=== PATIENT | male | born 1955 | race Caucasian/White ===

== ENCOUNTER 2019-06-16 21:18 | Observation (INO) | payer BC, SELFPAY ==
--- NOTE | ~2019-06-16 | XR_ITS ---
XR chest 1V portable DATE: 06/16/2019 22:56 INDICATION: Left upper quadrant pain. No injury. TECHNIQUE: Portable upright AP chest on 06/16/2019 at 2253 hours COMPARISON: 03/19/2019 PA and lateral chest FINDINGS: A rating specialist device is again noted overlying the left chest. No pulmonary infiltrate or consolidation, pleural effusion or pulmonary vascular congestion or pneumo thorax is evident. IMPRESSION: No active disease or significant change since 03/19/2019 Reviewed, dictated and finalized at location A.
--- NOTE | ~2019-06-16 | CT_ITS ---
EXAMINATION: CT abdomen pelvis wo con DATE: 06/16/2019 22:45 INDICATION: Left abdominal pain TECHNIQUE: Computed tomography (CT) of the abdomen and pelvis was performed without intravenous contr ast. Automated exposure control and iterative reconstruction technique were employed. The dose-length product was 1305.74 mGy-cm. COMPARISON: 03/20/2019 and 07/18/2018 FINDINGS: Nearly identical pattern of mild groundglass opacities and irregular septal line thickening with christoph pheral prominence of the bilateral lung bases which favors chronic interstitial lung disease in nonsp ecific interstitial pneumonia (NSIP) pattern over more acute pulmonary edema or pneumonia. Heart size is normal. Minimal atherosclerotic coronary artery calcification along the left anterior descending coronary artery. No pericardial or pleural effusion. Small sliding-type hiatal hernia. Several scattered small hepatic and splenic calcifications consistent with old granulomatous disease. Cholecystectomy clips the gallbladder fossa. Air-fluid level within a small duodenal diverticulum al gregoria the head of the pancreas. Pancreas is otherwise unremarkable. No interval change since 07/18/2018 in an 8 mm right thyroid nodule most likely an adenoma. Left thyroid and bilateral kidneys are normal . Normal appendix. There are few scattered colonic diverticula without adjacent inflammatory change t o suggest diverticulitis. No bowel obstruction. Bladder is normal. Calcifications along the penis con sistent with Peyronie's disease. No free intraperitoneal gas or fluid. No interval change since 2018 in mild mesenteric, retroperitoneal, peripancreatic and periportal lymphadenopathy which is more notable for number than size. There are bridging osteophytes at multiple levels in the spine, consis tent with diffuse idiopathic skeletal hyperostosis (DISH). Mild to moderate spondylosis and mild to m oderate bilateral hip osteoarthritis. Again seen are several scattered small sclerotic bone islands. Heterotopic ossification and atrophy of the left abductor longus suggesting sequela of chronic muscle strain, potentially proximal avulsion injury. IMPRESSION: 1. No acute intra-abdominal/pelvic process. 2. No significant interval change in mild likely reactive lymphadenopathy in the abdomen and pelvis. 3. Stable appearance of bibasilar chronic interstitial lung disease with NSIP pattern. 4. Small sliding-type hiatal hernia. Reviewed, dictated and finalized at location A. IMPRESSION: 1. No acute intra-abdominal/pelvic process. 2. No significant interval change in mild likely reactive lymphadenopathy in th e abdomen and pelvis. 3. Stable appearance of bibasilar chronic interstitial lung disease with NSIP p attern. 4. Small sliding-type hiatal hernia.
--- NOTE | ~2019-06-16 | US_ITS ---
EXAMINATION: US renal BI DATE: 06/17/2019 13:30 INDICATION: Chronic kidney disease TECHNIQUE: Multiple grayscale and Doppler ultrasound images of the kidneys were obtained. COMPARISON: 01/10/2018 FINDINGS: The right kidney measures 10.9 x 5.7 x 4.7 cm. The left kidney measures 10.1 x 4.7 x 6 cm. The kidneys demonstrate normal parenchymal echogenicity. There is no hydronephrosis. The bladder is m ildly distended. There is mild trabeculation of the bladder wall which could reflect chronic outlet o bstruction. IMPRESSION: 1. Normal kidneys without hydronephrosis. Reviewed, dictated and finalized at location A.
[2019-06-16 21:16] VITALS: BP 162/76; PULSE 107; RESP 20; TEMP 37; O2SAT 99
[2019-06-16 21:57] LABS: Basophils Absolute Auto 0.1 K/mm3 (0.0-0.1); Basophils Percent Auto 0.7 % (0.2-1.2); Eosinophils Absolute Auto 0.1 K/mm3 (0-0.3); Eosinophils Percent Auto 1.9 % (0-4.4); Hematocrit 35.7 % (42.0-52.0); Immature Granulocyte Absolute 0.02 K/mm3 (0.00-0.031); Immature Granulocyte Percent A 0.3 % (0-0.5); Lymphocytes Absolute Auto 2.29 K/mm3 (0.9-3.2); Lymphocytes Percent Auto 31.5 % (18.3-44.2); Mean Corpuscular HGB Conc 33.6 g/dl (32-36); Mean Corpuscular Hemoglobin 30.5 pg (26-34); Mean Corpuscular Volume 90.8 fl (80-100); Monocytes Absolute Auto 0.6 K/mm3 (0.1-0.6); Monocytes Percent Auto 8.5 % (2.6-8.5); Neutrophils Absolute Auto 4.1 K/mm3 (1.3-6.7); Neutrophils Percent Auto 57.1 % (45.5-73.1); Platelet Count Result 175 k/mm3 (150-375); Red Blood Count 3.93 M/mm3 (4.6-6.20); Red Cell Distribution Width 12.9 % (11.5-14.5); White Blood Count 7.3 K/mm3 (4.5-10.0)
[2019-06-16 21:59] VITALS: BP 171/82; PULSE 100; RESP 20; O2SAT 98
[2019-06-16 22:03] LABS: Add Urine Microscopic? YES; Appearance Urine Clear (Clear); Bacteria Urine Trace /hpf; Bilirubin Urine Negative (Negative); Blood Urine Negative (Negative); Color Urine Yellow (Yellow); Glucose Urine UA 3+ mg/dL (Negative); Ketones Urine Negative (Negative); Leukocyte Esterase Ur Negative LEU/UL (Negative); Nitrate Urine Negative (Negative); Protein Urine 2+ mg/dL (Negative); RBC Urine 0-2 /hpf (0-2); Specific Grav Ur 1.015 (1.001-1.035); Squamous Epithelial Cell Urine Occasional /hpf (Few); Urobilinogen Urine Negative mg/dL (<2.0); WBC Urine 0-3 /hpf
[2019-06-16 22:09] LABS: Alanine Aminotransferase 18 U/L (4-50); Albumin Level 3.9 g/dL (3.5-5.1); Alkaline Phosphatase 101 U/L (38-126); Aspartate Amino Transferase 23 U/L (17-59); Bilirubin,Total 0.2 mg/dL (0.2-1.3); Blood Urea Nitrogen 45 mg/dL (9-20); Calcium 8.6 mg/dL (8.4-10.2); Carbon Dioxide 30 mmol/L (22-30); Chloride 98 mmol/L (98-107); Estimated Glomerular Filt Rate 20; Glucose 154 mg/dL (75-110); Lipase 54 U/L (23-300); Potassium 3.8 mmol/L (3.4-5.0); Sodium 137 mmol/L (137-145)
--- NOTE | 2019-06-16 22:23 | ECG_ITS ---
Measurements Intervals [place] Rate: 94 P: 66 NV: 173 QRS: 91 QRSD: 114 T: -80 QT: 355 QTc: 446 Interpretive Statements SINUS RHYTHM RIGHT AXIS DEVIATION LEFT VENTRICULAR HYPERTROPHY AND ST-T CHANGE ST-T WAVE ABNORMALITY IN ANTEROLAT/INF LEADS- CONSIDER ISCHEMIA ABNORMAL ECG Electronically Signed On 06-17-2019 7:14:14 CDT by Colin Moreland D.O.
--- NOTE | 2019-06-16 22:25 | ED.ABDPAIN ---
HPI - Abdominal Pain General Chief Complaint: Abdominal Pain Stated Complaint: LUQ abd pain Time Seen by Provider: 06/16/19 22:12 Source: patient Mode of arrival: ambulatory Limitations: no limitations History of Present Illness HPI narrative: This patient is a 64 yo male with h/o HTN, DM, chronic kidney disease who presents with c/o left upper abdominal pain. Patient states his pain started suddenly 3 hours ago while he was watching TV. He describes his pain has constant sharp pain. He has nausea but no vomiting, diarrhea, shortness of breathing, cough or fever. He denies any exacerbating factors, and he did not try any treatment before coming to ER. He rates his pain 09/05. He also states he has had similar pain in the past but no cause has been found. MD elicited complaint: abdominal pain Related Data Home Medications Medication Instructions Recorded Confirmed aspirin [Aspirin Low Dose] 81 mg PO DAILY 01/08/19 06/17/19 atorvastatin 40 mg PO HS 01/08/19 06/17/19 gabapentin 400 mg PO TID 01/08/19 06/17/19 insulin aspart U-100 [Novolog 1 sliding scale dose SUBCUT 01/08/19 06/17/19 U-100 Insulin aspart] USEASDIRECTD metformin [Glucophage] 1,000 mg PO BID 01/08/19 06/17/19 metoprolol tartrate 25 mg PO Q12H 01/08/19 06/17/19 Allergies Allergy/AdvReac Type Severity Reaction Status Date / Time No Known Allergies Allergy Unknown Verified 06/16/19 21:21 Review of Systems Review of Systems: All systems reviewed & are unremarkable except as noted in HPI and below Constitutional: Constitutional: Denies chills and Denies fever(s) ENT: Denies dizziness Cardiovascular: Cardiovascular: Denies chest pain and Denies radiating jaw, neck or arm pain Respiratory: Respiratory: Denies cough, Denies dyspnea and Denies wheezing Gastrointestinal: Gastrointestinal: Reports abdominal pain, Denies constipation, Denies diarrhea, Reports nausea and Denies vomiting Genitourinary: Genitourinary: Denies hematuria, Denies oliguria, Denies dysuria and Denies urinary frequency PMF Past Medical History Medical History Arthritis CAD (coronary artery disease) Chronic anemia Diabetes mellitus Diabetic retinopathy H/O: HTN (hypertension) History of angina Hyperlipidemia Kidney stones NSTEMI (non-ST elevated myocardial infarction) Paroxysmal atrial fibrillation Peripheral neuropathy UTI (urinary tract infection) Surgical History Surgical History History of cholecystectomy Family History Family History Sibling Hypertension Father Polycystic kidney disease Colon cancer Diabetes mellitus Prostate carcinoma Mother Cerebrovascular accident CHF (congestive heart failure) Diabetes mellitus Social History Social History Smoking status: Never smoker Second hand tobacco smoke exposure: No Alcohol intake: former Substance use: never Gender identity (if verbalized by the patient): Male Spiritual care concerns: No Agree to blood products: Yes Exam Const: General: no acute distress and alert Orientation/consciousness: patient oriented x3 HENMT: General nose exam: Normal external nose present Face and sinus: face symmetric Eyes: Pupils: Equal, round and reactive pupils present EOM: EOMs intact bilaterally Chest: Chest palpation & inspection: normal inspection of the chest and tenderness (left lower anterior ribs) Resp: Effort & Inspection: normal respiratory effort, no retractions and no use of accessory muscles Auscultation: clear to auscultation bilaterally Cardio: Rate: regular rate Rhythm: regular rhythm Heart sounds: no murmurs GI: GI Palp: Yes Soft to palpation, Yes Tenderness to palpation present (GI) (LLQ, LUQ), No Guarding due to palpation present (GI) and No Rigid due to palpati
[2019-06-16] MEDS: LACTATED RINGERS 1,000 ML 999 ML IV CONT (22:28)
[2019-06-16 23:23] VITALS: BP 158/78; PULSE 97; RESP 20; O2SAT 97
[2019-06-16] MEDS: BELLADONNA ALK/PHENOB ELIX 10 ML, MAG HYDROX/ALUMINUM HYD/SIMETH 30 ML, LIDOCAINE HCL 2... PO (23:38)
[2019-06-17] VITALS (20 sets, daily range): BP systolic 137–165; BP diastolic 45–89; PULSE 71–101; RESP 14–20; TEMP 36.4–36.9; O2SAT 91–97; BMI 31.8; BMI 32.3
[2019-06-17 00:22] LABS: Troponin I 0.047 ng/mL (0.000-0.034)
[2019-06-17] MEDS: ONDANSETRON INJ 4 MG/2 ML VIAL IV PUSH (00:39)
[2019-06-17] MEDS: HYDROMORPHONE HCL 1 MG/ML INJ 0.5 MG IV PUSH (00:40)
[2019-06-17] MEDS: LACTATED RINGERS 1,000 ML 125 ML IV CONT ×4 (00:45→23:06)
[2019-06-17] MEDS: LACTATED RINGERS 1,000 ML 999 ML IV CONT (00:47)
--- NOTE | 2019-06-17 01:40 | ADMGEN ---
This patient, Jorge Alberto Cortez, was admitted to IMU Room 203-01 from ER 06/17/19 0115 Patient/family oriented to hospital policies and general routines including ID bracelet, bed and alarms, visiting hours, pain management, procedures, bathroom and other care routines, personal items, smoking policy, room service/diet, and visiting hours. Valuables list has been completed. Information on how to activate the Rapid Response Team has been discussed. Patient/Family are encouraged to report perceived risks to care and to ask questions if they do not understand what they are told or what they should do.
[2019-06-17 03:38] LABS: Troponin I 0.043 ng/mL (0.000-0.034)
[2019-06-17 05:17] LABS: Troponin I 0.044 ng/mL (0.000-0.034)
[2019-06-17 08:19] LABS: Glucose Point of Care 291 (65-105)
[2019-06-17] MEDS: METOPROLOL TARTRATE 25 MG TABLET PO ×2 (11:59→21:15)
[2019-06-17] MEDS: ASPIRIN 81 MG ENTERIC TABLET PO (11:59)
[2019-06-17] MEDS: INSULIN GLARGINE (*BKC) 100 UNITS/ML 45 UNITS SUB-Q ×2 (12:05→21:17)
[2019-06-17] MEDS: GABAPENTIN 400 MG CAPSULE PO ×2 (12:08→18:43)
[2019-06-17 13:02] LABS: Albumin Level 3.6 g/dL (3.5-5.1); Blood Urea Nitrogen 35 mg/dL (9-20); Calcium 8.4 mg/dL (8.4-10.2); Carbon Dioxide 33 mmol/L (22-30); Chloride 98 mmol/L (98-107); Estimated CRCL calculation 35 ml/min; Estimated Glomerular Filt Rate 24; Glucose 351 mg/dL (75-110); Phosphorus 3.4 mg/dL (2.5-4.5); Potassium 4.4 mmol/L (3.4-5.0); Sodium 137 mmol/L (137-145)
[2019-06-17] MEDS: INSULIN ASPART (*BKC) 100 UNITS/ML 10 UNITS SUB-Q (18:43)
--- NOTE | 2019-06-17 18:52 | PM.IMHP ---
H&P: HPI History of Present Illness Chief complaint: left upper abdominal pain, acute renal failure Narrative: Jorge Alberto Cortez is a 64 year old male with past medical history of uncontrolled diabetes, hypertension coronary artery disease and chronic kidney disease he presented emergency department with a complaint of left upper abdominal pain with nausea but no vomiting no fever or chills a chest pain or palpitation, CT scan of the abdomen did not show any significant pathology, his cardiac enzymes are elevated mild and flat however he does not have any complaint of chest pain, his found to have a acute on chronic kidney disease his baseline creatinine February 2019 was 1.1 he presented to emergency department with a creatinine of 3.1 and BUN of 45, bilateral kidney ultrasound are normal without any hydronephrosis, most likely dehydration will gently hydrate the patient and monitor kidney function Review of Systems Review of Systems: All systems reviewed & are unremarkable except as noted in HPI and below PMFSH Past Medical History Medical History Arthritis CAD (coronary artery disease) Chronic anemia Diabetes mellitus Diabetic retinopathy H/O: HTN (hypertension) History of angina Hyperlipidemia Kidney stones NSTEMI (non-ST elevated myocardial infarction) Paroxysmal atrial fibrillation Peripheral neuropathy UTI (urinary tract infection) Surgical History Surgical History History of cholecystectomy Family History Family History Sibling Hypertension Father Polycystic kidney disease Colon cancer Diabetes mellitus Prostate carcinoma Mother Cerebrovascular accident CHF (congestive heart failure) Diabetes mellitus Social History Social History Smoking status: Never smoker Second hand tobacco smoke exposure: No Alcohol intake: former Substance use: never Gender identity (if verbalized by the patient): Male Spiritual care concerns: No Agree to blood products: Yes Meds Home Medications and Allergies Home Medications Medication Instructions Recorded Confirmed Type aspirin [Aspirin Low Dose] 81 mg PO DAILY 01/08/19 06/17/19 History atorvastatin 40 mg PO HS 01/08/19 06/17/19 History gabapentin 400 mg PO TID 01/08/19 06/17/19 History insulin aspart U-100 [Novolog 1 sliding scale dose SUBCUT 01/08/19 06/17/19 History U-100 Insulin aspart] USEASDIRECTD metformin [Glucophage] 1,000 mg PO BID 01/08/19 06/17/19 History metoprolol tartrate 25 mg PO Q12H 01/08/19 06/17/19 History insulin aspart U-100 [Novolog 15 units SUBCUT TIDWM 30 Days 02/04/19 06/17/19 Rx U-100 Insulin aspart] #13.5 ml insulin glargine [Lantus U-100 45 units SUBCUT Q12HR 30 Days #27 02/04/19 06/17/19 Rx Insulin] ml Allergies Allergy/AdvReac Type Severity Reaction Status Date / Time No Known Allergies Allergy Unknown Verified 06/16/19 21:21 Vital Signs Vital Signs - 24 hr 06/16/19 21:16 06/16/19 21:59 06/16/19 23:23 Temperature 98.6 F Pulse Rate 107 H 100 97 Respiratory Rate 20 20 20 Blood Pressure 162/76 H 171/82 H 158/78 H Pulse Oximetry 99 98 97 06/17/19 00:29 06/17/19 00:53 06/17/19 01:07 Temperature Pulse Rate 98 97 98 Respiratory Rate 20 20 20 Blood Pressure 161/78 H 159/85 H 157/89 H Pulse Oximetry 97 97 97 06/17/19 01:39 06/17/19 01:58 06/17/19 02:00 Temperature 98.2 F Pulse Rate 95 94 98 Respiratory Rate 16 Blood Pressure 137/64 Pulse Oximetry 95 06/17/19 03:40 06/17/19 04:00 06/17/19 06:00 Temperature 97.6 F Pulse Rate 100 95 100 Respiratory Rate 16 Blood Pressure 163/53 H Pulse Oximetry 91 06/17/19 08:00 06/17/19 10:00 06/17/19 11:59 Temperature 97.8 F Pulse Rate 100 99 98 Respiratory Rate 14 Blood Pressure 147/54 H Pulse Oximetry 97
[2019-06-17] MEDS: ATORVASTATIN 40 MG TABLET PO (21:15)
[2019-06-17] MEDS: INSULIN ASPART (*BKC) 100 UNITS/ML 8 UNITS SUB-Q (21:18)
[2019-06-17 23:15] LABS: Glucose Point of Care 330 (65-105)
[2019-06-18] VITALS (11 sets, daily range): BP systolic 141–157; BP diastolic 49–71; PULSE 67–95; RESP 14–22; TEMP 36.1–37.4; O2SAT 95–97
[2019-06-18 05:40] LABS: Blood Urea Nitrogen 28 mg/dL (9-20); Calcium 8.7 mg/dL (8.4-10.2); Carbon Dioxide 35 mmol/L (22-30); Chloride 100 mmol/L (98-107); Estimated CRCL calculation 48 ml/min; Estimated Glomerular Filt Rate 36; Glucose 260 mg/dL (75-110); Potassium 3.8 mmol/L (3.4-5.0); Sodium 140 mmol/L (137-145)
[2019-06-18 07:37] LABS: Glucose Point of Care 369 (65-105)
[2019-06-18] MEDS: INSULIN GLARGINE (*BKC) 100 UNITS/ML 45 UNITS SUB-Q ×2 (08:44→20:44)
[2019-06-18] MEDS: INSULIN ASPART (*BKC) 100 UNITS/ML 10 UNITS SUB-Q (08:45)
[2019-06-18] MEDS: METOPROLOL TARTRATE 25 MG TABLET PO ×2 (08:46→20:43)
[2019-06-18] MEDS: GABAPENTIN 400 MG CAPSULE PO ×3 (08:46→16:59)
[2019-06-18] MEDS: ASPIRIN 81 MG ENTERIC TABLET PO (08:46)
[2019-06-18] MEDS: LACTATED RINGERS 1,000 ML 125 ML IV CONT ×2 (08:46→15:25)
--- NOTE | 2019-06-18 10:41 | PM.IMPN ---
Progress Note: A&P Assessment and Plan (1) Acute on chronic kidney failure: Qualifiers: Acute renal failure type: unspecified Chronic kidney disease stage: unspecified stage Qualified Code(s): N17.9 - Acute kidney failure, unspecified; N18.9 - Chronic kidney disease, unspecified Code(s): N17.9 - Acute kidney failure, unspecified; N18.9 - Chronic kidney disease, unspecified Status: Acute Assessment and Plan: Creatinine on presentation 3.10 and now down to 1.90. Renal ultrasound with normal kidneys and no hydronephrosis. Will decrease IV fluid rate. May have some component of BPH and will add tamsulosin. Telemetry reviewed on 06/18/2019 with sinus rhythm. Will transfer to medical floor. Hopeful discharge tomorrow. (2) Abdominal pain, acute, left upper quadrant: Code(s): R10.12 - Left upper quadrant pain Status: Acute Assessment and Plan: CT abdomen/pelvis No acute intra-abdominal/pelvic process. Pain is already improving. Suspect related to acute on chronic renal failure. Tolerating diet. Will monitor for now. (3) Diabetes mellitus: Qualifiers: Diabetes mellitus type: type 2 Diabetes mellitus [facility] insulin use: with exterminator helper termite use Diabetes mellitus complication status: with kidney complications Diabetes mellitus complication detail: with chronic kidney disease Chronic kidney disease stage: stage 3 (moderate) Qualified Code(s): E11.22 - Type 2 diabetes mellitus with diabetic chronic kidney disease; N18.3 - Chronic kidney disease, stage 3 (moderate); Z79.4 - [facility] (current) use of insulin Code(s): E11.9 - Type 2 diabetes mellitus without complications Status: Chronic Assessment and Plan: Glucose reviewed On 06/18/2019 and elevated. Will check hemoglobin A1c. Continue home Lantus. Increase mealtime insulin to home dose. Will also continue sliding scale insulin. Hold metformin for now. Will continue to monitor and adjust treatment as needed. (4) Elevated troponin: Code(s): R79.89 - Other specified abnormal findings of blood chemistry Status: Acute Assessment and Plan: Mild and flat elevation of troponins. No ACS. Telemetry reviewed on 06/18/2019 with sinus rhythm. No further evaluation at this time. (5) Hypertension: Qualifiers: Hypertension type: essential hypertension Qualified Code(s): I10 - Essential (primary) hypertension Code(s): I10 - Essential (primary) hypertension Status: Acute Assessment and Plan: Blood pressure reviewed on 06/18/2019 with mild elevation. Will continue to monitor on home metoprolol. Adjust treatment as needed. (6) DVT prophylaxis: Code(s): Z29.9 - Encounter for prophylactic measures, unspecified Status: Acute Assessment and Plan: SCDs. Time Spent With Patient Time with patient: 15 - 25 minutes Subjective Date/time seen: 06/18/19 10:41 Interval history: Date of Service: 06/18/2019. Admitted with acute on chronic renal failure, upper abdominal pain. Patient is feeling better today. Does still have pain in the upper quadrants. No nausea or vomiting. No chest pain or shortness of breath. Patient reports was having decreased urinary stream prior to presentation. Urinary stream improving. No dysuria or hematuria. Review of Systems Constitutional: Constitutional: Denies chills and Denies fever(s) ENT: Denies dysphagia Cardiovascular: Cardiovascular: Denies chest pain Respiratory: Respiratory: Denies cough and Denies dyspnea Gastrointestinal: Gastrointestinal: Reports abdominal pain (Improving upper quadrants), Denies nausea and Denies vomiting Genitourinary: Genitourinary: Denies hematuria, Denies dysuria and Denies urinary frequency Comments: decreased urinary stream Musculoskeletal: Musculoskeletal: Denies back pain Integumentary/Breasts: Skin/Breast: Denies rash Neurologic: Denies headache(s) Psychiatric: Psychi
[2019-06-18 11:43] LABS: Glucose Point of Care 232 (65-105)
[2019-06-18 11:59] LABS: Glucose Point of Care 262 (65-105)
[2019-06-18] MEDS: INSULIN ASPART (*BKC) 100 UNITS/ML 15 UNITS SUB-Q ×2 (12:37→16:58)
[2019-06-18] MEDS: TAMSULOSIN HCL 0.4 MG CAPSULE PO (12:38)
--- NOTE | 2019-06-18 13:19 | PC.NURSE ---
This patient, Jorge Alberto Cortez, was transferred to [facility] [place] on 06/18/19 at 1300. Personal belongings sent with patient. Belongings list checked and signed with receiving. Report given to KEELY Rodney. Appropriate documentation sent with patient.
--- NOTE | 2019-06-18 13:20 | PC.NURSE ---
This patient, Jorge Alberto Cortez, was received from [facility] on 06/18/19 at 1320. Personal belongings list checked and signed. Patient/family oriented to unit policies and routines.
[2019-06-18 16:47] LABS: Glucose Point of Care 209 (65-105)
[2019-06-18] MEDS: INSULIN ASPART (*BKC) 100 UNITS/ML SUB-Q (16:58)
[2019-06-18] MEDS: ATORVASTATIN 40 MG TABLET PO (20:43)
[2019-06-18 20:57] LABS: Glucose Point of Care 235 (65-105)
[2019-06-18] MEDS: LACTATED RINGERS 1,000 ML 75 ML IV CONT (23:55)
[2019-06-19] VITALS: BP 167/73; PULSE 96; RESP 18; TEMP 37.2; O2SAT 98
[2019-06-19 04:00] VITALS: BP 164/68; PULSE 71; RESP 18; TEMP 36.6; O2SAT 98
[2019-06-19 06:27] LABS: Hemoglobin A1C > 14.0 % (<5.7)
[2019-06-19 06:28] LABS: Albumin Level 4.1 g/dL (3.5-5.1); Blood Urea Nitrogen 20 mg/dL (9-20); Calcium 8.7 mg/dL (8.4-10.2); Carbon Dioxide 35 mmol/L (22-30); Chloride 101 mmol/L (98-107); Estimated CRCL calculation 64 ml/min; Estimated Glomerular Filt Rate 51; Glucose 262 mg/dL (75-110); Phosphorus 3.7 mg/dL (2.5-4.5); Potassium 3.8 mmol/L (3.4-5.0); Sodium 142 mmol/L (137-145)
[2019-06-19 07:41] LABS: Glucose Point of Care 251 (65-105)
[2019-06-19] MEDS: ASPIRIN 81 MG ENTERIC TABLET PO (07:50)
[2019-06-19] MEDS: GABAPENTIN 400 MG CAPSULE PO ×2 (07:50→12:18)
[2019-06-19] MEDS: TAMSULOSIN HCL 0.4 MG CAPSULE PO (07:50)
[2019-06-19 07:51] VITALS: PULSE 100
[2019-06-19] MEDS: METOPROLOL TARTRATE 25 MG TABLET PO (07:51)
[2019-06-19] MEDS: INSULIN ASPART (*BKC) 100 UNITS/ML 15 UNITS SUB-Q ×2 (07:52→11:32)
[2019-06-19] MEDS: INSULIN ASPART (*BKC) 100 UNITS/ML SUB-Q ×2 (07:52→11:33)
[2019-06-19] MEDS: INSULIN GLARGINE (*BKC) 100 UNITS/ML 50 UNITS SUB-Q (07:53)
[2019-06-19 07:57] VITALS: BP 135/82; PULSE 100
[2019-06-19 10:00] VITALS: BP 140/64; PULSE 72; RESP 16; TEMP 36.2; O2SAT 98
[2019-06-19 11:30] LABS: Glucose Point of Care 259 (65-105)
--- NOTE | 2019-06-19 13:31 | PM.IMPN ---
Progress Note: A&P Assessment and Plan (1) Acute on chronic kidney failure: Qualifiers: Acute renal failure type: unspecified Chronic kidney disease stage: unspecified stage Qualified Code(s): N17.9 - Acute kidney failure, unspecified; N18.9 - Chronic kidney disease, unspecified Code(s): N17.9 - Acute kidney failure, unspecified; N18.9 - Chronic kidney disease, unspecified Status: Acute Assessment and Plan: Creatinine on presentation 3.10. Renal ultrasound with normal kidneys and no hydronephrosis. Creatinine improved to 1.40 today. Will discharge home today. Will continue tamsulosin at home as may have contributed to issues. Follow-up renal function as outpatient. (2) Abdominal pain, acute, left upper quadrant: Code(s): R10.12 - Left upper quadrant pain Status: Acute Assessment and Plan: CT abdomen/pelvis No acute intra-abdominal/pelvic process. No complaint of pain today. Tolerating diet. (3) Diabetes mellitus: Qualifiers: Chronic kidney disease stage: stage 3 (moderate) Diabetes mellitus complication detail: with chronic kidney disease Diabetes mellitus complication status: with kidney complications Diabetes mellitus [facility] insulin use: with terminal carman use Diabetes mellitus type: type 2 Qualified Code(s): E11.22 - Type 2 diabetes mellitus with diabetic chronic kidney disease; N18.3 - Chronic kidney disease, stage 3 (moderate); Z79.4 - intermediate accountant (current) use of insulin Code(s): E11.9 - Type 2 diabetes mellitus without complications Status: Chronic Assessment and Plan: Glucose reviewed On 06/19/2019 and remains elevated. Hemoglobin A1c greater than 14.0. Lantus already advanced this morning. Continue mealtime insulin. Will continue to hold metformin for now with creatinine level but may be able to resume as outpatient. Will need to follow glucose as an outpatient. (4) Elevated troponin: Code(s): R79.89 - Other specified abnormal findings of blood chemistry Status: Acute Assessment and Plan: Mild and flat elevation of troponins. No ACS. Telemetry reviewed on 06/18/2019 with sinus rhythm. No further evaluation at this time. (5) Hypertension: Qualifiers: Hypertension type: essential hypertension Qualified Code(s): I10 - Essential (primary) hypertension Code(s): I10 - Essential (primary) hypertension Status: Acute Assessment and Plan: Blood pressure reviewed on 06/19/2019 and acceptable. Will continue home metoprolol. (6) DVT prophylaxis: Code(s): Z29.9 - Encounter for prophylactic measures, unspecified Status: Acute Assessment and Plan: SCDs. Time Spent With Patient Time with patient: 15 - 25 minutes Subjective Date/time seen: 06/19/19 13:31 Interval history: Date of Service: 06/19/2019. Admitted with acute on chronic renal failure, upper abdominal pain. Feels better today. Urinary stream improving. No abdominal pain. No chest pain or shortness of breath. Hoping to go home. Review of Systems Review of Systems: Narrative: Feels better. Hoping to go home. Constitutional: Constitutional: Denies chills and Denies fever(s) ENT: Denies dysphagia Cardiovascular: Cardiovascular: Denies chest pain Respiratory: Respiratory: Denies cough and Denies dyspnea Gastrointestinal: Gastrointestinal: Denies abdominal pain, Denies nausea and Denies vomiting Genitourinary: Genitourinary: Denies hematuria, Denies dysuria and Denies urinary frequency Musculoskeletal: Musculoskeletal: Denies back pain Integumentary/Breasts: Skin/Breast: Denies rash Neurologic: Denies headache(s) Psychiatric: Psychiatric: Denies anxiety, Denies confusion and Denies depression Exam Narrative: Exam Narrative: Awake and alert. Const: General: no acute distress HENMT: Mouth: Yes moist mucous membranes Neck: Neck: supple Lymphatic: lymphadenopathy not noted Resp:
--- NOTE | 2019-06-19 18:41 | PM.DS ---
DS: Diagnosis Admitting Diagnosis Admitting Diagnosis: Acute kidney failure, unspecified Discharge Diagnosis (1) Acute on chronic kidney failure: Qualifiers: Acute renal failure type: unspecified Chronic kidney disease stage: unspecified stage Qualified Code(s): N17.9 - Acute kidney failure, unspecified; N18.9 - Chronic kidney disease, unspecified Code(s): N17.9 - Acute kidney failure, unspecified; N18.9 - Chronic kidney disease, unspecified Status: Acute (2) Abdominal pain, acute, left upper quadrant: Code(s): R10.12 - Left upper quadrant pain Status: Acute (3) Diabetes mellitus: Qualifiers: Diabetes mellitus type: type 2 Diabetes mellitus mcc insulin use: with mcc use Diabetes mellitus complication status: with kidney complications Diabetes mellitus complication detail: with chronic kidney disease Chronic kidney disease stage: stage 3 (moderate) Qualified Code(s): E11.22 - Type 2 diabetes mellitus with diabetic chronic kidney disease; N18.3 - Chronic kidney disease, stage 3 (moderate); Z79.4 - [employer] (current) use of insulin Code(s): E11.9 - Type 2 diabetes mellitus without complications Status: Chronic (4) Elevated troponin: Code(s): R79.89 - Other specified abnormal findings of blood chemistry Status: Acute (5) Hypertension: Qualifiers: Hypertension type: essential hypertension Qualified Code(s): I10 - Essential (primary) hypertension Code(s): I10 - Essential (primary) hypertension Status: Acute DS: Summary Hospital Course Reason for hospitalization: Left upper abdominal pain. Hospital Course: Date of Service of Discharge: June 19, 2019. History of Present Illness: Patient is a 64-year-old gentleman with known uncontrolled type 2 diabetes mellitus insulin requiring, hypertension, coronary artery disease and chronic kidney disease stage 3 who presented to the emergency room with complaint of left upper abdominal pain. Patient had no fever or chills. He did have nausea without vomiting. No chest pain or palpitations. No recent new exposures. Patient did note having decreased urinary stream but no dysuria or hematuria. In the emergency room patient did have CT scan of the abdomen/pelvis without significant abnormality. He was noted to have mild elevation of his cardiac enzymes. He was also found to have acute on chronic renal failure. With these findings, he was placed in observation for further evaluation and treatment. Course in Hospital: Patient was initially placed in the IMU due to mild elevation of troponin levels. Troponin levels remained only mildly elevated and flat. Patient had no chest pain and no further evaluation was needed. Left upper quadrant pain did improve rapidly and was resolved by the time of discharge. Patient was able to transfer from the IMU to the medical floor on 06/18/2019 and remained there for the duration of his stay. He had no nausea or vomiting throughout his stay. Patient was noted to have significant elevation of creatinine at 3.10 on admission. All nephrotoxic agents were held with patient started on IV fluids. Creatinine gradually improved and was down to 1.40 by the day of discharge. Urinary stream had started to also improve with the addition of tamsulosin as he appeared to have some component of BPH causing obstruction and potentially aggravating his kidney function. Glucose was monitored throughout his stay and was elevated. His home metformin was held on admission with plan to continue to hold as an outpatient until follow-up with primary physician. Hemoglobin A1c was greater than 14.0. He was continued on Lantus with dose advanced during his stay. He was also continued on scheduled NovoLog with meals and sliding scale insulin. He was maintained on a diabetic diet. He was advised he would need to continue monitoring glucose at home and may need further adjustments
== END 2019-06-19 14:15 | disposition home or self-care (01) ==
LOC: ANHED 06-17 00:40 → ANHIMU 06-17 02:08 → ANH2MED 06-18 14:03 → ANHIMU 06-21 12:48
PROVIDERS: Family Medicine; Admitting Provider Internal Medicine; Emergency Provider General Practice; PCP Family Medicine; Visit Provider Hospitalist
DX: N17.9 Acute kidney failure, unspecified (principal); R10.12 Left upper quadrant pain; E11.22 Type 2 diabetes mellitus with diabetic chronic kidney disease; I12.9 Hypertensive chronic kidney disease with stage 1 through stage 4 chronic kidney disease, or unspecified chronic kidney disease; N18.3 Chronic kidney disease, stage 3 (moderate); E11.42 Type 2 diabetes mellitus with diabetic polyneuropathy; E11.65 Type 2 diabetes mellitus with hyperglycemia; I25.10 Atherosclerotic heart disease of native coronary artery without angina pectoris; R79.89 Other specified abnormal findings of blood chemistry; R39.198 Other difficulties with micturition; Z79.4 Long term (current) use of insulin; Z79.82 Long term (current) use of aspirin
CPT/HCPCS: 36415; 71045; 74176; 76775; 80048; 80053; 80069; 81001; 83036; 83690; 84484; 85025; 93005; 96361; 96374; 96375; 99285; A9270; G0378; J1170; J1815; J2405; J7120

== ENCOUNTER 2019-08-23 21:40 | Observation (INO) | payer BC, SELFPAY ==
--- NOTE | ~2019-08-23 | CT_ITS ---
EXAMINATION: CT abdomen pelvis wo con DATE: 08/23/2019 22:52 INDICATION: Abdominal pain TECHNIQUE: Computed tomography (CT) of the abdomen and pelvis was performed without intravenous contr ast. The dose-length product (DLP) was 1819.40 mGy-cm. Automated exposure control and iterative recon struction technique were employed. COMPARISON: 06/16/2019 FINDINGS: There are unchanged subpleural reticular and groundglass opacities in the visualized lung b ases, consistent with chronic interstitial lung disease in a pattern of nonspecific interstitial pneu monia (NSIP). The heart size is normal. The gallbladder is surgically absent. Punctate calcifications in an otherwise normal spleen likely represent healed granulomatous disease. The liver, pancreas, an d left adrenal gland are normal. A stable 8 mm nodule of the right adrenal gland likely represents an adenoma. The kidneys are unremarkable. Mild periportal, retroperitoneal, and mesenteric lymphadenopa thy is unchanged and likely reactive. The appendix is normal. No pathologically enlarged abdominal or pelvic lymph nodes are identified. There is mild to moderate lumbar spondylosis. IMPRESSION: 1. No CT correlate for the patient's symptoms. 2. Unchanged mild lymphadenopathy, likely reactive. Reviewed, dictated and finalized at location A.
--- NOTE | ~2019-08-23 | XR_ITS ---
EXAMINATION: XR chest 1V portable INDICATION: Dizziness and hypertension TECHNIQUE: Portable AP chest at 2015 hours COMPARISON: 06/16/2019 FINDINGS: The lungs are free of acute opacities. There is no pleural effusion or pneumothorax. The ca rdiomediastinal silhouette is normal. A cardiac loop recorder projects over the left mid thorax. IMPRESSION: 1. No acute cardiopulmonary abnormality. Reviewed, dictated and finalized at location A.
[2019-08-23 21:39] VITALS: BP 127/63; PULSE 122; RESP 18; TEMP 36.8; O2SAT 96
--- NOTE | 2019-08-23 21:52 | ED.GENADULT ---
HPI - General Adult General Chief complaint: Dizziness Stated complaint: dizzyness Time Seen by Provider: 08/23/19 21:43 Source: RN notes reviewed History of Present Illness HPI narrative: Patient presents emergency department from home via EMS for dizziness. Patient states he was not feeling well this evening and states that his blood sugars been running low. States that he last ate at approximately 4:30 PM this evening and states he checked his blood sugar tonight and it was in the 70s which is low for him he normally runs 120 and 140. He also says starting this afternoon he began to have pain in his left lower chest and left upper abdomen. He denies any fevers or chills shortness of breath nausea vomiting diarrhea or any other symptoms. Related Data Home Medications Medication Instructions Recorded Confirmed aspirin [Aspirin Low Dose] 81 mg PO DAILY 01/08/19 06/17/19 atorvastatin 40 mg PO HS 01/08/19 06/17/19 gabapentin 400 mg PO TID 01/08/19 06/17/19 insulin aspart U-100 [Novolog 1 sliding scale dose SUBCUT 01/08/19 06/17/19 U-100 Insulin aspart] USEASDIRECTD metformin [Glucophage] 1,000 mg PO BID 01/08/19 06/17/19 metoprolol tartrate 25 mg PO Q12H 01/08/19 06/17/19 Allergies Allergy/AdvReac Type Severity Reaction Status Date / Time No Known Allergies Allergy Unknown Verified 08/23/19 21:45 Review of Systems Review of Systems: Narrative: Gen.: Denies fevers or chills Eyes: Denies eye pain or visual change ENT: Denies congestion Respiratory: Denies shortness of breath or cough CV: Reports chest pain GI: Reports left upper quadrant dull pain, denies nausea vomiting or diarrhea denies burning, urgency, frequency or hematuria Musculoskeletal: Denies back pain or muscle pain Neuro: Denies numbness, tingling, weakness or focal weakness Skin: Denies rash Except as documented, all other systems reviewed and negative [facility] Past Medical History Medical History Arthritis CAD (coronary artery disease) Chronic anemia Diabetes mellitus Diabetic retinopathy H/O: HTN (hypertension) History of angina Hyperlipidemia Kidney stones NSTEMI (non-ST elevated myocardial infarction) Paroxysmal atrial fibrillation Peripheral neuropathy UTI (urinary tract infection) Social History Social History Smoking status: Never smoker Second hand tobacco smoke exposure: No Alcohol intake: former Substance use: never Gender identity (if verbalized by the patient): Male Spiritual care concerns: No Agree to blood products: Yes Exam Narrative: Exam Narrative: APPEARANCE: No acute distress, nontoxic, resting in bed EYES: EOMI HEENT: Normocephalic, atraumatic, OMM RESPIRATORY: No respiratory distress Clear to auscultation bilaterally with no rhonchi wheezing or rales. CARDIOVASCULAR: Regular rate and rhythm without murmurs rubs or gallops. ABDOMINAL: Soft, nondistended, tender palpation left upper quadrant, no tenderness right upper quadrant, right lower quadrant left lower quadrant, no rebound or guarding MUSCULOSKELETAl: Moves all extremities. No clubbing, cyanosis or edema. NEURO: Awake and alert. Following commands, speech normal, no focal deficits SKIN:: Warm, dry. No rashes lesions or abrasions PSYCHIATRIC: Normal affect/mood, Course Course Emergency Course: Reviewed old records. Patient has been seen in the ED for similar complaints performed past. Patient's troponins consistently mildly elevated. Has been evaluated by cardiology with negative work-ups. EKG unchanged from prior Discussed with Dr. Smith presentation and work-up. Agrees with admission at this time Discussed with patient and family results of workup and diagnosis. Discussed need for admission. Patient and family understand and agree to current treatment plan Vital Signs Vital signs: Vital Signs Temperature 98.3 F 08/23/19 21:39 Pu
[2019-08-23] MEDS: SODIUM CHLORIDE 0.9% IV 1,000 ML 999 ML IV CONT (22:13)
[2019-08-23 22:16] LABS: Basophils Absolute Auto 0.1 K/mm3 (0.0-0.1); Basophils Percent Auto 0.8 % (0.2-1.2); Eosinophils Absolute Auto 0.1 K/mm3 (0-0.3); Eosinophils Percent Auto 1.8 % (0-4.4); Hematocrit 33.7 % (42.0-52.0); Hemoglobin 11.4 g/dL (14.0-18.0); Immature Granulocyte Absolute 0.02 K/mm3 (0.00-0.031); Immature Granulocyte Percent A 0.3 % (0-0.5); Lymphocytes Absolute Auto 2.12 K/mm3 (0.9-3.2); Lymphocytes Percent Auto 26.9 % (18.3-44.2); Mean Corpuscular HGB Conc 33.8 g/dl (32-36); Mean Corpuscular Volume 94.7 fl (80-100); Monocytes Absolute Auto 0.5 K/mm3 (0.1-0.6); Monocytes Percent Auto 6.5 % (2.6-8.5); Neutrophils Percent Auto 63.7 % (45.5-73.1); Platelet Count Result 215 k/mm3 (150-375); Red Blood Count 3.56 M/mm3 (4.6-6.20); Red Cell Distribution Width 13.7 % (11.5-14.5); White Blood Count 7.9 K/mm3 (4.5-10.0)
[2019-08-23 22:25] LABS: Alanine Aminotransferase 28 U/L (4-50); Albumin Level 4.4 g/dL (3.5-5.1); Alkaline Phosphatase 88 U/L (38-126); Aspartate Amino Transferase 38 U/L (17-59); Bilirubin,Total 0.2 mg/dL (0.2-1.3); Blood Urea Nitrogen 39 mg/dL (9-20); Calcium 9.2 mg/dL (8.4-10.2); Carbon Dioxide 28 mmol/L (22-30); Chloride 103 mmol/L (98-107); Estimated CRCL calculation 30 ml/min; Estimated Glomerular Filt Rate 20; Glucose 88 mg/dL (75-110); Lipase 104 U/L (23-300); Potassium 3.7 mmol/L (3.4-5.0); Sodium 139 mmol/L (137-145)
[2019-08-23 22:27] LABS: INR 0.9; Partial Thromboplastin Time 23.1 SECONDS (22.3-36.8); Prothrombin Time 11.7 Seconds (11.1-14.7)
--- NOTE | 2019-08-23 22:29 | PC.NURSE ---
URINAL GIVEN TO PATIENT FOR SAMPLE PER TECH
[2019-08-23 22:41] LABS: Glucose Point of Care 70 (65-105)
[2019-08-23 22:52] LABS: Troponin I 0.054 ng/mL (0.000-0.034)
--- NOTE | 2019-08-23 23:00 | PC.NURSE ---
patient feeling drowsy, checked own sugar with touchless meter and it is reading 58, tech to recheck with hospital issued meter.
[2019-08-23 23:03] LABS: Glucose Point of Care 81 (65-105)
--- NOTE | 2019-08-23 23:09 | ECG_ITS ---
Measurements Intervals Neche Rate: 117 P: 36 NM: 180 QRS: 83 QRSD: 96 T: 250 QT: 308 QTc: 430 Interpretive Statements SINUS TACHYCARDIA LEFT VENTRICULAR HYPERTROPHY WITH ST-T CHANGE ST-T WAVE ABNORMALITY IN ANTEROLAT/INF LEADS- CONSIDER ISCHEMIA ABNORMAL ECG Electronically Signed On 08-24-2019 7:38:19 CDT by Colin Moreland D.O.
--- NOTE | 2019-08-23 23:09 | PC.NURSE ---
Received report from Eliza, assumed care of this patient at this time.
[2019-08-23 23:11] LABS: Add Urine Microscopic? YES; Appearance Urine Clear (Clear); Bacteria Urine Trace /hpf; Bilirubin Urine Negative (Negative); Blood Urine Negative (Negative); Color Urine Yellow (Yellow); Glucose Urine UA 3+ mg/dL (Negative); Hyaline Casts Urine 20-29 /lpf; Ketones Urine Negative (Negative); Leukocyte Esterase Ur Negative LEU/UL (Negative); Mucus Urine Rare /lpf; Nitrate Urine Negative (Negative); Protein Urine 2+ mg/dL (Negative); RBC Urine 0-2 /hpf (0-2); Specific Grav Ur 1.014 (1.001-1.035); Squamous Epithelial Cell Urine Many /hpf (Few); Urobilinogen Urine Negative mg/dL (<2.0); WBC Urine 0-3 /hpf
--- NOTE | 2019-08-23 23:11 | PC.NURSE ---
metallurgical lab technician states patient's bedside glucose is 83, Dr. Jameson informed.
[2019-08-23 23:15] VITALS: BP 139/60; PULSE 106; RESP 13; O2SAT 97
[2019-08-23 23:47] VITALS: BP 146/65; PULSE 108
[2019-08-23 23:48] VITALS: PULSE 107
[2019-08-24] VITALS (24 sets, daily range): BP systolic 119–168; BP diastolic 52–83; PULSE 89–121; RESP 13–20; TEMP 36.1–36.7; O2SAT 93–100; BMI 33.0
[2019-08-24] MEDS: ASPIRIN 81 MG CHEWABLE TABLET 324 MG PO (00:18)
--- NOTE | 2019-08-24 01:19 | ADMIMU ---
This patient, Jorge Alberto Cortez, was admitted to IMU status, and placed in IMU Room 203-01 at 0110 on 08/24/19. Patient/family oriented to hospital policies and general routines including ID bracelet, bed and alarms, visiting hours, pain management, procedures, bathroom and other care routines, personal items, smoking policy, room service/diet, and visiting hours. Valuables list has been completed. Information on how to activate the Rapid Response Team has been discussed. Patient/Family are encouraged to report perceived risks to care and to ask questions if they do not understand what they are told or what they should do.
[2019-08-24] MEDS: SODIUM CHLORIDE 0.9% IV 1,000 ML 100 ML IV CONT ×2 (01:34→12:47)
[2019-08-24 02:17] LABS: Hemoglobin A1C 10.2 % (<5.7)
[2019-08-24 04:25] LABS: Glucose Point of Care 86 (65-105)
[2019-08-24 04:34] LABS: Blood Urea Nitrogen 41 mg/dL (9-20); Calcium 8.4 mg/dL (8.4-10.2); Carbon Dioxide 28 mmol/L (22-30); Chloride 106 mmol/L (98-107); Estimated CRCL calculation 35 ml/min; Estimated Glomerular Filt Rate 24; Glucose 91 mg/dL (75-110); Potassium 3.6 mmol/L (3.4-5.0); Sodium 138 mmol/L (137-145)
[2019-08-24 04:44] LABS: Troponin I 0.055 ng/mL (0.000-0.034)
--- NOTE | 2019-08-24 06:45 | PM.IMHP ---
H&P: HPI History of Present Illness Chief complaint: Dizziness Narrative: Date and time of patient contact: 08/24/2019 at 5:45 a.m. Jorge Alberto Cortez is a 64 year old male well known to the hospitalist service with a past medical history of uncontrolled diabetes mellitus, chronically elevated troponin, and chronic kidney disease who presented to the ER via EMS with dizziness. The patient reports that he was actually feeling in his usual state of health, lying down when he had sudden onset of dizziness. He reports that he had last a at approximately 4:30 p.m.. He checked his blood sugar when he became dizzy and his glucoses were 70. He reports that his usual glucoses are in the 120s to 140s. He denies having moved his head or reposition himself and thinks that his dizziness is due to his glucoses being lower than usual. He reports that the room was actually spinning and he felt nauseated. His glucose on arrival to the ER was 96. When the patient was discharged from the hospital in May he was instructed did not resume his home metformin until instructed to do so by his primary care physician. His metformin had been held due to acute on chronic renal failure. Unfortunately, he has is medications automatically delivered to his home and he thinks that he has been taking his metformin as it was filled on 08/10/2019. He does not think he has had repeat lab since he was discharged from the hospital. He has noticed decreased urine output recently but denies any dysuria or hematuria. He has been feeling some mild increased thirst but denies any nausea or vomiting. He does report some left upper abdominal/left lower chest discomfort that was almost completely relieved with a GI cocktail in the ER. He had a CT performed in the ER that demonstrated no radiologic findings to explain the patient's pain. He reports he has had only a minimal return of his abdominal discomfort this morning. He denies having any decreased appetite. He has not skipped any meals. He has not had any recent adjustments in his Lantus or mealtime bolus insulin. The patient was given a meal in the ER and has not had a recurrence of his dizziness. The patient's hemoglobin A1c in May was greater than 14. His hemoglobin A1c currently is 10.2. Review of Systems Review of Systems: Narrative: 12 systems were reviewed with pertinent positives and negatives per HPI. Except as documented in the HPI, all other systems were reviewed and are negative. The patient is a fair historian. 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 Kaplan Chronic anemia Chronic kidney disease Stage III 0.9 and 1.4 over the last year CVA (cerebral vascular accident) CTA head and neck September 2018: Old infarct in the right occipital lobe and right caudate nucleus Diabetes mellitus Historically uncontrolled with hemoglobin A1c of 14 in May and current hemoglobin A1c of 10.2 (July 2018) Diabetic nephropathy Diabetic retinopathy Diastolic dysfunction Noted on prior echocardiogram but most recent echocardiogram demonstrating hyperdynamic left ventricle with EF greater than 70% with no mention of diastolic dysfunction Essential hypertension History of angina Hyperlipidemia Kidney stones NSTEMI (non-ST elevated myocardial infarction) With chronic troponin elevation Orthostatic hypotension Paroxysmal atrial fibrillation Not on anticoagulation due to high has bled score/high fall risk Peripheral neuropathy UTI (urinary tract infection) Surgical History Surgical History (Updated 08/24/19 @ 07:07 by Mary Smith DO) History of cholecystectomy Status post cataract extraction of both eyes with insertion of intraocular lens Family History Family History Sibling Hypertension Father Polyc
[2019-08-24 08:40] LABS: Glucose Point of Care 65 (65-105)
[2019-08-24] MEDS: FAMOTIDINE 20 MG TABLET PO ×2 (09:16→20:55)
[2019-08-24] MEDS: GABAPENTIN 400 MG CAPSULE PO ×3 (09:17→16:51)
[2019-08-24] MEDS: TAMSULOSIN HCL 0.4 MG CAPSULE PO (09:17)
[2019-08-24] MEDS: METOPROLOL TARTRATE 25 MG TABLET PO ×2 (09:17→20:54)
[2019-08-24] MEDS: ASPIRIN 81 MG ENTERIC TABLET PO (09:17)
[2019-08-24] MEDS: GLUCOSE ORAL GEL 15 GM OF GLUCSE IN 37.5 GM TUBE PO (09:21)
[2019-08-24 10:12] LABS: Glucose Point of Care 154 (65-105)
--- NOTE | 2019-08-24 10:26 | PC.NURSE ---
This patient, Jorge Alberto Cortez, was transferred to [facility] on 08/24/19 at 1027. Personal belongings sent with patient. Report given to Brook. Appropriate documentation sent with patient.
--- NOTE | 2019-08-24 10:30 | PC.NURSE ---
Received patient from IMU via bed with IMU staff. Settled patient into room. No c/o pain. No distress noted. Patient alert and oriented x 3. Denies any further dizziness since hypoglycemia has resolved.
[2019-08-24] MEDS: INSULIN ASPART (*BKC) 100 UNITS/ML 15 UNITS SUB-Q ×2 (11:30→16:51)
[2019-08-24 11:31] LABS: Glucose Point of Care 209 (65-105)
--- NOTE | 2019-08-24 13:29 | PM.IMPN ---
Subjective Date/time seen: 08/24/19 13:29 Interval history: 64 year old male well known to the hospitalist service with a past medical history of uncontrolled diabetes mellitus, chronically elevated troponin, and chronic kidney disease who presented to the ER via EMS with dizziness. Pt seen by marshall this morning. pt admitted with ARF, DM and CKD. Agree with history and physical Pt feels better receiving IV hydration. Vitals stable exam benign. Continue iv hydration and hopeful discharge soon creat is 2.7, baseline is 1.4. Objective Data Vital Signs Vital Signs: Vital Signs - 24 hr 08/23/19 21:39 08/23/19 23:15 08/23/19 23:47 Temperature 36.8 C Pulse Rate 122 H 106 H 108 H Respiratory Rate 18 13 Blood Pressure 127/63 139/60 146/65 H Pulse Oximetry 96 97 08/23/19 23:48 08/24/19 00:00 08/24/19 00:13 Temperature Pulse Rate 107 H 105 H 120 H Respiratory Rate Blood Pressure 122/52 L Pulse Oximetry 08/24/19 00:15 08/24/19 00:16 08/24/19 00:17 Temperature Pulse Rate 113 H 114 H 113 H Respiratory Rate 20 20 16 Blood Pressure 140/61 119/63 Pulse Oximetry 08/24/19 00:18 08/24/19 00:30 08/24/19 00:31 Temperature Pulse Rate 120 H 106 H 106 H Respiratory Rate 13 16 Blood Pressure 122/52 L 131/72 Pulse Oximetry 08/24/19 01:15 08/24/19 01:17 08/24/19 01:20 Temperature 36.1 C L 36.7 C Pulse Rate 121 H 121 H 107 H Respiratory Rate 20 20 20 Blood Pressure 151/64 H 151/66 H Pulse Oximetry 98 98 96 08/24/19 02:00 08/24/19 04:00 08/24/19 05:42 Temperature 36.2 C L Pulse Rate 98 95 99 Respiratory Rate 20 Blood Pressure 154/62 H Pulse Oximetry 97 08/24/19 08:00 08/24/19 09:17 08/24/19 10:00 Temperature 36.5 C Pulse Rate 96 102 H 102 H Respiratory Rate 18 Blood Pressure 144/62 H Pulse Oximetry 93 08/24/19 12:00 Temperature Pulse Rate 100 Respiratory Rate Blood Pressure Pulse Oximetry Intake/Output Intake/Output: Intake & Output 08/21/19 08/22/19 08/23/19 08/24/19 23:59 23:59 23:59 23:59 Intake Total 1000 1120 Balance 1000 1120 Meds/Results Medications: Active Medications Generic Name Dose Route Start Last Admin Trade Name Freq PRN Reason Stop Dose Admin Aspirin 81 mg 08/24/19 09:00 08/24/19 09:17 Aspirin Ec PO 81 mg DAILY NIKA Administration Atorvastatin Calcium 40 mg 08/24/19 21:00 Lipitor PO HS NIKA Famotidine 20 mg 08/24/19 09:00 08/24/19 09:16 Pepcid PO 20 mg Q12HR NIKA Administration Gabapentin 400 mg 08/24/19 09:00 08/24/19 12:46 Neurontin PO 400 mg TID NIKA Administration Glucose 15 gm 08/24/19 09:14 08/24/19 09:21 Glutose 15 PO 15 gm PRN PRN Administration Hypoglycemia Sodium Chloride 1,000 mls @ 100 mls/hr 08/24/19 00:15 08/24/19 12:47 Normal Saline Iv IV CONT 100 mls/hr .Q10H NIKA Administration Insulin Aspart 15 units 08/24/19 08:00 08/24/19 11:30 Novolog SUB-Q 09/23/19 08:01 15 units TIDWM NIKA Administration Insulin Glargine 45 units 08/24/19 09:00 08/24/19 09:12 Lantus SUB-Q Not Given Q12HR NIKA Metoprolol Tartrate 25 mg 08/24/19 09:00 08/24/19 09:17 Lopressor PO 25 mg Q12HR NIKA Administration Tamsulosin HCl 0.4 mg 08/24/19 09:00 08/24/19 09:17 Flomax PO 0.4 mg QAM NIKA Administration Radiology Results: ITS Impressions Chest X-Ray 08/23/19 22:27 IMPRESSION: 1. No acute cardiopulmonary abnormality. Abdomen/Pelvis CT 08/23/19 23:04 IMPRESSION: 1. No CT correlate for the patient's symptoms. 2. Unchanged mild lymphadenopathy, likely reactive. Labs Labs: Laboratory Results - last 24 hr 08/23/19 08/23/19 08/23/19 22:08 22:08 22:08 WBC 7.9 RBC 3.56 L Hgb 11.4 L Hct 33.7 L MCV 94.7 MCH 32.0 MCHC 33.8 RDW 13.7 Plt Count 215 MPV 11.0 H Immature Gran % (Auto) 0.3 Neut % (Auto) 63.7 Lymph % (Auto) 26.9
[2019-08-24 17:04] LABS: Glucose Point of Care 157 (65-105)
[2019-08-24] MEDS: ATORVASTATIN 40 MG TABLET PO (20:55)
[2019-08-24] MEDS: INSULIN GLARGINE (*BKC) 100 UNITS/ML 45 UNITS SUB-Q (20:55)
[2019-08-24 21:12] LABS: Glucose Point of Care 228 (65-105)
[2019-08-25] VITALS: PULSE 95
[2019-08-25] MEDS: SODIUM CHLORIDE 0.9% IV 1,000 ML 100 ML IV CONT (01:05)
[2019-08-25 02:00] VITALS: BP 171/80; PULSE 94; RESP 16; TEMP 36.8; O2SAT 96
[2019-08-25 04:00] VITALS: PULSE 87
[2019-08-25 05:28] LABS: Basophils Absolute Auto 0.1 K/mm3 (0.0-0.1); Basophils Percent Auto 1.1 % (0.2-1.2); Eosinophils Absolute Auto 0.2 K/mm3 (0-0.3); Eosinophils Percent Auto 3.2 % (0-4.4); Hematocrit 33.2 % (42.0-52.0); Immature Granulocyte Absolute 0.03 K/mm3 (0.00-0.031); Immature Granulocyte Percent A 0.5 % (0-0.5); Lymphocytes Absolute Auto 1.53 K/mm3 (0.9-3.2); Lymphocytes Percent Auto 24.7 % (18.3-44.2); Mean Corpuscular HGB Conc 33.1 g/dl (32-36); Mean Corpuscular Hemoglobin 31.3 pg (26-34); Mean Corpuscular Volume 94.6 fl (80-100); Mean Platelet Volume 10.4 fl (7.4-10.4); Monocytes Absolute Auto 0.5 K/mm3 (0.1-0.6); Monocytes Percent Auto 7.6 % (2.6-8.5); Neutrophils Absolute Auto 3.9 K/mm3 (1.3-6.7); Neutrophils Percent Auto 62.9 % (45.5-73.1); Platelet Count Result 204 k/mm3 (150-375); Red Blood Count 3.51 M/mm3 (4.6-6.20); Red Cell Distribution Width 13.2 % (11.5-14.5); White Blood Count 6.2 K/mm3 (4.5-10.0)
[2019-08-25 06:00] VITALS: BP 157/66; PULSE 88; RESP 16; TEMP 36.8; O2SAT 96
[2019-08-25 06:03] LABS: Blood Urea Nitrogen 24 mg/dL (9-20); Calcium 8.1 mg/dL (8.4-10.2); Carbon Dioxide 30 mmol/L (22-30); Chloride 105 mmol/L (98-107); Estimated CRCL calculation 55 ml/min; Estimated Glomerular Filt Rate 41; Glucose 251 mg/dL (75-110); Potassium 3.8 mmol/L (3.4-5.0); Sodium 140 mmol/L (137-145)
[2019-08-25 08:00] VITALS: PULSE 97
[2019-08-25 08:11] LABS: Glucose Point of Care 273 (65-105)
[2019-08-25] MEDS: INSULIN ASPART (*BKC) 100 UNITS/ML 15 UNITS SUB-Q ×2 (08:13→11:53)
[2019-08-25] MEDS: INSULIN GLARGINE (*BKC) 100 UNITS/ML 45 UNITS SUB-Q (08:13)
[2019-08-25 08:18] VITALS: PULSE 97
[2019-08-25] MEDS: TAMSULOSIN HCL 0.4 MG CAPSULE PO (08:18)
[2019-08-25] MEDS: FAMOTIDINE 20 MG TABLET PO (08:18)
[2019-08-25] MEDS: GABAPENTIN 400 MG CAPSULE PO ×2 (08:18→11:55)
[2019-08-25] MEDS: METOPROLOL TARTRATE 25 MG TABLET PO (08:18)
[2019-08-25] MEDS: ASPIRIN 81 MG ENTERIC TABLET PO (08:18)
--- NOTE | 2019-08-25 10:40 | PM.IMPN ---
Subjective Date/time seen: Feeling a little better, denies chest pain, still weak. 08/25/19 10:40 Review of Systems Review of Systems: All systems reviewed & are unremarkable except as noted in HPI and below Exam Const: General: no acute distress Neck: Neck: supple and no JVD Resp: Auscultation: clear to auscultation bilaterally Cardio: Rate: regular rate Rhythm: regular rhythm GI: Auscultation: normal bowel sounds Skin: General skin exam: normal color and no rashes or lesions noted Neuro: Motor exam (neuro): 5/5 motor strength present throughout and Normal motor muscle tone present throughout Extrem: General: normal to inspection Objective Data Vital Signs Vital Signs: Vital Signs - 24 hr 08/24/19 12:00 08/24/19 14:00 08/24/19 16:00 Temperature 97.6 F Pulse Rate 100 91 89 Respiratory Rate 20 Blood Pressure 142/69 H Pulse Oximetry 97 08/24/19 18:00 08/24/19 20:00 08/24/19 20:54 Temperature 97.4 F L Pulse Rate 94 93 94 Respiratory Rate 20 Blood Pressure 157/80 H Pulse Oximetry 100 08/24/19 21:49 08/25/19 00:00 08/25/19 02:00 Temperature 97.8 F 98.2 F Pulse Rate 101 H 95 94 Respiratory Rate 16 16 Blood Pressure 168/83 H 171/80 H Pulse Oximetry 95 96 08/25/19 04:00 08/25/19 06:00 08/25/19 08:18 Temperature 98.2 F Pulse Rate 87 88 97 Respiratory Rate 16 Blood Pressure 157/66 H Pulse Oximetry 96 Intake/Output Intake/Output: Intake & Output 08/22/19 08/23/19 08/24/19 08/25/19 23:59 23:59 23:59 23:59 Intake Total 1000 2610 680 Balance 1000 2610 680 Meds/Results Medications: Active Medications Generic Name Dose Route Start Last Admin Trade Name Freq PRN Reason Stop Dose Admin Aspirin 81 mg 08/24/19 09:00 08/25/19 08:18 Aspirin Ec PO 81 mg DAILY NIKA Administration Atorvastatin Calcium 40 mg 08/24/19 21:00 08/24/19 20:55 Lipitor PO 40 mg HS NIKA Administration Famotidine 20 mg 08/24/19 09:00 08/25/19 08:18 Pepcid PO 20 mg Q12HR NIKA Administration Gabapentin 400 mg 08/24/19 09:00 08/25/19 08:18 Neurontin PO 400 mg TID NIKA Administration Glucose 15 gm 08/24/19 09:14 08/24/19 09:21 Glutose 15 PO 15 gm PRN PRN Administration Hypoglycemia Sodium Chloride 1,000 mls @ 70 mls/hr 08/24/19 00:15 08/25/19 01:05 Normal Saline Iv IV CONT 100 mls/hr .[id number] NIKA Administration Insulin Aspart 15 units 08/24/19 08:00 08/25/19 08:13 Novolog SUB-Q 09/23/19 08:01 15 units TIDWM NIKA Administration Insulin Glargine 45 units 08/24/19 09:00 08/25/19 08:13 Lantus SUB-Q 45 units Q12HR NIKA Administration Metoprolol Tartrate 25 mg 08/24/19 09:00 08/25/19 08:18 Lopressor PO 25 mg Q12HR NIKA Administration Tamsulosin HCl 0.4 mg 08/24/19 09:00 08/25/19 08:18 Flomax PO 0.4 mg QAM NIKA Administration Radiology Results: ITS Impressions Chest X-Ray 08/23/19 22:27 IMPRESSION: 1. No acute cardiopulmonary abnormality. Abdomen/Pelvis CT 08/23/19 23:04 IMPRESSION: 1. No CT correlate for the patient's symptoms. 2. Unchanged mild lymphadenopathy, likely reactive. Labs Labs: Laboratory Results - last 24 hr 08/24/19 08/24/19 08/24/19 11:28 16:38 20:51 WBC RBC Hgb Hct MCV MCH MCHC RDW Plt Count MPV Immature Gran % (Auto) Neut % (Auto) Lymph % (Auto) [place] % (Auto) Eos % (Auto) Baso % (Auto) Lymph # (Auto) [place] # (Auto) Eos # (Auto) Baso # (Auto) Abs Immat Gran (auto) Absolute Neuts (auto) Absolute Nucleated RBC Nucleated RBC % Sodium Potassium Chloride Carbon Dioxide BUN Creatinine Estim Creat Clear Calc Estimated GFR Glucose POC Capillary Glucose 209 H 157 H 228 H Calcium 08/25/19 08/25/19 08/25/19 04:53 04:53 07:51 WBC 6.2 RBC 3.51 L Hgb 11.0 L Hct 33.2 L MCV 94.6
[2019-08-25 11:49] LABS: Glucose Point of Care 231 (65-105)
--- NOTE | 2019-08-25 16:04 | PM.DS ---
DS: Admitting Diagnosis Admitting Diagnosis Admitting Diagnosis: Acute kidney failure, unspecified DS: Discharge Diagnosis Discharge Diagnosis (1) Orthostatic hypotension: Code(s): I95.1 - Orthostatic hypotension Status: Acute (2) Elevated troponin: Code(s): R79.89 - Other specified abnormal findings of blood chemistry Status: Acute (3) Hypertension: Qualifiers: Hypertension type: essential hypertension Qualified Code(s): I10 - Essential (primary) hypertension Code(s): I10 - Essential (primary) hypertension Status: Acute (4) Diabetes mellitus, with long-term current use of insulin: Qualifiers: Diabetes mellitus type: type 2 Diabetes mellitus complication status: with kidney complications Diabetes mellitus complication detail: with chronic kidney disease Chronic kidney disease stage: stage 3 (moderate) Qualified Code(s): E11.22 - Type 2 diabetes mellitus with diabetic chronic kidney disease; N18.3 - Chronic kidney disease, stage 3 (moderate); Z79.4 - residential (current) use of insulin Code(s): E11.9 - Type 2 diabetes mellitus without complications; Z79.4 - 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 He denies urinary symptoms, no diarrhea, no chest pain this morning. He most likely he has autonomic dysfunction given his long standing DM and becomes orthostatic. His ANDREW on CKD is most likely related to the hypotensive episode, his renal function is close to baseline this morning and he is feeling back to normal. He had a mild elevation of troponins which is most likely related to his CKD, his ekg did not show acute ST segment changes and he denies chest pain this morning. He was seen by PT prior to discharge and he is doing well,not orthostatic or dizzy, he was discharged and he should f/u with his PCP in 2 weeks. He was advised to stop taking metformin, the rest of his medications will remain the same. Status at Discharge Overall status at discharge: patient is back to baseline Time Spent with Patient Time attestation: Total time spent providing and/or coordinating discharge services: Time spent: Greater than 30 minutes Exam Const: General: comfortable and no acute distress Eyes: General: appearance normal, both eyes and all related structures Neck: Neck: supple and no JVD Resp: Effort & Inspection: normal respiratory effort Auscultation: clear to auscultation bilaterally Cardio: Rate: regular rate Rhythm: regular rhythm Neuro: Motor exam (neuro): 5/5 motor strength present throughout Sensory Exam: normal sensation Extrem: General: normal to inspection Psych: Affect: normal affect DS: Data Data Completed and Pending Labs on day of discharge: Labs from last 24 hours 08/25/19 08/25/19 08/25/19 11:33 07:51 04:53 WBC RBC Hgb Hct MCV MCH MCHC RDW Plt Count MPV Immature Gran % (Auto) Neut % (Auto) Lymph % (Auto) [place] % (Auto) Eos % (Auto) Baso % (Auto) Lymph # (Auto) [place] # (Auto) Eos # (Auto) Baso # (Auto) Abs Immat Gran (auto) Absolute Neuts (auto) Absolute Nucleated RBC Nucleated RBC % Sodium 140 Potassium 3.8 Chloride 105 Carbon Dioxide 30 BUN 24 H D Creatinine 1.70 H Estim Creat Clear Calc 55 Estimated GFR 41 L Glucose 251 H POC Capillary Glucose 231 H 273 H
== END 2019-08-25 13:08 | disposition home or self-care (01) ==
LOC: ANHED 08-24 00:23 → ANHIMU 08-24 00:35 → ANH2MED 08-24 10:16
PROVIDERS: Admitting Provider Internal Medicine; Emergency Provider Emergency Medicine; PCP Family Medicine; Visit Provider Hospitalist
DX: I95.1 Orthostatic hypotension (principal); R79.89 Other specified abnormal findings of blood chemistry; N17.9 Acute kidney failure, unspecified; E11.22 Type 2 diabetes mellitus with diabetic chronic kidney disease; I12.9 Hypertensive chronic kidney disease with stage 1 through stage 4 chronic kidney disease, or unspecified chronic kidney disease; N18.3 Chronic kidney disease, stage 3 (moderate); E11.42 Type 2 diabetes mellitus with diabetic polyneuropathy; E11.319 Type 2 diabetes mellitus with unspecified diabetic retinopathy without macular edema; I25.10 Atherosclerotic heart disease of native coronary artery without angina pectoris; I25.2 Old myocardial infarction; Z79.4 Long term (current) use of insulin; Z79.82 Long term (current) use of aspirin; Z86.73 Personal history of transient ischemic attack (TIA), and cerebral infarction without residual deficits
CPT/HCPCS: 36415; 71045; 74176; 80048; 80053; 81001; 82948; 83036; 83690; 84484; 85025; 85610; 85730; 93005; 96360; 96361; 97161; 99285; A9270; G0378; G0379; J1815; J7030

== ENCOUNTER 2019-09-03 19:07 | Emergency (ER) | payer BC, SELFPAY ==
[2019-09-03 19:13] VITALS: BP 143/74; PULSE 116; RESP 16; TEMP 37.3; O2SAT 97
--- NOTE | 2019-09-03 19:13 | ED.GENADULT ---
HPI - General Adult General Chief complaint: Dizziness Stated complaint: high blood sugar History of Present Illness HPI narrative: Patient is a 64-year-old male with history of diabetes who presents the ER with hyperglycemia. Reports several hours ago he started feeling dizzy with spinning dizziness. He checked his blood sugar was over 400. For EMS it was over 550. Patient reports he is taken 3 doses of his insulin today at 20 units each time. Patient also reports that he has been compliant with his metformin. He has no new infections that he can tell. He is without red or tender skin. No shortness of breath. He is without runny nose/sore throat/productive cough. Is not experiencing any chest pain. Related Data Home Medications Medication Instructions Recorded Confirmed aspirin [Aspirin Low Dose] 81 mg PO DAILY 01/08/19 08/24/19 atorvastatin 40 mg PO HS 01/08/19 08/24/19 gabapentin 400 mg PO TID 01/08/19 08/24/19 insulin aspart U-100 [Novolog 1 sliding scale dose SUBCUT TIDWM 01/08/19 08/24/19 U-100 Insulin aspart] metoprolol tartrate 25 mg PO Q12H 01/08/19 08/24/19 Allergies Allergy/AdvReac Type Severity Reaction Status Date / Time No Known Allergies Allergy Unknown Verified 08/23/19 21:45 Review of Systems Review of Systems: All systems reviewed & are unremarkable except as noted in HPI and below Constitutional: Constitutional: Denies chills, Denies fever(s) and Reports weakness Eyes: Eyes: Denies change in vision and Denies photophobia ENT: Reports dizziness and Denies sore throat Cardiovascular: Cardiovascular: Denies chest pain and Denies radiating jaw, neck or arm pain Respiratory: Respiratory: Denies cough, Denies dyspnea and Denies wheezing Gastrointestinal: Gastrointestinal: Denies abdominal pain, Denies nausea and Denies vomiting Genitourinary: Genitourinary: Denies dysuria and Denies urinary frequency [facility] Past Medical History Medical History (Updated 09/03/19 @ 23:30 by Benton Zavala MD) Arthritis CAD (coronary artery disease) Negative stress test November 2018 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 Chronic anemia Chronic kidney disease Stage III 0.9 and 1.4 over the last year CVA (cerebral vascular accident) CTA head and neck September 2018: Old infarct in the right occipital lobe and right caudate nucleus Diabetes mellitus Historically uncontrolled with hemoglobin A1c of 14 in May and current hemoglobin A1c of 10.2 (July 2018) Diabetic nephropathy Diabetic retinopathy Diastolic dysfunction Noted on prior echocardiogram but most recent echocardiogram demonstrating hyperdynamic left ventricle with EF greater than 70% with no mention of diastolic dysfunction Essential hypertension History of angina Hyperlipidemia Kidney stones NSTEMI (non-ST elevated myocardial infarction) With chronic troponin elevation Orthostatic hypotension Paroxysmal atrial fibrillation Not on anticoagulation due to high has bled score/high fall risk Peripheral neuropathy UTI (urinary tract infection) Surgical History Surgical History (Updated 08/24/19 @ 07:07 by Mary Smith DO) History of cholecystectomy Status post cataract extraction of both eyes with insertion of intraocular lens Social History Social History (Updated 08/24/19 @ 07:16 by Mary Smith DO) Social History: Care provider: Dr. Lobo Polk Code status: Full code per EMR He has 2 daughters who are relatively healthy. Smoking status: Never smoker Second hand tobacco smoke exposure: Yes Alcohol intake: never Substance use: never Additional living arrangements comments: The patient is currently living alone. He had been placed in a [facility] for 3 years previously until he had corrective surgery for vision loss associated with his diabetes. He was discharged from [facility] December 2017. 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
--- NOTE | 2019-09-03 19:15 | ECG_ITS ---
Measurements Intervals [place] Rate: 104 P: 24 UT: 182 QRS: 77 QRSD: 104 T: 245 QT: 348 QTc: 460 Interpretive Statements SINUS TACHYCARDIA ST-T WAVE ABNORMALITY IN ANTEROLAT/INF LEADS- CONSIDER ISCHEMIA ABNORMAL ECG Electronically Signed On 09-04-2019 6:49:51 CDT by Colin Moreland D.O.
[2019-09-03 19:31] LABS: Alveolar/Arterial O2 Gradient 23.7 mmHg; Base Excess ABG 0.7 mEq/l (+/-2.0); Carboxyhemoglobin 0.3 % THb (0-2.0); Fractional Inspired Oxygen 21 %; HCO3 ABG 25.6 mEq/l (22.0-26.0); Methemoglobin ABG 0.2 %THb (0-1.5); Oxygen Content ABG 15.3 %vol (16.0-22.0); Oxygen Saturation ABG 95.2 % (95.0-100.0); Oxyhemoglobin 93.3 % THb (90.0-100.0); PCO2 ABG 42.1 mmHg (35.0-45.0); PO2 ABG 75.6 mmHg (80.0-100.0); Reduced Hemoglobin 6.2 %THb (0-5.0); Total Hemoglobin 11.6 g/dL (12.0-18.0); pH ABG 7.401 (7.350-7.450)
[2019-09-03 19:32] LABS: Device ROOM AIR; Modified Allen's Test Pass; Site Drawn RIGHT RADIAL
[2019-09-03] MEDS: SODIUM CHLORIDE 0.9% IV 1,000 ML 999 ML IV CONT ×2 (19:57→21:14)
[2019-09-03 20:00] VITALS: BP 132/68; PULSE 108; RESP 14; O2SAT 96
[2019-09-03 20:07] LABS: Glucose Point of Care 384 (65-105)
[2019-09-03 20:15] LABS: Basophils Percent Auto 0.7 % (0.2-1.2); Eosinophils Absolute Auto 0.1 K/mm3 (0-0.3); Eosinophils Percent Auto 2.2 % (0-4.4); Hematocrit 30.7 % (42.0-52.0); Hemoglobin 10.5 g/dL (14.0-18.0); Immature Granulocyte Absolute 0.01 K/mm3 (0.00-0.031); Immature Granulocyte Percent A 0.2 % (0-0.5); Lymphocytes Absolute Auto 1.53 K/mm3 (0.9-3.2); Lymphocytes Percent Auto 25.9 % (18.3-44.2); Mean Corpuscular HGB Conc 34.2 g/dl (32-36); Mean Corpuscular Volume 93.6 fl (80-100); Mean Platelet Volume 11.2 fl (7.4-10.4); Monocytes Absolute Auto 0.4 K/mm3 (0.1-0.6); Monocytes Percent Auto 6.6 % (2.6-8.5); Neutrophils Absolute Auto 3.8 K/mm3 (1.3-6.7); Neutrophils Percent Auto 64.4 % (45.5-73.1); Platelet Count Result 185 k/mm3 (150-375); Red Blood Count 3.28 M/mm3 (4.6-6.20); Red Cell Distribution Width 13.3 % (11.5-14.5); White Blood Count 5.9 K/mm3 (4.5-10.0)
[2019-09-03 20:29] LABS: Beta-Hydroxybutyrate/Acetoacetate 0.06 mmol/L (0.02-0.27)
[2019-09-03 21:00] VITALS: BP 165/76; PULSE 106; RESP 14; O2SAT 96
[2019-09-03 21:28] LABS: Add Urine Microscopic? YES; Appearance Urine Clear (Clear); Bilirubin Urine Negative (Negative); Blood Urine Negative (Negative); Color Urine Straw (Yellow); Glucose Urine UA 3+ mg/dL (Negative); Ketones Urine Negative (Negative); Leukocyte Esterase Ur Negative LEU/UL (Negative); Nitrate Urine Negative (Negative); Protein Urine 1+ mg/dL (Negative); Specific Grav Ur 1.024 (1.001-1.035); Urobilinogen Urine Negative mg/dL (<2.0); WBC Urine 0-3 /hpf
[2019-09-03 21:42] LABS: Alanine Aminotransferase 30 U/L (4-50); Albumin Level 3.8 g/dL (3.5-5.1); Alkaline Phosphatase 101 U/L (38-126); Aspartate Amino Transferase 36 U/L (17-59); Bilirubin,Total 0.1 mg/dL (0.2-1.3); Blood Urea Nitrogen 28 mg/dL (9-20); Carbon Dioxide 29 mmol/L (22-30); Chloride 99 mmol/L (98-107); Estimated CRCL calculation 54 ml/min; Estimated Glomerular Filt Rate 41; Glucose 406 mg/dL (75-110); Magnesium 1.7 mg/dL (1.6-2.3); Phosphorus 2.7 mg/dL (2.5-4.5); Potassium 3.6 mmol/L (3.4-5.0); Sodium 136 mmol/L (137-145)
[2019-09-03 22:20] VITALS: BP 157/71; PULSE 116; RESP 17; O2SAT 94
[2019-09-03 23:00] VITALS: BP 173/69; PULSE 103; RESP 16; O2SAT 96
[2019-09-03 23:30] LABS: Glucose Point of Care 229 (65-105)
[2019-09-03 23:45] VITALS: BP 161/80; PULSE 103; RESP 16; O2SAT 95
== END 2019-09-04 00:01 | disposition home or self-care (01) ==
PROVIDERS: Emergency Provider Emergency Medicine; PCP Family Medicine
DX: E11.65 Type 2 diabetes mellitus with hyperglycemia (principal); E11.21 Type 2 diabetes mellitus with diabetic nephropathy; E11.319 Type 2 diabetes mellitus with unspecified diabetic retinopathy without macular edema; E11.42 Type 2 diabetes mellitus with diabetic polyneuropathy; E11.22 Type 2 diabetes mellitus with diabetic chronic kidney disease; I12.9 Hypertensive chronic kidney disease with stage 1 through stage 4 chronic kidney disease, or unspecified chronic kidney disease; N18.3 Chronic kidney disease, stage 3 (moderate); D63.1 Anemia in chronic kidney disease; E78.5 Hyperlipidemia, unspecified; I48.0 Paroxysmal atrial fibrillation; Z79.4 Long term (current) use of insulin; Z79.82 Long term (current) use of aspirin; Z87.440 Personal history of urinary (tract) infections; Z86.73 Personal history of transient ischemic attack (TIA), and cerebral infarction without residual deficits; Z87.442 Personal history of urinary calculi; R00.0 Tachycardia, unspecified; R94.31 Abnormal electrocardiogram [ECG] [EKG]
CPT/HCPCS: 36415; 36600; 80053; 81001; 82010; 82375; 82805; 82948; 83050; 83735; 84100; 85025; 93005; 96360; 96361; 99283; J7030

== ENCOUNTER 2019-09-05 20:23 | Observation (INO) | payer BC, SELFPAY ==
--- NOTE | ~2019-09-05 | CT_ITS ---
EXAMINATION: CT abdomen pelvis wo con DATE: 09/06/2019 00:02 INDICATION: Left abdominal pain. TECHNIQUE: Computed tomography (CT) of the abdomen and pelvis was performed without intravenous contr ast. Automated exposure control and iterative reconstruction technique were employed. The dose-length product was 1550.99 mGy-cm. COMPARISON: CT abdomen and pelvis 08/23/2019, 07/18/2018 FINDINGS: The visualized portions of the lung bases demonstrate mild atelectasis and mild chronic int erstitial lung disease. No pleural effusion. The heart size is normal. There are coronary artery calc ifications. No pericardial effusion. There is diffuse hepatic steatosis. Calcifications in the liver and spleen are consistent with old granulomatous disease. There are changes of cholecystectomy. The p ancreas, adrenal glands, and kidneys are normal. There is no urolithiasis. There is diverticulosis of the colon without evidence of diverticulitis. The appendix is normal. There are no dilated loops of bowel. There is mild periportal lymphadenopathy with the largest node measuring 17 x 20 mm. There is no free intraperitoneal fluid. There is mild lumbar spondylosis. There are bridging endplate osteophy yee at multiple levels in the thoracic spine, consistent with diffuse idiopathic skeletal hyperostosi s (DISH). IMPRESSION: 1. Diffuse hepatic steatosis. 2. Chronic mild periportal lymphadenopathy, likely reactive. 3. Mild chronic interstitial lung disease. Reviewed, dictated and finalized at location A.
--- NOTE | ~2019-09-05 | XR_ITS ---
EXAMINATION: XR chest 1V portable DATE: 09/06/2019 00:06 INDICATION: Syncope TECHNIQUE: frontal view of the chest was obtained. COMPARISON: Chest radiograph dated 08/23/2019 FINDINGS: Indistinct margins of the left hemidiaphragm due to left paracardial fat pad and lordotic positioning . Lungs remain clear with no focal airspace opacities, pulmonary edema, pleural effusion or pneumotho rax. The cardiomediastinal silhouette is normal. Implantable wood milling machine tender projecting over the left pectoral region. IMPRESSION: 1. No acute cardiopulmonary disease. Reviewed, dictated and finalized at location A.
--- NOTE | ~2019-09-05 | CT_ITS ---
EXAMINATION: CT brain wo con DATE: 09/06/2019 00:02 INDICATION: Syncope. TECHNIQUE: Computed tomography (CT) of the head was performed without intravenous contrast. The mA wa s adjusted according to patient size. Iterative reconstruction technique was employed. The dose-lengt h product was 681.00 mGy-cm. 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 There is a small old infarct in right oc cipital lobe. There are scattered areas of low attenuation in the cerebral white matter, which is wit hin normal limits for the patient's age. There is no intracranial hemorrhage, acute infarction, or ab normal intracranial mass lesion. Colpocephaly is noted. There are likely changes of ocular lens repla cement surgeries. There is mild mucosal thickening in the ethmoid sinuses. The mastoid air cells are normal. IMPRESSION: 1. Small old infarct in right occipital lobe. 2. Complete agenesis of the corpus callosum. Reviewed, dictated and finalized at location A.
[2019-09-05 20:44] VITALS: BP 131/67; PULSE 111; RESP 14; TEMP 37.2; O2SAT 96
[2019-09-05 21:25] LABS: Glucose Point of Care 360 (65-105)
[2019-09-05 21:59] LABS: Basophils Absolute Auto 0.1 K/mm3 (0.0-0.1); Basophils Percent Auto 0.8 % (0.2-1.2); Eosinophils Absolute Auto 0.2 K/mm3 (0-0.3); Eosinophils Percent Auto 2.2 % (0-4.4); Hematocrit 34.1 % (42.0-52.0); Hemoglobin 11.4 g/dL (14.0-18.0); Immature Granulocyte Absolute 0.03 K/mm3 (0.00-0.031); Immature Granulocyte Percent A 0.4 % (0-0.5); Lymphocytes Absolute Auto 1.67 K/mm3 (0.9-3.2); Lymphocytes Percent Auto 22.8 % (18.3-44.2); Mean Corpuscular HGB Conc 33.4 g/dl (32-36); Mean Corpuscular Hemoglobin 31.3 pg (26-34); Mean Corpuscular Volume 93.7 fl (80-100); Mean Platelet Volume 10.7 fl (7.4-10.4); Monocytes Absolute Auto 0.5 K/mm3 (0.1-0.6); Monocytes Percent Auto 7.4 % (2.6-8.5); Neutrophils Absolute Auto 4.9 K/mm3 (1.3-6.7); Neutrophils Percent Auto 66.4 % (45.5-73.1); Platelet Count Result 201 k/mm3 (150-375); Red Blood Count 3.64 M/mm3 (4.6-6.20); Red Cell Distribution Width 13.2 % (11.5-14.5); White Blood Count 7.3 K/mm3 (4.5-10.0)
[2019-09-05 22:12] LABS: Alanine Aminotransferase 36 U/L (4-50); Albumin Level 4.2 g/dL (3.5-5.1); Alkaline Phosphatase 116 U/L (38-126); Aspartate Amino Transferase 43 U/L (17-59); Bilirubin,Total 0.2 mg/dL (0.2-1.3); Blood Urea Nitrogen 22 mg/dL (9-20); Calcium 8.9 mg/dL (8.4-10.2); Carbon Dioxide 28 mmol/L (22-30); Chloride 101 mmol/L (98-107); Estimated CRCL calculation 49 ml/min; Estimated Glomerular Filt Rate 36; Glucose 356 mg/dL (75-110); Magnesium 1.7 mg/dL (1.6-2.3); Phosphorus 3.1 mg/dL (2.5-4.5); Sodium 139 mmol/L (137-145)
[2019-09-05 22:21] LABS: Beta-Hydroxybutyrate/Acetoacetate 0.08 mmol/L (0.02-0.27)
[2019-09-05 22:38] VITALS: BP 155/67; PULSE 110; RESP 14; TEMP 36.9; O2SAT 100
--- NOTE | 2019-09-05 23:37 | ED.GENADULT ---
HPI - General Adult General Chief complaint: Recheck/Abnormal Lab/Rx Stated complaint: high Blood sugar Time Seen by Provider: 09/05/19 23:25 Source: RN notes reviewed History of Present Illness HPI narrative: Patient presents emergency department from home for multiple complaints. Patient states that he has been having issues with his blood sugar for the past several days. He states he is on insulin which he has been taking and states he took his insulin twice this evening with continued elevated blood sugars. He states that his insulin is prescribed and adjusted by his PCP who is in [place]. He states that associated with this today has been having pain in his left upper abdomen that radiates around his left flank. Pain is described as sharp and stabbing in nature. He also reports he had 2 episodes of syncope today. Patient states that twice after he been siting on his couch and went to get up he had had syncopal episodes. Patient states he does not recall the episodes but had family present and states he was out for a brief amount of time. He denies any fevers or chills chest pain shortness of breath vomiting diarrhea or any other symptoms patient was in the emergency department 2 days ago for same issues of hyperglycemia Related Data Home Medications Medication Instructions Recorded Confirmed aspirin [Aspirin Low Dose] 81 mg PO DAILY 01/08/19 08/24/19 atorvastatin 40 mg PO HS 01/08/19 08/24/19 gabapentin 400 mg PO TID 01/08/19 08/24/19 insulin aspart U-100 [Novolog 1 sliding scale dose SUBCUT TIDWM 01/08/19 08/24/19 U-100 Insulin aspart] metoprolol tartrate 25 mg PO Q12H 01/08/19 08/24/19 Allergies Allergy/AdvReac Type Severity Reaction Status Date / Time No Known Allergies Allergy Unknown Verified 08/23/19 21:45 Review of Systems Review of Systems: Narrative: Gen.: Denies fevers or chills Eyes: Denies eye pain or visual change ENT: Denies congestion Respiratory: Denies shortness of breath or cough CV: Denies chest pain or palpitations, reports syncope GI: Reports abdominal pain and occasional nausea, denies vomiting or diarrhea Musculoskeletal: Denies back pain or muscle pain Neuro: Denies numbness, tingling, weakness or focal weakness Skin: Denies rash Except as documented, all other systems reviewed and negative PMF Past Medical History Medical History Arthritis CAD (coronary artery disease) Negative stress test November 2018 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 Chronic anemia Chronic kidney disease Stage III 0.9 and 1.4 over the last year CVA (cerebral vascular accident) CTA head and neck September 2018: Old infarct in the right occipital lobe and right caudate nucleus Diabetes mellitus Historically uncontrolled with hemoglobin A1c of 14 in May and current hemoglobin A1c of 10.2 (July 2018) Diabetic nephropathy Diabetic retinopathy Diastolic dysfunction Noted on prior echocardiogram but most recent echocardiogram demonstrating hyperdynamic left ventricle with EF greater than 70% with no mention of diastolic dysfunction Essential hypertension History of angina Hyperlipidemia Kidney stones NSTEMI (non-ST elevated myocardial infarction) With chronic troponin elevation Orthostatic hypotension Paroxysmal atrial fibrillation Not on anticoagulation due to high has bled score/high fall risk Peripheral neuropathy UTI (urinary tract infection) Surgical History Surgical History (Updated 08/24/19 @ 07:07 by Mary Smith DO) History of cholecystectomy Status post cataract extraction of both eyes with insertion of intraocular lens Social History Social History Social History: Care provider: Dr. Lobo Polk Code status: Full code per EMR He has 2 daughters who are relatively healthy. Smoking status: Never smoker Second hand tobacco smoke exposure: Yes Alcohol intake:
[2019-09-06] VITALS (17 sets, daily range): BP systolic 142–193; BP diastolic 62–110; PULSE 75–123; RESP 12–20; TEMP 35.8–37.1; O2SAT 96–100; BMI 34.2; BMI 34.4
[2019-09-06 00:07] LABS: INR 0.9; Prothrombin Time 11.7 Seconds (11.1-14.7)
[2019-09-06 00:07] LABS: Add Urine Microscopic? YES; Appearance Urine Clear (Clear); Bacteria Urine Trace /hpf; Bilirubin Urine Negative (Negative); Blood Urine Negative (Negative); Color Urine Straw (Yellow); Glucose Urine UA 3+ mg/dL (Negative); Ketones Urine Negative (Negative); Leukocyte Esterase Ur Negative LEU/UL (Negative); Nitrate Urine Negative (Negative); Protein Urine 1+ mg/dL (Negative); RBC Urine 0-2 /hpf (0-2); Specific Grav Ur 1.024 (1.001-1.035); Squamous Epithelial Cell Urine Rare /hpf (Few); Urobilinogen Urine Negative mg/dL (<2.0); WBC Urine 0-3 /hpf
[2019-09-06 00:08] LABS: Alanine Aminotransferase 36 U/L (4-50); Albumin Level 4.2 g/dL (3.5-5.1); Alkaline Phosphatase 115 U/L (38-126); Aspartate Amino Transferase 45 U/L (17-59); Bilirubin,Total 0.1 mg/dL (0.2-1.3); Lipase 61 U/L (23-300); Partial Thromboplastin Time 25.3 SECONDS (22.3-36.8)
[2019-09-06 00:22] LABS: Troponin I 0.036 ng/mL (0.000-0.034)
[2019-09-06] MEDS: SODIUM CHLORIDE 0.9% IV 1,000 ML 999 ML IV CONT (00:49)
[2019-09-06] MEDS: ASPIRIN 81 MG CHEWABLE TABLET 324 MG PO (00:54)
--- NOTE | 2019-09-06 01:56 | ECG_ITS ---
Measurements Intervals [place] Rate: 103 P: 33 [place]: 175 QRS: 81 QRSD: 109 T: 233 QT: 345 QTc: 452 Interpretive Statements SINUS TACHYCARDIA ST-T WAVE ABNORMALITY IN ANTEROLAT/INF LEADS- CONSIDER ISCHEMIA BASELINE ARTIFACT- V2 ABNORMAL ECG Electronically Signed On 09-06-2019 7:23:41 CDT by Colin Moreland D.O.
--- NOTE | 2019-09-06 02:32 | ADMGEN ---
This patient, Jorge Alberto Cortez, was admitted to IMU Room 200-01. Patient/family oriented to hospital policies and general routines including ID bracelet, bed and alarms, visiting hours, pain management, procedures, bathroom and other care routines, personal items, smoking policy, room service/diet, and visiting hours. Valuables list has been completed. Information on how to activate the Rapid Response Team has been discussed. Patient/Family are encouraged to report perceived risks to care and to ask questions if they do not understand what they are told or what they should do.
[2019-09-06 02:40] LABS: Troponin I 0.037 ng/mL (0.000-0.034)
[2019-09-06 02:48] LABS: Glucose Point of Care 299 (65-105)
[2019-09-06] MEDS: SODIUM CHLORIDE 0.9% IV 1,000 ML 80 ML IV CONT ×2 (02:59→14:11)
[2019-09-06 05:10] LABS: Troponin I 0.036 ng/mL (0.000-0.034)
[2019-09-06 08:34] LABS: Glucose Point of Care 275 (65-105)
[2019-09-06 08:44] LABS: Hemoglobin A1C 9.9 % (<5.7)
[2019-09-06] MEDS: INSULIN ASPART (*BKC) 100 UNITS/ML SUB-Q ×3 (09:06→17:33)
[2019-09-06] MEDS: INSULIN ASPART (*BKC) 100 UNITS/ML 10 UNITS SUB-Q ×3 (09:07→17:34)
[2019-09-06] MEDS: INSULIN GLARGINE (*BKC) 100 UNITS/ML 40 UNITS SUB-Q (09:09)
--- NOTE | 2019-09-06 09:41 | PM.IMHP ---
H&P: HPI History of Present Illness Chief complaint: Hyperglycemia,syncope,elevated troponin Narrative: Date of admission: 09/05/2019 Date of service: 09/06/2019 Jorge Alberto Cortez is a 64 year old male with a PMH significant for type 2 diabetes mellitus with retinopathy, neuropathy, and nephropathy, CKD, diastolic dysfunction, and orthostatic hypotension who presented to the emergency department on 09/05/19 with concerns of hyperglycemia. He had previously been evaluated in the ED on 09/03/19 for hyperglycemia >400. He was discharged home but his sugars remained elevated while at home ranging 350-400. He had been compliant with his insulin regimen consisting of 40 units lantus BID and 15 u novolog with meals plus sliding scale. He typically checks his blood sugars every 3-4 hours and states his average blood sugars run 130-150. With his hyperglycemia, he stated that he didn't feel well, but is not able to elaborate on any symptoms he experienced. He denies confusion, nausea, vomiting, abdominal pain, headache, dizziness, lightheadedness, or weakness. He does endorse increased thirst, increased urination, and dry mouth. He also tells me that he had a syncopal episode x2 yesterday afternoon. First at approximately 11:00 am he was getting up from the couch to walk to the bathroom. Upon standing, he lost consciousness and woke up on the ground. Second at approximately 2:00 pm he was standing up and again lost consciousness and awoke on the ground. He denied any precipitating symptoms for either episode. He has had multiple syncopal episodes in the past few months. Of note, he was not wearing his ZOHAIB hose during this episode. He states he typically tries to use caution upon standing but is unable to recall if he did so prior to his syncopal episode. He denies hitting his head. He denies any pain associated with falling. Review of Systems Review of Systems: Narrative: A 12 point review of systems was reviewed with pertinent positives and negatives as per HPI. He denies visual changes, headache, dysphagia, cough, shortness of breath, chest pain, myalgia, arthralgia, bleeding, bruising, hematuria, dysuria, stool changes, anxiety, or depression. 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 Diabetic nephropathy Diabetic retinopathy S/p retinal surgery Diastolic dysfunction Noted on prior echocardiogram but most recent echocardiogram demonstrating hyperdynamic left ventricle with EF greater than 70% with no mention of diastolic dysfunction Essential hypertension History of angina Hyperlipidemia Kidney stones NSTEMI (non-ST elevated myocardial infarction) With chronic troponin elevation Orthostatic hypotension Paroxysmal atrial fibrillation Not on anticoagulation due to high has bled score/high fall risk Peripheral neuropathy Surgical History Surgical History History of cholecystectomy Status post cataract extraction of both eyes with insertion of intraocular lens Family History Family History (Updated 09/06/19 @ 10:34 by Jeanette Baxter PA-C) Sibling Hypertension Father Polycystic kidney disease Colon cancer Diabetes mellitus Prostate carcinoma Mother Cerebrovascular accident CHF (congestive heart failure) Diabetes mellitus Acute myocardial infarction Social History Social History (Updated 09/06/19 @ 10:37 by Jeanette Baxter PA-C) Social History: Mr. Cortez lives alone in an apartment complex
[2019-09-06] MEDS: METOPROLOL TARTRATE 25 MG TABLET PO ×2 (10:01→21:05)
[2019-09-06] MEDS: GABAPENTIN 400 MG CAPSULE PO ×3 (10:01→17:14)
[2019-09-06] MEDS: ASPIRIN 81 MG ENTERIC TABLET PO (10:01)
[2019-09-06] MEDS: TAMSULOSIN HCL 0.4 MG CAPSULE PO (10:01)
[2019-09-06 11:53] LABS: Glucose Point of Care 228 (65-105)
--- NOTE | 2019-09-06 13:30 | PC.NURSE ---
Received patient from IMU via bed. Patient settled in room. No distress noted. No c/o pain.
--- NOTE | 2019-09-06 14:08 | PC.NURSE ---
This patient, Jorge Alberto Cortez, was transferred to [ ] on 09/06/19 at 1320 . Personal belongings sent with patient. Belongings list checked and signed with receiving [ ]. Report given to [Brook ]. Appropriate documentation sent with patient.
[2019-09-06 15:36] LABS: Glucose Point of Care 229 (65-105)
[2019-09-06] MEDS: INSULIN GLARGINE (*BKC) 100 UNITS/ML 45 UNITS SUB-Q (17:34)
[2019-09-06 17:40] LABS: Glucose Point of Care 211 (65-105)
[2019-09-06] MEDS: FAMOTIDINE 20 MG/2 ML VIAL IV PUSH (21:04)
[2019-09-06] MEDS: ATORVASTATIN 40 MG TABLET PO (21:04)
[2019-09-06 22:07] LABS: Glucose Point of Care 201 (65-105)
[2019-09-07] VITALS (9 sets, daily range): BP systolic 116–159; BP diastolic 59–90; PULSE 86–106; RESP 18–20; TEMP 36.3–36.8; O2SAT 93–99
[2019-09-07] MEDS: SODIUM CHLORIDE 0.9% IV 1,000 ML 80 ML IV CONT (01:47)
[2019-09-07 05:32] LABS: Basophils Absolute Auto 0.1 K/mm3 (0.0-0.1); Basophils Percent Auto 0.8 % (0.2-1.2); Eosinophils Absolute Auto 0.2 K/mm3 (0-0.3); Hematocrit 33.4 % (42.0-52.0); Hemoglobin 11.1 g/dL (14.0-18.0); Immature Granulocyte Absolute 0.03 K/mm3 (0.00-0.031); Immature Granulocyte Percent A 0.4 % (0-0.5); Lymphocytes Absolute Auto 2.01 K/mm3 (0.9-3.2); Lymphocytes Percent Auto 25.4 % (18.3-44.2); Mean Corpuscular HGB Conc 33.2 g/dl (32-36); Mean Corpuscular Hemoglobin 31.3 pg (26-34); Mean Corpuscular Volume 94.1 fl (80-100); Mean Platelet Volume 10.9 fl (7.4-10.4); Monocytes Absolute Auto 0.6 K/mm3 (0.1-0.6); Monocytes Percent Auto 7.5 % (2.6-8.5); Neutrophils Percent Auto 62.9 % (45.5-73.1); Platelet Count Result 199 k/mm3 (150-375); Red Blood Count 3.55 M/mm3 (4.6-6.20); Red Cell Distribution Width 13.3 % (11.5-14.5); White Blood Count 7.9 K/mm3 (4.5-10.0)
[2019-09-07 05:56] LABS: Blood Urea Nitrogen 17 mg/dL (9-20); Calcium 8.3 mg/dL (8.4-10.2); Carbon Dioxide 26 mmol/L (22-30); Chloride 105 mmol/L (98-107); Estimated CRCL calculation 86 ml/min; Estimated Glomerular Filt Rate > 60; Glucose 222 mg/dL (75-110); Sodium 139 mmol/L (137-145)
[2019-09-07 07:46] LABS: Glucose Point of Care 247 (65-105)
[2019-09-07] MEDS: FAMOTIDINE 20 MG/2 ML VIAL IV PUSH (09:22)
[2019-09-07] MEDS: GABAPENTIN 400 MG CAPSULE PO ×2 (09:23→13:26)
[2019-09-07] MEDS: TAMSULOSIN HCL 0.4 MG CAPSULE PO (09:23)
[2019-09-07] MEDS: ASPIRIN 81 MG ENTERIC TABLET PO (09:24)
[2019-09-07] MEDS: METOPROLOL TARTRATE 25 MG TABLET PO (09:24)
[2019-09-07] MEDS: INSULIN GLARGINE (*BKC) 100 UNITS/ML 45 UNITS SUB-Q (09:25)
[2019-09-07] MEDS: INSULIN ASPART (*BKC) 100 UNITS/ML SUB-Q ×2 (09:26→13:27)
[2019-09-07] MEDS: INSULIN ASPART (*BKC) 100 UNITS/ML 10 UNITS SUB-Q ×2 (09:27→13:28)
[2019-09-07 11:26] LABS: Glucose Point of Care 299 (65-105)
--- NOTE | 2019-09-07 13:44 | PM.DS ---
DS: Admitting Diagnosis Admitting Diagnosis Admitting Diagnosis: Hyperglycemia, unspecified DS: Discharge Diagnosis Discharge Diagnosis (1) Acute hyperglycemia: Code(s): R73.9 - Hyperglycemia, unspecified Status: Acute Assessment and Plan: Patient had acute hyperglycemia ranging 350-400 at home. Upon arrival to this facility, blood sugar was 360. He endorsed polydipsia and polyuria. He had no neurologic symptoms. There were no signs of ketoacidosis. Urine ketones were negative, beta hydroxybutyrate was within normal limits at 0.08, no acidosis, and electrolytes were stable. He reported compliance with his insulin regimen. Current A1c is 9.9. He was rehydrated with IV fluids. He was started on diabetic diet, monitored with regular accuchecks, and placed on moderate dose SSI. He was evaluated by clinical systems educator. His blood sugars improved to the 200s. He was encouraged to monitor and record his blood sugars at home for review by PCP. He appears to be on optimal therapy and no changes were made to his glycemic regimen. (2) Diabetes mellitus, with long-term current use of insulin: Qualifiers: Chronic kidney disease stage: stage 3 (moderate) Diabetes mellitus complication detail: with chronic kidney disease Diabetes mellitus complication status: with kidney complications Diabetes mellitus type: type 2 Qualified Code(s): E11.22 - Type 2 diabetes mellitus with diabetic chronic kidney disease; N18.3 - Chronic kidney disease, stage 3 (moderate); Z79.4 - prison (current) use of insulin Code(s): E11.9 - Type 2 diabetes mellitus without complications; Z79.4 - prison (current) use of insulin Status: Acute Assessment and Plan: Patient has a history of uncontrolled diabetes mellitus with several complications including retinopathy, neuropathy, and nephropathy. His A1c in May was >14. Current A1c is 9.9. Care as above. (3) Syncope: Code(s): R55 - Syncope and collapse Status: Acute Assessment and Plan: Patient reported syncopal episode x2 on 09/05/2019. Both occasions, he was rising from a seated position, and subsequently lost consciousness and woke up on the ground. He denied hitting his head with either episode. On exam he had no evidence of injury from fall and no tenderness upon palpation of head or neck. 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 He had an echo 7 months ago which demonstrated EF >70% and mild aortic valve sclerosis. He was monitored on telemetry which showed no significant arrhythmias or pauses. He had a decline in SBP >20 when transitioning from supine position to standing. I suspect orthostatic hypotension is the etiology for his syncope. He was not wearing his compression stockings during the episode. I discussed with him that ZOHAIB hose should be worn when ambulating and that he should use caution when rising from a seated position to prevent falls. I recommended that he monitor his BP at home and record for review by PCP. (4) Orthostatic hypotension: Code(s): I95.1 - Orthostatic hypotension Status: Acute Assessment and Plan: Patient has a history of orthostatic hypotension which may have been exacerbated by volume depletion, in light of his mild tachycardia. He was rehydrated with IV fluids. His orthostasis improved on repeat with addition of IV fluids and ZOHAIB hose, which he will continue to wear. (5) Elevated troponin: Code(s): R79.89 - Other specified abnormal findings of blood chemistry Status: Acute Assessment and Plan: Very minimal elevation with flat trend. Upon review of prior records, this is a chronic finding. He denied chest pain and ACS was not suspected. (6) Chronic kidney disease: Code(s): N18.9 - Chronic kidney disease, unspecified Status: Acute Assessment and Plan: Stage
[2019-09-10 08:56] LABS: Glucose Point of Care 101 (65-105)
== END 2019-09-07 14:54 | disposition home or self-care (01) ==
LOC: ANHED 09-06 00:57 → ANHIMU 09-06 01:32 → ANH2MED 09-06 17:56 → ANHIMU 09-10 09:56
PROVIDERS: Physician Assistant; Admitting Provider Internal Medicine; Emergency Provider Emergency Medicine; PCP Family Medicine; Visit Provider Internal Medicine
DX: E11.65 Type 2 diabetes mellitus with hyperglycemia (principal); R55 Syncope and collapse; E11.319 Type 2 diabetes mellitus with unspecified diabetic retinopathy without macular edema; E11.42 Type 2 diabetes mellitus with diabetic polyneuropathy; E11.22 Type 2 diabetes mellitus with diabetic chronic kidney disease; I95.1 Orthostatic hypotension; I12.9 Hypertensive chronic kidney disease with stage 1 through stage 4 chronic kidney disease, or unspecified chronic kidney disease; I25.10 Atherosclerotic heart disease of native coronary artery without angina pectoris; I25.2 Old myocardial infarction; R79.89 Other specified abnormal findings of blood chemistry; N18.3 Chronic kidney disease, stage 3 (moderate); Z86.73 Personal history of transient ischemic attack (TIA), and cerebral infarction without residual deficits; Z79.4 Long term (current) use of insulin
CPT/HCPCS: 36415; 70450; 71045; 74176; 80048; 80053; 80076; 81001; 82010; 82248; 82948; 83036; 83690; 83735; 84100; 84484; 85025; 85610; 85730; 93005; 96361; 96374; A9270; G0378; G0379; J1815; J7030

== ENCOUNTER 2019-09-29 17:09 | Emergency (ER) | payer BC, SELFPAY ==
--- NOTE | ~2019-09-29 | CT_ITS ---
EXAMINATION: CT abdomen pelvis wo con DATE: 09/29/2019 18:22 INDICATION: Left upper quadrant pain TECHNIQUE: Computed tomography (CT) of the abdomen and pelvis was performed without intravenous contr ast. The dose-length product was 1062.41 mGy-cm. Automated exposure control and iterative reconstruct ion technique were employed. COMPARISON: Comparison to multiple prior studies sequentially, with oldest reviewed study dated 07/18. FINDINGS: There are chronic interstitial changes of the lung bases. No significant pleural or pericar dial effusion. Heart size normal. Fatty infiltration of the liver. There are calcified granulomas of the spleen. Status post cholecystectomy. Nonobstructive bowel gas pattern. There is bladder wall thic kening, more focally anteriorly. Bladder wall mass cannot be excluded. Persistent periportal lymphade nopathy. No significant vascular abnormality. No lymphadenopathy. No abnormal pelvic masses or fluid collections. There is diffuse idiopathic skeletal hyperostosis (DISH) of the lower thoracic spine. IMPRESSION: 1. Abnormal bladder wall thickening, most prominent anteriorly. Cannot exclude underlying transitiona l cell carcinoma. Recommend urology consultation. 2: Mild chronic interstitial changes of the lung bases. 3: Chronic periportal lymphadenopathy, likely reactive. Reviewed, dictated and finalized at location [facility]. IMPRESSION: 1. Abnormal bladder wall thickening, most prominent anteriorly. Cannot exclude underlying transitional cell carcinoma. Recommend urology consultation. 2: Mild chronic interstitial changes of the lung bases. 3: Chronic periportal lymphadenopathy, likely reactive.
[2019-09-29 17:06] VITALS: BP 137/60; PULSE 93; RESP 16; TEMP 36.2; O2SAT 95
--- NOTE | 2019-09-29 17:15 | ECG_ITS ---
Measurements Intervals [place] Rate: 83 P: 31 CA: 168 QRS: 2 QRSD: 103 T: 204 QT: 373 QTc: 441 Interpretive Statements SINUS RHYTHM ST-T WAVE ABNORMALITY IN ANTEROLAT/INF LEADS- CONSIDER ISCHEMIA ABNORMAL ECG Electronically Signed On 09-30-2019 6:54:02 CDT by Colin Moreland D.O.
[2019-09-29 17:29] LABS: Basophils Absolute Auto 0.1 K/mm3 (0.0-0.1); Basophils Percent Auto 0.8 % (0.2-1.2); Eosinophils Absolute Auto 0.1 K/mm3 (0-0.3); Eosinophils Percent Auto 1.4 % (0-4.4); Hematocrit 36.8 % (42.0-52.0); Hemoglobin 12.5 g/dL (14.0-18.0); Immature Granulocyte Absolute 0.02 K/mm3 (0.00-0.031); Immature Granulocyte Percent A 0.3 % (0-0.5); Lymphocytes Absolute Auto 1.36 K/mm3 (0.9-3.2); Lymphocytes Percent Auto 17.5 % (18.3-44.2); Mean Corpuscular Hemoglobin 31.6 pg (26-34); Mean Corpuscular Volume 93.2 fl (80-100); Mean Platelet Volume 10.3 fl (7.4-10.4); Monocytes Absolute Auto 0.4 K/mm3 (0.1-0.6); Monocytes Percent Auto 5.7 % (2.6-8.5); Neutrophils Absolute Auto 5.8 K/mm3 (1.3-6.7); Neutrophils Percent Auto 74.3 % (45.5-73.1); Platelet Count Result 220 k/mm3 (150-375); Red Blood Count 3.95 M/mm3 (4.6-6.20); Red Cell Distribution Width 13.2 % (11.5-14.5); White Blood Count 7.8 K/mm3 (4.5-10.0)
[2019-09-29 17:41] LABS: Alanine Aminotransferase 35 U/L (4-50); Albumin Level 4.3 g/dL (3.5-5.1); Alkaline Phosphatase 112 U/L (38-126); Anion Gap 15.1 mmol/L (7-16); Aspartate Amino Transferase 57 U/L (17-59); Bilirubin,Total 0.5 mg/dL (0.2-1.3); Blood Urea Nitrogen 31 mg/dL (9-20); Carbon Dioxide 29 mmol/L (22-30); Chloride 97 mmol/L (98-107); Estimated CRCL calculation 39 ml/min; Estimated Glomerular Filt Rate 32; Glucose 229 mg/dL (75-110); Lipase 23 U/L (23-300); Potassium 4.1 mmol/L (3.4-5.0); Sodium 137 mmol/L (137-145)
--- NOTE | 2019-09-29 18:23 | PC.NURSE ---
pt to imaging via stretcher at this time.
[2019-09-29 18:46] VITALS: BP 154/65; PULSE 88; RESP 12; O2SAT 98
[2019-09-29 19:04] LABS: Add Urine Microscopic? YES; Appearance Urine Clear (Clear); Bacteria Urine Trace /hpf; Bilirubin Urine Negative (Negative); Blood Urine Negative (Negative); Color Urine Yellow (Yellow); Glucose Urine UA 3+ mg/dL (Negative); Hyaline Casts Urine 15-19 /lpf; Ketones Urine Negative (Negative); Leukocyte Esterase Ur Negative LEU/UL (Negative); Mucus Urine Rare /lpf; Nitrate Urine Negative (Negative); Protein Urine 2+ mg/dL (Negative); RBC Urine 0-2 /hpf (0-2); Specific Grav Ur 1.014 (1.001-1.035); Squamous Epithelial Cell Urine Few /hpf (Few); Urobilinogen Urine Negative mg/dL (<2.0); WBC Urine 0-3 /hpf
--- NOTE | 2019-09-29 19:34 | ED.ABDPAIN ---
HPI - Abdominal Pain General Chief Complaint: Abdominal Pain Stated Complaint: luq pain Time Seen by Provider: 09/29/19 17:29 Source: patient Mode of arrival: EMS Limitations: no limitations History of Present Illness HPI narrative: 64-year-old with a history of diabetes, CKD, hypertension, here with complaints of sudden onset of left-sided upper abdominal pain. Patient states that he woke up not feeling well however decided to go to [employer] while he was shopping at [employer] his pain intensified. He denies any chest pain. No history of nausea or vomiting. Pain was initially in the left upper quadrant area radiated to the lower abdomen. No history of blood in the stool or in the urine. MD elicited complaint: abdominal pain Pertinent past history: none Pain Consistency: constant Quality: aching Exacerbating factors: nothing Relieving factors: nothing Associated symptoms: nausea Related Data Home Medications Medication Instructions Recorded Confirmed aspirin [Aspirin Low Dose] 81 mg PO DAILY 01/08/19 09/06/19 atorvastatin 40 mg PO HS 01/08/19 09/06/19 gabapentin 400 mg PO TID 01/08/19 09/06/19 insulin aspart U-100 [Novolog 1 sliding scale dose SUBCUT TIDWM 01/08/19 09/06/19 U-100 Insulin aspart] metoprolol tartrate 25 mg PO Q12H 01/08/19 09/06/19 Allergies Allergy/AdvReac Type Severity Reaction Status Date / Time No Known Allergies Allergy Unverified 09/29/19 17:12 Review of Systems Review of Systems: All systems reviewed & are unremarkable except as noted in HPI and below Constitutional: Constitutional: Reports no additional constitutional complaints Eyes: Eyes: Reports no additional eye complaints ENT: Reports system reviewed and no additional complaints, except as documented Cardiovascular: Cardiovascular: Reports no additional cardiovascular complaints Respiratory: Respiratory: Reports no additional respiratory complaints Gastrointestinal: Gastrointestinal: Reports no additional gastrointestinal complaints Musculoskeletal: Musculoskeletal: Reports no additional musculoskeletal complaints Neurologic: Reports system reviewed and no additional complaints, except as documented Psychiatric: Psychiatric: Reports no additional psychiatric complaints PMFSH Past Medical History Medical History Arthritis CAD (coronary artery disease) Negative stress test November 2018 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 Diabetic nephropathy Diabetic retinopathy S/p retinal surgery Diastolic dysfunction Noted on prior echocardiogram but most recent echocardiogram demonstrating hyperdynamic left ventricle with EF greater than 70% with no mention of diastolic dysfunction Essential hypertension History of angina Hyperlipidemia Kidney stones NSTEMI (non-ST elevated myocardial infarction) With chronic troponin elevation Orthostatic hypotension Paroxysmal atrial fibrillation Not on anticoagulation due to high has bled score/high fall risk Peripheral neuropathy Surgical History Surgical History History of cholecystectomy Status post cataract extraction of both eyes with insertion of intraocular lens Family History Family History Sibling Hypertension Father Polycystic kidney disease Colon cancer Diabetes mellitus Prostate carcinoma Mother Cerebrovascular accident CHF (congestive heart failure) Diabetes mellitus Acute myocardial infarction Social History Social History Social Histo
[2019-09-29 20:13] VITALS: BP 149/76; PULSE 97; RESP 18; TEMP 37; O2SAT 96
== END 2019-09-29 20:15 | disposition home or self-care (01) ==
PROVIDERS: Emergency Provider Family Medicine; PCP Family Medicine
DX: R10.12 Left upper quadrant pain (principal); I12.9 Hypertensive chronic kidney disease with stage 1 through stage 4 chronic kidney disease, or unspecified chronic kidney disease; E11.22 Type 2 diabetes mellitus with diabetic chronic kidney disease; N18.3 Chronic kidney disease, stage 3 (moderate); E11.319 Type 2 diabetes mellitus with unspecified diabetic retinopathy without macular edema; E11.21 Type 2 diabetes mellitus with diabetic nephropathy; Z79.4 Long term (current) use of insulin; I25.10 Atherosclerotic heart disease of native coronary artery without angina pectoris; Z86.73 Personal history of transient ischemic attack (TIA), and cerebral infarction without residual deficits; E78.5 Hyperlipidemia, unspecified; Z87.442 Personal history of urinary calculi; I25.2 Old myocardial infarction; I48.0 Paroxysmal atrial fibrillation; Z98.42 Cataract extraction status, left eye; Z98.41 Cataract extraction status, right eye; Z96.1 Presence of intraocular lens; R94.31 Abnormal electrocardiogram [ECG] [EKG]
CPT/HCPCS: 36415; 74176; 80053; 81001; 83690; 85025; 93005; 99284

== ENCOUNTER 2019-10-30 16:55 | Observation (INO) | payer BC, SELFPAY ==
[2019-10-30] VITALS (14 sets, daily range): BP systolic 97–152; BP diastolic 51–94; PULSE 74–113; RESP 12–18; TEMP 36.7; O2SAT 95–98
--- NOTE | ~2019-10-30 | CT_ITS ---
EXAMINATION: CT brain wo con DATE: 10/30/2019 18:26 INDICATION: Syncopal episode. Paresis. TECHNIQUE: Computed tomography (CT) of the head was performed without intravenous contrast. The mA wa s adjusted according to patient size. Iterative reconstruction technique was employed. Exam dose: 68 1.00 mGy-cm total exam DLP. COMPARISON: 09/05/2019 CT brain FINDINGS: Complete agenesis of the corpus callosum is again noted. No intracranial mass lesion or hemorrhage or cerebrovascular accident is evident. No midline shifts o r mass effects. Bilateral carotid siphon internal carotid artery calcifications. No subdural or epidural hematoma. No fracture or bone destruction of the cranial vault. The mastoid air cells are normally developed and aerated. Included paranasal sinuses are well-develop ed and aerated, with an isolated opacified left ethmoid air cell. IMPRESSION: Complete agenesis of the corpus callosum No acute intracranial finding Reviewed, dictated and finalized at [facility]. Reviewed, dictated and finalized at location [facility].
--- NOTE | ~2019-10-30 | XR_ITS ---
XR chest 2V DATE: 10/30/2019 19:10 INDICATION: Syncopal episode. History of hypertension and cerebrovascular accident TECHNIQUE: PA and lateral views COMPARISON: 09/06/2019 AP chest 11/29/2018 CT pulmonary scan FINDINGS: spanish professor of the left anterior chest wall. Normal heart size. No hilar or mediastinal enlargement is evident. No pulmonary infiltrate or consolidation, pleural effusion or pulmonary vascular congestion or pneumo thorax is detected. Diffuse idiopathic skeletal hyperostosis of the thoracic spine. IMPRESSION: No active cardiopulmonary disease Reviewed, dictated and finalized at location A.
--- NOTE | ~2019-10-30 | CT_ITS ---
CT thoracic lumbar wo con DATE: 10/30/2019 18:27 INDICATION: Back pain. Syncopal episode. TECHNIQUE: Axial images and sagittal and coronal reconstructions of the thoracic spine Exam dose: 2440.36 mGy-cm total exam DLP. COMPARISON: None FINDINGS: Diffuse idiopathic skeletal hyperostosis of the mid and lower thoracic spine. No fracture or bone destruction is evident. IMPRESSION: Diffuse idiopathic skeletal hyperostosis of the mid and lower thoracic spine Reviewed, dictated and finalized at [facility]. Reviewed, dictated and finalized at location A. IMPRESSION: Diffuse idiopathic skeletal hyperostosis of the mid and lower thora cic spine
--- NOTE | ~2019-10-30 | CT_ITS ---
EXAMINATION: CT cervical spine wo con DATE: 10/30/2019 18:26 INDICATION: Syncopal episode. Paresis. TECHNIQUE: Computed tomography (CT) of the cervical spine was performed without intravenous contrast. Automated exposure control and iterative reconstruction technique were employed. Exam dose: 570.80 mGy-cm total exam DLP. COMPARISON: None FINDINGS: C1 and C2 are normally aligned and the odontoid process is intact. No fracture or dislocation or locked facet or prevertebral soft tissue swelling is evident. Moderately severe degenerative disc disease is noted C3-4, C4-5, C5-C6 and particularly severe degene rative disc disease at C6-7 and C7-T1. Prominent uncovertebral joint spurring is noted throughout the mid and lower cervical spine. IMPRESSION: Extensive degenerative changes; no fracture or dislocation or locked facet Reviewed, dictated and finalized at [facility]. Reviewed, dictated and finalized at location [facility]. IMPRESSION: Extensive degenerative changes; no fracture or dislocation or lock ed facet
--- NOTE | ~2019-10-30 | US_ITS ---
EXAMINATION: US carotid duplex BI DATE: 10/31/2019 15:13 INDICATION: Syncope. TECHNIQUE: Grayscale, color Doppler, and pulsed Doppler images of the cervical carotid arteries were obtained. The degree of vessel stenosis is placed in one of the following categories: normal, <50%, 5 0-69%, >=70% but less than near-occlusion, near-occlusion, or total occlusion. Note that percent sten osis relative to normal distal artery lumen diameter is indirectly measured from velocity measurement s as described by Jam, et al. Radiology 2003; 229:340-346. COMPARISON: Ultrasound 10/15/2018, CTA 10/15/2018 FINDINGS: RIGHT: The right common carotid artery (CCA) peak systolic velocity (PSV) is 69 cm/s. The right internal car otid artery (ICA) PSV is 142 cm/s. The right ICA end-diastolic velocity (EDV) is 29 cm/s. The right I CA/CCA PSV ratio is 2.1. Grayscale and color Doppler images yield an estimate of >=50% diameter reduc tion from plaque in the ICA. There is antegrade flow in the right vertebral artery. LEFT: The left CCA PSV is 71 cm/s. The left ICA PSV is 76 cm/s. The left ICA EDV is 26 cm/s. The left ICA/C CA PSV ratio is 1.1. Grayscale and color Doppler images yield an estimate of <50% diameter reduction from plaque in the ICA. There is antegrade flow in the left vertebral artery. IMPRESSION: 1. 50-69% stenosis in the right internal carotid artery. 2. <50% stenosis in the left internal carotid artery. Reviewed, dictated and finalized at location A.
--- NOTE | 2019-10-30 16:58 | ECG_ITS ---
Measurements Intervals [place] Rate: 90 P: 45 [place]: 172 QRS: 84 QRSD: 106 T: 240 QT: 350 QTc: 430 Interpretive Statements SINUS RHYTHM ST-T WAVE ABNORMALITY IN ANTEROLAT/INF LEADS- CONSIDER ISCHEMIA BASELINE ARTIFACT- I, AVR, AVL ABNORMAL ECG Electronically Signed On 10-31-2019 8:09:06 CDT by Colin Moreland D.O.
[2019-10-30 17:42] LABS: Basophils Absolute Auto 0.1 K/mm3 (0.0-0.1); Basophils Percent Auto 0.8 % (0.2-1.2); Eosinophils Absolute Auto 0.1 K/mm3 (0-0.3); Eosinophils Percent Auto 1.4 % (0-4.4); Hematocrit 36.9 % (42.0-52.0); Hemoglobin 12.7 g/dL (14.0-18.0); Immature Granulocyte Absolute 0.02 K/mm3 (0.00-0.031); Immature Granulocyte Percent A 0.3 % (0-0.5); Lymphocytes Absolute Auto 1.69 K/mm3 (0.9-3.2); Mean Corpuscular HGB Conc 34.4 g/dl (32-36); Mean Corpuscular Hemoglobin 31.2 pg (26-34); Mean Corpuscular Volume 90.7 fl (80-100); Mean Platelet Volume 10.3 fl (7.4-10.4); Monocytes Absolute Auto 0.5 K/mm3 (0.1-0.6); Monocytes Percent Auto 6.7 % (2.6-8.5); Neutrophils Percent Auto 67.8 % (45.5-73.1); Platelet Count Result 196 k/mm3 (150-375); Red Blood Count 4.07 M/mm3 (4.6-6.20); Red Cell Distribution Width 12.7 % (11.5-14.5); White Blood Count 7.4 K/mm3 (4.5-10.0)
[2019-10-30 17:54] LABS: D Dimer 0.38 ug/mL (<0.48)
[2019-10-30 17:58] LABS: Prothrombin Time 12.5 Seconds (11.1-14.7)
[2019-10-30 17:59] LABS: Partial Thromboplastin Time 23.9 SECONDS (22.3-36.8)
[2019-10-30 18:08] LABS: Glucose Point of Care 163 (65-105)
[2019-10-30 18:16] LABS: Alanine Aminotransferase 27 U/L (4-50); Albumin Level 4.2 g/dL (3.5-5.1); Alkaline Phosphatase 101 U/L (38-126); Anion Gap 12 mmol/L (8-16); Aspartate Amino Transferase 37 U/L (17-59); Bilirubin,Total 0.4 mg/dL (0.2-1.3); Blood Urea Nitrogen 23 mg/dL (9-20); Calcium 9.1 mg/dL (8.4-10.2); Carbon Dioxide 28 mmol/L (22-30); Chloride 97 mmol/L (98-107); Estimated CRCL calculation 54 ml/min; Estimated Glomerular Filt Rate 41; Glucose 173 mg/dL (75-110); Potassium 3.9 mmol/L (3.4-5.0); Sodium 137 mmol/L (137-145)
[2019-10-30 18:26] LABS: Troponin I 0.028 ng/mL (0.000-0.034)
--- NOTE | 2019-10-30 18:33 | ED.WEAKNESS ---
HPI - Weakness General Chief complaint: Weakness Stated complaint: WEAKNESS,NECK AND SHOULDER PAIN Time Seen by Provider: 10/30/19 17:13 Source: patient Mode of arrival: EMS Limitations: no limitations History of Present Illness HPI Narrative: This is a 64 year old male that presents to the ER for a syncopal episode today. Reports he was walking down the [place] and started to feel lightheaded and passed out. He does not think he hit his head. Reports this has happened to him in the past. Reports he has not been feeling well today. Reports he started to have some bilateral neck and shoulder pain about 2 hours ago. Denies fever, chest pain, shortness of breath, palpitations, abdominal pain, vomiting, or numbness. Related Data Home Medications Medication Instructions Recorded Confirmed aspirin [Aspirin Low Dose] 81 mg PO DAILY 01/08/19 09/06/19 atorvastatin 40 mg PO HS 01/08/19 09/06/19 gabapentin 400 mg PO TID 01/08/19 09/06/19 insulin aspart U-100 [Novolog 1 sliding scale dose SUBCUT TIDWM 01/08/19 09/06/19 U-100 Insulin aspart] metoprolol tartrate 25 mg PO Q12H 01/08/19 09/06/19 Allergies Allergy/AdvReac Type Severity Reaction Status Date / Time No Known Allergies Allergy Unverified 09/29/19 17:12 Review of Systems Review of Systems: Narrative: CONSTITUTIONAL: Denies feve CARDIOVASCULAR: Denies chest pain, palpitations RESPIRATORY: Denies cough or dyspnea. GASTROINTESTINAL: Denies abdominal pain, nausea, vomiting GENITOURINARY: Denies dysuria NEUROLOGIC: Denies headache, numbness All systems reviewed & are unremarkable except as noted in HPI and below PMFSH Social History Social History Social History: Mr. Cortez lives alone in an apartment complex for seniors. He does not drive due to his poor vision, however he is able to perform his ADLs independently. He is retired from the [employer]. He designates his sister, Yaz as his surrogate decision maker and he wishes to be a full code. He has 2 daughters who are relatively healthy. Smoking status: Never smoker Second hand tobacco smoke exposure: Yes Alcohol intake: never Substance use: never Additional living arrangements comments: The patient is currently living alone. He had been placed in a halfway for 3 years previously until he had corrective surgery for vision loss associated with his diabetes. He was discharged from halfway December 2017. 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 He is now on disability following injuries associated with his diabetes. Gender identity (if verbalized by the patient): Male Spiritual care concerns: No Agree to blood products: Yes Exam Narrative: Exam Narrative: GENERAL: Well-appearing, well-nourished, and in no acute distress. HEAD: Normocephalic, atraumatic. EYES: PERRLA and EOMI. ENT: Nares clear, no rhinorrhea or epistaxis. Mucous membranes moist. Oropharynx without tonsillar hypertrophy exudate or other lesions. Bilateral TMs pearly frias non-bulging NECK: Supple. No adenopathy or masses. No midline cervical spine tenderness CHEST: Clear to auscultation. No respiratory distress. No wheezes rales or rhonchi HEART: Regular rate and rhythm. No murmur heard. Normal peripheral pulses. ABDOMEN: Soft, nontender, nondistended, normal active bowel sounds. BACK: Tender to palpation of midline thoracic and lumbar spine EXTREMITIES: Normal range of motion. No edema. Strength equal in bilateral upper and lower extremities (5/5) SKIN: Warm, dry, no rash. NEURO: No focal deficits. Alert and oriented x3. Cranial nerves II through XII grossly intact PSYCH: Normal mood and affect Course Consultations Consultation #1: Spoke with hospitalist about patient and work-up who accepts admission Date: 10/30/19 Time: 22:14 Vital Signs Vital signs: Vital Signs Temperature 98.1 F
[2019-10-30] MEDS: SODIUM CHLORIDE 0.9% IV 1,000 ML 999 ML IV CONT ×2 (18:54→19:50)
[2019-10-30 19:12] LABS: Add Urine Microscopic? YES; Appearance Urine Clear (Clear); Bacteria Urine Trace /hpf; Bilirubin Urine Negative (Negative); Blood Urine Negative (Negative); Color Urine Yellow (Yellow); Glucose Urine UA 3+ mg/dL (Negative); Ketones Urine Trace mg/dL (Negative); Leukocyte Esterase Ur Negative LEU/UL (Negative); Mucus Urine Rare /lpf; Nitrate Urine Negative (Negative); Protein Urine 1+ mg/dL (Negative); RBC Urine 0-2 /hpf (0-2); Specific Grav Ur 1.018 (1.001-1.035); Squamous Epithelial Cell Urine Occasional /hpf (Few); Urobilinogen Urine Negative mg/dL (<2.0); WBC Urine 0-3 /hpf
--- NOTE | 2019-10-30 19:21 | PC.NURSE ---
Report to KEELY Serna, to continue care.
[2019-10-31] VITALS (15 sets, daily range): BP systolic 111–174; BP diastolic 52–80; PULSE 84–106; RESP 12–20; TEMP 36.5–37.1; O2SAT 90–98; BMI 31.2
--- NOTE | 2019-10-31 00:04 | ADMGEN ---
This patient, Jorge Alberto Cortez, was admitted to 2 Medical Room 244-. Patient/family oriented to hospital policies and general routines including ID bracelet, bed and alarms, visiting hours, pain management, procedures, bathroom and other care routines, personal items, smoking policy, room service/diet, and visiting hours. Valuables list has been completed. Information on how to activate the Rapid Response Team has been discussed. Patient/Family are encouraged to report perceived risks to care and to ask questions if they do not understand what they are told or what they should do.
--- NOTE | 2019-10-31 01:05 | PM.IMHP ---
H&P: HPI History of Present Illness Date/Time: 10/31/19 01:05 Chief complaint: Orthostatic hypotension, ANDREW Narrative: This is a pleasant 64-year-old diabetic male well known to me from multiple hospitalizations secondary to chest pain and synopce in the past who returned to the hospital today after suffering another syncopal event. Today the patient walked down the [place] and went to his mailbox, he describes starting to walk back when he suddenly started to feel lightheaded and then passed out. He denied any shortness of breath or chest pain before passing out. He does not know if he hit his head but he denies any headache at this time. Tonight he denies any recent fevers, chills, shortness of breath, cough, palpitations, chest pain, abdominal pain, dysuria, hematuria, rectal bleeding, nausea, vomiting, diarrhea or LE swelling. He states he has been taking his medications as prescribed. Routine labs were obtained in the ER tonight and are unremarkable. He was found to be orthostatic in the ER. No other complaints. 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 Diabetic nephropathy Diabetic retinopathy S/p retinal surgery Diastolic dysfunction Noted on prior echocardiogram but most recent echocardiogram demonstrating hyperdynamic left ventricle with EF greater than 70% with no mention of diastolic dysfunction Essential hypertension History of angina Hyperlipidemia Kidney stones NSTEMI (non-ST elevated myocardial infarction) With chronic troponin elevation Orthostatic hypotension Paroxysmal atrial fibrillation Not on anticoagulation due to high has bled score/high fall risk Peripheral neuropathy Surgical History Surgical History History of cholecystectomy Status post cataract extraction of both eyes with insertion of intraocular lens Family History Family History Sibling Hypertension Father Polycystic kidney disease Colon cancer Diabetes mellitus Prostate carcinoma Mother Cerebrovascular accident CHF (congestive heart failure) Diabetes mellitus Acute myocardial infarction Social History Social History Social History: Mr. Cortez lives alone in an apartment complex for seniors. He does not drive due to his poor vision, however he is able to perform his ADLs independently. He is retired from the [employer]. He designates his sister, Yaz as his surrogate decision maker and he wishes to be a full code. He has 2 daughters who are relatively healthy. Smoking status: Never smoker Second hand tobacco smoke exposure: Yes Alcohol intake: never Substance use: never Additional living arrangements comments: The patient is currently living alone. He had been placed in a retirement for 3 years previously until he had corrective surgery for vision loss associated with his diabetes. He was discharged from retirement December 2017. Additional occupation/education comments: He is retired from a local [employer] where he worked for 35 years. He is now on disability following injuries associated with his diabetes. Gender identity (if verbalized by the patient): Male Spiritual care concerns: No Agree to blood products: Yes Meds Home Medica
--- NOTE | 2019-10-31 01:09 | ECHO_ITS ---
Patient Info Name: Jorge Alberto Cortez Age: 64 years : 1955 Gender: Male Ht: 75 in Wt: 249 lbs BSA: 2.47 m2 HR: 93 bpm BP: 165 / 71 mmHg Heart Rhythm: Sinus Rhythm Technical Quality: Good Exam Date: 10/31/2019 10:33 AM Exam Location: [facility] Room: 244 Patient Status: Inpatient Admit Date: 10/30/2019 Staff Ordering Physician: Lobo Mendez MD Plaster Molder: Sofia Sims RDCS Attending Provider: Lobo Mendez MD Referring Physician: Vanessa ALMEIDA; Exam Type: CA echo doppler color flow Study Info Indications - syncope Complete two-dimensional, color flow and Doppler transthoracic echocardiogram is performed. Summary 1. Complete two-dimensional, color flow and Doppler transthoracic echocardiogram is performed. 2. Left ventricular chamber dimension is normal. 3. Left ventricular systolic function is hyperdynamic, estimated at >70%. 4. There is moderately increased left ventricular wall thickness. 5. The left ventricular diastolic function is grade I diastolic dysfunction. 6. There is moderate aortic valve sclerosis. 7. There is mild aortic valve regurgitation. 8. There is mild mitral valve regurgitation. 9. There is mild tricuspid valve regurgitation. 10. Mild pulmonary hypertension, estimated pulmonary arterial systolic pressure is 38 mmHg. 11. The pericardium appears increased echogenicity of the pericardium. 12. There is small pericardial effusion. Left Ventricle Left ventricular chamber dimension is normal. Left ventricular systolic function is hyperdynamic, estimated at >70%. There is moderately increased left ventricular wall thickness. The left ventricular diastolic function is grade I diastolic dysfunction. Right Ventricle Right ventricular chamber dimension is normal. Right ventricular systolic function is normal. Left Atria Left atrial chamber dimension is normal. Right Atria Right atrial chamber dimension is normal. Atrial Septum Intact interatrial septum visualized by color flow imaging. Aortic Valve The aortic valve is trileaflet. There is moderate aortic valve sclerosis. There is no aortic valve stenosis. There is mild aortic valve regurgitation. Pulmonic Valve The pulmonic valve is normal. There is no pulmonic valve stenosis. There is trace pulmonic regurgitation. Mitral Valve The mitral valve has normal leaflets. There is no mitral valve stenosis. There is mild mitral valve regurgitation. Tricuspid Valve The tricuspid valve leaflets are normal. There is no significant tricuspid valve stenosis. There is mild tricuspid valve regurgitation. Mild pulmonary hypertension, estimated pulmonary arterial systolic pressure is 38 mmHg. Pericardium/Pleural The pericardium appears increased echogenicity of the pericardium. There is small pericardial effusion. Inferior Vena Cava Normal inferior vena cava with >50% collapse upon inspiration consistent with elevated right atrial pressure, 10 mmHg. Aorta The aortic root size at the sinus of Valsalva is normal. Left Ventricular Outflow Tract Name Value Normal LVOT 2D LVOT Diameter 2.1 cm LVOT Doppler
[2019-10-31 01:28] LABS: Glucose Point of Care 182 (65-105)
[2019-10-31] MEDS: SODIUM CHLORIDE 0.9% IV 1,000 ML 100 ML IV CONT ×3 (01:36→20:50)
[2019-10-31 05:52] LABS: Basophils Percent Auto 0.6 % (0.2-1.2); Eosinophils Absolute Auto 0.1 K/mm3 (0-0.3); Eosinophils Percent Auto 1.7 % (0-4.4); Hematocrit 33.6 % (42.0-52.0); Hemoglobin 11.5 g/dL (14.0-18.0); Immature Granulocyte Absolute 0.02 K/mm3 (0.00-0.031); Immature Granulocyte Percent A 0.3 % (0-0.5); Lymphocytes Absolute Auto 2.04 K/mm3 (0.9-3.2); Lymphocytes Percent Auto 28.3 % (18.3-44.2); Mean Corpuscular HGB Conc 34.2 g/dl (32-36); Mean Corpuscular Hemoglobin 31.4 pg (26-34); Mean Corpuscular Volume 91.8 fl (80-100); Mean Platelet Volume 10.9 fl (7.4-10.4); Monocytes Absolute Auto 0.5 K/mm3 (0.1-0.6); Monocytes Percent Auto 7.2 % (2.6-8.5); Neutrophils Absolute Auto 4.5 K/mm3 (1.3-6.7); Neutrophils Percent Auto 61.9 % (45.5-73.1); Platelet Count Result 194 k/mm3 (150-375); Red Blood Count 3.66 M/mm3 (4.6-6.20); White Blood Count 7.2 K/mm3 (4.5-10.0)
[2019-10-31 06:08] LABS: Anion Gap 6 mmol/L (8-16); Blood Urea Nitrogen 25 mg/dL (9-20); Calcium 8.1 mg/dL (8.4-10.2); Carbon Dioxide 30 mmol/L (22-30); Chloride 102 mmol/L (98-107); Estimated CRCL calculation 65 ml/min; Estimated Glomerular Filt Rate 51; Glucose 260 mg/dL (75-110); Magnesium 1.6 mg/dL (1.6-2.3); Potassium 3.7 mmol/L (3.4-5.0); Sodium 138 mmol/L (137-145)
[2019-10-31 08:22] LABS: Glucose Point of Care 253 (65-105)
[2019-10-31] MEDS: INSULIN ASPART (*BKC) 100 UNITS/ML 20 UNITS SUB-Q ×3 (08:34→16:59)
[2019-10-31] MEDS: ASPIRIN 81 MG ENTERIC TABLET PO (08:34)
[2019-10-31] MEDS: INSULIN ASPART (*BKC) 100 UNITS/ML SUB-Q (08:35)
[2019-10-31] MEDS: INSULIN GLARGINE (*BKC) 100 UNITS/ML 50 UNITS SUB-Q ×2 (08:36→20:48)
--- NOTE | 2019-10-31 11:13 | PM.IMPN ---
Progress Note: A&P Assessment and Plan (1) Syncope and collapse: Code(s): R55 - Syncope and collapse Status: Acute Assessment and Plan: Continue iv fluid hydration. Continue monitor BPS orthostatic twice daily. Hopeful dc tiffany AM. (2) Orthostatic hypotension: Code(s): I95.1 - Orthostatic hypotension Status: Acute Assessment and Plan: Pt is still tilting hopeful discharge tomorrow. (3) Chronic kidney disease: Qualifiers: Chronic kidney disease stage: stage 3 (moderate) Qualified Code(s): N18.3 - Chronic kidney disease, stage 3 (moderate) Code(s): N18.9 - Chronic kidney disease, unspecified Status: Chronic Assessment and Plan: Creat is improving. it is 1.4 today. (4) Diabetes mellitus, with long-term current use of insulin: Qualifiers: Diabetes mellitus type: type 2 Diabetes mellitus complication status: with kidney complications Diabetes mellitus complication detail: with chronic kidney disease Chronic kidney disease stage: stage 3 (moderate) Qualified Code(s): E11.22 - Type 2 diabetes mellitus with diabetic chronic kidney disease; N18.3 - Chronic kidney disease, stage 3 (moderate); Z79.4 - intermediate (current) use of insulin Code(s): E11.9 - Type 2 diabetes mellitus without complications; Z79.4 - terminal superintendent (current) use of insulin Status: Chronic Assessment and Plan: Accuchecks, SSI and continue home lantus. Sugars are around 260 today (5) Hypertension: Qualifiers: Hypertension type: essential hypertension Qualified Code(s): I10 - Essential (primary) hypertension Code(s): I10 - Essential (primary) hypertension Status: Chronic Assessment and Plan: Holding pts BP medications today, as Bp are orthistatic today. Subjective Date/time seen: 10/31/19 11:13 Interval history: 64-year-old diabetic male well known to me from multiple hospitalizations secondary to chest pain and syncope in the past who returned to the hospital today after suffering another syncopal event. Pt denies any chest pain, SOB. Denies any new weakness or headaches or speech or swallow problems. DEnies any vomiting diarrhea or abdominal pains. BP today still shows evidence of tilting. Pt feels tired and weak, sudden passing outside his home. Review of Systems Constitutional: Constitutional: Denies body ache(s), Denies chills, Reports fatigue, Reports lethargy, Denies night sweats and Reports weakness Cardiovascular: Cardiovascular: Denies no additional cardiovascular complaints Respiratory: Respiratory: Denies no additional respiratory complaints Gastrointestinal: Gastrointestinal: Denies no additional gastrointestinal complaints Genitourinary: Genitourinary: Denies no additional male genitourinary complaints Musculoskeletal: Musculoskeletal: Denies no additional musculoskeletal complaints Exam Const: General: tired appearing Nutritional Appearance: obese Orientation/consciousness: patient oriented x3 Resp: Effort & Inspection: normal respiratory effort Auscultation: clear to auscultation bilaterally Cardio: Rate: regular rate Rhythm: regular rhythm Heart sounds: no murmurs GI: Inspection: normal to inspection Auscultation: normal bowel sounds Skin: General skin exam: normal color and no rashes or lesions noted Neuro: General: patient oriented x3 Cranial nerves: Yes CN's II-XII intact bilaterally and Yes Equal, round and reactive pupils present Speech: normal speech Motor exam (neuro): 5/5 motor strength present throughout Sensory Exam: normal sensation Extrem: General: normal to inspection and no edema Psych: Mental Status: mental status grossly normal Affect: normal affect Objective Data Vital Signs Vital Signs: Vital Signs - 24 hr 10/30/19 16:54 10/30/19 17:00 10/30/19 17:03 Temperature 36.7 C Pulse Rate 100 96 98 Respiratory Rate 18 14 Blood Pressure 104/72 123/63 Pulse O
[2019-10-31 11:42] LABS: Glucose Point of Care 172 (65-105)
[2019-10-31 16:33] LABS: Glucose Point of Care 149 (65-105)
[2019-10-31] MEDS: ATORVASTATIN 40 MG TABLET PO (20:43)
[2019-10-31 20:51] LABS: Glucose Point of Care 185 (65-105)
[2019-11-01] VITALS: PULSE 94
[2019-11-01 04:00] VITALS: PULSE 86
[2019-11-01 05:56] LABS: Anion Gap 7 mmol/L (8-16); Blood Urea Nitrogen 14 mg/dL (9-20); Calcium 8.2 mg/dL (8.4-10.2); Carbon Dioxide 29 mmol/L (22-30); Chloride 104 mmol/L (98-107); Estimated CRCL calculation 90 ml/min; Estimated Glomerular Filt Rate > 60; Glucose 192 mg/dL (75-110); Potassium 3.6 mmol/L (3.4-5.0); Sodium 140 mmol/L (137-145)
[2019-11-01 06:00] VITALS: BP 165/70; PULSE 92; RESP 16; TEMP 37.1; O2SAT 99
[2019-11-01] MEDS: SODIUM CHLORIDE 0.9% IV 1,000 ML 100 ML IV CONT (07:13)
[2019-11-01 07:49] LABS: Glucose Point of Care 211 (65-105)
[2019-11-01 08:00] VITALS: BP 186/68; PULSE 91; PULSE 96
[2019-11-01 08:05] VITALS: BP 148/71; PULSE 101
[2019-11-01 08:10] VITALS: BP 126/54; PULSE 113
[2019-11-01] MEDS: ASPIRIN 81 MG ENTERIC TABLET PO (09:54)
[2019-11-01 09:55] LABS: Glucose Point of Care 204 (65-105)
[2019-11-01] MEDS: INSULIN GLARGINE (*BKC) 100 UNITS/ML 50 UNITS SUB-Q (10:37)
--- NOTE | 2019-11-01 10:56 | PM.DS ---
DS: Admitting Diagnosis Admitting Diagnosis Admitting Diagnosis: Orthostatic hypotension, ANDREW DS: Discharge Diagnosis Discharge Diagnosis (1) Syncope and collapse: Code(s): R55 - Syncope and collapse Status: Resolved Assessment and Plan: Pt feels better after, iv fluid hydration. (2) Orthostatic hypotension: Code(s): I95.1 - Orthostatic hypotension Status: Resolved Assessment and Plan: (3) Chronic kidney disease: Qualifiers: Chronic kidney disease stage: stage 3 (moderate) Qualified Code(s): N18.3 - Chronic kidney disease, stage 3 (moderate) Code(s): N18.9 - Chronic kidney disease, unspecified Status: Chronic Assessment and Plan: Creat is improving. it is 1 today. 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 Sugars are around 190 today (5) Hypertension: Qualifiers: Hypertension type: essential hypertension Qualified Code(s): I10 - Essential (primary) hypertension Code(s): I10 - Essential (primary) hypertension Status: Chronic Assessment and Plan: Restart pts metoprolol on discharge, metoprolol was held yesterday so his heart rate is slightly up today. DS: Summary Time Spent with Patient Time attestation: Total time spent providing and/or coordinating discharge services:40 minutes on day of discharge Exam Const: Nutritional Appearance: obese Orientation/consciousness: patient oriented x3 HENMT: Head: normal to inspection General nose exam: Normal external nose present Mouth: Yes Normal oral and palatal mucosa present Eyes: Pupils: Equal, round and reactive pupils present Resp: Effort & Inspection: normal respiratory effort Auscultation: clear to auscultation bilaterally Cardio: Rate: regular rate Rhythm: regular rhythm Heart sounds: no murmurs GI: Inspection: normal to inspection Auscultation: normal bowel sounds Skin: General skin exam: normal color and no rashes or lesions noted Neuro: General: patient oriented x3 Cranial nerves: Yes CN's II-XII intact bilaterally and Yes Equal, round and reactive pupils present Speech: normal speech Motor exam (neuro): 5/5 motor strength present throughout Sensory Exam: normal sensation Extrem: General: normal to inspection and no edema Psych: Mental Status: mental status grossly normal Affect: normal affect DS: Data Data Completed and Pending Labs on day of discharge: Labs from last 24 hours 11/01/19 11/01/19 11/01/19 09:45 07:22 05:06 Sodium 140 Potassium 3.6 Chloride 104 Carbon Dioxide 29 Anion Gap 7 L BUN 14 D Creatinine 1.00 Estim Creat Clear Calc 90 Estimated GFR > 60 Glucose 192 H POC Capillary Glucose 204 H 211 H Calcium 8.2 L 10/31/19 10/31/19 10/31/19 20:46 16:30 11:40 Sodium Potassium Chloride Carbon Dioxide Anion Gap BUN Creatinine Estim Creat Clear Calc Estimated GFR Glucose POC Capillary Glucose 185 H 149 H 172 H Calcium Discharge Plan Discharge Attending physician on discharge: Rand De León Consulting providers: Zonia Shelley Discharging Clinician: Rand De León Anticipated Discharge Date/Time: 11/01/19 10:55 Patient Disposition: Home, Self-Care Activity: as tolerated Diet: steph
[2019-11-01 11:19] LABS: Glucose Point of Care 221 (65-105)
== END 2019-11-01 11:45 | disposition home or self-care (01) ==
LOC: ANHED 22:12 → ANH2MED 23:48
PROVIDERS: Emergency Medicine; Physician Assistant; Admitting Provider Family Medicine; Emergency Provider Emergency Medicine; PCP Family Medicine; Visit Provider Family Medicine
DX: I95.1 Orthostatic hypotension (principal); R53.1 Weakness; I65.23 Occlusion and stenosis of bilateral carotid arteries; M54.2 Cervicalgia; M25.512 Pain in left shoulder; M25.511 Pain in right shoulder; I12.9 Hypertensive chronic kidney disease with stage 1 through stage 4 chronic kidney disease, or unspecified chronic kidney disease; N18.3 Chronic kidney disease, stage 3 (moderate); E11.22 Type 2 diabetes mellitus with diabetic chronic kidney disease; I25.10 Atherosclerotic heart disease of native coronary artery without angina pectoris; D64.9 Anemia, unspecified; E11.21 Type 2 diabetes mellitus with diabetic nephropathy; E11.319 Type 2 diabetes mellitus with unspecified diabetic retinopathy without macular edema; E78.5 Hyperlipidemia, unspecified; E11.40 Type 2 diabetes mellitus with diabetic neuropathy, unspecified; I25.2 Old myocardial infarction; I48.0 Paroxysmal atrial fibrillation; Z79.82 Long term (current) use of aspirin; Z79.4 Long term (current) use of insulin; Z86.73 Personal history of transient ischemic attack (TIA), and cerebral infarction without residual deficits
CPT/HCPCS: 36415; 70450; 71046; 72125; 72128; 72131; 80048; 80053; 81001; 82948; 83735; 84443; 84484; 85025; 85380; 85610; 85730; 93005; 93306; 93880; 96360; 96361; 96365; 99285; A9270; G0378; G0379; J0131; J1815; J7030

== ENCOUNTER 2019-11-21 16:39 | Inpatient (IN) | payer BC, SELFPAY ==
[2019-11-21] VITALS (13 sets, daily range): BP systolic 99–155; BP diastolic 55–69; PULSE 90–111; RESP 12–20; TEMP 35.9–36.7; O2SAT 95–99; BMI 31.8
--- NOTE | ~2019-11-21 | XR_ITS ---
XR chest 1V portable 11/23/2019 10:43 Indication: Left axillary pain. Procedure: AP portable chest Comparison: Comparison to multiple prior studies sequentially, with oldest reviewed study dated 08/22. Findings: There is left basilar atelectasis/scarring. Cardiomegaly. The lungs are hyperinflated which is consistent with, but not diagnostic of chronic obstructive pulmonary disease. No focal pneumonia, edema, pleural effusion or pneumothorax. Impression: 1: Left basilar atelectasis/scarring. No acute cardiopulmonary disease. Reviewed, dictated and finalized at location A. Impression: 1: Left basilar atelectasis/scarring. No acute cardiopulmonary disease.
--- NOTE | ~2019-11-21 | XR_ITS ---
EXAMINATION: XR chest 2V DATE: 11/21/2019 17:47 INDICATION: Left-sided chest pain TECHNIQUE: Frontal and lateral views of the chest are obtained COMPARISON: 10/30/2019 FINDINGS: The lungs are free of acute opacities. There is no pleural effusion or pneumothorax. The ca rdiomediastinal silhouette is normal. There are bridging osteophytes at multiple levels in the spine, consistent with diffuse idiopathic skeletal hyperostosis (DISH). A cardiac loop recorder is implante d in the subcutaneous tissues of the anterior left chest wall. 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 IMPRESSION: 1. No acute cardiopulmonary abnormality. Reviewed, dictated and finalized at location A.
--- NOTE | 2019-11-21 16:51 | ECG_ITS ---
Measurements Intervals [place] Rate: 100 P: 28 MO: 180 QRS: 77 QRSD: 89 T: 231 QT: 336 QTc: 435 Interpretive Statements SINUS TACHYCARDIA LEFT VENTRICULAR HYPERTROPHY AND ST-T CHANGE ST-T WAVE ABNORMALITY IN ANTEROLAT/INF LEADS- CONSIDER ISCHEMIA ABNORMAL ECG Electronically Signed On 11-22-2019 6:44:50 CDT by Colin Moreland D.O.
[2019-11-21 16:57] LABS: Glucose Point of Care 352 (65-105)
[2019-11-21 17:29] LABS: Basophils Absolute Auto 0.1 K/mm3 (0.0-0.1); Basophils Percent Auto 0.8 % (0.2-1.2); Eosinophils Absolute Auto 0.1 K/mm3 (0-0.3); Eosinophils Percent Auto 1.4 % (0-4.4); Hematocrit 35.2 % (42.0-52.0); Hemoglobin 11.9 g/dL (14.0-18.0); Immature Granulocyte Absolute 0.02 K/mm3 (0.00-0.031); Immature Granulocyte Percent A 0.3 % (0-0.5); Lymphocytes Absolute Auto 1.34 K/mm3 (0.9-3.2); Lymphocytes Percent Auto 20.3 % (18.3-44.2); Mean Corpuscular HGB Conc 33.8 g/dl (32-36); Mean Corpuscular Hemoglobin 31.2 pg (26-34); Mean Corpuscular Volume 92.4 fl (80-100); Mean Platelet Volume 10.8 fl (7.4-10.4); Monocytes Absolute Auto 0.4 K/mm3 (0.1-0.6); Monocytes Percent Auto 6.7 % (2.6-8.5); Neutrophils Absolute Auto 4.7 K/mm3 (1.3-6.7); Neutrophils Percent Auto 70.5 % (45.5-73.1); Platelet Count Result 198 k/mm3 (150-375); Red Blood Count 3.81 M/mm3 (4.6-6.20); Red Cell Distribution Width 13.1 % (11.5-14.5); White Blood Count 6.6 K/mm3 (4.5-10.0)
[2019-11-21 17:38] LABS: INR 0.9; Prothrombin Time 12.2 Seconds (11.1-14.7)
[2019-11-21 17:39] LABS: Partial Thromboplastin Time 22.2 SECONDS (22.3-36.8)
[2019-11-21 17:40] LABS: Anion Gap 8 mmol/L (8-16); Blood Urea Nitrogen 22 mg/dL (9-20); Calcium 8.8 mg/dL (8.4-10.2); Carbon Dioxide 31 mmol/L (22-30); Chloride 97 mmol/L (98-107); Estimated Glomerular Filt Rate 41; Glucose 368 mg/dL (75-110); Potassium 4.2 mmol/L (3.4-5.0); Sodium 136 mmol/L (137-145)
[2019-11-21 17:53] LABS: Troponin I 0.038 ng/mL (0.000-0.034)
[2019-11-21] MEDS: SODIUM CHLORIDE 0.9% IV 1,000 ML 999 ML IV CONT (18:02)
--- NOTE | 2019-11-21 18:03 | ED.GENADULT ---
HPI - General Adult General Chief complaint: Recheck/Abnormal Lab/Rx Stated complaint: Diabetic issue and fever Time Seen by Provider: 11/21/19 16:46 History of Present Illness HPI narrative: Patient is a 64-year-old male who presents the ER with syncope. Patient reports he was at home when he passed on the ground. His door was open and a neighbor saw him hit the ground. They called the paramedics. Reports previous hospitalizations for syncope. Reports she also feels like his blood sugars been running higher than normal. Does not feel like he has been urinating more than normal and he has been drinking fluid adequately. Patient also reporting some mild left-sided chest pain that is nonradiating. No change with exertion. Related Data Home Medications Medication Instructions Recorded Confirmed aspirin [Aspirin Low Dose] 81 mg PO DAILY 01/08/19 10/31/19 atorvastatin 40 mg PO HS 01/08/19 10/31/19 gabapentin 400 mg PO TID 01/08/19 10/31/19 insulin aspart U-100 [Novolog 1 sliding scale dose SUBCUT TIDWM 01/08/19 10/31/19 U-100 Insulin aspart] metoprolol tartrate 25 mg PO Q12H 01/08/19 10/31/19 insulin aspart U-100 [Novolog 20 units SUBCUT TIDWM 10/31/19 10/31/19 U-100 Insulin aspart] Allergies Allergy/AdvReac Type Severity Reaction Status Date / Time No Known Allergies Allergy Verified 11/21/19 16:55 Review of Systems Review of Systems: All systems reviewed & are unremarkable except as noted in HPI and below Constitutional: Constitutional: Denies chills, Denies fever(s) and Denies weakness ENT: Denies dizziness, Denies nasal congestion and Denies sore throat Cardiovascular: Cardiovascular: Reports chest pain, Denies rapid heart rate and Denies radiating jaw, neck or arm pain Respiratory: Respiratory: Denies cough and Denies dyspnea Neurologic: Reports syncope, Denies focal weakness and Denies numbness PMFSH Social History Social History Social History: Mr. Cortez lives alone in an apartment complex for seniors. He does not drive due to his poor vision, however he is able to perform his ADLs independently. He is retired from the [employer]. He designates his sister, Yaz as his surrogate decision maker and he wishes to be a full code. He has 2 daughters who are relatively healthy. Smoking status: Never smoker Second hand tobacco smoke exposure: Yes Alcohol intake: never Substance use: never Additional living arrangements comments: The patient is currently living alone. He had been placed in a fdc for 3 years previously until he had corrective surgery for vision loss associated with his diabetes. He was discharged from fdc December 2017. Additional occupation/education comments: He is retired from a local [employer] where he worked for 35 years. He is now on disability following injuries associated with his diabetes. Gender identity (if verbalized by the patient): Male Spiritual care concerns: No Agree to blood products: Yes Exam Narrative: Exam Narrative: GENERAL: Well-appearing, well-nourished, and in no acute distress. HEAD: Normocephalic, atraumatic. ENT: Mucous membranes moist. CHEST: Clear to auscultation. No respiratory distress. HEART: Regular rate and rhythm. Normal peripheral pulses. ABDOMEN: Soft, nontender, nondistended. EXTREMITIES: Normal range of motion. No edema. SKIN: Warm, dry, no rash. NEURO: Alert and oriented x3. PSYCH: Normal mood and affect. Course Course Emergency Course: Admit to hospital service for observation and trending of troponins. Likely will improve with IV hydration. Elevated troponin seems to be baseline for this patient. Vital Signs Vital signs: Vital Signs Temperature 98.1 F 11/21/19 16:51 Pulse Rate 106 H 11/21/19 16:51 Respiratory Rate 18 11/21/19 16:51 Blood Pressure 126/61 11/21/19 16:51 Pulse Oximetry 99 11/21/19 16:51 Temperatu
--- NOTE | 2019-11-21 20:04 | ADMGEN ---
This patient, Jorge Alberto Cortez, was admitted to IMU Room 202-01 at 1954. Patient/family oriented to hospital policies and general routines including ID bracelet, bed and alarms, visiting hours, pain management, procedures, bathroom and other care routines, personal items, smoking policy, room service/diet, and visiting hours. Valuables list has been completed. Information on how to activate the Rapid Response Team has been discussed. Patient/Family are encouraged to report perceived risks to care and to ask questions if they do not understand what they are told or what they should do.
[2019-11-21 21:03] LABS: Troponin I 0.049 ng/mL (0.000-0.034)
[2019-11-21] MEDS: SODIUM CHLORIDE 0.9% IV 1,000 ML 125 ML IV CONT (21:30)
[2019-11-21] MEDS: INSULIN ASPART (*BKC) 100 UNITS/ML 6 UNITS SUB-Q (21:30)
[2019-11-21 22:12] LABS: Glucose Point of Care 326 (65-105)
--- NOTE | 2019-11-21 22:16 | PM.IMHP ---
H&P: HPI History of Present Illness Date/Time: 11/21/19 22:16 Chief complaint: litzy, syncope, elevated trop, Narrative: Jorge Alberto Cortez is a 64 year old male Who has been admitted multiple times for syncope, elevated troponin, and chest pain. Patient's last admission was on 10/31/2019 and was discharged the next day. His symptoms were resolved after IV hydration. Today the patient's creatinine was 1.7 and earlier this month as 1.0. The patient's creatinine has been up to 2.0 as of earlier this year. The patient states that he drinks plenty of fluids. He is not on any diuretics. He does like to drink coffee. The patient stated that he has a loop recorder and he has paroxysmal atrial fibrillation. The patient is not on any anticoagulation due to his frequent falls. The patient stated he used to see Dr. 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 The patient does not have a concert manager. He states that his loop recorder no longer works. Today the patient denied any dizziness no nausea no vomiting no fever no chills. He was at home when he passed out. His door was open and his neighbor saw him hit the ground. They called paramedics. His blood sugars have been running high today. Patient was complaining of some left-sided chest pain that was nonradiating. Troponin was 0.038 and then 0.049. The patient had a stress test in the past which was noted to be negative. EKG was read as sinus rhythm. ST T-wave abnormalities in the anterior leads same as his last EKG reading last month. When I talked to the patient he denied any further chest pain. The patient's blood sugars have been 368, 352, and 326. He was given insulin. He was given an aspirin in the emergency room and IV fluid bolus. Date of service 11/21/2019 Review of Systems Review of Systems: All systems reviewed & are unremarkable except as noted in HPI and below Constitutional: Constitutional: Reports as per HPI and Reports no additional constitutional complaints Eyes: Eyes: Reports as per HPI and Reports no additional eye complaints ENT: Reports system reviewed and no additional complaints, except as documented and Reports Normal hearing present Cardiovascular: Cardiovascular: Reports no additional cardiovascular complaints Respiratory: Respiratory: Reports no additional respiratory complaints and Reports no additional respiratory complaints Gastrointestinal: Gastrointestinal: Reports as per HPI and Reports no additional gastrointestinal complaints Musculoskeletal: Musculoskeletal: Reports no additional musculoskeletal complaints Integumentary/Breasts: Skin/Breast: Reports system reviewed and no additional complaints, except as docu and Reports as per HPI Neurologic: Reports system reviewed and no additional complaints, except as documented, Reports as per HPI and Reports Normal hearing present Psychiatric: Psychiatric: Reports no additional psychiatric complaints and Reports as per HPI Endocrine: Endocrine: Reports no additional endocrine complaints Hematologic/Lymphatic: Hematologic/Lymphatic: Reports no additional hematologic/lymphatic complaints Allergic/Immunologic: Allergic/Immunologic: Reports no additional allergic/immunologic complaints [facility] Past Medical History Medical History Arthritis CAD (coronary artery disease) Negative stress test November 2018 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 Diabetic nephropathy Diabetic retinopathy S/p retinal surgery Diastolic dysfunction Noted on prior echocardiogram but most recent echocardiogram demonstrating hyperdynamic left ventricle with EF greater than 70%
[2019-11-21 23:45] LABS: Troponin I 0.048 ng/mL (0.000-0.034)
[2019-11-22] VITALS (22 sets, daily range): BP systolic 89–178; BP diastolic 50–95; PULSE 90–125; RESP 16–20; TEMP 36.1–36.4; O2SAT 93–99
[2019-11-22] MEDS: ATORVASTATIN 40 MG TABLET PO ×2 (01:27→20:49)
[2019-11-22 04:37] LABS: Basophils Absolute Auto 0.1 K/mm3 (0.0-0.1); Basophils Percent Auto 0.7 % (0.2-1.2); Eosinophils Absolute Auto 0.1 K/mm3 (0-0.3); Eosinophils Percent Auto 1.5 % (0-4.4); Hematocrit 34.9 % (42.0-52.0); Hemoglobin 11.8 g/dL (14.0-18.0); Immature Granulocyte Absolute 0.02 K/mm3 (0.00-0.031); Immature Granulocyte Percent A 0.3 % (0-0.5); Lymphocytes Percent Auto 26.1 % (18.3-44.2); Mean Corpuscular HGB Conc 33.8 g/dl (32-36); Mean Corpuscular Hemoglobin 31.3 pg (26-34); Mean Corpuscular Volume 92.6 fl (80-100); Mean Platelet Volume 10.8 fl (7.4-10.4); Monocytes Absolute Auto 0.5 K/mm3 (0.1-0.6); Neutrophils Absolute Auto 4.7 K/mm3 (1.3-6.7); Neutrophils Percent Auto 64.4 % (45.5-73.1); Platelet Count Result 185 k/mm3 (150-375); Red Blood Count 3.77 M/mm3 (4.6-6.20); Red Cell Distribution Width 13.1 % (11.5-14.5); White Blood Count 7.3 K/mm3 (4.5-10.0)
[2019-11-22 04:55] LABS: Alanine Aminotransferase 29 U/L (4-50); Albumin Level 3.7 g/dL (3.5-5.1); Alkaline Phosphatase 101 U/L (38-126); Anion Gap 5 mmol/L (8-16); Aspartate Amino Transferase 41 U/L (17-59); Bilirubin,Total 0.5 mg/dL (0.2-1.3); Blood Urea Nitrogen 22 mg/dL (9-20); Calcium 8.8 mg/dL (8.4-10.2); Carbon Dioxide 32 mmol/L (22-30); Chloride 99 mmol/L (98-107); Estimated CRCL calculation 66 ml/min; Estimated Glomerular Filt Rate 51; Glucose 388 mg/dL (75-110); Magnesium 1.3 mg/dL (1.6-2.3); Sodium 136 mmol/L (137-145)
[2019-11-22 06:46] LABS: Free T4 Free Thyroxine Reflex 1.08 ng/dL (0.78-2.19)
[2019-11-22 07:59] LABS: Total Triiodothyronine (T3) 1.16 NG/ML (0.97-1.69)
[2019-11-22] MEDS: GABAPENTIN 400 MG CAPSULE PO ×3 (08:38→16:59)
[2019-11-22] MEDS: ASPIRIN 81 MG ENTERIC TABLET PO (08:38)
[2019-11-22] MEDS: MAGNESIUM SULF 2 GM/WATER 50ML 2 GM/50 ML BAG IVPB (08:42)
[2019-11-22] MEDS: INSULIN ASPART (*BKC) 100 UNITS/ML SUB-Q ×3 (08:43→16:58)
[2019-11-22] MEDS: INSULIN ASPART (*BKC) 100 UNITS/ML 20 UNITS SUB-Q ×3 (08:43→16:56)
[2019-11-22] MEDS: INSULIN GLARGINE (*BKC) 100 UNITS/ML 50 UNITS SUB-Q ×2 (08:44→20:49)
[2019-11-22 08:54] LABS: Glucose Point of Care 396 (65-105)
[2019-11-22 12:19] LABS: Glucose Point of Care 287 (65-105)
[2019-11-22] MEDS: MAGNESIUM OXIDE 400 MG TABLET PO (12:32)
--- NOTE | 2019-11-22 16:42 | PM.CNCAR ---
Assessment and Plan Additional Plan 64-year-old gentleman with diabetes and left ventricular hypertrophy with good systolic function. He has longstanding episodes of syncope that have been attributed to orthostatic hypotension in this is likely the most probable etiology of this based on his history and lack of arrhythmias noted on previous loop recorder which has not been functional for about 4 years. Would recommend resuming his beta-mark and try adding Florinef to this regimen. I will schedule him to be brought back to the hospital as an outpatient where we will explant his depleted loop recorder in place and new Medtronic LINQ device. The patient does not have to remain in the hospital to have that done on Monday. Tony Monk MD [facility] History of Present Illness History of Present Illness Consult date/time: Date of service. 11/22/19 16:42 Reason For Visit: litzy, syncope, elevated trop, Narrative: This is a 64-year-old man of seeing at the request of the hospitalist because of episode of syncope and suspected to have orthostatic hypotension. The patient was admitted for another episode like this last night and is being seen today in consultation. He has had this diagnosis for a number of years I actually saw him in the hospital for the same exact recent a couple of years ago. Multiple physicians have seen him for this and he had another episode that prompted readmission to the hospital. He apparently has episodes which are rather unpredictable at occur sporadically. They occur when he is standing into the upright position. He tends to have these episodes that are preceded by the sense of lightheadedness and presyncope. He usually has enough time to sit down or lie down before he loses consciousness. There have been some episodes where he actually has fallen over the years but he has never had any significant injuries or fractures. He saw a client application support engineer in [place] a number of years ago placed a Medtronic LINQ device for further monitoring of this. When I saw this patient last a couple of years ago the device had actually run out of battery power about a year before that and there had been no arrhythmias discovered of the entire time he had the device implanted. There were some brief episodes of paroxysmal atrial fibrillation discovered by the device. Because of his falls he was not felt to be a safe candidate for anticoagulation. He is not known to have coronary artery disease. He does have left ventricular hypertrophy by ECG and by echo with good systolic function his electrocardiogram shows a sinus mechanism with LVH and secondary repolarization abnormalities. Recent EKGs do not demonstrate any significant her serial changes. The patient has never been placed on Florinef or midodrine to try to treat these episodes. His principal concern and request for me is to place a new loop recorder. I had a long discussion with him about that concept. In I pointed out that he had a monitor device in place for several years until the battery and there were no significant arrhythmias that would explain syncope identified. At some point 1 would have to conclude that these syncopal episodes are not related to cardiac arrhythmias. Having said that it is reasonable to at least consider replacing his device 1 more time I supposed. His orthostatic hypotension has been attributed to again autonomic dysfunction likely related to his diabetes. Review of Systems Constitutional: Constitutional: Reports no additional constitutional complaints Eyes: Eyes: Reports no additional eye complaints ENT: Reports system reviewed and no additional complaints, except as documented Cardiovascular: Comments: Syncopal episodes as detailed above Respiratory: Respiratory: Reports no additional respiratory complaints Gastrointestinal: Gastrointestinal: Reports nausea Musculoskeletal: Musculoskeletal: Reports no additional musculoskeletal complaints In
--- NOTE | 2019-11-22 16:59 | PM.IMPN ---
Progress Note: A&P Assessment and Plan (1) Syncope due to orthostatic hypotension: Code(s): I95.1 - Orthostatic hypotension Status: Acute Assessment and Plan: Patient is on metoprolol some going to hold that today. Patient has loop recorder but states is not working. Patient stated that he was seeing Dr. Kaplan as a bench carpenter but no longer sees him in like to see bench carpenter here. Here has paroxysmal atrial fibrillation but is not on any anticoagulation due to his multiple falls. He stated that he would like to have another functioning loop recorder of possible. I will hold his Metoprolol for today. continue to monitor orthostatic blood pressure. 11/22/19 16:59 patient is 64-year-old male with history of uncontrolled diabetes he has had several admission with syncopal episode he was brought to the emergency department last night after he fell while ambulating and the corridor other residents saw him fall EMS was called and patient was brought to the emergency department for further evaluation he was found we orthostatic hypotension, elevated blood sugar and elevated tropes which are mild and flat, he does have a loop recorder it has been nonfunctional for several years, he was recently seen on October 30 with similar symptoms had a cardiac echo which was essentially normal showed hyperdynamic ejection fraction 70% and no significant carotid artery stenosis, patient was seen by bench carpenter and suspect most likely patient symptoms stemming from orthostatic hypotension and started the patient on Florinef, will monitor patient overnight check is orthostatics, if remains clinically stable will discharge the patient home in the morning. he will follow-up with bench carpenter for evaluation of his loop recorder. (2) Chest pain: Code(s): R07.9 - Chest pain, unspecified Status: Acute Assessment and Plan: Patient has a bump in his troponin and is no longer having any chest pain will continue to trend his troponin and ask Cardiology to see. The patient at passed out and it could be related to the fall. He also has chronic renal failure. Will continue to trend. Patient reported that he had a negative stress test in the past. (3) Elevated troponin: Code(s): R79.89 - Other specified abnormal findings of blood chemistry Status: Acute Assessment and Plan: He had a slight bump in his 1st and 2nd troponin. Will continue to trend. Patient has no further complaints of chest pain. (4) Acute kidney injury: Code(s): N17.9 - Acute kidney failure, unspecified Status: Acute Assessment and Plan: Patient had orthostatic blood pressures so patient could just be dehydrated. Will continue to hydrate the patient check his labs in the morning. He was here earlier this month was similar episode and appeared to respond to the fluids and was discharged the next day. (5) Diabetes mellitus, with long-term current use of insulin: Qualifiers: Diabetes mellitus type: type 2 Diabetes mellitus complication status: with kidney complications Diabetes mellitus complication detail: with chronic kidney disease Chronic kidney disease stage: stage 3 (moderate) Qualified Code(s): E11.22 - Type 2 diabetes mellitus with diabetic chronic kidney disease; N18.3 - Chronic kidney disease, stage 3 (moderate); Z79.4 - exterminator (current) use of insulin Code(s): E11.9 - Type 2 diabetes mellitus without complications; Z79.4 - USP (current) use of insulin Status: Chronic Assessment and Plan: Continue with home insulin and do sliding scale insulin as well. (6) Chronic anemia: Code(s): D64.9 - Anemia, unspecified Status: Chronic Assessment and Plan: Patient is at his baseline. (7) Hyperlipidemia: Code(s): E78.5 - Hyperlipidemia, unspecified Status: Chronic Assessment and Plan: Continue with atorvastatin. Subjective Date/time
[2019-11-22 17:21] LABS: Glucose Point of Care 311 (65-105)
[2019-11-22 20:33] LABS: Glucose Point of Care 267 (65-105)
[2019-11-22] MEDS: METOPROLOL TARTRATE 25 MG TABLET PO (20:49)
[2019-11-23] VITALS (20 sets, daily range): BP systolic 94–163; BP diastolic 50–96; PULSE 82–106; RESP 12–20; TEMP 35.9–36.8; O2SAT 94–97
[2019-11-23 04:18] LABS: Hematocrit 36.4 % (42.0-52.0); Hemoglobin 12.3 g/dL (14.0-18.0); Mean Corpuscular HGB Conc 33.8 g/dl (32-36); Mean Corpuscular Hemoglobin 31.1 pg (26-34); Mean Corpuscular Volume 91.9 fl (80-100); Platelet Count Result 166 k/mm3 (150-375); Red Blood Count 3.96 M/mm3 (4.6-6.20); Red Cell Distribution Width 12.7 % (11.5-14.5); White Blood Count 6.4 K/mm3 (4.5-10.0)
[2019-11-23 09:05] LABS: Anion Gap 8 mmol/L (8-16); Blood Urea Nitrogen 18 mg/dL (9-20); Calcium 8.7 mg/dL (8.4-10.2); Carbon Dioxide 29 mmol/L (22-30); Chloride 102 mmol/L (98-107); Estimated CRCL calculation 82 ml/min; Estimated Glomerular Filt Rate > 60; Glucose 294 mg/dL (75-110); Magnesium 1.7 mg/dL (1.6-2.3); Potassium 4.2 mmol/L (3.4-5.0); Sodium 139 mmol/L (137-145)
[2019-11-23] MEDS: ASPIRIN 81 MG ENTERIC TABLET PO (09:28)
[2019-11-23] MEDS: GABAPENTIN 400 MG CAPSULE PO ×3 (09:28→16:45)
[2019-11-23] MEDS: MAGNESIUM OXIDE 400 MG TABLET PO (09:28)
[2019-11-23] MEDS: METOPROLOL TARTRATE 25 MG TABLET PO ×2 (09:28→20:38)
[2019-11-23] MEDS: FLUDROCORTISONE ACETATE 0.1 MG TABLET PO (09:28)
[2019-11-23] MEDS: INSULIN GLARGINE (*BKC) 100 UNITS/ML 50 UNITS SUB-Q ×2 (09:30→21:03)
[2019-11-23 09:31] LABS: Glucose Point of Care 277 (65-105)
[2019-11-23] MEDS: INSULIN ASPART (*BKC) 100 UNITS/ML SUB-Q ×2 (09:31→13:04)
[2019-11-23] MEDS: INSULIN ASPART (*BKC) 100 UNITS/ML 20 UNITS SUB-Q ×3 (09:32→16:45)
--- NOTE | 2019-11-23 10:54 | PM.PNCARD ---
Progress Note: A&P Additional Plan Postural hypotension and recurrent syncope, ANDREW on presentation still appears dehydrated even though her drinks more fluids, plan IV fluids, cont on Fluorinef and B-mark, avoid tight BP control. Subjective Date/time seen: 11/23/19 10:54 Interval history: No acute events Sinus rhythm in Tele Still have dizziness on standing Left side chest pain with breathing, sharp and reproducible with touch Review of Systems Review of Systems: All systems reviewed & are unremarkable except as noted in HPI and below Exam Const: General: comfortable and no acute distress Other: Able to lie flat HENMT: General nose exam: Normal nares present and no epistaxis Mouth: Yes moist mucous membranes Eyes: Sclera: sclerae normal Pupils: Equal, round and reactive pupils present Neck: Neck: supple and no JVD Carotids: no bruits Resp: Auscultation: clear to auscultation bilaterally and lung sounds not diminished Other: No chest wall tenderness Cardio: Rate: regular rate Rhythm: regular rhythm Heart sounds: no gallops, no murmurs and no rubs GI: GI Palp: Yes Soft to palpation and No Tenderness to palpation present (GI) Auscultation: normal bowel sounds Skin: General skin exam: normal color, rashes and/or lesions noted and no erythema Other: Warm Neuro: Cranial nerves: Yes Equal, round and reactive pupils present Speech: normal speech Other: No obvious focal deficit or facial asymmetry Extrem: General: no edema Other: Normal capillary refills Intact distal pulses. Objective Data Vital Signs Vital Signs: Vital Signs - 24 hr 11/22/19 12:00 11/22/19 14:23 11/22/19 16:00 Temperature 36.1 C L Pulse Rate 106 H 98 97 Respiratory Rate 20 Blood Pressure 163/69 H Pulse Oximetry 99 11/22/19 16:08 11/22/19 18:19 11/22/19 19:39 Temperature 36.3 C L 36.3 C L Pulse Rate 101 H 104 H 97 Respiratory Rate 20 18 Blood Pressure 168/73 H 156/89 H Pulse Oximetry 93 96 11/22/19 19:40 11/22/19 19:41 11/22/19 19:42 Temperature Pulse Rate Respiratory Rate Blood Pressure 156/89 H 130/56 L 118/50 L Pulse Oximetry 11/22/19 20:00 11/22/19 20:49 11/22/19 21:58 Temperature Pulse Rate 95 105 H 94 Respiratory Rate Blood Pressure Pulse Oximetry 11/22/19 23:47 11/23/19 00:00 11/23/19 01:53 Temperature 36.1 C L Pulse Rate 90 92 82 Respiratory Rate 16 Blood Pressure 151/57 H Pulse Oximetry 96 11/23/19 04:00 11/23/19 06:00 11/23/19 08:00 Temperature 36.2 C L Pulse Rate 89 85 96 Respiratory Rate 18 Blood Pressure 147/68 H Pulse Oximetry 97 11/23/19 09:13 11/23/19 09:16 11/23/19 09:18 Temperature 35.9 C L 35.9 C L Pulse Rate 94 96 101 H Respiratory Rate 16 16 Blood Pressure 155/79 H 155/79 H 138/61 Pulse Oximetry 96 11/23/19 09:20 11/23/19 09:28 11/23/19 10:06 Temperature Pulse Rate 106 H 106 H 94 Respiratory Rate Blood Pressure 110/50 L Pulse Oximetry 11/23/19 10:07 Temperature Pulse Rate Respiratory Rate Blood Pressure Pulse Oximetry 95 Intake/Output Intake/Output: Intake & Output 11/20/19 11/21/19 11/22/19 11/23/19 23:59 23:59 23:59 23:59 Intake Total 1000 2260 422 Output Total 500 450 Balance 1000 1760 -28 Meds/Results Medications: Active Medications Generic Name Dose Route Start Last Admin Trade Name Freq PRN Reason Stop Dose Admin Acetaminophen 650 mg 11/21/19 18:13 Tylenol Tablet PO Q4H PRN Mild Pain (1-3) or Fever Hydrocodone Bitart/Acetaminophen 1 tab 11/21/19 18:13 [place] 5-325 Mg PO Q4H PRN Pain Rated 4-6 Aspirin 81 mg 11/22/19 09:00 11/23/19 09:28 Aspirin Ec PO 81 mg DAILY NIKA Administration Atorvastatin Calcium 40 mg 11/21/19 23:20 11/22/19 20:49 Lipitor PO 40 mg HS NIKA Administration Dextrose 12.5 gm 11/21/19 20:18 Dextrose 50% Syringe IV PUSH PRN PRN Hypoglycemia Protocol
--- NOTE | 2019-11-23 12:05 | PM.IMPN ---
Progress Note: A&P Assessment and Plan (1) Syncope due to orthostatic hypotension: Code(s): I95.1 - Orthostatic hypotension Status: Acute Assessment and Plan: Patient is on metoprolol some going to hold that today. Patient has loop recorder but states is not working. Patient stated that he was seeing Dr. Kaplan as a slitter cut off operator but no longer sees him in like to see slitter cut off operator here. Here has paroxysmal atrial fibrillation but is not on any anticoagulation due to his multiple falls. He stated that he would like to have another functioning loop recorder of possible. I will hold his Metoprolol for today. continue to monitor orthostatic blood pressure. 11/23/19 12:05 patient is 64-year-old male with history of uncontrolled diabetes he has had several admission with syncopal episode he was brought to the emergency department last night after he fell while ambulating and the corridor other residents saw him fall EMS was called and patient was brought to the emergency department for further evaluation he was found we orthostatic hypotension, elevated blood sugar and elevated tropes which are mild and flat, he does have a loop recorder it has been nonfunctional for several years, he was recently seen on October 30 with similar symptoms had a cardiac echo which was essentially normal showed hyperdynamic ejection fraction 70% and no significant carotid artery stenosis, on 11/21 patient was seen by slitter cut off operator and suspect most likely patient symptoms stemming from orthostatic hypotension and started the patient on Florinef, however patient did not recieve the mediation until this morning on 11/22, patient was seen by another slitter cut off operator and started of on IVF, patient still c/o dizzy and light headedness, it will take 1 to 2 days for patient acclimate his BP with Florinef, will monitor patient overnight check is orthostatics, if remains clinically stable will discharge the patient home in the morning. he will follow-up with slitter cut off operator for evaluation of his loop recorder. (2) Chest pain: Code(s): R07.9 - Chest pain, unspecified Status: Acute Assessment and Plan: Patient has a bump in his troponin and is no longer having any chest pain will continue to trend his troponin and ask Cardiology to see. The patient at passed out and it could be related to the fall. He also has chronic renal failure. Will continue to trend. Patient reported that he had a negative stress test in the past. (3) Elevated troponin: Code(s): R79.89 - Other specified abnormal findings of blood chemistry Status: Acute Assessment and Plan: He had a slight bump in his 1st and 2nd troponin. Will continue to trend. Patient has no further complaints of chest pain. (4) Acute kidney injury: Code(s): N17.9 - Acute kidney failure, unspecified Status: Acute Assessment and Plan: Patient had orthostatic blood pressures so patient could just be dehydrated. Will continue to hydrate the patient check his labs in the morning. He was here earlier this month was similar episode and appeared to respond to the fluids and was discharged the next day. (5) Diabetes mellitus, with long-term current use of insulin: Qualifiers: Diabetes mellitus type: type 2 Diabetes mellitus complication status: with kidney complications Diabetes mellitus complication detail: with chronic kidney disease Chronic kidney disease stage: stage 3 (moderate) Qualified Code(s): E11.22 - Type 2 diabetes mellitus with diabetic chronic kidney disease; N18.3 - Chronic kidney disease, stage 3 (moderate); Z79.4 - terminologist (current) use of insulin Code(s): E11.9 - Type 2 diabetes mellitus without complications; Z79.4 - terminologist (current) use of insulin Status: Chronic Assessment and Plan: Continue with home insulin and do sliding scale insulin as well. (6) Chronic anemia: Code(s): D64.9 - Anemia, unspecified
[2019-11-23 13:01] LABS: Glucose Point of Care 240 (65-105)
[2019-11-23] MEDS: SODIUM CHLORIDE 0.9% IV 1,000 ML 100 ML IV CONT (13:05)
--- NOTE | 2019-11-23 15:55 | PC.NURSE ---
This patient, Jorge Alberto Cortez, was transferred to [facility] on 11/23/19 at 1555. Personal belongings sent with patient. Belongings list checked and signed with receiving RN. Report given to KEELY Polk. Appropriate documentation sent with patient.
[2019-11-23 16:17] LABS: Glucose Point of Care 141 (65-105)
[2019-11-23] MEDS: HYDROcodone/acetaminophen (*CRX) 5-325 MG TABLET 1 TAB PO (16:43)
--- NOTE | 2019-11-23 17:32 | PC.NURSE ---
This patient, Jorge Alberto Cortez, was received from [[facility] on 11/23/19 at 1550. Personal belongings list checked and signed. Patient/family oriented to unit policies and routines
[2019-11-23] MEDS: ATORVASTATIN 40 MG TABLET PO (20:38)
[2019-11-23 21:33] LABS: Glucose Point of Care 121 (65-105)
[2019-11-24] VITALS (13 sets, daily range): BP systolic 99–183; BP diastolic 59–86; PULSE 76–116; RESP 16–20; TEMP 36.2–36.9; O2SAT 96–97
[2019-11-24] MEDS: SODIUM CHLORIDE 0.9% IV 1,000 ML 100 ML IV CONT (01:29)
--- NOTE | 2019-11-24 01:33 | PC.NURSE ---
Patient requesting to not get bothered too much throughout the night by staff.
[2019-11-24 06:39] LABS: Hematocrit 36.4 % (42.0-52.0); Hemoglobin 12.2 g/dL (14.0-18.0); Mean Corpuscular HGB Conc 33.5 g/dl (32-36); Mean Corpuscular Volume 92.6 fl (80-100); Mean Platelet Volume 10.3 fl (7.4-10.4); Platelet Count Result 196 k/mm3 (150-375); Red Blood Count 3.93 M/mm3 (4.6-6.20); White Blood Count 6.5 K/mm3 (4.5-10.0)
[2019-11-24 06:52] LABS: Potassium 3.9 mmol/L (3.4-5.0)
[2019-11-24 06:55] LABS: Anion Gap 7 mmol/L (8-16); Blood Urea Nitrogen 18 mg/dL (9-20); Calcium 8.4 mg/dL (8.4-10.2); Carbon Dioxide 32 mmol/L (22-30); Chloride 106 mmol/L (98-107); Estimated CRCL calculation 82 ml/min; Estimated Glomerular Filt Rate > 60; Glucose 192 mg/dL (75-110); Magnesium 1.8 mg/dL (1.6-2.3); Sodium 145 mmol/L (137-145)
[2019-11-24 07:59] LABS: Glucose Point of Care 190 (65-105)
[2019-11-24] MEDS: INSULIN ASPART (*BKC) 100 UNITS/ML 20 UNITS SUB-Q ×3 (09:09→17:48)
[2019-11-24] MEDS: INSULIN GLARGINE (*BKC) 100 UNITS/ML 50 UNITS SUB-Q ×2 (09:09→20:11)
[2019-11-24] MEDS: ASPIRIN 81 MG ENTERIC TABLET PO (09:10)
[2019-11-24] MEDS: FLUDROCORTISONE ACETATE 0.1 MG TABLET PO (09:10)
[2019-11-24] MEDS: METOPROLOL TARTRATE 25 MG TABLET PO ×2 (09:10→20:05)
[2019-11-24] MEDS: GABAPENTIN 400 MG CAPSULE PO ×3 (09:10→17:51)
[2019-11-24] MEDS: MAGNESIUM OXIDE 400 MG TABLET PO (09:10)
--- NOTE | 2019-11-24 10:49 | PM.PNCARD ---
Progress Note: A&P Additional Plan postural hypotension and supine hypertension, started flurinef yesterday, plan D/C IV fluids, cont to observe and if BP cont to rise may need to hold flurinef. Subjective Date/time seen: 11/24/19 10:49 Interval history: no acute events still has dizziness on standing with postural hypotension Review of Systems Review of Systems: All systems reviewed & are unremarkable except as noted in HPI and below Exam Const: General: comfortable and no acute distress Other: Able to lie flat HENMT: General nose exam: Normal nares present and no epistaxis Mouth: Yes moist mucous membranes Eyes: Sclera: sclerae normal Pupils: Equal, round and reactive pupils present Neck: Neck: supple and no JVD Carotids: no bruits Resp: Auscultation: clear to auscultation bilaterally and lung sounds not diminished Other: No chest wall tenderness Cardio: Rate: regular rate Rhythm: regular rhythm Heart sounds: no gallops, no murmurs and no rubs GI: GI Palp: Yes Soft to palpation and No Tenderness to palpation present (GI) Auscultation: normal bowel sounds Skin: General skin exam: normal color, rashes and/or lesions noted and no erythema Other: Warm Neuro: Cranial nerves: Yes Equal, round and reactive pupils present Speech: normal speech Other: No obvious focal deficit or facial asymmetry Extrem: General: no edema Other: Normal capillary refills Intact distal pulses. Objective Data Vital Signs Vital Signs: Vital Signs - 24 hr 11/23/19 12:00 11/23/19 13:03 11/23/19 16:00 Temperature 36.1 C L 36.5 C Pulse Rate 94 86 97 Respiratory Rate 20 12 Blood Pressure 128/96 H 159/68 H Pulse Oximetry 96 95 11/23/19 20:00 11/23/19 20:38 11/23/19 21:05 Temperature 36.8 C Pulse Rate 86 98 100 Respiratory Rate 16 Blood Pressure 163/69 H Pulse Oximetry 94 11/23/19 21:10 11/23/19 21:15 11/24/19 00:00 Temperature Pulse Rate 102 H 85 86 Respiratory Rate Blood Pressure 158/59 H 94/71 L Pulse Oximetry 11/24/19 02:00 11/24/19 04:00 11/24/19 06:00 Temperature 36.5 C 36.2 C L Pulse Rate 76 82 90 Respiratory Rate 16 16 Blood Pressure 166/61 H 163/86 H Pulse Oximetry 96 96 11/24/19 08:00 11/24/19 08:49 11/24/19 08:50 Temperature 36.6 C Pulse Rate 93 Respiratory Rate 18 Blood Pressure 183/83 H 157/67 H 110/62 Pulse Oximetry 96 11/24/19 09:10 Temperature Pulse Rate 100 Respiratory Rate Blood Pressure Pulse Oximetry Intake/Output Intake/Output: Intake & Output 11/21/19 11/22/19 11/23/19 11/24/19 23:59 23:59 23:59 23:59 Intake Total 1000 2260 2502 862 Output Total 500 450 Balance 1000 1760 2052 862 Meds/Results Medications: Active Medications Generic Name Dose Route Start Last Admin Trade Name Freq PRN Reason Stop Dose Admin Acetaminophen 650 mg 11/21/19 18:13 Tylenol Tablet PO Q4H PRN Mild Pain (1-3) or Fever Hydrocodone Bitart/Acetaminophen 1 tab 11/21/19 18:13 11/23/19 16:43 [place] 5-325 Mg PO 1 tab Q4H PRN Administration Pain Rated 4-6 Aspirin 81 mg 11/22/19 09:00 11/24/19 09:10 Aspirin Ec PO 81 mg DAILY NIKA Administration Atorvastatin Calcium 40 mg 11/21/19 23:20 11/23/19 20:38 Lipitor PO 40 mg HS NIKA Administration Dextrose 12.5 gm 11/21/19 20:18 Dextrose 50% Syringe IV PUSH PRN PRN Hypoglycemia Protocol Fludrocortisone Acetate 0.1 mg 11/23/19 09:00 11/24/19 09:10 Florinef PO 0.1 mg DAILY NIKA Administration Gabapentin 400 mg 11/22/19 09:00 11/24/19 09:10 Neurontin PO 400 mg TID NIKA Administration Glucagon 1 mg 11/21/19 20:18 Glucagon For Inj IM PRN PRN Hypoglycemia Protocol Glucose 15 gm 11/21/19 20:18 Glutose 15 PO PRN PRN Hypoglycemia Protocol Dextrose 1,000 mls @ 100 mls/hr 11/21/19 20:18 Dextrose 5% 1,000 Ml IVPB PRN PRN Hypoglycemia Protocol
[2019-11-24 11:50] LABS: Glucose Point of Care 242 (65-105)
--- NOTE | 2019-11-24 11:54 | PM.IMPN ---
Progress Note: A&P Assessment and Plan (1) Syncope due to orthostatic hypotension: Code(s): I95.1 - Orthostatic hypotension Status: Acute Assessment and Plan: Patient is on metoprolol some going to hold that today. Patient has loop recorder but states is not working. Patient stated that he was seeing Dr. Kaplan as a sugarcane research technician but no longer sees him in like to see sugarcane research technician here. Here has paroxysmal atrial fibrillation but is not on any anticoagulation due to his multiple falls. He stated that he would like to have another functioning loop recorder of possible. I will hold his Metoprolol for today. continue to monitor orthostatic blood pressure. 11/24/19 11:54 patient is 64-year-old male with history of uncontrolled diabetes he has had several admission with syncopal episode he was brought to the emergency department last night after he fell while ambulating and the corridor other residents saw him fall EMS was called and patient was brought to the emergency department for further evaluation he was found we orthostatic hypotension, elevated blood sugar and elevated tropes which are mild and flat, he does have a loop recorder it has been nonfunctional for several years, he was recently seen on October 30 with similar symptoms had a cardiac echo which was essentially normal showed hyperdynamic ejection fraction 70% and no significant carotid artery stenosis, on 11/21 patient was seen by sugarcane research technician and suspect most likely patient symptoms stemming from orthostatic hypotension and started the patient on Florinef, however patient did not recieve the mediation until morning on 11/22, patient was seen by the sugarcane research technician and started of on IVF, patient still c/o dizzy and light headedness, today on 11/23 patient BP is elevated and was seen by the sugarcane research technician and stop the IVF, it will take 1 to 2 days for patient acclimate his BP with Florinef, If BP remains high will hold Florinef, will monitor patient overnight check is orthostatics, if remains clinically stable will discharge the patient home in the morning. he will follow-up with sugarcane research technician for evaluation of his loop recorder. (2) Chest pain: Code(s): R07.9 - Chest pain, unspecified Status: Acute Assessment and Plan: Patient has a bump in his troponin and is no longer having any chest pain will continue to trend his troponin and ask Cardiology to see. The patient at passed out and it could be related to the fall. He also has chronic renal failure. Will continue to trend. Patient reported that he had a negative stress test in the past. (3) Elevated troponin: Code(s): R79.89 - Other specified abnormal findings of blood chemistry Status: Acute Assessment and Plan: He had a slight bump in his 1st and 2nd troponin. Will continue to trend. Patient has no further complaints of chest pain. (4) Acute kidney injury: Code(s): N17.9 - Acute kidney failure, unspecified Status: Acute Assessment and Plan: Patient had orthostatic blood pressures so patient could just be dehydrated. Will continue to hydrate the patient check his labs in the morning. He was here earlier this month was similar episode and appeared to respond to the fluids and was discharged the next day. (5) Diabetes mellitus, with long-term current use of insulin: Qualifiers: Diabetes mellitus type: type 2 Diabetes mellitus complication status: with kidney complications Diabetes mellitus complication detail: with chronic kidney disease Chronic kidney disease stage: stage 3 (moderate) Qualified Code(s): E11.22 - Type 2 diabetes mellitus with diabetic chronic kidney disease; N18.3 - Chronic kidney disease, stage 3 (moderate); Z79.4 - ad terminal makeup operator (current) use of insulin Code(s): E11.9 - Type 2 diabetes mellitus without complications; Z79.4 - half-way (current) use of insulin Status: Chronic Assessment and Plan: Continue with
[2019-11-24] MEDS: INSULIN ASPART (*BKC) 100 UNITS/ML SUB-Q (13:20)
[2019-11-24 16:54] LABS: Glucose Point of Care 127 (65-105)
[2019-11-24] MEDS: ATORVASTATIN 40 MG TABLET PO (20:05)
[2019-11-24 21:57] LABS: Glucose Point of Care 234 (65-105)
[2019-11-25] VITALS: BP 159/65; PULSE 75; PULSE 82; RESP 20; TEMP 36.7; O2SAT 96
[2019-11-25 04:00] VITALS: BP 155/72; PULSE 78; RESP 18; TEMP 36.7; O2SAT 96
[2019-11-25 06:37] LABS: Hematocrit 39.9 % (42.0-52.0); Hemoglobin 13.3 g/dL (14.0-18.0); Mean Corpuscular HGB Conc 33.3 g/dl (32-36); Mean Corpuscular Hemoglobin 31.4 pg (26-34); Mean Corpuscular Volume 94.1 fl (80-100); Mean Platelet Volume 10.6 fl (7.4-10.4); Platelet Count Result 215 k/mm3 (150-375); Red Blood Count 4.24 M/mm3 (4.6-6.20); Red Cell Distribution Width 13.2 % (11.5-14.5); White Blood Count 7.6 K/mm3 (4.5-10.0)
[2019-11-25 06:57] LABS: Anion Gap 8 mmol/L (8-16); Blood Urea Nitrogen 15 mg/dL (9-20); Calcium 8.4 mg/dL (8.4-10.2); Carbon Dioxide 33 mmol/L (22-30); Chloride 103 mmol/L (98-107); Estimated CRCL calculation 90 ml/min; Estimated Glomerular Filt Rate > 60; Glucose 177 mg/dL (75-110); Magnesium 1.9 mg/dL (1.6-2.3); Sodium 144 mmol/L (137-145)
[2019-11-25 08:00] VITALS: BP 155/72; PULSE 78; RESP 18; TEMP 36.7; O2SAT 96
[2019-11-25 08:25] LABS: Glucose Point of Care 189 (65-105)
[2019-11-25] MEDS: ASPIRIN 81 MG ENTERIC TABLET PO (09:08)
[2019-11-25] MEDS: GABAPENTIN 400 MG CAPSULE PO ×2 (09:09→14:10)
[2019-11-25] MEDS: MAGNESIUM OXIDE 400 MG TABLET PO (09:09)
[2019-11-25] MEDS: FLUDROCORTISONE ACETATE 0.1 MG TABLET PO (09:10)
[2019-11-25] MEDS: METOPROLOL TARTRATE 25 MG TABLET PO (09:10)
[2019-11-25] MEDS: INSULIN GLARGINE (*BKC) 100 UNITS/ML 50 UNITS SUB-Q (09:18)
[2019-11-25] MEDS: INSULIN ASPART (*BKC) 100 UNITS/ML 20 UNITS SUB-Q ×2 (09:18→14:14)
[2019-11-25 10:00] VITALS: BP 166/89; PULSE 86; RESP 16; TEMP 36.7; O2SAT 95
[2019-11-25 12:32] LABS: Glucose Point of Care 130 (65-105)
--- NOTE | 2019-11-25 13:00 | PC.NURSE ---
CALLED [facility] PARADA AND REPORTED NEED FOR DISCHARGE AND LOOP RECORDER TO BE FIXED TALKED WITH TUBING TESTER.
[2019-11-25 14:00] VITALS: BP 110/63; BP 130/71; BP 160/91; PULSE 90; PULSE 92; PULSE 98; RESP 18; TEMP 37.1; O2SAT 94; O2SAT 96; O2SAT 97
--- NOTE | 2019-11-25 14:15 | PM.PNCARD ---
Progress Note: A&P Assessment and Plan (1) Syncope due to orthostatic hypotension: Code(s): I95.1 - Orthostatic hypotension Status: Acute Assessment and Plan: Metoprolol tartrate 25 mg q.12 hours continued and florifnef 0.1mg started 11/22/2019 with improvement in symptoms. Supine blood pressures were more elevated yesterday but are acceptable today. Reviewed staying hydrated, keeping his blood sugars in normal range, getting up slowly, not standing if he is dizzy and to sit down rather than fall down if feeling faint. Compression hose as well as abdominal binder may help. He states he has both of those. No tachyarrhythmia, Satish a arrhythmias or pauses noted on telemetry the entire time he has been here. As [facility] does not accept his insurance, Dr. Monk does not plan to remove his old loop recorder and implant a new 1 as we would not be able to follow him in our office. He is to follow up with his Primary Care Provider 1-2 weeks. Additional Plan OK to discharge from cardiac standpoint Plan discussed with Dr. Monk 1430 11/25/2019 Subjective Date/time seen: 11/25/19 14:15 Interval history: Follow-up for: Syncope, orthostatic hypotension Date of service: 11/25/2019 Subjective: Still dizzy when he stands but improved. Denied shortness of breath. Able to lie flat in bed. Musculoskeletal chest discomfort left lower ribs. Tender to palpation and increases in intensity with inspiration Review of Systems Constitutional: Comments: Wants to go home Eyes: Eyes: Denies blurry vision ENT: Reports Normal hearing present Cardiovascular: Cardiovascular: Denies syncope, Denies pedal edema, Denies leg edema, Reports lightheadedness, Denies palpitations and Denies dyspnea Respiratory: Respiratory: Denies dyspnea and Denies wheezing Gastrointestinal: Gastrointestinal: Denies abdominal pain, Denies nausea and Denies vomiting Musculoskeletal: Musculoskeletal: Reports other (Musculoskeletal discomfort left lower ribs) Neurologic: Reports Normal hearing present, Reports dizziness (Improved) and Denies syncope Psychiatric: Psychiatric: Denies anxiety Exam Const: General: comfortable and no acute distress Other: Able to lie flat HENMT: General nose exam: Normal nares present and no epistaxis Mouth: Yes moist mucous membranes Eyes: Sclera: sclerae normal Pupils: Equal, round and reactive pupils present Neck: Neck: supple Resp: Effort & Inspection: normal respiratory effort Auscultation: clear to auscultation bilaterally Other: Tenderness to palpation left lower ribcage Cardio: Rate: regular rate Rhythm: regular rhythm Heart sounds: no gallops and no rubs Other: Very soft systolic murmur that does not radiate from the left sternal border GI: Auscultation: normal bowel sounds Skin: General skin exam: normal color, rashes and/or lesions noted and no erythema Other: Warm Neuro: Cranial nerves: Yes Equal, round and reactive pupils present Cognition (Neuro): normal cognition Speech: normal speech Other: No obvious focal deficit or facial asymmetry Extrem: General: normal to inspection and no edema Other: Normal capillary refills Intact distal pulses. Objective Data Vital Signs Vital Signs: Vital Signs - 24 hr 11/24/19 16:00 11/24/19 20:00 11/24/19 20:05 Temperature 36.6 C Pulse Rate 76 97 96 Respiratory Rate 20 Blood Pressure 152/85 H Pulse Oximetry 96 11/24/19 20:21 11/25/19 00:00 11/25/19 04:00 Temperature 36.7 C 36.7 C Pulse Rate 116 H 75 78 Respiratory Rate 20 18 Blood Pressure 99/59 L 159/65 H 155/72 H Pulse Oximetry 96 96 11/25/19 08:00 11/25/19 10:00 Temperature 36.7 C 36.7 C Pulse Rate 78 86 Respiratory Rate 18 16 Blood Pressure 155/72 H 166/89 H Pulse Oximetry 96 95 Intake/Output Intake/Output: Intake & Output 11/22/19 11/23/19 11/24/19 11/25/19 23:59 23:59 23:59 23:59 Intake Total 2260 7592 2132 590 Output T
--- NOTE | 2019-11-25 14:41 | PM.DS ---
DS: Admitting Diagnosis Admitting Diagnosis Admitting Diagnosis: litzy, syncope, elevated trop, DS: Discharge Diagnosis Discharge Diagnosis (1) Syncope due to orthostatic hypotension: Code(s): I95.1 - Orthostatic hypotension Status: Acute Assessment and Plan: Patient is on metoprolol some going to hold that today. Patient has loop recorder but states is not working. 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 Here has paroxysmal atrial fibrillation but is not on any anticoagulation due to his multiple falls. He stated that he would like to have another functioning loop recorder of possible. I will hold his Metoprolol for today. continue to monitor orthostatic blood pressure. 11/24/19 11:54 patient is 64-year-old male with history of uncontrolled diabetes he has had several admission with syncopal episode he was brought to the emergency department last night after he fell while ambulating and the corridor other residents saw him fall EMS was called and patient was brought to the emergency department for further evaluation he was found we orthostatic hypotension, elevated blood sugar and elevated tropes which are mild and flat, he does have a loop recorder it has been nonfunctional for several years, he was recently seen on October 30 with similar symptoms had a cardiac echo which was essentially normal showed hyperdynamic ejection fraction 70% and no significant carotid artery stenosis, on 11/21 patient was seen by precision assembly inspector and suspect most likely patient symptoms stemming from orthostatic hypotension and started the patient on Florinef, however patient did not recieve the mediation until morning on 11/22, patient was seen by the precision assembly inspector and started of on IVF, patient still c/o dizzy and light headedness, today on 11/23 patient BP is elevated and was seen by the precision assembly inspector and stop the IVF, it will take 1 to 2 days for patient acclimate his BP with Florinef, If BP remains high will hold Florinef, will monitor patient overnight check is orthostatics, if remains clinically stable will discharge the patient home in the morning. he will follow-up with precision assembly inspector for evaluation of his loop recorder. (2) Chest pain: Code(s): R07.9 - Chest pain, unspecified Status: Acute Assessment and Plan: Patient has a bump in his troponin and is no longer having any chest pain will continue to trend his troponin and ask Cardiology to see. The patient at passed out and it could be related to the fall. He also has chronic renal failure. Will continue to trend. Patient reported that he had a negative stress test in the past. (3) Elevated troponin: Code(s): R79.89 - Other specified abnormal findings of blood chemistry Status: Acute Assessment and Plan: He had a slight bump in his 1st and 2nd troponin. Will continue to trend. Patient has no further complaints of chest pain. (4) Acute kidney injury: Code(s): N17.9 - Acute kidney failure, unspecified Status: Acute Assessment and Plan: Patient had orthostatic blood pressures so patient could just be dehydrated. Will continue to hydrate the patient check his labs in the morning. He was here earlier this month was similar episode and appeared to respond to the fluids and was discharged the next day. 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
== END 2019-11-25 16:15 | disposition home or self-care (01) | DRG 204 ==
LOC: ANHED 18:36 → ANHIMU 18:39 → ANH3MEDSUR 11-23 15:48
PROVIDERS: Nurse Practitioner; Admitting Provider Family Medicine; Emergency Provider Emergency Medicine; PCP Family Medicine; Visit Provider Family Medicine
DX: I95.1 Orthostatic hypotension (principal); E11.42 Type 2 diabetes mellitus with diabetic polyneuropathy; E11.22 Type 2 diabetes mellitus with diabetic chronic kidney disease; N18.3 Chronic kidney disease, stage 3 (moderate); N17.9 Acute kidney failure, unspecified; E11.65 Type 2 diabetes mellitus with hyperglycemia; I12.9 Hypertensive chronic kidney disease with stage 1 through stage 4 chronic kidney disease, or unspecified chronic kidney disease; D63.1 Anemia in chronic kidney disease; R07.9 Chest pain, unspecified; R79.89 Other specified abnormal findings of blood chemistry; E78.5 Hyperlipidemia, unspecified; I25.10 Atherosclerotic heart disease of native coronary artery without angina pectoris; I25.2 Old myocardial infarction; Z28.21 Immunization not carried out because of patient refusal; Z79.4 Long term (current) use of insulin; Z79.899 Other long term (current) drug therapy; Z86.73 Personal history of transient ischemic attack (TIA), and cerebral infarction without residual deficits; Z91.81 History of falling; Z95.818 Presence of other cardiac implants and grafts
CPT/HCPCS: 36415; 71045; 71046; 80048; 80053; 82728; 83735; 84439; 84443; 84480; 84484; 85025; 85027; 85610; 85730; 93005; 96360; 96361; 96374; 97161; 97165; 99285; A9270; G0378; G0379; J1815; J3475; J7030

== ENCOUNTER 2020-03-21 18:37 | Emergency (ER) | payer MEDICARE, MEDICAID, SELFPAY ==
--- NOTE | ~2020-03-21 | XR_ITS ---
EXAMINATION: XR chest 2V EXAM DATE: 03/21/2020 19:11 INDICATION: Weakness dizziness hypertension coronary artery disease. TECHNIQUE: Frontal and lateral projections of the chest obtained and reviewed. Comparison is made to prior examination from 11/13/2019. FINDINGS: Cardiac monitoring device. No confluent consolidation, pneumothorax or pleural effusion blackmon spected. Mild hyperinflation. Upper limits of normal heart size. 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 IMPRESSION: No acute cardiopulmonary findings. Reviewed, dictated and finalized at location A. R INSTALLER AND REMOVER
[2020-03-21 18:37] VITALS: BP 173/93; PULSE 103; RESP 24; TEMP 36.7; O2SAT 99
--- NOTE | 2020-03-21 18:37 | ECG_ITS ---
Measurements Intervals [place] Rate: 95 P: [place]: 0 QRS: 79 QRSD: 105 T: 231 QT: 364 QTc: 458 Interpretive Statements SINUS RHYTHM ATRIAL PREMATURE COMPLEX POSSIBLE LEFT VENTRICULAR HYPERTROPHY ST-T WAVE ABNORMALITY IN ANTEROLAT/INF LEADS- CONSIDER ISCHEMIA BASELINE WANDER- V5 ABNORMAL ECG Electronically Signed On 03-22-2020 7:38:26 INSURANCE CLAIMS SUPERVISOR by Colin Moreland D.O.
[2020-03-21 18:41] VITALS: PULSE 99
--- NOTE | 2020-03-21 18:42 | PC.NURSE ---
BS 248
[2020-03-21 18:43] LABS: Glucose Point of Care 248 (65-105)
--- NOTE | 2020-03-21 19:01 | PC.NURSE ---
PT TO XRAY VIA STRETCHER
[2020-03-21 19:03] LABS: Basophils Absolute Auto 0.1 K/mm3 (0.0-0.1); Basophils Percent Auto 0.7 % (0.2-1.2); Eosinophils Absolute Auto 0.2 K/mm3 (0-0.3); Eosinophils Percent Auto 2.4 % (0-4.4); Hematocrit 39.4 % (42.0-52.0); Hemoglobin 13.2 g/dL (14.0-18.0); Immature Granulocyte Absolute 0.01 K/mm3 (0.00-0.031); Immature Granulocyte Percent A 0.1 % (0-0.5); Lymphocytes Absolute Auto 2.03 K/mm3 (0.9-3.2); Lymphocytes Percent Auto 30.2 % (18.3-44.2); Mean Corpuscular HGB Conc 33.5 g/dl (32-36); Mean Corpuscular Volume 92.5 fl (80-100); Mean Platelet Volume 10.6 fl (7.4-10.4); Monocytes Absolute Auto 0.5 K/mm3 (0.1-0.6); Monocytes Percent Auto 7.3 % (2.6-8.5); Neutrophils Percent Auto 59.3 % (45.5-73.1); Platelet Count Result 212 k/mm3 (150-375); Red Blood Count 4.26 M/mm3 (4.6-6.20); Red Cell Distribution Width 13.5 % (11.5-14.5); White Blood Count 6.7 K/mm3 (4.5-10.0)
[2020-03-21 19:16] LABS: Add Urine Microscopic? YES; Appearance Urine Clear (Clear); Bilirubin Urine Negative (Negative); Blood Urine Negative (Negative); Color Urine Yellow (Yellow); Glucose Urine UA 3+ mg/dL (Negative); Hyaline Casts Urine 15-19 /lpf; Ketones Urine Negative (Negative); Leukocyte Esterase Ur Negative LEU/UL (Negative); Mucus Urine Rare /lpf; Nitrate Urine Negative (Negative); Protein Urine 2+ mg/dL (Negative); RBC Urine 0-2 /hpf (0-2); Specific Grav Ur 1.017 (1.001-1.035); Squamous Epithelial Cell Urine Rare /hpf (Few); Urobilinogen Urine Negative mg/dL (<2.0); WBC Urine 0-3 /hpf
[2020-03-21 19:21] LABS: Alanine Aminotransferase 28 U/L (4-50); Albumin Level 4.3 g/dL (3.5-5.1); Alkaline Phosphatase 97 U/L (38-126); Anion Gap 7 mmol/L (8-16); Aspartate Amino Transferase 44 U/L (17-59); Bilirubin,Total 0.3 mg/dL (0.2-1.3); Blood Urea Nitrogen 21 mg/dL (9-20); Calcium 8.9 mg/dL (8.4-10.2); Carbon Dioxide 37 mmol/L (22-30); Chloride 96 mmol/L (98-107); Estimated CRCL calculation 53 ml/min; Estimated Glomerular Filt Rate 41; Glucose 243 mg/dL (75-110); Potassium 3.2 mmol/L (3.4-5.0); Sodium 140 mmol/L (137-145)
[2020-03-21 19:31] VITALS: BP 163/73; PULSE 88; RESP 16; O2SAT 98
[2020-03-21] MEDS: SODIUM CHLORIDE 0.9% IV 1,000 ML 999 ML IV CONT ×2 (19:31→20:20)
--- NOTE | 2020-03-21 19:31 | ED.WEAKNESS ---
HPI - Weakness General Chief complaint: Weakness Stated complaint: doesn't feel right Time Seen by Provider: 03/21/20 19:07 History of Present Illness HPI Narrative: Patient is a 65-year-old male who presents to the ER with generalized weakness. Reports today his blood pressures been running between the 300s and 400s. Has had decreased PO intake. Compliant with medications. No respiratory//GI sx. No alleviating/aggravating factors. NO h/o CHF but does have CKD related to DM/HTN. Related Data Home Medications Medication Instructions Recorded Confirmed aspirin [Aspirin Low Dose] 81 mg PO DAILY 01/08/19 11/21/19 atorvastatin 40 mg PO HS 01/08/19 11/21/19 gabapentin 400 mg PO TID 01/08/19 11/21/19 insulin aspart U-100 [Novolog 1 sliding scale dose SUBCUT TIDWM 01/08/19 11/21/19 U-100 Insulin aspart] metoprolol tartrate 25 mg PO Q12H 01/08/19 11/21/19 insulin aspart U-100 [Novolog 20 units SUBCUT TIDWM 10/31/19 11/21/19 U-100 Insulin aspart] Allergies Allergy/AdvReac Type Severity Reaction Status Date / Time No Known Allergies Allergy Verified 11/21/19 16:55 Review of Systems Review of Systems: All systems reviewed & are unremarkable except as noted in HPI and below Constitutional: Constitutional: Denies chills, Reports fatigue and Denies fever(s) ENT: Denies nasal congestion and Denies sore throat Comments: No loss of taste/smell Cardiovascular: Cardiovascular: Denies chest pain and Denies radiating jaw, neck or arm pain Respiratory: Respiratory: Denies cough, Denies dyspnea and Denies wheezing Gastrointestinal: Gastrointestinal: Denies abdominal pain, Denies diarrhea, Denies nausea and Denies vomiting Genitourinary: Genitourinary: Denies dysuria and Denies urinary frequency Neurologic: Denies dizziness PMF Past Medical History Medical History (Updated 03/21/20 @ 21:42 by Benton Zavala MD) Arthritis CAD (coronary artery disease) Negative stress test November 2018 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 Diabetic nephropathy Diabetic retinopathy S/p retinal surgery Diastolic dysfunction Noted on prior echocardiogram but most recent echocardiogram demonstrating hyperdynamic left ventricle with EF greater than 70% with no mention of diastolic dysfunction Essential hypertension History of angina Hyperlipidemia Kidney stones NSTEMI (non-ST elevated myocardial infarction) With chronic troponin elevation Orthostatic hypotension Paroxysmal atrial fibrillation Not on anticoagulation due to high has bled score/high fall risk Peripheral neuropathy Surgical History Surgical History (Updated 11/21/19 @ 22:23 by Fouzia Shannon NP) History of cholecystectomy History of loop recorder patient states that it no longer works. Status post cataract extraction of both eyes with insertion of intraocular lens Family History Family History Sibling Hypertension Father Polycystic kidney disease Colon cancer Diabetes mellitus Prostate carcinoma Mother Cerebrovascular accident CHF (congestive heart failure) Diabetes mellitus Acute myocardial infarction Social History Social History (Updated 11/21/19 @ 22:24 by Fouzia Shannon NP) Social History: Mr. Cortez lives alone in an apartment complex for seniors. He does not drive due to his poor vision, however he is able to perform his ADLs independently. He is retired from the [employer]. He designates his sister, Yaz as his surrogate decision maker and he wishes to be a full code. He has 2 daughters who are relatively healthy. He is . Smoking stat
[2020-03-21 20:28] VITALS: BP 186/73; PULSE 88; RESP 13; O2SAT 98
[2020-03-21 21:44] VITALS: BP 163/79; PULSE 88; RESP 12; O2SAT 99
[2020-03-21 21:54] VITALS: BP 178/78; PULSE 97; RESP 18; O2SAT 100
== END 2020-03-21 21:56 | disposition home or self-care (01) ==
PROVIDERS: Emergency Medicine; Emergency Provider Emergency Medicine; PCP Family Medicine
DX: E86.0 Dehydration (principal); E11.22 Type 2 diabetes mellitus with diabetic chronic kidney disease; I12.9 Hypertensive chronic kidney disease with stage 1 through stage 4 chronic kidney disease, or unspecified chronic kidney disease; N18.30 Chronic kidney disease, stage 3 unspecified; Z77.22 Contact with and (suspected) exposure to environmental tobacco smoke (acute) (chronic); Z79.4 Long term (current) use of insulin; D63.1 Anemia in chronic kidney disease; I25.10 Atherosclerotic heart disease of native coronary artery without angina pectoris; Z86.73 Personal history of transient ischemic attack (TIA), and cerebral infarction without residual deficits; E11.21 Type 2 diabetes mellitus with diabetic nephropathy; E11.319 Type 2 diabetes mellitus with unspecified diabetic retinopathy without macular edema; E78.5 Hyperlipidemia, unspecified; I48.0 Paroxysmal atrial fibrillation; E11.42 Type 2 diabetes mellitus with diabetic polyneuropathy; I25.2 Old myocardial infarction; Z87.442 Personal history of urinary calculi; I49.1 Atrial premature depolarization; R94.31 Abnormal electrocardiogram [ECG] [EKG]
CPT/HCPCS: 36415; 71046; 80053; 81001; 82948; 85025; 93005; 96360; 96361; 99283; J7030

== ENCOUNTER 2020-06-24 20:08 | Observation (INO) | payer MEDICAID, SELFPAY ==
--- NOTE | ~2020-06-24 | CT_ITS ---
EXAMINATION: CT brain wo con DATE: 06/24/2020 22:01 INDICATION: Loss of consciousness TECHNIQUE: Computed tomography (CT) of the head was performed without intravenous contrast. Sagittal and coronal reconstructions were performed. The mA was adjusted according to patient size. Iterative reconstruction technique was employed. The dose-length product was 681.00 mGy-cm. COMPARISON: head CT dated 10/30/2019 FINDINGS: Complete agenesis of the corpus callosum. Small focus of encephalomalacia at the right occipital lobe consistent with chronic infarct. There is mild scattered white matter hypoattenuation consistent wit h chronic small vessel ischemic disease. No acute intracranial hemorrhage, acute infarction or abnorm al extra axial fluid collection. 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 No mass/mass effect . Changes of bilateral intraocular lens replacement. The orbits, paranasal sinuses and mastoid air ce lls are normal. IMPRESSION: 1. Small old infarct in the right occipital lobe. No acute intracranial process. 2. 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 Mild scattered white matter hypoattenuation consistent with chronic small vessel ischemic disease. Reviewed, dictated and finalized at location A. IMPRESSION: 1. Small old infarct in the right occipital lobe. No acute intracranial process . 2. 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 Mild scattered white matter hypoattenuation consistent with chronic small ve ssel ischemic disease.
--- NOTE | ~2020-06-24 | XR_ITS ---
EXAMINATION: XR chest 1V portable DATE: 06/25/2020 00:34 INDICATION: Cough. TECHNIQUE: A single frontal view of the chest was obtained on 2 radiographs. COMPARISON: Chest 2 views 03/21/2020, thoracic spine CT 10/30/2019 FINDINGS: The chest demonstrates clear lungs without pneumonia, pleural effusion, or pneumothorax. Th e heart size is normal. An electronic device overlies left chest. IMPRESSION: 1. No acute cardiopulmonary disease. Reviewed, dictated and finalized at location A.
[2020-06-24 20:11] VITALS: BP 178/71; PULSE 99; RESP 14; TEMP 37.1; O2SAT 95
[2020-06-24 20:39] VITALS: BP 178/71; PULSE 97; RESP 13; RESP 15; TEMP 37.1; O2SAT 95
--- NOTE | 2020-06-24 20:41 | PC.NURSE ---
Pt presents to ED via EMS with comlaints of elevate blood glucose. Pt states his wireless monitor read HI. Pt states prior to checking glucose he began to feel light headed and dizzy. Pt states he loc x2 prior to arrival of EMS; states he was sitting on couch at that time. Pt denies hitting the floor and head injury. No lacerations, wounds or bleeding noted. Pt alert and oriented x4. Glucose 469 upon arrival to ED. Pt complains of intermittent nausea and denies chest pain, sob, emesis and diarrhea, fever and chills. At this time pt states I feel lousy. I'm dizzy, weak, and lightheaded . Pt resting on cart in its lowest position with call button and personal items within reach. Pt advised to press call button for assistance.
[2020-06-24 20:53] LABS: Glucose Point of Care 469 (65-105)
--- NOTE | 2020-06-24 21:06 | ECG_ITS ---
Measurements Intervals [place] Rate: 94 P: 17 [place]: 193 QRS: 82 QRSD: 109 T: 231 QT: 367 QTc: 461 Interpretive Statements SINUS RHYTHM ST-T WAVE ABNORMALITY IN ANTEROLAT/INF LEADS- CONSIDER ISCHEMIA BASELINE ARTIFACT- V3-V5 ABNORMAL ECG Electronically Signed On 06-25-2020 7:13:56 CDT by Colin Moreland D.O.
[2020-06-24 21:26] LABS: Basophils Absolute Auto 0.1 K/mm3 (0.0-0.1); Basophils Percent Auto 0.7 % (0.2-1.2); Eosinophils Absolute Auto 0.1 K/mm3 (0-0.3); Eosinophils Percent Auto 1.6 % (0-4.4); Hematocrit 33.7 % (42.0-52.0); Hemoglobin 11.3 g/dL (14.0-18.0); Immature Granulocyte Absolute 0.02 K/mm3 (0.00-0.031); Immature Granulocyte Percent A 0.3 % (0-0.5); Lymphocytes Absolute Auto 1.89 K/mm3 (0.9-3.2); Lymphocytes Percent Auto 25.1 % (18.3-44.2); Mean Corpuscular HGB Conc 33.5 g/dl (32-36); Mean Corpuscular Hemoglobin 30.6 pg (26-34); Mean Corpuscular Volume 91.3 fl (80-100); Mean Platelet Volume 11.1 fl (7.4-10.4); Monocytes Absolute Auto 0.6 K/mm3 (0.1-0.6); Monocytes Percent Auto 7.4 % (2.6-8.5); Neutrophils Absolute Auto 4.9 K/mm3 (1.3-6.7); Neutrophils Percent Auto 64.9 % (45.5-73.1); Platelet Count Result 198 k/mm3 (150-375); Red Blood Count 3.69 M/mm3 (4.6-6.20); Red Cell Distribution Width 13.8 % (11.5-14.5); White Blood Count 7.5 K/mm3 (4.5-10.0)
--- NOTE | 2020-06-24 21:26 | ED.DIZZY ---
HPI - Dizziness General Chief Complaint: Recheck/Abnormal Lab/Rx Stated Complaint: high bs, weak, dizzy, loc Time Seen by Provider: 06/24/20 21:05 Source: patient Mode of arrival: ambulatory Limitations: no limitations History of Present Illness HPI Narrative: Patient is a 65-year-old male complaining of elevated blood sugar at home. Patient states that his glucose meter read high . Patient states that prior to checking his blood sugar he was lightheaded. Patient also states that he had 2 syncopal episodes lasting for only 1 to 2 minutes prior to arrival. Patient states that he was sitting on his couch when he passed out, denies any head, neck, back, chest, abdomen, pelvis or any extremity pain/injury. Denies any symptoms. Patient denies any speech or visual disturbance, focal weakness or numbness, chest pain, shortness of breath, dull pain, nausea, vomiting, diarrhea, fever or chills. Related Data Home Medications Medication Instructions Recorded Confirmed aspirin [Aspirin Low Dose] 81 mg PO DAILY 01/08/19 11/21/19 atorvastatin 40 mg PO HS 01/08/19 11/21/19 gabapentin 400 mg PO TID 01/08/19 11/21/19 insulin aspart U-100 [Novolog 1 sliding scale dose SUBCUT TIDWM 01/08/19 11/21/19 U-100 Insulin aspart] metoprolol tartrate 25 mg PO Q12H 01/08/19 11/21/19 insulin aspart U-100 [Novolog 20 units SUBCUT TIDWM 10/31/19 11/21/19 U-100 Insulin aspart] Allergies Allergy/AdvReac Type Severity Reaction Status Date / Time No Known Allergies Allergy Verified 11/21/19 16:55 Review of Systems Review of Systems: All systems reviewed & are unremarkable except as noted in HPI and below Constitutional: Constitutional: Denies body ache(s), Denies chills, Denies excessive sweating, Denies fatigue, Denies fever(s), Denies headache(s), Denies lethargy, Denies malaise, Denies weakness and Denies weight loss Eyes: Eyes: Denies blurry vision, Denies change in vision and Denies loss of vision ENT: Denies dizziness, Denies ear discharge, Denies headache(s), Denies lip swelling, Denies epistaxis, Denies nasal congestion, Denies neck pain, Denies throat swelling and Denies tongue swelling Cardiovascular: Cardiovascular: Denies chest pain, Denies chest pain at rest, Denies chest pain with activity, Denies diaphoresis, Denies rapid heart rate, Denies edema, Denies irregular heart rhythm, Denies lightheadedness, Denies palpitations, Denies dyspnea and Denies dyspnea on exertion Respiratory: Respiratory: Denies chest congestion, Denies cough, Denies hemoptysis, Denies dyspnea and Denies dyspnea on exertion Gastrointestinal: Gastrointestinal: Denies abdominal pain, Denies melena, Denies hematochezia, Denies diarrhea, Denies nausea, Denies vomiting and Denies hematemesis Musculoskeletal: Musculoskeletal: Denies abnormal gait, Denies deformity, Denies joint swelling, Denies limited range of motion, Denies neck pain and Denies numbness Neurologic: Denies Abnormal speech present, Denies abnormal gait, Denies confusion, Denies dizziness, Denies headache(s), Denies focal weakness, Denies loss of vision, Denies numbness, Denies Other visual disturbances, Denies Sensory deficit (Neuro) and Denies weakness Psychiatric: Psychiatric: Denies confusion, Denies depression, Denies auditory hallucinations, Denies homicidal ideation and Denies suicidal ideation Endocrine: Endocrine: Denies cold intolerance, Denies excessive sweating, Denies fatigue, Denies heat intolerance and Denies palpitations Hematologic/Lymphatic: Hematologic/Lymphatic: Denies easy bleeding and Denies easy bruising Allergic/Immunologic: Allergic/Immunologic: Denies lip swelling, Denies throat swelling and Denies tongue swelling [facility] Past Medical History Medical History (Updated 06/25/20 @ 00:40 by Bartolome Pink MD) Arthritis CAD (coronary artery disease) Negative stress test November 2018 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 Kaplan Chronic anemia Chronic kidney disease Stage III 0.9 and 1.4
[2020-06-24 21:31] LABS: Add Urine Microscopic? YES; Appearance Urine Clear (Clear); Bilirubin Urine Negative (Negative); Blood Urine Negative (Negative); Color Urine Straw (Yellow); Glucose Urine UA 3+ mg/dL (Negative); Ketones Urine Negative (Negative); Leukocyte Esterase Ur Negative LEU/UL (Negative); Mucus Urine Rare /lpf; Nitrate Urine Negative (Negative); Protein Urine 2+ mg/dL (Negative); RBC Urine 0-2 /hpf (0-2); Squamous Epithelial Cell Urine Rare /hpf (Few); Urobilinogen Urine Negative mg/dL (<2.0); WBC Urine 0-3 /hpf
--- NOTE | 2020-06-24 21:32 | PC.NURSE ---
EDMD at bedside.
[2020-06-24] MEDS: SODIUM CHLORIDE 0.9% IV 1,000 ML 999 ML IV CONT (21:38)
[2020-06-24 21:43] LABS: Alveolar/Arterial O2 Gradient 22.7 mmHg; Base Excess ABG 8.2 mEq/l (+/-2.0); Carboxyhemoglobin 0.2 % THb (0-2.0); Fractional Inspired Oxygen 21 %; HCO3 ABG 33.6 mEq/l (22.0-26.0); Oxygen Content ABG 15.7 %vol (16.0-22.0); Oxygen Saturation ABG 93.7 % (95.0-100.0); Oxyhemoglobin 92.9 % THb (90.0-100.0); PCO2 ABG 50.3 mmHg (35.0-45.0); PO2 ABG 66.8 mmHg (80.0-100.0); PO2 FiO2 Ratio Arterial Blood 3.18 %; Reduced Hemoglobin 6.9 %THb (0-5.0); pH ABG 7.443 (7.350-7.450)
[2020-06-24 21:44] LABS: INR 0.9; Prothrombin Time 12.5 Seconds (11.1-14.7)
[2020-06-24 21:45] LABS: Anion Gap 8 mmol/L (8-16); Blood Urea Nitrogen 25 mg/dL (9-20); Calcium 8.4 mg/dL (8.4-10.2); Carbon Dioxide 33 mmol/L (22-30); Chloride 94 mmol/L (98-107); Estimated CRCL calculation 55 ml/min; Estimated Glomerular Filt Rate 41; Glucose 463 mg/dL (75-110); Potassium 3.5 mmol/L (3.4-5.0); Sodium 135 mmol/L (137-145)
[2020-06-24 21:45] LABS: Device ROOM AIR; Modified Allen's Test Pass; Site Drawn LEFT RADIAL
[2020-06-24 21:47] LABS: Partial Thromboplastin Time 27.3 SECONDS (22.3-36.8)
[2020-06-24 21:58] LABS: Troponin I 0.075 ng/mL (0.000-0.034)
--- NOTE | 2020-06-24 22:00 | PC.NURSE ---
pt to radiology via cart.
[2020-06-24 23:06] VITALS: BP 169/77; PULSE 99; RESP 15; O2SAT 94
--- NOTE | 2020-06-24 23:07 | PC.NURSE ---
Pt resting on cart with stable vitals. Updated on poc and all questions and concerns addressed. Pt advised to press call button for assistance.
[2020-06-25] VITALS (19 sets, daily range): BP systolic 138–194; BP diastolic 56–102; PULSE 84–111; RESP 14–20; TEMP 36.1–37.2; O2SAT 93–101; BMI 32.8
[2020-06-25] MEDS: LACTATED RINGERS 1,000 ML 125 ML IV CONT (00:55)
[2020-06-25] MEDS: INSULIN HUMAN REGULAR (*BKC) 100 UNITS/ML 8 UNITS IV PUSH (00:55)
[2020-06-25] MEDS: ASPIRIN 81 MG CHEWABLE TABLET 324 MG PO (00:56)
[2020-06-25 01:09] LABS: Troponin I 0.075 ng/mL (0.000-0.034)
--- NOTE | 2020-06-25 01:09 | PC.NURSE ---
Addendum entered by Janene Valera RN 06/25/20 01:15: Glucose 333. Original Note: glucos 333.
[2020-06-25 01:11] LABS: Glucose Point of Care 333 (65-105)
--- NOTE | 2020-06-25 01:14 | PC.NURSE ---
Report called to Mandy. Lehman to send pt to floor.
--- NOTE | 2020-06-25 01:41 | ADMGEN ---
This patient, Jorge Alberto Cortez, was admitted to IMU Room 207-01. Patient/family oriented to hospital policies and general routines including ID bracelet, bed and alarms, visiting hours, pain management, procedures, bathroom and other care routines, personal items, smoking policy, room service/diet, and visiting hours. Information on how to activate the Rapid Response Team has been discussed. Patient/Family are encouraged to report perceived risks to care and to ask questions if they do not understand what they are told or what they should do. Janene RIGGS arrived [id number]
[2020-06-25 04:09] LABS: Troponin I 0.075 ng/mL (0.000-0.034)
--- NOTE | 2020-06-25 05:33 | PM.IMHP ---
H&P: HPI History of Present Illness Date/Time: 06/25/20 05:33 this is a 65-year-old male patient who came to the emergency room complaining of having elevated sugars at home. The patient has a DEXA come attached to his left arm. The patient stated that his glucose meter read high. The patient stated that he had 2 syncopal episodes while sitting on the couch today that lasted only 1-2 minutes prior to arrival. The patient has a history of having syncopal episodes. He also has a history of having orthostatic hypotension. The patient denied any chest pain or shortness of breath. Patient was noted to have chronically elevated troponins. The patient did not have an anion gap. His blood sugar was 469 and then Prieb 33. Patient's creatinine is 1.7 with a GFR 41 which is at his baseline. The patient stated that he feels very dry. Most likely this is due to his elevated blood sugar. CT scan of the brain was read as small old infarct in the right occipital lobe. No acute intracranial process. 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 Mild scattered white matter hypoattenuation consistent with chronic small vessel ischemic disease. The patient's troponins are 0.075 and 0.075. This is the patient's baseline. The patient was given IV fluids in the emergency room which did help to bring down his blood sugar some. The patient was given an aspirin for the elevated troponins however the patient is not having any chest pain. The patient was given IV push insulin as well subcu. Seen by cardiology here in the past who continued his Florinef for the orthostatic hypotension. The patient tells me that he is still taking this. The patient stated that he felt dizzy today. The patient is being admitted to observation status on the date of service of 06/25/2020. Chief Complaint: Syncopal episode Review of Systems Review of Systems: All systems reviewed & are unremarkable except as noted in HPI and below Constitutional: Constitutional: Reports as per HPI and Reports no additional constitutional complaints Eyes: Eyes: Reports as per HPI and Reports no additional eye complaints ENT: Reports system reviewed and no additional complaints, except as documented and Reports Normal hearing present Cardiovascular: Cardiovascular: Reports no additional cardiovascular complaints Respiratory: Respiratory: Reports no additional respiratory complaints and Reports no additional respiratory complaints Gastrointestinal: Gastrointestinal: Reports as per HPI and Reports no additional gastrointestinal complaints Musculoskeletal: Musculoskeletal: Reports no additional musculoskeletal complaints Integumentary/Breasts: Skin/Breast: Reports system reviewed and no additional complaints, except as docu and Reports as per HPI Neurologic: Reports system reviewed and no additional complaints, except as documented, Reports as per HPI and Reports Normal hearing present Psychiatric: Psychiatric: Reports no additional psychiatric complaints and Reports as per HPI Endocrine: Endocrine: Reports no additional endocrine complaints Hematologic/Lymphatic: Hematologic/Lymphatic: Reports no additional hematologic/lymphatic complaints Allergic/Immunologic: Allergic/Immunologic: Reports no additional allergic/immunologic complaints [facility] Past Medical History Medical History Arthritis CAD (coronary artery disease) Negative stress test 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 Diabetic nephropathy Diabetic retinopathy S/p retinal surgery Diastolic dysfunction Noted on prior echocardiogram but most recent echocardi
[2020-06-25 05:49] LABS: Glucose Point of Care 309 (65-105)
[2020-06-25 06:15] LABS: Basophils Percent Auto 0.4 % (0.2-1.2); Eosinophils Absolute Auto 0.1 K/mm3 (0-0.3); Eosinophils Percent Auto 1.4 % (0-4.4); Hematocrit 33.3 % (42.0-52.0); Immature Granulocyte Absolute 0.02 K/mm3 (0.00-0.031); Immature Granulocyte Percent A 0.3 % (0-0.5); Lymphocytes Absolute Auto 1.75 K/mm3 (0.9-3.2); Lymphocytes Percent Auto 24.4 % (18.3-44.2); Mean Corpuscular Volume 90.7 fl (80-100); Mean Platelet Volume 10.4 fl (7.4-10.4); Monocytes Absolute Auto 0.5 K/mm3 (0.1-0.6); Monocytes Percent Auto 6.7 % (2.6-8.5); Neutrophils Absolute Auto 4.8 K/mm3 (1.3-6.7); Neutrophils Percent Auto 66.8 % (45.5-73.1); Platelet Count Result 197 k/mm3 (150-375); Red Blood Count 3.67 M/mm3 (4.6-6.20); Red Cell Distribution Width 13.5 % (11.5-14.5); White Blood Count 7.2 K/mm3 (4.5-10.0)
[2020-06-25 06:26] LABS: Alanine Aminotransferase 27 U/L (4-50); Albumin Level 3.6 g/dL (3.5-5.1); Alkaline Phosphatase 101 U/L (38-126); Anion Gap 3 mmol/L (8-16); Aspartate Amino Transferase 44 U/L (17-59); Bilirubin,Total 0.2 mg/dL (0.2-1.3); Blood Urea Nitrogen 21 mg/dL (9-20); Calcium 8.5 mg/dL (8.4-10.2); Carbon Dioxide 37 mmol/L (22-30); Chloride 99 mmol/L (98-107); Estimated CRCL calculation 62 ml/min; Estimated Glomerular Filt Rate 47; Glucose 309 mg/dL (75-110); Magnesium 1.8 mg/dL (1.6-2.3); Potassium 3.3 mmol/L (3.4-5.0); Sodium 139 mmol/L (137-145)
[2020-06-25 06:28] LABS: Lactic Acid Reflex 1.5 mmol/L (0.7-2.1)
[2020-06-25] MEDS: GABAPENTIN 400 MG CAPSULE PO ×3 (06:40→20:53)
[2020-06-25 06:50] LABS: Hemoglobin A1C 9.7 % (<5.7)
[2020-06-25 08:22] LABS: Glucose Point of Care 264 (65-105)
[2020-06-25] MEDS: MAGNESIUM OXIDE 400 MG TABLET PO (10:09)
[2020-06-25] MEDS: FLUDROCORTISONE ACETATE 0.1 MG TABLET PO (10:09)
[2020-06-25] MEDS: METOPROLOL TARTRATE 25 MG TABLET PO ×2 (10:09→20:53)
[2020-06-25] MEDS: ASPIRIN 81 MG ENTERIC TABLET PO (10:09)
[2020-06-25] MEDS: INSULIN ASPART (*BKC) 100 UNITS/ML SUB-Q ×2 (10:13→12:33)
[2020-06-25] MEDS: INSULIN ASPART (*BKC) 100 UNITS/ML 20 UNITS SUB-Q ×2 (10:16→12:35)
[2020-06-25] MEDS: INSULIN GLARGINE (*BKC) 100 UNITS/ML 50 UNITS SUB-Q (10:17)
--- NOTE | 2020-06-25 11:53 | PM.CNCAR ---
Assessment and Plan Assessment and plan (1) Syncope due to orthostatic hypotension: Code(s): I95.1 - Orthostatic hypotension Status: Acute Assessment and Plan: Check orthostatics. Patient remains on fludrocortisone. Recommend lower extremity compression stockings. Avoid dehydration. Suspect syncope related to autonomic dysfunction, uncontrolled blood sugars past several days resulting in degree of intravascular volume depletion. 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 Reportedly paroxysmal atrial fibrillation noted. Loop recorder currently nonfunctional. [id number] carotid arterial disease October 2019 not contributing to longer standing syncope with well documented orthostatic hypotension. Gentle hydration depending upon blood pressure readings and blood sugar control. Ambulate with extreme caution. Rise slowly from seated position. As result of these episodes patient is a poor candidate for systemic anticoagulation for reported history of paroxysmal atrial fibrillation. He is currently in sinus rhythm. Historically complicated management with regards to blood pressure control and or symptomatic orthostasis. Prior echocardiogram with preserved LV function, no significant valve pathology although moderate left ventricular hypertrophy a observed. My only concern in this regard would be the development of dynamic left ventricular outflow tract gradient with progressive LVH coupled with intravascular volume depletion. Exam is not suggestive of significant LVOT obstruction. I do not feel repeating his echocardiogram will alter management at this time. Will observe response to therapy with recommendations to follow as appropriate. (2) Elevated troponin: Code(s): R79.89 - Other specified abnormal findings of blood chemistry Status: Acute Assessment and Plan: Chronic troponin elevation flat curve not consistent with acute coronary syndrome. This is a non [place] troponin elevation related to underlying kidney disease, hyperglycemia, hypertension. No anginal symptoms or EKG changes suggestive myocardial ischemia. No indication for ischemic workup at this time as he is completely asymptomatic in this regard despite having risk factors. (3) Severe hyperglycemia due to diabetes mellitus: Code(s): E11.65 - Type 2 diabetes mellitus with hyperglycemia Status: Acute Assessment and Plan: Per primary service. Patient states he has been compliant with diet and medical therapy, however, review of his blood sugar logs over the past several days reveals marked hyperglycemia with several readings listed as high otherwise in the mid upper 400s for the past 36 hours otherwise 200-400 range past 4 days overall. (4) Paroxysmal atrial fibrillation: Code(s): I48.0 - Paroxysmal atrial fibrillation Status: Chronic Assessment and Plan: No documented recurrence thus far. Not an anticoagulation candidate due to recurrent syncopal events, falls due to orthostasis. Continue aspirin 81 mg daily. Increased embolic stroke risk off anticoagulation but even higher risk for catastrophic inter cerebral bleeding complications on systemic anticoagulation given his history as above. Continue low-dose metoprolol as tolerated. (5) Chronic kidney disease: Qualifiers: Chronic kidney disease stage: stage 3 (moderate) Qualified Code(s): N18.3 - Chronic kidney disease, stage 3 (moderate) Code(s): N18.9 - Chronic kidney disease, unspecified Status: Chronic Assessment and Plan: Stable, essentially at baseline renal function. History of Present Illness History of Present Illness Consult date/time: Date of service: 06/25/20 11:53 Cardiology consultation at the request of Fouzia Shannon for my opinion regarding elevated Trop I and synco
[2020-06-25 12:12] LABS: Glucose Point of Care 205 (65-105)
--- NOTE | 2020-06-25 13:48 | PM.IMPN ---
Progress Note: A&P Assessment and Plan (1) Syncope due to orthostatic hypotension: Code(s): I95.1 - Orthostatic hypotension Status: Acute Assessment and Plan: The patient has a history of having orthostatic hypotension. The patient stated that he was sitting conversing normally when he had sudden syncopal episode. CXR clear. CT brain showing old CVA but no acute finidings. Consider dysrhythmia. Hypoglycemia possible but glucose 460 in the field. Seizure possible but not seen at the time and no post-event confusion or incontinence. Spoke with cardiology who state this is long standing syncope with extensive workup without clear etiology despite Loop recorder. Could be related to mild dehydration from marked hyperglycemia associated with his autonomic dysfunction. Check orthostatic VS. Add Mo hose. Request Loop report. (2) Severe hyperglycemia due to diabetes mellitus: Code(s): E11.65 - Type 2 diabetes mellitus with hyperglycemia Status: Acute Assessment and Plan: A1c 9.7. The patient has DM with retinopathy, nephropathy and neuropathy. Glucose poorly controlled prior to the syncopal event but up to 460 after the event. Glucose elevated here but better controlled into the 200's now. Has been having elevated glucose at home. Diabteic educator has seen the patient. Continue sliding scale insulin. Continue with the Lantus but decrease dose per diabetic eductor recommendations. Continue with the patient's Neurontin. (3) Elevated troponin: Code(s): R79.89 - Other specified abnormal findings of blood chemistry Status: Acute Assessment and Plan: Troponin elevated at 0.075 but flat. Patient has chronically elevated troponin noted on chart review. The patient has no complaints of any chest pain. Cardiology consulted. Continue ASA, Lipitor, and Lopressor. (4) Chronic kidney disease: Qualifiers: Chronic kidney disease stage: stage 3 (moderate) Qualified Code(s): N18.3 - Chronic kidney disease, stage 3 (moderate) Code(s): N18.9 - Chronic kidney disease, unspecified Status: Chronic Assessment and Plan: Cr 1.5 on admission. Baseline Cr is a wide range from 1.0-1.7 so probably within baseline. Reepat Cr stable at 1.5. Continue to follow. (5) Paroxysmal atrial fibrillation: Code(s): I48.0 - Paroxysmal atrial fibrillation Status: Chronic Assessment and Plan: EKG showing normal sinus rhythm. Loop recorder did reveal pAFib. He is not on any anticoagulation due to his fall risk. Continue tele (6) DVT prophylaxis: Code(s): Z29.9 - Encounter for prophylactic measures, unspecified Status: Acute Assessment and Plan: SCDs. Subjective Date/time seen: 06/25/20 13:48 Interval history: 65yo male with CKD, DM and orthostatic HoTN here for hyperglycemia and syncope. patient states his glucose was well controlled prior to the syncopal event. He had no chest pain, palpitations or lightheadedness prior to the event. Patient had no symptoms prior to the event. no tongue biting. No urine incontinence. No seizure-like activity by people who were at the scene. Patient states he fell to the ground but denies pain in any of his joints. No neck pain or abdominal pain. He has no scrapes on his arms or legs. he was unconscious for about 5 minutes. He denies feeling confused when he awoke. Exam Narrative: Exam Narrative: AF 98.0 181/81 98 20 94% ra Gen - NARD Chest - CTA bilaterally, nml RR CV - RRR S1/S2With 2/6 systolic murmur loudest at the upper border without radiation. Telemetry showing no significant dysrhythmias. Abd - Soft, NT/ND, Positive BS Ext - No pedal edema Neuro - Alert and oriented. Nonfocal exam. Psych - Nml mood and affect Skin - Warm and dry Objective Data Vital Signs Vital Signs: Vital Signs - 24 hr 06/24/20 20:11 06/24/20 20:39 06/24/20 23:06 Tem
[2020-06-25 16:15] LABS: Glucose Point of Care 178 (65-105)
[2020-06-25] MEDS: INSULIN ASPART (*BKC) 100 UNITS/ML 16 UNITS SUB-Q (17:09)
[2020-06-25] MEDS: SODIUM CHLORIDE 0.9% IV 1,000 ML 100 ML IV CONT (17:12)
[2020-06-25] MEDS: ATORVASTATIN 40 MG TABLET PO (20:53)
[2020-06-25] MEDS: INSULIN GLARGINE (*BKC) 100 UNITS/ML 40 UNITS SUB-Q (20:54)
[2020-06-25 21:00] LABS: Glucose Point of Care 196 (65-105)
[2020-06-26] VITALS (12 sets, daily range): BP systolic 136–198; BP diastolic 60–86; PULSE 79–93; RESP 16–18; TEMP 36.1–36.6; O2SAT 95–97
[2020-06-26 05:35] LABS: Anion Gap 4 mmol/L (8-16); Blood Urea Nitrogen 17 mg/dL (9-20); Calcium 8.1 mg/dL (8.4-10.2); Carbon Dioxide 36 mmol/L (22-30); Chloride 101 mmol/L (98-107); Estimated CRCL calculation 83 ml/min; Estimated Glomerular Filt Rate > 60; Glucose 213 mg/dL (75-110); Potassium 3.4 mmol/L (3.4-5.0); Sodium 141 mmol/L (137-145)
[2020-06-26] MEDS: GABAPENTIN 400 MG CAPSULE PO (05:46)
[2020-06-26 05:59] LABS: Cortisol Random 9.09 ug/dL
[2020-06-26] MEDS: INSULIN GLARGINE (*BKC) 100 UNITS/ML 40 UNITS SUB-Q (08:04)
[2020-06-26] MEDS: INSULIN ASPART (*BKC) 100 UNITS/ML 16 UNITS SUB-Q ×2 (08:05→12:16)
[2020-06-26] MEDS: INSULIN ASPART (*BKC) 100 UNITS/ML SUB-Q ×2 (08:05→12:16)
[2020-06-26] MEDS: METOPROLOL TARTRATE 25 MG TABLET PO (08:07)
[2020-06-26] MEDS: ASPIRIN 81 MG ENTERIC TABLET PO (08:07)
[2020-06-26] MEDS: MAGNESIUM OXIDE 400 MG TABLET PO (08:07)
[2020-06-26] MEDS: FLUDROCORTISONE ACETATE 0.1 MG TABLET PO (08:07)
[2020-06-26 09:22] LABS: Glucose Point of Care 240 (65-105)
--- NOTE | 2020-06-26 12:01 | PM.PNCARD ---
Progress Note: A&P Assessment and Plan (1) Syncope due to orthostatic hypotension: Code(s): I95.1 - Orthostatic hypotension Status: Acute Assessment and Plan: Patient is mild to moderately orthostatic and appears to be mildly symptomatic. Remains on fludrocortisone. Received IV fluids yesterday. Lower extremity compression stockings advised. Continue current medical therapy. Etiology likely autonomic dysfunction. Patient counseled previously on the importance of avoidance of dehydration, blood sugar control cautious ambulation. No further cardiovascular workup indicated at this time. Reviewed [employer] loop recorder interrogation from July 2017 with implant date October 13, 2014 for syncope. Lifetime with 33 symptom episodes 2 tachy episodes no Satish or pause episodes noted. Battery status approaching end of life as of August 25, 2017. Per this report no evidence of bradyarrhythmia contributing to symptomatic episodes. No indication for implantation of new device. Will follow-up with Dr. Monk in 8 weeks as an outpatient primarily due to history of paroxysmal atrial fibrillation. Disposition per hospitalist service. Will sign off. Continue aspirin, atorvastatin, fludrocortisone, and metoprolol. (2) Elevated troponin: Code(s): R79.89 - Other specified abnormal findings of blood chemistry Status: Acute Assessment and Plan: Chronic troponin elevation flat curve not consistent with acute coronary syndrome. This is a non [place] troponin elevation related to underlying kidney disease, hyperglycemia, hypertension. No anginal symptoms or EKG changes suggestive myocardial ischemia. No indication for ischemic workup at this time as he is completely asymptomatic in this regard despite having risk factors. (3) Severe hyperglycemia due to diabetes mellitus: Code(s): E11.65 - Type 2 diabetes mellitus with hyperglycemia Status: Acute Assessment and Plan: Per primary service. (4) Paroxysmal atrial fibrillation: Code(s): I48.0 - Paroxysmal atrial fibrillation Status: Chronic Assessment and Plan: No documented recurrence thus far. Not an anticoagulation candidate due to recurrent syncopal events, falls due to orthostasis. Continue aspirin 81 mg daily. Increased embolic stroke risk off anticoagulation but even higher risk for catastrophic intracerebral bleeding complications on systemic anticoagulation given his history as above. Continue low-dose metoprolol as tolerated. (5) Chronic kidney disease: Qualifiers: Chronic kidney disease stage: stage 3 (moderate) Qualified Code(s): N18.3 - Chronic kidney disease, stage 3 (moderate) Code(s): N18.9 - Chronic kidney disease, unspecified Status: Chronic Assessment and Plan: Stable, essentially at baseline renal function. Subjective Date/time seen: Date of service: 06/26/20 12:01 Follow-up for elevated troponin, orthostatic hypotension and syncope Feels a little dizzy getting up fasting move slowly but otherwise no concerns. Denies chest pain, palpitation, shortness of breath. Otherwise feels well and has no new concern. Received IV fluids yesterday. No significant arrhythmias on telemetry overnight. Review of Systems Review of Systems: All systems reviewed & are unremarkable except as noted in HPI and below Constitutional: Constitutional: Reports as per HPI, Reports no additional constitutional complaints, Denies chills, Denies fatigue, Denies lethargy and Denies weakness Eyes: Eyes: Reports as per HPI and Reports no additional eye complaints ENT: Reports system reviewed and no additional complaints, except as documented and Reports as per HPI Cardiovascular: Cardiovascular: Reports as per HPI, Reports no additional cardiovascular complaints, Denies chest pain, Denies diaphoresis, Reports leg edema, Reports lightheadedness, Denies palpitations, Denies dyspnea and Denies dyspn
[2020-06-26 12:40] LABS: Glucose Point of Care 203 (65-105)
--- NOTE | 2020-06-26 13:48 | PM.DS ---
DS: Admitting Diagnosis Admitting Diagnosis Admitting Diagnosis: Hyperglycemia, Syncope DS: Discharge Diagnosis Discharge Diagnosis (1) Syncope due to orthostatic hypotension: Code(s): I95.1 - Orthostatic hypotension Status: Acute Assessment and Plan: The patient has a history of having orthostatic hypotension. The patient stated that he was sitting conversing normally when he had sudden syncopal episode. CXR clear. CT brain showing old CVA but no acute findings. Consider dysrhythmia but nothing on telemetry and old loop recorder report did not show any dysrhythmias. Hypoglycemia unlikely with glucose 460 in the field. Seizure possible but not seen at the time and no post-event confusion or incontinence. Spoke with cardiology who state this is long standing syncope with extensive workup without clear etiology despite Loop recorder. [place] symptoms related to mild dehydration from marked hyperglycemia associated with his autonomic dysfunction. Mild orthostatic drop in SBP (176 to 151 and 166 to 136). Mo hose started. (2) Severe hyperglycemia due to diabetes mellitus: Code(s): E11.65 - Type 2 diabetes mellitus with hyperglycemia Status: Acute Assessment and Plan: A1c 9.7. The patient has DM with retinopathy, nephropathy and neuropathy. Glucose poorly controlled prior to the syncopal event and up to 460 after the event. Glucose elevated here but better controlled into the 200's now. Has been having elevated glucose at home. health educator has seen the patient. We continued sliding scale insulin and Lantus but decrease dose per hospital educator recommendations. We continued with the patient's Neurontin. (3) Elevated troponin: Code(s): R79.89 - Other specified abnormal findings of blood chemistry Status: Acute Assessment and Plan: Troponin elevated at 0.075 but flat. Patient has chronically elevated troponin noted on chart review. The patient has no complaints of any chest pain. Cardiology followed along. We continued ASA, Lipitor, and Lopressor. (4) Chronic kidney disease: Qualifiers: Chronic kidney disease stage: stage 3 (moderate) Qualified Code(s): N18.3 - Chronic kidney disease, stage 3 (moderate) Code(s): N18.9 - Chronic kidney disease, unspecified Status: Chronic Assessment and Plan: Cr 1.7 on admission. Baseline Cr is a wide range from 1.0-1.7. Suspect patient dehydrated from his hyperglycemia. Cr dropped to 1.1 with IV fluids. (5) Paroxysmal atrial fibrillation: Code(s): I48.0 - Paroxysmal atrial fibrillation Status: Chronic Assessment and Plan: EKG showing normal sinus rhythm. Loop recorder in the past did reveal pAFib. He is not on any anticoagulation due to his fall risk. No significant issues on telemetry.. DS: Summary Hospital Course Reason for hospitalization: 65yo male here for hyperglycemia and syncope. Please see H&P for details. Hospital Course: Please see above for details of hospital course. Status at Discharge Cognitive/behavioral status at discharge: stable Time Spent with Patient Time attestation: Total time spent providing and/or coordinating discharge services: 38 minutes Time spent: Greater than 30 minutes Exam Narrative: Exam Narrative: AF 97.8 178/86 85 16 97% ra Gen - NARD Chest - CTA bilaterally, nml RR CV - RRR S1/S2. Telemetry showing no significant dysrhythmias. Abd - Soft, NT/ND, Positive BS Ext - No pedal edema; Mo hose in place Psych - Nml mood and affect Skin - Warm and dry DS: Data Data Completed and Pending Labs on day of discharge: Labs from last 24 hours 06/26/20 06/26/20 06/26/20 11:41 07:57 04:54 Sodium 141 Potassium 3.4 Chloride 101 Carbon Dioxide 36 H Anion Gap 4 L BUN 17 Creatinine 1.10 Estim Creat Clear Calc 83 Estimated GFR > 60 Glucose 213 H POC Capillary Glucose
== END 2020-06-26 15:00 | disposition home or self-care (01) ==
LOC: ANHED 06-25 00:40 → ANHIMU 06-25 00:41
PROVIDERS: Nurse Practitioner; Admitting Provider Family Medicine; Emergency Provider Emergency Medicine; PCP Family Medicine; Visit Provider Internal Medicine
DX: I95.1 Orthostatic hypotension (principal); E11.65 Type 2 diabetes mellitus with hyperglycemia; E11.42 Type 2 diabetes mellitus with diabetic polyneuropathy; E11.319 Type 2 diabetes mellitus with unspecified diabetic retinopathy without macular edema; E11.22 Type 2 diabetes mellitus with diabetic chronic kidney disease; I48.91 Unspecified atrial fibrillation; I25.2 Old myocardial infarction; I12.9 Hypertensive chronic kidney disease with stage 1 through stage 4 chronic kidney disease, or unspecified chronic kidney disease; N18.30 Chronic kidney disease, stage 3 unspecified; R79.89 Other specified abnormal findings of blood chemistry; Z86.73 Personal history of transient ischemic attack (TIA), and cerebral infarction without residual deficits; Z79.4 Long term (current) use of insulin
CPT/HCPCS: 36415; 36600; 70450; 71045; 80048; 80053; 81001; 82375; 82533; 82805; 82948; 83036; 83050; 83605; 83735; 84443; 84484; 85025; 85610; 85730; 93005; 96361; 96374; 99285; A9270; G0378; G0379; J1815; J7030; J7120

== ENCOUNTER 2020-07-18 16:44 | Emergency (ER) | payer MEDICAID, SELFPAY ==
[2020-07-18] VITALS (32 sets, daily range): BP systolic 147–189; BP diastolic 58–91; PULSE 90–106; RESP 11–24; TEMP 37; O2SAT 93–99
[2020-07-18] MEDS: SODIUM CHLORIDE 0.9% IV 1,000 ML 999 ML IV CONT (17:49)
--- NOTE | 2020-07-18 17:49 | PC.NURSE ---
PT STATES UNABLE TO URINATE AT THIS TIME
[2020-07-18 17:53] LABS: Basophils Absolute Auto 0.1 K/mm3 (0.0-0.1); Basophils Percent Auto 0.8 % (0.2-1.2); Eosinophils Absolute Auto 0.1 K/mm3 (0-0.3); Eosinophils Percent Auto 1.6 % (0-4.4); Hematocrit 36.5 % (42.0-52.0); Hemoglobin 11.8 g/dL (14.0-18.0); Immature Granulocyte Absolute 0.04 K/mm3 (0.00-0.031); Immature Granulocyte Percent A 0.5 % (0-0.5); Lymphocytes Absolute Auto 1.57 K/mm3 (0.9-3.2); Lymphocytes Percent Auto 19.8 % (18.3-44.2); Mean Corpuscular HGB Conc 32.3 g/dl (32-36); Mean Corpuscular Hemoglobin 30.5 pg (26-34); Mean Corpuscular Volume 94.3 fl (80-100); Monocytes Absolute Auto 0.5 K/mm3 (0.1-0.6); Monocytes Percent Auto 5.8 % (2.6-8.5); Neutrophils Absolute Auto 5.7 K/mm3 (1.3-6.7); Neutrophils Percent Auto 71.5 % (45.5-73.1); Platelet Count Result 201 k/mm3 (150-375); Red Blood Count 3.87 M/mm3 (4.6-6.20); Red Cell Distribution Width 14.4 % (11.5-14.5); White Blood Count 7.9 K/mm3 (4.5-10.0)
[2020-07-18 18:11] LABS: Alanine Aminotransferase 41 U/L (4-50); Alkaline Phosphatase 151 U/L (38-126); Anion Gap 9 mmol/L (8-16); Aspartate Amino Transferase 76 U/L (17-59); Beta-Hydroxybutyrate/Acetoacetate 0.18 mmol/L (0.02-0.27); Bilirubin,Total 0.6 mg/dL (0.2-1.3); Blood Urea Nitrogen 20 mg/dL (9-20); Calcium 8.4 mg/dL (8.4-10.2); Carbon Dioxide 28 mmol/L (22-30); Chloride 94 mmol/L (98-107); Estimated CRCL calculation 61 ml/min; Estimated Glomerular Filt Rate 55; Glucose 550 mg/dL (75-110); Magnesium 1.7 mg/dL (1.6-2.3); Phosphorus 3.8 mg/dL (2.5-4.5); Potassium 4.6 mmol/L (3.4-5.0); Sodium 131 mmol/L (137-145)
[2020-07-18] MEDS: INSULIN HUMAN REGULAR (*BKC) 100 UNITS/ML 10 UNITS IV PUSH (18:22)
[2020-07-18 18:42] LABS: Add Urine Microscopic? YES; Appearance Urine Clear (Clear); Bacteria Urine Trace /hpf; Bilirubin Urine Negative (Negative); Blood Urine Negative (Negative); Color Urine Straw (Yellow); Glucose Urine UA 3+ mg/dL (Negative); Ketones Urine Negative (Negative); Leukocyte Esterase Ur Negative LEU/UL (Negative); Nitrate Urine Negative (Negative); Protein Urine 2+ mg/dL (Negative); RBC Urine 0-2 /hpf (0-2); Specific Grav Ur 1.023 (1.001-1.035); Squamous Epithelial Cell Urine Rare /hpf (Few); Urobilinogen Urine Negative mg/dL (<2.0); WBC Urine 0-3 /hpf
[2020-07-18 18:56] LABS: Glucose Point of Care 494 mg/dl (65-105)
--- NOTE | 2020-07-18 19:10 | PC.NURSE ---
Report received from KEELY Tom. Assumed care of patient at this time.
[2020-07-18 21:03] LABS: Glucose Point of Care 438 mg/dl (65-105)
--- NOTE | 2020-07-18 21:03 | PC.NURSE ---
Patients bedside glucose is 438.
--- NOTE | 2020-07-18 21:04 | PC.NURSE ---
pt walked with standy assistance with staff intervention. pt walked about 50 feet
--- NOTE | 2020-07-18 22:07 | ED.GENADULT ---
HPI - General Adult General Chief complaint: Recheck/Abnormal Lab/Rx Stated complaint: high blood sugar Time Seen by Provider: 07/18/20 16:54 History of Present Illness HPI narrative: Patient is a 65-year-old male who presents ER with elevated blood sugars. Patient reports his blood sugar was 275 prior to eating. He then gave himself 20 units of insulin and had barbecued beef. About an hour later he started to feel lightheaded and checked his blood sugar and just read high. He did not take any additional insulin. He opted to come to the ER for further evaluation. This is happened to him previously. No chest pain or chest pressure. Reports he gets a little bit lightheaded if he goes from sitting to standing. No loss consciousness. No focal numbness or weakness related to his symptoms. No alleviating factors that he can report. Related Data Home Medications Medication Instructions Recorded Confirmed aspirin [Aspirin Low Dose] 81 mg PO DAILY 01/08/19 06/25/20 atorvastatin 40 mg PO HS 01/08/19 06/25/20 gabapentin 400 mg PO TID 01/08/19 06/25/20 insulin aspart U-100 [Novolog 1 sliding scale dose SUBCUT TIDWM 01/08/19 06/25/20 U-100 Insulin aspart] metoprolol tartrate 25 mg PO Q12H 01/08/19 06/25/20 insulin aspart U-100 [Novolog 20 units SUBCUT TIDWM 10/31/19 06/25/20 U-100 Insulin aspart] Allergies Allergy/AdvReac Type Severity Reaction Status Date / Time No Known Allergies Allergy Verified 07/18/20 16:51 Review of Systems Review of Systems: All systems reviewed & are unremarkable except as noted in HPI and below Constitutional: Constitutional: Denies chills, Denies fever(s) and Denies weakness Comments: lightheadedness Cardiovascular: Cardiovascular: Denies chest pain and Denies radiating jaw, neck or arm pain Respiratory: Respiratory: Denies cough and Denies dyspnea Gastrointestinal: Gastrointestinal: Denies abdominal pain, Denies nausea and Denies vomiting Neurologic: Denies syncope, Denies headache(s), Denies focal weakness and Denies numbness [facility] Past Medical History Medical History (Updated 07/18/20 @ 22:09 by Benton Zavala MD) Arthritis CAD (coronary artery disease) Negative stress test 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 Diabetic nephropathy Diabetic retinopathy S/p retinal surgery Diastolic dysfunction Noted on prior echocardiogram but most recent echocardiogram demonstrating hyperdynamic left ventricle with EF greater than 70% with no mention of diastolic dysfunction Essential hypertension History of angina Hyperlipidemia Kidney stones NSTEMI (non-ST elevated myocardial infarction) With chronic troponin elevation Orthostatic hypotension Paroxysmal atrial fibrillation Not on anticoagulation due to high has bled score/high fall risk Peripheral neuropathy Surgical History Surgical History History of cholecystectomy History of loop recorder patient states that it no longer works. Status post cataract extraction of both eyes with insertion of intraocular lens Family History Family History Sibling Hypertension Father Polycystic kidney disease Colon cancer Diabetes mellitus Prostate carcinoma Mother Cerebrovascular accident CHF (congestive heart failure) Diabetes mellitus Acute myocardial infarction Social History Social History Social History: Mr. Cortez lives alone in an apartment complex for seniors. He does not drive due to his poor vision, however he is able to perfo
[2020-07-20 08:15] LABS: Glucose Point of Care > 500 mg/dl (65-105)
== END 2020-07-18 22:29 | disposition home or self-care (01) ==
PROVIDERS: Emergency Provider Emergency Medicine; PCP Family Medicine
DX: E11.65 Type 2 diabetes mellitus with hyperglycemia (principal); E11.22 Type 2 diabetes mellitus with diabetic chronic kidney disease; I12.9 Hypertensive chronic kidney disease with stage 1 through stage 4 chronic kidney disease, or unspecified chronic kidney disease; N18.30 Chronic kidney disease, stage 3 unspecified; E11.43 Type 2 diabetes mellitus with diabetic autonomic (poly)neuropathy; E11.319 Type 2 diabetes mellitus with unspecified diabetic retinopathy without macular edema; E78.5 Hyperlipidemia, unspecified; I25.10 Atherosclerotic heart disease of native coronary artery without angina pectoris; I25.2 Old myocardial infarction; I48.0 Paroxysmal atrial fibrillation; D64.9 Anemia, unspecified; M19.90 Unspecified osteoarthritis, unspecified site; Z79.82 Long term (current) use of aspirin; Z79.4 Long term (current) use of insulin; Z87.442 Personal history of urinary calculi
CPT/HCPCS: 36415; 80053; 81001; 82010; 82948; 83735; 84100; 85025; 96361; 96374; 99284; J1815; J7030

== ENCOUNTER 2020-08-20 21:51 | Observation (INO) | payer MEDICAID, SELFPAY ==
--- NOTE | ~2020-08-20 | CT_ITS ---
EXAMINATION: CT abdomen pelvis w con DATE: 08/20/2020 23:41 INDICATION: Nausea and vomiting. TECHNIQUE: Computed tomography (CT) of the abdomen and pelvis was performed with 100 mL Omnipaque 350 intravenous contrast. Automated exposure control and iterative reconstruction technique were employe d. The dose-length product was 1263.31 mGy-cm. COMPARISON: CT abdomen and pelvis 09/29/2019 FINDINGS: The visualized portions of the lung bases demonstrate mild atelectasis and mild chronic mely g disease. No pleural effusion. The heart size is normal. There are coronary artery calcifications. N o pericardial effusion. There is bilateral gynecomastia. The liver is normal. There are changes of ch olecystectomy. Calcifications in the spleen are consistent with old granulomatous disease. The pancre as, adrenal glands, and kidneys are normal. The prostate is mildly enlarged. There is diverticulosis of the colon without evidence of diverticulitis. There are no dilated loops of bowel. The appendix is normal. There is periportal and aortocaval lymphadenopathy. For example, a periportal node measures 3.6 x 1.7 cm. There is no free intraperitoneal fluid. There is moderate lumbar spondylosis. There are bridging endplate osteophytes at multiple levels in the spine, consistent with diffuse idiopathic sk eletal hyperostosis (DISH). IMPRESSION: 1. Chronic periportal lymphadenopathy, likely reactive. Reviewed, dictated and finalized at location A.
--- NOTE | ~2020-08-20 | XR_ITS ---
XR chest 2V 08/23/2020 10:49 Indication: CHF. Procedure: PA and lateral views of the chest Comparison: Comparison to multiple prior studies sequentially, with oldest reviewed study dated 11/20. Findings: Borderline heart size. Bibasilar atelectasis. No focal pneumonia, edema or effusion. No pne umothorax. No acute osseous abnormality. Impression: 1: Bibasilar atelectasis. Reviewed, dictated and finalized at location A. Impression: 1: Bibasilar atelectasis.
[2020-08-20 21:53] VITALS: PULSE 99; RESP 18; O2SAT 95
[2020-08-20 21:59] VITALS: BP 194/77
[2020-08-20 22:04] LABS: Glucose Point of Care 282 mg/dl (65-105)
--- NOTE | 2020-08-20 22:11 | ED.NAVMDI ---
HPI - Nausea/Vomiting/Diarrhea History of Present Illness HPI Narrative: Nausea and vomiting since about 11 AM. He reports that he has not been able to keep anything down all day. He is now feeling week and dizzy. No abdomainl pain, chest pain, diarrhea, dysuria, hematuria, fever. Related Data Home Medications Medication Instructions Recorded Confirmed aspirin [Aspirin Low Dose] 81 mg PO DAILY 01/08/19 08/21/20 atorvastatin 40 mg PO HS 01/08/19 08/21/20 gabapentin 400 mg PO TID 01/08/19 08/21/20 insulin aspart U-100 [Novolog 1 sliding scale dose SUBCUT TIDWM 01/08/19 08/21/20 U-100 Insulin aspart] metoprolol tartrate 25 mg PO Q12H 01/08/19 08/21/20 insulin aspart U-100 [Novolog 20 units SUBCUT TIDWM 10/31/19 08/21/20 U-100 Insulin aspart] Allergies Allergy/AdvReac Type Severity Reaction Status Date / Time No Known Allergies Allergy Verified 08/20/20 22:00 Review of Systems Review of Systems: All systems reviewed & are unremarkable except as noted in HPI and below Neurologic: Reports dizziness and Reports weakness PMFSH Past Medical History Medical History (Updated 08/21/20 @ 06:11 by Jam Graf MD) Arthritis CAD (coronary artery disease) Negative stress test November 2018 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 Diabetic nephropathy Diabetic retinopathy S/p retinal surgery Diastolic dysfunction Noted on prior echocardiogram but most recent echocardiogram demonstrating hyperdynamic left ventricle with EF greater than 70% with no mention of diastolic dysfunction Essential hypertension History of angina Hyperlipidemia Kidney stones NSTEMI (non-ST elevated myocardial infarction) With chronic troponin elevation Orthostatic hypotension Paroxysmal atrial fibrillation Not on anticoagulation due to high has bled score/high fall risk Peripheral neuropathy Surgical History Surgical History History of cholecystectomy History of loop recorder patient states that it no longer works. Status post cataract extraction of both eyes with insertion of intraocular lens Family History Family History Sibling Hypertension Father Polycystic kidney disease Colon cancer Diabetes mellitus Prostate carcinoma Mother Cerebrovascular accident CHF (congestive heart failure) Diabetes mellitus Acute myocardial infarction Social History Social History Social History: Mr. Cortez lives alone in an apartment complex for seniors. He does not drive due to his poor vision, however he is able to perform his ADLs independently. He is retired from the [employer]. He designates his sister, Yaz as his surrogate decision maker and he wishes to be a full code. He has 2 daughters who are relatively healthy. He is . Smoking status: Never smoker Second hand tobacco smoke exposure: Yes Alcohol intake: never Substance use: never Additional living arrangements comments: The patient is currently living alone. He had been placed in a half-way for 3 years previously until he had corrective surgery for vision loss associated with his diabetes. He was discharged from half-way December 2017. Additional occupation/education comments: He is retired from a [employer] where he worked for 35 years. He is now on disability following injuries associated with his diabetes. Gender identity (if verbalized by the patient): Male Spiritual care concerns: No Agree to blood products: Yes Exam Const:
--- NOTE | 2020-08-20 22:15 | ECG_ITS ---
Measurements Intervals [place] Rate: 86 P: 46 NM: 176 QRS: 89 QRSD: 106 T: 254 QT: 380 QTc: 456 Interpretive Statements SINUS RHYTHM ST-T WAVE ABNORMALITY IN ANTEROLAT/INF LEADS- CONSIDER ISCHEMIA ABNORMAL ECG Electronically Signed On 08-21-2020 7:42:37 CDT by Colin Moreland D.O.
[2020-08-20] MEDS: ONDANSETRON INJ 4 MG/2 ML VIAL IV PUSH (22:30)
[2020-08-20] MEDS: SODIUM CHLORIDE 0.9% IV 1,000 ML 999 ML IV CONT (22:32)
[2020-08-20 23:08] LABS: Basophils Absolute Auto 0.1 K/mm3 (0.0-0.1); Basophils Percent Auto 0.6 % (0.2-1.2); Eosinophils Absolute Auto 0.1 K/mm3 (0-0.3); Eosinophils Percent Auto 0.7 % (0-4.4); Hematocrit 35.9 % (42.0-52.0); Immature Granulocyte Absolute 0.03 K/mm3 (0.00-0.031); Immature Granulocyte Percent A 0.4 % (0-0.5); Lymphocytes Absolute Auto 1.57 K/mm3 (0.9-3.2); Mean Corpuscular HGB Conc 33.4 g/dl (32-36); Mean Corpuscular Hemoglobin 30.5 pg (26-34); Mean Corpuscular Volume 91.1 fl (80-100); Mean Platelet Volume 10.7 fl (7.4-10.4); Monocytes Absolute Auto 0.5 K/mm3 (0.1-0.6); Monocytes Percent Auto 6.4 % (2.6-8.5); Neutrophils Percent Auto 72.9 % (45.5-73.1); Platelet Count Result 204 k/mm3 (150-375); Red Blood Count 3.94 M/mm3 (4.6-6.20); Red Cell Distribution Width 13.9 % (11.5-14.5); White Blood Count 8.3 K/mm3 (4.5-10.0)
[2020-08-20 23:22] LABS: Alanine Aminotransferase 29 U/L (4-50); Albumin Level 4.2 g/dL (3.5-5.1); Alkaline Phosphatase 134 U/L (38-126); Anion Gap 11 mmol/L (8-16); Aspartate Amino Transferase 60 U/L (17-59); Bilirubin,Total 0.3 mg/dL (0.2-1.3); Blood Urea Nitrogen 22 mg/dL (9-20); Calcium 9.1 mg/dL (8.4-10.2); Carbon Dioxide 29 mmol/L (22-30); Chloride 97 mmol/L (98-107); Estimated CRCL calculation 57 ml/min; Estimated Glomerular Filt Rate 51; Glucose 270 mg/dL (75-110); Lipase 35 U/L (23-300); Potassium 4.3 mmol/L (3.4-5.0); Sodium 137 mmol/L (137-145)
[2020-08-21] VITALS (14 sets, daily range): BP systolic 157–190; BP diastolic 61–89; PULSE 76–100; RESP 15–26; TEMP 36.6–37.2; O2SAT 91–98
[2020-08-21 00:27] LABS: Add Urine Microscopic? YES; Appearance Urine Clear (Clear); Bilirubin Urine Negative (Negative); Blood Urine 1+ (Negative); Color Urine Yellow (Yellow); Glucose Urine UA 3+ mg/dL (Negative); Ketones Urine Negative (Negative); Leukocyte Esterase Ur Negative LEU/UL (Negative); Mucus Urine Rare /lpf; Nitrate Urine Negative (Negative); Protein Urine 3+ mg/dL (Negative); RBC Urine 0-2 /hpf (0-2); Specific Grav Ur 1.021 (1.001-1.035); Squamous Epithelial Cell Urine Rare /hpf (Few); Urobilinogen Urine Negative mg/dL (<2.0); WBC Urine 0-3 /hpf
[2020-08-21] MEDS: LABETALOL HCL INJ 100 MG/20 ML VIAL 20 MG IV PUSH (02:48)
--- NOTE | 2020-08-21 04:02 | PM.IMHP ---
H&P: HPI History of Present Illness Date/Time: 08/21/20 04:02 Chief Complaint: NAUSEA AND VOMITING Narrative: THIS IS A 65-YEAR-OLD MALE WITH PAST MEDICAL HISTORY SIGNIFICANT FOR TYPE 2 DIABETES MELLITUS INSULIN DEPENDENT, HYPERTENSION, DYSLIPIDEMIA, PERIPHERAL NEUROPATHY,DIABETIC RETINOPATHY. PATIENT PRESENTED TO THE EMERGENCY ROOM DUE TO NAUSEA VOMITING NO ABDOMINAL PAIN NO SHORTNESS OF BREATH NO COUGH NO SPUTUM PRODUCTION NO CHEST PAIN NO NEAR SYNCOPE NO SYNCOPE NO DIARRHEA NO LEG SWELLING. PATIENT STATES THAT HE HAS BEEN IN HIS USUAL STATE OF HEALTH UP UNTIL THIS STARTED IN THE MORNING. UPON PRESENTATION TO THE EMERGENCY ROOM PATIENT WAS FOUND TO HAVE ELEVATED BLOOD PRESSURE SYSTOLIC IN THE 220'S, HIS BLOOD SUGAR WAS IN THE 500'S. A CT OF ABDOMEN DID NOT SHOW ANY ACUTE ABNORMALITY. DECISION HAS BEEN MADE TO PLACE THE PATIENT IN OBSERVATION. Review of Systems Review of Systems: Narrative: PATIENT PRESENTED TO THE EMERGENCY ROOM DUE TO NAUSEA AND VOMITING Constitutional: Constitutional: Denies chills, Denies fatigue, Denies fever(s) and Denies weakness Eyes: Eyes: Denies change in vision ENT: Denies nasal congestion, Denies nasal discharge and Denies nasal obstruction Cardiovascular: Cardiovascular: Denies irregular heart rhythm, Denies leg edema, Denies lightheadedness, Denies radiating jaw, neck or arm pain, Denies palpitations, Denies dyspnea, Denies dyspnea on exertion and Denies orthopnea Respiratory: Respiratory: Denies cough, Denies dyspnea and Denies wheezing Gastrointestinal: Gastrointestinal: Denies abdominal pain, Denies melena, Denies hematochezia, Denies dyspepsia, Denies heartburn, Denies diarrhea, Reports nausea and Reports vomiting Genitourinary: Genitourinary: Reports no additional male genitourinary complaints Musculoskeletal: Musculoskeletal: Reports no additional musculoskeletal complaints Integumentary/Breasts: Skin/Breast: Reports system reviewed and no additional complaints, except as docu Neurologic: Reports system reviewed and no additional complaints, except as documented Psychiatric: Psychiatric: Reports no additional psychiatric complaints Endocrine: Endocrine: Reports no additional endocrine complaints Hematologic/Lymphatic: Hematologic/Lymphatic: Reports no additional hematologic/lymphatic complaints Allergic/Immunologic: Allergic/Immunologic: Reports no additional allergic/immunologic complaints PMFSH Past Medical History Medical History (Updated 08/21/20 @ 04:13 by Hermann Ware MD) Arthritis CAD (coronary artery disease) Negative stress test November 2018 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 Diabetic nephropathy Diabetic retinopathy S/p retinal surgery Diastolic dysfunction Noted on prior echocardiogram but most recent echocardiogram demonstrating hyperdynamic left ventricle with EF greater than 70% with no mention of diastolic dysfunction Essential hypertension History of angina Hyperlipidemia Kidney stones NSTEMI (non-ST elevated myocardial infarction) With chronic troponin elevation Orthostatic hypotension Paroxysmal atrial fibrillation Not on anticoagulation due to high has bled score/high fall risk Peripheral neuropathy Surgical History Surgical History History of cholecystectomy History of loop recorder patient states that it no longer works. Status post cataract extraction of both eyes with insertion of intraocular lens Family History Family History Sibling Hypertension Father Polycystic kidney disease Colon cancer Diabetes mellitus Pro
--- NOTE | 2020-08-21 04:15 | PC.NURSE ---
This patient, Jorge Alberto Cortez, was admitted to Intensive Care Unit-3. Patient/family oriented to hospital policies and general routines including ID bracelet, bed and alarms, visiting hours, pain management, procedures, bathroom and other care routines, personal items, smoking policy, room service/diet, and visiting hours. Information on how to activate the Rapid Response Team has been discussed. Patient/Family are encouraged to report perceived risks to care and to ask questions if they do not understand what they are told or what they should do.
[2020-08-21] MEDS: hydrALAZINE HCL 20 MG/ML VIAL 10 MG IV PUSH (05:39)
[2020-08-21 08:07] LABS: Glucose Point of Care 222 mg/dl (65-105)
[2020-08-21] MEDS: SODIUM CHLORIDE 0.9% IV 1,000 ML 999 ML IV CONT (08:15)
--- NOTE | 2020-08-21 08:44 | WPDINTPN ---
Progress Note: A&P Assessment and Plan (1) Hypertensive emergency without congestive heart failure: Code(s): I16.1 - Hypertensive emergency Status: Acute Assessment and Plan: Patient presented with nausea, vomiting, hypertensive urgency with systolic blood pressures in the 220s in the ER -patient was given IV labetalol with improvement -continue home metoprolol -will add amlodipine -p.r.n. hydralazine -echocardiogram has been ordered (2) Severe hyperglycemia due to diabetes mellitus: Code(s): E11.65 - Type 2 diabetes mellitus with hyperglycemia Status: Acute Assessment and Plan: Patient remains hypovolemic with dry oral mucosa -will give additional IV fluid -continue home Lantus and sliding scale insulin -last hemoglobin A1c was 9.7 on 06/25/2020 -continue Accu-Cheks (3) Paroxysmal atrial fibrillation: Code(s): I48.0 - Paroxysmal atrial fibrillation Status: Chronic Assessment and Plan: Rate control, no anticoagulation due to high fall risk (4) Chronic kidney disease: Qualifiers: Chronic kidney disease stage: stage 3 (moderate) Qualified Code(s): N18.3 - Chronic kidney disease, stage 3 (moderate) Code(s): N18.9 - Chronic kidney disease, unspecified Status: Chronic Assessment and Plan: Patient seems to be a little dry hypovolemia, will give additional IV fluid bolus and start him on maintenance IV fluids at 50 mL/hour tele starts eating and drinking adequately -continue to monitor renal function, electrolytes and urine output -likely related to hypertensive and diabetic nephropathy Subjective Date/time seen: 08/21/20 08:44 Interval history: Patient presented with nausea, vomiting and hypertensive urgency along with hyperglycemia. Patient states he is feeling better this morning, after receiving 2 L of IV fluids in the ER. Also received IV hydralazine which improved his blood pressures. Patient currently hemodynamically stable, urine output has been low, afebrile. Denies any chest pain, shortness of breath, abdominal pain, vomiting, headaches. States he has some nausea Review of Systems Review of Systems: All systems reviewed & are unremarkable except as noted in HPI and below Constitutional: Constitutional: Denies chills, Denies fatigue, Denies fever(s) and Reports weakness Eyes: Eyes: Denies change in vision ENT: Reports dizziness, Denies nasal congestion, Denies nasal discharge and Denies nasal obstruction Cardiovascular: Cardiovascular: Denies irregular heart rhythm, Denies leg edema, Denies lightheadedness, Denies radiating jaw, neck or arm pain, Denies palpitations, Denies dyspnea, Denies dyspnea on exertion and Denies orthopnea Respiratory: Respiratory: Denies cough, Denies dyspnea, Denies dyspnea on exertion and Denies wheezing Gastrointestinal: Gastrointestinal: Denies abdominal pain, Denies melena, Denies hematochezia, Denies dyspepsia, Denies heartburn, Denies diarrhea and Reports nausea Genitourinary: Genitourinary: Reports no additional male genitourinary complaints Musculoskeletal: Musculoskeletal: Reports no additional musculoskeletal complaints Integumentary/Breasts: Skin/Breast: Reports system reviewed and no additional complaints, except as docu Neurologic: Reports system reviewed and no additional complaints, except as documented, Reports dizziness and Reports weakness Psychiatric: Psychiatric: Reports no additional psychiatric complaints Endocrine: Endocrine: Reports no additional endocrine complaints, Denies fatigue and Denies palpitations Hematologic/Lymphatic: Hematologic/Lymphatic: Reports no additional hematologic/lymphatic complaints Allergic/Immunologic: Allergic/Immunologic: Reports no additional allergic/immunologic complaints and Denies wheezing Exam Const: General: cooperative, comfortable, no acute distress, well developed, alert, awake and ill appearing acutely Nutritional Appearance: av
[2020-08-21] MEDS: SODIUM CHLORIDE 0.9% IV 1,000 ML 50 ML IV CONT ×2 (09:20→20:27)
[2020-08-21] MEDS: INSULIN ASPART (*BKC) 100 UNITS/ML 20 UNITS SUB-Q ×3 (09:21→18:08)
[2020-08-21] MEDS: INSULIN GLARGINE (*BKC) 100 UNITS/ML 50 UNITS SUB-Q ×2 (09:22→20:20)
[2020-08-21] MEDS: FLUDROCORTISONE ACETATE 0.1 MG TABLET PO (09:23)
[2020-08-21] MEDS: GABAPENTIN 400 MG CAPSULE PO ×3 (09:23→18:08)
[2020-08-21] MEDS: METOPROLOL TARTRATE 25 MG TABLET PO ×2 (09:23→20:21)
[2020-08-21] MEDS: ONDANSETRON INJ 4 MG/2 ML VIAL IV PUSH (09:57)
[2020-08-21] MEDS: amLODIPine BESYLATE 5 MG TABLET PO (10:54)
[2020-08-21] MEDS: METOCLOPRAMIDE HCL INJ 10 MG/2 ML VIAL 5 MG IV PUSH ×3 (11:13→23:54)
[2020-08-21 11:53] LABS: Glucose Point of Care 218 mg/dl (65-105)
--- NOTE | 2020-08-21 14:11 | PC.NURSE ---
This patient, Jorge Alberto Cortez, was transferred to [facility] via bed on 08/21/20 at 1400 without issue. Personal belongings sent with patient. Report given to KEELY Rosales. Appropriate documentation sent with patient.
[2020-08-21 16:02] LABS: Glucose Point of Care 188 mg/dl (65-105)
[2020-08-21] MEDS: ATORVASTATIN 40 MG TABLET PO (20:21)
[2020-08-21 20:27] LABS: Glucose Point of Care 189 mg/dl (65-105)
[2020-08-22] VITALS (11 sets, daily range): BP systolic 166–176; BP diastolic 68–74; PULSE 82–98; RESP 16; TEMP 36.2–36.3; O2SAT 92–98
--- NOTE | 2020-08-22 | ECHO_ITS ---
Patient Info Name: Jorge Alberto Cortez Age: 65 years : 1955 Gender: Male Ht: 75 in Wt: 210 lbs BSA: 2.25 m2 HR: 87 bpm BP: 166 / 71 mmHg Heart Rhythm: Sinus Rhythm Technical Quality: Fair Exam Date: 08/22/2020 1:56 PM Exam Location: [facility] Patient Status: Inpatient Admit Date: 08/21/2020 Staff Ordering Physician: Cachorro Razo MD Dice Dealer: Mago John RDCS Attending Provider: Cachorro Razo MD Exam Type: CA echo limited Study Info Complete two-dimensional, color flow and Doppler transthoracic echocardiogram is performed with contrast to opacify the left ventricle and to improve the deliniation of the left ventricle endocardial borders. Contrast/Agitated Saline Contrast/Ag. Saline: Definity Amount: 4.00 ml Summary 1. Left ventricular chamber dimension is normal. 2. Left ventricular systolic function is normal, estimated at 65-70%. 3. There is moderately increased left ventricular wall thickness. 4. The left ventricular diastolic function is grade II diastolic dysfunction. 5. There is trace mitral valve regurgitation. 6. There is trace tricuspid valve regurgitation. 7. Mild pulmonary hypertension, estimated pulmonary arterial systolic pressure is 44 mmHg. Left Ventricle Left ventricular chamber dimension is normal. Left ventricular systolic function is normal, estimated at 65-70%. There is moderately increased left ventricular wall thickness. The left ventricular diastolic function is grade II diastolic dysfunction. Right Ventricle Right ventricular chamber dimension is normal. Right ventricular systolic function is normal. Left Atria Left atrial chamber dimension is mildly enlarged. Right Atria Right atrial chamber dimension is mildly enlarged. Aortic Valve The aortic valve is not well visualized. There is no aortic valve stenosis. There is no aortic valve regurgitation. Pulmonic Valve The pulmonic valve is not well visualized. There is trace pulmonic regurgitation. Mitral Valve The mitral valve has normal leaflets. There is trace mitral valve regurgitation. Tricuspid Valve The tricuspid valve leaflets are normal. There is trace tricuspid valve regurgitation. Mild pulmonary hypertension, estimated pulmonary arterial systolic pressure is 44 mmHg. Pericardium/Pleural The pericardium appears epicardial fat pad. There is no pericardial effusion. Inferior Vena Cava Normal inferior vena cava with >50% collapse upon inspiration consistent with normal right atrial pressure, 5 mmHg. Aorta The aortic root size at the sinus of Valsalva is normal. Left Ventricular Outflow Tract Name Value Normal LVOT Doppler LVOT Peak Velocity 184 cm/s LVOT Peak Gradient 13 mmHg LVOT Mean Gradient 7 mmHg LVOT VTI 36 cm LVOT VTI/AV VTI Ratio 1.0 Pulmonic Valve Name Value Normal PV Doppler
--- NOTE | 2020-08-22 | ECHO_ITS ---
Patient Info Name: Jorge Alberto Cortez Age: 65 years : 1955 Gender: Male Ht: 75 in Wt: 210 lbs BSA: 2.25 m2 HR: 87 bpm BP: 166 / 71 mmHg Heart Rhythm: Sinus Rhythm Technical Quality: Fair Exam Date: 08/22/2020 1:56 PM Exam Location: [facility] Pulmonary Patient Status: Inpatient Admit Date: 08/21/2020 Staff Ordering Physician: Cachorro Razo MD Ash Conveyor Operator: Mago John RDCS Attending Provider: Cachorro Razo MD Exam Type: CA echo limited Study Info Complete two-dimensional, color flow and Doppler transthoracic echocardiogram is performed with contrast to opacify the left ventricle and to improve the deliniation of the left ventricle endocardial borders. Contrast/Agitated Saline Contrast/Ag. Saline: Definity Amount: 4.00 ml Summary 1. Left ventricular chamber dimension is normal. 2. Left ventricular systolic function is normal, estimated at 65-70%. 3. There is moderately increased left ventricular wall thickness. 4. The left ventricular diastolic function is grade II diastolic dysfunction. 5. There is trace mitral valve regurgitation. 6. There is trace tricuspid valve regurgitation. 7. Mild pulmonary hypertension, estimated pulmonary arterial systolic pressure is 44 mmHg. Left Ventricle Left ventricular chamber dimension is normal. Left ventricular systolic function is normal, estimated at 65-70%. There is moderately increased left ventricular wall thickness. The left ventricular diastolic function is grade II diastolic dysfunction. Right Ventricle Right ventricular chamber dimension is normal. Right ventricular systolic function is normal. Left Atria Left atrial chamber dimension is mildly enlarged. Right Atria Right atrial chamber dimension is mildly enlarged. Aortic Valve The aortic valve is not well visualized. There is no aortic valve stenosis. There is no aortic valve regurgitation. Pulmonic Valve The pulmonic valve is not well visualized. There is trace pulmonic regurgitation. Mitral Valve The mitral valve has normal leaflets. There is trace mitral valve regurgitation. Tricuspid Valve The tricuspid valve leaflets are normal. There is trace tricuspid valve regurgitation. Mild pulmonary hypertension, estimated pulmonary arterial systolic pressure is 44 mmHg. Pericardium/Pleural The pericardium appears epicardial fat pad. There is no pericardial effusion. Inferior Vena Cava Normal inferior vena cava with >50% collapse upon inspiration consistent with normal right atrial pressure, 5 mmHg. Aorta The aortic root size at the sinus of Valsalva is normal. Left Ventricular Outflow Tract Name Value Normal LVOT Doppler LVOT Peak Velocity 184 cm/s LVOT Peak Gradient 13 mmHg LVOT Mean Gradient 7 mmHg LVOT VTI 36 cm LVOT VTI/AV VTI Ratio 1.0 Pulmonic Valve Name Value Normal PV Doppler
[2020-08-22] MEDS: METOPROLOL TARTRATE 25 MG TABLET PO (08:52)
[2020-08-22] MEDS: amLODIPine BESYLATE 5 MG TABLET PO (08:52)
[2020-08-22] MEDS: GABAPENTIN 400 MG CAPSULE PO ×3 (08:52→16:51)
[2020-08-22] MEDS: FLUDROCORTISONE ACETATE 0.1 MG TABLET PO (09:24)
[2020-08-22] MEDS: MAGNESIUM OXIDE 400 MG TABLET PO (09:24)
[2020-08-22] MEDS: INSULIN ASPART (*BKC) 100 UNITS/ML 20 UNITS SUB-Q ×3 (09:24→16:49)
[2020-08-22] MEDS: INSULIN GLARGINE (*BKC) 100 UNITS/ML 50 UNITS SUB-Q ×2 (09:25→20:24)
--- NOTE | 2020-08-22 10:08 | PM.IMPN ---
Progress Note: A&P Assessment and Plan (1) Hypertensive emergency without congestive heart failure: Code(s): I16.1 - Hypertensive emergency Status: Acute Assessment and Plan: PATIENT RECEIVED LABETALOL IN THE EMERGENCY ROOM Patient on Norvasc, metoprolol p.o., and hydralazine and labetalol IV p.r.n. Plan to increase Norvasc and metoprolol doses ECHOCARDIOGRAM pending (2) Severe hyperglycemia due to diabetes mellitus: Code(s): E11.65 - Type 2 diabetes mellitus with hyperglycemia Status: Acute Assessment and Plan: NO ANION GAP RESTART PATIENT'S HOME REGIMEN OF INSULIN ACCU-CHEKS AC AND HS INSULIN SLIDING SCALE NEEDED (3) Paroxysmal atrial fibrillation: Code(s): I48.0 - Paroxysmal atrial fibrillation Status: Chronic Assessment and Plan: RATE CONTROLLED ON NO ANTICOAGULATION Consult cardiology (4) Chronic kidney disease: Qualifiers: Chronic kidney disease stage: stage 3 (moderate) Qualified Code(s): N18.3 - Chronic kidney disease, stage 3 (moderate) Code(s): N18.9 - Chronic kidney disease, unspecified Status: Chronic Assessment and Plan: CONTINUE TO MONITOR LIKELY SECONDARY TO HYPERTENSIVE AND DIABETIC NEPHROPATHY Monitor renal function and electrolytes Subjective Date/time seen: 08/22/20 10:08 Interval history: Patient is resting in bed, complains of mild abdominal discomfort and nausea, but he denies any pain, no shortness of breath. Exam Const: General: cooperative and no acute distress HENMT: Head: normal to inspection Eyes: General: appearance normal, both eyes and all related structures Neck: Neck: normal visual inspection Chest: Chest palpation & inspection: normal inspection of the chest Resp: Effort & Inspection: normal respiratory effort Cardio: Jugular venous distension: no JVD Rate: regular rate GI: Inspection: normal to inspection and non-distended Objective Data Vital Signs Vital Signs: Vital Signs - 24 hr 08/21/20 12:00 08/21/20 14:32 08/21/20 16:00 Temperature 97.8 F Pulse Rate 87 89 89 Respiratory Rate 16 Blood Pressure 172/67 H Pulse Oximetry 94 08/21/20 18:00 08/21/20 20:00 08/21/20 20:21 Temperature Pulse Rate 90 76 Respiratory Rate 16 Blood Pressure 184/62 H Pulse Oximetry 94 08/21/20 21:30 08/22/20 00:00 08/22/20 04:00 Temperature 97.9 F Pulse Rate 89 82 83 Respiratory Rate 16 Blood Pressure 172/67 H Pulse Oximetry 91 08/22/20 05:36 08/22/20 09:08 Temperature 97.1 F L Pulse Rate 86 Respiratory Rate 16 Blood Pressure 166/71 H Pulse Oximetry 92 92 Intake/Output Intake/Output: Intake & Output 08/19/20 08/20/20 08/21/20 08/22/20 23:59 23:59 23:59 23:59 Intake Total 1000 1940 400 Output Total 400 Balance 1000 1540 400 Meds/Results Medications: Active Medications Generic Name Dose Route Start Last Admin Trade Name Freq PRN Reason Stop Dose Admin Amlodipine Besylate 5 mg 08/21/20 09:00 08/22/20 08:52 Amlodipine Besylate 5 Mg Tablet PO 5 mg QAM NIKA Administration Atorvastatin Calcium 40 mg 08/21/20 21:00 08/21/20 20:21 Atorvastatin 40 Mg Tablet PO 40 mg HS NIKA Administration Fludrocortisone Acetate 0.1 mg 08/21/20 09:00 08/22/20 09:24 Fludrocortisone Acetate 0.1 Mg Tablet PO 0.1 mg DAILY NIKA Administration Gabapentin 400 mg 08/21/20 09:00 08/22/20 08:52 Gabapentin 400 Mg Capsule PO 400 mg TID NIKA Administration Hydralazine HCl 10 mg 08/21/20 04:01 08/21/20 05:39 Hydralazine Hcl 20 Mg/Ml Vial IV PUSH 10 mg Q8H PRN Administration Blood Pressure - High Sodium Chloride 1,000 mls @ 75 mls/hr 08/21/20 08:15 08/21/20 20:27 Normal Saline Iv IV CONT 50 mls/hr .[id number] NIKA Administration Insulin Aspart 20 units 08/21/20 08:00 08/22/20 09:24 Insulin Aspart (*Bkc) 100 Units/Ml SUB-Q 09/20/20 08:01 20 units TIDWM NIKA Admin
[2020-08-22 10:10] LABS: Glucose Point of Care 205 mg/dl (65-105)
[2020-08-22 12:10] LABS: Glucose Point of Care 229 mg/dl (65-105)
[2020-08-22] MEDS: SODIUM CHLORIDE 0.9% IV 1,000 ML 75 ML IV CONT (12:23)
[2020-08-22] MEDS: METOCLOPRAMIDE HCL INJ 10 MG/2 ML VIAL 5 MG IV PUSH ×2 (12:24→17:49)
[2020-08-22 16:41] LABS: Glucose Point of Care 173 mg/dl (65-105)
[2020-08-22] MEDS: METOPROLOL TARTRATE 50 MG TAB PO (20:22)
[2020-08-22 21:21] LABS: Glucose Point of Care 159 mg/dl (65-105)
[2020-08-23] VITALS (14 sets, daily range): BP systolic 154–187; BP diastolic 62–81; PULSE 77–109; RESP 16–24; TEMP 36.3–36.6; O2SAT 90–95
[2020-08-23] MEDS: METOCLOPRAMIDE HCL INJ 10 MG/2 ML VIAL 5 MG IV PUSH ×4 (00:32→17:35)
[2020-08-23] MEDS: SODIUM CHLORIDE 0.9% IV 1,000 ML 75 ML IV CONT (00:38)
[2020-08-23] MEDS: MELATONIN 5 MG TABLET PO (01:53)
[2020-08-23 07:27] LABS: Basophils Absolute Auto 0.1 K/mm3 (0.0-0.1); Basophils Percent Auto 0.6 % (0.2-1.2); Eosinophils Absolute Auto 0.2 K/mm3 (0-0.3); Eosinophils Percent Auto 2.1 % (0-4.4); Hemoglobin 11.3 g/dL (14.0-18.0); Immature Granulocyte Absolute 0.04 K/mm3 (0.00-0.031); Immature Granulocyte Percent A 0.5 % (0-0.5); Lymphocytes Absolute Auto 1.92 K/mm3 (0.9-3.2); Mean Corpuscular HGB Conc 31.4 g/dl (32-36); Mean Corpuscular Hemoglobin 30.4 pg (26-34); Mean Corpuscular Volume 96.8 fl (80-100); Mean Platelet Volume 11.3 fl (7.4-10.4); Monocytes Absolute Auto 0.5 K/mm3 (0.1-0.6); Monocytes Percent Auto 6.2 % (2.6-8.5); Neutrophils Percent Auto 68.6 % (45.5-73.1); Platelet Count Result 180 k/mm3 (150-375); Red Blood Count 3.72 M/mm3 (4.6-6.20); Red Cell Distribution Width 14.6 % (11.5-14.5); White Blood Count 8.7 K/mm3 (4.5-10.0)
[2020-08-23 08:13] LABS: Anion Gap 10 mmol/L (8-16); Blood Urea Nitrogen 13 mg/dL (9-20); Calcium 7.9 mg/dL (8.4-10.2); Carbon Dioxide 27 mmol/L (22-30); Chloride 105 mmol/L (98-107); Estimated CRCL calculation 78 ml/min; Estimated Glomerular Filt Rate > 60; Glucose 126 mg/dL (75-110); Magnesium 1.7 mg/dL (1.6-2.3); Phosphorus 3.3 mg/dL (2.5-4.5); Potassium 3.5 mmol/L (3.4-5.0); Sodium 142 mmol/L (137-145)
[2020-08-23] MEDS: METOPROLOL TARTRATE 50 MG TAB PO ×2 (09:01→21:14)
[2020-08-23] MEDS: MAGNESIUM OXIDE 400 MG TABLET PO (09:01)
[2020-08-23] MEDS: GABAPENTIN 400 MG CAPSULE PO ×3 (09:01→16:20)
[2020-08-23] MEDS: FLUDROCORTISONE ACETATE 0.1 MG TABLET PO (09:02)
[2020-08-23 09:10] LABS: Glucose Point of Care 123 mg/dl (65-105)
[2020-08-23] MEDS: INSULIN ASPART (*BKC) 100 UNITS/ML 20 UNITS SUB-Q ×3 (09:17→16:20)
--- NOTE | 2020-08-23 10:04 | PM.IMPN ---
Progress Note: A&P Assessment and Plan (1) Hypertensive emergency without congestive heart failure: Code(s): I16.1 - Hypertensive emergency Status: Acute Assessment and Plan: PATIENT RECEIVED LABETALOL IN THE EMERGENCY ROOM Patient on Norvasc, metoprolol p.o., and hydralazine and labetalol IV p.r.n. Norvasc and metoprolol doses or increased yesterday plan to add lisinopril monitor vital signs ECHOCARDIOGRAM EF estimated at 65-70%. (2) Severe hyperglycemia due to diabetes mellitus: Code(s): E11.65 - Type 2 diabetes mellitus with hyperglycemia Status: Acute Assessment and Plan: NO ANION GAP RESTART PATIENT'S HOME REGIMEN OF INSULIN ACCU-CHEKS AC AND HS INSULIN SLIDING SCALE NEEDED (3) Paroxysmal atrial fibrillation: Code(s): I48.0 - Paroxysmal atrial fibrillation Status: Chronic Assessment and Plan: case was discussed with , who said that there is no signs or evidence of AFib patient does not recall any history of AFib EKG is sinus (4) Chronic kidney disease: Qualifiers: Chronic kidney disease stage: stage 3 (moderate) Qualified Code(s): N18.3 - Chronic kidney disease, stage 3 (moderate) Code(s): N18.9 - Chronic kidney disease, unspecified Status: Chronic Assessment and Plan: CONTINUE TO MONITOR LIKELY SECONDARY TO HYPERTENSIVE AND DIABETIC NEPHROPATHY Monitor renal function and electrolytes (5) Heart failure: Code(s): I50.9 - Heart failure, unspecified Status: Acute Assessment and Plan: Lasix beta-mark lisinopril obtain chest x-ray check BNP echo consistent with diastolic heart failure acute on chronic Subjective Date/time seen: 08/23/20 10:04 Interval history: Patient is resting in bed, complains of mild abdominal discomfort and nausea, but he denies any pain, no shortness of breath. Exam Const: General: cooperative and no acute distress HENMT: Head: normal to inspection Eyes: General: appearance normal, both eyes and all related structures Neck: Neck: normal visual inspection Chest: Chest palpation & inspection: normal inspection of the chest Resp: Effort & Inspection: normal respiratory effort Cardio: Jugular venous distension: no JVD Rate: regular rate GI: Inspection: normal to inspection and non-distended Objective Data Vital Signs Vital Signs: Vital Signs - 24 hr 08/22/20 12:00 08/22/20 14:00 08/22/20 16:00 Temperature 97.2 F L Pulse Rate 92 90 91 Respiratory Rate 16 Blood Pressure 173/68 H Pulse Oximetry 95 08/22/20 20:00 08/22/20 20:22 08/22/20 21:37 Temperature 97.3 F L Pulse Rate 85 98 98 Respiratory Rate 16 Blood Pressure 176/74 H Pulse Oximetry 98 08/23/20 00:00 08/23/20 04:00 08/23/20 06:00 Temperature 97.4 F L Pulse Rate 93 90 91 Respiratory Rate 16 Blood Pressure 154/73 H Pulse Oximetry 95 08/23/20 09:00 Temperature Pulse Rate 91 Respiratory Rate Blood Pressure 169/76 H Pulse Oximetry Intake/Output Intake/Output: Intake & Output 08/20/20 08/21/20 08/22/20 08/23/20 23:59 23:59 23:59 23:59 Intake Total 1000 1940 3540 1300 Output Total 400 250 600 Balance 1000 1540 3290 700 Meds/Results Medications: Active Medications Generic Name Dose Route Start Last Admin Trade Name Freq PRN Reason Stop Dose Admin Amlodipine Besylate 10 mg 08/23/20 09:00 Amlodipine Besylate 5 Mg Tablet PO QAM NIKA Fludrocortisone Acetate 0.1 mg 08/21/20 09:00 08/23/20 09:02 Fludrocortisone Acetate 0.1 Mg Tablet PO 0.1 mg DAILY NIKA Administration Gabapentin 400 mg 08/21/20 09:00 08/23/20 09:01 Gabapentin 400 Mg Capsule PO 400 mg TID NIKA Administration Hydralazine HCl 10 mg 08/21/20 04:01 08/21/20 05:39 Hydralazine Hcl 20 Mg/Ml Vial IV PUSH 10 mg Q8H PRN Administration Blood Pressure - High Sodium Chloride 1,000 mls @ 75 mls/hr 07/29
[2020-08-23] MEDS: amLODIPine BESYLATE 5 MG TABLET 10 MG PO (10:09)
[2020-08-23] MEDS: INSULIN GLARGINE (*BKC) 100 UNITS/ML 50 UNITS SUB-Q ×2 (10:10→21:18)
[2020-08-23 12:04] LABS: Glucose Point of Care 119 mg/dl (65-105)
[2020-08-23] MEDS: FUROSEMIDE INJ 40 MG/4 ML VIAL IV PUSH (12:12)
[2020-08-23] MEDS: lisinopriL 5 MG TABLET PO (12:12)
[2020-08-23] MEDS: FUROSEMIDE 40 MG TABLET PO (16:20)
[2020-08-23 17:40] LABS: Glucose Point of Care 101 mg/dl (65-105)
[2020-08-23 21:37] LABS: Glucose Point of Care 127 mg/dl (65-105)
[2020-08-23] MEDS: ONDANSETRON INJ 4 MG/2 ML VIAL IV PUSH (21:47)
--- NOTE | 2020-08-23 22:27 | ECG_ITS ---
Measurements Intervals [place] Rate: 77 P: 29 [place]: 181 QRS: 79 QRSD: 103 T: 196 QT: 407 QTc: 461 Interpretive Statements SINUS RHYTHM LEFT VENTRICULAR HYPERTROPHY AND ST-T CHANGE ST-T WAVE ABNORMALITY IN ANTEROLATERAL LEADS- CONSIDER ISCHEMIA BASELINE ARTIFACT- I, II, III ABNORMAL ECG Electronically Signed On 08-24-2020 6:02:37 CDT by Colin Moreland D.O.
--- NOTE | 2020-08-23 22:30 | P.PNCROSS_ITS ---
Event Note Event Note Event Note: S: I received a call from the patient's nurse with reports that t he patient was complaining of left-sided chest pain. At the time my evaluation he reports a sharp shooting pain in the left lateral chest and somewhat along the left rib cage. It is worse with movement and palpation. No shortness of breath, nausea, or sweats. O: Well-developed male reclined in bed watching television in no distress. Vitals: Blood pressure 154/62, pulse is 81, respiratory rate 24, SpO2 94%. RRR with S1,S2. Lungs are clear. Reproducible tenderness to palpation over the left lateral chest and in the mid axillary line. Abdomen is soft and nondistended. Radial and pedal pulses intact. Trace pretibial edema bilaterally. No palpable knots or cords. Negative Mindy sign. A: Atypical chest pain. He certainly has risk factors for coronary disease. Likely musculoskeletal given reproducibility. Pulmonary embolism unlikely. P: Sublingual nitroglycerin x1. Steady EKC.Monitor on telemetry. Trend troponins.
[2020-08-23] MEDS: NITROGLYCERIN SL 0.4 MG TABLET SUBLINGUAL (22:36)
[2020-08-23 23:23] LABS: Troponin I 0.076 ng/mL (0.000-0.034)
[2020-08-24] VITALS (9 sets, daily range): BP systolic 129–153; BP diastolic 48–57; PULSE 71–94; RESP 16–18; TEMP 36.7–37.1; O2SAT 90–95
[2020-08-24] MEDS: METOCLOPRAMIDE HCL INJ 10 MG/2 ML VIAL 5 MG IV PUSH ×2 (00:14→06:14)
[2020-08-24 02:06] LABS: Troponin I 0.082 ng/mL (0.000-0.034)
[2020-08-24 04:35] LABS: Basophils Absolute Auto 0.1 K/mm3 (0.0-0.1); Basophils Percent Auto 0.7 % (0.2-1.2); Eosinophils Absolute Auto 0.3 K/mm3 (0-0.3); Eosinophils Percent Auto 2.6 % (0-4.4); Hematocrit 33.8 % (42.0-52.0); Hemoglobin 10.8 g/dL (14.0-18.0); Immature Granulocyte Absolute 0.04 K/mm3 (0.00-0.031); Immature Granulocyte Percent A 0.4 % (0-0.5); Lymphocytes Absolute Auto 2.12 K/mm3 (0.9-3.2); Lymphocytes Percent Auto 22.2 % (18.3-44.2); Mean Corpuscular Hemoglobin 30.3 pg (26-34); Mean Corpuscular Volume 94.7 fl (80-100); Mean Platelet Volume 10.3 fl (7.4-10.4); Monocytes Absolute Auto 0.5 K/mm3 (0.1-0.6); Monocytes Percent Auto 5.7 % (2.6-8.5); Neutrophils Absolute Auto 6.5 K/mm3 (1.3-6.7); Neutrophils Percent Auto 68.4 % (45.5-73.1); Platelet Count Result 193 k/mm3 (150-375); Red Blood Count 3.57 M/mm3 (4.6-6.20); Red Cell Distribution Width 14.6 % (11.5-14.5); White Blood Count 9.6 K/mm3 (4.5-10.0)
[2020-08-24 04:42] LABS: Anion Gap 7 mmol/L (8-16); Blood Urea Nitrogen 13 mg/dL (9-20); Calcium 7.6 mg/dL (8.4-10.2); Carbon Dioxide 32 mmol/L (22-30); Chloride 102 mmol/L (98-107); Estimated CRCL calculation 65 ml/min; Estimated Glomerular Filt Rate > 60; Glucose 95 mg/dL (75-110); Magnesium 1.7 mg/dL (1.6-2.3); Phosphorus 3.1 mg/dL (2.5-4.5); Potassium 2.9 mmol/L (3.4-5.0); Sodium 141 mmol/L (137-145)
[2020-08-24 04:56] LABS: Troponin I 0.093 ng/mL (0.000-0.034)
[2020-08-24 09:15] LABS: Glucose Point of Care 75 mg/dl (65-105)
[2020-08-24] MEDS: GABAPENTIN 400 MG CAPSULE PO (09:17)
[2020-08-24] MEDS: MAGNESIUM OXIDE 400 MG TABLET PO (09:17)
[2020-08-24] MEDS: FUROSEMIDE 40 MG TABLET PO (09:18)
[2020-08-24] MEDS: METOPROLOL TARTRATE 50 MG TAB PO (09:23)
[2020-08-24] MEDS: amLODIPine BESYLATE 5 MG TABLET 10 MG PO (09:25)
[2020-08-24] MEDS: FLUDROCORTISONE ACETATE 0.1 MG TABLET PO (09:25)
[2020-08-24] MEDS: lisinopriL 5 MG TABLET PO (09:25)
--- NOTE | 2020-08-24 10:04 | PM.CNCAR ---
Assessment and Plan Assessment and plan (1) Elevated troponin: Code(s): R79.89 - Other specified abnormal findings of blood chemistry Status: Acute Assessment and Plan: This gentleman has a history of chronically elevated Troponins with a relatively flat curve with highly atypical, reproducible mild pain located in the left lateral ribcage consistent with musculoskeletal/noncardiac etiology. Patient presented with hypertensive urgency and acute renal insufficiency consistent type 2 infarct. EKG historically abnormal with LVH with strain no change compared to prior tracings. Patient otherwise feels fine. Echo with mod LVH, EF 65% no wall motion abnormalities largely unchanged compared to prior Echocardiograms. He has no known CAD, however, he has mild to mod Right carotid arterial stenosis and multiple risk factors for CAD. Negative Lexiscan stress test 11/27/18 no ischemia EF >70%. He follows with Dr. Kaplan (Cardiology) as an outpatient. I have advised him to follow up with Dr. Kaplan in the next 1-2 weeks upon discharge for further evaluation as warranted. No further CV workup indicated at this time. We will sign off for now. Please do not hesitate to contact us with any additional questions or concerns. Spent 61 minutes in the care of this patient at bedside and discussions, chart review, and medical decision making. (2) Chest pain: Qualifiers: Chest pain type: unspecified Qualified Code(s): R07.9 - Chest pain, unspecified Code(s): R07.9 - Chest pain, unspecified Status: Acute Assessment and Plan: As above, reproducible musculoskeletal atypical chest pain flat troponin. Management per primary service. May have been exacerbated with recurrent nausea vomiting prior to admission. (3) Hypertensive urgency: Code(s): I16.0 - Hypertensive urgency Status: Acute Assessment and Plan: BP remains elevated although improved since admission. Discussed at length my concerns with regards to ongoing use of fludrocortisone and multiple antihypertensive agents. Thoughtful consideration should be employed with change in his antihypertensive regimen as his current regimen represents a marked shift in management. While this will be deferred to the Hospitalist Service, I recommend discontinuation of fludrocortisone as this will drive up his BP. However, to maintain safety his antihypertensives should be discontinued as well as he has a longstanding history of falls and near syncope/syncope related to orthostatic hypotension. Amlodipine and Lisinopril have been added and Metoprolol increased from 25 to 50 mg twice daily. Furthermore, he has been placed on 40 mg twice daily Lasix. I do not recommend diuretic therapy so I will stop his Lasix. This is not ideal management despite efforts to control his blood pressure given the above. Furthermore, continuation of Lasix given his history of recurrent and chronic orthostatic hypotension likely secondary to autonomic dysfunction place patient in a more danger situation, in my opinion. Therefore, given his propensity for ARF in conjunction with c/o CP or abd pain which generally coincided with dehydration (upon thorough review of electronic medical record), I would discontinue Lasix and consider stopping Lisinopril particularly if any degree of orthostasis is documented. Given this patient's history, Orthostatic vital signs should be obtained. Decisions to escalate antihypertensives should not be based on supine blood pressures alone. Stop PRN IV Hydralazine. (4) Hypertensive heart disease: Code(s): I11.9 - Hypertensive heart disease without heart failure Status: Acute Assessment and Plan: patient has EKG and echo evidence of hypertensive heart disease with least moderate LVH. This is a very difficult management given his history of orthostasis as noted above. (5) Acute renal failure: Code(s): N17.9 - Acute kidney fa
--- NOTE | 2020-08-24 11:03 | PM.DS ---
DS: Admitting Diagnosis Admitting Diagnosis Admitting Diagnosis: hypertension nausea DS: Discharge Diagnosis Discharge Diagnosis (1) Hypertensive urgency: Code(s): I16.0 - Hypertensive urgency Status: Acute (2) Heart failure: Code(s): I50.9 - Heart failure, unspecified Status: Acute DS: Summary Hospital Course Reason for hospitalization: evaluation of hypertension, and nausea Hospital Course: 65-YEAR-OLD MALE WITH PAST MEDICAL HISTORY SIGNIFICANT FOR TYPE 2 DIABETES MELLITUS INSULIN DEPENDENT, HYPERTENSION, DYSLIPIDEMIA, PERIPHERAL NEUROPATHY,DIABETIC RETINOPATHY. PATIENT PRESENTED TO THE EMERGENCY ROOM DUE TO NAUSEA VOMITING NO ABDOMINAL PAIN NO SHORTNESS OF BREATH NO COUGH NO SPUTUM PRODUCTION NO CHEST PAIN NO NEAR SYNCOPE NO SYNCOPE NO DIARRHEA NO LEG SWELLING. patient had acute on chronic diastolic heart failure, along with hypertension urgency, cardiology saw the patient. beta mark was increased, Lasix was started then stopped during this hospitalization, continue low-dose lisinopril. patient understands that he needs to hold his insulin and his blood sugar were low. patient condition improved during this hospitalization, he feels better, stable, denies any active complaints, and agreeable with the plan of discharge follow up with primary care physician and Cardiology as an outpatient. Status at Discharge Functional status at discharge: independent ambulation Time Spent with Patient Time attestation: Total time spent providing and/or coordinating discharge services: Time spent: Greater than 30 minutes DS: Data Data Completed and Pending Labs on day of discharge: Labs from last 24 hours 08/24/20 08/24/20 08/24/20 09:13 04:21 04:21 WBC RBC Hgb Hct MCV MCH MCHC RDW Plt Count MPV Immature Gran % (Auto) Neut % (Auto) Lymph % (Auto) [place] % (Auto) Eos % (Auto) Baso % (Auto) Lymph # (Auto) [place] # (Auto) Eos # (Auto) Baso # (Auto) Abs Immat Gran (auto) Absolute Neuts (auto) Absolute Nucleated RBC Nucleated RBC % Sodium 141 Potassium 2.9 L Chloride 102 Carbon Dioxide 32 H Anion Gap 7 L BUN 13 Creatinine 1.20 Estim Creat Clear Calc 65 Estimated GFR > 60 Glucose 95 POC Capillary Glucose 75 Calcium 7.6 L Phosphorus 3.1 Magnesium 1.7 Troponin I 0.093 H* 08/24/20 08/24/20 08/23/20 04:21 01:29 22:43 WBC 9.6 RBC 3.57 L Hgb 10.8 L Hct 33.8 L MCV 94.7 MCH 30.3 MCHC 32.0 RDW 14.6 H Plt Count 193 MPV 10.3 Immature Gran % (Auto) 0.4 Neut % (Auto) 68.4 Lymph % (Auto) 22.2 [place] % (Auto) 5.7 Eos % (Auto) 2.6 Baso % (Auto) 0.7 Lymph # (Auto) 2.12 [place] # (Auto) 0.5 Eos # (Auto) 0.3 Baso # (Auto) 0.1 Abs Immat Gran (auto) 0.04 H Absolute Neuts (auto) 6.5 Absolute Nucleated RBC 0.0 Nucleated RBC % 0.0 Sodium Potassium Chloride Carbon Dioxide Anion Gap BUN Creatinine Estim Creat Clear Calc Estimated GFR Glucose POC Capillary Glucose Calcium Phosphorus Magnesium Troponin I 0.082 H* 0.076 H* 08/23/20 08/23/20 08/23/20 21:13 16:18 11:59 WBC RBC Hgb Hct MCV MCH MCHC RDW Plt Count MPV Immature Gran % (Auto) Neut % (Auto) Lymph % (Auto) [place] % (Auto) Eos % (Auto) Baso % (Auto) Lymph # (Auto) [place] # (Auto) Eos # (Auto) Baso # (Auto) Abs Immat Gran (auto) Absolute Neuts (auto) Absolute Nucleated RBC Nucleated RBC % Sodium Potassium Chloride Carbon Dioxide Anion Gap BUN Creatinine Estim Creat Clear Calc Estimated GFR Glucose POC Capillary Glucose 127 H 101 119 H Calcium Phosphorus Magnesium Troponin I Discharge Plan Discharge Consulting providers: Rey Marquez
== END 2020-08-24 11:30 | disposition home or self-care (01) ==
LOC: ANHED 22:15 → ANHICU 08-21 02:43 → ANH2MED 08-21 14:21
PROVIDERS: Physician Assistant; Admitting Provider Internal Medicine; Emergency Provider Emergency Medicine; PCP Family Medicine; Visit Provider Emergency Medicine
DX: I16.0 Hypertensive urgency (principal); I50.9 Heart failure, unspecified; I13.0 Hypertensive heart and chronic kidney disease with heart failure and stage 1 through stage 4 chronic kidney disease, or unspecified chronic kidney disease; N17.9 Acute kidney failure, unspecified; R11.2 Nausea with vomiting, unspecified; E11.65 Type 2 diabetes mellitus with hyperglycemia; E11.22 Type 2 diabetes mellitus with diabetic chronic kidney disease; E11.319 Type 2 diabetes mellitus with unspecified diabetic retinopathy without macular edema; E11.42 Type 2 diabetes mellitus with diabetic polyneuropathy; E78.5 Hyperlipidemia, unspecified; I95.1 Orthostatic hypotension; I65.21 Occlusion and stenosis of right carotid artery; I25.2 Old myocardial infarction; I48.91 Unspecified atrial fibrillation; N18.30 Chronic kidney disease, stage 3 unspecified; R79.89 Other specified abnormal findings of blood chemistry; R07.89 Other chest pain; Z86.73 Personal history of transient ischemic attack (TIA), and cerebral infarction without residual deficits; Z79.4 Long term (current) use of insulin
CPT/HCPCS: 36415; 71046; 74177; 80048; 80053; 81001; 82948; 83690; 83735; 84100; 84484; 85025; 93005; 93308; 96361; 96374; 96375; 96376; 99285; A9270; C8929; G0378; G0379; J0360; J1815; J1940; J2405; J2765; J7030; J7050; Q9957; Q9967

== ENCOUNTER 2020-09-29 20:20 | Emergency (ER) | payer MEDICAID, SELFPAY ==
[2020-09-29] VITALS (10 sets, daily range): BP systolic 152–185; BP diastolic 72–81; PULSE 78–100; RESP 12–21; TEMP 37.2; O2SAT 95–99
[2020-09-29 20:39] LABS: Glucose Point of Care 416 mg/dl (65-105)
--- NOTE | 2020-09-29 20:43 | ECG_ITS ---
Measurements Intervals [place] Rate: 94 P: -15 AL: 171 QRS: 85 QRSD: 110 T: 252 QT: 377 QTc: 474 Interpretive Statements SINUS RHYTHM ATRIAL PREMATURE COMPLEXES INTRAVENTRICULAR CONDUCTION DELAY ST-T WAVE ABNORMALITY IN ANTEROLAT/INF LEADS- CONSIDER ISCHEMIA BASELINE ARTIFACT- AVL, AVF, V1, V3-V6 ABNORMAL ECG Electronically Signed On 09-29-2020 21:04:51 CDT by Colin Moreland D.O.
--- NOTE | 2020-09-29 20:44 | PC.NURSE ---
Dr Ortega at bedside
[2020-09-29 21:25] LABS: Basophils Absolute Auto 0.1 K/mm3 (0.0-0.1); Basophils Percent Auto 0.9 % (0.2-1.2); Eosinophils Absolute Auto 0.2 K/mm3 (0-0.3); Eosinophils Percent Auto 2.7 % (0-4.4); Hematocrit 34.2 % (42.0-52.0); Hemoglobin 11.3 g/dL (14.0-18.0); Immature Granulocyte Absolute 0.05 K/mm3 (0.00-0.031); Immature Granulocyte Percent A 0.8 % (0-0.5); Lymphocytes Absolute Auto 1.87 K/mm3 (0.9-3.2); Lymphocytes Percent Auto 28.4 % (18.3-44.2); Mean Platelet Volume 10.7 fl (7.4-10.4); Monocytes Absolute Auto 0.4 K/mm3 (0.1-0.6); Monocytes Percent Auto 5.6 % (2.6-8.5); Neutrophils Absolute Auto 4.1 K/mm3 (1.3-6.7); Neutrophils Percent Auto 61.6 % (45.5-73.1); Platelet Count Result 199 k/mm3 (150-375); Red Blood Count 3.64 M/mm3 (4.6-6.20); Red Cell Distribution Width 13.9 % (11.5-14.5); White Blood Count 6.6 K/mm3 (4.5-10.0)
[2020-09-29] MEDS: INSULIN HUMAN REGULAR (*BKC) 100 UNITS/ML 10 UNITS IV PUSH (21:31)
[2020-09-29 21:37] LABS: Anion Gap 9 mmol/L (8-16); Blood Urea Nitrogen 26 mg/dL (9-20); Calcium 8.2 mg/dL (8.4-10.2); Carbon Dioxide 29 mmol/L (22-30); Chloride 98 mmol/L (98-107); Estimated CRCL calculation 52 ml/min; Estimated Glomerular Filt Rate 38; Glucose 418 mg/dL (65-110); Potassium 3.6 mmol/L (3.4-5.0); Sodium 136 mmol/L (137-145)
[2020-09-29 21:42] LABS: Beta-Hydroxybutyrate/Acetoacetate 0.11 mmol/L (0.02-0.27)
[2020-09-29 21:55] LABS: Glucose Point of Care 364 mg/dl (65-105)
[2020-09-29] MEDS: LACTATED RINGERS 1,000 ML 999 ML IV CONT (21:55)
[2020-09-29] MEDS: INSULIN HUMAN REGULAR (*BKC) 100 UNITS/ML IV PUSH (22:05)
--- NOTE | 2020-09-29 22:11 | PC.NURSE ---
Pt glucose recheck was 364 post 10 units IV insulin and 1 liter of NS that was hung by EMS and per OK to finish. MD aware of new blood sugar. Orders entered for an additional 5 units IV. Started LR.
[2020-09-29 22:28] LABS: Glucose Point of Care 320 mg/dl (65-105)
[2020-09-29 23:31] LABS: Glucose Point of Care 277 mg/dl (65-105)
--- NOTE | 2020-09-30 00:04 | ED.RECABL ---
HPI - Recheck/Abnormal Lab/Rx General Chief Complaint: Recheck/Abnormal Lab/Rx Stated Complaint: hyperglycemia Time Seen by Provider: 09/29/20 20:38 Source: patient Mode of arrival: ambulatory Limitations: no limitations History of Present Illness HPI narrative: 65-year-old male Complains of feeling mildly and generally weak and a little dizzy Checked his blood sugar today and it was 470 He reports he has been very compulsive about taking his Lantus 70 units every evening and regular insulin 20 units at mealtime which she occasionally adjusts slightly upward He has not had a fever or a cough or really any specific symptoms of a illness, vomiting or diarrhea, no urinary symptoms, Review of his recent hospital discharge paperwork indicates that he was supposed to be taking a total of 100 units a day of Lantus in divided doses Related Data Home Medications Medication Instructions Recorded Confirmed aspirin [Aspirin Low Dose] 81 mg PO DAILY 01/08/19 08/21/20 atorvastatin 40 mg PO HS 01/08/19 08/21/20 gabapentin 400 mg PO TID 01/08/19 08/21/20 metoprolol tartrate 25 mg PO Q12H 01/08/19 08/21/20 insulin aspart U-100 [Novolog 20 units SUBCUT TIDWM 10/31/19 08/21/20 U-100 Insulin aspart] Allergies Allergy/AdvReac Type Severity Reaction Status Date / Time No Known Allergies Allergy Verified 09/29/20 20:42 Review of Systems Review of Systems: All systems reviewed & are unremarkable except as noted in HPI and below Constitutional: Constitutional: Reports no additional constitutional complaints, Denies chills, Reports fatigue, Denies fever(s), Denies headache(s) and Reports weakness Eyes: Eyes: Reports no additional eye complaints and Denies change in vision ENT: Denies headache(s) and Denies sore throat Cardiovascular: Cardiovascular: Denies chest pain and Denies dyspnea Respiratory: Respiratory: Denies cough and Denies dyspnea Gastrointestinal: Gastrointestinal: Denies abdominal pain, Denies diarrhea and Denies vomiting Genitourinary: Genitourinary: Denies dysuria and Denies urinary frequency Musculoskeletal: Musculoskeletal: Denies deformity, Denies arthralgias, Denies joint swelling and Denies numbness Integumentary/Breasts: Skin/Breast: Denies rash and Denies wounds Neurologic: Reports dizziness, Denies headache(s), Denies focal weakness, Denies numbness and Reports weakness Psychiatric: Psychiatric: Reports no additional psychiatric complaints Endocrine: Endocrine: Reports no additional endocrine complaints Hematologic/Lymphatic: Hematologic/Lymphatic: Reports no additional hematologic/lymphatic complaints Allergic/Immunologic: Allergic/Immunologic: Reports no additional allergic/immunologic complaints [facility] Past Medical History Medical History (Updated 09/30/20 @ 00:07 by Allen Ortega MD) Arthritis CAD (coronary artery disease) Negative stress test November 2018 patient's rn child is Dr. 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 Diabetic nephropathy Diabetic retinopathy S/p retinal surgery Diastolic dysfunction Noted on prior echocardiogram but most recent echocardiogram demonstrating hyperdynamic left ventricle with EF greater than 70% with no mention of diastolic dysfunction Essential hypertension History of angina Hyperlipidemia Kidney stones NSTEMI (non-ST elevated myocardial infarction) With chronic troponin elevation Orthostatic hypotension Paroxysmal atrial fibrillation Not on anticoagulation due to high has bled score/high fall risk Peripheral neuropathy Surgical History Surgical History History of cholecystectomy History of loop recorder patient states
[2020-09-30 00:33] VITALS: BP 165/74; PULSE 81; RESP 18; O2SAT 96
== END 2020-09-30 00:35 | disposition home or self-care (01) ==
PROVIDERS: Emergency Provider Emergency Medicine; PCP Family Medicine
DX: E11.65 Type 2 diabetes mellitus with hyperglycemia (principal); Z79.4 Long term (current) use of insulin; M19.90 Unspecified osteoarthritis, unspecified site; I25.10 Atherosclerotic heart disease of native coronary artery without angina pectoris; D64.9 Anemia, unspecified; I12.9 Hypertensive chronic kidney disease with stage 1 through stage 4 chronic kidney disease, or unspecified chronic kidney disease; E11.22 Type 2 diabetes mellitus with diabetic chronic kidney disease; N18.30 Chronic kidney disease, stage 3 unspecified; I48.91 Unspecified atrial fibrillation; E78.5 Hyperlipidemia, unspecified; Z87.442 Personal history of urinary calculi
CPT/HCPCS: 80048; 82010; 82948; 85025; 93005; 96361; 96374; 96376; 99284; J1815; J7120

== ENCOUNTER 2020-10-15 16:05 | Emergency (ER) | payer MEDICAID, SELFPAY ==
--- NOTE | ~2020-10-15 | XR_ITS ---
XR chest 2V DATE: 10/15/2020 21:35 INDICATION: Syncope. Coronary artery disease. Diabetes. TECHNIQUE: AP and lateral views COMPARISON: 08/23/2020 PA and lateral chest 10/30/2019 PA and lateral chest FINDINGS: There is mild elevation/eventration of the right diaphragm, also present on 08/23/2020 in ad dition to 10/30/2019. Heart size is borderline. 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 No hilar or mediastinal enlargement. No pulmonary infiltrate or consolidation, pleural effusion or pu lmonary vascular congestion or pneumothorax. Diffuse idiopathic skeletal hyperostosis of the thoracic spine. IMPRESSION: No active disease or significant change since 10/30/2019 Reviewed, dictated and finalized at location A.
[2020-10-15 16:13] VITALS: BP 174/67; PULSE 102; RESP 16; TEMP 36.6; O2SAT 100
--- NOTE | 2020-10-15 18:03 | PC.NURSE ---
pt to desk asking where am i on the list . pt informed that while there is a set number of people ahead of him at this time, that is variable to change because it is always possible we could have critical patients arrive that need life saving interventions.
[2020-10-15 19:32] VITALS: BP 165/86; PULSE 95; O2SAT 98
[2020-10-15 19:48] LABS: Basophils Absolute Auto 0.1 K/mm3 (0.0-0.1); Basophils Percent Auto 0.6 % (0.2-1.2); Eosinophils Absolute Auto 0.2 K/mm3 (0-0.3); Eosinophils Percent Auto 2.3 % (0-4.4); Hematocrit 38.5 % (42.0-52.0); Hemoglobin 12.7 g/dL (14.0-18.0); Immature Granulocyte Absolute 0.02 K/mm3 (0.00-0.031); Immature Granulocyte Percent A 0.2 % (0-0.5); Mean Corpuscular Hemoglobin 30.5 pg (26-34); Mean Corpuscular Volume 92.5 fl (80-100); Mean Platelet Volume 10.4 fl (7.4-10.4); Monocytes Absolute Auto 0.4 K/mm3 (0.1-0.6); Monocytes Percent Auto 5.1 % (2.6-8.5); Neutrophils Absolute Auto 5.7 K/mm3 (1.3-6.7); Neutrophils Percent Auto 67.8 % (45.5-73.1); Platelet Count Result 228 k/mm3 (150-375); Red Blood Count 4.16 M/mm3 (4.6-6.20); White Blood Count 8.4 K/mm3 (4.5-10.0)
[2020-10-15 19:59] LABS: Alanine Aminotransferase 30 U/L (4-50); Albumin Level 4.5 g/dL (3.5-5.1); Alkaline Phosphatase 125 U/L (38-126); Anion Gap 11 mmol/L (8-16); Aspartate Amino Transferase 58 U/L (17-59); Bilirubin,Total 0.3 mg/dL (0.2-1.3); Blood Urea Nitrogen 20 mg/dL (9-20); Calcium 9.2 mg/dL (8.4-10.2); Carbon Dioxide 31 mmol/L (22-30); Chloride 96 mmol/L (98-107); Estimated CRCL calculation 65 ml/min; Estimated Glomerular Filt Rate 51; Glucose 220 mg/dL (65-110); Potassium 3.6 mmol/L (3.4-5.0); Sodium 138 mmol/L (137-145)
[2020-10-15 20:55] VITALS: BP 199/172; PULSE 103; RESP 16; O2SAT 97
--- NOTE | 2020-10-15 21:23 | ECG_ITS ---
Measurements Intervals [place] Rate: 90 P: 33 NE: 184 QRS: 84 QRSD: 106 T: 236 QT: 374 QTc: 458 Interpretive Statements SINUS RHYTHM ST-T WAVE ABNORMALITY IN ANTEROLAT/INF LEADS- CONSIDER ISCHEMIA BASELINE WANDER- I, II, AVR, AVL, AVF ABNORMAL ECG Electronically Signed On 10-16-2020 6:00:28 CDT by Colin Moreland D.O.
[2020-10-15] MEDS: SODIUM CHLORIDE 0.9% IV 1,000 ML 999 ML IV CONT (21:51)
[2020-10-15 22:04] LABS: Add Urine Microscopic? YES; Appearance Urine Clear (Clear); Bilirubin Urine Negative (Negative); Blood Urine Negative (Negative); Color Urine Yellow (Yellow); Glucose Urine UA 3+ mg/dL (Negative); Ketones Urine Negative (Negative); Leukocyte Esterase Ur Negative LEU/UL (Negative); Mucus Urine Rare /lpf; Nitrate Urine Negative (Negative); Protein Urine 3+ mg/dL (Negative); RBC Urine 0-2 /hpf (0-2); Specific Grav Ur 1.023 (1.001-1.035); Squamous Epithelial Cell Urine Occasional /hpf (Few); Urobilinogen Urine Negative mg/dL (<2.0); WBC Urine 0-3 /hpf
--- NOTE | 2020-10-15 22:08 | ED.GENADULT ---
HPI - General Adult General Chief complaint: Unspecified Stated complaint: dont feel good Time Seen by Provider: 10/15/20 21:01 History of Present Illness HPI narrative: Patient presents with feeling well. Patient reports he is unable to clearly articulate his symptoms other than he feels off. He reports he passed out today and woke up in the back of an ambulance. reports he normally has some dizziness when he tries to stand up to quickly. Patient denies any focal areas of discomfort today such as chest pain abdominal pain or headaches. Denies any active shortness of breath denies any recent fevers or changes in appetite. Denies any urinary symptoms. Denies any active dizziness right now denies any focal weakness or numbness. Related Data Home Medications Medication Instructions Recorded Confirmed aspirin [Aspirin Low Dose] 81 mg PO DAILY 01/08/19 08/21/20 atorvastatin 40 mg PO HS 01/08/19 08/21/20 gabapentin 400 mg PO TID 01/08/19 08/21/20 metoprolol tartrate 25 mg PO Q12H 01/08/19 08/21/20 insulin aspart U-100 [Novolog 20 units SUBCUT TIDWM 10/31/19 08/21/20 U-100 Insulin aspart] Allergies Allergy/AdvReac Type Severity Reaction Status Date / Time No Known Allergies Allergy Verified 10/15/20 21:05 Review of Systems Review of Systems: CONSTITUTIONAL: Denies fever, chills, or sweats. EYES: Denies visual changes, redness, or discharge. ENT: Denies rhinorrhea, congestion, sore throat, or otalgia. CARDIOVASCULAR: Denies chest pain, palpitations, or edema. RESPIRATORY: Denies cough or dyspnea. GASTROINTESTINAL: Denies abdominal pain, nausea, vomiting, or diarrhea. GENITOURINARY: Denies dysuria or hematuria. SKIN: Denies rash or itching. MUSCULOSKELETAL: Denies back pain, joint pain, or myalgia. NEUROLOGIC: Denies headache, numbness, dizziness, or weakness. PSYCHIATRIC: Denies anxiety or depression. 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 Diabetic nephropathy Diabetic retinopathy S/p retinal surgery Diastolic dysfunction Noted on prior echocardiogram but most recent echocardiogram demonstrating hyperdynamic left ventricle with EF greater than 70% with no mention of diastolic dysfunction Essential hypertension History of angina Hyperlipidemia Kidney stones NSTEMI (non-ST elevated myocardial infarction) With chronic troponin elevation Orthostatic hypotension Paroxysmal atrial fibrillation Not on anticoagulation due to high has bled score/high fall risk Peripheral neuropathy Surgical History Surgical History History of cholecystectomy History of loop recorder patient states that it no longer works. Status post cataract extraction of both eyes with insertion of intraocular lens Family History Family History Sibling Hypertension Father Polycystic kidney disease Colon cancer Diabetes mellitus Prostate carcinoma Mother Cerebrovascular accident CHF (congestive heart failure) Diabetes mellitus Acute myocardial infarction Social History Social History Social History: Mr. Cortez lives alone in an apartment complex for seniors. He does not drive due to his poor vision, however he is able to perform his ADLs independently. He is retired from the [employer]. He designates his sister, Ca
[2020-10-15 22:10] LABS: Lactic Acid Reflex 1.4 mmol/L (0.7-2.1)
[2020-10-15 22:44] VITALS: BP 189/79; PULSE 96; RESP 19; O2SAT 98
[2020-10-15 23:50] VITALS: BP 178/74; PULSE 92; RESP 19; O2SAT 97
== END 2020-10-15 23:50 | disposition home or self-care (01) ==
PROVIDERS: Emergency Medicine; Emergency Provider Emergency Medicine; PCP Family Medicine
DX: I25.10 Atherosclerotic heart disease of native coronary artery without angina pectoris (principal); E11.22 Type 2 diabetes mellitus with diabetic chronic kidney disease; I12.9 Hypertensive chronic kidney disease with stage 1 through stage 4 chronic kidney disease, or unspecified chronic kidney disease; N18.30 Chronic kidney disease, stage 3 unspecified; E11.21 Type 2 diabetes mellitus with diabetic nephropathy; E11.319 Type 2 diabetes mellitus with unspecified diabetic retinopathy without macular edema; E11.42 Type 2 diabetes mellitus with diabetic polyneuropathy; I48.0 Paroxysmal atrial fibrillation; E78.5 Hyperlipidemia, unspecified; D64.9 Anemia, unspecified; M19.90 Unspecified osteoarthritis, unspecified site; Z86.73 Personal history of transient ischemic attack (TIA), and cerebral infarction without residual deficits; Z87.442 Personal history of urinary calculi; Z79.82 Long term (current) use of aspirin; Z79.4 Long term (current) use of insulin; R94.31 Abnormal electrocardiogram [ECG] [EKG]
CPT/HCPCS: 36415; 71046; 80053; 81001; 83605; 85025; 93005; 96360; 99283; J7030

== ENCOUNTER 2020-11-08 20:19 | Inpatient (IN) | payer MEDICARE, MEDICAID, SELFPAY ==
--- NOTE | ~2020-11-08 | XR_ITS ---
EXAMINATION: XR chest 1V portable EXAM DATE: 11/09/2020 08:25 INDICATION: Hypoxia. TECHNIQUE: Portable AP frontal chest x-ray was obtained. Comparison is made to prior examination from 10/15/2020. FINDINGS: Cardiac monitoring device. Chronic mild hyperinflation. Small amount of left basilar atelec tasis or pneumonia. The lungs are otherwise clear. There are no pleural effusions. The cardiomedias tinal silhouette is within normal limits. There is no pneumothorax suspected. The bones and soft ti ssues are unremarkable. IMPRESSION: Small amount of left basilar atelectasis or pneumonia. Reviewed, dictated and finalized at location B.
--- NOTE | ~2020-11-08 | US_ITS ---
EXAMINATION: US carotid duplex BI DATE: 11/10/2020 08:46 INDICATION: Carotid stenosis. TECHNIQUE: Grayscale, color Doppler, and pulsed Doppler images of the cervical carotid arteries were obtained. The degree of vessel stenosis is placed in one of the following categories: normal, <50%, 5 0-69%, >=70% but less than near-occlusion, near-occlusion, or total occlusion. Note that percent sten osis relative to normal distal artery lumen diameter is indirectly measured from velocity measurement s as described by Jam, et al. Radiology 2003; 229:340-346. Notes: Normal: Peak systolic velocity <125 centimeters/sec and no plaque <50%. Peak systolic velocity <125 ( EDV <40; ICA/CCA PSV ratio <2.0; used these factors only a tandem lesions or low cardiac output or co ntralateral disease) 50-69 %: PSV 125-230 (EDV 40-100; ratio 2-4) >= 70% but less than near occlusion: PSV greater than 230 (EDV > 100; ratio> 4.0) Near Occlusion: PSV that is variable; markedly narrowed lumen Occlusion: Absent flow on color/spectral Doppler and no lumen on frias scale. COMPARISON: Ultrasound dated 10/31/2019. FINDINGS: RIGHT: The right common carotid artery (CCA) peak systolic velocity (PSV) is 91 cm/s. The right internal car otid artery (ICA) PSV is 179 cm/s. The right ICA end-diastolic velocity (EDV) is 39 cm/s. The right I CA/CCA PSV ratio is 2.0. The external carotid artery (ECA) PSV is 136 cm/s. There is antegrade flow i n the right vertebral artery. LEFT: The left CCA PSV is 94 cm/s. The left ICA PSV is 126 cm/s. The left ICA EDV is 17 cm/s. The left ICA/ CCA PSV ratio is 1.3. The ECA PSV is 137 cm/s. There is antegrade flow in the left vertebral artery. IMPRESSION: 1. 50-69% stenosis in the right internal carotid artery by sonographic criteria. 2. Less than 50% stenosis in the left internal carotid artery by sonographic criteria. Reviewed, dictated and finalized at location A. IMPRESSION: 1. 50-69% stenosis in the right internal carotid artery by sonographic criteria . 2. Less than 50% stenosis in the left internal carotid artery by sonographic cr iteria.
--- NOTE | ~2020-11-08 | CT_ITS ---
EXAMINATION: CT brain wo con EXAM DATE: 11/09/2020 13:51 INDICATION: Patient had a fall at home. TECHNIQUE: Spiral CT of the head was performed without contrast. Axial, coronal and sagittal images were reviewed. The dose-length product (DLP) for this examination was 681.00 mGy-cm. The exposure w as tailored according to patient size, and iterative reconstruction (ASIR) was used as additional dos e reduction technique. Comparison is made to prior examination from 06/24/2020. 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 Small old right occipital lobe infarct ion. There is no acute intraparenchymal hemorrhage. No evidence of intraparenchymal brain mass lesio n. No evidence of acute infarction. Please note that initial head CT has limited sensitivity for sm all or acute infarctions. There is mild periventricular and subcortical hypodensity, nonspecific but probably related to small vessel ischemic disease. 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 There is intracranial ca rotid arteriosclerosis. There are no extra-axial collections. There is no mass effect or midline sh ift. Patient has had bilateral ocular lens surgery. Left frontal scalp contusion. The visualized si nuses and mastoid air cells are well aerated. IMPRESSION: 1. Small old right occipital lobe infarction. 2. Congenital agenesis corpus callosum, colpocephaly. 3. Small left frontal scalp contusion. Reviewed, dictated and finalized at location B.
--- NOTE | ~2020-11-08 | CT_ITS ---
EXAMINATION: CT abdomen pelvis wo con DATE: 11/08/2020 20:46 INDICATION: Status post fall. Abdomen pain. TECHNIQUE: Computed tomography (CT) of the abdomen and pelvis was performed without intravenous contr ast. The dose-length product was 1409.33 mGy-cm. Automated exposure control and iterative reconstruct ion technique were employed. COMPARISON: CT dated 08/20/2020. FINDINGS: Dependent atelectasis. Heart size is normal. There is gynecomastia. No significant pleural or pericardial effusion. There are cholecystectomy clips. The liver, spleen, pancreas, adrenal glands and kidneys are unremarkable. Nonobstructive bowel gas pa ttern. Colonic diverticulosis without evidence for diverticulitis. Normal appendix. No free air or fr ee fluid. Enlarged prostate gland. There are calcifications of the penis, likely related to prior inf ection or trauma. There is diffuse idiopathic skeletal hyperostosis (DISH) of the thoracic and lumbar spine. There are bone islands in the femoral heads. IMPRESSION: 1. No acute abdominal abnormality. Reviewed, dictated and finalized at location A.
--- NOTE | ~2020-11-08 | CT_ITS ---
EXAMINATION: CT thoracic spine wo con DATE: 11/08/2020 20:46 INDICATION: Back pain after fall TECHNIQUE: Computed tomography (CT) of the thoracic spine was performed without intravenous contrast. The dose-length product was 1590.58 mGy-cm. COMPARISON: 10/30/2019 FINDINGS: No acute fracture, subluxation or dislocation. Vertebral body heights are maintained. There is lower cervical spondylosis. There is diffuse idiopathic skeletal hyperostosis (DISH) of the thora cic spine. Lung parenchyma is unremarkable. IMPRESSION: 1. No acute abnormality of the thoracic spine. Reviewed, dictated and finalized at location A.
[2020-11-08 19:42] VITALS: BP 138/73; PULSE 100; RESP 20; TEMP 36.1; O2SAT 98
--- NOTE | 2020-11-08 19:48 | ECG_ITS ---
Measurements Intervals [place] Rate: 96 P: [place]: 0 QRS: 145 QRSD: 109 T: -49 QT: 380 QTc: 482 Interpretive Statements SINUS RHYTHM ATRIAL AND VENTRICULAR PREMATURE COMPLEXES LIMB LEAD REVERSAL LEFT VENTRICULAR HYPERTROPHY WITH ST-T CHANGE ST-T WAVE ABNORMALITY IN ANTEROLAT/INF LEADS- CONSIDER ISCHEMIA BASELINE ARTIFACT- V1, V3 ABNORMAL ECG Electronically Signed On 11-09-2020 5:25:45 CDT by Colin Moreland D.O.
--- NOTE | 2020-11-08 21:21 | ED.GENADULT ---
HPI - General Adult General Chief complaint: Fall Stated complaint: fall, back pain Time Seen by Provider: 11/08/20 20:19 History of Present Illness HPI narrative: Patient is a 65-year-old gentleman who presents the emergency department with chief complaint of back pain. Patient reports that he slid while getting out of the shower fell and struck his back patient reports he has pain in his lumbar region and also his low thoracic region. Patient states pain is worse with movement and improved with rest. Related Data Home Medications Medication Instructions Recorded Confirmed aspirin [Aspirin Low Dose] 81 mg PO DAILY 01/08/19 08/21/20 atorvastatin 40 mg PO HS 01/08/19 08/21/20 gabapentin 400 mg PO TID 01/08/19 08/21/20 metoprolol tartrate 25 mg PO Q12H 01/08/19 08/21/20 insulin aspart U-100 [Novolog 20 units SUBCUT TIDWM 10/31/19 08/21/20 U-100 Insulin aspart] Allergies Allergy/AdvReac Type Severity Reaction Status Date / Time No Known Allergies Allergy Verified 11/08/20 19:46 Review of Systems Review of Systems: A 10 system review of systems was completed on the patient and is negative except for what is stated in the HPI. Nursing and ancillary documentation was reviewed. 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 Diabetic nephropathy Diabetic retinopathy S/p retinal surgery Diastolic dysfunction Noted on prior echocardiogram but most recent echocardiogram demonstrating hyperdynamic left ventricle with EF greater than 70% with no mention of diastolic dysfunction Essential hypertension History of angina Hyperlipidemia Kidney stones NSTEMI (non-ST elevated myocardial infarction) With chronic troponin elevation Orthostatic hypotension Paroxysmal atrial fibrillation Not on anticoagulation due to high has bled score/high fall risk Peripheral neuropathy Surgical History Surgical History History of cholecystectomy History of loop recorder patient states that it no longer works. Status post cataract extraction of both eyes with insertion of intraocular lens Family History Family History Sibling Hypertension Father Polycystic kidney disease Colon cancer Diabetes mellitus Prostate carcinoma Mother Cerebrovascular accident CHF (congestive heart failure) Diabetes mellitus Acute myocardial infarction Social History Social History Social History: Mr. Cortez lives alone in an apartment complex for seniors. He does not drive due to his poor vision, however he is able to perform his ADLs independently. He is retired from the [employer]. He designates his sister, Yaz as his surrogate decision maker and he wishes to be a full code. He has 2 daughters who are relatively healthy. He is . Smoking status: Never smoker Second hand tobacco smoke exposure: Yes Alcohol intake: never Substance use: never Additional living arrangements comments: The patient is currently living alone. He had been placed in a long term for 3 years previously until he had corrective surgery for vision loss associated with his diabetes. He was discharged from long term December 2017. 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 He is now on disability follow
[2020-11-08 21:33] VITALS: BP 176/76; PULSE 98; RESP 20; O2SAT 97
[2020-11-08] MEDS: ONDANSETRON INJ 4 MG/2 ML VIAL IV PUSH (22:00)
[2020-11-08] MEDS: MORPHINE SULFATE (*CRX) 4 MG/ML INJ IV PUSH (22:00)
[2020-11-08 22:04] LABS: Basophils Percent Auto 0.3 % (0.2-1.2); Eosinophils Percent Auto 0.4 % (0-4.4); Hemoglobin 13.1 g/dL (14.0-18.0); Immature Granulocyte Absolute 0.06 K/mm3 (0.00-0.031); Immature Granulocyte Percent A 0.5 % (0-0.5); Lymphocytes Absolute Auto 1.92 K/mm3 (0.9-3.2); Lymphocytes Percent Auto 17.6 % (18.3-44.2); Mean Corpuscular HGB Conc 34.5 g/dl (32-36); Mean Corpuscular Hemoglobin 31.3 pg (26-34); Mean Corpuscular Volume 90.7 fl (80-100); Mean Platelet Volume 10.5 fl (7.4-10.4); Monocytes Absolute Auto 0.6 K/mm3 (0.1-0.6); Monocytes Percent Auto 5.9 % (2.6-8.5); Neutrophils Absolute Auto 8.2 K/mm3 (1.3-6.7); Neutrophils Percent Auto 75.3 % (45.5-73.1); Platelet Count Result 272 k/mm3 (150-375); Red Blood Count 4.19 M/mm3 (4.6-6.20); Red Cell Distribution Width 13.7 % (11.5-14.5); White Blood Count 10.9 K/mm3 (4.5-10.0)
[2020-11-08 22:20] LABS: Alanine Aminotransferase 35 U/L (4-50); Albumin Level 4.3 g/dL (3.5-5.1); Alkaline Phosphatase 142 U/L (38-126); Anion Gap 20 mmol/L (8-16); Aspartate Amino Transferase 60 U/L (17-59); Blood Urea Nitrogen 75 mg/dL (9-20); Calcium 7.8 mg/dL (8.4-10.2); Carbon Dioxide 29 mmol/L (22-30); Chloride 80 mmol/L (98-107); Estimated CRCL calculation 33 ml/min; Estimated Glomerular Filt Rate 23; Glucose 601 mg/dL (65-110); Lipase 84 U/L (23-300); Potassium 3.6 mmol/L (3.4-5.0); Sodium 129 mmol/L (137-145)
[2020-11-08 22:21] LABS: Lactic Acid Reflex 1.5 mmol/L (0.7-2.1)
[2020-11-08 22:59] VITALS: PULSE 95; RESP 12; O2SAT 97
[2020-11-08] MEDS: SODIUM CHLORIDE 0.9% IV 1,000 ML 999 ML IV CONT ×2 (23:02→23:03)
[2020-11-08 23:16] VITALS: BP 116/55; PULSE 94; RESP 14; O2SAT 96
[2020-11-08 23:41] LABS: HCO3 VBG 24.1 mEq/l (24.0-30.0); PO2 VBG 124.4 mmHg (35.0-45.0)
[2020-11-08 23:43] LABS: Device ROOM AIR; Fractional Inspired Oxygen 21 %; pH VBG 7.409 (7.300-7.400)
[2020-11-09] VITALS (10 sets, daily range): BP systolic 103–148; BP diastolic 58–72; PULSE 82–102; RESP 12–18; TEMP 36.3–37.5; O2SAT 93–99; BMI 28.0
[2020-11-09] MEDS: INSULIN HUMAN REGULAR (*BKC) 100 UNITS/ML 10 UNITS IV PUSH (00:14)
[2020-11-09 00:22] LABS: Glucose Point of Care > 500 mg/dl (65-105)
[2020-11-09 01:15] LABS: Add Urine Microscopic? YES; Appearance Urine Clear (Clear); Bilirubin Urine Negative (Negative); Blood Urine 2+ (Negative); Color Urine Yellow (Yellow); Glucose Urine UA 3+ mg/dL (Negative); Ketones Urine 1+ mg/dL (Negative); Leukocyte Esterase Ur Negative LEU/UL (Negative); Nitrate Urine Negative (Negative); Protein Urine 3+ mg/dL (Negative); RBC Urine 0-2 /hpf (0-2); Specific Grav Ur 1.022 (1.001-1.035); Squamous Epithelial Cell Urine Rare /hpf (Few); Urobilinogen Urine Negative mg/dL (<2.0); WBC Urine 0-3 /hpf
[2020-11-09 01:50] LABS: Glucose Point of Care 434 mg/dl (65-105)
[2020-11-09] MEDS: INSULIN HUMAN REGULAR (*BKC) 100 UNITS in SODIUM CHLORIDE 0.9% IV 99 ML 10.8 UNITS IV CONT (01:54)
[2020-11-09 03:08] LABS: Magnesium 2.5 mg/dL (1.6-2.3); Phosphorus 4.9 mg/dL (2.5-4.5)
--- NOTE | 2020-11-09 03:15 | PC.NURSE ---
Report received by Crys with the ED department at 0305. Patient to go to ICU room 4.
[2020-11-09 03:34] LABS: Anion Gap 18 mmol/L (8-16); Blood Urea Nitrogen 88 mg/dL (9-20); Calcium 7.2 mg/dL (8.4-10.2); Carbon Dioxide 23 mmol/L (22-30); Chloride 86 mmol/L (98-107); Estimated CRCL calculation 35 ml/min; Estimated Glomerular Filt Rate 24; Glucose 502 mg/dL (65-110); Potassium 3.6 mmol/L (3.4-5.0); Sodium 127 mmol/L (137-145)
[2020-11-09 03:40] LABS: Troponin I 0.931 ng/mL (0.000-0.034)
--- NOTE | 2020-11-09 04:30 | PM.IMHP ---
H&P: HPI History of Present Illness Date/Time: 11/09/20 04:30 Chief Complaint: Fall Narrative: 65-year-old male with past medical history of uncontrolled diabetes mellitus, chronic troponin elevation, chronic kidney disease and orthostatic hypotension who presented to the ER after a fall. The patient reports that he was getting into the shower when he became dizzy and fell striking his head. When he arrived to the ER his chief complaint was back pain after a fall. And pain in his lumbar region and lower thoracic region. Pain was worse with movement improved with rest. The patient denies any pain at the time of my evaluation. He reports that he presented with his usual symptoms of passing out while doing nothing. He has had multiple episodes of orthostatic hypotension in the past. He claims of been taking all of his home medications however when he arrived to the ER his glucoses were 600. The patient claims that his glucoses have been ?in his usual range?. He states his usual range is 120-150 however the patient's hemoglobin A1c this morning returned greater than 10. He does report polyphasia. He denies any polyuria. He reports that he received his 1st Pfizer vaccine for COVID 2 weeks ago. He denies any symptoms associated with the vaccine. Review of Systems Review of Systems: 12 systems were reviewed with pertinent positives and negatives per HPI. Except as documented in the HPI, all other systems were reviewed and are negative. 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 Diabetic nephropathy Diabetic retinopathy S/p retinal surgery Diastolic dysfunction Noted on prior echocardiogram but most recent echocardiogram demonstrating hyperdynamic left ventricle with EF greater than 70% with no mention of diastolic dysfunction Essential hypertension History of angina Hyperlipidemia Kidney stones NSTEMI (non-ST elevated myocardial infarction) With chronic troponin elevation Orthostatic hypotension Paroxysmal atrial fibrillation Not on anticoagulation due to high has bled score/high fall risk Peripheral neuropathy Surgical History Surgical History History of cholecystectomy History of loop recorder patient states that it no longer works. Status post cataract extraction of both eyes with insertion of intraocular lens Family History Family History Sibling Hypertension Father Polycystic kidney disease Colon cancer Diabetes mellitus Prostate carcinoma Mother Cerebrovascular accident CHF (congestive heart failure) Diabetes mellitus Acute myocardial infarction Social History Social History (Updated 11/09/20 @ 04:37 by Mary Smith DO) Social History: He is and lives alone in an apartment complex for seniors. He does not drive due to his poor vision. He is otherwise independent activities of daily living. He is retired from the [employer]. He designates his sister, Yaz as his surrogate decision maker and he wishes to be a full code. He has 2 daughters who are relatively healthy. Smoking status: Never smoker Second hand tobacco smoke exposure: No Alcohol intake: never Substance use: never Substance use type: does not use Additional living arrangements comments: The patient is currently living alone. He had been placed in a long term for 3 years previously until he had corrective surgery f
[2020-11-09] MEDS: SODIUM CHLORIDE 0.9% IV 1,000 ML 150 ML IV CONT (04:31)
[2020-11-09 05:00] LABS: Anion Gap 13 mmol/L (8-16); Blood Urea Nitrogen 84 mg/dL (9-20); Calcium 7.1 mg/dL (8.4-10.2); Carbon Dioxide 31 mmol/L (22-30); Chloride 89 mmol/L (98-107); Estimated CRCL calculation 28 ml/min; Estimated Glomerular Filt Rate 22; Glucose 311 mg/dL (65-110); Potassium 3.1 mmol/L (3.4-5.0); Sodium 133 mmol/L (137-145)
[2020-11-09 05:11] LABS: Hemoglobin A1C 10.8 % (<5.7)
--- NOTE | 2020-11-09 05:12 | ADMGEN ---
This patient, Jorge Alberto Cortez, was admitted to Intensive Care Unit-4 at 0339 from the ED. Patient/family oriented to hospital policies and general routines including ID bracelet, bed and alarms, visiting hours, pain management, procedures, bathroom and other care routines, personal items, smoking policy, room service/diet, and visiting hours. Information on how to activate the Rapid Response Team has been discussed. Patient/Family are encouraged to report perceived risks to care and to ask questions if they do not understand what they are told or what they should do.
[2020-11-09 05:17] LABS: Troponin I 0.887 ng/mL (0.000-0.034)
[2020-11-09] MEDS: KCL 20 MEQ/D5/0.45% SOD CHL 1,000 ML 150 ML IV CONT (06:00)
[2020-11-09 06:25] LABS: Glucose Point of Care 394 mg/dl (65-105)
[2020-11-09 06:25] LABS: Glucose Point of Care 212 mg/dl (65-105)
[2020-11-09 06:25] LABS: Glucose Point of Care 266 mg/dl (65-105)
[2020-11-09 07:06] LABS: Glucose Point of Care 200 mg/dl (65-105)
[2020-11-09] MEDS: SODIUM CHLORIDE 0.9% IV 1,000 ML 999 ML IV CONT (08:13)
[2020-11-09] MEDS: POTASSIUM CHLORIDE 20 MEQ TABLET 40 MEQ PO (09:08)
[2020-11-09] MEDS: ENOXAPARIN 40 MG/0.4 ML SYRINGE SUB-Q (09:09)
[2020-11-09 09:18] LABS: Glucose Point of Care 179 mg/dl (65-105)
[2020-11-09 09:18] LABS: Glucose Point of Care 109 mg/dl (65-105)
[2020-11-09 11:38] LABS: Glucose Point of Care 111 mg/dl (65-105)
[2020-11-09 12:19] LABS: Anion Gap 12 mmol/L (8-16); Blood Urea Nitrogen 79 mg/dL (9-20); Calcium 7.1 mg/dL (8.4-10.2); Carbon Dioxide 28 mmol/L (22-30); Chloride 94 mmol/L (98-107); Estimated CRCL calculation 37 ml/min; Estimated Glomerular Filt Rate 30; Glucose 94 mg/dL (65-110); Potassium 3.5 mmol/L (3.4-5.0); Sodium 134 mmol/L (137-145)
--- NOTE | 2020-11-09 12:44 | WPDCNINT ---
Assessment and Plan Assessment and plan (1) DKA (diabetic ketoacidosis): Qualifiers: Diabetes mellitus complication detail: without coma Diabetes mellitus type: other specified (including SHILA) Qualified Code(s): E13.10 - Other specified diabetes mellitus with ketoacidosis without coma Code(s): E11.10 - Type 2 diabetes mellitus with ketoacidosis without coma Status: Acute Assessment and Plan: Patient had blood sugars of 600 in the ER, positive beta hydroxybutyrate and anion gap of 20. Patient was diagnosed with DKA, given 2 L of fluids, started on insulin infusion per DKA protocol and transferred to the ICU for further management. -patient was given additional IV fluid bolus this morning -anion gap and repeat labs has normalized, blood sugars have been low, insulin drip had to be turned off. -will transition patient on home Lantus will decrease to 30 units q.12 hours (patient is on Lantus 50 units q.12 hours) -also with start diabetic diet -hemoglobin A1c is 10.4 this admission (2) Fall: Qualifiers: Encounter type: initial encounter Qualified Code(s): W19.XXXA - Unspecified fall, initial encounter Code(s): W19.XXXA - Unspecified fall, initial encounter Status: Acute Assessment and Plan: Patient had a fall in the shower on 11/08/2020, patient says he hit his head and back. His fall could be related to multiple factors, DKA with hypovolemia/dehydration, orthostatic hypotension, -will obtain CT scan of the head -CT scan of the thoracic spine did not show any abnormality (3) Paroxysmal atrial fibrillation: Code(s): I48.0 - Paroxysmal atrial fibrillation Status: Chronic Assessment and Plan: Currently in sinus rhythm, rate controlled, patient is not on any anticoagulation at home -will restart metoprolol (4) Acute renal failure superimposed on stage 3 chronic kidney disease: Qualifiers: Acute renal failure type: unspecified Chronic kidney disease stage 3 subtype: unspecified whether 3a or 3b Qualified Code(s): N17.9 - Acute kidney failure, unspecified; N18.30 - Chronic kidney disease, stage 3 unspecified Code(s): N17.9 - Acute kidney failure, unspecified; N18.30 - Chronic kidney disease, stage 3 unspecified Status: Acute Assessment and Plan: Acute on chronic renal disease likely related to DKA, hypovolemia, decreased p.o. intake (5) Hypertension: Qualifiers: Hypertension type: essential hypertension Qualified Code(s): I10 - Essential (primary) hypertension Code(s): I10 - Essential (primary) hypertension Status: Chronic Assessment and Plan: Will continue lisinopril and metoprolol (6) DVT prophylaxis: Code(s): Z29.9 - Encounter for prophylactic measures, unspecified Status: Acute Assessment and Plan: Lovenox Additional Plan Discussed with patient updated with his condition and plan of care. Code status: Full code Critical care time spent: 43 minutes This dictation may have been done utilizing a voice recognition system. Attempts have been made to correct errors. However, there may be uncorrected grammatical, spelling, and recognition errors present. Due to a high probability of clinically significant, life threatening deterioration, the patient required my highest level of preparedness to intervene emergently and I personally spent this critical care time directly and personally managing the patient. This critical care time included obtaining a history; examining the patient; pulse oximetry; ordering and review of studies; arranging urgent treatment with development of a management plan; evaluation of patient's response to treatment; frequent reassessment; and discussions with other providers. It was exclusive of separately billable procedures and treating other patients and teaching time. Please see Assessment and Plan section and the rest of the note for further information
[2020-11-09] MEDS: INSULIN GLARGINE (*BKC) 100 UNITS/ML 30 UNITS SUB-Q (13:02)
[2020-11-09 16:52] LABS: Glucose Point of Care 241 mg/dl (65-105)
[2020-11-09] MEDS: INSULIN ASPART (*BKC) 100 UNITS/ML 20 UNITS SUB-Q (17:43)
[2020-11-09] MEDS: GABAPENTIN 400 MG CAPSULE PO (17:44)
--- NOTE | 2020-11-09 17:59 | PM.IMPN ---
Progress Note: A&P Assessment and Plan (1) DKA (diabetic ketoacidosis): Qualifiers: Diabetes mellitus complication detail: without coma Diabetes mellitus type: other specified (including SHILA) Qualified Code(s): E13.10 - Other specified diabetes mellitus with ketoacidosis without coma Code(s): E11.10 - Type 2 diabetes mellitus with ketoacidosis without coma Status: Acute Assessment and Plan: Patient had blood sugars of 600 in the ER, positive beta hydroxybutyrate and anion gap of 20. Patient was diagnosed with DKA, given 2 L of fluids, started on insulin infusion per DKA protocol and transferred to the ICU for further management. Anion gap has closed and is transitioned to Lantus lispro and off insulin drip now Diabetic diet Hemoglobin A1c 10.8 (2) Fall: Qualifiers: Encounter type: initial encounter Qualified Code(s): W19.XXXA - Unspecified fall, initial encounter Code(s): W19.XXXA - Unspecified fall, initial encounter Status: Acute Assessment and Plan: Patient had a fall in the shower on 11/08/2020, patient says he hit his head and back. His fall could be related to multiple factors, DKA with hypovolemia/dehydration, orthostatic hypotension, elevated troponin present on admission however has chronic troponin elevation CT head negative for any intracranial injury -CT scan of the thoracic spine did not show any abnormality CT abdomen without any abnormality (3) Paroxysmal atrial fibrillation: Code(s): I48.0 - Paroxysmal atrial fibrillation Status: Chronic Assessment and Plan: Currently in sinus rhythm, rate controlled, patient is not on any anticoagulation at home Restart aspirin and metoprolol (4) Acute renal failure superimposed on stage 3 chronic kidney disease: Qualifiers: Acute renal failure type: unspecified Chronic kidney disease stage 3 subtype: unspecified whether 3a or 3b Qualified Code(s): N17.9 - Acute kidney failure, unspecified; N18.30 - Chronic kidney disease, stage 3 unspecified Code(s): N17.9 - Acute kidney failure, unspecified; N18.30 - Chronic kidney disease, stage 3 unspecified Status: Acute Assessment and Plan: Acute on chronic renal disease likely related to DKA, hypovolemia, decreased p.o. intake Admission creatinine of 2.8 baseline creatinine in mid 1s currently 2.2 (5) Hypertension: Qualifiers: Hypertension type: essential hypertension Qualified Code(s): I10 - Essential (primary) hypertension Code(s): I10 - Essential (primary) hypertension Status: Chronic Assessment and Plan: Will continue lisinopril and metoprolol (6) DVT prophylaxis: Code(s): Z29.9 - Encounter for prophylactic measures, unspecified Status: Acute Assessment and Plan: Lovenox (7) Elevated troponin: Code(s): R79.89 - Other specified abnormal findings of blood chemistry Status: Acute Assessment and Plan: Chronically elevated however was elevated to 1.3 subsequent levels slowly dropping Could be type 2 OR due to underlying DKA and hyperglycemia EKG with similar changes compared to last admission No known history of coronary artery disease Negative Lexiscan stress test in 11/27/2018 with no ischemia ejection fraction more than 70% Follows with Dr. Kaplan as an outpatient basis Echo from 07/2020 reviewed Will consult cardiology for further evaluation (8) Orthostatic hypotension: Code(s): I95.1 - Orthostatic hypotension Status: Resolved Assessment and Plan: Chronic problem secondary to autonomic dysfunction (9) Carotid artery stenosis: Code(s): I65.29 - Occlusion and stenosis of unspecified carotid artery Status: Acute Assessment and Plan: 50-69% right carotid artery stenosis on aspirin and statin done in 10/2019 Will order another Additional Plan Code status full code Subjective Date/time seen: 11/09/20 17:59
[2020-11-09 18:39] LABS: SARS-CoV-2 RNA PCR Negative
[2020-11-09] MEDS: ATORVASTATIN 40 MG TABLET PO (21:01)
[2020-11-09] MEDS: METOPROLOL TARTRATE 50 MG TAB PO (21:03)
[2020-11-09] MEDS: INSULIN GLARGINE (*BKC) 100 UNITS/ML 15 UNITS SUB-Q (21:48)
[2020-11-09 22:10] LABS: Anion Gap 10 mmol/L (8-16); Blood Urea Nitrogen 79 mg/dL (9-20); Calcium 7.2 mg/dL (8.4-10.2); Carbon Dioxide 33 mmol/L (22-30); Chloride 95 mmol/L (98-107); Estimated CRCL calculation 40 ml/min; Estimated Glomerular Filt Rate 34; Glucose 155 mg/dL (65-110); Potassium 3.4 mmol/L (3.4-5.0); Sodium 138 mmol/L (137-145)
[2020-11-09 22:31] LABS: Glucose Point of Care 113 mg/dl (65-105)
[2020-11-10] VITALS (9 sets, daily range): BP systolic 145–168; BP diastolic 57–66; PULSE 77–97; RESP 18; TEMP 35.9–36.7; O2SAT 94–95
[2020-11-10 06:35] LABS: Basophils Percent Auto 0.6 % (0.2-1.2); Eosinophils Absolute Auto 0.2 K/mm3 (0-0.3); Eosinophils Percent Auto 2.9 % (0-4.4); Hematocrit 34.6 % (42.0-52.0); Hemoglobin 11.6 g/dL (14.0-18.0); Immature Granulocyte Absolute 0.02 K/mm3 (0.00-0.031); Immature Granulocyte Percent A 0.3 % (0-0.5); Lymphocytes Absolute Auto 1.61 K/mm3 (0.9-3.2); Lymphocytes Percent Auto 24.9 % (18.3-44.2); Mean Corpuscular HGB Conc 33.5 g/dl (32-36); Mean Corpuscular Hemoglobin 30.8 pg (26-34); Mean Corpuscular Volume 91.8 fl (80-100); Mean Platelet Volume 10.7 fl (7.4-10.4); Monocytes Absolute Auto 0.4 K/mm3 (0.1-0.6); Monocytes Percent Auto 6.6 % (2.6-8.5); Neutrophils Absolute Auto 4.2 K/mm3 (1.3-6.7); Neutrophils Percent Auto 64.7 % (45.5-73.1); Platelet Count Result 244 k/mm3 (150-375); Red Blood Count 3.77 M/mm3 (4.6-6.20); Red Cell Distribution Width 14.1 % (11.5-14.5); White Blood Count 6.5 K/mm3 (4.5-10.0)
[2020-11-10 06:46] LABS: Anion Gap 10 mmol/L (8-16); Blood Urea Nitrogen 64 mg/dL (9-20); Calcium 7.5 mg/dL (8.4-10.2); Carbon Dioxide 29 mmol/L (22-30); Chloride 98 mmol/L (98-107); Estimated CRCL calculation 47 ml/min; Estimated Glomerular Filt Rate 41; Glucose 204 mg/dL (65-110); Magnesium 2.7 mg/dL (1.6-2.3); Phosphorus 3.1 mg/dL (2.5-4.5); Potassium 3.2 mmol/L (3.4-5.0); Sodium 137 mmol/L (137-145)
[2020-11-10 07:58] LABS: Glucose Point of Care 180 mg/dl (65-105)
[2020-11-10] MEDS: POTASSIUM CHLORIDE 20 MEQ TABLET 40 MEQ PO (09:04)
[2020-11-10] MEDS: GABAPENTIN 400 MG CAPSULE PO ×3 (09:05→17:25)
[2020-11-10] MEDS: MAGNESIUM OXIDE 400 MG TABLET PO (09:05)
[2020-11-10] MEDS: METOPROLOL TARTRATE 50 MG TAB PO ×2 (09:05→21:33)
[2020-11-10] MEDS: ASPIRIN 81 MG ENTERIC TABLET PO (09:05)
[2020-11-10] MEDS: lisinopriL 5 MG TABLET PO (09:06)
[2020-11-10] MEDS: FLUDROCORTISONE ACETATE 0.1 MG TABLET PO (09:06)
[2020-11-10] MEDS: INSULIN GLARGINE (*BKC) 100 UNITS/ML 30 UNITS SUB-Q (09:06)
[2020-11-10] MEDS: ENOXAPARIN 40 MG/0.4 ML SYRINGE SUB-Q (09:06)
[2020-11-10 09:16] LABS: CRP 1.4 mg/dL (<1.0)
[2020-11-10 12:08] LABS: Glucose Point of Care 281 mg/dl (65-105)
[2020-11-10] MEDS: INSULIN ASPART (*BKC) 100 UNITS/ML 20 UNITS SUB-Q ×2 (12:09→17:24)
--- NOTE | 2020-11-10 13:48 | PM.CNCAR ---
Assessment and Plan Assessment and plan (1) Elevated troponin: Code(s): R79.89 - Other specified abnormal findings of blood chemistry Status: Acute Assessment and Plan: He has chronically elevated troponins. These do not represent acute plaque rupture from ACS. (2) Syncope: Code(s): R55 - Syncope and collapse Status: Acute Assessment and Plan: He did not have a syncopal episode. He slipped and fell. Will DC the echocardiogram which is ordered. Echo was ordered and performed recently and another 1 is not needed at this point (3) Paroxysmal atrial fibrillation: Code(s): I48.0 - Paroxysmal atrial fibrillation Status: Chronic Assessment and Plan: Not on anticoagulation because of fall risk (4) Fall: Qualifiers: Encounter type: initial encounter Qualified Code(s): W19.XXXA - Unspecified fall, initial encounter Code(s): W19.XXXA - Unspecified fall, initial encounter Status: Acute Assessment and Plan: He simply states that he slipped and fell No cardiac workup is indicated at this point. Continue home regimen History of Present Illness History of Present Illness Consult date/time: 11/10/20 13:48 Requesting physician: Leonel Smalls MD Consult reason: Other (Syncope, elevated troponin) Reason For Visit: DKA, fall, back pain Narrative: Reason consultation: Syncope, elevated troponin Date of service 11/10/[address] Smalls History: Patient is a 65-year-old male who has uncontrolled diabetes, chronic troponin elevation, chronic kidney disease orthostatic hypotension who presented to the hospital because of a fall. He did not pass out. He is adamant that he did not pass out. He states that he was getting into the shower and slipped and fell and hit his head. Came to the hospital with complaints of back pain after the fall. He had also a blood sugar of greater than 600 and was treated for DKA. His troponins were initially a bit elevated and Cardiology consultation was requested. He otherwise denies any chest pain, shortness of breath, syncope, presyncope, paroxysmal nocturnal dyspnea, orthopnea, edema palpitations. Review of Systems Review of Systems: All systems reviewed & are unremarkable except as noted in HPI and below Constitutional: Constitutional: Reports weakness Eyes: Eyes: Reports blurry vision ENT: Reports Normal hearing present Cardiovascular: Cardiovascular: Denies chest pain Respiratory: Respiratory: Denies dyspnea Gastrointestinal: Gastrointestinal: Denies abdominal pain Genitourinary: Genitourinary: Reports dysuria Musculoskeletal: Musculoskeletal: Denies neck pain Integumentary/Breasts: Skin/Breast: Denies dry skin Neurologic: Denies headache(s) Psychiatric: Psychiatric: Denies anxiety and Denies confusion Endocrine: Endocrine: Denies excessive sweating and Denies fatigue Hematologic/Lymphatic: Hematologic/Lymphatic: Denies easy bleeding Allergic/Immunologic: Allergic/Immunologic: Denies GI upset with certain foods PMFSH Past Medical History Medical History Arthritis CAD (coronary artery disease) Negative stress test November 2018 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 Diabetic nephropathy Diabetic retinopathy S/p retinal surgery Diastolic dysfunction Noted on prior echocardiogram but most recent echocardiogram demonstrating hyperdynamic left ventricle with EF greater than 70% with no mention of diastolic dysfunction Essential hypertension History of angina Hyperlipidemia Kidney stones NSTEMI (non-ST elevated myocar
--- NOTE | 2020-11-10 15:43 | PM.IMPN ---
Progress Note: A&P Assessment and Plan (1) DKA (diabetic ketoacidosis): Qualifiers: Diabetes mellitus complication detail: without coma Diabetes mellitus type: other specified (including SHILA) Qualified Code(s): E13.10 - Other specified diabetes mellitus with ketoacidosis without coma Code(s): E11.10 - Type 2 diabetes mellitus with ketoacidosis without coma Status: Acute Assessment and Plan: Patient had blood sugars of 600 in the ER, positive beta hydroxybutyrate and anion gap of 20. Patient was diagnosed with DKA, given 2 L of fluids, started on insulin infusion per DKA protocol and transferred to the ICU for further management. Anion gap has closed and is transitioned to Lantus lispro and off insulin drip now Diabetic diet Hemoglobin A1c 10.8 11/10 today patient states feeling tired and fatigue, is currently on Lantus 30 units b.i.d., aspart 20 units t.i.d. with meals and sliding scale patient blood sugars are trending close to 200, will monitor patient 1 more day and will discharge the patient tomorrow (2) Fall: Qualifiers: Encounter type: initial encounter Qualified Code(s): W19.XXXA - Unspecified fall, initial encounter Code(s): W19.XXXA - Unspecified fall, initial encounter Status: Acute Assessment and Plan: Patient had a fall in the shower on 11/08/2020, patient says he hit his head and back. His fall could be related to multiple factors, DKA with hypovolemia/dehydration, orthostatic hypotension, elevated troponin present on admission however has chronic troponin elevation CT head negative for any intracranial injury -CT scan of the thoracic spine did not show any abnormality CT abdomen without any abnormality (3) Paroxysmal atrial fibrillation: Code(s): I48.0 - Paroxysmal atrial fibrillation Status: Chronic Assessment and Plan: Currently in sinus rhythm, rate controlled, patient is not on any anticoagulation at home Restart aspirin and metoprolol (4) Acute renal failure superimposed on stage 3 chronic kidney disease: Qualifiers: Acute renal failure type: unspecified Chronic kidney disease stage 3 subtype: unspecified whether 3a or 3b Qualified Code(s): N17.9 - Acute kidney failure, unspecified; N18.30 - Chronic kidney disease, stage 3 unspecified Code(s): N17.9 - Acute kidney failure, unspecified; N18.30 - Chronic kidney disease, stage 3 unspecified Status: Acute Assessment and Plan: Acute on chronic renal disease likely related to DKA, hypovolemia, decreased p.o. intake Admission creatinine of 2.8 baseline creatinine in mid 1s currently 2.2 (5) Hypertension: Qualifiers: Hypertension type: essential hypertension Qualified Code(s): I10 - Essential (primary) hypertension Code(s): I10 - Essential (primary) hypertension Status: Chronic Assessment and Plan: Will continue lisinopril and metoprolol (6) DVT prophylaxis: Code(s): Z29.9 - Encounter for prophylactic measures, unspecified Status: Acute Assessment and Plan: Lovenox (7) Elevated troponin: Code(s): R79.89 - Other specified abnormal findings of blood chemistry Status: Acute Assessment and Plan: Chronically elevated however was elevated to 1.3 subsequent levels slowly dropping Could be type 2 [place] due to underlying DKA and hyperglycemia EKG with similar changes compared to last admission No known history of coronary artery disease Negative Lexiscan stress test in 11/27/2018 with no ischemia ejection fraction more than 70% Follows with Dr. Kaplan as an outpatient basis Echo from 07/2020 reviewed Will consult cardiology for further evaluation (8) Orthostatic hypotension: Code(s): I95.1 - Orthostatic hypotension Status: Resolved Assessment and Plan: Chronic problem secondary to autonomic dysfunction (9) Carotid artery stenosis: Code(s): I65.29 - Occlusion and steno
[2020-11-10 17:21] LABS: Glucose Point of Care 186 mg/dl (65-105)
[2020-11-10] MEDS: ATORVASTATIN 40 MG TABLET PO (21:34)
[2020-11-11] VITALS: BP 141/84; PULSE 71; PULSE 97; RESP 18; TEMP 36.6; O2SAT 95
[2020-11-11 01:54] LABS: Glucose Point of Care 80 mg/dl (65-105)
[2020-11-11 04:00] VITALS: PULSE 79
[2020-11-11 08:25] LABS: Glucose Point of Care 197 mg/dl (65-105)
[2020-11-11 09:07] VITALS: PULSE 64
[2020-11-11] MEDS: METOPROLOL TARTRATE 50 MG TAB PO (09:07)
[2020-11-11] MEDS: lisinopriL 5 MG TABLET PO (09:07)
[2020-11-11] MEDS: ASPIRIN 81 MG ENTERIC TABLET PO (09:07)
[2020-11-11] MEDS: FLUDROCORTISONE ACETATE 0.1 MG TABLET PO (09:07)
[2020-11-11] MEDS: ENOXAPARIN 40 MG/0.4 ML SYRINGE SUB-Q (09:07)
[2020-11-11] MEDS: MAGNESIUM OXIDE 400 MG TABLET PO (09:07)
[2020-11-11] MEDS: GABAPENTIN 400 MG CAPSULE PO ×2 (09:08→15:56)
[2020-11-11] MEDS: INSULIN GLARGINE (*BKC) 100 UNITS/ML 30 UNITS SUB-Q (09:19)
[2020-11-11 09:25] VITALS: BP 186/70; PULSE 94; RESP 10; TEMP 37.2; O2SAT 97
[2020-11-11 09:26] VITALS: PULSE 94; RESP 10; O2SAT 97
[2020-11-11 09:36] LABS: Anion Gap 12 mmol/L (8-16); Blood Urea Nitrogen 43 mg/dL (9-20); Calcium 8.3 mg/dL (8.4-10.2); Carbon Dioxide 28 mmol/L (22-30); Chloride 101 mmol/L (98-107); Estimated CRCL calculation 57 ml/min; Estimated Glomerular Filt Rate 51; Glucose 261 mg/dL (65-110); Magnesium 2.3 mg/dL (1.6-2.3); Potassium 3.7 mmol/L (3.4-5.0); Sodium 141 mmol/L (137-145)
--- NOTE | 2020-11-11 10:17 | PCCDE ---
Consult received 11/08; pt admitted 11/08 with DKA, fall, back pain. Pt familiar from multiple previous admits. INSULIN ORDERS NOTED: 11/09 30 units Lantus q12 hr, 20 units Novolog TID WM however it is noted that Lantus has been held at HS and has only been getting 30 units OD since admit. His BG was down to 80mg/dl yesterday at HS. Called Dr Bonilla and advised of insulin holds and BG and recommended to reduce insulin to weight based doses of 30 units Lantus OD and 8 units Novolog TID WM and add moderate dose correction scale.
[2020-11-11 12:26] LABS: Glucose Point of Care 296 mg/dl (65-105)
[2020-11-11] MEDS: INSULIN ASPART (*BKC) 100 UNITS/ML 20 UNITS SUB-Q (12:34)
[2020-11-11 14:54] VITALS: BP 160/75; PULSE 86; RESP 10; TEMP 37.1; O2SAT 96
--- NOTE | 2020-11-11 15:16 | PC.NURSE ---
On 11/11/20, the student, Cherie Quintana, provided care and completed [facility] documentation on this patient. I have reviewed the student's documentation and agree with the findings.
--- NOTE | 2020-11-11 16:21 | PM.DS ---
DS: Admitting Diagnosis Discharge Date 11/11/2020 Admitting Diagnosis Chief Complaint: Fall DS: Discharge Diagnosis Discharge Diagnosis (1) Fall: Qualifiers: Encounter type: initial encounter Qualified Code(s): W19.XXXA - Unspecified fall, initial encounter Code(s): W19.XXXA - Unspecified fall, initial encounter Status: Acute Assessment and Plan: Patient had a fall in the shower on 11/08/2020, patient says he hit his head and back. His fall could be related to multiple factors, DKA with hypovolemia/dehydration, orthostatic hypotension, elevated troponin present on admission however has chronic troponin elevation CT head negative for any intracranial injury -CT scan of the thoracic spine did not show any abnormality CT abdomen without any abnormality (2) DKA (diabetic ketoacidosis): Qualifiers: Diabetes mellitus complication detail: without coma Diabetes mellitus type: other specified (including SHILA) Qualified Code(s): E13.10 - Other specified diabetes mellitus with ketoacidosis without coma Code(s): E11.10 - Type 2 diabetes mellitus with ketoacidosis without coma Status: Acute Assessment and Plan: Patient had blood sugars of 600 in the ER, positive beta hydroxybutyrate and anion gap of 20. Patient was diagnosed with DKA, given 2 L of fluids, started on insulin infusion per DKA protocol and transferred to the ICU for further management. Anion gap has closed and is transitioned to Lantus lispro and off insulin drip now Diabetic diet Hemoglobin A1c 10.8 11/10 today patient states feeling tired and fatigue, is currently on Lantus 30 units b.i.d., aspart 20 units t.i.d. with meals and sliding scale patient blood sugars are trending close to 200, will monitor patient 1 more day and will discharge the patient tomorrow (3) Paroxysmal atrial fibrillation: Code(s): I48.0 - Paroxysmal atrial fibrillation Status: Chronic Assessment and Plan: Currently in sinus rhythm, rate controlled, patient is not on any anticoagulation at home Restart aspirin and metoprolol (4) Acute renal failure superimposed on stage 3 chronic kidney disease: Qualifiers: Acute renal failure type: unspecified Chronic kidney disease stage 3 subtype: unspecified whether 3a or 3b Qualified Code(s): N17.9 - Acute kidney failure, unspecified; N18.30 - Chronic kidney disease, stage 3 unspecified Code(s): N17.9 - Acute kidney failure, unspecified; N18.30 - Chronic kidney disease, stage 3 unspecified Status: Acute Assessment and Plan: Acute on chronic renal disease likely related to DKA, hypovolemia, decreased p.o. intake Admission creatinine of 2.8 baseline creatinine in mid 1s currently 2.2 (5) Hypertension: Qualifiers: Hypertension type: essential hypertension Qualified Code(s): I10 - Essential (primary) hypertension Code(s): I10 - Essential (primary) hypertension Status: Chronic Assessment and Plan: Will continue lisinopril and metoprolol (6) DVT prophylaxis: Code(s): Z29.9 - Encounter for prophylactic measures, unspecified Status: Acute Assessment and Plan: Lovenox (7) Elevated troponin: Code(s): R79.89 - Other specified abnormal findings of blood chemistry Status: Acute Assessment and Plan: Chronically elevated however was elevated to 1.3 subsequent levels slowly dropping Could be type 2 CT due to underlying DKA and hyperglycemia EKG with similar changes compared to last admission No known history of coronary artery disease Negative Lexiscan stress test in 11/27/2018 with no ischemia ejection fraction more than 70% Follows with Dr. Kaplan as an outpatient basis Echo from 07/2020 reviewed Will consult cardiology for further evaluation (8) Orthostatic hypotension: Code(s): I95.1 - Orthostatic hypotension Status: Resolved Assessment and Plan: Chronic problem seconda
== END 2020-11-11 17:10 | disposition short-term general hospital (02) | DRG 637 ==
LOC: ANHED 23:55 → ANHICU 11-09 10:52 → ANH3MEDSUR 11-10 10:14 → ANHICU 11-12 13:45
PROVIDERS: Internal Medicine; Admitting Provider Internal Medicine; Emergency Provider Emergency Medicine; PCP Family Medicine; Visit Provider Family Medicine
DX: E11.10 Type 2 diabetes mellitus with ketoacidosis without coma (principal); I21.A1 Myocardial infarction type 2; N17.9 Acute kidney failure, unspecified; I12.9 Hypertensive chronic kidney disease with stage 1 through stage 4 chronic kidney disease, or unspecified chronic kidney disease; E11.22 Type 2 diabetes mellitus with diabetic chronic kidney disease; N18.30 Chronic kidney disease, stage 3 unspecified; Z20.822 Contact with and (suspected) exposure to COVID-19; I48.0 Paroxysmal atrial fibrillation; I95.1 Orthostatic hypotension; I65.29 Occlusion and stenosis of unspecified carotid artery; W18.2XXA Fall in (into) shower or empty bathtub, initial encounter; D64.9 Anemia, unspecified; I25.10 Atherosclerotic heart disease of native coronary artery without angina pectoris; E11.42 Type 2 diabetes mellitus with diabetic polyneuropathy; E11.319 Type 2 diabetes mellitus with unspecified diabetic retinopathy without macular edema; E11.21 Type 2 diabetes mellitus with diabetic nephropathy; M19.90 Unspecified osteoarthritis, unspecified site; E78.5 Hyperlipidemia, unspecified; I25.2 Old myocardial infarction; Z86.73 Personal history of transient ischemic attack (TIA), and cerebral infarction without residual deficits; Z90.49 Acquired absence of other specified parts of digestive tract; Z98.42 Cataract extraction status, left eye; Z98.41 Cataract extraction status, right eye; R09.02 Hypoxemia
CPT/HCPCS: 36415; 70450; 71045; 72128; 74176; 80048; 80076; 81001; 82010; 82803; 82948; 83036; 83605; 83690; 83735; 84100; 84484; 85025; 86140; 93005; 93880; 96361; 96374; 96375; 97161; 97165; 99285; A9270; C9803; J1650; J1815; J2270; J2405; J3480; J7030; U0003; U0005

== ENCOUNTER 2020-11-11 18:15 | Inpatient (IN) | payer MEDICARE, MEDICAID, SELFPAY ==
--- NOTE | ~2020-11-11 | NM_ITS ---
EXAMINATION: NM john stress w perfusion DATE: 11/16/2020 12:55 CDT INDICATION: Syncope. Abnormal EKG. TECHNIQUE: Rest images were obtained following intravenous administration of 10.2 mCi Tc99m tetrofosm in (Myoview). The patient was infused intravenously with Lexiscan (regadenoson). Then, 32 mCi Tc99m t etrofosmin (Myoview) was administered intravenously, and stress images were obtained. Data was recons tructed into short axis and horizontal and vertical long axis SPECT images. Gated SPECT images were a lso obtained. COMPARISON: None. FINDINGS: There is no definite reversible or fixed perfusion abnormality to suggest ischemia or infar ction. There is no segmental wall motion abnormality. Left ventricular ejection fraction measures 5 8%. IMPRESSION: 1. No definite ischemia or infarct. 2. Mildly decreased left ventricular ejection fraction measuring 50%. Reviewed, dictated and finalized at location A.
--- NOTE | ~2020-11-11 | CT_ITS ---
EXAMINATION: CT brain wo con DATE: 11/11/2020 19:06 INDICATION: Generalized paresis TECHNIQUE: Computed tomography (CT) of the head was performed without intravenous contrast. The mA wa s adjusted according to patient size. Iterative reconstruction technique was employed. Exam dose: 68 1.00 mGy-cm total exam DLP. COMPARISON: 11/09/2020 CT brain FINDINGS: There is agenesis of the corpus callosum. No intracranial mass lesion or hemorrhage, midline shift or mass effect effect. No subdural or epidur al hematoma. No skull fracture. The mastoid air cells and paranasal sinuses are unremarkable. IMPRESSION: Agenesis of the corpus callosum No acute intracranial finding or significant new finding since 11/09/2020 Reviewed, dictated and finalized at Location [facility]. Reviewed, dictated and finalized at location A.
[2020-11-11 18:20] VITALS: BP 127/72; PULSE 97; RESP 16; TEMP 37.1; O2SAT 97
--- NOTE | 2020-11-11 18:24 | ECG_ITS ---
Measurements Intervals [place] Rate: 97 P: 36 CT: 168 QRS: 75 QRSD: 99 T: 227 QT: 359 QTc: 457 Interpretive Statements SINUS RHYTHM ATRIAL PREMATURE COMPLEX POSSIBLE LEFT ATRIAL ENLARGEMENT LEFT VENTRICULAR HYPERTROPHY AND ST-T CHANGE ST-T WAVE ABNORMALITY IN ANTEROLAT/INF LEADS- CONSIDER ISCHEMIA BASELINE WANDER- I, II ABNORMAL ECG Electronically Signed On 11-11-2020 20:15:06 CDT by Colin Moreland D.O.
--- NOTE | 2020-11-11 18:32 | ED.SYNCOPE ---
HPI - Syncope General Chief Complaint: Recheck/Abnormal Lab/Rx Stated Complaint: UNRESPONSIVE Time Seen by Provider: 11/11/20 18:18 Source: patient and EMS Mode of arrival: EMS Limitations: no limitations History of Present Illness HPI narrative: 65-year-old male Patient was hospitalized for DKA and discharged from the hospital approximately 90 minutes before arriving to the ED via EMS Apparently he proceeded to the bus stop where he is not sure what happened but in any event he went to the ground and was thought unresponsive by bystanders so EMS was called [facility] reports that they too thought that he was unresponsive, although his level of consciousness rapidly improved; they did not see any seizure type activity and he was not incontinent They reported a normal blood sugar He apparently has had a number of episodes like this and there has been some apparent disagreement upon whether he is having syncope, stumbling and tripping and falling, or even having seizures He has a chronically abnormal EKG and a chronically mildly elevated troponin, he had an echo 3 months ago that showed some mild pulmonary hypertension and mild diastolic dysfunction, I cannot see that he is ever had a heart cath or an EEG Denies head injury, denies headache, denies chest pain MD complaint: loss of consciousness Related Data Home Medications Medication Instructions Recorded Confirmed aspirin [Aspirin Low Dose] 81 mg PO DAILY 01/08/19 11/09/20 atorvastatin 40 mg PO HS 01/08/19 11/09/20 gabapentin 400 mg PO TID 01/08/19 11/09/20 insulin aspart U-100 [Novolog 20 units SUBCUT TIDWM 10/31/19 11/09/20 U-100 Insulin aspart] Allergies Allergy/AdvReac Type Severity Reaction Status Date / Time No Known Allergies Allergy Verified 11/11/20 18:24 Review of Systems Review of Systems: All systems reviewed & are unremarkable except as noted in HPI and below Constitutional: Constitutional: Reports no additional constitutional complaints, Denies chills, Reports fatigue, Denies fever(s), Denies headache(s) and Reports weakness Eyes: Eyes: Reports no additional eye complaints and Denies change in vision ENT: Denies headache(s) and Denies sore throat Cardiovascular: Cardiovascular: Denies chest pain and Denies dyspnea Respiratory: Respiratory: Denies cough and Denies dyspnea Gastrointestinal: Gastrointestinal: Denies abdominal pain and Denies vomiting Musculoskeletal: Musculoskeletal: Denies deformity, Denies arthralgias, Denies joint swelling and Denies numbness Integumentary/Breasts: Skin/Breast: Denies wounds [facility] Past Medical History Medical History (Updated 11/11/20 @ 18:51 by Allen Ortega MD) Arthritis CAD (coronary artery disease) Negative stress test November 2018 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 Diabetic nephropathy Diabetic retinopathy S/p retinal surgery Diastolic dysfunction Noted on prior echocardiogram but most recent echocardiogram demonstrating hyperdynamic left ventricle with EF greater than 70% with no mention of diastolic dysfunction Essential hypertension History of angina Hyperlipidemia Kidney stones NSTEMI (non-ST elevated myocardial infarction) With chronic troponin elevation Orthostatic hypotension Paroxysmal atrial fibrillation Not on anticoagulation due to high has bled score/high fall risk Peripheral neuropathy Surgical History Surgical History History of cholecystectomy History of loop recorder patient states that it no longer works. Status post cataract extraction of both eyes with insertion of intraocular lens Family Histo
[2020-11-11 18:39] LABS: Basophils Absolute Auto 0.1 K/mm3 (0.0-0.1); Basophils Percent Auto 0.8 % (0.2-1.2); Eosinophils Absolute Auto 0.3 K/mm3 (0-0.3); Eosinophils Percent Auto 3.2 % (0-4.4); Hematocrit 40.3 % (42.0-52.0); Hemoglobin 13.1 g/dL (14.0-18.0); Immature Granulocyte Absolute 0.04 K/mm3 (0.00-0.031); Immature Granulocyte Percent A 0.5 % (0-0.5); Lymphocytes Absolute Auto 1.69 K/mm3 (0.9-3.2); Lymphocytes Percent Auto 19.8 % (18.3-44.2); Mean Corpuscular HGB Conc 32.5 g/dl (32-36); Mean Corpuscular Hemoglobin 30.9 pg (26-34); Mean Platelet Volume 10.7 fl (7.4-10.4); Monocytes Absolute Auto 0.6 K/mm3 (0.1-0.6); Monocytes Percent Auto 6.5 % (2.6-8.5); Neutrophils Absolute Auto 5.9 K/mm3 (1.3-6.7); Neutrophils Percent Auto 69.2 % (45.5-73.1); Platelet Count Result 279 k/mm3 (150-375); Red Blood Count 4.24 M/mm3 (4.6-6.20); Red Cell Distribution Width 14.5 % (11.5-14.5); White Blood Count 8.5 K/mm3 (4.5-10.0)
[2020-11-11 18:52] LABS: Anion Gap 11 mmol/L (8-16); Blood Urea Nitrogen 37 mg/dL (9-20); Calcium 8.8 mg/dL (8.4-10.2); Carbon Dioxide 31 mmol/L (22-30); Chloride 99 mmol/L (98-107); Estimated CRCL calculation 57 ml/min; Estimated Glomerular Filt Rate 47; Glucose 166 mg/dL (65-110); Potassium 3.4 mmol/L (3.4-5.0); Sodium 141 mmol/L (137-145)
[2020-11-11 19:10] LABS: Troponin I 0.351 ng/mL (0.000-0.034)
[2020-11-11 19:19] LABS: Glucose Point of Care 154 mg/dl (65-105)
[2020-11-11 19:20] VITALS: BP 166/74; PULSE 96; RESP 21; O2SAT 100
--- NOTE | 2020-11-11 19:20 | PC.NURSE ---
Assumed care of pt at this time. Pt alert, supine on stretcher. Pt updated on POC, not request at this time.
--- NOTE | 2020-11-11 21:17 | PM.IMHP ---
H&P: HPI History of Present Illness Date/Time: 11/11/20 21:17 Chief Complaint: Syncope Narrative: This is a 65-year-old male with past medical history significant for chronic kidney disease, chronic elevation of troponins, orthostatic hypotension, who was discharged home from the hospital yesterday after he had been placed in observation due to fall there was questionable syncopal episode which patient stated that there was some not such however while he was at the bus stop after discharge he lost consciousness and bystanders called EMS. As per EMS patient was unresponsive at time of arrival but regaining consciousness at that moment. Patient denies any vision changes he felt dizzy and lightheaded prior to passing out no chest pain, no vertigo , no diaphoresis, no palpitations. Preliminary workup was essentially nonrevealing. Review of Systems Review of Systems: Syncope Constitutional: Constitutional: Denies chills, Denies fatigue, Denies fever(s), Denies lethargy, Denies malaise and Denies weakness Eyes: Eyes: Denies change in vision ENT: Denies dysphagia, Denies vertigo, Denies nasal congestion, Denies nasal discharge, Denies nasal obstruction and Denies odynophagia Cardiovascular: Cardiovascular: Denies irregular heart rhythm, Denies claudication, Reports leg edema, Reports lightheadedness, Denies radiating jaw, neck or arm pain, Denies palpitations, Denies dyspnea and Denies dyspnea on exertion Respiratory: Respiratory: Denies cough and Denies dyspnea Gastrointestinal: Gastrointestinal: Denies abdominal pain, Denies dyspepsia, Denies heartburn, Denies diarrhea, Denies nausea and Denies vomiting Genitourinary: Genitourinary: Reports no additional male genitourinary complaints Musculoskeletal: Musculoskeletal: Reports no additional musculoskeletal complaints Integumentary/Breasts: Skin/Breast: Reports system reviewed and no additional complaints, except as docu Neurologic: Reports system reviewed and no additional complaints, except as documented Psychiatric: Psychiatric: Reports no additional psychiatric complaints Endocrine: Endocrine: Reports no additional endocrine complaints Hematologic/Lymphatic: Hematologic/Lymphatic: Reports no additional hematologic/lymphatic complaints Allergic/Immunologic: Allergic/Immunologic: Reports no additional allergic/immunologic complaints PMFSH Past Medical History Medical History (Updated 11/11/20 @ 18:51 by Allen Ortega MD) Arthritis CAD (coronary artery disease) Negative stress test November 2018 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 Diabetic nephropathy Diabetic retinopathy S/p retinal surgery Diastolic dysfunction Noted on prior echocardiogram but most recent echocardiogram demonstrating hyperdynamic left ventricle with EF greater than 70% with no mention of diastolic dysfunction Essential hypertension History of angina Hyperlipidemia Kidney stones NSTEMI (non-ST elevated myocardial infarction) With chronic troponin elevation Orthostatic hypotension Paroxysmal atrial fibrillation Not on anticoagulation due to high has bled score/high fall risk Peripheral neuropathy Surgical History Surgical History History of cholecystectomy History of loop recorder patient states that it no longer works. Status post cataract extraction of both eyes with insertion of intraocular lens Family History Family History Sibling Hypertension Father Polycystic kidney disease Colon cancer Diabetes mellitus Prostate carcinoma Mother Cerebrovascular accident
[2020-11-11 21:21] VITALS: BP 179/82; PULSE 102; RESP 19; O2SAT 98
--- NOTE | 2020-11-11 21:25 | PC.NURSE ---
Per VORB by EDPgualberto to give home medication of 5mg PO Lisinopril.
[2020-11-11] MEDS: LACTATED RINGERS 1,000 ML 125 ML IV CONT (21:54)
[2020-11-11] MEDS: lisinopriL 5 MG TABLET PO (22:02)
[2020-11-11 22:23] LABS: Troponin I 0.295 ng/mL (0.000-0.034)
[2020-11-11 22:27] VITALS: BP 176/87; PULSE 112; RESP 22; O2SAT 97
[2020-11-11 23:10] VITALS: BP 155/71; PULSE 110; RESP 20; O2SAT 99
[2020-11-11 23:25] VITALS: BP 119/51; PULSE 112; RESP 18; TEMP 36.4; O2SAT 99; BMI 28.9; BMI 30.6
--- NOTE | 2020-11-11 23:28 | PC.NURSE ---
This patient, Jorge Alberto Cortez, was admitted to IMU Room 205-01 on 11/11/20 at 2314. Patient/family oriented to hospital policies and general routines including ID bracelet, bed and alarms, visiting hours, pain management, procedures, bathroom and other care routines, personal items, smoking policy, room service/diet, and visiting hours. Information on how to activate the Rapid Response Team has been discussed. Patient/Family are encouraged to report perceived risks to care and to ask questions if they do not understand what they are told or what they should do.
[2020-11-12] VITALS (19 sets, daily range): BP systolic 82–203; BP diastolic 20–101; PULSE 81–117; RESP 16–22; TEMP 35.8–37.3; O2SAT 96–99
--- NOTE | 2020-11-12 01:15 | PC.NURSE ---
Assisted patient to the bathroom. He is very unsteady on his feet and not wanting assistance. Advised I don't want him to fall. Patient also now refusing his IV fluids (LR at 125cc/hr) because it makes him need to urinate. Wanting breakfast, advised that breakfast will be at approx 0830. Assisted back to bed and bed alarm is set.
[2020-11-12 02:24] LABS: Troponin I 0.256 ng/mL (0.000-0.034)
--- NOTE | 2020-11-12 04:00 | PC.NURSE ---
I have repeatedly asked the patient to call for help if he needs to get out of bed, but the patient does not follow direction. The bed alarm is on since the patient has a history of falls. He has gotten up 3 times thus far without calling for help.
--- NOTE | 2020-11-12 04:43 | PC.NURSE ---
Patient continues to get out of bed with the bed alarm on. Now wants to go home . Walked out of the room with this nurse's assistance and sat down in a wheel chair to be escorted back to bed. Remains alert X 3, understands he is at [facility]. Bed alarm remains activated.
[2020-11-12 09:49] LABS: Glucose Point of Care 317 mg/dl (65-105)
[2020-11-12] MEDS: FLUDROCORTISONE ACETATE 0.1 MG TABLET PO (10:04)
[2020-11-12] MEDS: METOPROLOL TARTRATE 50 MG TAB PO ×2 (10:05→19:59)
[2020-11-12] MEDS: GABAPENTIN 400 MG CAPSULE PO ×3 (10:05→16:42)
[2020-11-12] MEDS: ASPIRIN 81 MG ENTERIC TABLET PO (10:05)
[2020-11-12] MEDS: lisinopriL 5 MG TABLET PO (10:05)
[2020-11-12] MEDS: MAGNESIUM OXIDE 400 MG TABLET PO (10:06)
[2020-11-12] MEDS: INSULIN GLARGINE (*BKC) 100 UNITS/ML 20 UNITS SUB-Q (10:32)
[2020-11-12] MEDS: INSULIN ASPART (*BKC) 100 UNITS/ML SUB-Q ×3 (10:32→16:43)
[2020-11-12] MEDS: INSULIN ASPART (*BKC) 100 UNITS/ML 6 UNITS SUB-Q ×2 (13:16→16:42)
[2020-11-12 14:12] LABS: Glucose Point of Care 299 mg/dl (65-105)
--- NOTE | 2020-11-12 15:05 | PCPTNOTE ---
Attempted to see patient this afternoon for PT evaluation, patient refused at this time too tired and is going back to sleep, will try again tomorrow.
--- NOTE | 2020-11-12 17:21 | PM.IMPN ---
Progress Note: A&P Assessment and Plan (1) Syncope and collapse: Code(s): R55 - Syncope and collapse Status: Acute Assessment and Plan: Patient is known to have orthostatic hypotension maybe this is playing a role on this episodes CT of the head reviewed Patient has had extensive workup in the past Might need Holter monitoring in the outpatient setting 11/12, on 11/11 patient was seen by me and work with physical therapy requiring minimal assist, and was clinically stable and patient was discharged however later that evening patient had a syncopal episode and was brought to the emergency depart further evaluation, patient had a CT scan of the head and there was no acute injury, carotid ultrasound on right internal carotid artery showed 50-69 stenosis on left internal carotid artery less than 50%, patient does have a history of orthostatic hypotension in the past patient was treated with florinef, however Florinef is not listed in his medication,he does have a loop record and patient is supposed follow-up with his primary cardiology, however patient appears more depressed and does not provide detail history review of symptoms, will continue to monitor and have PT OT evaluate the patient. (2) Carotid artery stenosis: Code(s): I65.29 - Occlusion and stenosis of unspecified carotid artery Status: Acute Assessment and Plan: Continue aspirin and Lipitor (3) Fall: Qualifiers: Encounter type: initial encounter Qualified Code(s): W19.XXXA - Unspecified fall, initial encounter Code(s): W19.XXXA - Unspecified fall, initial encounter Status: Acute Assessment and Plan: No trauma (4) Paroxysmal atrial fibrillation: Code(s): I48.0 - Paroxysmal atrial fibrillation Status: Chronic Assessment and Plan: Continue metoprolol Rate controlled (5) Chronic kidney disease: Qualifiers: Chronic kidney disease stage: stage 3 (moderate) Qualified Code(s): N18.3 - Chronic kidney disease, stage 3 (moderate) Code(s): N18.9 - Chronic kidney disease, unspecified Status: Chronic Assessment and Plan: Creatinine is a patient's baseline (6) Elevated troponin: Code(s): R79.89 - Other specified abnormal findings of blood chemistry Status: Acute Assessment and Plan: Patient with chronic elevation of troponins Subjective Date/time seen: 11/12/20 17:21 Chief Complaint: Syncope Narrative: This is a 65-year-old male with past medical history significant for chronic kidney disease, chronic elevation of troponins, orthostatic hypotension, who was discharged home from the hospital yesterday after he had been placed in observation due to fall there was questionable syncopal episode which patient stated that there was some not such however while he was at the bus stop after discharge he lost consciousness and bystanders called EMS. As per EMS patient was unresponsive at time of arrival but regaining consciousness at that moment. Patient denies any vision changes he felt dizzy and lightheaded prior to passing out no chest pain, no vertigo , no diaphoresis, no palpitations. Preliminary workup was essentially nonrevealing. 11/12, on 11/11 patient was seen by me and work with physical therapy requiring minimal assist, and was clinically stable and patient was discharged however later that evening patient had a syncopal episode and was brought to the emergency depart further evaluation, patient had a CT scan of the head and there was no acute injury, carotid ultrasound on right internal carotid artery showed 50-69 stenosis on left internal carotid artery less than 50%, patient does have a history of orthostatic hypotension in the past patient was treated with florinef, however Florinef is not listed in his medication,he does have a loop record and patient is supposed follow-up with his primary cardiology, however patient appears more depressed and
[2020-11-12 17:42] LABS: Glucose Point of Care 239 mg/dl (65-105)
[2020-11-12] MEDS: INSULIN GLARGINE (*BKC) 100 UNITS/ML 32 UNITS SUB-Q (20:00)
[2020-11-12] MEDS: ATORVASTATIN 40 MG TABLET PO (20:00)
[2020-11-12 20:41] LABS: Glucose Point of Care 293 mg/dl (65-105)
[2020-11-12] MEDS: LACTATED RINGERS 1,000 ML 125 ML IV CONT (21:51)
[2020-11-13] VITALS (22 sets, daily range): BP systolic 84–172; BP diastolic 46–88; PULSE 75–106; RESP 16–20; TEMP 36.2–37.2; O2SAT 95–99
[2020-11-13] MEDS: LACTATED RINGERS 1,000 ML 125 ML IV CONT ×2 (05:36→17:00)
[2020-11-13 06:58] LABS: Hematocrit 32.9 % (42.0-52.0); Hemoglobin 10.6 g/dL (14.0-18.0); Mean Corpuscular HGB Conc 32.2 g/dl (32-36); Mean Corpuscular Hemoglobin 30.7 pg (26-34); Mean Corpuscular Volume 95.4 fl (80-100); Mean Platelet Volume 11.1 fl (7.4-10.4); Platelet Count Result 214 k/mm3 (150-375); Red Blood Count 3.45 M/mm3 (4.6-6.20); Red Cell Distribution Width 14.6 % (11.5-14.5); White Blood Count 6.9 K/mm3 (4.5-10.0)
[2020-11-13 07:14] LABS: Anion Gap 5 mmol/L (8-16); Blood Urea Nitrogen 25 mg/dL (9-20); Calcium 8.2 mg/dL (8.4-10.2); Carbon Dioxide 30 mmol/L (22-30); Chloride 102 mmol/L (98-107); Estimated CRCL calculation 61 ml/min; Estimated Glomerular Filt Rate 55; Glucose 251 mg/dL (65-110); Magnesium 2.1 mg/dL (1.6-2.3); Potassium 3.4 mmol/L (3.4-5.0); Sodium 137 mmol/L (137-145)
[2020-11-13 08:58] LABS: Glucose Point of Care 225 mg/dl (65-105)
[2020-11-13] MEDS: INSULIN ASPART (*BKC) 100 UNITS/ML 6 UNITS SUB-Q ×3 (09:16→17:02)
[2020-11-13] MEDS: INSULIN ASPART (*BKC) 100 UNITS/ML SUB-Q ×2 (09:17→17:02)
[2020-11-13] MEDS: ASPIRIN 81 MG ENTERIC TABLET PO (09:18)
[2020-11-13] MEDS: lisinopriL 5 MG TABLET PO (09:18)
[2020-11-13] MEDS: FLUDROCORTISONE ACETATE 0.1 MG TABLET PO (09:18)
[2020-11-13] MEDS: MAGNESIUM OXIDE 400 MG TABLET PO (09:18)
[2020-11-13] MEDS: GABAPENTIN 400 MG CAPSULE PO ×3 (09:18→17:00)
--- NOTE | 2020-11-13 10:02 | PCPTNOTE ---
On 11/13/20, the student, Francesco Babb, provided care and completed [facility] documentation on this patient. I have reviewed the student's documentation and agree with the findings.
[2020-11-13] MEDS: METOPROLOL TARTRATE 50 MG TAB PO ×2 (10:26→20:45)
[2020-11-13 11:42] LABS: Glucose Point of Care 177 mg/dl (65-105)
[2020-11-13 16:58] LABS: Glucose Point of Care 233 mg/dl (65-105)
--- NOTE | 2020-11-13 17:49 | PM.IMPN ---
Progress Note: A&P Assessment and Plan (1) Syncope and collapse: Code(s): R55 - Syncope and collapse Status: Acute Assessment and Plan: Patient is known to have orthostatic hypotension maybe this is playing a role on this episodes CT of the head reviewed Patient has had extensive workup in the past Might need Holter monitoring in the outpatient setting 11/13/20 17:49 11/12, on 11/11 patient was seen by me and work with physical therapy requiring minimal assist, and was clinically stable and patient was discharged however later that evening patient had a syncopal episode and was brought to the emergency depart further evaluation, patient had a CT scan of the head and there was no acute injury, carotid ultrasound on right internal carotid artery showed 50-69 stenosis on left internal carotid artery less than 50%, patient does have a history of orthostatic hypotension in the past patient was treated with florinef, however Florinef is not listed in his medication,he does have a loop record and patient is supposed follow-up with his primary cardiology, however patient appears more depressed and does not provide detail history review of symptoms, will continue to monitor and have PT OT evaluate the patient. 11/13 patient still remains quite somnolent and appears depressed, his blood pressure fluctuates, and patient is orthostatic, may need to restart Florinef, will continue to monitor will have PT OT evaluate, patient will benefit from antidepression will start the patient on Zoloft 25mg daily, this will effect his diabetes will monitor. will continue to monitor further recommendation to follow. (2) Carotid artery stenosis: Code(s): I65.29 - Occlusion and stenosis of unspecified carotid artery Status: Acute Assessment and Plan: Continue aspirin and Lipitor (3) Fall: Qualifiers: Encounter type: initial encounter Qualified Code(s): W19.XXXA - Unspecified fall, initial encounter Code(s): W19.XXXA - Unspecified fall, initial encounter Status: Acute Assessment and Plan: No trauma (4) Paroxysmal atrial fibrillation: Code(s): I48.0 - Paroxysmal atrial fibrillation Status: Chronic Assessment and Plan: Continue metoprolol Rate controlled (5) Chronic kidney disease: Qualifiers: Chronic kidney disease stage: stage 3 (moderate) Qualified Code(s): N18.3 - Chronic kidney disease, stage 3 (moderate) Code(s): N18.9 - Chronic kidney disease, unspecified Status: Chronic Assessment and Plan: Creatinine is a patient's baseline (6) Elevated troponin: Code(s): R79.89 - Other specified abnormal findings of blood chemistry Status: Acute Assessment and Plan: Patient with chronic elevation of troponins Subjective Date/time seen: 11/13/20 17:49 11/12, on 11/11 patient was seen by me and work with physical therapy requiring minimal assist, and was clinically stable and patient was discharged however later that evening patient had a syncopal episode and was brought to the emergency depart further evaluation, patient had a CT scan of the head and there was no acute injury, carotid ultrasound on right internal carotid artery showed 50-69 stenosis on left internal carotid artery less than 50%, patient does have a history of orthostatic hypotension in the past patient was treated with florinef, however Florinef is not listed in his medication,he does have a loop record and patient is supposed follow-up with his primary cardiology, however patient appears more depressed and does not provide detail history review of symptoms, will continue to monitor and have PT OT evaluate the patient. 11/13 patient still remains quite somnolent and appears depressed, his blood pressure fluctuates, and patient is orthostatic, may need to restart Florinef, will continue to monitor will have PT OT evaluate, patient will benefit from antidepression
[2020-11-13 20:23] LABS: Glucose Point of Care 222 mg/dl (65-105)
[2020-11-13] MEDS: SERTRALINE HCL 25 MG TABLET PO (20:45)
[2020-11-13] MEDS: ATORVASTATIN 40 MG TABLET PO (20:45)
[2020-11-13] MEDS: INSULIN GLARGINE (*BKC) 100 UNITS/ML 32 UNITS SUB-Q (21:49)
[2020-11-14] VITALS (19 sets, daily range): BP systolic 106–175; BP diastolic 55–96; PULSE 68–94; RESP 18–23; TEMP 35.8–37.1; O2SAT 95–98
--- NOTE | 2020-11-14 | ECHO_ITS ---
Patient Info Name: Jorge Alberto Cortez Age: 65 years : 1955 Gender: Male Ht: 75 in Wt: 234 lbs BSA: 2.39 m2 HR: 66 bpm BP: 139 / 71 mmHg Heart Rhythm: Sinus Rhythm Technical Quality: Fair Exam Date: 11/14/2020 11:14 AM Exam Location: [facility] Pulmonary Patient Status: Inpatient Admit Date: 11/11/2020 Staff Ordering Physician: Franko Galvin MD Sales Manager: Mago John [facility] Attending Provider: Rebekah Dye MD Referring Physician: Kamar MCINTYRE; Exam Type: CA echo dop color flow w con Study Info Indications - syncope Complete two-dimensional, color flow and Doppler transthoracic echocardiogram is performed with contrast to opacify the left ventricle and to improve the deliniation of the left ventricle endocardial borders. Contrast/Agitated Saline Contrast/Ag. Saline: Definity Amount: 4.00 ml Summary 1. Definity contrast injected to improve visualization. 2. There is moderate concentric increased left ventricular wall thickness. 3. Left ventricular systolic function is normal, estimated at >70%. 4. No significant valvular disease. 5. Mildly sclerotic aortic valve. Left Ventricle Left ventricular chamber dimension is normal. Left ventricular systolic function is normal, estimated at >70%. There is moderate concentric increased left ventricular wall thickness. The left ventricular diastolic function is grade I diastolic dysfunction. Definity contrast injected to improve visualization. Right Ventricle Right ventricular chamber dimension is normal. Left Atria Left atrial chamber dimension is normal. Right Atria Right atrial chamber dimension is normal. Aortic Valve The aortic valve is trileaflet. There is mild aortic valve sclerosis. Pulmonic Valve The pulmonic valve is not well visualized. Mitral Valve The mitral valve has normal leaflets. Tricuspid Valve The tricuspid valve leaflets are normal. Pericardium/Pleural The pericardium appears normal. Aorta The aortic root size at the sinus of Valsalva is normal. Left Ventricular Outflow Tract Name Value Normal LVOT 2D LVOT Diameter 2.01 cm LVOT Doppler LVOT Peak Gradient 10 mmHg LVOT Mean Gradient 4 mmHg LVOT VTI 29.35 cm LVOT VTI/AV VTI Ratio 1.03 LVOT Stroke Volume 81.20 ml LVOT CO 5.47 l/min LVOT CI 2.29 L/min/m2 Pulmonic Valve Name Value Normal PV Doppler PV Peak Gradient 4 mmHg Mitral Valve Name Value Normal MV
[2020-11-14] MEDS: LACTATED RINGERS 1,000 ML 125 ML IV CONT ×2 (01:07→09:31)
--- NOTE | 2020-11-14 08:33 | PCOTNOTE ---
Attempted to see patient for skilled OT session at this time. Patient was lying in bed asleep upon entry. Patient was able to be aroused, with COLIN observing fluttering of eyelids with light touch and introduction of COLIN. Patient refused to respond to offering of participation in therapy x3. COLIN clarified that he will need to respond as to not keep bothering him if he is wanting to rest longer. Patient then verbally declined therapy at this time with keeping eyes closed and stated, Please come back later, and shut the light off please. Will attempt to see patient for a second time this date. Continue per POC.
[2020-11-14 08:43] LABS: Hematocrit 32.2 % (42.0-52.0); Hemoglobin 10.7 g/dL (14.0-18.0); Mean Corpuscular HGB Conc 33.2 g/dl (32-36); Mean Corpuscular Hemoglobin 31.6 pg (26-34); Mean Platelet Volume 10.1 fl (7.4-10.4); Platelet Count Result 219 k/mm3 (150-375); Red Blood Count 3.39 M/mm3 (4.6-6.20); Red Cell Distribution Width 14.4 % (11.5-14.5); White Blood Count 5.4 K/mm3 (4.5-10.0)
[2020-11-14] MEDS: ASPIRIN 81 MG ENTERIC TABLET PO (08:47)
[2020-11-14] MEDS: lisinopriL 5 MG TABLET PO (08:47)
[2020-11-14] MEDS: FLUDROCORTISONE ACETATE 0.1 MG TABLET PO (08:47)
[2020-11-14] MEDS: MAGNESIUM OXIDE 400 MG TABLET PO (08:47)
[2020-11-14] MEDS: GABAPENTIN 400 MG CAPSULE PO ×3 (08:47→17:13)
[2020-11-14] MEDS: METOPROLOL TARTRATE 50 MG TAB PO ×2 (08:48→20:25)
[2020-11-14 08:50] LABS: Anion Gap 6 mmol/L (8-16); Blood Urea Nitrogen 17 mg/dL (9-20); Calcium 7.9 mg/dL (8.4-10.2); Carbon Dioxide 32 mmol/L (22-30); Chloride 102 mmol/L (98-107); Estimated CRCL calculation 71 ml/min; Estimated Glomerular Filt Rate > 60; Glucose 261 mg/dL (65-110); Magnesium 1.9 mg/dL (1.6-2.3); Potassium 3.4 mmol/L (3.4-5.0); Sodium 140 mmol/L (137-145)
[2020-11-14] MEDS: INSULIN ASPART (*BKC) 100 UNITS/ML 6 UNITS SUB-Q ×3 (09:08→17:12)
[2020-11-14] MEDS: INSULIN ASPART (*BKC) 100 UNITS/ML SUB-Q (09:08)
[2020-11-14 09:28] LABS: Glucose Point of Care 258 mg/dl (65-105)
--- NOTE | 2020-11-14 09:57 | PM.IMPN ---
Progress Note: A&P Assessment and Plan (1) Syncope and collapse: Code(s): R55 - Syncope and collapse Status: Acute Assessment and Plan: Current episode is worrisome due to occurrence while seated, without premonition, and with injury. 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 The probability that orthostatic hypotension was a factor in the etiology of this particular spell seems low. Posterior circulation TIA is unlikely based upon his carotid dopplers Blood sugar was not excessively elevated or depressed during his acute evaluation. Echo Lexiscan stress EEG Consider implantable monitor (2) Carotid artery stenosis: Qualifiers: Laterality: unspecified laterality Qualified Code(s): I65.29 - Occlusion and stenosis of unspecified carotid artery Code(s): I65.29 - Occlusion and stenosis of unspecified carotid artery Status: Acute Assessment and Plan: Continue aspirin and atorvastatin (3) Paroxysmal atrial fibrillation: Code(s): I48.0 - Paroxysmal atrial fibrillation Status: Chronic Assessment and Plan: Continue metoprolol Rate controlled (4) Chronic kidney disease: Qualifiers: Chronic kidney disease stage: stage 3 (moderate) Qualified Code(s): N18.3 - Chronic kidney disease, stage 3 (moderate) Code(s): N18.9 - Chronic kidney disease, unspecified Status: Chronic Assessment and Plan: Creatinine is at patient's baseline (5) Diabetes mellitus, with long-term current use of insulin: Qualifiers: Diabetes mellitus type: type 2 Diabetes mellitus complication status: with kidney complications Diabetes mellitus complication detail: with chronic kidney disease Chronic kidney disease stage: stage 3 (moderate) Qualified Code(s): E11.22 - Type 2 diabetes mellitus with diabetic chronic kidney disease; N18.3 - Chronic kidney disease, stage 3 (moderate); Z79.4 - MCC (current) use of insulin Code(s): E11.9 - Type 2 diabetes mellitus without complications; Z79.4 - MCC (current) use of insulin Status: Chronic Assessment and Plan: Poor control and adherence at home (6) Orthostatic hypotension: Code(s): I95.1 - Orthostatic hypotension Status: Resolved Assessment and Plan: Recent orthostatic BP checks show drops from 150s to 110s w/o symptoms (7) Hypertension: Qualifiers: Hypertension type: essential hypertension Qualified Code(s): I10 - Essential (primary) hypertension Code(s): I10 - Essential (primary) hypertension Status: Chronic Assessment and Plan: Continue home regimen Monitor Subjective Date/time seen: 11/14/20 09:57 Interval history: 11/14 visit: Admitted with syncope while seated. Sudden onset. No warning. [place] fine prior to episode. Awakened in ED. Injury with left frontal laceration. No focal symptoms. He was fatigued and drowsy for several hours following the episode. No issues with chest pain, sob, edema, weakness, no gi/gu c/o, bleeding. Review of Systems Review of Systems: All systems reviewed & are unremarkable except as noted in HPI and below Exam Narrative: HEENT: PERRL, sclerae nonicteric, pharyngeal mucosa pink and intact NECK: No JVD CHEST: Clear to auscultation. Normal effort. HEART: NL S1/S2, regular, no murmur ABDOMEN: BS+, soft, nontender, no mass, no bruits EXTREMITIES: No cyanosis, edema, or clubbing NEUROLOGIC: CN intact and symmetric to inspection. MUSCULOSKELETAL: Tone and strength symmetric. PSYCH: Alert. Oriented to person, place, and time. Objective Data Vital Signs Vital Signs: Vital Signs - 24 hr 11/13/20 10:00 11/13/20 10:29 11/13/20 10:31 Temperature 99.0 F 99.0 F Pulse Rate 88 88 97 Respiratory Rate 20 20 Blood Pressure 158/63 H 117/56 L Pulse Oximetry 98 98 11/13/20 10:33 11/13/20 11:25 11/13/20 12:00
[2020-11-14 13:04] LABS: Glucose Point of Care 169 mg/dl (65-105)
--- NOTE | 2020-11-14 15:09 | PC.NURSE ---
This patient, Jorge Alberto Cortez, was transferred to [[facility] ] on 11/14/20 at 1505. Personal belongings sent with patient. Report given to [Radha ]. Appropriate documentation sent with patient.
[2020-11-14 17:20] LABS: Glucose Point of Care 200 mg/dl (65-105)
[2020-11-14] MEDS: ATORVASTATIN 40 MG TABLET PO (20:25)
[2020-11-14] MEDS: SERTRALINE HCL 25 MG TABLET PO (20:26)
[2020-11-14] MEDS: INSULIN GLARGINE (*BKC) 100 UNITS/ML 32 UNITS SUB-Q (20:28)
--- NOTE | 2020-11-14 20:35 | PC.NURSE ---
Pt blood sugar high at this time. Pt had just had lunch box prior to blood sugar being taken. Received his scheduled Lantus.
[2020-11-14 21:26] LABS: Glucose Point of Care 357 mg/dl (65-105)
[2020-11-15] VITALS (13 sets, daily range): BP systolic 96–179; BP diastolic 54–83; PULSE 69–108; RESP 16–18; TEMP 36.4–37.2; O2SAT 94–99
[2020-11-15 06:54] LABS: Hemoglobin 11.3 g/dL (14.0-18.0); Mean Corpuscular HGB Conc 33.2 g/dl (32-36); Mean Corpuscular Volume 93.2 fl (80-100); Mean Platelet Volume 10.2 fl (7.4-10.4); Platelet Count Result 219 k/mm3 (150-375); Red Blood Count 3.65 M/mm3 (4.6-6.20); Red Cell Distribution Width 14.3 % (11.5-14.5); White Blood Count 7.1 K/mm3 (4.5-10.0)
[2020-11-15 07:04] LABS: Anion Gap 5 mmol/L (8-16); Blood Urea Nitrogen 15 mg/dL (9-20); Carbon Dioxide 32 mmol/L (22-30); Chloride 102 mmol/L (98-107); Estimated CRCL calculation 71 ml/min; Estimated Glomerular Filt Rate > 60; Glucose 303 mg/dL (65-110); Magnesium 1.9 mg/dL (1.6-2.3); Potassium 3.6 mmol/L (3.4-5.0); Sodium 139 mmol/L (137-145)
[2020-11-15 08:18] LABS: Glucose Point of Care 294 mg/dl (65-105)
--- NOTE | 2020-11-15 08:29 | PCOTNOTE ---
Attempted to see patient at this time for skilled OT session. Patient lying in bed with eyes closed. Patient refused OT session participation at this time stating he is not yet ready to get up for the day while keeping eyes closed. Will attempt to see patient for a second time this date. Continue per POC.
[2020-11-15] MEDS: lisinopriL 5 MG TABLET PO (08:35)
[2020-11-15] MEDS: FLUDROCORTISONE ACETATE 0.1 MG TABLET PO (08:35)
[2020-11-15] MEDS: MAGNESIUM OXIDE 400 MG TABLET PO (08:35)
[2020-11-15] MEDS: ASPIRIN 81 MG ENTERIC TABLET PO (08:35)
[2020-11-15] MEDS: GABAPENTIN 400 MG CAPSULE PO ×3 (08:35→17:01)
[2020-11-15] MEDS: METOPROLOL TARTRATE 50 MG TAB PO ×2 (08:35→20:50)
[2020-11-15] MEDS: INSULIN ASPART (*BKC) 100 UNITS/ML SUB-Q ×3 (08:36→17:02)
[2020-11-15] MEDS: INSULIN ASPART (*BKC) 100 UNITS/ML 6 UNITS SUB-Q ×3 (08:36→17:02)
--- NOTE | 2020-11-15 09:37 | PC.NURSE ---
HEAD FIELD HOCKEY COACH attempted to obtain orthostatic vital signs. However, patient was unable to tolerate standing in one spot for BP.
--- NOTE | 2020-11-15 10:04 | PCOTNOTE ---
Addendum entered by DIXIE Sosa 11/15/20 10:10: OT session not completed this date d/t multiple refusals. Will continue per POC. Original Note: Attempted to see patient for a second time this date. Patient lying in bed, presenting to be asleep upon entry. Patient refused to open eyes while COLIN reintroduced and discussed completion of session. After about 2 minutes, patient finally responded, opening eyes once and refusing session completion. Stated, Nope, I'm not doing anything. I just don't feel like it. DIXIE discussed with patient of benefits of participating in therapy, but patient remained unresponsive to therapist and kept his eyes closed to sleep.
[2020-11-15 12:10] LABS: Glucose Point of Care 244 mg/dl (65-105)
--- NOTE | 2020-11-15 13:09 | PM.IMPN ---
Progress Note: A&P Assessment and Plan (1) Syncope and collapse: Code(s): R55 - Syncope and collapse Status: Acute Assessment and Plan: Current episode is worrisome due to occurrence while seated, without premonition, and with injury. 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 The probability that orthostatic hypotension was a factor in the etiology of this particular spell seems low. Posterior circulation TIA is unlikely based upon his carotid dopplers Blood sugar was not excessively elevated or depressed during his acute evaluation. Echo with LVH, NL LVEF Lexiscan stress pending EEG pending Telemetry unremarkable Consider implantable environmental monitoring specialist (2) Carotid artery stenosis: Qualifiers: Laterality: unspecified laterality Qualified Code(s): I65.29 - Occlusion and stenosis of unspecified carotid artery Code(s): I65.29 - Occlusion and stenosis of unspecified carotid artery Status: Acute Assessment and Plan: Continue aspirin and atorvastatin (3) Paroxysmal atrial fibrillation: Code(s): I48.0 - Paroxysmal atrial fibrillation Status: Chronic Assessment and Plan: Continue metoprolol Rate controlled (4) Chronic kidney disease: Qualifiers: Chronic kidney disease stage: stage 3 (moderate) Qualified Code(s): N18.3 - Chronic kidney disease, stage 3 (moderate) Code(s): N18.9 - Chronic kidney disease, unspecified Status: Chronic Assessment and Plan: Creatinine is at patient's baseline (5) Diabetes mellitus, with long-term current use of insulin: Qualifiers: Diabetes mellitus type: type 2 Diabetes mellitus complication status: with kidney complications Diabetes mellitus complication detail: with chronic kidney disease Chronic kidney disease stage: stage 3 (moderate) Qualified Code(s): E11.22 - Type 2 diabetes mellitus with diabetic chronic kidney disease; N18.3 - Chronic kidney disease, stage 3 (moderate); Z79.4 - care home (current) use of insulin Code(s): E11.9 - Type 2 diabetes mellitus without complications; Z79.4 - emt intermediate (current) use of insulin Status: Chronic Assessment and Plan: Poor control and adherence at home (6) Orthostatic hypotension: Code(s): I95.1 - Orthostatic hypotension Status: Resolved Assessment and Plan: Recent orthostatic BP checks show drops from 150s to 110s w/o symptoms (7) Hypertension: Qualifiers: Hypertension type: essential hypertension Qualified Code(s): I10 - Essential (primary) hypertension Code(s): I10 - Essential (primary) hypertension Status: Chronic Assessment and Plan: Continue home regimen Monitor Subjective Date/time seen: 11/15/20 13:09 Interval history: 11/15 visit: Admitted with syncope while seated. Sudden onset. No warning. [place] fine prior to episode. Awakened in ED. Injury with left frontal laceration. No focal symptoms. He was fatigued and drowsy for several hours following the episode. No issues with chest pain, sob, edema, weakness, no gi/gu c/o, bleeding. Review of Systems Review of Systems: All systems reviewed & are unremarkable except as noted in HPI and below Exam Narrative: HEENT: PERRL, sclerae nonicteric, pharyngeal mucosa pink and intact, HEALING LEFT FRONTAL LACERATION NECK: No JVD CHEST: Clear to auscultation. Normal effort. HEART: NL S1/S2, regular, no murmur ABDOMEN: BS+, soft, nontender, no mass, no bruits EXTREMITIES: No cyanosis, edema, or clubbing NEUROLOGIC: CN intact and symmetric to inspection. MUSCULOSKELETAL: Tone and strength symmetric. PSYCH: Alert. Oriented to person, place, and time. Objective Data Vital Signs Vital Signs: Vital Signs - 24 hr 11/14/20 13:12 11/14/20 14:00 11/14/20 16:00 Temperature 96.4 F L 98.6 F Pulse Rate 75 82 82 Respiratory Rate 23 H 20 Blood
[2020-11-15 17:01] LABS: Glucose Point of Care 236 mg/dl (65-105)
[2020-11-15] MEDS: INSULIN GLARGINE (*BKC) 100 UNITS/ML 32 UNITS SUB-Q (20:50)
[2020-11-15] MEDS: SERTRALINE HCL 25 MG TABLET PO (20:50)
[2020-11-15] MEDS: ATORVASTATIN 40 MG TABLET PO (20:50)
[2020-11-15 21:00] LABS: Glucose Point of Care 225 mg/dl (65-105)
[2020-11-16] VITALS (11 sets, daily range): BP systolic 95–161; BP diastolic 41–74; PULSE 73–98; RESP 16–18; TEMP 36.4–37.4; O2SAT 94–100
--- NOTE | 2020-11-16 00:01 | EST_ITS ---
Patient Info Name: Jorge Alberto Cortez Age: 65 years : 1955 Gender: Male Ht: 75 in Wt: 234 lbs BSA: 2.39 m2 Exam Date: 11/16/2020 11:47 AM Exam Location: [facility] Stress Patient Status: Inpatient Admit Date: 11/11/2020 Staff Ordering Physician: Franko Galvin MD Attending Provider: Rebekah Dye MD Exercise Technologist: Nadine Ramey RDCS Exercise Physician: Rey Marquez MD Exam Type: CA stress john w NM Study Info Indications R94.31 - Abnormal electrocardiogram ECG EKG R55 - Syncope and collapse A regadenoson stress test was performed. Summary 1. Nondiagnostic ECG response to Lexiscan without changes meeting strict criteria for reversible myocardial ischemia compared to baseline. 2. Frequent stress-induced PACs. 3. Please correlate with nuclear medicine images, reported separately. 4. No chest discomfort with stress test. Protocol: Lexiscan Stress ECG Details Stage: REST Duration (min): 4 min : 36 sec HR (bpm): 81 SBP (mmHg): 122 DBP (mmHg): 52 Stage: REST Duration (min): 19 min : 1 sec HR (bpm): 74 SBP (mmHg): 122 DBP (mmHg): 52 Stage: STAGE 1 Duration (min): 1 min : 0 sec HR (bpm): 78 SBP (mmHg): 102 DBP (mmHg): 52 Stage: RECOVERY Duration (min): 1 min : 0 sec HR (bpm): 83 SBP (mmHg): 63 DBP (mmHg): 38 Stage: RECOVERY Duration (min): 2 min : 0 sec HR (bpm): 83 SBP (mmHg): 63 DBP (mmHg): 38 Stage: RECOVERY Duration (min): 3 min : 0 sec HR (bpm): 86 SBP (mmHg): 63 DBP (mmHg): 38 Stage: RECOVERY Duration (min): 4 min : 0 sec HR (bpm): 81 SBP (mmHg): 138 DBP (mmHg): 49 Stage: RECOVERY Duration (min): 5 min : 0 sec HR (bpm): 81 SBP (mmHg): 133 DBP (mmHg): 49 Stage: RECOVERY Duration (min): 6 min : 0 sec HR (bpm): 82 SBP (mmHg): 133 DBP (mmHg): 49 Stage: RECOVERY Duration (min): 6 min : 55 sec HR (bpm): 81 SBP (mmHg): 128 DBP (mmHg): 48 Rest HR: 74 bpm Peak HR: 89 bpm Rest Sys BP: 122 mmHg Peak Sys BP: 138 mmHg Max Pred HR: 155 bpm % Max Pred HR: 57 % Target HR: 132 bpm Max RPP: 12,282 bpm*mmHg BP Response: Patient exhibited a hypotensive response with stress Termination Reason: Completed protocol Cardiac Symptoms: None Total Time: 1 min : 0 sec Rest Sears BP: 52 mmHg Peak Sears BP: 49 mmHg Total Dose: 0.4 mg Resting ECG Sinus rhythm with LVH with marked ST abnormality consider strain versus ischemia. Premature atrial contractions. Stress ECG Nondiagnostic ECG response to Lexiscan without changes meeting strict criteria for reversible myocardial ischemia compared to baseline. Arrhythmias Frequent stress-induced PACs. Report Signatures
[2020-11-16 05:34] LABS: Hematocrit 33.2 % (42.0-52.0); Hemoglobin 10.9 g/dL (14.0-18.0); Mean Corpuscular HGB Conc 32.8 g/dl (32-36); Mean Corpuscular Hemoglobin 30.8 pg (26-34); Mean Corpuscular Volume 93.8 fl (80-100); Mean Platelet Volume 10.7 fl (7.4-10.4); Platelet Count Result 238 k/mm3 (150-375); Red Blood Count 3.54 M/mm3 (4.6-6.20); Red Cell Distribution Width 14.5 % (11.5-14.5); White Blood Count 7.6 K/mm3 (4.5-10.0)
[2020-11-16 05:46] LABS: Anion Gap 5 mmol/L (8-16); Blood Urea Nitrogen 18 mg/dL (9-20); Carbon Dioxide 32 mmol/L (22-30); Chloride 101 mmol/L (98-107); Estimated CRCL calculation 61 ml/min; Estimated Glomerular Filt Rate 55; Glucose 350 mg/dL (65-110); Magnesium 1.9 mg/dL (1.6-2.3); Potassium 3.6 mmol/L (3.4-5.0); Sodium 138 mmol/L (137-145)
[2020-11-16 07:14] LABS: Glucose Point of Care 318 mg/dl (65-105)
[2020-11-16] MEDS: MAGNESIUM OXIDE 400 MG TABLET PO (09:03)
[2020-11-16] MEDS: lisinopriL 5 MG TABLET PO (09:03)
[2020-11-16] MEDS: FLUDROCORTISONE ACETATE 0.1 MG TABLET PO (09:03)
[2020-11-16] MEDS: ASPIRIN 81 MG ENTERIC TABLET PO (09:03)
[2020-11-16] MEDS: GABAPENTIN 400 MG CAPSULE PO ×3 (09:03→16:56)
[2020-11-16] MEDS: METOPROLOL TARTRATE 50 MG TAB PO ×2 (09:03→20:54)
[2020-11-16] MEDS: INSULIN ASPART (*BKC) 100 UNITS/ML SUB-Q ×3 (09:04→16:55)
--- NOTE | 2020-11-16 09:13 | PCPTNOTE ---
Attempted to see pt this AM but pt states he does not want to participate until after stress test today. Will check back later as schedule allows and pt is available/appropriate.
[2020-11-16 10:17] LABS: Glucose Point of Care 327 mg/dl (65-105)
--- NOTE | 2020-11-16 11:34 | PCOTNOTE ---
Spoke with [facility] Clinical Liason regarding potential placement
--- NOTE | 2020-11-16 12:44 | PCPTNOTE ---
Attempted to see pt again for PT session but pt is off the floor for stress test. Will check back later as schedule allows.
[2020-11-16 13:05] LABS: Glucose Point of Care 372 mg/dl (65-105)
[2020-11-16] MEDS: INSULIN GLARGINE (*BKC) 100 UNITS/ML 10 UNITS SUB-Q (13:14)
--- NOTE | 2020-11-16 15:00 | PM.IMPN ---
Progress Note: A&P Assessment and Plan (1) Syncope and collapse: Code(s): R55 - Syncope and collapse Status: Acute Assessment and Plan: Current episode is worrisome due to occurrence while seated, without premonition, and with injury. 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 The probability that orthostatic hypotension was a factor in the etiology of this particular spell seems low. Posterior circulation TIA is unlikely based upon his carotid dopplers Blood sugar was not excessively elevated or depressed during his acute evaluation. Echo with LVH, NL LVEF Lexiscan stress pending EEG pending Telemetry unremarkable Consider implantable collection officer 11/16 Patient with syncopal episode today patient feels much better, to further evaluate patient had a cardiac echo is essentially normal, patient had stress test did not show any ischemic event, there was a concern patient had been depressed and was placed on Zoloft 25 mg q.day, there was also concern the patient may need loop recorder however patient had a loop recorder placed 5 years and it is non functional, and patient does not remember who was the Cardiopulmonary Physical Therapist, on last admission our Cardiology refer the patient back to his Cardiopulmonary Physical Therapist. patient remains clinically stable will continue PT OT reassess tomorrow and may discharge the patient home (2) Carotid artery stenosis: Qualifiers: Laterality: unspecified laterality Qualified Code(s): I65.29 - Occlusion and stenosis of unspecified carotid artery Code(s): I65.29 - Occlusion and stenosis of unspecified carotid artery Status: Acute Assessment and Plan: Continue aspirin and atorvastatin (3) Paroxysmal atrial fibrillation: Code(s): I48.0 - Paroxysmal atrial fibrillation Status: Chronic Assessment and Plan: Continue metoprolol Rate controlled (4) Chronic kidney disease: Qualifiers: Chronic kidney disease stage: stage 3 (moderate) Qualified Code(s): N18.3 - Chronic kidney disease, stage 3 (moderate) Code(s): N18.9 - Chronic kidney disease, unspecified Status: Chronic Assessment and Plan: Creatinine is at patient's baseline (5) Diabetes mellitus, with long-term current use of insulin: Qualifiers: Diabetes mellitus type: type 2 Diabetes mellitus complication status: with kidney complications Diabetes mellitus complication detail: with chronic kidney disease Chronic kidney disease stage: stage 3 (moderate) Qualified Code(s): E11.22 - Type 2 diabetes mellitus with diabetic chronic kidney disease; N18.3 - Chronic kidney disease, stage 3 (moderate); Z79.4 - [facility] (current) use of insulin Code(s): E11.9 - Type 2 diabetes mellitus without complications; Z79.4 - [facility] (current) use of insulin Status: Chronic Assessment and Plan: Poor control and adherence at home (6) Orthostatic hypotension: Code(s): I95.1 - Orthostatic hypotension Status: Resolved Assessment and Plan: Recent orthostatic BP checks show drops from 150s to 110s w/o symptoms (7) Hypertension: Qualifiers: Hypertension type: essential hypertension Qualified Code(s): I10 - Essential (primary) hypertension Code(s): I10 - Essential (primary) hypertension Status: Chronic Assessment and Plan: Continue home regimen Monitor Subjective Date/time seen: 11/16/20 15:00 11/15 visit: Admitted with syncope while seated. Sudden onset. No warning. Nichols fine prior to episode. Awakened in ED. Injury with left frontal laceration. No focal symptoms. He was fatigued and drowsy for several hours following the episode. No issues with chest pain, sob, edema, weakness, no gi/gu c/o, bleeding. 11/16 Patient with syncopal episode today patient feels much better, to further evaluate patient had a cardiac echo is essentially normal,
--- NOTE | 2020-11-16 15:20 | PCOTNOTE ---
Attempted to see patient for OT after returning from his stress test, patient refused all ADLs and UB exercises. Will continue plan of care tomorrow, 11/17/20.
[2020-11-16 15:53] LABS: Glucose Point of Care 342 mg/dl (65-105)
[2020-11-16 16:52] LABS: Glucose Point of Care 334 mg/dl (65-105)
[2020-11-16] MEDS: INSULIN ASPART (*BKC) 100 UNITS/ML 6 UNITS SUB-Q (16:54)
[2020-11-16 20:44] LABS: Glucose Point of Care 229 mg/dl (65-105)
[2020-11-16] MEDS: INSULIN GLARGINE (*BKC) 100 UNITS/ML 32 UNITS SUB-Q (20:54)
[2020-11-16] MEDS: SERTRALINE HCL 25 MG TABLET PO (20:54)
[2020-11-16] MEDS: ATORVASTATIN 40 MG TABLET PO (22:15)
[2020-11-17] VITALS (16 sets, daily range): BP systolic 87–159; BP diastolic 37–77; PULSE 68–93; RESP 16–18; TEMP 35.6–36.8; O2SAT 94–98
[2020-11-17 05:04] LABS: Hematocrit 33.6 % (42.0-52.0); Mean Corpuscular HGB Conc 32.7 g/dl (32-36); Mean Corpuscular Hemoglobin 31.3 pg (26-34); Mean Corpuscular Volume 95.7 fl (80-100); Mean Platelet Volume 10.2 fl (7.4-10.4); Platelet Count Result 228 k/mm3 (150-375); Red Blood Count 3.51 M/mm3 (4.6-6.20); Red Cell Distribution Width 14.4 % (11.5-14.5)
[2020-11-17 05:22] LABS: Anion Gap 6 mmol/L (8-16); Blood Urea Nitrogen 18 mg/dL (9-20); Calcium 7.9 mg/dL (8.4-10.2); Carbon Dioxide 31 mmol/L (22-30); Chloride 102 mmol/L (98-107); Estimated CRCL calculation 76 ml/min; Estimated Glomerular Filt Rate > 60; Glucose 283 mg/dL (65-110); Potassium 3.5 mmol/L (3.4-5.0); Sodium 139 mmol/L (137-145)
[2020-11-17 06:51] LABS: Glucose Point of Care 257 mg/dl (65-105)
--- NOTE | 2020-11-17 07:43 | PCOTNOTE ---
Patient sleeping soundly, unable to wake to participate in OT. Will attempt again later if time.
[2020-11-17] MEDS: ASPIRIN 81 MG ENTERIC TABLET PO (08:28)
[2020-11-17] MEDS: lisinopriL 5 MG TABLET PO (08:28)
[2020-11-17] MEDS: GABAPENTIN 400 MG CAPSULE PO ×3 (08:28→16:25)
[2020-11-17] MEDS: MAGNESIUM OXIDE 400 MG TABLET PO (08:28)
[2020-11-17] MEDS: INSULIN ASPART (*BKC) 100 UNITS/ML 6 UNITS SUB-Q ×3 (08:28→16:26)
[2020-11-17] MEDS: FLUDROCORTISONE ACETATE 0.1 MG TABLET PO (08:28)
[2020-11-17] MEDS: METOPROLOL TARTRATE 50 MG TAB PO ×2 (08:28→20:38)
[2020-11-17] MEDS: INSULIN ASPART (*BKC) 100 UNITS/ML SUB-Q ×2 (08:29→12:14)
--- NOTE | 2020-11-17 10:58 | WPDNEUROLOGY ---
Neurology EEG Report General Information Date of Study: 11/16/20 TEST eeg DIAGNOSIS syncope with altered level of consciousness CONDITION OF RECORDING drowsy and sleep EEG NUMBER [id number] CLINICAL HISTORY patient reported he has been having dizzy spells for a while and has lost consciousness a couple of times with dizziness EEG DESCRIPTION low-voltage beta activity seen diffusely during drowsiness with intermittent 6 to 7 hertz per 2nd low to medium voltage theta activity. Bilateral symmetrical sleep activity seen during sleep. Hyperventilation not done. Photic stimulation not done. Non paroxysmal. Nonfocal. Nonlateralizing. IMPRESSION No abnormalities noted in this tracing which mainly consists of drowsiness and sleep clinical correlation recommended
--- NOTE | 2020-11-17 11:32 | PM.IMPN ---
Progress Note: A&P Assessment and Plan (1) Syncope and collapse: Code(s): R55 - Syncope and collapse Status: Acute Assessment and Plan: Sudden event Echo with LVH, NL LVEF Lexiscan stress pending EEG pending Telemetry unremarkable Consider implantable pediatric hospitalist 11/16 Patient with syncopal episode today patient feels much better, to further evaluate patient had a cardiac echo is essentially normal, patient had stress test did not show any ischemic event, there was a concern patient had been depressed and was placed on Zoloft 25 mg q.day, there was also concern the patient may need loop recorder however patient had a loop recorder placed 5 years and it is non functional, patient remains clinically stable will continue PT OT reassess today and may discharge the patient home tomorrow. Pt having EEG today (2) Carotid artery stenosis: Qualifiers: Laterality: unspecified laterality Qualified Code(s): I65.29 - Occlusion and stenosis of unspecified carotid artery Code(s): I65.29 - Occlusion and stenosis of unspecified carotid artery Status: Acute Assessment and Plan: Continue aspirin and atorvastatin (3) Paroxysmal atrial fibrillation: Code(s): I48.0 - Paroxysmal atrial fibrillation Status: Chronic Assessment and Plan: Continue metoprolol Rate controlled (4) Chronic kidney disease: Qualifiers: Chronic kidney disease stage: stage 3 (moderate) Qualified Code(s): N18.3 - Chronic kidney disease, stage 3 (moderate) Code(s): N18.9 - Chronic kidney disease, unspecified Status: Chronic Assessment and Plan: Creatinine is at patient's baseline (5) Diabetes mellitus, with long-term current use of insulin: Qualifiers: Diabetes mellitus type: type 2 Diabetes mellitus complication status: with kidney complications Diabetes mellitus complication detail: with chronic kidney disease Chronic kidney disease stage: stage 3 (moderate) Qualified Code(s): E11.22 - Type 2 diabetes mellitus with diabetic chronic kidney disease; N18.3 - Chronic kidney disease, stage 3 (moderate); 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 treater 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) use of insulin Code(s): E11.9 - Type 2 diabetes mellitus without complications; 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 treater 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) use of insulin Status: Chronic Assessment and Plan: Poor control and adherence at home (6) Orthostatic hypotension: Code(s): I95.1 - Orthostatic hypotension Status: Resolved Assessment and Plan: Continue on orthostatic BP (7) Hypertension: Qualifiers: Hypertension type: essential hypertension Qualified Code(s): I10 - Essential (primary) hypertension Code(s): I10 - Essential (primary) hypertension Status: Chronic Assessment and Plan: Continue home regimen Monitor Subjective Date/time seen: 11/17/20 11:32 Interval history: 11/15 visit: Admitted with syncope while seated. Injury with left frontal laceration. Stabilize pts blood sugars and pt to have neurology consult for further evaluation Review of Systems Review of Systems: All systems reviewed & are unremarkable except as noted in HPI and below Exam Narrative: Patient is comfortable, elderly male friendly HEENT: eyes are clear and none icteric LUNGS:Clear lung ivan HEART: RR S1S2 ABD: BS+, Soft and nontender Lower extremities: no edema SKIN: nonjaundiced Neuro: grossly intact. Objective Data Vital Signs Vital Signs: Vital Signs - 24 hr 11/16/20 12:00 11/16/20 14:00 11/16/20 16:00 Temperature 36.9 C Pulse Rate 73 79 78 Respiratory Rate 18 Blood Pressure 156/62 H Pulse Oximetry 97 11/16/20 20:00 11/16/20 20:54 11/16/20 22:00 Temperature 36.4 C L Pulse Rate 76 93 77 Respiratory Rate 18 Blood Pressure 125/59 L Pulse Oximetry 97 11/17/20 00:00 11/17/20 04:00 11/17/20 06:00 Temperature 36.2 C L Pulse Rate 75 76 76 Respiratory Rate 16 Bloo
[2020-11-17 12:14] LABS: Glucose Point of Care 244 mg/dl (65-105)
[2020-11-17 16:43] LABS: Glucose Point of Care 200 mg/dl (65-105)
[2020-11-17] MEDS: SERTRALINE HCL 25 MG TABLET PO (20:37)
[2020-11-17] MEDS: INSULIN GLARGINE (*BKC) 100 UNITS/ML 32 UNITS SUB-Q (20:37)
[2020-11-17] MEDS: ATORVASTATIN 40 MG TABLET PO (20:38)
[2020-11-17 21:12] LABS: Glucose Point of Care 195 mg/dl (65-105)
[2020-11-18] VITALS (15 sets, daily range): BP systolic 80–179; BP diastolic 40–80; PULSE 67–95; RESP 12–16; TEMP 36.4–36.6; O2SAT 96–97
[2020-11-18 00:08] LABS: Glucose Point of Care 223 mg/dl (65-105)
--- NOTE | 2020-11-18 08:08 | PM.DS ---
DS: Admitting Diagnosis Discharge Date 11/18/20 Admitting Diagnosis 1) Syncope and collapse: Code(s): R55 - Syncope and collapse Status: Acute Assessment and Plan: Patient is known to have orthostatic hypotension maybe this is playing a role on this episodes CT of the head reviewed Patient has had extensive workup in the past Might need Holter monitoring in the outpatient setting (2) Carotid artery stenosis: Code(s): I65.29 - Occlusion and stenosis of unspecified carotid artery Status: Acute Assessment and Plan: Continue aspirin and Lipitor (3) Fall: Qualifiers: Encounter type: initial encounter Qualified Code(s): W19.XXXA - Unspecified fall, initial encounter Code(s): W19.XXXA - Unspecified fall, initial encounter Status: Acute Assessment and Plan: No trauma (4) Paroxysmal atrial fibrillation: Code(s): I48.0 - Paroxysmal atrial fibrillation Status: Chronic Assessment and Plan: Continue metoprolol Rate controlled (5) Chronic kidney disease: Qualifiers: Chronic kidney disease stage: stage 3 (moderate) Qualified Code(s): N18.3 - Chronic kidney disease, stage 3 (moderate) Code(s): N18.9 - Chronic kidney disease, unspecified Status: Chronic Assessment and Plan: Creatinine is a patient's baseline (6) Elevated troponin: Code(s): R79.89 - Other specified abnormal findings of blood chemistry Status: Acute Assessment and Plan: Patient with chronic elevation of troponins DS: Discharge Diagnosis Discharge Diagnosis (1) Syncope and collapse: Code(s): R55 - Syncope and collapse Status: Acute (2) Carotid artery stenosis: Qualifiers: Laterality: unspecified laterality Qualified Code(s): I65.29 - Occlusion and stenosis of unspecified carotid artery Code(s): I65.29 - Occlusion and stenosis of unspecified carotid artery Status: Acute (3) Acute renal failure superimposed on stage 3 chronic kidney disease: Qualifiers: Acute renal failure type: unspecified Chronic kidney disease stage 3 subtype: unspecified whether 3a or 3b Qualified Code(s): N17.9 - Acute kidney failure, unspecified; N18.30 - Chronic kidney disease, stage 3 unspecified Code(s): N17.9 - Acute kidney failure, unspecified; N18.30 - Chronic kidney disease, stage 3 unspecified Status: Acute Assessment and Plan: POA (4) Fall: Qualifiers: Encounter type: initial encounter Qualified Code(s): W19.XXXA - Unspecified fall, initial encounter Code(s): W19.XXXA - Unspecified fall, initial encounter Status: Acute (5) Lumbar contusion: Qualifiers: Encounter type: initial encounter Qualified Code(s): S30.0XXA - Contusion of lower back and pelvis, initial encounter Code(s): S30.0XXA - Contusion of lower back and pelvis, initial encounter Status: Acute (6) Paroxysmal atrial fibrillation: Code(s): I48.0 - Paroxysmal atrial fibrillation Status: Chronic (7) Diabetes mellitus: Qualifiers: Chronic kidney disease stage: stage 3 (moderate) Diabetes mellitus complication detail: with chronic kidney disease Diabetes mellitus complication status: with kidney complications Diabetes mellitus senior living insulin use: with watermelon harvesting supervisor use Diabetes mellitus type: type 2 Qualified Code(s): E11.22 - Type 2 diabetes mellitus with diabetic chronic kidney disease; N18.3 - Chronic kidney disease, stage 3 (moderate); Z79.4 - watermelon harvesting supervisor (current) use of insulin Code(s): E11.9 - Type 2 diabetes mellitus without complications Status: Chronic (8) Hyperlipidemia: Code(s): E78.5 - Hyperlipidemia, unspecified Status: Chronic DS: Summary Hospital Course Reason for hospitalization: LOC Hospital Course: 65 yo M admitted after LOC [place] bus [place] seated. Pt admitted and Cardiology and Neurology consult
[2020-11-18] MEDS: FLUDROCORTISONE ACETATE 0.1 MG TABLET PO ×2 (08:19→14:14)
[2020-11-18] MEDS: MAGNESIUM OXIDE 400 MG TABLET PO (08:19)
[2020-11-18] MEDS: GABAPENTIN 400 MG CAPSULE PO ×3 (08:19→16:53)
[2020-11-18] MEDS: ASPIRIN 81 MG ENTERIC TABLET PO (08:19)
[2020-11-18] MEDS: lisinopriL 5 MG TABLET PO (08:19)
[2020-11-18] MEDS: METOPROLOL TARTRATE 50 MG TAB PO ×2 (08:19→21:07)
[2020-11-18 08:20] LABS: Glucose Point of Care 201 mg/dl (65-105)
[2020-11-18] MEDS: INSULIN ASPART (*BKC) 100 UNITS/ML 6 UNITS SUB-Q ×3 (08:21→16:53)
[2020-11-18] MEDS: INSULIN ASPART (*BKC) 100 UNITS/ML SUB-Q ×3 (08:21→16:54)
--- NOTE | 2020-11-18 08:36 | PCOTNOTE ---
Pt. frequency decreased .2-3x, due to functioning nearing baseline and slowing progress in sessions.
--- NOTE | 2020-11-18 10:51 | PCNWS ---
Weekly nutritional screen. Patient is tolerating current diet with adequate intake. No weight loss reported. No nutritional needs at this time.
--- NOTE | 2020-11-18 11:28 | PM.IMPN ---
Progress Note: A&P Assessment and Plan (1) Syncope and collapse: Code(s): R55 - Syncope and collapse Status: Acute (2) Carotid artery stenosis: Qualifiers: Laterality: unspecified laterality Qualified Code(s): I65.29 - Occlusion and stenosis of unspecified carotid artery Code(s): I65.29 - Occlusion and stenosis of unspecified carotid artery Status: Acute (3) Acute renal failure superimposed on stage 3 chronic kidney disease: Qualifiers: Acute renal failure type: unspecified Chronic kidney disease stage 3 subtype: unspecified whether 3a or 3b Qualified Code(s): N17.9 - Acute kidney failure, unspecified; N18.30 - Chronic kidney disease, stage 3 unspecified Code(s): N17.9 - Acute kidney failure, unspecified; N18.30 - Chronic kidney disease, stage 3 unspecified Status: Acute Assessment and Plan: POA (4) Fall: Qualifiers: Encounter type: initial encounter Qualified Code(s): W19.XXXA - Unspecified fall, initial encounter Code(s): W19.XXXA - Unspecified fall, initial encounter Status: Acute (5) Lumbar contusion: Qualifiers: Encounter type: initial encounter Qualified Code(s): S30.0XXA - Contusion of lower back and pelvis, initial encounter Code(s): S30.0XXA - Contusion of lower back and pelvis, initial encounter Status: Acute (6) Paroxysmal atrial fibrillation: Code(s): I48.0 - Paroxysmal atrial fibrillation Status: Chronic (7) Diabetes mellitus: Qualifiers: Diabetes mellitus type: type 2 Diabetes mellitus detention insulin use: with detention use Diabetes mellitus complication status: with kidney complications Diabetes mellitus complication detail: with chronic kidney disease Chronic kidney disease stage: stage 3 (moderate) Qualified Code(s): E11.22 - Type 2 diabetes mellitus with diabetic chronic kidney disease; N18.3 - Chronic kidney disease, stage 3 (moderate); Z79.4 - halfway (current) use of insulin Code(s): E11.9 - Type 2 diabetes mellitus without complications Status: Chronic (8) Hyperlipidemia: Code(s): E78.5 - Hyperlipidemia, unspecified Status: Chronic Additional Plan 11/18/2020 Patient noted to have ongoing hypostatic VS despite treatment with fludrocortisone hold discharge Increase fludrocortisone to 0.2 daily Salt tablets b.i.d. 500 cc of saline 100 cc/hour Repeat vital signs after initiation of therapy Anticipate discharge tomorrow Time Spent With Patient Time with patient: Greater than 35 minutes Subjective Date/time seen: 11/18/20 20:28 patient discharged afternoon but prior to leaving the building orthostatics were completed again. He was noted to have symptomatic orthostatic hypertension and discharge was held. Medical record reviewed a patient already on fludrocortisone. Case reviewed with KEELY montoya discharged today and improve orthostasis prior to discharge. Exam Narrative: GEN: NAD, AAOx3, cooperative HEENT: NCAT, MMM, EOMI Neck: no JVD Heart: S1S2 RRR Lungs: CTA B/l Abd: soft, NT, ND, bowel sounds normoactive Ext: moves all, no cyanosis, no clubbing, no edema Neuro: Cranial nerves intact no gross focal neurological deficits appreciated Psych: mood and affect congruent Objective Data Vital Signs Vital Signs: Vital Signs - 24 hr 11/17/20 20:38 11/18/20 00:00 11/18/20 04:00 Temperature Pulse Rate 84 68 68 Respiratory Rate Blood Pressure Pulse Oximetry 11/18/20 04:57 11/18/20 08:00 11/18/20 08:19 Temperature 97.8 F Pulse Rate 68 73 80 Respiratory Rate 14 Blood Pressure 168/75 H 166/72 H Pulse Oximetry 97 11/18/20 11:23 11/18/20 12:00 11/18/20 14:00 Temperature 97.5 F L Pulse Rate 67 73 Respiratory Rate 12 Blood Pressure 80/40 L 155/65 H Pulse Oximetry 97 11/18/20 16:00 11/18/20 17:34 Temperature Pulse Rate 71 95 Respiratory Rate Blood Pressure 1
[2020-11-18 11:53] LABS: Glucose Point of Care 252 mg/dl (65-105)
[2020-11-18] MEDS: SODIUM CHLORIDE 0.9% IV 500 ML 100 ML IV CONT (13:36)
--- NOTE | 2020-11-18 14:20 | PCPTNOTE ---
Attempted to see pt this afternoon. RN reports that pt was supposed to leave today, but had orthostatic vitals with increased dizziness. RN requests to hold at this time until pt received fluids and medication before reassessing BP. Will check back later as schedule allows.
[2020-11-18 16:51] LABS: Glucose Point of Care 313 mg/dl (65-105)
[2020-11-18] MEDS: SODIUM CHLORIDE 500 MG TABLET PO (16:53)
[2020-11-18] MEDS: INSULIN GLARGINE (*BKC) 100 UNITS/ML 32 UNITS SUB-Q (21:05)
[2020-11-18] MEDS: ATORVASTATIN 40 MG TABLET PO (21:07)
[2020-11-18] MEDS: SERTRALINE HCL 25 MG TABLET PO (21:07)
[2020-11-18 21:21] LABS: Glucose Point of Care 222 mg/dl (65-105)
[2020-11-19] VITALS (11 sets, daily range): BP systolic 102–182; BP diastolic 48–80; PULSE 68–81; RESP 16–18; TEMP 36.1–36.6; O2SAT 97–99
[2020-11-19 08:07] LABS: Glucose Point of Care 243 mg/dl (65-105)
[2020-11-19] MEDS: GABAPENTIN 400 MG CAPSULE PO ×2 (08:21→12:06)
[2020-11-19] MEDS: ASPIRIN 81 MG ENTERIC TABLET PO (08:21)
[2020-11-19] MEDS: MAGNESIUM OXIDE 400 MG TABLET PO (08:21)
[2020-11-19] MEDS: FLUDROCORTISONE ACETATE 0.1 MG TABLET 0.2 MG PO (08:21)
[2020-11-19] MEDS: lisinopriL 5 MG TABLET PO (08:21)
[2020-11-19] MEDS: METOPROLOL TARTRATE 50 MG TAB PO (08:21)
[2020-11-19] MEDS: INSULIN ASPART (*BKC) 100 UNITS/ML SUB-Q ×2 (08:22→12:07)
[2020-11-19] MEDS: INSULIN ASPART (*BKC) 100 UNITS/ML 6 UNITS SUB-Q ×2 (08:22→12:07)
--- NOTE | 2020-11-19 08:54 | PM.DS ---
DS: Admitting Diagnosis Discharge Date 11/19/20 Admitting Diagnosis 1) Syncope and collapse: Code(s): R55 - Syncope and collapse Status: Acute Assessment and Plan: Patient is known to have orthostatic hypotension maybe this is playing a role on this episodes CT of the head reviewed Patient has had extensive workup in the past Might need Holter monitoring in the outpatient setting (2) Carotid artery stenosis: Code(s): I65.29 - Occlusion and stenosis of unspecified carotid artery Status: Acute Assessment and Plan: Continue aspirin and Lipitor (3) Fall: Qualifiers: Encounter type: initial encounter Qualified Code(s): W19.XXXA - Unspecified fall, initial encounter Code(s): W19.XXXA - Unspecified fall, initial encounter Status: Acute Assessment and Plan: No trauma (4) Paroxysmal atrial fibrillation: Code(s): I48.0 - Paroxysmal atrial fibrillation Status: Chronic Assessment and Plan: Continue metoprolol Rate controlled (5) Chronic kidney disease: Qualifiers: Chronic kidney disease stage: stage 3 (moderate) Qualified Code(s): N18.3 - Chronic kidney disease, stage 3 (moderate) Code(s): N18.9 - Chronic kidney disease, unspecified Status: Chronic Assessment and Plan: Creatinine is a patient's baseline (6) Elevated troponin: Code(s): R79.89 - Other specified abnormal findings of blood chemistry Status: Acute Assessment and Plan: Patient with chronic elevation of troponins DS: Discharge Diagnosis Discharge Diagnosis (1) Syncope and collapse: Code(s): R55 - Syncope and collapse Status: Acute (2) Carotid artery stenosis: Qualifiers: Laterality: unspecified laterality Qualified Code(s): I65.29 - Occlusion and stenosis of unspecified carotid artery Code(s): I65.29 - Occlusion and stenosis of unspecified carotid artery Status: Acute (3) Acute renal failure superimposed on stage 3 chronic kidney disease: Qualifiers: Acute renal failure type: unspecified Chronic kidney disease stage 3 subtype: unspecified whether 3a or 3b Qualified Code(s): N17.9 - Acute kidney failure, unspecified; N18.30 - Chronic kidney disease, stage 3 unspecified Code(s): N17.9 - Acute kidney failure, unspecified; N18.30 - Chronic kidney disease, stage 3 unspecified Status: Acute (4) Fall: Qualifiers: Encounter type: initial encounter Qualified Code(s): W19.XXXA - Unspecified fall, initial encounter Code(s): W19.XXXA - Unspecified fall, initial encounter Status: Acute (5) Lumbar contusion: Qualifiers: Encounter type: initial encounter Qualified Code(s): S30.0XXA - Contusion of lower back and pelvis, initial encounter Code(s): S30.0XXA - Contusion of lower back and pelvis, initial encounter Status: Acute (6) Back pain: Qualifiers: Back pain laterality: unspecified Back pain location: low back pain Chronicity: acute Sciatica presence: without sciatica Qualified Code(s): M54.5 - Low back pain Code(s): M54.9 - Dorsalgia, unspecified Status: Acute (7) Paroxysmal atrial fibrillation: Code(s): I48.0 - Paroxysmal atrial fibrillation Status: Chronic (8) Hypertensive emergency without congestive heart failure: Code(s): I16.1 - Hypertensive emergency Status: Acute (9) Diabetes mellitus: Qualifiers: Chronic kidney disease stage: stage 3 (moderate) Diabetes mellitus complication detail: with chronic kidney disease Diabetes mellitus complication status: with kidney complications Diabetes mellitus detention insulin use: with equipment operator intermodal yard use Diabetes mellitus type: type 2 Qualified Code(s): E11.22 - Type 2 diabetes mellitus with diabetic chronic kidney disease; N18.3 - Chronic kidney disease, stage 3 (moderate); Z79.4 - [facility] (current) use of insulin
[2020-11-19 12:05] LABS: Glucose Point of Care 273 mg/dl (65-105)
--- NOTE | 2020-11-19 13:13 | PCOTNOTE ---
Attempted to see pt. this date prior to D/C for occupational therapy. Kindly declined Honey, I'm going home today, go [facility]dead and see someone else who needs you. Pt. educated on benefits of OT, kindly continue to decline.
== END 2020-11-19 16:05 | disposition home or self-care (01) | DRG 312 ==
LOC: ANHED 18:51 → ANHIMU 11-12 10:34 → ANH2MED 11-16 08:23 → ANHIMU 11-23 10:22
PROVIDERS: Family Medicine; Admitting Provider Internal Medicine; Emergency Provider Emergency Medicine; PCP Family Medicine; Visit Provider Hospitalist
DX: I95.1 Orthostatic hypotension (principal); N17.9 Acute kidney failure, unspecified; I16.1 Hypertensive emergency; I65.29 Occlusion and stenosis of unspecified carotid artery; I48.0 Paroxysmal atrial fibrillation; N18.30 Chronic kidney disease, stage 3 unspecified; I12.9 Hypertensive chronic kidney disease with stage 1 through stage 4 chronic kidney disease, or unspecified chronic kidney disease; E11.22 Type 2 diabetes mellitus with diabetic chronic kidney disease; M54.5 Low back pain; S30.0XXA Contusion of lower back and pelvis, initial encounter; W19.XXXA Unspecified fall, initial encounter; I25.10 Atherosclerotic heart disease of native coronary artery without angina pectoris; M19.90 Unspecified osteoarthritis, unspecified site; D64.9 Anemia, unspecified; E11.21 Type 2 diabetes mellitus with diabetic nephropathy; E11.319 Type 2 diabetes mellitus with unspecified diabetic retinopathy without macular edema; E78.5 Hyperlipidemia, unspecified; E11.42 Type 2 diabetes mellitus with diabetic polyneuropathy; Z79.4 Long term (current) use of insulin; I25.2 Old myocardial infarction; Z90.49 Acquired absence of other specified parts of digestive tract; Z98.42 Cataract extraction status, left eye; Z98.41 Cataract extraction status, right eye
CPT/HCPCS: 36415; 70450; 78452; 80048; 82948; 83735; 84484; 85025; 85027; 93005; 93017; 95816; 97110; 97116; 97161; 97165; 97530; 97535; 99285; A9270; A9502; C8929; J1815; J2785; J7040; J7120; Q9957

== ENCOUNTER 2020-11-23 15:23 | Inpatient (IN) | payer MEDICARE, MEDICAID, SELFPAY ==
[2020-11-23] VITALS (10 sets, daily range): BP systolic 87–171; BP diastolic 17–94; PULSE 65–112; RESP 14–20; TEMP 35.8; O2SAT 98–100; BMI 28.4
--- NOTE | ~2020-11-23 | CT_ITS ---
EXAMINATION: CT brain wo con INDICATION: Transient alteration of awareness COMPARISON: 11/11/2020 TECHNIQUE: Standard unenhanced head CT. The dose-length product (DLP) was 605.33 mGy-cm. The mA was a djusted according to patient size. Iterative reconstruction technique was employed. FINDINGS: There is no acute intraparenchymal hemorrhage. No evidence of mass lesion. No evidence of a cute infarction. 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 There is mild periventricul ar and subcortical hypodensity probably related to small vessel ischemic disease. There is mild promi nence of the sulci and ventricles related to cerebral atrophy. Intracranial calcified cerebral athero sclerosis is noted. There are no extra-axial collections. There is no mass effect or midline shift. C hanges in the globes are likely from ocular lens surgery. There is mild mucosal thickening of the par anasal sinuses. IMPRESSION: 1. No acute intracranial abnormality. 2. Age related findings. Reviewed, dictated and finalized at location A.
--- NOTE | 2020-11-23 16:02 | ECG_ITS ---
Measurements Intervals [place] Rate: 104 P: 53 W[place]: 160 QRS: 81 QRSD: 98 T: 240 QT: 380 QTc: 501 Interpretive Statements SINUS TACHYCARDIA LEFT VENTRICULAR HYPERTROPHY AND ST-T CHANGE ST-T WAVE ABNORMALITY IN ANTEROLAT/INF LEADS- CONSIDER ISCHEMIA BASELINE ARTIFACT- II, III, AVR, AVF, V3-V6 ABNORMAL ECG Electronically Signed On 11-23-2020 16:52:34 CDT by Colin Moreland D.O.
[2020-11-23 16:23] LABS: Glucose Point of Care 112 mg/dl (65-105)
[2020-11-23 16:48] LABS: Basophils Absolute Auto 0.1 K/mm3 (0.0-0.1); Eosinophils Absolute Auto 0.1 K/mm3 (0-0.3); Eosinophils Percent Auto 0.9 % (0-4.4); Hematocrit 42.4 % (42.0-52.0); Hemoglobin 13.7 g/dL (14.0-18.0); Immature Granulocyte Absolute 0.03 K/mm3 (0.00-0.031); Immature Granulocyte Percent A 0.3 % (0-0.5); Lymphocytes Absolute Auto 2.18 K/mm3 (0.9-3.2); Lymphocytes Percent Auto 23.4 % (18.3-44.2); Mean Corpuscular HGB Conc 32.3 g/dl (32-36); Mean Corpuscular Hemoglobin 31.3 pg (26-34); Mean Corpuscular Volume 96.8 fl (80-100); Mean Platelet Volume 10.9 fl (7.4-10.4); Monocytes Absolute Auto 0.4 K/mm3 (0.1-0.6); Monocytes Percent Auto 4.6 % (2.6-8.5); Neutrophils Absolute Auto 6.5 K/mm3 (1.3-6.7); Neutrophils Percent Auto 69.8 % (45.5-73.1); Platelet Count Result 278 k/mm3 (150-375); Red Blood Count 4.38 M/mm3 (4.6-6.20); Red Cell Distribution Width 15.8 % (11.5-14.5); White Blood Count 9.3 K/mm3 (4.5-10.0)
[2020-11-23 16:55] LABS: Glucose Point of Care 119 mg/dl (65-105)
[2020-11-23 16:56] LABS: Anion Gap 17 mmol/L (8-16); Blood Urea Nitrogen 59 mg/dL (9-20); Calcium 8.8 mg/dL (8.4-10.2); Carbon Dioxide 25 mmol/L (22-30); Chloride 101 mmol/L (98-107); Estimated Glomerular Filt Rate 18; Glucose 123 mg/dL (65-110); Potassium 4.4 mmol/L (3.4-5.0); Sodium 143 mmol/L (137-145)
--- NOTE | 2020-11-23 17:12 | ED.GENADULT ---
HPI - General Adult General Chief complaint: Syncope Stated complaint: syncope Time Seen by Provider: 11/23/20 16:44 Source: patient and EMS Mode of arrival: EMS Limitations: no limitations History of Present Illness HPI narrative: Patient was brought in by EMS after he called 911 when he awoke on the floor. He last remembers being awake the morning before. Apparently he has done this several times most recently last week. He denies any alcohol or drug use. He states he takes all of his medications as ordered. EMS reports that the area where he was found was covered with feces. Onset (ago): hour(s) Related Data Home Medications Medication Instructions Recorded Confirmed aspirin [Aspirin Low Dose] 81 mg PO DAILY 01/08/19 11/11/20 atorvastatin 40 mg PO HS 01/08/19 11/11/20 gabapentin 400 mg PO TID 01/08/19 11/11/20 Allergies Allergy/AdvReac Type Severity Reaction Status Date / Time No Known Allergies Allergy Verified 11/23/20 17:00 Review of Systems Review of Systems: All systems reviewed & are unremarkable except as noted in HPI and below [facility] Past Medical History Medical History (Updated 11/23/20 @ 20:00 by Anne-Marie Mendieta PA-C) Arthritis CAD (coronary artery disease) Negative stress test November 2018 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 Diabetic nephropathy Diabetic retinopathy S/p retinal surgery Diastolic dysfunction Noted on prior echocardiogram but most recent echocardiogram demonstrating hyperdynamic left ventricle with EF greater than 70% with no mention of diastolic dysfunction Essential hypertension History of angina Hyperlipidemia Kidney stones NSTEMI (non-ST elevated myocardial infarction) With chronic troponin elevation Orthostatic hypotension Paroxysmal atrial fibrillation Not on anticoagulation due to high has bled score/high fall risk Peripheral neuropathy Surgical History Surgical History History of cholecystectomy History of loop recorder patient states that it no longer works. Status post cataract extraction of both eyes with insertion of intraocular lens Family History Family History Sibling Hypertension Father Polycystic kidney disease Colon cancer Diabetes mellitus Prostate carcinoma Mother Cerebrovascular accident CHF (congestive heart failure) Diabetes mellitus Acute myocardial infarction Social History Social History Social History: He is and lives alone in an apartment complex for seniors. He does not drive due to his poor vision. He is otherwise independent activities of daily living. He is retired from the [employer]. He designates his sister, Yaz as his surrogate decision maker and he wishes to be a full code. He has 2 daughters who are relatively healthy. Smoking status: Never smoker Second hand tobacco smoke exposure: No Alcohol intake: never Substance use: never Substance use type: does not use Additional living arrangements comments: The patient is currently living alone. He had been placed in a skilled nursing for 3 years previously until he had corrective surgery for vision loss associated with his diabetes. He was discharged from skilled nursing December 2017. Additional occupation/education comments: He is retired from a [employer] where he worked for 35 years. He is now on disability following injuries associated with his diabetes. Gender identity (if verbalized by the patient): Male Spiritual care concerns: No
[2020-11-23] MEDS: SODIUM CHLORIDE 0.9% IV 1,000 ML 999 ML IV CONT ×2 (17:45→19:01)
[2020-11-23 18:09] LABS: Ethanol < 10 mg/dL (<10)
[2020-11-23 19:15] LABS: Creatine Kinase 1379 U/L (55-170)
--- NOTE | 2020-11-23 22:15 | ADMGEN ---
This patient, Jorge Alberto Cortez, was admitted to Medical Room 343-01. Patient/family oriented to hospital policies and general routines including ID bracelet, bed and alarms, visiting hours, pain management, procedures, bathroom and other care routines, personal items, smoking policy, room service/diet, and visiting hours. Information on how to activate the Rapid Response Team has been discussed. Patient/Family are encouraged to report perceived risks to care and to ask questions if they do not understand what they are told or what they should do.
[2020-11-23] MEDS: SODIUM CHLORIDE 0.9% IV 1,000 ML 150 ML IV CONT (22:19)
--- NOTE | 2020-11-23 22:36 | PM.IMHP ---
H&P: HPI History of Present Illness Date/Time: 11/23/20 22:36 Chief Complaint: Syncope, found down Narrative: 65-year-old male with past medical history of uncontrolled diabetes mellitus, chronic kidney disease stage 3, orthostatic hypotension, and poor short-term memory who presented to the ER via EMS with history of syncope with unknown down time. The patient is not clear on exactly how long that he was on the floor. When asked what resulted in is following he stated that he went to get up from his chair and the next thing he knew he was on the floor. He thinks he may have been have been unconscious for a couple of hours. He is unsure how long he was on the floor. When I try to pin the patient down on more specific cancers on his health recently he changes subjects in asks me what I have been up to. Nursing staff states that earlier in the evening the patient was only oriented to person place and was confused as to the month and would not gas as to the year. He never could name the president. He does not think he hit anything when he was falling but he does have an abrasion to his right brow and to his nasal bridge. The old abrasion from his hospitalization last week has pretty much healed. He denies any nausea or vomiting. He has not been having any chest pain or shortness of breath. He claims to have been taking all of his medications. He is currently overall a poor historian. He was recently admitted for DKA but his glucoses on arrival today were relatively euglycemic. He denies having any abdominal pain or diarrhea. However EMS reported that the patient apartment had stool scattered in several areas. At the time my evaluation the patient had markedly hyperactive bowel sounds. He has not had any recent antibiotic exposure. Review of Systems Review of Systems: 12 systems were reviewed with pertinent positives and negatives per HPI. Except as documented in the HPI, all other systems were reviewed and are negative. 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 Diabetic nephropathy Diabetic retinopathy S/p retinal surgery Diastolic dysfunction Noted on prior echocardiogram but most recent echocardiogram demonstrating hyperdynamic left ventricle with EF greater than 70% with no mention of diastolic dysfunction Essential hypertension History of angina Hyperlipidemia Kidney stones NSTEMI (non-ST elevated myocardial infarction) With chronic troponin elevation Orthostatic hypotension Paroxysmal atrial fibrillation Not on anticoagulation due to high has bled score/high fall risk Peripheral neuropathy Surgical History Surgical History History of cholecystectomy History of loop recorder patient states that it no longer works. Status post cataract extraction of both eyes with insertion of intraocular lens Family History Family History Sibling Hypertension Father Polycystic kidney disease Colon cancer Diabetes mellitus Prostate carcinoma Mother Cerebrovascular accident CHF (congestive heart failure) Diabetes mellitus Acute myocardial infarction Social History Social History Social History: He is and lives alone in an apartment complex for seniors. He does not drive due to his poor vision. He is otherwise independent activities of daily living. He is retired from the [employer]
[2020-11-24] VITALS (9 sets, daily range): BP systolic 138–171; BP diastolic 53–99; PULSE 82–108; RESP 16–18; TEMP 35.8–36.9; O2SAT 92–99
[2020-11-24] MEDS: SODIUM CHLORIDE 0.9% IV 1,000 ML 150 ML IV CONT ×4 (05:23→23:01)
[2020-11-24 07:28] LABS: Hematocrit 34.1 % (42.0-52.0); Hemoglobin 10.9 g/dL (14.0-18.0); Mean Corpuscular Hemoglobin 31.7 pg (26-34); Mean Corpuscular Volume 99.1 fl (80-100); Mean Platelet Volume 10.7 fl (7.4-10.4); Platelet Count Result 177 k/mm3 (150-375); Red Blood Count 3.44 M/mm3 (4.6-6.20); Red Cell Distribution Width 15.3 % (11.5-14.5); White Blood Count 7.2 K/mm3 (4.5-10.0)
[2020-11-24 07:47] LABS: Anion Gap 12 mmol/L (8-16); Blood Urea Nitrogen 58 mg/dL (9-20); Calcium 7.2 mg/dL (8.4-10.2); Carbon Dioxide 24 mmol/L (22-30); Chloride 101 mmol/L (98-107); Creatine Kinase 823 U/L (55-170); Estimated CRCL calculation 37 ml/min; Estimated Glomerular Filt Rate 30; Glucose 315 mg/dL (65-110); Potassium 4.2 mmol/L (3.4-5.0); Sodium 137 mmol/L (137-145)
[2020-11-24 08:40] LABS: Glucose Point of Care 349 mg/dl (65-105)
[2020-11-24] MEDS: INSULIN ASPART (*BKC) 100 UNITS/ML SUB-Q ×3 (08:40→17:39)
[2020-11-24] MEDS: ASPIRIN 81 MG ENTERIC TABLET PO (08:41)
[2020-11-24] MEDS: GABAPENTIN 400 MG CAPSULE PO ×3 (08:41→17:40)
[2020-11-24] MEDS: FLUDROCORTISONE ACETATE 0.1 MG TABLET 0.2 MG PO (08:41)
[2020-11-24] MEDS: METOPROLOL TARTRATE 50 MG TAB PO ×2 (08:45→21:09)
[2020-11-24] MEDS: MAGNESIUM OXIDE 400 MG TABLET PO (08:45)
--- NOTE | 2020-11-24 09:55 | PM.IMPN ---
Progress Note: A&P Assessment and Plan (1) Syncope: Qualifiers: Syncope type: unspecified Qualified Code(s): R55 - Syncope and collapse Code(s): R55 - Syncope and collapse Status: Acute Assessment and Plan: Patient has now had 3 hospitalizations since November 09 due to recurrent syncope and/or DKA. Per previous provider, on arrival the nursing staff and mentioned the patient had significant difficulty standing with assistance. It is suspected that the patient's syncope is combination of syncope from long standing orthostatic hypotension and not taking his medications of Fludrocortisone 0.2 mg after discharge and or fall from weakness. PT/OT have been ordered for potential rehab versus skilled placement. Case management consult has been ordered. The patient did have positive changes in his orthostatics with a 15 point drop in his systolic from supine to sitting and with a reported 60 point drop in his diastolic sitting from standing. I suspect the patient has not been taking his medications as directed although he denies this. (2) Acute renal failure superimposed on stage 3 chronic kidney disease: Qualifiers: Acute renal failure type: unspecified Chronic kidney disease stage 3 subtype: unspecified whether 3a or 3b Qualified Code(s): N17.9 - Acute kidney failure, unspecified; N18.30 - Chronic kidney disease, stage 3 unspecified Code(s): N17.9 - Acute kidney failure, unspecified; N18.30 - Chronic kidney disease, stage 3 unspecified Status: Acute Assessment and Plan: The patient has acute on chronic kidney injury due to rhabdomyolysis. Patient received 2 L of isotonic fluids in the ER. Will continue IV fluids at 150 mL an hour Cr improved from 3.5 to 2.2 with IV fluids. Continue monitoring repeat CK and BMP daily. Will monitor urine output closely. (3) Rhabdomyolysis: Qualifiers: Rhabdomyolysis type: non-traumatic Qualified Code(s): M62.82 - Rhabdomyolysis Code(s): M62.82 - Rhabdomyolysis Status: Acute Assessment and Plan: From being down on the ground for an un known amount of time. The patient is a very poor historian as to what happened in the few days he was at home after discharge. He states his neighbor called 911, but cannot tell me anything else. CK improved from 1300-800 with IV fluids. Will recheck in the morning. (4) Uncontrolled diabetes mellitus: Qualifiers: Diabetes mellitus type: type 2 Glycemic state: with hyperglycemia Qualified Code(s): E11.65 - Type 2 diabetes mellitus with hyperglycemia Code(s): E11.65 - Type 2 diabetes mellitus with hyperglycemia Status: Acute Assessment and Plan: The patient has historically uncontrolled diabetes mellitus but his glucoses are currently relatively euglycemic. His baseline hemoglobin A1c is greater than 10. Continue patient's long-acting insulin Will also continue moderate sliding scale insulin with Accu-Cheks a.c. HS and hypoglycemia protocol. (5) Memory loss, short term: Code(s): R41.3 - Other amnesia Status: Acute Assessment and Plan: Cognitive impairment Could be from underlying dementia and will need further evaluation by a neurologist after discharge and acute issue is resolved. CT Head showed There is mild periventricular and subcortical hypodensity probably related to small vessel ischemic disease. There is mild prominence of the sulci and ventricles related to cerebral atrophy. Prior visit, he had an EEG which showed no seizure activity Need outpatient follow up with DR. Veloz Neurology Time Spent With Patient Time with patient: 25 - 35 minutes Subjectiv
[2020-11-24 12:38] LABS: Glucose Point of Care 390 mg/dl (65-105)
[2020-11-24] MEDS: INSULIN ASPART (*BKC) 100 UNITS/ML 6 UNITS SUB-Q ×2 (12:39→17:39)
[2020-11-24 17:44] LABS: Glucose Point of Care 274 mg/dl (65-105)
[2020-11-24 20:56] LABS: Glucose Point of Care 260 mg/dl (65-105)
[2020-11-24] MEDS: SERTRALINE HCL 25 MG TABLET PO (21:09)
[2020-11-24] MEDS: ATORVASTATIN 40 MG TABLET PO (21:09)
[2020-11-24] MEDS: INSULIN GLARGINE (*BKC) 100 UNITS/ML 32 UNITS SUB-Q (21:09)
[2020-11-25] VITALS (14 sets, daily range): BP systolic 122–159; BP diastolic 53–111; PULSE 66–86; RESP 16–20; TEMP 36.1–36.9; O2SAT 94–100
[2020-11-25] MEDS: SODIUM CHLORIDE 0.9% IV 1,000 ML 150 ML IV CONT ×2 (05:29→11:59)
[2020-11-25 06:19] LABS: Hematocrit 33.7 % (42.0-52.0); Hemoglobin 11.6 g/dL (14.0-18.0); Mean Corpuscular HGB Conc 34.4 g/dl (32-36); Mean Corpuscular Hemoglobin 31.6 pg (26-34); Mean Corpuscular Volume 91.8 fl (80-100); Mean Platelet Volume 10.3 fl (7.4-10.4); Platelet Count Result 176 k/mm3 (150-375); Red Blood Count 3.67 M/mm3 (4.6-6.20); Red Cell Distribution Width 14.4 % (11.5-14.5); White Blood Count 5.7 K/mm3 (4.5-10.0)
[2020-11-25 06:55] LABS: Anion Gap 8 mmol/L (8-16); Blood Urea Nitrogen 33 mg/dL (9-20); Calcium 7.9 mg/dL (8.4-10.2); Carbon Dioxide 27 mmol/L (22-30); Chloride 106 mmol/L (98-107); Creatine Kinase 457 U/L (55-170); Estimated CRCL calculation 57 ml/min; Estimated Glomerular Filt Rate 51; Glucose 307 mg/dL (65-110); Potassium 3.6 mmol/L (3.4-5.0); Sodium 141 mmol/L (137-145)
[2020-11-25] MEDS: GABAPENTIN 400 MG CAPSULE PO ×3 (08:05→17:01)
[2020-11-25] MEDS: ASPIRIN 81 MG ENTERIC TABLET PO (08:05)
[2020-11-25] MEDS: MAGNESIUM OXIDE 400 MG TABLET PO (08:05)
[2020-11-25] MEDS: FLUDROCORTISONE ACETATE 0.1 MG TABLET 0.2 MG PO (08:05)
[2020-11-25] MEDS: METOPROLOL TARTRATE 50 MG TAB PO ×2 (08:06→20:49)
[2020-11-25] MEDS: INSULIN ASPART (*BKC) 100 UNITS/ML 6 UNITS SUB-Q (08:07)
[2020-11-25] MEDS: INSULIN ASPART (*BKC) 100 UNITS/ML SUB-Q (08:07)
[2020-11-25 08:32] LABS: Glucose Point of Care 263 mg/dl (65-105)
[2020-11-25 09:19] LABS: Glucose Point of Care 271 mg/dl (65-105)
[2020-11-25] MEDS: SILVERGEL (ELTA) 45 ML 1 APPLIC TOPICAL (11:01)
--- NOTE | 2020-11-25 11:38 | PM.IMPN ---
Progress Note: A&P Assessment and Plan (1) Syncope: Qualifiers: Syncope type: unspecified Qualified Code(s): R55 - Syncope and collapse Code(s): R55 - Syncope and collapse Status: Acute Assessment and Plan: Patient has now had 3 hospitalizations since November 09 due to recurrent syncope and/or DKA. Per previous provider, on arrival the nursing staff and mentioned the patient had significant difficulty standing with assistance. It is suspected that the patient's syncope is combination of syncope from long standing orthostatic hypotension and not taking his medications of Fludrocortisone 0.2 mg after discharge and or fall from weakness. PT/OT have been ordered for potential rehab versus skilled placement. Case management consult has been ordered. On arrival, the patient did have positive changes in his orthostatics with a 15 point drop in his systolic from supine to sitting and with a reported 60 point drop in his diastolic sitting from standing. I suspect the patient has not been taking his medications as directed although he denies this. Did orthostatic BP today which did have a 25 point drop systolically. (2) Acute renal failure superimposed on stage 3 chronic kidney disease: Qualifiers: Acute renal failure type: unspecified Chronic kidney disease stage 3 subtype: unspecified whether 3a or 3b Qualified Code(s): N17.9 - Acute kidney failure, unspecified; N18.30 - Chronic kidney disease, stage 3 unspecified Code(s): N17.9 - Acute kidney failure, unspecified; N18.30 - Chronic kidney disease, stage 3 unspecified Status: Acute Assessment and Plan: The patient has acute on chronic kidney injury due to rhabdomyolysis. Patient received 2 L of isotonic fluids in the ER. Will continue IV fluids at 150 mL an hour Cr improved from 3.5 to 1.4 with IV fluids. Continue monitoring repeat CK and BMP daily. Will monitor urine output closely. (3) Rhabdomyolysis: Qualifiers: Rhabdomyolysis type: non-traumatic Qualified Code(s): M62.82 - Rhabdomyolysis Code(s): M62.82 - Rhabdomyolysis Status: Acute Assessment and Plan: From being down on the ground for an un known amount of time. The patient is a very poor historian as to what happened in the few days he was at home after discharge. He states his neighbor called 911, but cannot tell me anything else. CK improved from 1300-500 with IV fluids. Will recheck in the morning. (4) Uncontrolled diabetes mellitus: Qualifiers: Diabetes mellitus type: type 2 Glycemic state: with hyperglycemia Qualified Code(s): E11.65 - Type 2 diabetes mellitus with hyperglycemia Code(s): E11.65 - Type 2 diabetes mellitus with hyperglycemia Status: Acute Assessment and Plan: The patient has historically uncontrolled diabetes mellitus but his glucoses are currently relatively euglycemic. His baseline hemoglobin A1c is greater than 10. Continue patient's long-acting insulin Will also continue moderate sliding scale insulin with Accu-Cheks a.c. HS and hypoglycemia protocol. (5) Memory loss, short term: Code(s): R41.3 - Other amnesia Status: Acute Assessment and Plan: Cognitive impairment Could be from underlying dementia and will need further evaluation by a neurologist after discharge and acute issue is resolved. CT Head showed There is mild periventricular and subcortical hypodensity probably related to small vessel ischemic disease. There is mild prominence of the sulci and ventricles related to cerebral atrophy. Prior visit, he had an EEG which showed no seizure activity Need outpatient follow up with DR. Veloz Neurology
[2020-11-25 11:59] LABS: Glucose Point of Care 155 mg/dl (65-105)
[2020-11-25] MEDS: INSULIN ASPART (*BKC) 100 UNITS/ML 8 UNITS SUB-Q ×2 (12:07→17:00)
[2020-11-25 16:56] LABS: Glucose Point of Care 156 mg/dl (65-105)
[2020-11-25 20:29] LABS: Glucose Point of Care 226 mg/dl (65-105)
[2020-11-25] MEDS: INSULIN GLARGINE (*BKC) 100 UNITS/ML 36 UNITS SUB-Q (20:48)
[2020-11-25] MEDS: ATORVASTATIN 40 MG TABLET PO (20:49)
[2020-11-25] MEDS: SERTRALINE HCL 25 MG TABLET PO (20:49)
[2020-11-26] VITALS: PULSE 79
[2020-11-26] MEDS: SODIUM CHLORIDE 0.9% IV 1,000 ML 150 ML IV CONT (00:26)
[2020-11-26 04:00] VITALS: PULSE 72
[2020-11-26 04:57] VITALS: BP 137/96; PULSE 78; RESP 18; TEMP 36.6; O2SAT 98
[2020-11-26 06:43] LABS: Anion Gap 9 mmol/L (8-16); Blood Urea Nitrogen 18 mg/dL (9-20); Calcium 8.2 mg/dL (8.4-10.2); Carbon Dioxide 29 mmol/L (22-30); Chloride 103 mmol/L (98-107); Creatine Kinase 218 U/L (55-170); Estimated CRCL calculation 71 ml/min; Estimated Glomerular Filt Rate > 60; Glucose 265 mg/dL (65-110); Potassium 3.5 mmol/L (3.4-5.0); Sodium 141 mmol/L (137-145)
[2020-11-26 07:35] LABS: Glucose Point of Care 231 mg/dl (65-105)
[2020-11-26 08:23] VITALS: PULSE 79
[2020-11-26] MEDS: METOPROLOL TARTRATE 50 MG TAB PO (08:23)
[2020-11-26] MEDS: MAGNESIUM OXIDE 400 MG TABLET PO (08:24)
[2020-11-26] MEDS: ASPIRIN 81 MG ENTERIC TABLET PO (08:24)
[2020-11-26] MEDS: FLUDROCORTISONE ACETATE 0.1 MG TABLET 0.2 MG PO (08:24)
[2020-11-26] MEDS: GABAPENTIN 400 MG CAPSULE PO (08:24)
[2020-11-26] MEDS: SILVERGEL (ELTA) 45 ML 1 APPLIC TOPICAL (08:27)
[2020-11-26] MEDS: INSULIN ASPART (*BKC) 100 UNITS/ML SUB-Q (09:04)
[2020-11-26] MEDS: INSULIN ASPART (*BKC) 100 UNITS/ML 8 UNITS SUB-Q (09:11)
--- NOTE | 2020-11-26 09:55 | PM.DS ---
DS: Admitting Diagnosis Discharge Date 11/26/20 Admitting Diagnosis Syncope DS: Discharge Diagnosis Discharge Diagnosis (1) Syncope: Qualifiers: Syncope type: unspecified Qualified Code(s): R55 - Syncope and collapse Code(s): R55 - Syncope and collapse Status: Acute Assessment and Plan: The patient is a 65-year-old male with past medical history of uncontrolled diabetes mellitus, chronic kidney disease stage 3, orthostatic hypotension, and poor short-term memory who presented to the ER via EMS with history of syncope with unknown down time. The patient is not clear on exactly how long that he was on the floor. The patient was recently admitted on November 08, 2020 with similar symptoms of dizziness and falling. At that time he was admitted into the ICU with DKA and ANDREW. He was discharged home on 11/11/2020 only to return to the emergency room a few hours later while [place] was [place] the bus [place] and had a loss of conscious episode. By the time EMS arrived he was still unresponsive but then regained consciousness and he was brought in for further workup and evaluation at that time. Patient had a Lexiscan stress test which showed frequent stress induced PACs, no definite ischemia or infarct. Mildly decreased EF of 50%. Echocardiogram showed moderate concentric increased LV thickness, normal EF greater than 70%. No significant valvular disease. Neurology did an EEG which showed no abnormalities noted in the tracing. During this evaluation the patient was found to have orthostatic hypotension and his Florinef was increased. The patient worked with PT prior to arrival and remained asymptomatic but continued to have some fluctuations in his blood pressure. Patient was discharged on 11/19/2020 and returned to the emergency room on 11/23/2020 after being found by EMS in his apartment on the floor and there was feces covering the area. Patient is a poor historian and cannot give much details as to what have been the few days since he was discharged home. Patient was found to be in rhabdomyolysis, and ANDREW and started on IV fluids. The patient CK level improved and creatinine returned to normal. The patient was alert and oriented to self, place, time, but cannot tell me the president's name. Multiple times on my evaluation he would repeat questions asked. He was adamant about returning home. Myself and the manager urgent care tried to talk the patient into going to a assisted rehab facility due to multiple hospitalizations, falls, and further monitoring. The patient refused. I told the patient if he returned home he can have another episode, risks of fracturing a bone, head bleed, and . The patient understands the risks but would like to return home. We did set up home health for him so he would have further evaluation after being discharged. Patient's orthostatics on 11/25/2020 showed a fluctuation of his systolic blood pressure from 147-123 standing. He was asymptomatic with this fluctuation. I discontinued the patient's lisinopril to try and prevent any interference of his Florinef for orthostatic hypotension. The patient is adamant that he has been taking all of his medications as prescribed. I discharged the patient home to follow-up with primary care provider within 1 week of discharge. The patient understands and agrees with the plan all questions answered. (2) Acute renal failure superimposed on stage 3 chronic kidney disease: Qualifiers: Acute renal failure type: unspecified Chronic kidney disease stage 3 subtype: unspecified whether 3a or 3b Qualified Code(s): N17.9 - Acute kidney failure, unspecified; N18.30 - Chronic kidney disease, stage 3 unspecified Code(s): N17.9 - Acute kidney failure, unspecified; N18.30 - Chronic kidney disease, stage 3 unspecified Status: Acute Assessment and Plan: Resolved
== END 2020-11-26 11:05 | disposition home health service (06) | DRG 558 ==
LOC: ANHED 20:00 → ANH3MED 20:20
PROVIDERS: Emergency Medicine; Physician Assistant; Admitting Provider Internal Medicine; Emergency Provider Emergency Medicine; PCP Family Medicine; Visit Provider Internal Medicine
DX: M62.82 Rhabdomyolysis (principal); N17.9 Acute kidney failure, unspecified; R55 Syncope and collapse; E11.65 Type 2 diabetes mellitus with hyperglycemia; R41.3 Other amnesia; E11.22 Type 2 diabetes mellitus with diabetic chronic kidney disease; E11.42 Type 2 diabetes mellitus with diabetic polyneuropathy; I12.9 Hypertensive chronic kidney disease with stage 1 through stage 4 chronic kidney disease, or unspecified chronic kidney disease; N18.30 Chronic kidney disease, stage 3 unspecified; I25.10 Atherosclerotic heart disease of native coronary artery without angina pectoris; I25.2 Old myocardial infarction; E78.5 Hyperlipidemia, unspecified; D64.9 Anemia, unspecified; S01.111A Laceration without foreign body of right eyelid and periocular area, initial encounter; X58.XXXA Exposure to other specified factors, initial encounter; Z79.4 Long term (current) use of insulin; Z79.82 Long term (current) use of aspirin; Z79.899 Other long term (current) drug therapy; Z86.73 Personal history of transient ischemic attack (TIA), and cerebral infarction without residual deficits; Z98.42 Cataract extraction status, left eye; Z98.41 Cataract extraction status, right eye; Z96.1 Presence of intraocular lens
CPT/HCPCS: 12011; 36415; 70450; 80048; 80307; 82550; 82948; 85025; 85027; 93005; 96360; 96361; 97110; 97161; 97165; 97530; 99285; A9270; G0378; G0379; J1815; J7030

== ENCOUNTER 2020-11-27 21:15 | Inpatient (IN) | payer MEDICARE, MEDICAID, SELFPAY ==
--- NOTE | ~2020-11-27 | CT_ITS ---
EXAMINATION: CTA chest PE protocol DATE: 11/29/2020 14:15 INDICATION: Recurrent syncope TECHNIQUE: Computed tomography angiography (CTA) of the chest was performed with 100 mL Omnipaque-350 intravenous contrast timed to evaluate the pulmonary arteries. Coronal maximum intensity projection 3D-reconstructions were created by the technologist. The dose-length product (DLP) was 489.59 mGy-cm. Automated exposure control and iterative reconstruction technique were employed. COMPARISON: 11/29/2018 FINDINGS: The pulmonary arteries are well-opacified. No pulmonary embolism is identified. There is mi ld atelectasis of the lower lobes. No pleural effusion or pneumothorax is identified. The cardiomedia stinal silhouette is normal. Calcified mediastinal lymph nodes are consistent with old granulomatous disease. There is bilateral gynecomastia. The gallbladder is surgically absent. There are bridging os teophytes at multiple levels in the spine, consistent with diffuse idiopathic skeletal hyperostosis ( DISH). IMPRESSION: 1. No pulmonary embolus. 2. Mild atelectasis. Reviewed, dictated and finalized at location A.
--- NOTE | ~2020-11-27 | CT_ITS ---
EXAMINATION: CT abdomen pelvis wo con DATE: 11/29/2020 14:14 INDICATION: Flank pain TECHNIQUE: Computed tomography (CT) of the abdomen and pelvis was performed without intravenous contr ast. The dose-length product (DLP) was 228.74 mGy-cm. Automated exposure control and iterative recons truction technique were employed. COMPARISON: 11/08/2020, 08/20/2020 FINDINGS: Minimal dependent atelectasis is present in the lung bases. The heart size is normal. Bilat eral gynecomastia is noted. The gallbladder is surgically absent. The liver, pancreas, and adrenal gl ands are normal. Punctate calcifications in an otherwise normal spleen likely represent healed granul omatous disease. The kidneys are unremarkable. No stones are identified in the kidneys, ureters, or b ladder. There is no hydronephrosis or hydroureter. Chronic periportal lymphadenopathy persists withou t significant change. The appendix is normal. There is no free intraperitoneal gas or evidence of bow el obstruction. There are bridging osteophytes at multiple levels in the spine, consistent with diffu se idiopathic skeletal hyperostosis (DISH). IMPRESSION: 1. No CT correlate for the patient's symptoms. 2. Chronic periportal lymphadenopathy, likely reactive Reviewed, dictated and finalized at location A.
--- NOTE | ~2020-11-27 | XR_ITS ---
XR lumbar spine 2-3V 11/29/2020 14:12 Indication: Tenderness in the low back Procedure: 3 views lumbar spine Comparison: No prior studies for comparison. Findings: Vertebral body heights are maintained. There is prominent ventral osteophyte at L2-3. There is mild multilevel facet hypertrophy. There is mild disc narrowing at L4-5 and L5-S1. There is resid ual contrast in nondilated renal collecting systems. Pedicles intact. Sacral foramen are symmetric. M ild levocurvature of the lumbar spine. Impression: 1: Mild lumbar spondylosis. Reviewed, dictated and finalized at location A. Impression: 1: Mild lumbar spondylosis.
--- NOTE | ~2020-11-27 | CT_ITS ---
EXAMINATION: CT brain wo con DATE: 11/29/2020 14:13 INDICATION: Confusion. Syncope. TECHNIQUE: Computed tomography (CT) of the head was performed without intravenous contrast. The dose- length product was 605.33 mGy-cm. Automated exposure control and iterative reconstruction technique w ere employed. 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 There is stable ventriculomegaly. No acute intracranial hemorrh age, infarction, mass or mass effect. Basilar cisterns are patent. Paranasal sinuses and mastoids are pneumatized. No depressed skull fractures. There is mild intracranial atherosclerosis. There are sca ttered mild periventricular and subcortical white matter changes, most likely related to small vessel ischemic disease (microangiopathy). IMPRESSION: 1. No acute intracranial abnormality. No significant interval change. Reviewed, dictated and finalized at location A.
[2020-11-27 21:16] VITALS: BP 119/97; PULSE 112; RESP 20; TEMP 36.6; O2SAT 98
[2020-11-27 21:54] LABS: Basophils Percent Auto 0.6 % (0.2-1.2); Eosinophils Absolute Auto 0.1 K/mm3 (0-0.3); Eosinophils Percent Auto 2.1 % (0-4.4); Hematocrit 39.4 % (42.0-52.0); Immature Granulocyte Absolute 0.01 K/mm3 (0.00-0.031); Immature Granulocyte Percent A 0.2 % (0-0.5); Lymphocytes Absolute Auto 1.72 K/mm3 (0.9-3.2); Lymphocytes Percent Auto 27.2 % (18.3-44.2); Mean Corpuscular Hemoglobin 31.4 pg (26-34); Mean Corpuscular Volume 95.2 fl (80-100); Mean Platelet Volume 10.9 fl (7.4-10.4); Monocytes Absolute Auto 0.4 K/mm3 (0.1-0.6); Monocytes Percent Auto 5.9 % (2.6-8.5); Neutrophils Absolute Auto 4.1 K/mm3 (1.3-6.7); Platelet Count Result 208 k/mm3 (150-375); Red Blood Count 4.14 M/mm3 (4.6-6.20); Red Cell Distribution Width 14.4 % (11.5-14.5); White Blood Count 6.3 K/mm3 (4.5-10.0)
[2020-11-27 22:09] LABS: Beta-Hydroxybutyrate/Acetoacetate 0.13 mmol/L (0.02-0.27)
[2020-11-27 22:22] LABS: Alanine Aminotransferase 31 U/L (4-50); Albumin Level 4.3 g/dL (3.5-5.1); Alkaline Phosphatase 125 U/L (38-126); Anion Gap 10 mmol/L (8-16); Aspartate Amino Transferase 41 U/L (17-59); Bilirubin,Total 0.6 mg/dL (0.2-1.3); Blood Urea Nitrogen 25 mg/dL (9-20); Calcium 9.1 mg/dL (8.4-10.2); Carbon Dioxide 30 mmol/L (22-30); Chloride 95 mmol/L (98-107); Estimated CRCL calculation 43 ml/min; Estimated Glomerular Filt Rate 44; Glucose 500 mg/dL (65-110); Magnesium 1.6 mg/dL (1.6-2.3); Phosphorus 3.8 mg/dL (2.5-4.5); Potassium 3.7 mmol/L (3.4-5.0); Sodium 135 mmol/L (137-145)
[2020-11-28] VITALS (11 sets, daily range): BP systolic 78–179; BP diastolic 50–97; PULSE 76–110; RESP 16–20; TEMP 36.8–37.1; O2SAT 95–99; BMI 28.0; BMI 25.0
--- NOTE | 2020-11-28 01:34 | PC.NURSE ---
pt sitting in wc, yelling intermittently about how upset he is regarding wait times. voice clear.
[2020-11-28 02:54] LABS: Glucose Point of Care 408 mg/dl (65-105)
[2020-11-28] MEDS: INSULIN HUMAN REGULAR (*BKC) 100 UNITS/ML IV PUSH (03:23)
[2020-11-28 04:38] LABS: Glucose Point of Care 342 mg/dl (65-105)
[2020-11-28] MEDS: SODIUM CHLORIDE 0.9% IV 1,000 ML 999 ML IV CONT (04:57)
--- NOTE | 2020-11-28 04:58 | ED.GENADULT ---
HPI - General Adult General Chief complaint: Unspecified Stated complaint: flank pain Time Seen by Provider: 11/28/20 02:30 History of Present Illness HPI narrative: Patient is a 65-year-old male who presents ER with chief complaint of feeling weak and unable to care for himself. Patient reports while at home anytime he gets up he feels like he is going to fall. Patient has had recent hospitalization here for orthostatic hypotension that is related to his autonomic neuropathy from diabetes. During the most recent hospitalization he was evaluated and it was recommended that he go to a intermediate facility however they met in the middle and sent him home with home health. He reports home health was not in his house today. He believes he is taking his medication as prescribed to control his diabetes. Blood sugar here is 500. Related Data Home Medications Medication Instructions Recorded Confirmed amlodipine 11/28/20 atorvastatin 11/28/20 gabapentin 11/28/20 insulin aspart U-100 [Novolog SUBCUT 11/28/20 Flexpen U-100 Insulin] insulin glargine [Lantus Solostar SUBCUT 11/28/20 U-100 Insulin] lisinopril 11/28/20 metformin mg 11/28/20 Allergies Allergy/AdvReac Type Severity Reaction Status Date / Time No Known Allergies Allergy Verified 11/28/20 03:10 Review of Systems Review of Systems: All systems reviewed & are unremarkable except as noted in HPI and below Constitutional: Constitutional: Denies chills, Reports fatigue and Denies fever(s) ENT: Denies nasal discharge and Denies sore throat Cardiovascular: Cardiovascular: Denies chest pain, Reports lightheadedness and Denies radiating jaw, neck or arm pain Respiratory: Respiratory: Denies cough and Denies dyspnea Gastrointestinal: Gastrointestinal: Denies abdominal pain, Denies diarrhea, Denies nausea and Denies vomiting Neurologic: Reports dizziness, Denies paresthesias and Denies weakness PMFSH Family History Family History (Updated 11/28/20 @ 06:50 by Vane Espinoza RN) Other Unknown family medical history Exam Narrative: GENERAL: Chronically ill-appearing, well-nourished, and in no acute distress. HEAD: Normocephalic, atraumatic. EYES: PERRL and EOMI. ENT: Mucous membranes moist. Abrasion to the forehead and bridge of the nose had resolved. CHEST: Clear to auscultation. No respiratory distress. HEART: Tachycardic and regular. Normal peripheral pulses. ABDOMEN: Soft, nontender, nondistended. EXTREMITIES: Normal range of motion. No edema. SKIN: Warm, dry, no rash. NEURO: Alert and oriented x3. Unsteady when standing. Course Course Emergency Course: Admit to hospitalist service. Patient's blood pressure dropped from 140 into the 70s when going from sitting to standing. This was repeated and went from 120s to 50s. Patient is clearly noncompliant with his home medication cannot care for himself at home. Admit for observation possible placement. Vital Signs Vital signs: Vital Signs Temperature 97.9 F 11/27/20 21:16 Pulse Rate 112 H 11/27/20 21:16 Respiratory Rate 20 11/27/20 21:16 Blood Pressure 119/97 H 11/27/20 21:16 Pulse Oximetry 98 11/27/20 21:16 Temperature 97.9 F 11/27/20 21:16 Pulse Rate 97 11/28/20 02:42 Respiratory Rate 17 11/28/20 02:42 Blood Pressure 148/78 H 11/28/20 02:42 Pulse Oximetry 99 11/28/20 02:42 Medical Decision Making Vital Signs Vital Signs: Vital Signs Temperature 97.9 F 11/27/20 21:16 Pulse Rate 112 H 11/27/20 21:16 Respiratory Rate 20 11/27/20 21:16 Blood Pressure 119/97 H 11/27/20 21:16 Pulse Oximetry 98 11/27/20 21:16 Temperature 97.9 F 11/27/20 21:16 Pulse Rate 97 11/28/20 02:42 Respiratory Rate 17 11/28/20 02:42 Blood Pressure 148/78 H 11/28/20 02:42 Pulse Oximetry 99 11/28/20 02:42 Lab Data Result diagrams: 11/27/20 21:40 11/27/20 21:40 Labs: Lab Results 11/27/20 11/27/20
[2020-11-28] MEDS: FLUDROCORTISONE ACETATE 0.1 MG TABLET 0.5 MG PO (05:29)
--- NOTE | 2020-11-28 06:49 | ADMGEN ---
This patient, Jorge Alberto Cortez, was admitted to [facility] Surg Room 321-02. Patient/family oriented to hospital policies and general routines including ID bracelet, bed and alarms, visiting hours, pain management, procedures, bathroom and other care routines, personal items, smoking policy, room service/diet, and visiting hours. Information on how to activate the Rapid Response Team has been discussed. Patient/Family are encouraged to report perceived risks to care and to ask questions if they do not understand what they are told or what they should do.
--- NOTE | 2020-11-28 07:56 | PM.IMHP ---
H&P: HPI History of Present Illness Date/Time: 11/28/20 07:56 Chief Complaint: Flank pain Narrative: The patient is a 65-year-old male with past medical history of uncontrolled diabetes mellitus, chronic kidney disease stage 3, orthostatic hypotension, and poor short-term memory who presented to the ER via EMS for right lower back/flank pain. Then on arrival to the ER he told the triage nurse that he just did not feel right and thought he was going to fall down. Upon my questioning as to what happened in the last 1.5 days since he was discharged. He told me he went home. He had a syncopal episode in the [place] of his apartment 11/26 and his neighbor found him on the ground. Then, 11/27 he tripped over something in the floor and fell which prompted him to call 911 for pain. I asked him if he has been eating and taking his medications for which he says yes . He then told me about a story of his 3 year old grandson coming over to his house on Monday to broiler chef or cook with him. I told the patient he was in the hospital Monday and then he couldn't remember the days correctly. I told him that the EMS report says he was complaining of back/flank pain and he could not remember those symptoms. He denied any issues at this time. He denies any fever, chills, nausea, vomiting, abdominal pain, diarrhea, chest pain, SOB, cough, leg swelling, calf pain, focal weakness, headache, lightheadedness, dizziness, or any other symptoms at this time. Patient has two Account Numbers which cannot be combined at this time [facility] Medical History (Updated 11/28/20 @ 10:36 by Yessy Noonan PA-C) Arthritis CAD (coronary artery disease) Negative stress test November 2018 patient's senior communications specialist is Dr. 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 Diabetic nephropathy Diabetic retinopathy S/p retinal surgery Diastolic dysfunction Noted on prior echocardiogram but most recent echocardiogram demonstrating hyperdynamic left ventricle with EF greater than 70% with no mention of diastolic dysfunction Essential hypertension History of angina Hyperlipidemia Kidney stones NSTEMI (non-ST elevated myocardial infarction) With chronic troponin elevation Orthostatic hypotension Paroxysmal atrial fibrillation Not on anticoagulation due to high has bled score/high fall risk Peripheral neuropathy Surgical History (Updated 11/28/20 @ 10:36 by Yessy Noonan PA-C) History of cholecystectomy History of loop recorder patient states that it no longer works. Status post cataract extraction of both eyes with insertion of intraocular lens Family History (Updated 11/28/20 @ 10:36 by Yessy Noonan PA-C) Sibling Hypertension Father Polycystic kidney disease Colon cancer Diabetes mellitus Prostate carcinoma Mother Cerebrovascular accident CHF (congestive heart failure) Diabetes mellitus Acute myocardial infarction Social History (Updated 11/28/20 @ 10:36 by Yessy Noonan PA-C) Social History: He is and lives alone in an apartment complex for seniors. He does not drive due to his poor vision. He is otherwise independent activities of daily living. He is retired from the [employer]. He designates his sister, Yaz as his surrogate decision maker and he wishes to be a full code. He has 2 daughters who are relatively healthy. Smoking status: Never smoker Second hand tobacco smoke exposure: No Alcohol intake: never Substance use: never Substance use type: does not use Additional living arrangements comments: The patient is currently living alone. He had been placed in a residential for 3 years previously until he had corrective surgery for vision loss associat
[2020-11-28 08:46] LABS: Glucose Point of Care 251 mg/dl (65-105)
[2020-11-28 12:03] LABS: Basophils Absolute Auto 0.1 K/mm3 (0.0-0.1); Basophils Percent Auto 0.9 % (0.2-1.2); Eosinophils Absolute Auto 0.2 K/mm3 (0-0.3); Eosinophils Percent Auto 3.1 % (0-4.4); Hematocrit 33.6 % (42.0-52.0); Hemoglobin 11.2 g/dL (14.0-18.0); Immature Granulocyte Absolute 0.01 K/mm3 (0.00-0.031); Immature Granulocyte Percent A 0.2 % (0-0.5); Lymphocytes Absolute Auto 1.73 K/mm3 (0.9-3.2); Lymphocytes Percent Auto 29.6 % (18.3-44.2); Mean Corpuscular HGB Conc 33.3 g/dl (32-36); Mean Corpuscular Hemoglobin 31.5 pg (26-34); Mean Corpuscular Volume 94.6 fl (80-100); Mean Platelet Volume 10.7 fl (7.4-10.4); Monocytes Absolute Auto 0.4 K/mm3 (0.1-0.6); Monocytes Percent Auto 6.8 % (2.6-8.5); Neutrophils Absolute Auto 3.5 K/mm3 (1.3-6.7); Neutrophils Percent Auto 59.4 % (45.5-73.1); Platelet Count Result 176 k/mm3 (150-375); Red Blood Count 3.55 M/mm3 (4.6-6.20); Red Cell Distribution Width 14.1 % (11.5-14.5); White Blood Count 5.9 K/mm3 (4.5-10.0)
[2020-11-28 12:14] LABS: Add Urine Microscopic? YES; Appearance Urine Clear (Clear); Bilirubin Urine Negative (Negative); Blood Urine Negative (Negative); Color Urine Straw (Yellow); Glucose Urine UA 3+ mg/dL (Negative); Ketones Urine Negative (Negative); Leukocyte Esterase Ur Negative LEU/UL (Negative); Nitrate Urine Negative (Negative); Protein Urine 2+ mg/dL (Negative); RBC Urine 0-2 /hpf (0-2); Specific Grav Ur 1.017 (1.001-1.035); Squamous Epithelial Cell Urine Rare /hpf (Few); Urobilinogen Urine Negative mg/dL (<2.0); WBC Urine 0-3 /hpf
[2020-11-28] MEDS: INSULIN ASPART (*BKC) 100 UNITS/ML SUB-Q ×2 (12:15→17:03)
[2020-11-28] MEDS: SODIUM CHLORIDE 0.9% IV 1,000 ML 125 ML IV CONT (12:17)
[2020-11-28 12:19] LABS: Magnesium 1.5 mg/dL (1.6-2.3)
[2020-11-28 12:21] LABS: Alanine Aminotransferase 27 U/L (4-50); Albumin Level 3.7 g/dL (3.5-5.1); Alkaline Phosphatase 108 U/L (38-126); Anion Gap 9 mmol/L (8-16); Aspartate Amino Transferase 36 U/L (17-59); Bilirubin,Total 0.5 mg/dL (0.2-1.3); Blood Urea Nitrogen 24 mg/dL (9-20); Calcium 8.5 mg/dL (8.4-10.2); Carbon Dioxide 28 mmol/L (22-30); Chloride 100 mmol/L (98-107); Creatine Kinase 68 U/L (55-170); Estimated CRCL calculation 61 ml/min; Estimated Glomerular Filt Rate 55; Glucose 377 mg/dL (65-110); Potassium 3.5 mmol/L (3.4-5.0); Sodium 137 mmol/L (137-145)
[2020-11-28 12:35] LABS: Glucose Point of Care 382 mg/dl (65-105)
[2020-11-28] MEDS: GABAPENTIN 400 MG CAPSULE PO ×2 (13:15→21:27)
[2020-11-28] MEDS: METOPROLOL TARTRATE 50 MG TAB PO ×2 (13:16→21:27)
[2020-11-28] MEDS: ASPIRIN 81 MG CHEWABLE TABLET PO (13:16)
[2020-11-28] MEDS: FLUDROCORTISONE ACETATE 0.1 MG TABLET 0.2 MG PO (13:16)
[2020-11-28] MEDS: SILVERGEL (ELTA) 45 ML 1 APPLIC TOPICAL (13:16)
[2020-11-28] MEDS: MAGNESIUM OXIDE 400 MG TABLET PO (13:16)
[2020-11-28] MEDS: ENOXAPARIN 40 MG/0.4 ML SYRINGE SUB-Q (13:17)
[2020-11-28] MEDS: INSULIN ASPART (*BKC) 100 UNITS/ML 6 UNITS SUB-Q ×2 (13:21→17:05)
[2020-11-28] MEDS: MAGNESIUM SULFATE 3GM/D5W100ML 3 GM/100 ML BAG IVPB (13:22)
[2020-11-28] MEDS: POTASSIUM CHLORIDE 20 MEQ TABLET 40 MEQ PO (15:25)
[2020-11-28 17:17] LABS: Glucose Point of Care 322 mg/dl (65-105)
[2020-11-28] MEDS: SERTRALINE HCL 25 MG TABLET PO (21:26)
[2020-11-28] MEDS: ATORVASTATIN 40 MG TABLET PO (21:26)
[2020-11-28] MEDS: PANTOPRAZOLE 40 MG TABLET PO (21:26)
[2020-11-28] MEDS: INSULIN GLARGINE (*BKC) 100 UNITS/ML 32 UNITS SUB-Q (21:34)
[2020-11-28 21:36] LABS: Glucose Point of Care 293 mg/dl (65-105)
[2020-11-29] VITALS (9 sets, daily range): BP systolic 97–191; BP diastolic 41–93; PULSE 66–80; RESP 18–20; TEMP 36.1–36.8; O2SAT 96–100
[2020-11-29] MEDS: SODIUM CHLORIDE 0.9% IV 1,000 ML 125 ML IV CONT (03:24)
[2020-11-29] MEDS: GABAPENTIN 400 MG CAPSULE PO ×3 (06:21→20:41)
[2020-11-29 06:40] LABS: Hematocrit 33.2 % (42.0-52.0); Hemoglobin 11.1 g/dL (14.0-18.0); Mean Corpuscular HGB Conc 33.4 g/dl (32-36); Mean Corpuscular Hemoglobin 31.6 pg (26-34); Mean Corpuscular Volume 94.6 fl (80-100); Mean Platelet Volume 10.7 fl (7.4-10.4); Platelet Count Result 178 k/mm3 (150-375); Red Blood Count 3.51 M/mm3 (4.6-6.20); Red Cell Distribution Width 14.3 % (11.5-14.5); White Blood Count 5.4 K/mm3 (4.5-10.0)
[2020-11-29 06:51] LABS: Anion Gap 5 mmol/L (8-16); Blood Urea Nitrogen 17 mg/dL (9-20); Calcium 8.5 mg/dL (8.4-10.2); Carbon Dioxide 31 mmol/L (22-30); Chloride 105 mmol/L (98-107); Estimated CRCL calculation 78 ml/min; Estimated Glomerular Filt Rate > 60; Glucose 235 mg/dL (65-110); Magnesium 2.1 mg/dL (1.6-2.3); Potassium 3.3 mmol/L (3.4-5.0); Sodium 141 mmol/L (137-145)
[2020-11-29 08:10] LABS: Glucose Point of Care 215 mg/dl (65-105)
[2020-11-29] MEDS: FLUDROCORTISONE ACETATE 0.1 MG TABLET 0.2 MG PO (08:31)
[2020-11-29] MEDS: ENOXAPARIN 40 MG/0.4 ML SYRINGE SUB-Q (08:31)
[2020-11-29] MEDS: MAGNESIUM OXIDE 400 MG TABLET PO (08:32)
[2020-11-29] MEDS: ASPIRIN 81 MG CHEWABLE TABLET PO (08:33)
[2020-11-29] MEDS: PANTOPRAZOLE 40 MG TABLET PO ×2 (08:33→20:41)
[2020-11-29] MEDS: INSULIN ASPART (*BKC) 100 UNITS/ML 6 UNITS SUB-Q ×3 (08:34→17:27)
[2020-11-29] MEDS: METOPROLOL TARTRATE 50 MG TAB PO ×2 (08:34→20:41)
[2020-11-29] MEDS: SILVERGEL (ELTA) 45 ML 1 APPLIC TOPICAL (08:34)
[2020-11-29] MEDS: INSULIN ASPART (*BKC) 100 UNITS/ML SUB-Q ×2 (08:35→12:43)
[2020-11-29] MEDS: POTASSIUM CHLORIDE 20 MEQ TABLET 40 MEQ PO (10:24)
--- NOTE | 2020-11-29 10:36 | PM.IMPN ---
Progress Note: A&P Assessment and Plan (1) Autonomic orthostatic hypotension: Code(s): I95.1 - Orthostatic hypotension Status: Acute Assessment and Plan: The patient reports an episode of syncope he before coming in. He reports to being compliant with all of his medications and compression stockings. Will continue with his Florinef 0.2 mg and compression stockings. Will check Head CT which has still not been completed Will check orthostatic blood pressure with these things in place. (2) Unable to care for self: Code(s): Z78.9 - Other specified health status Status: Acute Assessment and Plan: At this point in time, I do not feel the patient is safe to go home and take care of himself. I do believe there is a component of memory loss and he needs to be further evaluated by a neurologist. I will consult a neurologist at this time for their opinion on the patient. He did tell me I could call his sister Yaz and I will trying get more information from her as to how the patient has been acting lately. Concerns with him going home, falling, syncope and coming back to emergency room like he has the last 3 times. (3) Flank pain: Code(s): R10.9 - Unspecified abdominal pain Status: Acute Assessment and Plan: Will obtain a CT abdomen pelvis which has still not been completed. He denies any history of kidney stones in the past. (4) ANDREW (acute kidney injury): Code(s): N17.9 - Acute kidney failure, unspecified Status: Acute Assessment and Plan: Creatinine when he left the hospital was 1.1 on 11/26/2020. Creatinine on arrival was 1.6. The patient states he has been eating and drinking like normal taking his medications. Cr 1.0 which is normal. D/c IV fluids now. (5) Uncontrolled diabetes mellitus: Code(s): E11.65 - Type 2 diabetes mellitus with hyperglycemia Status: Acute Assessment and Plan: Patient's glucose on arrival was 500. Patient states he has been taking all his medications as prescribed. Continue home medications Glucose checks a.c. HS. Hypoglycemic protocol in place. Sliding scale insulin. (6) Memory loss: Code(s): R41.3 - Other amnesia Status: Acute Assessment and Plan: Will consult neurology for further evaluation and workup. Lexiscan stress test which showed frequent stress induced PACs, no definite ischemia or infarct. Mildly decreased EF of 50%. Echocardiogram showed moderate concentric increased LV thickness, normal EF greater than 70%. No significant valvular disease. Neurology did an EEG which showed no abnormalities noted in the tracing. During this evaluation the patient was found to have orthostatic hypotension and his Florinef was increased. Time Spent With Patient Time with patient: 25 - 35 minutes Subjective Date/time seen: 11/29/20 10:36 Interval history: Date of Service 11/29/20: The patient reports feeling well today without any complaints. He is taking a nap after eating his breakfast. He denies any chest pain, shortness of breath, cough, nausea, vomiting, abdominal pain, back pain, lightheadedness, dizziness, near-syncope or any other symptoms at this time. Review of Systems Review of Systems: All systems reviewed & are unremarkable except as noted in HPI and below Exam Narrative: General: 65-year-old man laying flat in bed taking a nap on his right side. Appears comfortable. In no acute distress. HEENT: Traumatic. Old abrasion to right eyebrow from last visit. Old abrasion to bridge of nose with slight erythema. No ecchymosis. Skin: No jaundice or cyanosis. Good skin turgor. Neck: Full range of motion. Supple. Nontender to midline cervical spine. Respiratory: Lungs are clear to auscultation bilaterally. No bony chest wall tenderness. Cardiovascular: The heart has a regular rate and rhythm without murmur. Lower extremities: No lower extremity linsey
[2020-11-29 11:56] LABS: Glucose Point of Care 219 mg/dl (65-105)
--- NOTE | 2020-11-29 14:41 | WPDNEURCNPN ---
Assessment and Plan Additional Plan uncontrolled diabetes with gait dysfunction, memory dysfunction, negative with CT of the head with no space-occupying lesion could very well be dealing with autonomic dysfunction with recurrent falls in addition to underlying early dementia will need B12, folate level, T4 and TSH, and EMG nerve conduction study as an outpatient for the lower extremities and while here a routine EEG Consult date: 11/29/20 Time Seen: 14:30 HPI: Jorge Alberto Cortez is a 65 year old male right-handed male has been admitted to the hospital for the complaints of flank pain. In addition patient has ongoing history of 1. Uncontrolled diabetes mellitus 2. Chronic renal disease stage III 3. Orthostatic hypotension 4. Poor short-term memory. On initial evaluation he reported he just did not feel [place] right and as if he was going to fall down he had a syncopal episode in the [place] of his apartment when his neighbor found him on the ground next day he tripped over something in the floor and fell which prompted him to call 911 for pain subsequently he mention that about a story of 3 years old grandson coming over to his house on Monday to glue cook with him but at that time he was in the hospital that is on Monday and he was unable to recall the correct sequence, he does have a history of multiple medical problems as outlined, he is not a smoker or drinker, and has been taking sertraline 25 mg at night along with gabapentin 400 mg 3 times a day and all other diabetic treatment, evaluation up until now included normal CT scan of the head, in spondylosis on lumbar spine x-rays, routine lab with blood sugar fluctuating more than 200 and elevated D-dimer of 0.80 also chest CTA has been done reports pending Review of Systems Review of Systems: All systems reviewed & are unremarkable except as noted in HPI and below [facility] Family History Family History Other Unknown family medical history Social History Social History Smoking status: Never smoker Alcohol intake: former Substance use: never Spiritual care concerns: No Meds Home Medications and Allergies Home Medications Medication Instructions Recorded Confirmed Type aspirin 81 mg PO DAILY 11/28/20 11/28/20 History atorvastatin 40 mg PO HS 11/28/20 11/28/20 History fludrocortisone 0.2 mg PO DAILY 11/28/20 11/28/20 History gabapentin 400 mg PO TID 11/28/20 11/28/20 History insulin aspart U-100 [Novolog 6 unit SUBCUT TIDWM 11/28/20 11/28/20 History Flexpen U-100 Insulin] insulin glargine [Lantus Solostar 32 unit SUBCUT HS 11/28/20 11/28/20 History U-100 Insulin] magnesium oxide 400 mg PO DAILY 11/28/20 11/28/20 History metoprolol tartrate 50 mg PO Q12H 11/28/20 11/28/20 History sertraline 25 mg PO HS 11/28/20 11/28/20 History silver [Silver-Sept] 1 applic TOPICAL DAILY 11/28/20 11/28/20 History Allergies Allergy/AdvReac Type Severity Reaction Status Date / Time No Known Allergies Allergy Verified 11/28/20 03:10 Vital Signs Vital Signs - 24 hr 11/28/20 20:00 11/28/20 21:27 11/28/20 22:00 Temperature 37.1 C Pulse Rate 84 76 84 Respiratory Rate 20 20 Blood Pressure 179/97 H Pulse Oximetry 95 95 11/29/20 06:00 11/29/20 08:00 11/29/20 08:34 Temperature 36.8 C Pulse Rate 80 78 Respiratory Rate 20 Blood Pressure 156/83 H Pulse Oximetry 96 96 Exam Const: General: cooperative, comfortable and no acute distress Nutritional Appearance: average body habitus Orientation/consciousness: oriented to person and oriented to place Limitations: no limitations HENMT: Head: normal to inspection Ears: hearing grossly normal bilaterally General nose exam: Normal external nose present Face and sinus: normal facial exam Mouth: Yes Normal oral and palatal mucosa present Eyes: General: appearance normal, both eyes and all related structu
[2020-11-29 17:04] LABS: Glucose Point of Care 200 mg/dl (65-105)
[2020-11-29] MEDS: SERTRALINE HCL 25 MG TABLET PO (20:42)
[2020-11-29] MEDS: ATORVASTATIN 40 MG TABLET PO (20:42)
[2020-11-29] MEDS: INSULIN GLARGINE (*BKC) 100 UNITS/ML 37 UNITS SUB-Q (20:44)
[2020-11-29 21:13] LABS: Glucose Point of Care 155 mg/dl (65-105)
[2020-11-30] MEDS: GABAPENTIN 400 MG CAPSULE PO ×2 (05:41→15:35)
[2020-11-30 06:00] VITALS: BP 151/80; PULSE 80; RESP 20; TEMP 36.9; O2SAT 94
[2020-11-30 06:25] LABS: Anion Gap 6 mmol/L (8-16); Blood Urea Nitrogen 14 mg/dL (9-20); Calcium 8.1 mg/dL (8.4-10.2); Carbon Dioxide 30 mmol/L (22-30); Chloride 103 mmol/L (98-107); Estimated CRCL calculation 71 ml/min; Estimated Glomerular Filt Rate > 60; Glucose 262 mg/dL (65-110); Magnesium 1.8 mg/dL (1.6-2.3); Potassium 3.6 mmol/L (3.4-5.0); Sodium 139 mmol/L (137-145)
[2020-11-30 08:00] VITALS: O2SAT 94
[2020-11-30 09:00] LABS: Glucose Point of Care 194 mg/dl (65-105)
[2020-11-30] MEDS: INSULIN ASPART (*BKC) 100 UNITS/ML 6 UNITS SUB-Q ×2 (09:04→13:21)
[2020-11-30 09:05] VITALS: PULSE 68
[2020-11-30] MEDS: ENOXAPARIN 40 MG/0.4 ML SYRINGE SUB-Q (09:05)
[2020-11-30] MEDS: FLUDROCORTISONE ACETATE 0.1 MG TABLET 0.2 MG PO (09:05)
[2020-11-30] MEDS: METOPROLOL TARTRATE 50 MG TAB PO (09:05)
[2020-11-30] MEDS: ASPIRIN 81 MG CHEWABLE TABLET PO (09:05)
[2020-11-30] MEDS: SILVERGEL (ELTA) 45 ML 1 APPLIC TOPICAL (09:06)
[2020-11-30] MEDS: MAGNESIUM OXIDE 400 MG TABLET PO (09:06)
[2020-11-30] MEDS: PANTOPRAZOLE 40 MG TABLET PO (09:06)
[2020-11-30 12:12] LABS: Folic Acid 8.3 ng/mL (2.76->20)
[2020-11-30 13:06] LABS: Glucose Point of Care 204 mg/dl (65-105)
[2020-11-30] MEDS: INSULIN ASPART (*BKC) 100 UNITS/ML SUB-Q (13:21)
--- NOTE | 2020-11-30 13:23 | PM.DS ---
DS: Admitting Diagnosis Discharge Date 11/30/20 Admitting Diagnosis Fall DS: Discharge Diagnosis Discharge Diagnosis (1) Autonomic orthostatic hypotension: Code(s): I95.1 - Orthostatic hypotension Status: Acute Assessment and Plan: The patient is a 65-year-old male with past medical history of uncontrolled diabetes mellitus, chronic kidney disease stage 3, orthostatic hypotension, and poor short-term memory who presented to the ER via EMS for right lower back/flank pain. Then on arrival to the ER he told the triage nurse that he just did not feel right and thought he was going to fall down. Initial vitals showed blood pressure 119/97, heart rate 112 tachycardic, afebrile, normal oxygenation on room air. Initial labs showed normal white blood cell count, normocytic anemia with a hemoglobin of 13, normal differential, slight hyponatremia at 135, elevated creatinine 1.6, BUN 25, glucose 500, magnesium slightly low at 1.6, LFTs normal. Normal beta hydroxybutyrate. Urinalysis shows no signs of infection. CT head showed no acute intracranial abnormality. CTA chest due to elevated D-dimer showed no pulmonary embolism, mild atelectasis. Abdominal CT shows no correlation for a patient's symptoms. Lumbar spine showed mild lumbar spondylosis. Patient was admitted into the hospital for further evaluation monitor and IV fluid hydration. Creatinine improved and electrolytes stabilized. Patient was found to have low vitamin B12 and given IM cyanocobalamin 1000 mcg and then PO cyanocobalamin 1000 mcg po daily. I did consult Neurology who evaluated his MRI, CT brain, an EEG from his prior hospitalization. Neurology feels at this time he is stable for discharge and if he gets admitted 1 more time then we need to consider skilled nursing placement. I did call his sister multiple times during his hospitalization to get more information and to see if someone could check on him. She never answered the phone. We did set him up with home health so hopefully they can further evaluate him and make sure he is taking all his medications as prescribed to prevent further hospitalizations. Dr. Dooley recommend following up as an outpatient for further evaluation monitoring possible EMG testing Spent much time talking to the patient about him needing to go to a group home rehab facility upon discharge or to have a family member help him with his medications. Told him about the risk of going home alone and passing out and having a hemorrhagic stroke verses broken hip verses . I told him is most important medication is as Florinef to prevent him from having syncopal episodes. I told him to take are newly updated medication list and when he gets home make sure he has all the correct medications. Patient understands and agrees the plan. He states he has been taking all his medication as prescribed. Return to ER warnings given. Patient understands agrees the plan all questions answered. (2) Unable to care for self: Code(s): Z78.9 - Other specified health status Status: Acute (3) Flank pain: Code(s): R10.9 - Unspecified abdominal pain Status: Acute Assessment and Plan: Resolved (4) ANDREW (acute kidney injury): Code(s): N17.9 - Acute kidney failure, unspecified Status: Acute Assessment and Plan: Baseline cr (5) Uncontrolled diabetes mellitus: Code(s): E11.65 - Type 2 diabetes mellitus with hyperglycemia Status: Acute Assessment and Plan: (6) Memory loss: Code(s): R41.3 - Other amnesia Status: Acute DS: Summary Hospital Course Hospital Course: See above Status at Discharge Cognitive/behavioral status at discharge: Stable, improved. Time Spent with Patient Time attestation: Total time spent providing and/or coordinating discharge services: 41 Time spent: Greater than 30 minutes Exam Narrative: General: 65-year-old man laying flat
[2020-11-30 14:00] VITALS: BP 142/71; PULSE 73; RESP 20; TEMP 37.2; O2SAT 99
[2020-11-30] MEDS: CYANOCOBALAMIN INJ 1,000 MCG/ML VIAL 1000 MCG IM (14:50)
== END 2020-11-30 16:15 | disposition home health service (06) | DRG 312 ==
LOC: ANHED 11-28 04:09 → ANH3MEDSUR 11-28 05:50
PROVIDERS: Physician Assistant; Admitting Provider Internal Medicine; Emergency Provider Emergency Medicine; PCP Family Medicine; Visit Provider Family Medicine
DX: I95.1 Orthostatic hypotension (principal); N17.9 Acute kidney failure, unspecified; I48.20 Chronic atrial fibrillation, unspecified; Z91.14 Patient's other noncompliance with medication regimen; E11.65 Type 2 diabetes mellitus with hyperglycemia; E11.22 Type 2 diabetes mellitus with diabetic chronic kidney disease; N18.30 Chronic kidney disease, stage 3 unspecified; E11.43 Type 2 diabetes mellitus with diabetic autonomic (poly)neuropathy; M19.90 Unspecified osteoarthritis, unspecified site; I25.10 Atherosclerotic heart disease of native coronary artery without angina pectoris; E11.21 Type 2 diabetes mellitus with diabetic nephropathy; E11.319 Type 2 diabetes mellitus with unspecified diabetic retinopathy without macular edema; D64.9 Anemia, unspecified; F03.90 Unspecified dementia, unspecified severity, without behavioral disturbance, psychotic disturbance, mood disturbance, and anxiety; E78.5 Hyperlipidemia, unspecified; R41.3 Other amnesia; I25.2 Old myocardial infarction; Z90.49 Acquired absence of other specified parts of digestive tract; Z98.42 Cataract extraction status, left eye; Z98.41 Cataract extraction status, right eye; Z87.442 Personal history of urinary calculi; Z78.9 Other specified health status
CPT/HCPCS: 36415; 70450; 71275; 72100; 74176; 80048; 80053; 81001; 82010; 82550; 82607; 82746; 82948; 83735; 84100; 84443; 85025; 85027; 85380; 86140; 96361; 96365; 96372; 96375; 97161; 97165; 99285; A9270; G0378; J1650; J1815; J3420; J3475; J7030; Q9967

== ENCOUNTER 2020-12-02 15:18 | Emergency (ER) | payer MEDICAID, SELFPAY ==
--- NOTE | ~2020-12-02 | XR_ITS ---
EXAMINATION: XR chest 1V portable DATE: 12/02/2020 16:21 INDICATION: Chronic cough TECHNIQUE: frontal view of the chest was obtained. COMPARISON: 11/09/[address] dated 11/29/2020 FINDINGS: Persistent mild bibasilar opacities. No pleural effusion or pneumothorax. The cardiomediastinal silho uette is normal. 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 IMPRESSION: 1. Persistent mild bibasilar opacities which could represent atelectasis, mild pulmonary edema or les s likely pneumonia. Reviewed, dictated and finalized at location [facility]. IMPRESSION: 1. Persistent mild bibasilar opacities which could represent atelectasis, mild pulmonary edema or less likely pneumonia.
[2020-12-02 15:18] VITALS: BP 98/83; PULSE 105; RESP 18; TEMP 36.9; O2SAT 96
[2020-12-02 15:25] LABS: Glucose Point of Care > 500 mg/dl (65-105)
--- NOTE | 2020-12-02 16:04 | ECG_ITS ---
Measurements Intervals [place] Rate: 97 P: 27 IA: 173 QRS: 72 QRSD: 92 T: 192 QT: 388 QTc: 493 Interpretive Statements SINUS RHYTHM LEFT VENTRICULAR HYPERTROPHY AND ST-T CHANGE T WAVE ABNORMALITY IN LATERAL LEADS- CONSIDER ISCHEMIA ABNORMAL ECG Electronically Signed On 12-02-2020 19:22:13 CDT by Colin Moreland D.O.
--- NOTE | 2020-12-02 16:13 | ED.GENADULT ---
HPI - General Adult General Chief complaint: Recheck/Abnormal Lab/Rx Stated complaint: ELEVATED BS Time Seen by Provider: 12/02/20 16:02 Source: patient and EMS Mode of arrival: EMS History of Present Illness HPI narrative: 65-year-old male with history of chronic kidney disease insulin-dependent diabetes with sugar at home also with orthostatic hypotension discharged 2 days ago from this hospital for the same brought in by ambulance today after syncope and sugar of greater than 500 prior to arrival. Patient denies fever, denies cough, no diarrhea, does consider himself weak, states he was standing in the common room with his building when he went to go throw something out he fell over towards the side. No chest pain, no shortness of breath, no vomiting. No other complaints. Related Data Home Medications Medication Instructions Recorded Confirmed gabapentin 400 mg PO TID 01/08/19 11/23/20 Allergies Allergy/AdvReac Type Severity Reaction Status Date / Time No Known Allergies Allergy Verified 11/30/20 10:12 Review of Systems Review of Systems: CONSTITUTIONAL: no fever, no weight loss, positive for confusion EYES: no vision changes, no eye pain ENT: no rhinorrhea, no sore throat, no difficulty swallowing CARDIOVASCULAR: no chest pain, no leg edema, no palpitations RESPIRATORY: no cough, no shortness of breath, no hemoptysis GASTROINTESTINAL: no abdominal pain, no nausea, no vomiting, no diarrhea GENITOURINARY: no flank pain, no dysuria, no hematuria SKIN: no rash, no jaundice MUSCULOSKELETAL: no back pain, no trauma. 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 Diabetic nephropathy Diabetic retinopathy S/p retinal surgery Diastolic dysfunction Noted on prior echocardiogram but most recent echocardiogram demonstrating hyperdynamic left ventricle with EF greater than 70% with no mention of diastolic dysfunction Essential hypertension History of angina Hyperlipidemia Kidney stones NSTEMI (non-ST elevated myocardial infarction) With chronic troponin elevation Orthostatic hypotension Paroxysmal atrial fibrillation Not on anticoagulation due to high has bled score/high fall risk Peripheral neuropathy Surgical History Surgical History History of cholecystectomy History of loop recorder patient states that it no longer works. Status post cataract extraction of both eyes with insertion of intraocular lens Family History Family History Sibling Hypertension Father Polycystic kidney disease Colon cancer Diabetes mellitus Prostate carcinoma Mother Cerebrovascular accident CHF (congestive heart failure) Diabetes mellitus Acute myocardial infarction Other Unknown family medical history Social History Social History Social History: He is and lives alone in an apartment complex for seniors. He does not drive due to his poor vision. He is otherwise independent activities of daily living. He is retired from the [employer]. He designates his sister, Yaz as his surrogate decision maker and he wishes to be a full code. He has 2 daughters who are relatively healthy. Smoking status: Never smoker Second hand tobacco
[2020-12-02] MEDS: SODIUM CHLORIDE 0.9% IV 1,000 ML 999 ML IV CONT (16:46)
[2020-12-02 17:17] LABS: Basophils Percent Auto 0.7 % (0.2-1.2); Eosinophils Absolute Auto 0.1 K/mm3 (0-0.3); Eosinophils Percent Auto 1.5 % (0-4.4); Hematocrit 32.5 % (42.0-52.0); Hemoglobin 10.9 g/dL (14.0-18.0); Immature Granulocyte Absolute 0.01 K/mm3 (0.00-0.031); Immature Granulocyte Percent A 0.2 % (0-0.5); Lymphocytes Absolute Auto 1.04 K/mm3 (0.9-3.2); Lymphocytes Percent Auto 18.9 % (18.3-44.2); Mean Corpuscular HGB Conc 33.5 g/dl (32-36); Mean Corpuscular Hemoglobin 31.6 pg (26-34); Mean Corpuscular Volume 94.2 fl (80-100); Mean Platelet Volume 10.9 fl (7.4-10.4); Monocytes Absolute Auto 0.3 K/mm3 (0.1-0.6); Monocytes Percent Auto 6.2 % (2.6-8.5); Neutrophils Percent Auto 72.5 % (45.5-73.1); Platelet Count Result 166 k/mm3 (150-375); Red Blood Count 3.45 M/mm3 (4.6-6.20); Red Cell Distribution Width 14.5 % (11.5-14.5); White Blood Count 5.5 K/mm3 (4.5-10.0)
[2020-12-02 17:23] LABS: INR 0.9; Partial Thromboplastin Time 27.1 SECONDS (22.3-36.8); Prothrombin Time 12.2 Seconds (11.1-14.7)
[2020-12-02 17:25] LABS: Magnesium 1.6 mg/dL (1.6-2.3)
[2020-12-02 17:33] LABS: Alanine Aminotransferase 23 U/L (4-50); Albumin Level 3.7 g/dL (3.5-5.1); Alkaline Phosphatase 125 U/L (38-126); Anion Gap 10 mmol/L (8-16); Aspartate Amino Transferase 29 U/L (17-59); Bilirubin,Total 0.4 mg/dL (0.2-1.3); Blood Urea Nitrogen 18 mg/dL (9-20); Carbon Dioxide 27 mmol/L (22-30); Chloride 98 mmol/L (98-107); Estimated CRCL calculation 55 ml/min; Estimated Glomerular Filt Rate 51; Glucose 551 mg/dL (65-110); Sodium 135 mmol/L (137-145)
[2020-12-02 17:46] LABS: Troponin I 0.059 ng/mL (0.000-0.034)
--- NOTE | 2020-12-02 18:36 | PC.NURSE ---
Patient urine was collected in the computer prior to patient providing sample. Attempted to reorder the urine, but it was not working. Charge nurse informed of this. Lab called, informed to just send the urine with generic label and they will be able to run. ATN: Ernestine to be sent on note. Will continue to monitor.
[2020-12-02] MEDS: INSULIN HUMAN REGULAR (*BKC) 100 UNITS/ML 8 UNITS SUB-Q (18:44)
[2020-12-02 18:49] VITALS: BP 163/74; PULSE 87; RESP 18; O2SAT 98
[2020-12-02 19:42] LABS: Glucose Point of Care 413 mg/dl (65-105)
[2020-12-02 19:47] VITALS: BP 158/83; PULSE 87; RESP 15; O2SAT 97
[2020-12-02 20:54] LABS: Glucose Point of Care 397 mg/dl (65-105)
--- NOTE | 2020-12-02 20:54 | PC.NURSE ---
aware of new accucheck of 397. OK for discharge
[2020-12-02 23:25] VITALS: BP 157/84; PULSE 88; RESP 17; TEMP 36.8; O2SAT 97
== END 2020-12-02 22:00 | disposition home or self-care (01) ==
PROVIDERS: Emergency Provider Emergency Medicine; PCP Family Medicine
DX: E11.65 Type 2 diabetes mellitus with hyperglycemia (principal); Z79.4 Long term (current) use of insulin; M19.90 Unspecified osteoarthritis, unspecified site; I25.10 Atherosclerotic heart disease of native coronary artery without angina pectoris; I12.9 Hypertensive chronic kidney disease with stage 1 through stage 4 chronic kidney disease, or unspecified chronic kidney disease; E11.22 Type 2 diabetes mellitus with diabetic chronic kidney disease; N18.30 Chronic kidney disease, stage 3 unspecified; E78.5 Hyperlipidemia, unspecified; Z87.442 Personal history of urinary calculi
CPT/HCPCS: 36415; 71045; 80053; 82948; 83735; 84484; 85025; 85610; 85730; 93005; 96360; 96361; 99284; J1815; J7030

== ENCOUNTER 2020-12-05 22:00 | Observation (INO) | payer MEDICAID, SELFPAY ==
--- NOTE | ~2020-12-05 | CT_ITS ---
EXAMINATION: CT abdomen pelvis w con DATE: 12/06/2020 01:23 INDICATION: Generalized abdominal pain. Nausea and vomiting. TECHNIQUE: Computed tomography (CT) of the abdomen and pelvis was performed with 100 cc Omnipaque 350 intravenous contrast. Automated exposure control and iterative reconstruction technique were employe d. Exam dose: 751.62 mGy-cm total exam DLP. COMPARISON: 12/16/2020 CT abdomen pelvis FINDINGS: Mild atelectatic or fibrotic changes at the lung bases. Normal heart size. No pericardial o r pleural effusion. Status post cholecystectomy. No hepatic, splenic, pancreatic space-occupying mass lesion. The adrenal glands are unremarkable. No renal mass lesion or urinary tract calculus or hydroureteronephrosis. There is some prominence of the wall of the anterior aspect of the urinary bladder which may be due t o underdistention. Urinary bladder lesion is not excluded. Normal caliber of the abdominal aorta. No intraperitoneal or retroperitoneal or pelvic mass lesion or adenopathy or ascites. Normal appendix. Diverticulosis of left and right colon; no CT evidence of diverticulitis. Prominent right penile corpora calcification. Diffuse idiopathic skeletal hyperostosis of the thoracic spine. Very prominent bridging osteophytes a t the L2-3 level. No suspicious osteolytic or osteoblastic lesions are noted. IMPRESSION: Normal appendix Status post cholecystectomy The urinary bladder is not well demonstrated due to underdistention Reviewed, dictated and finalized at [facility]. Reviewed, dictated and finalized at location A.
[2020-12-05 22:03] VITALS: BP 105/56; PULSE 115; RESP 14; TEMP 36.8; O2SAT 99
[2020-12-05 22:21] LABS: Glucose Point of Care 80 mg/dl (65-105)
[2020-12-05 23:06] VITALS: BP 91/66; PULSE 103; RESP 18; TEMP 36.9; O2SAT 98
[2020-12-05 23:09] VITALS: BP 91/66; PULSE 101; RESP 16; O2SAT 99
--- NOTE | 2020-12-05 23:10 | PC.NURSE ---
Report received and care of pt assumed at this time.
--- NOTE | 2020-12-05 23:19 | ECG_ITS ---
Measurements Intervals [place] Rate: 97 P: 65 TN: 168 QRS: 0 QRSD: 110 T: 262 QT: 372 QTc: 473 Interpretive Statements SINUS RHYTHM FREQUENT ATRIAL PREMATURE COMPLEXES LEFT VENTRICULAR HYPERTROPHY WITH ST-T CHANGE ST-T WAVE ABNORMALITY IN ANTEROLAT/INF LEADS- CONSIDER ISCHEMIA BASELINE ARTIFACT- II, III, AVR, AVF, V3-V6 ABNORMAL ECG Electronically Signed On 12-06-2020 7:37:51 CDT by Colin Moreland D.O.
[2020-12-05 23:46] VITALS: BP 139/62; PULSE 97; RESP 17; O2SAT 96
[2020-12-06] VITALS (15 sets, daily range): BP systolic 116–168; BP diastolic 54–88; PULSE 84–108; RESP 14–19; TEMP 36.4–36.9; O2SAT 95–100; BMI 27.6
[2020-12-06 00:14] LABS: Basophils Percent Auto 0.4 % (0.2-1.2); Eosinophils Absolute Auto 0.1 K/mm3 (0-0.3); Eosinophils Percent Auto 1.3 % (0-4.4); Hematocrit 38.3 % (42.0-52.0); Hemoglobin 13.1 g/dL (14.0-18.0); Immature Granulocyte Absolute 0.03 K/mm3 (0.00-0.031); Immature Granulocyte Percent A 0.4 % (0-0.5); Lymphocytes Absolute Auto 1.95 K/mm3 (0.9-3.2); Lymphocytes Percent Auto 24.4 % (18.3-44.2); Mean Corpuscular HGB Conc 34.2 g/dl (32-36); Mean Corpuscular Hemoglobin 31.5 pg (26-34); Mean Corpuscular Volume 92.1 fl (80-100); Mean Platelet Volume 10.5 fl (7.4-10.4); Monocytes Absolute Auto 0.5 K/mm3 (0.1-0.6); Monocytes Percent Auto 6.5 % (2.6-8.5); Neutrophils Absolute Auto 5.4 K/mm3 (1.3-6.7); Platelet Count Result 231 k/mm3 (150-375); Red Blood Count 4.16 M/mm3 (4.6-6.20); Red Cell Distribution Width 14.1 % (11.5-14.5)
[2020-12-06 00:25] LABS: Lactic Acid Reflex 2.9 mmol/L (0.7-2.1)
[2020-12-06 00:37] LABS: Glucose 45 mg/dL (65-110)
[2020-12-06 00:38] LABS: Alanine Aminotransferase 25 U/L (4-50); Albumin Level 4.2 g/dL (3.5-5.1); Alkaline Phosphatase 107 U/L (38-126); Anion Gap 11 mmol/L (8-16); Aspartate Amino Transferase 38 U/L (17-59); Bilirubin,Total 0.4 mg/dL (0.2-1.3); Blood Urea Nitrogen 21 mg/dL (9-20); Calcium 9.6 mg/dL (8.4-10.2); Carbon Dioxide 31 mmol/L (22-30); Chloride 97 mmol/L (98-107); Estimated CRCL calculation 44 ml/min; Estimated Glomerular Filt Rate 38; Lipase 34 U/L (23-300); Potassium 2.6 mmol/L (3.4-5.0); Sodium 139 mmol/L (137-145)
[2020-12-06 00:45] LABS: Glucose Point of Care 28 mg/dl (65-105)
[2020-12-06] MEDS: DEXTROSE 50% 25 GM/50 ML SYRINGE IV PUSH ×2 (00:45→01:54)
[2020-12-06 00:50] LABS: Add Urine Microscopic? YES; Appearance Urine Clear (Clear); Bilirubin Urine Negative (Negative); Blood Urine Negative (Negative); Color Urine Straw (Yellow); Glucose Urine UA 3+ mg/dL (Negative); Ketones Urine Trace mg/dL (Negative); Leukocyte Esterase Ur Negative LEU/UL (Negative); Mucus Urine Rare /lpf; Nitrate Urine Negative (Negative); Protein Urine 3+ mg/dL (Negative); RBC Urine 0-2 /hpf (0-2); Specific Grav Ur 1.029 (1.001-1.035); Squamous Epithelial Cell Urine Rare /hpf (Few); Urobilinogen Urine Negative mg/dL (<2.0); WBC Urine 0-3 /hpf
[2020-12-06 01:00] LABS: Glucose Point of Care 130 mg/dl (65-105)
[2020-12-06 01:58] LABS: Glucose Point of Care 37 mg/dl (65-105)
[2020-12-06] MEDS: DEXTROSE 5%/0.9% SOD CHL 1,000 ML 150 ML IV CONT (02:05)
--- NOTE | 2020-12-06 02:07 | ED.GENADULT ---
HPI - General Adult General Chief complaint: Abdominal Pain Stated complaint: Abdominal pain Time Seen by Provider: 12/05/20 23:12 History of Present Illness HPI narrative: Patient 65-year-old gentleman who presents the emergency department with chief complaint of abdominal discomfort generalized weakness and diabetic issues. The patient was seen in the emergency department several days after he had hyperglycemia patient reports he has had some nausea and vomiting and reports that his had abdominal discomfort. Patient is very vague in his description of his symptoms initially EMS had a blood sugar of 120 upon arrival to the emergency department Accu-Chek showed a blood sugar of 80. Related Data Home Medications Medication Instructions Recorded Confirmed gabapentin 400 mg PO TID 01/08/19 11/23/20 Allergies Allergy/AdvReac Type Severity Reaction Status Date / Time No Known Allergies Allergy Verified 11/30/20 10:12 Review of Systems Review of Systems: A 10 system review of systems was completed on the patient and is negative except for what is stated in the HPI. Nursing and ancillary documentation was reviewed. 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 Diabetic nephropathy Diabetic retinopathy S/p retinal surgery Diastolic dysfunction Noted on prior echocardiogram but most recent echocardiogram demonstrating hyperdynamic left ventricle with EF greater than 70% with no mention of diastolic dysfunction Essential hypertension History of angina Hyperlipidemia Kidney stones NSTEMI (non-ST elevated myocardial infarction) With chronic troponin elevation Orthostatic hypotension Paroxysmal atrial fibrillation Not on anticoagulation due to high has bled score/high fall risk Peripheral neuropathy Surgical History Surgical History History of cholecystectomy History of loop recorder patient states that it no longer works. Status post cataract extraction of both eyes with insertion of intraocular lens Family History Family History Sibling Hypertension Father Polycystic kidney disease Colon cancer Diabetes mellitus Prostate carcinoma Mother Cerebrovascular accident CHF (congestive heart failure) Diabetes mellitus Acute myocardial infarction Other Unknown family medical history Social History Social History Social History: He is and lives alone in an apartment complex for seniors. He does not drive due to his poor vision. He is otherwise independent activities of daily living. He is retired from the [employer]. He designates his sister, Yaz as his surrogate decision maker and he wishes to be a full code. He has 2 daughters who are relatively healthy. Smoking status: Never smoker Second hand tobacco smoke exposure: No Alcohol intake: never Substance use: never Substance use type: does not use Additional living arrangements comments: The patient is currently living alone. He had been placed in a halfway for 3 years previously until he had corrective surgery for vision loss associated with his diabetes. He was discharged from halfway December 2017. Additional occupation/education comments: He is retired from a local [employer] where he worked for 35 years. He is now on disability fo
[2020-12-06 02:12] LABS: Glucose Point of Care 140 mg/dl (65-105)
[2020-12-06 02:22] LABS: Magnesium 1.6 mg/dL (1.6-2.3)
[2020-12-06 02:40] LABS: Troponin I 0.164 ng/mL (0.000-0.034)
[2020-12-06 02:42] LABS: Glucose Point of Care 113 mg/dl (65-105)
[2020-12-06 03:12] LABS: Reflex Lactic Acid Yes or No Add Lactic
[2020-12-06 03:14] LABS: Glucose Point of Care 103 mg/dl (65-105)
[2020-12-06 03:40] LABS: Glucose Point of Care 98 mg/dl (65-105)
[2020-12-06] MEDS: POTASSIUM CHLORIDE 20 MEQ PACKET (FOR LIQUID) 40 MEQ PO (03:54)
[2020-12-06] MEDS: ASPIRIN 81 MG CHEWABLE TABLET 324 MG PO (03:54)
--- NOTE | 2020-12-06 04:06 | PC.NURSE ---
This pt is a very difficult stick for lab draws. This RN has tried x3 to draw blood. Another ED RN has tried twice. Two different techs have tried to draw blood as well. The initial blood draw was performed by phlebotomy. Phlebotomy was not available at this time to come to the ED.
[2020-12-06 04:07] LABS: Glucose Point of Care 126 mg/dl (65-105)
[2020-12-06 05:10] LABS: Glucose Point of Care 164 mg/dl (65-105)
--- NOTE | 2020-12-06 05:20 | PC.NURSE ---
Multiple attemts for blood draw on this patient , by multiple RN s. Unable to obtain lab specimen at this time. Attempted to contact educational coordinator multiple times,no answer. Dr. Smallwood aware. Ok to wait at this time for labs.
--- NOTE | 2020-12-06 05:27 | PC.NURSE ---
Pt sent to floor with IV fluids running so IV end time not documented by this RN.
--- NOTE | 2020-12-06 05:33 | PC.NURSE ---
Dr. Smallwood obtained blood for trop and lactic acid. Spec. sent to lab.
[2020-12-06 05:57] LABS: Lactic Acid 0.8 mmol/L (0.7-2.1)
[2020-12-06 05:57] LABS: Creatine Kinase 60 U/L (55-170)
--- NOTE | 2020-12-06 06:18 | ADMGEN ---
This patient, Jorge Alberto Cortez, was admitted to Intensive Care Unit-1 at 0538. Patient/family oriented to hospital policies and general routines including ID bracelet, bed and alarms, visiting hours, pain management, procedures, bathroom and other care routines, personal items, smoking policy, room service/diet, and visiting hours. Information on how to activate the Rapid Response Team has been discussed. Patient/Family are encouraged to report perceived risks to care and to ask questions if they do not understand what they are told or what they should do.
[2020-12-06 06:28] LABS: Troponin I 0.148 ng/mL (0.000-0.034)
[2020-12-06 06:35] LABS: Glucose Point of Care 197 mg/dl (65-105)
--- NOTE | 2020-12-06 07:24 | PM.IMHP ---
H&P: HPI History of Present Illness Date/Time: 12/06/20 07:24 Chief Complaint: Not feeling right Narrative: 65-year-old male well-known to the hospital service currently on his 5th admission into the hospital and 4th interaction with the ER department since September who presented to the ER with blood sugar acting up. He told me that he was just not feeling right. He could not provide me much more detail. When I specifically asked he indicated he had some right lower quadrant abdominal pain initially. However this pain is now gone. He has not had any nausea or vomiting. He still adamantly states that he checks his sugars 4 in 5 times a day and takes his home medicines. He states that he has been eating and has had a good appetite. His glucose in the field was 120. The patient had a CT of the abdomen pelvis in the ER that was negative. The patient was conscious when EMS arrived to his home and his glucose was 120.The has been admitted numerous times due to recurrent syncope from orthostatic hypotension, DKA and or hypoglycemia ever since September. During the last several hospitalizations is been noted the patient has moderate to severe short-term memory loss likely indicative of previously undiagnosed dementia. Today the patient is again technically alert oriented to person place and time. However the patient reported to me that he came into the ER not because of diabetic problems but because his neighbor called EMS when she saw him laying on the floor through the window. However EMS did not reports that the patient was unconscious. The patient stated that his blood sugars were low at home however EMS reported the patient had euglycemia in the field. The patient's glucose when he arrived to the ER was 100. Any only became hypoglycemic after he had been in the ER for some time. The patient had multiple dextrose supplements in the ER and continued to have hypoglycemia as low as 20. He was subsequently admitted in this setting. The patient otherwise has no complaints he. He has chronic wounds to his left foot on the left medial great toe 3rd left toe and lateral distal left metatarsal. These wounds do not appear changed from his prior hospitalization and are dry and clean without evidence of infection. Review of Systems Review of Systems: 12 systems were reviewed with pertinent positives and negatives per HPI. Except as documented in the HPI, all other systems were reviewed and are negative. 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 Diabetic nephropathy Diabetic retinopathy S/p retinal surgery Diastolic dysfunction Noted on prior echocardiogram but most recent echocardiogram demonstrating hyperdynamic left ventricle with EF greater than 70% with no mention of diastolic dysfunction Essential hypertension History of angina Hyperlipidemia Kidney stones NSTEMI (non-ST elevated myocardial infarction) With chronic troponin elevation Orthostatic hypotension Paroxysmal atrial fibrillation Not on anticoagulation due to high has bled score/high fall risk Peripheral neuropathy Surgical History Surgical History History of cholecystectomy History of loop recorder patient states that it no longer works. Status post cataract extraction of both eyes with insertion of intraocular lens Family History Family History Sibling Hypertension Father Polycystic kidney disease
[2020-12-06 08:12] LABS: Glucose Point of Care 254 mg/dl (65-105)
[2020-12-06] MEDS: SILVERGEL (ELTA) 45 ML 1 APPLIC TOPICAL (09:15)
[2020-12-06] MEDS: GABAPENTIN 400 MG CAPSULE PO ×3 (09:15→16:42)
[2020-12-06] MEDS: FLUDROCORTISONE ACETATE 0.1 MG TABLET 0.2 MG PO (09:15)
[2020-12-06] MEDS: CYANOCOBALAMIN 1,000 MCG TABLET 1000 MCG PO (09:15)
[2020-12-06] MEDS: ASPIRIN 81 MG ENTERIC TABLET PO (09:16)
[2020-12-06] MEDS: MAGNESIUM OXIDE 400 MG TABLET PO (09:16)
[2020-12-06] MEDS: METOPROLOL TARTRATE 12.5 MG TABLET PO (09:16)
[2020-12-06] MEDS: POTASSIUM CHLORIDE 20 MEQ TABLET.ER PO (09:16)
[2020-12-06 09:21] LABS: Glucose Point of Care 302 mg/dl (65-105)
[2020-12-06] MEDS: INSULIN ASPART (*BKC) 100 UNITS/ML SUB-Q ×3 (09:38→16:42)
[2020-12-06 10:07] LABS: Glucose Point of Care 304 mg/dl (65-105)
[2020-12-06] MEDS: INSULIN GLARGINE (*BKC) 100 UNITS/ML 20 UNITS SUB-Q (10:20)
[2020-12-06 12:00] LABS: Glucose Point of Care 353 mg/dl (65-105)
--- NOTE | 2020-12-06 14:25 | PC.NURSE ---
This patient, Jorge Alberto Cortez, was transferred to [facility] 12/06/20 at 1425. Personal belongings sent with patient. Report given to KEELY De Souza. Appropriate documentation sent with patient.
--- NOTE | 2020-12-06 14:39 | PC.NURSE ---
This patient, Jorge Alberto Cortez, was received from ICU-1 on 12/06/20 at 1430. Patient/family oriented to unit policies and routines. Received report from KEELY Neely.
--- NOTE | 2020-12-06 15:03 | PM.IMPN ---
Progress Note: A&P Assessment and Plan (1) Hypokalemia: Code(s): E87.6 - Hypokalemia Status: Acute (2) Diabetes mellitus with hypoglycemia without coma: Code(s): E11.649 - Type 2 diabetes mellitus with hypoglycemia without coma Status: Acute (3) Hypoglycemia: Code(s): E16.2 - Hypoglycemia, unspecified Status: Acute (4) H/O: HTN (hypertension): Code(s): Z86.79 - Personal history of other diseases of the circulatory system Status: Chronic (5) Hyperlipidemia: Code(s): E78.5 - Hyperlipidemia, unspecified Status: Chronic (6) Paroxysmal atrial fibrillation: Code(s): I48.0 - Paroxysmal atrial fibrillation Status: Chronic (7) Chronic anemia: Code(s): D64.9 - Anemia, unspecified Status: Chronic (8) Chronic kidney disease: Qualifiers: Chronic kidney disease stage: stage 3 (moderate) Qualified Code(s): N18.3 - Chronic kidney disease, stage 3 (moderate) Code(s): N18.9 - Chronic kidney disease, unspecified Status: Chronic (9) Acute renal insufficiency: Code(s): N28.9 - Disorder of kidney and ureter, unspecified Status: Acute (10) Elevated troponin: Code(s): R79.89 - Other specified abnormal findings of blood chemistry Status: Acute (11) Memory loss, short term: Code(s): R41.3 - Other amnesia Status: Acute (12) Uncontrolled diabetes mellitus: Qualifiers: Diabetes mellitus type: type 2 Glycemic state: with hyperglycemia Qualified Code(s): E11.65 - Type 2 diabetes mellitus with hyperglycemia Code(s): E11.65 - Type 2 diabetes mellitus with hyperglycemia Status: Acute (13) Autonomic orthostatic hypotension: Code(s): I95.1 - Orthostatic hypotension Status: Acute (14) Unable to care for self: Code(s): Z78.9 - Other specified health status Status: Acute Additional Plan # Altered mental status likely due to hypoglycemia no signs of infection evident # Hypoglycemia severe needed D5 water infusion now getting hyperglycemic. He states that he took Lantus 20 units in the morning and 20 units in the evening like is supposed to. Not sure the reason for his hypoglycemia. Will initiate Lantus 20 units daily for now from add sliding scale insulin # ANDREW on chronic kidney disease stage 3 admission creatinine of 1.8 baseline creatinine of 1 continue IV hydration # hypokalemia replace and monitor # elevated troponin has chronic elevation flat trajectory # vomiting episode CT abdomen unremarkable no further episodes lipase normal # history of uncontrolled diabetes mellitus # Chronic kidney disease is stage III # Orthostatic hypotension # Poor short-term memory # vitamin B12 deficiency # recurrent admissions refused shelter placement in the past # DVT prophylaxis: Heparin subQ Subjective Date/time seen: 12/06/20 15:03 Interval history: Was found to be confused and EMS was called all is remember was when he was back in the hospital. His blood sugar low but has been stabilized now denies any fever chills shortness of breath chest pain abdominal pain nausea vomiting Review of Systems Review of Systems: All systems reviewed & are unremarkable except as noted in HPI and below (HPI) Exam Narrative: General: 65-year-old man laying flat in bed resting. Appears comfortable. In no acute distress. HEENT: Atraumatic. Normocephalic Skin: No jaundice or cyanosis. Good skin turgor. Neck: Full range of motion. Supple. Nontender to midline cervical spine. Respiratory: Lungs are clear to auscultation bilaterally. No bony chest wall tenderness. Cardiovascular: The heart has a regular rate and rhythm without murmur. Lower extremities: No lower extremity edema. Distal pulses are easily palpated. No calf tenderness to palpation. Gastrointestinal: The abdomen is soft, nontender and nondistended with active bowel sounds. Psychiatric: Lucid and o
[2020-12-06 16:21] LABS: Glucose Point of Care 212 mg/dl (65-105)
[2020-12-06 17:11] LABS: Anion Gap 7 mmol/L (8-16); Blood Urea Nitrogen 18 mg/dL (9-20); Calcium 8.8 mg/dL (8.4-10.2); Carbon Dioxide 31 mmol/L (22-30); Chloride 98 mmol/L (98-107); Estimated CRCL calculation 57 ml/min; Estimated Glomerular Filt Rate 51; Glucose 251 mg/dL (65-110); Potassium 3.5 mmol/L (3.4-5.0); Sodium 136 mmol/L (137-145)
[2020-12-06] MEDS: SERTRALINE HCL 25 MG TABLET PO (21:08)
[2020-12-06] MEDS: ATORVASTATIN 40 MG TABLET PO (21:08)
[2020-12-06] MEDS: HEPARIN SODIUM 5,000 UNITS/ML VIAL 5000 UNITS SUB-Q (21:08)
[2020-12-06 21:17] LABS: Glucose Point of Care 275 mg/dl (65-105)
[2020-12-07 04:19] VITALS: BP 174/76; PULSE 90; RESP 18; TEMP 37; O2SAT 94
[2020-12-07 05:14] LABS: Basophils Percent Auto 0.8 % (0.2-1.2); Eosinophils Absolute Auto 0.2 K/mm3 (0-0.3); Eosinophils Percent Auto 3.4 % (0-4.4); Hematocrit 32.9 % (42.0-52.0); Hemoglobin 11.2 g/dL (14.0-18.0); Immature Granulocyte Absolute 0.01 K/mm3 (0.00-0.031); Immature Granulocyte Percent A 0.2 % (0-0.5); Lymphocytes Absolute Auto 1.98 K/mm3 (0.9-3.2); Lymphocytes Percent Auto 41.9 % (18.3-44.2); Mean Corpuscular Hemoglobin 31.7 pg (26-34); Mean Corpuscular Volume 93.2 fl (80-100); Monocytes Absolute Auto 0.3 K/mm3 (0.1-0.6); Monocytes Percent Auto 6.4 % (2.6-8.5); Neutrophils Absolute Auto 2.2 K/mm3 (1.3-6.7); Neutrophils Percent Auto 47.3 % (45.5-73.1); Platelet Count Result 164 k/mm3 (150-375); Red Blood Count 3.53 M/mm3 (4.6-6.20); Red Cell Distribution Width 14.4 % (11.5-14.5); White Blood Count 4.7 K/mm3 (4.5-10.0)
[2020-12-07 05:28] LABS: Anion Gap 4 mmol/L (8-16); Blood Urea Nitrogen 16 mg/dL (9-20); Calcium 8.4 mg/dL (8.4-10.2); Carbon Dioxide 31 mmol/L (22-30); Chloride 99 mmol/L (98-107); Estimated CRCL calculation 65 ml/min; Estimated Glomerular Filt Rate > 60; Glucose 330 mg/dL (65-110); Potassium 3.5 mmol/L (3.4-5.0); Sodium 134 mmol/L (137-145)
[2020-12-07 07:51] LABS: Glucose Point of Care 286 mg/dl (65-105)
[2020-12-07 08:03] VITALS: PULSE 90
[2020-12-07] MEDS: CYANOCOBALAMIN 1,000 MCG TABLET 1000 MCG PO (08:03)
[2020-12-07] MEDS: HEPARIN SODIUM 5,000 UNITS/ML VIAL 5000 UNITS SUB-Q (08:03)
[2020-12-07] MEDS: METOPROLOL TARTRATE 12.5 MG TABLET PO (08:03)
[2020-12-07] MEDS: FLUDROCORTISONE ACETATE 0.1 MG TABLET 0.2 MG PO (08:03)
[2020-12-07] MEDS: GABAPENTIN 400 MG CAPSULE PO ×2 (08:03→12:37)
[2020-12-07] MEDS: ASPIRIN 81 MG ENTERIC TABLET PO (08:03)
[2020-12-07] MEDS: POTASSIUM CHLORIDE 20 MEQ TABLET.ER PO (08:03)
[2020-12-07] MEDS: MAGNESIUM OXIDE 400 MG TABLET PO (08:04)
[2020-12-07] MEDS: INSULIN ASPART (*BKC) 100 UNITS/ML SUB-Q ×2 (08:10→11:35)
[2020-12-07 11:32] LABS: Glucose Point of Care 349 mg/dl (65-105)
[2020-12-07] MEDS: INSULIN GLARGINE (*BKC) 100 UNITS/ML 30 UNITS SUB-Q (11:35)
[2020-12-07 14:00] VITALS: BP 151/61; PULSE 78; RESP 16; TEMP 36.8; O2SAT 96
--- NOTE | 2020-12-07 14:17 | PM.DS ---
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 Code(s): E11.649 - Type 2 diabetes mellitus with hypoglycemia without coma Status: Acute (3) Hypoglycemia: Code(s): E16.2 - Hypoglycemia, unspecified Status: Acute (4) H/O: HTN (hypertension): Code(s): Z86.79 - Personal history of other diseases of the circulatory system Status: Chronic (5) Hyperlipidemia: Code(s): E78.5 - Hyperlipidemia, unspecified Status: Chronic (6) Paroxysmal atrial fibrillation: Code(s): I48.0 - Paroxysmal atrial fibrillation Status: Chronic (7) Chronic anemia: Code(s): D64.9 - Anemia, unspecified Status: Chronic (8) Chronic kidney disease: Qualifiers: Chronic kidney disease stage: stage 3 (moderate) Qualified Code(s): N18.3 - Chronic kidney disease, stage 3 (moderate) Code(s): N18.9 - Chronic kidney disease, unspecified Status: Chronic (9) Acute renal insufficiency: Code(s): N28.9 - Disorder of kidney and ureter, unspecified Status: Acute (10) Elevated troponin: Code(s): R79.89 - Other specified abnormal findings of blood chemistry Status: Acute (11) Memory loss, short term: Code(s): R41.3 - Other amnesia Status: Acute (12) Uncontrolled diabetes mellitus: Qualifiers: Diabetes mellitus type: type 2 Glycemic state: with hyperglycemia Qualified Code(s): E11.65 - Type 2 diabetes mellitus with hyperglycemia Code(s): E11.65 - Type 2 diabetes mellitus with hyperglycemia Status: Acute (13) Autonomic orthostatic hypotension: Code(s): I95.1 - Orthostatic hypotension Status: Acute (14) Unable to care for self: Code(s): Z78.9 - Other specified health status Status: Acute DS: Summary Hospital Course Hospital Course: history of present illness:65-year-old male well-known to the hospital service currently on his 5th admission into the hospital and 4th interaction with the ER department since September who presented to the ER with blood sugar acting up. He told me that he was just not feeling right. He could not provide me much more detail. When I specifically asked he indicated he had some right lower quadrant abdominal pain initially. However this pain is now gone. He has not had any nausea or vomiting. He still adamantly states that he checks his sugars 4 in 5 times a day and takes his home medicines. He states that he has been eating and has had a good appetite. His glucose in the field was 120. The patient had a CT of the abdomen pelvis in the ER that was negative. The patient was conscious when EMS arrived to his home and his glucose was 120.The has been admitted numerous times due to recurrent syncope from orthostatic hypotension, DKA and or hypoglycemia ever since September. During the last several hospitalizations is been noted the patient has moderate to severe short-term memory loss likely indicative of previously undiagnosed dementia. Today the patient is again technically alert oriented to person place and time. However the patient reported to me that he came into the ER not because of diabetic problems but because his neighbor called EMS when she saw him laying on the floor through the window. However EMS did not reports that the patient was unconscious. The patient stated that his blood sugars were low at home however EMS reported the patient had euglycemia in the field. The patient's glucose when he arrived to the
== END 2020-12-07 15:30 | disposition home or self-care (01) ==
LOC: ANHED 12-06 03:58 → ANH2MED 12-06 14:53 → ANHICU 12-09 14:20
PROVIDERS: Emergency Medicine; Admitting Provider Internal Medicine; Emergency Provider Emergency Medicine; PCP Family Medicine; Visit Provider Internal Medicine
DX: E11.649 Type 2 diabetes mellitus with hypoglycemia without coma (principal); N17.9 Acute kidney failure, unspecified; N18.30 Chronic kidney disease, stage 3 unspecified; E87.6 Hypokalemia; I95.1 Orthostatic hypotension; I12.9 Hypertensive chronic kidney disease with stage 1 through stage 4 chronic kidney disease, or unspecified chronic kidney disease; I25.2 Old myocardial infarction; E78.5 Hyperlipidemia, unspecified; R77.8 Other specified abnormalities of plasma proteins; E53.8 Deficiency of other specified B group vitamins; Z79.4 Long term (current) use of insulin
CPT/HCPCS: 36415; 51701; 74177; 80048; 80053; 81001; 82550; 82948; 83605; 83690; 83735; 84484; 85025; 93005; 96365; 96372; 96375; 96376; 97161; 97165; 99285; A9270; G0378; G0379; J1644; J1815; J7042; J7060; Q9967

== ENCOUNTER 2020-12-10 19:38 | Inpatient (IN) | payer MEDICARE, MEDICAID, SELFPAY ==
--- NOTE | ~2020-12-10 | CT_ITS ---
EXAMINATION: CT brain wo con DATE: 12/13/2020 14:36 INDICATION: Head injury. TECHNIQUE: Computed tomography (CT) of the head was performed without intravenous contrast. The mA wa s adjusted according to patient size. Iterative reconstruction technique was employed. The dose-lengt h product was 605.33 mGy-cm. COMPARISON: Head CT 11/29/2020, 09/05/19 FINDINGS: There is agenesis of the corpus callosum. There is chronic white matter volume loss in the temporal parietal occipital regions. There are scattered areas of low attenuation in the cerebral whi te matter. There is an old infarct in right occipital lobe. Colpocephaly is noted. There is mild muco can thickening in the ethmoid sinuses. The mastoid air cells are normal. There is a left frontal scal p hematoma. There are likely changes of ocular lens replacement surgeries. IMPRESSION: 1. Small old infarct in right occipital lobe. 2. Stable mild nonspecific cerebral white matter disease, which likely represents chronic small vesse l ischemic disease. 3. Complete agenesis of the corpus callosum. Reviewed, dictated and finalized at location A. IMPRESSION: 1. Small old infarct in right occipital lobe. 2. Stable mild nonspecific cerebral white matter disease, which likely represen ts chronic small vessel ischemic disease. 3. Complete agenesis of the corpus callosum.
--- NOTE | 2020-12-10 19:36 | ED.RECABL ---
HPI - Recheck/Abnormal Lab/Rx General Chief Complaint: Unspecified Stated Complaint: hyperglycemia Source: patient Mode of arrival: EMS Limitations: no limitations History of Present Illness HPI narrative: Patient is a 65-year-old male with history of hypertension, chronic kidney disease, insulin-dependent diabetes, coronary artery disease, presenting for evaluation of hyperglycemia. Patient rates his blood glucose has been running high this evening. Patient states that he feels weak and has felt general malaise over the past 24 hours. He reports one episode of emesis today. He reports that he was able to have a sub-sandwich today as well as a piece of pizza at dinner. He states he has been pliant with his insulin regimen. He denies fever, chills, cough, chest pain or abdominal pain. He denies dysuria, but reports polydipsia and polyuria. He reports unintentional weight loss of approximately 15 pounds over the past several weeks. Patient called EMS tonight when he checked his blood glucose levels and they were reading as high. Patient was given IV fluids in route. Per chart review, patient has had 6 admissions to the hospital since September. Related Data Home Medications Medication Instructions Recorded Confirmed gabapentin 400 mg PO TID 01/08/19 12/15/20 cyanocobalamin (vitamin B-12) 1,000 mcg PO QAM 12/06/20 12/15/20 clonidine HCl 0.1 mg PO BID 12/11/20 12/15/20 hydrochlorothiazide 25 mg PO DAILY 12/11/20 12/15/20 losartan 100 mg PO DAILY 12/11/20 12/15/20 metformin 1,000 mg PO BID 12/11/20 12/15/20 tamsulosin 0.4 mg PO DAILY 12/11/20 12/15/20 potassium chloride [K-Tab] 20 meq PO DAILY@0800 12/15/20 12/15/20 Allergies Allergy/AdvReac Type Severity Reaction Status Date / Time No Known Allergies Allergy Verified 12/15/20 22:07 Review of Systems Review of Systems: CONSTITUTIONAL: Denies fever, chills, or sweats. EYES: Denies visual changes, redness, or discharge. ENT: Denies rhinorrhea, congestion, sore throat, or otalgia. CARDIOVASCULAR: Denies chest pain, palpitations, or edema. RESPIRATORY: Denies cough or dyspnea. GASTROINTESTINAL: Denies abdominal pain, reports one episode of nausea and vomiting GENITOURINARY: Denies dysuria or hematuria. Reports polyuria, polydipsia SKIN: Denies rash or itching. MUSCULOSKELETAL: Denies back pain, joint pain, or myalgia. NEUROLOGIC: Denies headache, numbness PMF Past Medical History Medical History (Updated 12/16/20 @ 11:07 by Michelle Guillermo MD) Arthritis CAD (coronary artery disease) Negative stress test November 2018 patient's tenter frame back tender is Dr. Kaplan Chronic anemia Chronic kidney disease Stage III 0.9 and 1.4 over the last year Corpus callosum agenesis CVA (cerebral vascular accident) CTA head and neck September 2018: Old infarct in the right occipital lobe and right caudate nucleus Diabetes mellitus Historically uncontrolled with current hemoglobin A1c 9.9 in August 2019. Diabetic retinopathy S/p retinal surgery Diastolic dysfunction Noted on prior echocardiogram but most recent echocardiogram demonstrating hyperdynamic left ventricle with EF greater than 70% with no mention of diastolic dysfunction Essential hypertension History of angina Hyperlipidemia Kidney stones NSTEMI (non-ST elevated myocardial infarction) With chronic troponin elevation Orthostatic hypotension Paroxysmal atrial fibrillation Not on anticoagulation due to high has bled score/high fall risk Peripheral neuropathy Surgical History Surgical History History of cholecystectomy History of loop recorder patient states that it no longer works. Status post cataract extraction of both eyes with insertion of intraocular lens Family History Family History Sibling Hypertension Father Polycystic kidney disease Colon cancer Diabetes mellitus Prostate carcino
[2020-12-10 19:40] VITALS: BP 164/75; PULSE 103; RESP 16; TEMP 37.1; O2SAT 99
--- NOTE | 2020-12-10 19:59 | ECG_ITS ---
Measurements Intervals [place] Rate: 98 P: 58 DE: 193 QRS: 88 QRSD: 106 T: 260 QT: 375 QTc: 480 Interpretive Statements SINUS RHYTHM LEFT VENTRICULAR HYPERTROPHY AND ST-T CHANGE ST-T WAVE ABNORMALITY IN INF/LAT LEADS- CONSIDER ISCHEMIA BASELINE ARTIFACT- II, III, AVR, AVL, AVF, V1, V3-V6 ABNORMAL ECG Electronically Signed On 12-10-2020 21:01:28 CDT by Colin Moreland D.O.
[2020-12-10 20:18] LABS: Glucose Point of Care > 500 mg/dl (65-105)
[2020-12-10] MEDS: SODIUM CHLORIDE 0.9% IV 1,000 ML 999 ML IV CONT ×2 (20:25)
[2020-12-10 20:27] LABS: Alveolar/Arterial O2 Gradient 24.8 mmHg; Base Excess ABG -0.2 mEq/l (+/-2.0); Device ROOM AIR; Fractional Inspired Oxygen 21 %; HCO3 ABG 24.8 mEq/l (22.0-26.0); Methemoglobin ABG 0.3 %THb (0-1.5); Modified Allen's Test Pass; Oxygen Content ABG 15.7 %vol (16.0-22.0); Oxygen Saturation ABG 94.9 % (95.0-100.0); Oxyhemoglobin 93.3 % THb (90.0-100.0); PCO2 ABG 41.9 mmHg (35.0-45.0); PO2 ABG 74.8 mmHg (80.0-100.0); PO2 FiO2 Ratio Arterial Blood 3.56 %; Reduced Hemoglobin 6.4 %THb (0-5.0); Site Drawn RIGHT RADIAL; Total Hemoglobin 11.9 g/dL (12.0-18.0)
[2020-12-10 20:36] LABS: Basophils Percent Auto 0.6 % (0.2-1.2); Eosinophils Absolute Auto 0.1 K/mm3 (0-0.3); Hematocrit 31.8 % (42.0-52.0); Hemoglobin 10.7 g/dL (14.0-18.0); Immature Granulocyte Absolute 0.01 K/mm3 (0.00-0.031); Immature Granulocyte Percent A 0.1 % (0-0.5); Lymphocytes Absolute Auto 1.55 K/mm3 (0.9-3.2); Lymphocytes Percent Auto 23.2 % (18.3-44.2); Mean Corpuscular HGB Conc 33.6 g/dl (32-36); Mean Corpuscular Hemoglobin 31.8 pg (26-34); Mean Corpuscular Volume 94.4 fl (80-100); Mean Platelet Volume 11.2 fl (7.4-10.4); Monocytes Absolute Auto 0.5 K/mm3 (0.1-0.6); Monocytes Percent Auto 6.7 % (2.6-8.5); Neutrophils Absolute Auto 4.6 K/mm3 (1.3-6.7); Neutrophils Percent Auto 68.4 % (45.5-73.1); Platelet Count Result 193 k/mm3 (150-375); Red Blood Count 3.37 M/mm3 (4.6-6.20); Red Cell Distribution Width 14.2 % (11.5-14.5); White Blood Count 6.7 K/mm3 (4.5-10.0)
[2020-12-10 20:53] LABS: Beta-Hydroxybutyrate/Acetoacetate 1.58 mmol/L (0.02-0.27)
[2020-12-10 20:55] LABS: Alanine Aminotransferase 17 U/L (4-50); Albumin Level 3.7 g/dL (3.5-5.1); Alkaline Phosphatase 103 U/L (38-126); Anion Gap 9 mmol/L (8-16); Aspartate Amino Transferase 28 U/L (17-59); Bilirubin,Total 0.6 mg/dL (0.2-1.3); Blood Urea Nitrogen 23 mg/dL (9-20); Calcium 8.4 mg/dL (8.4-10.2); Carbon Dioxide 29 mmol/L (22-30); Chloride 94 mmol/L (98-107); Estimated CRCL calculation 65 ml/min; Estimated Glomerular Filt Rate > 60; Glucose 527 mg/dL (65-110); Magnesium 1.5 mg/dL (1.6-2.3); Phosphorus 4.1 mg/dL (2.5-4.5); Potassium 4.2 mmol/L (3.4-5.0); Sodium 132 mmol/L (137-145)
[2020-12-10 21:13] LABS: Troponin I 0.048 ng/mL (0.000-0.034)
[2020-12-10] MEDS: MAGNESIUM SULF 1 GM/D5W 100 ML 1 GM/100 ML BAG IVPB (22:16)
[2020-12-10 22:17] VITALS: BP 186/86; PULSE 97; RESP 14; O2SAT 99
[2020-12-10 22:42] VITALS: BP 188/98; PULSE 99; RESP 19; O2SAT 100
[2020-12-10 22:56] LABS: Glucose Point of Care 419 mg/dl (65-105)
[2020-12-10 23:04] LABS: Add Urine Microscopic? YES; Appearance Urine Clear (Clear); Bacteria Urine Trace /hpf; Bilirubin Urine Negative (Negative); Blood Urine Negative (Negative); Color Urine Colorless (Yellow); Glucose Urine UA 3+ mg/dL (Negative); Ketones Urine 1+ mg/dL (Negative); Leukocyte Esterase Ur Negative LEU/UL (Negative); Nitrate Urine Negative (Negative); Protein Urine 2+ mg/dL (Negative); RBC Urine 0-2 /hpf (0-2); Specific Grav Ur 1.018 (1.001-1.035); Urobilinogen Urine Negative mg/dL (<2.0); WBC Urine 0-3 /hpf
[2020-12-10 23:50] VITALS: BP 188/98; PULSE 106; RESP 18; O2SAT 98
[2020-12-11] VITALS (8 sets, daily range): BP systolic 107–168; BP diastolic 52–86; PULSE 85–110; RESP 16–18; TEMP 36.2–37.1; O2SAT 96–99; BMI 27.1
[2020-12-11 00:42] LABS: Troponin I 0.049 ng/mL (0.000-0.034)
[2020-12-11 02:37] LABS: Glucose Point of Care 484 mg/dl (65-105)
--- NOTE | 2020-12-11 04:15 | ADMGEN ---
This patient, Jorge Alberto Cortze, was admitted to Medical Room 346-. Patient/family oriented to hospital policies and general routines including ID bracelet, bed and alarms, visiting hours, pain management, procedures, bathroom and other care routines, personal items, smoking policy, room service/diet, and visiting hours. Information on how to activate the Rapid Response Team has been discussed. Patient/Family are encouraged to report perceived risks to care and to ask questions if they do not understand what they are told or what they should do.
--- NOTE | 2020-12-11 04:25 | PC.NURSE ---
ns il & 7 units of insulin regular.ivp
[2020-12-11 04:35] LABS: Glucose Point of Care 356 mg/dl (65-105)
[2020-12-11] MEDS: SODIUM CHLORIDE 0.9% IV 1,000 ML 100 ML IV CONT ×2 (05:21→16:39)
[2020-12-11 07:01] LABS: Basophils Absolute Auto 0.1 K/mm3 (0.0-0.1); Basophils Percent Auto 0.7 % (0.2-1.2); Eosinophils Absolute Auto 0.1 K/mm3 (0-0.3); Eosinophils Percent Auto 1.8 % (0-4.4); Hematocrit 33.4 % (42.0-52.0); Hemoglobin 11.3 g/dL (14.0-18.0); Immature Granulocyte Absolute 0.01 K/mm3 (0.00-0.031); Immature Granulocyte Percent A 0.1 % (0-0.5); Lymphocytes Absolute Auto 2.53 K/mm3 (0.9-3.2); Lymphocytes Percent Auto 37.9 % (18.3-44.2); Mean Corpuscular HGB Conc 33.8 g/dl (32-36); Mean Corpuscular Hemoglobin 31.1 pg (26-34); Mean Platelet Volume 11.2 fl (7.4-10.4); Monocytes Absolute Auto 0.4 K/mm3 (0.1-0.6); Monocytes Percent Auto 6.4 % (2.6-8.5); Neutrophils Absolute Auto 3.5 K/mm3 (1.3-6.7); Neutrophils Percent Auto 53.1 % (45.5-73.1); Platelet Count Result 208 k/mm3 (150-375); Red Blood Count 3.63 M/mm3 (4.6-6.20); Red Cell Distribution Width 13.6 % (11.5-14.5); White Blood Count 6.7 K/mm3 (4.5-10.0)
[2020-12-11 08:13] LABS: Glucose Point of Care 288 mg/dl (65-105)
--- NOTE | 2020-12-11 08:29 | PM.IMHP ---
H&P: HPI History of Present Illness Date/Time: 12/11/20 08:29 Patient is a 65-year-old gentleman well known from our facility where he is currently being admitted or the 7th time since September. He carries a history of hypertension, chronic kidney disease, insulin-dependent diabetes, coronary artery disease, and originally presented for evaluation and management of hyperglycemia. Patient rates his blood glucose has been running high last evening. Patient states that he feels weak and has felt general malaise over the past 24 hours. He reports one episode of emesis today. He reports that he was able to have a sub-sandwich today as well as a piece of pizza at dinner. He states he has been pliant with his insulin regimen. He denies fever, chills, cough, chest pain or abdominal pain. He denies dysuria, but reports polydipsia and polyuria. He reports unintentional weight loss of approximately 15 pounds over the past several weeks. Patient called EMS tonight when he checked his blood glucose levels and they were reading as high. Patient was given IV fluids in route. On admission the patient wasa hemodynamically stable with the following vital signs: Temp 97.5F, HR 99, R 19, Pulse oxymetry 100, BP 188/98 with a MAP of 128. He was admitted with a status of observation. He was given a bolus of 1 liter of normal saline followed by normal saline at 100ccs per hour. His home regimen including insulin NPH 7 units BID and glargine 30 units and 18 units BID was restarted with insulin sliding scale coverage. Labs were reviewed. His CBC shows a wbc of 6.7, an Hb of 11.3 and hematocrite of 33.4 and a platelet count of 208. His chemistry revealed a blood sugar of 527, a serum sodium of 132, a potassium of 4.2, a serum bicarbonate of 29, a gap of 9, a magnesium of 1.5 and a beta hydroxybutyrate of 1.58. There is mild troponin elevation at 0.049; they have remained flat. Chief Complaint: Elevated blood sugars. Review of Systems Review of Systems: All systems reviewed & are unremarkable except as noted in HPI and below Constitutional: Constitutional: Reports no additional constitutional complaints Eyes: Eyes: Reports no additional eye complaints ENT: Reports system reviewed and no additional complaints, except as documented Cardiovascular: Cardiovascular: Reports no additional cardiovascular complaints Respiratory: Respiratory: Reports no additional respiratory complaints Gastrointestinal: Gastrointestinal: Reports no additional gastrointestinal complaints Genitourinary: Genitourinary: Reports no additional male genitourinary complaints Musculoskeletal: Musculoskeletal: Reports no additional musculoskeletal complaints Integumentary/Breasts: Skin/Breast: Reports system reviewed and no additional complaints, except as docu Psychiatric: Psychiatric: Reports no additional psychiatric complaints [facility] Past Medical History Medical History Arthritis CAD (coronary artery disease) Negative stress test November 2018 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 Diabetic nephropathy Diabetic retinopathy S/p retinal surgery Diastolic dysfunction Noted on prior echocardiogram but most recent echocardiogram demonstrating hyperdynamic left ventricle with EF greater than 70% with no mention of diastolic dysfunction Essential hypertension History of angina Hyperlipidemia Kidney stones NSTEMI (non-ST elevated myocardial infarction) With chronic troponin elevation Orthostatic hypotension Paroxysmal atrial fibrillation Not on anticoagulation due to high has bled score/high fall risk Peripheral neuropathy Surgical Histor
[2020-12-11 08:57] LABS: Alanine Aminotransferase 16 U/L (4-50); Albumin Level 3.4 g/dL (3.5-5.1); Alkaline Phosphatase 111 U/L (38-126); Anion Gap 8 mmol/L (8-16); Aspartate Amino Transferase 23 U/L (17-59); Bilirubin,Total 0.3 mg/dL (0.2-1.3); Blood Urea Nitrogen 18 mg/dL (9-20); Calcium 8.2 mg/dL (8.4-10.2); Carbon Dioxide 28 mmol/L (22-30); Chloride 102 mmol/L (98-107); Estimated CRCL calculation 86 ml/min; Estimated Glomerular Filt Rate > 60; Glucose 348 mg/dL (65-110); Potassium 3.6 mmol/L (3.4-5.0); Sodium 138 mmol/L (137-145)
[2020-12-11] MEDS: TAMSULOSIN HCL 0.4 MG CAPSULE PO (09:42)
[2020-12-11] MEDS: ASPIRIN 81 MG ENTERIC TABLET PO (09:42)
[2020-12-11] MEDS: METOPROLOL TARTRATE 12.5 MG TABLET PO (09:42)
[2020-12-11] MEDS: LOSARTAN POTASSIUM 100 MG TABLET PO (09:42)
[2020-12-11] MEDS: GABAPENTIN 400 MG CAPSULE PO ×3 (09:42→16:44)
[2020-12-11] MEDS: hydroCHLOROthiazide 25 MG TABLET PO (09:43)
[2020-12-11] MEDS: cloNIDine HCL 0.1 MG TABLET PO ×2 (09:43→20:34)
[2020-12-11] MEDS: metFORMIN HCL 500 MG TABLET 1000 MG PO ×2 (09:43→16:45)
[2020-12-11] MEDS: CYANOCOBALAMIN 1,000 MCG TABLET 1000 MCG PO (09:43)
[2020-12-11] MEDS: ENOXAPARIN 40 MG/0.4 ML SYRINGE SUB-Q (09:43)
[2020-12-11] MEDS: POTASSIUM CHLORIDE 20 MEQ TABLET.ER PO (09:43)
[2020-12-11] MEDS: MAGNESIUM OXIDE 400 MG TABLET PO (09:44)
[2020-12-11] MEDS: INSULIN HUMAN NPH (*BKC) 100 UNITS/ML 7 UNITS SUB-Q (09:48)
[2020-12-11] MEDS: INSULIN GLARGINE (*BKC) 100 UNITS/ML 30 UNITS SUB-Q (09:49)
[2020-12-11 11:53] LABS: Glucose Point of Care 265 mg/dl (65-105)
[2020-12-11] MEDS: INSULIN ASPART (*BKC) 100 UNITS/ML 20 UNITS SUB-Q ×2 (12:15→16:41)
[2020-12-11] MEDS: INSULIN ASPART (*BKC) 100 UNITS/ML SUB-Q (12:16)
[2020-12-11 15:00] LABS: Glucose Point of Care 70 mg/dl (65-105)
[2020-12-11 15:00] LABS: Glucose Point of Care 74 mg/dl (65-105)
[2020-12-11 16:42] LABS: Glucose Point of Care 151 mg/dl (65-105)
[2020-12-11] MEDS: SERTRALINE HCL 25 MG TABLET PO (20:34)
[2020-12-11] MEDS: ATORVASTATIN 40 MG TABLET PO (20:34)
[2020-12-11 21:16] LABS: Glucose Point of Care 60 mg/dl (65-105)
[2020-12-11 21:16] LABS: Glucose Point of Care 105 mg/dl (65-105)
[2020-12-11 22:55] LABS: Glucose Point of Care 141 mg/dl (65-105)
[2020-12-11] MEDS: INSULIN GLARGINE (*BKC) 100 UNITS/ML 10 UNITS SUB-Q (23:16)
[2020-12-12] VITALS (11 sets, daily range): BP systolic 123–158; BP diastolic 59–86; PULSE 65–90; RESP 16–20; TEMP 36.4–37.3; O2SAT 96–99
[2020-12-12] MEDS: SODIUM CHLORIDE 0.9% IV 1,000 ML 100 ML IV CONT ×3 (01:36→23:21)
[2020-12-12 06:41] LABS: Anion Gap -1 mmol/L (8-16); Blood Urea Nitrogen 17 mg/dL (9-20); Calcium 8.1 mg/dL (8.4-10.2); Carbon Dioxide 31 mmol/L (22-30); Chloride 106 mmol/L (98-107); Estimated CRCL calculation 78 ml/min; Estimated Glomerular Filt Rate > 60; Glucose 178 mg/dL (65-110); Potassium 3.2 mmol/L (3.4-5.0); Sodium 136 mmol/L (137-145)
[2020-12-12] MEDS: TAMSULOSIN HCL 0.4 MG CAPSULE PO (08:33)
[2020-12-12] MEDS: ASPIRIN 81 MG ENTERIC TABLET PO (08:33)
[2020-12-12] MEDS: POTASSIUM CHLORIDE 20 MEQ TABLET.ER PO (08:33)
[2020-12-12] MEDS: cloNIDine HCL 0.1 MG TABLET PO ×2 (08:33→20:38)
[2020-12-12] MEDS: GABAPENTIN 400 MG CAPSULE PO ×3 (08:33→17:05)
[2020-12-12] MEDS: MAGNESIUM OXIDE 400 MG TABLET PO (08:34)
[2020-12-12] MEDS: LOSARTAN POTASSIUM 100 MG TABLET PO (08:34)
[2020-12-12] MEDS: METOPROLOL TARTRATE 12.5 MG TABLET PO (08:34)
[2020-12-12] MEDS: metFORMIN HCL 500 MG TABLET 1000 MG PO ×2 (08:34→17:05)
[2020-12-12] MEDS: hydroCHLOROthiazide 25 MG TABLET PO (08:34)
[2020-12-12] MEDS: ENOXAPARIN 40 MG/0.4 ML SYRINGE SUB-Q (08:34)
[2020-12-12] MEDS: CYANOCOBALAMIN 1,000 MCG TABLET 1000 MCG PO (08:34)
[2020-12-12] MEDS: INSULIN ASPART (*BKC) 100 UNITS/ML 20 UNITS SUB-Q (08:35)
[2020-12-12] MEDS: INSULIN GLARGINE (*BKC) 100 UNITS/ML 30 UNITS SUB-Q (08:44)
[2020-12-12 08:48] LABS: Glucose Point of Care 167 mg/dl (65-105)
[2020-12-12 12:00] LABS: Glucose Point of Care 64 mg/dl (65-105)
--- NOTE | 2020-12-12 14:47 | PM.IMPN ---
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 Hypoglycemia at 68 despite having a normal intake at lunch today. Insulin held for lunch and was decreased from 20 to 15. This is the 7th admission since September. Patient appears to improved with reinstatement of his regular home regimen. Monitor accu-checks. Fasting blood sugar 178. Accuchecks in the 64-167 range. (2) Syncope and collapse: Code(s): R55 - Syncope and collapse Status: Acute (3) Acute on chronic kidney failure: Qualifiers: Acute renal failure type: unspecified Chronic kidney disease stage: unspecified stage Qualified Code(s): N17.9 - Acute kidney failure, unspecified; N18.9 - Chronic kidney disease, unspecified Code(s): N17.9 - Acute kidney failure, unspecified; N18.9 - Chronic kidney disease, unspecified Status: Acute Assessment and Plan: resolved (4) Elevated troponin: Code(s): R79.89 - Other specified abnormal findings of blood chemistry Status: Acute Assessment and Plan: No significant trend upward. Likely type 2 ischemia in the setting of acute ilness. (5) Autonomic orthostatic hypotension: Code(s): I95.1 - Orthostatic hypotension Status: Acute Assessment and Plan: Monitor BP; current BP 123/71. Subjective Date/time seen: 12/12/20 10:47 S: Review of Systems Review of Systems: All systems reviewed & are unremarkable except as noted in HPI and below Constitutional: Constitutional: Reports no additional constitutional complaints Eyes: Eyes: Reports no additional eye complaints ENT: Reports system reviewed and no additional complaints, except as documented Cardiovascular: Cardiovascular: Reports no additional cardiovascular complaints Respiratory: Respiratory: Reports no additional respiratory complaints Gastrointestinal: Gastrointestinal: Reports no additional gastrointestinal complaints Genitourinary: Genitourinary: Reports no additional male genitourinary complaints Musculoskeletal: Musculoskeletal: Reports no additional musculoskeletal complaints Integumentary/Breasts: Skin/Breast: Reports system reviewed and no additional complaints, except as docu Psychiatric: Psychiatric: Reports no additional psychiatric complaints Exam Const: General: no acute distress HENMT: Mouth: Yes moist mucous membranes Eyes: General: appearance normal, both eyes and all related structures Neck: Neck: no JVD Resp: Effort & Inspection: normal respiratory effort Auscultation: clear to auscultation bilaterally, no crackles, no rales, no rhonchi and no wheezes Cardio: Rate: regular rate and not bradycardic Rhythm: regular rhythm Heart sounds: no gallops, no murmurs and no rubs GI: Inspection: non-distended Auscultation: normal bowel sounds : Other: Deferred. Skin: General skin exam: normal color and no rashes or lesions noted Neuro: Cognition (Neuro): abnormal cognition Speech: normal speech Motor exam (neuro): 5/5 motor strength present throughout Sensory Exam: normal sensation Extrem: General: normal to inspection Psych: Mental Status: mental status grossly normal Affect: normal affect Objective Data Vital Signs Vital Signs: Vital Signs - 24 hr 12/11/20 15:09 12/11/20 20:00 12/12/20 00:00 Temperature
[2020-12-12 16:29] LABS: Glucose Point of Care 106 mg/dl (65-105)
[2020-12-12] MEDS: ATORVASTATIN 40 MG TABLET PO (20:38)
[2020-12-12] MEDS: SERTRALINE HCL 25 MG TABLET PO (20:38)
[2020-12-12] MEDS: INSULIN GLARGINE (*BKC) 100 UNITS/ML 18 UNITS SUB-Q (20:40)
[2020-12-12 20:52] LABS: Glucose Point of Care 129 mg/dl (65-105)
[2020-12-13] VITALS (8 sets, daily range): BP systolic 112–169; BP diastolic 44–83; PULSE 73–91; RESP 12–20; TEMP 36–36.9; O2SAT 95–100
[2020-12-13 08:38] LABS: Glucose Point of Care 120 mg/dl (65-105)
[2020-12-13] MEDS: SODIUM CHLORIDE 0.9% IV 1,000 ML 100 ML IV CONT ×2 (10:13→20:32)
[2020-12-13] MEDS: INSULIN GLARGINE (*BKC) 100 UNITS/ML 30 UNITS SUB-Q (10:14)
[2020-12-13] MEDS: TAMSULOSIN HCL 0.4 MG CAPSULE PO (10:15)
[2020-12-13] MEDS: POTASSIUM CHLORIDE 20 MEQ TABLET.ER PO (10:15)
[2020-12-13] MEDS: ASPIRIN 81 MG ENTERIC TABLET PO (10:15)
[2020-12-13] MEDS: LOSARTAN POTASSIUM 100 MG TABLET PO (10:16)
[2020-12-13] MEDS: GABAPENTIN 400 MG CAPSULE PO ×3 (10:16→17:41)
[2020-12-13] MEDS: METOPROLOL TARTRATE 12.5 MG TABLET PO (10:16)
[2020-12-13] MEDS: hydroCHLOROthiazide 25 MG TABLET PO (10:17)
[2020-12-13] MEDS: cloNIDine HCL 0.1 MG TABLET PO ×2 (10:17→20:31)
[2020-12-13] MEDS: CYANOCOBALAMIN 1,000 MCG TABLET 1000 MCG PO (10:17)
[2020-12-13] MEDS: metFORMIN HCL 500 MG TABLET 1000 MG PO ×2 (10:17→17:40)
[2020-12-13] MEDS: ENOXAPARIN 40 MG/0.4 ML SYRINGE SUB-Q (10:18)
[2020-12-13] MEDS: MAGNESIUM OXIDE 400 MG TABLET PO (10:18)
[2020-12-13 12:05] LABS: Glucose Point of Care 226 mg/dl (65-105)
[2020-12-13] MEDS: INSULIN ASPART (*BKC) 100 UNITS/ML 8 UNITS SUB-Q (12:51)
--- NOTE | 2020-12-13 17:10 | PM.IMPN ---
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 Hypoglycemia at 68 despite having a normal intake at lunch today. Insulin held for lunch and was decreased from 20 to 15. This is the 7th admission since September. Patient appears to improved with reinstatement of his regular home regimen. Monitor accu-checks. Fasting blood sugar 178. Accuchecks in the 64-167 range. (2) Syncope and collapse: Code(s): R55 - Syncope and collapse Status: Acute (3) Acute on chronic kidney failure: Qualifiers: Acute renal failure type: unspecified Chronic kidney disease stage: unspecified stage Qualified Code(s): N17.9 - Acute kidney failure, unspecified; N18.9 - Chronic kidney disease, unspecified Code(s): N17.9 - Acute kidney failure, unspecified; N18.9 - Chronic kidney disease, unspecified Status: Acute Assessment and Plan: resolved (4) Elevated troponin: Code(s): R79.89 - Other specified abnormal findings of blood chemistry Status: Acute Assessment and Plan: No significant trend upward. Likely type 2 ischemia in the setting of acute ilness. (5) Autonomic orthostatic hypotension: Code(s): I95.1 - Orthostatic hypotension Status: Acute Assessment and Plan: Monitor BP; current BP 123/71. (6) Fall: Qualifiers: Encounter type: initial encounter Qualified Code(s): W19.XXXA - Unspecified fall, initial encounter Code(s): W19.XXXA - Unspecified fall, initial encounter Status: Acute Assessment and Plan: This has been a recurrent issue at home. Patient fell from sitting on the toilet. No obvious deficits. Ct scan of brain without acute findings. Patient is being discharged home with home health aid. Subjective Date/time seen: 12/13/20 10:10 Patient is examined at the bedside. He had an unwitnessed fall while sitting on the bathroom. No complaints. Review of Systems Review of Systems: All systems reviewed & are unremarkable except as noted in HPI and below Constitutional: Constitutional: Reports no additional constitutional complaints Eyes: Eyes: Reports no additional eye complaints ENT: Reports system reviewed and no additional complaints, except as documented Cardiovascular: Cardiovascular: Reports no additional cardiovascular complaints Respiratory: Respiratory: Reports no additional respiratory complaints Gastrointestinal: Gastrointestinal: Reports no additional gastrointestinal complaints Genitourinary: Genitourinary: Reports no additional male genitourinary complaints Musculoskeletal: Musculoskeletal: Reports no additional musculoskeletal complaints Integumentary/Breasts: Skin/Breast: Reports system reviewed and no additional complaints, except as docu Psychiatric: Psychiatric: Reports no additional psychiatric complaints Exam Const: General: no acute distress HENMT: Mouth: Yes moist mucous membranes Other: Left frontal soft tissue swelling. Eyes: General: appearance normal, both eyes and all related structures Neck: Neck: no JVD Resp: Effort & Inspection: normal respiratory effort Auscultation: clear to auscultation bilaterally, no crackles, no rales, no rhonchi and no wheezes Cardio: Rate: regular rate and not bradycardic Rhythm: regular rhythm Heart sounds: no gall
[2020-12-13 17:59] LABS: Glucose Point of Care 156 mg/dl (65-105)
[2020-12-13] MEDS: ATORVASTATIN 40 MG TABLET PO (20:31)
[2020-12-13] MEDS: SERTRALINE HCL 25 MG TABLET PO (20:31)
[2020-12-13] MEDS: INSULIN GLARGINE (*BKC) 100 UNITS/ML 18 UNITS SUB-Q (20:35)
[2020-12-13 20:47] LABS: Glucose Point of Care 177 mg/dl (65-105)
[2020-12-13 21:09] LABS: Glucose Point of Care 128 mg/dl (65-105)
[2020-12-14 05:56] VITALS: BP 168/78; PULSE 89; RESP 14; TEMP 36.6; O2SAT 97
[2020-12-14 06:21] LABS: Hematocrit 33.5 % (42.0-52.0); Hemoglobin 11.3 g/dL (14.0-18.0); Mean Corpuscular HGB Conc 33.7 g/dl (32-36); Mean Corpuscular Hemoglobin 31.8 pg (26-34); Mean Corpuscular Volume 94.4 fl (80-100); Mean Platelet Volume 10.7 fl (7.4-10.4); Platelet Count Result 188 k/mm3 (150-375); Red Blood Count 3.55 M/mm3 (4.6-6.20); Red Cell Distribution Width 14.2 % (11.5-14.5); White Blood Count 6.5 K/mm3 (4.5-10.0)
[2020-12-14 06:33] LABS: Anion Gap 5 mmol/L (8-16); Blood Urea Nitrogen 12 mg/dL (9-20); Calcium 8.4 mg/dL (8.4-10.2); Carbon Dioxide 32 mmol/L (22-30); Chloride 103 mmol/L (98-107); Estimated CRCL calculation 78 ml/min; Estimated Glomerular Filt Rate > 60; Glucose 170 mg/dL (65-110); Potassium 3.4 mmol/L (3.4-5.0); Sodium 140 mmol/L (137-145)
[2020-12-14] MEDS: SODIUM CHLORIDE 0.9% IV 1,000 ML 100 ML IV CONT (06:36)
[2020-12-14 07:55] LABS: Glucose Point of Care 139 mg/dl (65-105)
[2020-12-14 08:20] VITALS: PULSE 89
[2020-12-14] MEDS: cloNIDine HCL 0.1 MG TABLET PO (08:20)
[2020-12-14] MEDS: GABAPENTIN 400 MG CAPSULE PO (08:20)
[2020-12-14] MEDS: hydroCHLOROthiazide 25 MG TABLET PO (08:20)
[2020-12-14] MEDS: ASPIRIN 81 MG ENTERIC TABLET PO (08:20)
[2020-12-14] MEDS: metFORMIN HCL 500 MG TABLET 1000 MG PO (08:20)
[2020-12-14] MEDS: METOPROLOL TARTRATE 12.5 MG TABLET PO (08:20)
[2020-12-14] MEDS: POTASSIUM CHLORIDE 20 MEQ TABLET.ER PO (08:20)
[2020-12-14] MEDS: LOSARTAN POTASSIUM 100 MG TABLET PO (08:20)
[2020-12-14] MEDS: TAMSULOSIN HCL 0.4 MG CAPSULE PO (08:20)
[2020-12-14] MEDS: MAGNESIUM OXIDE 400 MG TABLET PO (08:20)
[2020-12-14] MEDS: POTASSIUM CHLORIDE 20 MEQ PACKET (FOR LIQUID) 40 MEQ PO (08:21)
[2020-12-14] MEDS: ENOXAPARIN 40 MG/0.4 ML SYRINGE SUB-Q (08:21)
[2020-12-14] MEDS: CYANOCOBALAMIN 1,000 MCG TABLET 1000 MCG PO (08:21)
[2020-12-14] MEDS: INSULIN GLARGINE (*BKC) 100 UNITS/ML 30 UNITS SUB-Q (08:22)
[2020-12-14] MEDS: INSULIN ASPART (*BKC) 100 UNITS/ML 8 UNITS SUB-Q ×2 (08:22→12:08)
[2020-12-14 11:54] LABS: Glucose Point of Care 158 mg/dl (65-105)
--- NOTE | 2020-12-14 12:57 | PM.DS ---
DS: Admitting Diagnosis Discharge Date 12/14/2020 Admitting Diagnosis Uncontrolled diabetes without DKA DS: Discharge Diagnosis Discharge Diagnosis (1) Acute non-ST elevation myocardial infarction (NSTEMI): Code(s): I21.4 - Non-ST elevation (NSTEMI) myocardial infarction Status: Acute Assessment and Plan: Patient never experienced chest pain. Troponin remained flat. Likely secondary to demand mismatch, type-2 OR (2) Paroxysmal atrial fibrillation: Code(s): I48.0 - Paroxysmal atrial fibrillation Status: Chronic Assessment and Plan: Patient was in sinus rhythm (3) Acute on chronic kidney failure: Qualifiers: Acute renal failure type: unspecified Chronic kidney disease stage: unspecified stage Qualified Code(s): N17.9 - Acute kidney failure, unspecified; N18.9 - Chronic kidney disease, unspecified Code(s): N17.9 - Acute kidney failure, unspecified; N18.9 - Chronic kidney disease, unspecified Status: Acute Assessment and Plan: Recent ANDREW, resolved. Creatine stable 1-1.2 throughout this admission. (4) Severe hyperglycemia due to diabetes mellitus: Code(s): E11.65 - Type 2 diabetes mellitus with hyperglycemia Status: Acute (5) DKA (diabetic ketoacidosis): Qualifiers: Diabetes mellitus complication detail: without coma Diabetes mellitus type: other specified (including SHILA) Qualified Code(s): E13.10 - Other specified diabetes mellitus with ketoacidosis without coma Code(s): E11.10 - Type 2 diabetes mellitus with ketoacidosis without coma Status: Acute Assessment and Plan: Patient admitted with uncontrolled diabetes. HE was never acidotic. He has improved with restorationism of home insulin regimen. On day 2 of admission the patient experienced marginal hypoglycemic episodes with accucheck in the 60-74 range. His mealtime insulin doses were held. Long acting insulin was continued at home doses. His discharged on lower mealtime insulin doses from 20 units decreased to 5 units. (6) Chronic anemia: Code(s): D64.9 - Anemia, unspecified Status: Chronic Assessment and Plan: Moderate and well tolerated in the 10.7-11.3 range. (7) Syncope and collapse: Code(s): R55 - Syncope and collapse Status: Acute (8) H/O: HTN (hypertension): Code(s): Z86.79 - Personal history of other diseases of the circulatory system Status: Chronic (9) Acute renal failure: Code(s): N17.9 - Acute kidney failure, unspecified Status: Acute DS: Summary Hospital Course Reason for hospitalization: elevated blood sugars Hospital Course: Patient is a 65-year-old gentleman well known from our facility where he is currently being admitted or the 7th time since September. He carries a past medical history of hypertension, chronic kidney disease, insulin-dependent diabetes, coronary artery disease, and originally presented for evaluation and management of hyperglycemia. Patient rates his blood glucose has been running high cassie the day prior to presentation. Patient states that he feels weak and has felt general malaise over the past 24 hours. He reports one episode of emesis prior to admission. Patient called EMS tonight when he checked his blood glucose levels and they were reading as high. Patient was given IV fluids en route. On admission the patient was hemodynamically stable with the following vital signs: Temp 97.5F, HR 99, R 19, Pulse oximetry 100, BP 188/98 with a MAP of 128. He was admitted with a status of observation. He was given a bolus of 1 liter of normal saline followed by normal saline at 100ccs per hour. His home regimen including glargine 30 units and 18 units BID was restarted with insulin sliding scale coverage. Labs were reviewed. His CBC shows a wbc of 6.7, an Hb of 11.3 and hematocrite of 33.4 and a platelet count of 208. His chemistry revealed a blood sugar of 527, a serum sodium of 132, a
== END 2020-12-14 13:55 | disposition home health service (06) | DRG 637 ==
LOC: ANHED 19:48 → ANH3MED 12-11 04:57
PROVIDERS: Admitting Provider Internal Medicine; Emergency Provider Emergency Medicine; PCP Family Medicine; Visit Provider Internal Medicine
DX: E11.10 Type 2 diabetes mellitus with ketoacidosis without coma (principal); I21.A1 Myocardial infarction type 2; N17.9 Acute kidney failure, unspecified; E11.65 Type 2 diabetes mellitus with hyperglycemia; I48.0 Paroxysmal atrial fibrillation; D64.9 Anemia, unspecified; E11.319 Type 2 diabetes mellitus with unspecified diabetic retinopathy without macular edema; I12.9 Hypertensive chronic kidney disease with stage 1 through stage 4 chronic kidney disease, or unspecified chronic kidney disease; E11.22 Type 2 diabetes mellitus with diabetic chronic kidney disease; N18.30 Chronic kidney disease, stage 3 unspecified; I25.10 Atherosclerotic heart disease of native coronary artery without angina pectoris; E11.42 Type 2 diabetes mellitus with diabetic polyneuropathy; E11.21 Type 2 diabetes mellitus with diabetic nephropathy; I95.1 Orthostatic hypotension; M19.90 Unspecified osteoarthritis, unspecified site; W19.XXXA Unspecified fall, initial encounter; Z79.4 Long term (current) use of insulin; I25.2 Old myocardial infarction; Z86.73 Personal history of transient ischemic attack (TIA), and cerebral infarction without residual deficits; Z98.42 Cataract extraction status, left eye; Z98.41 Cataract extraction status, right eye
CPT/HCPCS: 36415; 36600; 70450; 80048; 80053; 81001; 82010; 82375; 82805; 82948; 83050; 83735; 84100; 84484; 85025; 85027; 93005; 96361; 96365; 96366; 96372; 99285; A9270; G0378; J1650; J1815; J3475; J7030

== ENCOUNTER 2020-12-15 12:08 | Inpatient (IN) | payer MEDICARE, MEDICAID, SELFPAY ==
[2020-12-15] VITALS (12 sets, daily range): BP systolic 98–180; BP diastolic 53–92; PULSE 81–118; RESP 14–15; TEMP 36.6; O2SAT 97–100
--- NOTE | 2020-12-15 13:31 | ECG_ITS ---
Measurements Intervals [place] Rate: 87 P: 47 TN: 160 QRS: 80 QRSD: 110 T: 212 QT: 401 QTc: 483 Interpretive Statements SINUS RHYTHM ATRIAL PREMATURE COMPLEX LEFT VENTRICULAR HYPERTROPHY WITH ST-T CHANGE ST-T WAVE ABNORMALITY IN DIFFUSE LEADS- CONSIDER ISCHEMIA BASELINE ARTIFACT- II, V1, V3-V6 ABNORMAL ECG Electronically Signed On 12-15-2020 14:10:59 CDT by Colin Moreland D.O.
[2020-12-15 13:43] LABS: Basophils Absolute Auto 0.1 K/mm3 (0.0-0.1); Basophils Percent Auto 0.8 % (0.2-1.2); Eosinophils Absolute Auto 0.1 K/mm3 (0-0.3); Eosinophils Percent Auto 2.3 % (0-4.4); Hematocrit 35.6 % (42.0-52.0); Hemoglobin 11.9 g/dL (14.0-18.0); Immature Granulocyte Absolute 0.03 K/mm3 (0.00-0.031); Immature Granulocyte Percent A 0.5 % (0-0.5); Lymphocytes Absolute Auto 1.57 K/mm3 (0.9-3.2); Lymphocytes Percent Auto 25.7 % (18.3-44.2); Mean Corpuscular HGB Conc 33.4 g/dl (32-36); Mean Corpuscular Hemoglobin 31.8 pg (26-34); Mean Corpuscular Volume 95.2 fl (80-100); Mean Platelet Volume 11.5 fl (7.4-10.4); Monocytes Absolute Auto 0.4 K/mm3 (0.1-0.6); Monocytes Percent Auto 6.7 % (2.6-8.5); Neutrophils Absolute Auto 3.9 K/mm3 (1.3-6.7); Platelet Count Result 194 k/mm3 (150-375); Red Blood Count 3.74 M/mm3 (4.6-6.20); Red Cell Distribution Width 14.6 % (11.5-14.5); White Blood Count 6.1 K/mm3 (4.5-10.0)
[2020-12-15 14:06] LABS: Anion Gap 9 mmol/L (8-16); Blood Urea Nitrogen 16 mg/dL (9-20); Calcium 9.1 mg/dL (8.4-10.2); Carbon Dioxide 30 mmol/L (22-30); Chloride 99 mmol/L (98-107); Estimated CRCL calculation 78 ml/min; Estimated Glomerular Filt Rate > 60; Glucose 199 mg/dL (65-110); Potassium 4.4 mmol/L (3.4-5.0); Sodium 138 mmol/L (137-145)
--- NOTE | 2020-12-15 14:43 | ED.DIZZY ---
HPI - Dizziness General Chief Complaint: Dizziness Stated Complaint: LOW BP Source: patient, EMS and RN notes reviewed Mode of arrival: EMS Limitations: no limitations History of Present Illness HPI Narrative: Patient is 65 years old white male brought to the emergency room by ambulance because of low blood pressure and syncope. Patient took his blood pressure medications, clonidine 0.1, Toprol 12.5, hydrochlorothiazide 25, losartan 100 mg, 20 minutes later patient stood up to answer the door, then collapsed to the floor. Unresponsive, home visiting nurse was at the scene at the time of collapse, reported blood pressure 60/40, called 911, ambulance blood pressure was 120/68. Currently patient is asymptomatic denying any headache, dizziness, neck injury, chest pain, shortness of breath, palpitation. Patient is hungry patient is telling me that he had similar symptoms 2 days ago and was discharged from our hospital yesterday. Patient denies any focal neuro deficit Related Data Home Medications Medication Instructions Recorded Confirmed gabapentin 400 mg PO TID 01/08/19 12/11/20 cyanocobalamin (vitamin B-12) 1,000 mcg PO QAM 12/06/20 12/11/20 clonidine HCl 0.1 mg PO BID 12/11/20 12/11/20 hydrochlorothiazide 25 mg PO DAILY 12/11/20 12/11/20 losartan 100 mg PO DAILY 12/11/20 12/11/20 metformin 1,000 mg PO BID 12/11/20 12/11/20 tamsulosin 0.4 mg PO DAILY 12/11/20 12/11/20 potassium chloride [K-Tab] 20 meq PO DAILY@0800 12/15/20 Allergies Allergy/AdvReac Type Severity Reaction Status Date / Time No Known Allergies Allergy Verified 12/15/20 13:42 Review of Systems Review of Systems: CONSTITUTIONAL: Denies fever, chills, or sweats. EYES: Denies visual changes, redness, or discharge. ENT: Denies rhinorrhea, congestion, sore throat, or otalgia. CARDIOVASCULAR: Denies chest pain, palpitations, or edema. RESPIRATORY: Denies cough or dyspnea. GASTROINTESTINAL: Denies abdominal pain, nausea, vomiting, or diarrhea. GENITOURINARY: Denies dysuria or hematuria. SKIN: Denies rash or itching. MUSCULOSKELETAL: Denies back pain, joint pain, or myalgia. NEUROLOGIC: Denies headache, numbness, or weakness. PSYCHIATRIC: Denies anxiety or depression. 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 Diabetic nephropathy Diabetic retinopathy S/p retinal surgery Diastolic dysfunction Noted on prior echocardiogram but most recent echocardiogram demonstrating hyperdynamic left ventricle with EF greater than 70% with no mention of diastolic dysfunction Essential hypertension History of angina Hyperlipidemia Kidney stones NSTEMI (non-ST elevated myocardial infarction) With chronic troponin elevation Orthostatic hypotension Paroxysmal atrial fibrillation Not on anticoagulation due to high has bled score/high fall risk Peripheral neuropathy Surgical History Surgical History History of cholecystectomy History of loop recorder patient states that it no longer works. Status post cataract extraction of both eyes with insertion of intraocular lens Family History Family History Sibling Hypertension Father Polycystic kidney disease Colon cancer Diabetes mellitus Prostate carcinoma Mother Cerebrovascular accident CHF (congestive heart failure) Diabetes mellitus Acute myocardial infarction Other Corpus callosum agenesis Social His
[2020-12-15] MEDS: SODIUM CHLORIDE 0.9% IV 1,000 ML 999 ML IV CONT (14:50)
[2020-12-15 17:56] LABS: Alanine Aminotransferase 18 U/L (4-50); Albumin Level 3.7 g/dL (3.5-5.1); Alkaline Phosphatase 90 U/L (38-126); Aspartate Amino Transferase 44 U/L (17-59); Bilirubin,Total 0.8 mg/dL (0.2-1.3)
[2020-12-15 18:07] LABS: Troponin I 0.034 ng/mL (0.000-0.034)
--- NOTE | 2020-12-15 19:00 | PM.IMHP ---
H&P: HPI History of Present Illness Date/Time: 12/15/20 19:00 Chief Complaint: Low blood pressure. Narrative: This is a 65-year-old male well known to the hospitalist service with multiple admissions over the years who presented to the emergency department earlier today via ambulance from home for evaluation of low blood pressure. His medical history is significant for stroke, historically poorly controlled type 2 diabetes mellitis, diastolic congestive heart failure, hypertension, coronary artery disease, chronic kidney disease, paroxysmal atrial fibrillation, and several other comorbidities. He was recently admitted to the hospital for couple of days with severe hyperglycemia and acute kidney injury and in fact was just discharged home yesterday. This morning he felt in his usual state of health, had breakfast, and re-treated to his living room to watch television. Visiting nurses were coming today any her the knock at the door. He remembers getting up to meet with the nurse and he is a bit confused as to what occurred thereafter. According to the visiting nurses his blood pressure was 60/40 and he did not seem to be totally with it. EMS was summoned and on their arrival he was sitting up and conversing, alert and oriented x4. He was hydrated in the emergency department however remains orthostatic with a drop in blood pressure from 180 to 98 systolic. Patient reports eating and drinking as per usual. He took his usual morning medications and antihypertensives to include clonidine, Toprol, hydrochlorothiazide, and losartan. As mentioned he does have a history of orthostatic hypotension and he is well aware of the fact, and tries to get up slowly and knows to sit down right away if he is feeling lightheaded. He has had falls from his orthostatic hypotension in the past, however, and with his most recent hospitalization he had a fall in which he sustained contusions to the left side of his face. Review of Systems Review of Systems: Twelve systems were reviewed. No fever, chills, or sweats. He denies sinus congestion, rhinorrhea, otalgia, and odynophagia. His glucose was 85 this morning. He has no symptoms of hypoglycemia with that. He denies cold and flu symptoms. No chest pain, pleuritic pain, or shortness of breath. No nausea, vomiting, diarrhea, or dysuria. Except as documented, all other systems were reviewed and are negative. 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 Diabetic retinopathy S/p retinal surgery Diastolic dysfunction Noted on prior echocardiogram but most recent echocardiogram demonstrating hyperdynamic left ventricle with EF greater than 70% with no mention of diastolic dysfunction Essential hypertension History of angina Hyperlipidemia Kidney stones NSTEMI (non-ST elevated myocardial infarction) With chronic troponin elevation Orthostatic hypotension Paroxysmal atrial fibrillation Not on anticoagulation due to high has bled score/high fall risk Peripheral neuropathy Surgical History Surgical History History of cholecystectomy History of loop recorder patient states that it no longer works. Status post cataract extraction of both eyes with insertion of intraocular lens Family History Family History Sibling Hypertension Father Polycystic kidney disease Colon cancer Diabetes mellitus Prostate carcinoma Moth
[2020-12-15] MEDS: SODIUM CHLORIDE 0.9% IV 1,000 ML 125 ML IV CONT (21:00)
[2020-12-15 21:15] LABS: Glucose Point of Care 381 mg/dl (65-105)
--- NOTE | 2020-12-15 22:05 | ADMGEN ---
This patient, Jorge Alberto Cortez, was admitted to Medical Room 261-01. Patient/family oriented to hospital policies and general routines including ID bracelet, bed and alarms, visiting hours, pain management, procedures, bathroom and other care routines, personal items, smoking policy, room service/diet, and visiting hours. Information on how to activate the Rapid Response Team has been discussed. Patient/Family are encouraged to report perceived risks to care and to ask questions if they do not understand what they are told or what they should do.
[2020-12-16] VITALS (16 sets, daily range): BP systolic 83–194; BP diastolic 43–117; PULSE 76–101; RESP 16–18; TEMP 36.2–36.7; O2SAT 96–99; BMI 27.3
[2020-12-16] MEDS: ATORVASTATIN 40 MG TABLET PO ×2 (00:47→21:25)
[2020-12-16] MEDS: SERTRALINE HCL 25 MG TABLET PO ×2 (00:47→21:25)
[2020-12-16] MEDS: INSULIN GLARGINE (*BKC) 100 UNITS/ML 18 UNITS SUB-Q (00:47)
[2020-12-16 05:50] LABS: Anion Gap 4 mmol/L (8-16); Blood Urea Nitrogen 15 mg/dL (9-20); Calcium 8.7 mg/dL (8.4-10.2); Carbon Dioxide 33 mmol/L (22-30); Chloride 100 mmol/L (98-107); Estimated CRCL calculation 78 ml/min; Estimated Glomerular Filt Rate > 60; Glucose 289 mg/dL (65-110); Magnesium 1.6 mg/dL (1.6-2.3); Potassium 3.8 mmol/L (3.4-5.0); Sodium 137 mmol/L (137-145)
[2020-12-16 07:54] LABS: Glucose Point of Care 263 mg/dl (65-105)
[2020-12-16] MEDS: INSULIN GLARGINE (*BKC) 100 UNITS/ML 30 UNITS SUB-Q (08:00)
[2020-12-16] MEDS: INSULIN ASPART (*BKC) 100 UNITS/ML 7 UNITS SUB-Q ×3 (08:01→16:38)
[2020-12-16] MEDS: INSULIN ASPART (*BKC) 100 UNITS/ML SUB-Q (08:01)
[2020-12-16] MEDS: TAMSULOSIN HCL 0.4 MG CAPSULE PO (08:05)
[2020-12-16] MEDS: LOSARTAN POTASSIUM 100 MG TABLET PO (08:05)
[2020-12-16] MEDS: metFORMIN HCL 500 MG TABLET 1000 MG PO ×2 (08:05→16:37)
[2020-12-16] MEDS: GABAPENTIN 400 MG CAPSULE PO ×3 (08:05→16:37)
[2020-12-16] MEDS: cloNIDine HCL 0.1 MG TABLET PO (08:06)
[2020-12-16] MEDS: ASPIRIN 81 MG ENTERIC TABLET PO (08:06)
[2020-12-16] MEDS: METOPROLOL TARTRATE 12.5 MG TABLET PO (08:06)
[2020-12-16] MEDS: MAGNESIUM OXIDE 400 MG TABLET PO (08:06)
[2020-12-16] MEDS: CYANOCOBALAMIN 1,000 MCG TABLET 1000 MCG PO (08:06)
[2020-12-16] MEDS: POTASSIUM CHLORIDE 20 MEQ TABLET.ER PO (08:06)
[2020-12-16] MEDS: SODIUM CHLORIDE 0.9% IV 1,000 ML 125 ML IV CONT (09:45)
[2020-12-16 11:55] LABS: Glucose Point of Care 150 mg/dl (65-105)
--- NOTE | 2020-12-16 14:52 | PM.IMPN ---
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 Patient has a history of the same, in part due to autonomic dysfunction. Unfortunately I do not think he would be a candidate for midodrine given the fact that he already has supine hypertension. He took all of his antihypertensives this morning at the same time, and perhaps these need to be staggered throughout the day. He will be admitted overnight for closer monitoring. Fall precautions initiated. Will monitor orthostatic vital signs. I wonder of Mo crump may be of some benefit. His labs were pretty unremarkable today. Home medications will be reviewed and resumed as appropriate. Anemia is stable on review of previous labs. He is currently in a sinus rhythm. Patient is not on anticoagulation for paroxysmal atrial fibrillation due to fall history. 12/16/20 Patient continues to have ongoing orthostasis despite 1.5 L resuscitation. Will order another 500 cc bolus and then continuous 60 cc/hour cortisol in a.m. and recheck orthostatic vital signs Q shift. Tamsulosin and clonidine have been discontinued. finasteride started. increase insulin cont current care re-eval in am Subjective Date/time seen: 12/16/20 14:52 Patient still with orthostatic hypotension and is very symptomatic per RN during vital sign check Patient denies any complaints at time my interview he states that he does feel dizzy when he had to have been any understands that he needs to move and lined sitting standing very slowly and only get up with assistance. Exam Narrative: GEN: NAD, AAOx3, cooperative HEENT: Ecchymosis over L periorbital region, MMM, EOMI Neck: no JVD Heart: S1S2 RRR Lungs: CTA B/l Abd: soft, NT, ND, bowel sounds normoactive Ext: moves all, no cyanosis, no clubbing, no edema Neuro: CN intact, no motor deficits appreciated Psych: Mood and affect congruent Objective Data Vital Signs Vital Signs: Vital Signs - 24 hr 12/15/20 15:42 12/15/20 17:07 12/15/20 17:09 Temperature Pulse Rate 81 100 99 Respiratory Rate 14 Blood Pressure 164/79 H 180/92 H 164/84 H Pulse Oximetry 99 12/15/20 17:10 12/15/20 17:40 12/15/20 20:00 Temperature Pulse Rate 118 H 95 88 Respiratory Rate 15 Blood Pressure 98/55 L 162/82 H Pulse Oximetry 99 12/15/20 21:31 12/16/20 00:00 12/16/20 02:21 Temperature Pulse Rate 95 90 Respiratory Rate 15 Blood Pressure 166/117 H Pulse Oximetry 99 12/16/20 04:00 12/16/20 06:00 12/16/20 08:00 Temperature 97.1 F L Pulse Rate 86 79 101 H Respiratory Rate 18 Blood Pressure 178/84 H Pulse Oximetry 96 12/16/20 08:06 12/16/20 12:00 12/16/20 14:40 Temperature Pulse Rate 79 76 Respiratory Rate Blood Pressure 101/46 L Pulse Oximetry 12/16/20 14:48 Temperature Pulse Rate Respiratory Rate Blood Pressure 84/43 L Pulse Oximetry Intake/Output Intake/Output: Intake & Output 12/13/20 12/14/20 12/15/20 12/16/20 23:59 23:59 23:59 23:59 Intake Total 1000 1720 Output Total 1250 Balance 1000 470 Meds/Results Medications: Active Medications
[2020-12-16] MEDS: SODIUM CHLORIDE 0.9% IV 500 ML IV CONT (14:59)
[2020-12-16] MEDS: SODIUM CHLORIDE 0.9% IV 1,000 ML 60 ML IV CONT (14:59)
[2020-12-16 16:36] LABS: Glucose Point of Care 111 mg/dl (65-105)
[2020-12-16 21:39] LABS: Glucose Point of Care 101 mg/dl (65-105)
[2020-12-16 21:39] LABS: Glucose Point of Care 70 mg/dl (65-105)
[2020-12-17] VITALS (12 sets, daily range): BP systolic 89–163; BP diastolic 56–85; PULSE 77–108; RESP 16–20; TEMP 36.4–36.7; O2SAT 94–98
[2020-12-17 05:37] LABS: Basophils Percent Auto 0.7 % (0.2-1.2); Eosinophils Absolute Auto 0.1 K/mm3 (0-0.3); Eosinophils Percent Auto 2.6 % (0-4.4); Hematocrit 32.1 % (42.0-52.0); Hemoglobin 10.4 g/dL (14.0-18.0); Immature Granulocyte Absolute 0.01 K/mm3 (0.00-0.031); Immature Granulocyte Percent A 0.2 % (0-0.5); Lymphocytes Absolute Auto 2.03 K/mm3 (0.9-3.2); Lymphocytes Percent Auto 37.9 % (18.3-44.2); Mean Corpuscular HGB Conc 32.4 g/dl (32-36); Mean Corpuscular Hemoglobin 31.7 pg (26-34); Mean Corpuscular Volume 97.9 fl (80-100); Monocytes Absolute Auto 0.3 K/mm3 (0.1-0.6); Neutrophils Absolute Auto 2.8 K/mm3 (1.3-6.7); Neutrophils Percent Auto 52.6 % (45.5-73.1); Red Blood Count 3.28 M/mm3 (4.6-6.20); Red Cell Distribution Width 14.6 % (11.5-14.5); White Blood Count 5.4 K/mm3 (4.5-10.0)
[2020-12-17 05:59] LABS: Alanine Aminotransferase 16 U/L (4-50); Albumin Level 2.9 g/dL (3.5-5.1); Alkaline Phosphatase 87 U/L (38-126); Anion Gap 7 mmol/L (8-16); Aspartate Amino Transferase 28 U/L (17-59); Bilirubin,Total 0.3 mg/dL (0.2-1.3); Blood Urea Nitrogen 17 mg/dL (9-20); Calcium 8.3 mg/dL (8.4-10.2); Carbon Dioxide 28 mmol/L (22-30); Chloride 106 mmol/L (98-107); Estimated CRCL calculation 86 ml/min; Estimated Glomerular Filt Rate > 60; Glucose 174 mg/dL (65-110); Magnesium 1.6 mg/dL (1.6-2.3); Potassium 4.3 mmol/L (3.4-5.0); Sodium 141 mmol/L (137-145)
[2020-12-17 06:16] LABS: Cortisol Random 3.72 ug/dL
[2020-12-17 07:33] LABS: Glucose Point of Care 156 mg/dl (65-105)
[2020-12-17] MEDS: INSULIN ASPART (*BKC) 100 UNITS/ML 7 UNITS SUB-Q ×2 (07:51→16:37)
[2020-12-17] MEDS: INSULIN GLARGINE (*BKC) 100 UNITS/ML 30 UNITS SUB-Q (07:51)
[2020-12-17] MEDS: MAGNESIUM OXIDE 400 MG TABLET PO (07:58)
[2020-12-17] MEDS: METOPROLOL TARTRATE 12.5 MG TABLET PO (07:58)
[2020-12-17] MEDS: POTASSIUM CHLORIDE 20 MEQ TABLET.ER PO (07:58)
[2020-12-17] MEDS: SODIUM CHLORIDE 0.9% IV 1,000 ML 60 ML IV CONT (07:58)
[2020-12-17] MEDS: ASPIRIN 81 MG ENTERIC TABLET PO (07:59)
[2020-12-17] MEDS: CYANOCOBALAMIN 1,000 MCG TABLET 1000 MCG PO (07:59)
[2020-12-17] MEDS: LOSARTAN POTASSIUM 100 MG TABLET PO (07:59)
[2020-12-17] MEDS: metFORMIN HCL 500 MG TABLET 1000 MG PO ×2 (07:59→16:37)
[2020-12-17] MEDS: GABAPENTIN 400 MG CAPSULE PO ×3 (07:59→16:37)
[2020-12-17] MEDS: FINASTERIDE 5 MG TABLET PO (08:54)
[2020-12-17 11:37] LABS: Glucose Point of Care 76 mg/dl (65-105)
--- NOTE | 2020-12-17 11:37 | PCOTNOTE ---
Attempted OT evaluation, patient reports wants to finish lunch prior to completing OT evaluation, will follow and attempt at later time.
--- NOTE | 2020-12-17 14:50 | PM.IMPN ---
Progress Note: A&P Assessment and Plan (1) Orthostatic hypotension: Code(s): I95.1 - Orthostatic hypotension Status: Acute (2) Insulin dependent type 2 diabetes mellitus: Code(s): E11.9 - Type 2 diabetes mellitus without complications; Z79.4 - intermediate (current) use of insulin Status: Acute (3) Chronic anemia: Code(s): D64.9 - Anemia, unspecified Status: Acute (4) Essential hypertension: Code(s): I10 - Essential (primary) hypertension Status: Acute (5) Hyperlipidemia: Code(s): E78.5 - Hyperlipidemia, unspecified Status: Chronic (6) Paroxysmal atrial fibrillation: Code(s): I48.0 - Paroxysmal atrial fibrillation Status: Chronic Additional Plan 12/15/20: The patient was brought into the hospital today for evaluation after he was found to have low blood pressure, confirmed to have orthostatic hypotension in the emergency department. Patient has a history of the same, in part due to autonomic dysfunction. Unfortunately I do not think he would be a candidate for midodrine given the fact that he already has supine hypertension. He took all of his antihypertensives this morning at the same time, and perhaps these need to be staggered throughout the day. He will be admitted overnight for closer monitoring. Fall precautions initiated. Will monitor orthostatic vital signs. I wonder of Mo crump may be of some benefit. His labs were pretty unremarkable today. Home medications will be reviewed and resumed as appropriate. Anemia is stable on review of previous labs. He is currently in a sinus rhythm. Patient is not on anticoagulation for paroxysmal atrial fibrillation due to fall history. 12/16/20 Patient continues to have ongoing orthostasis despite 1.5 L resuscitation. Will order another 500 cc bolus and then continuous 60 cc/hour cortisol in a.m. and recheck orthostatic vital signs Q shift. Tamsulosin and clonidine have been discontinued. finasteride started. increase insulin cont current care re-eval in am 12/17/20: He was hypoglycemic today. Will adjust his insulin and decrease his Lantus from 30 units to 20 units at nighttime and from 18 units to 12 units in the morning. Check hemoglobin A1c. Continues to be symptomatic and orthostatic after IV fluid resuscitation. Cardiology will be consulted for their inputs to titrate his blood pressure medications. Currently his Flomax and clonidine has been discontinued. He is currently on finasteride. Currently he is on metoprolol 12.5 mg once a day which will be continued. He is currently on losartan 100 mg which will be decreased to 50 mg. Continue to monitor hemodynamics and check orthostatic on the daily basis. PT has been consulted. He is currently not on any anticoagulation because of his multiple fall risk. Fall precautions will be maintained. Continue aspirin and Lipitor. Subjective Date/time seen: 12/17/20 14:50 He was hypotensive yesterday but now blood pressure seems to be within acceptable range. He was noticed to be hypoglycemic. Currently on 30 units of Lantus at nighttime and 18 units in the morning. He is still getting dizzy and lightheaded with walking and standing. Currently his Flonase and clonidine has been discontinued. Cortisone level was within normal range. Review of Systems Review of Systems: All systems reviewed & are unremarkable except as noted in HPI and below Exam Narrative: GEN: NAD, AAOx3, cooperative HEENT: Ecchymosis over L periorbital region, MMM, EOMI Neck: no JVD Heart: S1S2 RRR Lungs: CTA B/l Abd: soft, NT, ND, bowel sounds normoactive Ext: moves all, no cyanosis, no clubbing, no edema Neuro: CN intact, no motor deficits appreciated Psych: Mood and affect congruent Objective Data Vital Signs Vital Signs: Vital Signs - 24 hr 12/16/20 16:00 12/16/20 20:00 12/16/20 20:20 Temperature Pulse Rate 87 77 87 Respiratory Rate 18 Blood Pressure Puls
--- NOTE | 2020-12-17 15:22 | PM.CNCAR ---
Assessment and Plan Assessment and plan (1) Orthostatic hypotension: Code(s): I95.1 - Orthostatic hypotension Status: Acute Assessment and Plan: longstanding orthostatic hypotension presumed secondary to diabetic autonomic dysfunction. Recommend re-evaluating for adrenal insufficiency since this morning's cortisol level was mildly low Stop the finasteride Low blood pressure in this situation is more dangerous and high blood pressure Patient agreed to try the Florinef again. Daily BMP. I recommend trying midodrine t.i.d., and avoiding the supine position during the daytime hours waist high compression stockings (may need RX to a medical supply store); can try thigh-high Teds and abdominal binder while here. increase fluid and liberalize salt intake. Sometimes salt tablets are needed Avoid large meals, avoid standing after large meals Muscle squeezing while standing to improve venous return Try droxidopa? atomoxetine? (check a.m. norepinephrine levels first.) I have no personal experience with these meds. Supine exercise; agree w/ PH Tx. Avoid bedreset; up in chair as much as possible to retrain nervous system. (2) Syncope and collapse: Code(s): R55 - Syncope and collapse Status: Acute Assessment and Plan: Secondary to the above, no arrhythmias found (3) Essential hypertension: Code(s): I10 - Essential (primary) hypertension Status: Acute Assessment and Plan: patient has supine hypertension. (4) Paroxysmal atrial fibrillation: Code(s): I48.0 - Paroxysmal atrial fibrillation Status: Chronic Assessment and Plan: Carries a history of paroxysmal atrial fibrillation, though not has been demonstrated on his multiple hospitalizations at [facility] so apparently infrequent. Not a candidate for anticoagulation because of his frequent falls. History of Present Illness History of Present Illness Consult date/time: 12/17/20 15:22 Reason For Visit: Orthostatic hypotension/syncope and collapse Narrative: Jorge Alberto Cortez is a 65 y.o. male whom we were asked to see at the request of the hospitalists for advice and opinion regarding his orthostatic hypotension, in consultation. Also has a history of orthostasis thought to be due to diabetic autonomic dysfunction. Also history of paroxysmal atrial fibrillation (not anticoagulated because of frequent falls), poorly controlled diabetes, chronic troponin elevation, CHF, CAD, HTN, CVA, chronic kidney disease and several other comorbidities. The patient has a history of falls, syncope in orthostasis going back for several years. patient reports his seems worse in the last 6 months. He has been seen regularly by Dr. Kaplan, who apparently implanted a loop recorder several years ago which apparently showed it knows major arrhythmias except for perhaps paroxysmal atrial fibrillation. He has had several hospitalizations this year, and he was hospitalized here in twice in October for fall/orthostasis, and seen by Dr. Hilliard 11/10/2020, after another fall due to orthostasis. He had uncontrolled diabetes and DKA also. This is the patient's 4th hospitalization this month for low blood pressure, falls, and uncontrolled diabetes. Home health nurse found a blood pressure of 65 systolic and he was not acting right and directed him to come to the emergency room. He has refused custodial placement and has been going home with home health care but has little family support. since admission he has been given IV fluids, and his HCTZ and clonidine have been discontinued. It is thought that midodrine may not be a good idea because he has supine hypertension. He previously was on Florinef but says he believes it was discontinued because it made him jittery and apparently ineffective, although it may have been 2nd hypokalmia. Cortisol level in May 2020 was normal. One done in October was slightly low, around
[2020-12-17 16:31] LABS: Glucose Point of Care 118 mg/dl (65-105)
[2020-12-17] MEDS: SERTRALINE HCL 25 MG TABLET PO (20:10)
[2020-12-17] MEDS: ATORVASTATIN 40 MG TABLET PO (20:11)
[2020-12-17] MEDS: INSULIN GLARGINE (*BKC) 100 UNITS/ML 12 UNITS SUB-Q (20:19)
[2020-12-17 20:31] LABS: Glucose Point of Care 133 mg/dl (65-105)
[2020-12-18] VITALS (14 sets, daily range): BP systolic 93–191; BP diastolic 51–89; PULSE 69–102; RESP 16–22; TEMP 36.3–36.7; O2SAT 91–98
[2020-12-18] MEDS: SODIUM CHLORIDE 0.9% IV 1,000 ML 60 ML IV CONT ×2 (01:47→17:12)
[2020-12-18 06:13] LABS: Basophils Percent Auto 0.5 % (0.2-1.2); Eosinophils Absolute Auto 0.2 K/mm3 (0-0.3); Eosinophils Percent Auto 2.5 % (0-4.4); Hematocrit 33.7 % (42.0-52.0); Hemoglobin 11.3 g/dL (14.0-18.0); Immature Granulocyte Absolute 0.02 K/mm3 (0.00-0.031); Immature Granulocyte Percent A 0.3 % (0-0.5); Lymphocytes Absolute Auto 2.27 K/mm3 (0.9-3.2); Lymphocytes Percent Auto 35.9 % (18.3-44.2); Mean Corpuscular HGB Conc 33.5 g/dl (32-36); Mean Corpuscular Hemoglobin 31.4 pg (26-34); Mean Corpuscular Volume 93.6 fl (80-100); Mean Platelet Volume 10.8 fl (7.4-10.4); Monocytes Absolute Auto 0.4 K/mm3 (0.1-0.6); Monocytes Percent Auto 6.5 % (2.6-8.5); Neutrophils Absolute Auto 3.4 K/mm3 (1.3-6.7); Neutrophils Percent Auto 54.3 % (45.5-73.1); Platelet Count Result 197 k/mm3 (150-375); Red Cell Distribution Width 13.7 % (11.5-14.5); White Blood Count 6.3 K/mm3 (4.5-10.0)
[2020-12-18 06:27] LABS: Anion Gap 7 mmol/L (8-16); Blood Urea Nitrogen 13 mg/dL (9-20); Calcium 8.3 mg/dL (8.4-10.2); Carbon Dioxide 30 mmol/L (22-30); Chloride 103 mmol/L (98-107); Estimated CRCL calculation 86 ml/min; Estimated Glomerular Filt Rate > 60; Glucose 112 mg/dL (65-110); Magnesium 1.6 mg/dL (1.6-2.3); Potassium 3.5 mmol/L (3.4-5.0); Sodium 140 mmol/L (137-145)
[2020-12-18 07:08] LABS: Hemoglobin A1C 10.4 % (<5.7)
--- NOTE | 2020-12-18 07:53 | PM.PNCARD ---
Progress Note: A&P Additional Plan challenging situation with this gentleman with longstanding diabetes now with problematic orthostasis. As medications are adjusted he will of course become hypertensive and this will have to be accepted as a necessary consequence of treating his orthostasis. We will see how he does for now on current dose of midodrine in withdrawal of clonidine. If orthostasis continues to be problematic his ARB may have to be discontinued. Avoid diuretics. Tony Monk MD [facility] Subjective Date/time seen: date of service:12/18/20 07:53 Interval history: Follow-up visit in this 65-year-old man with: Problematic orthostatic hypotension which appears to be the result of autonomic dysfunction related to his longstanding diabetes. Patient has multiple frequent hospitalizations here with ketoacidosis and frequent consultations by our practice because of elevated troponin in this setting. Because of problematic orthostasis he has been taken off clonidine and started on midodrine. He is asymptomatic this morning but lying supine in bed. Orthostatic vital signs this morning not yet on the chart. Exam Const: General: comfortable and no acute distress HENMT: Mouth: Yes moist mucous membranes Eyes: Sclera: sclerae normal Pupils: Equal, round and reactive pupils present Neck: Neck: supple and no JVD Resp: Effort & Inspection: normal respiratory effort Auscultation: clear to auscultation bilaterally Cardio: Rate: regular rate Rhythm: regular rhythm Other: S1-S2 normal S4 is evident no murmur GI: GI Palp: Yes Soft to palpation Auscultation: normal bowel sounds Skin: General skin exam: normal color Neuro: Cognition (Neuro): normal cognition Extrem: Other: good distal pulses, no edema Objective Data Vital Signs Vital Signs: Vital Signs - 24 hr 12/17/20 07:58 12/17/20 08:00 12/17/20 08:02 Temperature 36.6 C 36.6 C Pulse Rate 82 89 98 Respiratory Rate 18 20 Blood Pressure 163/71 H 118/85 Pulse Oximetry 96 94 12/17/20 08:04 12/17/20 12:00 12/17/20 14:00 Temperature 36.6 C 36.7 C Pulse Rate 108 H 81 77 Respiratory Rate 20 18 Blood Pressure 89/56 L 147/74 H Pulse Oximetry 98 98 12/17/20 16:00 12/17/20 20:00 12/17/20 21:19 Temperature 36.6 C 36.6 C Pulse Rate 82 83 78 Respiratory Rate 16 16 Blood Pressure 148/67 H 148/67 H Pulse Oximetry 97 97 12/18/20 00:00 12/18/20 04:00 12/18/20 06:00 Temperature 36.5 C Pulse Rate 79 97 95 Respiratory Rate 16 Blood Pressure 158/89 H Pulse Oximetry 98 Intake/Output Intake/Output: Intake & Output 12/15/20 12/16/20 12/17/20 12/18/20 23:59 23:59 23:59 23:59 Intake Total 1000 3740 2424 1450 Output Total 1250 Balance 1000 2490 2424 1450 Meds/Results Medications: Active Medications Generic Name Dose Route Start Last Admin Trade Name Freq PRN Reason Stop Dose Admin Acetaminophen 650 mg 12/15/20 23:47 Acetaminophen 325 Mg Tablet PO Q4H PRN Mild Pain (1-3) Or Fever Aspirin 81 mg 12/16/20 09:00 12/17/20 07:59 Aspirin 81 Mg Enteric Tablet PO 81 mg DAILY NIKA Administration Atorvastatin Calcium 40 mg 12/15/20 23:55 12/17/20 20:11 Atorvastatin 40 Mg Tablet PO 40 mg HS NIKA Administration Cyanocobalamin 1,000 mcg 12/16/20 09:00 12/17/20 07:59 Cyanocobalamin 1,000 Mcg Tablet PO 1,000 mcg QAM NIKA Administration Dextrose 12.5 gm 12/15/20 23:46 Dextrose 50% 25 Gm/50 Ml Syringe IV PUSH PRN PRN Hypoglycemia Protocol Fludrocortisone Acetate 0.1 mg 12/18/20 08:00 Fludrocortisone Acetate 0.1 Mg Tablet PO DAILY@0800 NIKA Gabapentin 400 mg 12/16/20 09:00 12/17/20 16:37 Gabapentin 400 Mg Capsule PO 400 mg TID NIKA Administration Glucagon 1 mg 12/15/20 23:46 Glucagon For Inj 1 Mg Vial IM PRN PRN Hypoglycemia Protocol Glucose 15 gm 12/15/20 23:46 Glucose Oral Gel 15 Gm Of Glucse In 37.5 G
[2020-12-18] MEDS: COSYNTROPIN 0.25 MG/ML VIAL IV PUSH (08:09)
[2020-12-18] MEDS: MIDODRINE HCL 2.5 MG TABLET PO ×3 (08:11→17:09)
[2020-12-18] MEDS: CYANOCOBALAMIN 1,000 MCG TABLET 1000 MCG PO (08:11)
[2020-12-18] MEDS: ASPIRIN 81 MG ENTERIC TABLET PO (08:11)
[2020-12-18] MEDS: GABAPENTIN 400 MG CAPSULE PO ×3 (08:11→17:09)
[2020-12-18] MEDS: metFORMIN HCL 500 MG TABLET 1000 MG PO ×2 (08:11→17:09)
[2020-12-18] MEDS: MAGNESIUM OXIDE 400 MG TABLET PO (08:12)
[2020-12-18] MEDS: FLUDROCORTISONE ACETATE 0.1 MG TABLET PO (08:12)
[2020-12-18] MEDS: METOPROLOL TARTRATE 12.5 MG TABLET PO (08:12)
[2020-12-18] MEDS: POTASSIUM CHLORIDE 20 MEQ TABLET.ER PO (08:12)
[2020-12-18] MEDS: LOSARTAN POTASSIUM 50 MG TABLET PO (08:12)
[2020-12-18 08:13] LABS: Glucose Point of Care 102 mg/dl (65-105)
[2020-12-18] MEDS: INSULIN ASPART (*BKC) 100 UNITS/ML SUB-Q ×4 (08:57→17:09)
[2020-12-18] MEDS: INSULIN GLARGINE (*BKC) 100 UNITS/ML 20 UNITS SUB-Q (08:58)
[2020-12-18 11:24] LABS: Glucose Point of Care 238 mg/dl (65-105)
--- NOTE | 2020-12-18 13:49 | PM.IMPN ---
Progress Note: A&P Assessment and Plan (1) Orthostatic hypotension: Code(s): I95.1 - Orthostatic hypotension Status: Acute (2) Insulin dependent type 2 diabetes mellitus: Code(s): E11.9 - Type 2 diabetes mellitus without complications; Z79.4 - retirement (current) use of insulin Status: Acute (3) Chronic anemia: Code(s): D64.9 - Anemia, unspecified Status: Acute (4) Essential hypertension: Code(s): I10 - Essential (primary) hypertension Status: Acute (5) Hyperlipidemia: Code(s): E78.5 - Hyperlipidemia, unspecified Status: Chronic (6) Paroxysmal atrial fibrillation: Code(s): I48.0 - Paroxysmal atrial fibrillation Status: Chronic Additional Plan 12/15/20: The patient was brought into the hospital today for evaluation after he was found to have low blood pressure, confirmed to have orthostatic hypotension in the emergency department. Patient has a history of the same, in part due to autonomic dysfunction. Unfortunately I do not think he would be a candidate for midodrine given the fact that he already has supine hypertension. He took all of his antihypertensives this morning at the same time, and perhaps these need to be staggered throughout the day. He will be admitted overnight for closer monitoring. Fall precautions initiated. Will monitor orthostatic vital signs. I wonder of Mo crump may be of some benefit. His labs were pretty unremarkable today. Home medications will be reviewed and resumed as appropriate. Anemia is stable on review of previous labs. He is currently in a sinus rhythm. Patient is not on anticoagulation for paroxysmal atrial fibrillation due to fall history. 12/16/20 Patient continues to have ongoing orthostasis despite 1.5 L resuscitation. Will order another 500 cc bolus and then continuous 60 cc/hour cortisol in a.m. and recheck orthostatic vital signs Q shift. Tamsulosin and clonidine have been discontinued. finasteride started. increase insulin cont current care re-eval in am 12/17/20: He was hypoglycemic today. Will adjust his insulin and decrease his Lantus from 30 units to 20 units at nighttime and from 18 units to 12 units in the morning. Check hemoglobin A1c. Continues to be symptomatic and orthostatic after IV fluid resuscitation. Cardiology will be consulted for their inputs to titrate his blood pressure medications. Currently his Flomax and clonidine has been discontinued. He is currently on finasteride. Currently he is on metoprolol 12.5 mg once a day which will be continued. He is currently on losartan 100 mg which will be decreased to 50 mg. Continue to monitor hemodynamics and check orthostatic on the daily basis. PT has been consulted. He is currently not on any anticoagulation because of his multiple fall risk. Fall precautions will be maintained. Continue aspirin and Lipitor. 12/18/20: Cardiology was consulted and their recommendations appreciated. As per cardiology service; Longstanding orthostatic hypotension presumed secondary to diabetic autonomic dysfunction. Recommend re-evaluating for adrenal insufficiency since this morning's cortisol level was mildly low Stop the finasteride Low blood pressure in this situation is more dangerous and high blood pressure Patient agreed to try the Florinef again. Daily BMP. I recommend trying midodrine t.i.d., and avoiding the supine position during the daytime hours waist high compression stockings (may need RX to a medical supply store); can try thigh-high Teds and abdominal binder while here. increase fluid and liberalize salt intake. Sometimes salt tablets are needed Avoid large meals, avoid standing after large meals Muscle squeezing while standing to improve venous return Try droxidopa? atomoxetine? (check a.m. norepinephrine levels first.) I have no personal experience with these meds. Supine exercise; agree w/ PH Tx. Avoid bed rest; up in chair as much as possible to re
[2020-12-18 16:44] LABS: Glucose Point of Care 156 mg/dl (65-105)
[2020-12-18] MEDS: ATORVASTATIN 40 MG TABLET PO (20:51)
[2020-12-18] MEDS: INSULIN GLARGINE (*BKC) 100 UNITS/ML 12 UNITS SUB-Q (20:51)
[2020-12-18] MEDS: SERTRALINE HCL 25 MG TABLET PO (20:51)
[2020-12-18 21:03] LABS: Glucose Point of Care 144 mg/dl (65-105)
[2020-12-19] VITALS (13 sets, daily range): BP systolic 83–162; BP diastolic 46–83; PULSE 74–110; RESP 14–18; TEMP 36.3–36.8; O2SAT 98
[2020-12-19 05:53] LABS: Anion Gap 4 mmol/L (8-16); Blood Urea Nitrogen 13 mg/dL (9-20); Calcium 8.3 mg/dL (8.4-10.2); Carbon Dioxide 31 mmol/L (22-30); Chloride 103 mmol/L (98-107); Estimated CRCL calculation 96 ml/min; Estimated Glomerular Filt Rate > 60; Glucose 176 mg/dL (65-110); Potassium 3.4 mmol/L (3.4-5.0); Sodium 138 mmol/L (137-145)
[2020-12-19 07:02] LABS: Glucose Point of Care 137 mg/dl (65-105)
[2020-12-19] MEDS: metFORMIN HCL 500 MG TABLET 1000 MG PO ×2 (08:48→16:31)
[2020-12-19] MEDS: POTASSIUM CHLORIDE 20 MEQ TABLET.ER PO (08:48)
[2020-12-19] MEDS: MAGNESIUM OXIDE 400 MG TABLET PO (08:48)
[2020-12-19] MEDS: ASPIRIN 81 MG ENTERIC TABLET PO (08:48)
[2020-12-19] MEDS: GABAPENTIN 400 MG CAPSULE PO ×3 (08:48→16:31)
[2020-12-19] MEDS: FLUDROCORTISONE ACETATE 0.1 MG TABLET PO (08:49)
[2020-12-19] MEDS: METOPROLOL TARTRATE 12.5 MG TABLET PO (08:49)
[2020-12-19] MEDS: LOSARTAN POTASSIUM 50 MG TABLET PO (08:49)
[2020-12-19] MEDS: CYANOCOBALAMIN 1,000 MCG TABLET 1000 MCG PO (08:49)
[2020-12-19] MEDS: MIDODRINE HCL 2.5 MG TABLET PO ×3 (08:49→16:31)
[2020-12-19] MEDS: INSULIN GLARGINE (*BKC) 100 UNITS/ML 20 UNITS SUB-Q (08:57)
--- NOTE | 2020-12-19 09:05 | PM.IMPN ---
Progress Note: A&P Assessment and Plan (1) Orthostatic hypotension: Code(s): I95.1 - Orthostatic hypotension Status: Acute Assessment and Plan: Patient has been started on fludrocortisone Continue to monitor (2) Insulin dependent type 2 diabetes mellitus: Code(s): E11.9 - Type 2 diabetes mellitus without complications; Z79.4 - FPC (current) use of insulin Status: Acute Assessment and Plan: Continue to monitor continue insulin (3) Chronic anemia: Code(s): D64.9 - Anemia, unspecified Status: Acute Assessment and Plan: For continue to monitor (4) Essential hypertension: Code(s): I10 - Essential (primary) hypertension Status: Acute Assessment and Plan: Continue to monitor He continues to get his losartan and his metoprolol (5) Hyperlipidemia: Code(s): E78.5 - Hyperlipidemia, unspecified Status: Chronic Assessment and Plan: Continue to monitor Follow-up in outpatient setting Continue statin (6) Paroxysmal atrial fibrillation: Code(s): I48.0 - Paroxysmal atrial fibrillation Status: Chronic Assessment and Plan: Rate controlled Stable Additional Plan 12/15/20: The patient was brought into the hospital today for evaluation after he was found to have low blood pressure, confirmed to have orthostatic hypotension in the emergency department. Patient has a history of the same, in part due to autonomic dysfunction. Unfortunately I do not think he would be a candidate for midodrine given the fact that he already has supine hypertension. He took all of his antihypertensives this morning at the same time, and perhaps these need to be staggered throughout the day. He will be admitted overnight for closer monitoring. Fall precautions initiated. Will monitor orthostatic vital signs. I wonder of Mo crump may be of some benefit. His labs were pretty unremarkable today. Home medications will be reviewed and resumed as appropriate. Anemia is stable on review of previous labs. He is currently in a sinus rhythm. Patient is not on anticoagulation for paroxysmal atrial fibrillation due to fall history. 12/16/20 Patient continues to have ongoing orthostasis despite 1.5 L resuscitation. Will order another 500 cc bolus and then continuous 60 cc/hour cortisol in a.m. and recheck orthostatic vital signs Q shift. Tamsulosin and clonidine have been discontinued. finasteride started. increase insulin cont current care re-eval in am 12/17/20: He was hypoglycemic today. Will adjust his insulin and decrease his Lantus from 30 units to 20 units at nighttime and from 18 units to 12 units in the morning. Check hemoglobin A1c. Continues to be symptomatic and orthostatic after IV fluid resuscitation. Cardiology will be consulted for their inputs to titrate his blood pressure medications. Currently his Flomax and clonidine has been discontinued. He is currently on finasteride. Currently he is on metoprolol 12.5 mg once a day which will be continued. He is currently on losartan 100 mg which will be decreased to 50 mg. Continue to monitor hemodynamics and check orthostatic on the daily basis. PT has been consulted. He is currently not on any anticoagulation because of his multiple fall risk. Fall precautions will be maintained. Continue aspirin and Lipitor. 12/18/20: Cardiology was consulted and their recommendations appreciated. As per cardiology service; Longstanding orthostatic hypotension presumed secondary to diabetic autonomic dysfunction. Recommend re-evaluating for adrenal insufficiency since this morning's cortisol level was mildly low Stop the finasteride Low blood pressure in this situation is more dangerous and high blood pressure Patient agreed to try the Florinef again. Daily BMP. I recommend trying midodrine t.i.d., and avoiding the supine position during the daytime hours waist high compression stockings (may need RX to a medical
--- NOTE | 2020-12-19 09:14 | PM.PNCARD ---
Progress Note: A&P Assessment and Plan (1) Orthostatic hypotension: Code(s): I95.1 - Orthostatic hypotension Status: Acute Assessment and Plan: longstanding orthostatic hypotension presumed secondary to diabetic autonomic dysfunction. Recommend re-evaluating for adrenal insufficiency since this morning's cortisol level was mildly low Stop the finasteride Low blood pressure in this situation is more dangerous and high blood pressure Patient agreed to try the Florinef again. Daily BMP. I recommend trying midodrine t.i.d., and avoiding the supine position during the daytime hours waist high compression stockings (may need RX to a medical supply store); can try thigh-high Teds and abdominal binder while here. increase fluid and liberalize salt intake. Sometimes salt tablets are needed Avoid large meals, avoid standing after large meals Muscle squeezing while standing to improve venous return Try droxidopa? atomoxetine? Supine exercise; agree w/ PH Tx. Avoid bedreset; up in chair as much as possible to retrain nervous system. (2) Syncope and collapse: Code(s): R55 - Syncope and collapse Status: Acute Assessment and Plan: Secondary to the above, no arrhythmias found (3) Essential hypertension: Code(s): I10 - Essential (primary) hypertension Status: Acute Assessment and Plan: patient has supine hypertension. (4) Paroxysmal atrial fibrillation: Code(s): I48.0 - Paroxysmal atrial fibrillation Status: Chronic Assessment and Plan: Carries a history of paroxysmal atrial fibrillation, though not has been demonstrated on his multiple hospitalizations at [facility] so apparently infrequent. Not a candidate for anticoagulation because of his frequent falls. (5) Hypokalemia: Code(s): E87.6 - Hypokalemia Status: Acute Assessment and Plan: additional potassium chloride some 40 mEq p.o. x1 Subjective Date/time seen: 12/19/20 09:14 Interval history: Follow-up visit in this 65-year-old man with: Problematic orthostatic hypotension which appears to be the result of autonomic dysfunction related to his longstanding diabetes. Patient has multiple frequent hospitalizations here with ketoacidosis and frequent consultations by our practice because of elevated troponin in this setting. Because of problematic orthostasis he has been taken off clonidine and started on midodrine. He is asymptomatic this morning but lying supine in bed. Orthostatic vital signs this morning not yet on the chart. Date of service 12/19/2020: He still dizzy upon standing but he thinks that he is stabilizing. No chest pain or shortness of breath. No unusual/significant headache Review of Systems Constitutional: Constitutional: Reports weakness Eyes: Eyes: Reports no additional eye complaints ENT: Denies epistaxis Cardiovascular: Cardiovascular: Denies chest pain, Denies diaphoresis, Denies leg edema, Reports lightheadedness, Denies palpitations, Denies dyspnea and Denies dyspnea on exertion Respiratory: Respiratory: Denies dyspnea and Denies dyspnea on exertion Gastrointestinal: Gastrointestinal: Denies abdominal pain and Denies hematochezia Genitourinary: Genitourinary: Denies hematuria Musculoskeletal: Musculoskeletal: Reports abnormal gait and Reports arthralgias Integumentary/Breasts: Skin/Breast: Reports wounds ( ecchymosis around left eye) Neurologic: Reports abnormal gait, Denies behavioral changes and Reports weakness Psychiatric: Psychiatric: Denies behavioral changes Endocrine: Endocrine: Denies palpitations Exam Narrative: Napping on my arrival, easily aroused. Const: General: comfortable and no acute distress Orientation/consciousness: patient oriented x3 HENMT: Mouth: Yes moist mucous membranes Eyes: Sclera: sclerae normal Pupils: Equal, round and reactive pupils present EOM: EOMs intact bilaterally N
[2020-12-19] MEDS: POTASSIUM CHLORIDE 20 MEQ TABLET 40 MEQ PO (09:40)
--- NOTE | 2020-12-19 10:03 | PCOTNOTE ---
Patient declined treatment this date due to pending IV's. ADL's already completed.
[2020-12-19 12:05] LABS: Glucose Point of Care 135 mg/dl (65-105)
[2020-12-19] MEDS: INSULIN ASPART (*BKC) 100 UNITS/ML SUB-Q ×2 (12:28→16:33)
[2020-12-19] MEDS: SODIUM CHLORIDE 0.9% IV 1,000 ML 60 ML IV CONT (14:33)
--- NOTE | 2020-12-19 15:13 | PCPTNOTE ---
Attempted to see patient for PT treatment, patient declined stating I really just don't feel great right now . Will attempt again tomorrow.
[2020-12-19 16:45] LABS: Glucose Point of Care 102 mg/dl (65-105)
[2020-12-19] MEDS: ATORVASTATIN 40 MG TABLET PO (20:34)
[2020-12-19] MEDS: SERTRALINE HCL 25 MG TABLET PO (20:34)
[2020-12-19] MEDS: INSULIN GLARGINE (*BKC) 100 UNITS/ML 12 UNITS SUB-Q (20:34)
[2020-12-19 23:21] LABS: Glucose Point of Care 163 mg/dl (65-105)
[2020-12-20] VITALS (14 sets, daily range): BP systolic 128–187; BP diastolic 55–90; PULSE 73–102; RESP 16–18; TEMP 36–37.1; O2SAT 97–98
[2020-12-20] MEDS: SODIUM CHLORIDE 0.9% IV 1,000 ML 60 ML IV CONT ×2 (05:32→20:18)
[2020-12-20] MEDS: FLUDROCORTISONE ACETATE 0.1 MG TABLET PO (08:29)
[2020-12-20] MEDS: POTASSIUM CHLORIDE 20 MEQ TABLET.ER PO (08:29)
[2020-12-20] MEDS: ASPIRIN 81 MG ENTERIC TABLET PO (08:29)
[2020-12-20] MEDS: metFORMIN HCL 500 MG TABLET 1000 MG PO ×2 (08:29→16:43)
[2020-12-20] MEDS: MIDODRINE HCL 2.5 MG TABLET PO (08:30)
[2020-12-20] MEDS: GABAPENTIN 400 MG CAPSULE PO ×3 (08:30→16:43)
[2020-12-20] MEDS: CYANOCOBALAMIN 1,000 MCG TABLET 1000 MCG PO (08:30)
[2020-12-20] MEDS: MAGNESIUM OXIDE 400 MG TABLET PO (08:31)
[2020-12-20] MEDS: METOPROLOL TARTRATE 12.5 MG TABLET PO (08:35)
[2020-12-20] MEDS: INSULIN ASPART (*BKC) 100 UNITS/ML SUB-Q ×2 (08:41→12:21)
[2020-12-20] MEDS: INSULIN GLARGINE (*BKC) 100 UNITS/ML 20 UNITS SUB-Q (08:42)
--- NOTE | 2020-12-20 08:46 | PM.PNCARD ---
Progress Note: A&P Assessment and Plan (1) Orthostatic hypotension: Code(s): I95.1 - Orthostatic hypotension Status: Acute Assessment and Plan: longstanding orthostatic hypotension presumed secondary to diabetic autonomic dysfunction. Recommend re-evaluating for adrenal insufficiency since this morning's cortisol level was mildly low Stop the finasteride Low blood pressure in this situation is more dangerous and high blood pressure Patient agreed to try the Florinef again. Daily BMP. I recommend trying midodrine t.i.d., and avoiding the supine position during the daytime hours waist high compression stockings (may need RX to a medical supply store); can try thigh-high Teds and abdominal binder while here. increase fluid and liberalize salt intake. Sometimes salt tablets are needed Avoid large meals, avoid standing after large meals Muscle squeezing while standing to improve venous return Try droxidopa? atomoxetine? Supine exercise; agree w/ PH Tx. Avoid bedreset; up in chair as much as possible to retrain nervous system. Will increase midodrine 5 mg p.o. t.i.d. (2) Syncope and collapse: Code(s): R55 - Syncope and collapse Status: Acute Assessment and Plan: Secondary to the above, no arrhythmias found (3) Essential hypertension: Code(s): I10 - Essential (primary) hypertension Status: Acute Assessment and Plan: patient has supine hypertension. (4) Paroxysmal atrial fibrillation: Code(s): I48.0 - Paroxysmal atrial fibrillation Status: Chronic Assessment and Plan: Carries a history of paroxysmal atrial fibrillation, though not has been demonstrated on his multiple hospitalizations at [facility] so apparently infrequent. Not a candidate for anticoagulation because of his frequent falls. (5) Hypokalemia: Code(s): E87.6 - Hypokalemia Status: Acute Assessment and Plan: Once again, additional potassium chloride some 40 mEq p.o. x1 Subjective Date/time seen: 12/20/20 08:46 Interval history: Follow-up visit in this 65-year-old man with: Problematic orthostatic hypotension which appears to be the result of autonomic dysfunction related to his longstanding diabetes. Patient has multiple frequent hospitalizations here with ketoacidosis and frequent consultations by our practice because of elevated troponin in this setting. Because of problematic orthostasis he has been taken off clonidine and started on midodrine. He is asymptomatic this morning but lying supine in bed. Orthostatic vital signs this morning not yet on the chart. Date of service 12/19/2020: He still dizzy upon standing but he thinks that he is stabilizing. No chest pain or shortness of breath. No unusual/significant headache Date of service 12/20/2020: Feels about the same. Blood pressure still significantly dropping upon standing. No chest pain or shortness of breath Review of Systems Constitutional: Constitutional: Reports weakness Eyes: Eyes: Reports no additional eye complaints ENT: Denies epistaxis Cardiovascular: Cardiovascular: Denies chest pain, Denies diaphoresis, Denies leg edema, Reports lightheadedness, Denies palpitations, Denies dyspnea and Denies dyspnea on exertion Respiratory: Respiratory: Denies dyspnea and Denies dyspnea on exertion Gastrointestinal: Gastrointestinal: Denies abdominal pain and Denies hematochezia Genitourinary: Genitourinary: Denies hematuria Musculoskeletal: Musculoskeletal: Reports abnormal gait and Reports arthralgias Integumentary/Breasts: Skin/Breast: Reports wounds ( ecchymosis around left eye) Neurologic: Reports abnormal gait, Denies behavioral changes and Reports weakness Psychiatric: Psychiatric: Denies behavioral changes Endocrine: Endocrine: Denies palpitations Exam Narrative: Napping on my arrival, easily aroused. Const: General: comfortable and no acute distress
[2020-12-20] MEDS: MIDODRINE HCL 2.5 MG TABLET 5 MG PO ×3 (09:17→16:43)
[2020-12-20 10:02] LABS: Glucose Point of Care 141 mg/dl (65-105)
--- NOTE | 2020-12-20 11:30 | PM.IMPN ---
Progress Note: A&P Assessment and Plan (1) Orthostatic hypotension: Code(s): I95.1 - Orthostatic hypotension Status: Acute Assessment and Plan: Appreciate cardiology note Midodrine added Patient has been started on fludrocortisone Continue to monitor (2) Insulin dependent type 2 diabetes mellitus: Code(s): E11.9 - Type 2 diabetes mellitus without complications; Z79.4 - shelter (current) use of insulin Status: Acute Assessment and Plan: Continue to monitor continue insulin (3) Chronic anemia: Code(s): D64.9 - Anemia, unspecified Status: Acute Assessment and Plan: Continue to monitor (4) Essential hypertension: Code(s): I10 - Essential (primary) hypertension Status: Acute Assessment and Plan: Continue to monitor He continues to get his losartan and his metoprolol (5) Hyperlipidemia: Code(s): E78.5 - Hyperlipidemia, unspecified Status: Chronic Assessment and Plan: Continue to monitor Follow-up in outpatient setting Continue statin (6) Paroxysmal atrial fibrillation: Code(s): I48.0 - Paroxysmal atrial fibrillation Status: Chronic Assessment and Plan: Rate controlled Stable Additional Plan 12/15/20: The patient was brought into the hospital today for evaluation after he was found to have low blood pressure, confirmed to have orthostatic hypotension in the emergency department. Patient has a history of the same, in part due to autonomic dysfunction. Unfortunately I do not think he would be a candidate for midodrine given the fact that he already has supine hypertension. He took all of his antihypertensives this morning at the same time, and perhaps these need to be staggered throughout the day. He will be admitted overnight for closer monitoring. Fall precautions initiated. Will monitor orthostatic vital signs. I wonder of Mo crump may be of some benefit. His labs were pretty unremarkable today. Home medications will be reviewed and resumed as appropriate. Anemia is stable on review of previous labs. He is currently in a sinus rhythm. Patient is not on anticoagulation for paroxysmal atrial fibrillation due to fall history. 12/16/20 Patient continues to have ongoing orthostasis despite 1.5 L resuscitation. Will order another 500 cc bolus and then continuous 60 cc/hour cortisol in a.m. and recheck orthostatic vital signs Q shift. Tamsulosin and clonidine have been discontinued. finasteride started. increase insulin cont current care re-eval in am 12/17/20: He was hypoglycemic today. Will adjust his insulin and decrease his Lantus from 30 units to 20 units at nighttime and from 18 units to 12 units in the morning. Check hemoglobin A1c. Continues to be symptomatic and orthostatic after IV fluid resuscitation. Cardiology will be consulted for their inputs to titrate his blood pressure medications. Currently his Flomax and clonidine has been discontinued. He is currently on finasteride. Currently he is on metoprolol 12.5 mg once a day which will be continued. He is currently on losartan 100 mg which will be decreased to 50 mg. Continue to monitor hemodynamics and check orthostatic on the daily basis. PT has been consulted. He is currently not on any anticoagulation because of his multiple fall risk. Fall precautions will be maintained. Continue aspirin and Lipitor. 12/18/20: Cardiology was consulted and their recommendations appreciated. As per cardiology service; Longstanding orthostatic hypotension presumed secondary to diabetic autonomic dysfunction. Recommend re-evaluating for adrenal insufficiency since this morning's cortisol level was mildly low Stop the finasteride Low blood pressure in this situation is more dangerous and high blood pressure Patient agreed to try the Florinef again. Daily BMP. I recommend trying midodrine t.i.d., and avoiding the supine position during the daytime hours waist high omer
[2020-12-20 11:54] LABS: Glucose Point of Care 139 mg/dl (65-105)
[2020-12-20 15:28] LABS: Basophils Percent Auto 0.6 % (0.2-1.2); Eosinophils Absolute Auto 0.2 K/mm3 (0-0.3); Eosinophils Percent Auto 2.1 % (0-4.4); Hematocrit 33.1 % (42.0-52.0); Hemoglobin 10.7 g/dL (14.0-18.0); Immature Granulocyte Absolute 0.01 K/mm3 (0.00-0.031); Immature Granulocyte Percent A 0.1 % (0-0.5); Lymphocytes Absolute Auto 1.61 K/mm3 (0.9-3.2); Lymphocytes Percent Auto 22.9 % (18.3-44.2); Mean Corpuscular HGB Conc 32.3 g/dl (32-36); Mean Corpuscular Hemoglobin 31.8 pg (26-34); Mean Corpuscular Volume 98.5 fl (80-100); Mean Platelet Volume 10.6 fl (7.4-10.4); Monocytes Absolute Auto 0.6 K/mm3 (0.1-0.6); Monocytes Percent Auto 8.8 % (2.6-8.5); Neutrophils Absolute Auto 4.6 K/mm3 (1.3-6.7); Neutrophils Percent Auto 65.5 % (45.5-73.1); Platelet Count Result 181 k/mm3 (150-375); Red Blood Count 3.36 M/mm3 (4.6-6.20); Red Cell Distribution Width 14.6 % (11.5-14.5)
--- NOTE | 2020-12-20 15:43 | PCPTNOTE ---
Attempted to see patient for Physical Therapy session at [id number]. Patient refused stating Can we save this for tomorrow, I'm just feeling like crud . Discussed importance of participating with therapy. RN notified of patient's refusal.
[2020-12-20 15:58] LABS: Anion Gap 5 mmol/L (8-16); Blood Urea Nitrogen 14 mg/dL (9-20); Calcium 8.4 mg/dL (8.4-10.2); Carbon Dioxide 30 mmol/L (22-30); Chloride 106 mmol/L (98-107); Estimated CRCL calculation 78 ml/min; Estimated Glomerular Filt Rate > 60; Glucose 105 mg/dL (65-110); Magnesium 1.8 mg/dL (1.6-2.3); Phosphorus 2.6 mg/dL (2.5-4.5); Potassium 4.4 mmol/L (3.4-5.0); Sodium 141 mmol/L (137-145)
[2020-12-20 16:50] LABS: Glucose Point of Care 84 mg/dl (65-105)
[2020-12-20] MEDS: ATORVASTATIN 40 MG TABLET PO (20:20)
[2020-12-20] MEDS: INSULIN GLARGINE (*BKC) 100 UNITS/ML 12 UNITS SUB-Q (20:21)
[2020-12-20] MEDS: SERTRALINE HCL 25 MG TABLET PO (20:22)
[2020-12-20 20:51] LABS: Glucose Point of Care 107 mg/dl (65-105)
[2020-12-21] VITALS (13 sets, daily range): BP systolic 86–181; BP diastolic 48–86; PULSE 74–109; RESP 16–18; TEMP 36.3–36.6; O2SAT 97–99
[2020-12-21 06:18] LABS: Glucose Point of Care 127 mg/dl (65-105)
[2020-12-21] MEDS: INSULIN ASPART (*BKC) 100 UNITS/ML SUB-Q ×3 (07:58→16:40)
[2020-12-21] MEDS: INSULIN GLARGINE (*BKC) 100 UNITS/ML 20 UNITS SUB-Q (08:00)
[2020-12-21] MEDS: metFORMIN HCL 500 MG TABLET 1000 MG PO ×2 (08:12→16:39)
[2020-12-21] MEDS: FLUDROCORTISONE ACETATE 0.1 MG TABLET PO (08:12)
[2020-12-21] MEDS: GABAPENTIN 400 MG CAPSULE PO ×3 (08:12→16:38)
[2020-12-21] MEDS: ASPIRIN 81 MG ENTERIC TABLET PO (08:12)
[2020-12-21] MEDS: CYANOCOBALAMIN 1,000 MCG TABLET 1000 MCG PO (08:12)
[2020-12-21] MEDS: MIDODRINE HCL 2.5 MG TABLET 5 MG PO ×3 (08:13→16:39)
[2020-12-21] MEDS: METOPROLOL TARTRATE 12.5 MG TABLET PO (08:13)
[2020-12-21] MEDS: MAGNESIUM OXIDE 400 MG TABLET PO (08:13)
--- NOTE | 2020-12-21 10:12 | PC.NURSE ---
Dr. Ware notified of pt orthostatic positive this am and holding cozzar and potassium was 4.4 so help potassium also
--- NOTE | 2020-12-21 11:03 | PCOTNOTE ---
Attempted to see patient for OT tx this AM. Patient declined any/all activity at this time. Educated patient on the benefits of therapy and he continued to decline. Will continue to attempt as able.
[2020-12-21 11:20] LABS: Glucose Point of Care 183 mg/dl (65-105)
[2020-12-21] MEDS: SILVERGEL (ELTA) 45 ML 1 APPLIC TOPICAL (11:46)
--- NOTE | 2020-12-21 12:05 | PM.IMPN ---
Progress Note: A&P Assessment and Plan (1) Orthostatic hypotension: Code(s): I95.1 - Orthostatic hypotension Status: Acute Assessment and Plan: Appreciate cardiology note Midodrine added Patient has been started on fludrocortisone Continue to monitor Abdominal binder on Some improvement (2) Insulin dependent type 2 diabetes mellitus: Code(s): E11.9 - Type 2 diabetes mellitus without complications; Z79.4 - snf (current) use of insulin Status: Acute Assessment and Plan: Continue to monitor continue insulin (3) Chronic anemia: Code(s): D64.9 - Anemia, unspecified Status: Acute Assessment and Plan: Continue to monitor (4) Essential hypertension: Code(s): I10 - Essential (primary) hypertension Status: Acute Assessment and Plan: Continue to monitor He continues to get his losartan and his metoprolol (5) Hyperlipidemia: Code(s): E78.5 - Hyperlipidemia, unspecified Status: Chronic Assessment and Plan: Continue to monitor Follow-up in outpatient setting Continue statin (6) Paroxysmal atrial fibrillation: Code(s): I48.0 - Paroxysmal atrial fibrillation Status: Chronic Assessment and Plan: Rate controlled Stable Additional Plan 12/15/20: The patient was brought into the hospital today for evaluation after he was found to have low blood pressure, confirmed to have orthostatic hypotension in the emergency department. Patient has a history of the same, in part due to autonomic dysfunction. Unfortunately I do not think he would be a candidate for midodrine given the fact that he already has supine hypertension. He took all of his antihypertensives this morning at the same time, and perhaps these need to be staggered throughout the day. He will be admitted overnight for closer monitoring. Fall precautions initiated. Will monitor orthostatic vital signs. I wonder of Mo crump may be of some benefit. His labs were pretty unremarkable today. Home medications will be reviewed and resumed as appropriate. Anemia is stable on review of previous labs. He is currently in a sinus rhythm. Patient is not on anticoagulation for paroxysmal atrial fibrillation due to fall history. 12/16/20 Patient continues to have ongoing orthostasis despite 1.5 L resuscitation. Will order another 500 cc bolus and then continuous 60 cc/hour cortisol in a.m. and recheck orthostatic vital signs Q shift. Tamsulosin and clonidine have been discontinued. finasteride started. increase insulin cont current care re-eval in am 10/21/21: He was hypoglycemic today. Will adjust his insulin and decrease his Lantus from 30 units to 20 units at nighttime and from 18 units to 12 units in the morning. Check hemoglobin A1c. Continues to be symptomatic and orthostatic after IV fluid resuscitation. Cardiology will be consulted for their inputs to titrate his blood pressure medications. Currently his Flomax and clonidine has been discontinued. He is currently on finasteride. Currently he is on metoprolol 12.5 mg once a day which will be continued. He is currently on losartan 100 mg which will be decreased to 50 mg. Continue to monitor hemodynamics and check orthostatic on the daily basis. PT has been consulted. He is currently not on any anticoagulation because of his multiple fall risk. Fall precautions will be maintained. Continue aspirin and Lipitor. 12/18/20: Cardiology was consulted and their recommendations appreciated. As per cardiology service; Longstanding orthostatic hypotension presumed secondary to diabetic autonomic dysfunction. Recommend re-evaluating for adrenal insufficiency since this morning's cortisol level was mildly low Stop the finasteride Low blood pressure in this situation is more dangerous and high blood pressure Patient agreed to try the Florinef again. Daily BMP. I recommend trying midodrine t.i.d., and avoiding the supine position mirta
[2020-12-21] MEDS: SODIUM CHLORIDE 0.9% IV 1,000 ML 60 ML IV CONT (13:02)
--- NOTE | 2020-12-21 14:09 | PM.PNCARD ---
Progress Note: A&P Additional Plan 65-year-old man with: Challenging situation with problematic orthostasis due to autonomic dysfunction related to his diabetes. I am going to stop his losartan at this time. Obviously as we withdraw antihypertensives his blood pressure will continue to climb and this will have to be Accepted as the necessary consequence of trying to keep him from having orthostatic related syncope. Patient while supine in bed is perfectly comfortable and in good spirits Tony Monk MD [facility] Subjective Date/time seen: 12/21/20 14:09 Interval history: Follow-up visit in this 65-year-old man with: Problematic orthostatic hypotension which appears to be the result of autonomic dysfunction related to his longstanding diabetes. Patient has multiple frequent hospitalizations here with ketoacidosis and frequent consultations by our practice because of elevated troponin in this setting. Because of problematic orthostasis he has been taken off clonidine and started on midodrine. He is asymptomatic this morning but lying supine in bed. Orthostatic vital signs this morning not yet on the chart. Date of service 12/19/2020: He still dizzy upon standing but he thinks that he is stabilizing. No chest pain or shortness of breath. No unusual/significant headache Date of service 12/20/2020: Feels about the same. Blood pressure still significantly dropping upon standing. No chest pain or shortness of breath date of service 12/21/2020: No complaints other than still significantly orthostatic this morning. Systolic blood pressure declines approximately 90 mmHg. Exam Narrative: Napping on my arrival, easily aroused. Const: General: comfortable and no acute distress Orientation/consciousness: patient oriented x3 HENMT: Mouth: Yes moist mucous membranes Eyes: Sclera: sclerae normal Pupils: Equal, round and reactive pupils present EOM: EOMs intact bilaterally Neck: Neck: supple and no JVD Thyroid: thyroid normal Carotids: no bruits Lymphatic: lymphadenopathy not noted Resp: Effort & Inspection: normal respiratory effort Auscultation: clear to auscultation bilaterally Cardio: Rate: regular rate Rhythm: regular rhythm Heart sounds: no murmurs Other: S1-S2 normal S4 is evident no murmur GI: Inspection: non-distended Auscultation: normal bowel sounds Skin: General skin exam: normal color Wounds: wounds noted (left orbital ecchymosis) Neuro: General: patient oriented x3 Cranial nerves: Yes Equal, round and reactive pupils present Cognition (Neuro): normal cognition Speech: normal speech Extrem: General: edema and pedal edema Other: good distal pulses, no edema Psych: Mental Status: mental status grossly normal Other: Somewhat inappropriate at times, saying that his loop recorder bedside monitor went off and apparently EMS was dispatched with flashing lights, saying that the neighborhood looked brighter than a whore house. Objective Data Vital Signs Vital Signs: Vital Signs - 24 hr 12/20/20 16:00 12/20/20 20:00 12/20/20 20:29 Temperature 36.0 C L 36.0 C L Pulse Rate 77 94 84 Pulse Rate [At Rest After Therapy Session] Pulse Rate [At Rest Prior to Therapy Session] Pulse Rate [With Activity During Therapy Session] Respiratory Rate 18 18 Blood Pressure 187/85 H 187/85 H Pulse Oximetry 98 98 12/20/20 21:18 12/21/20 00:00 12/21/20 04:00 Temperature Pulse Rate 87 91 Pulse Rate [At Rest After Therapy Session] Pulse Rate [At Rest Prior to Therapy Session] Pulse Rate [With Activity During Therapy Session] Respiratory Rate Blood Pressure 128/55 L Pulse Oximetry 12/21/20 04:20 12/21/20 08:00 12/21/20 08:13 Temperature 36.3 C L 36.3 C L Pulse Rate 94 109 H 80 Pulse Rate [At Rest After Therapy Session] Pulse Rate [At Rest Prior to Therapy Session] Pulse Rate [With Activity During Therapy Session] Respiratory Rate 17 18 Blood
--- NOTE | 2020-12-21 15:18 | PCOTNOTE ---
Attempted a second time today. Patient refusing any/all activity despite encouragement. Will continue to attempt as able.
[2020-12-21 16:43] LABS: Glucose Point of Care 137 mg/dl (65-105)
[2020-12-21] MEDS: ATORVASTATIN 40 MG TABLET PO (20:05)
[2020-12-21] MEDS: INSULIN GLARGINE (*BKC) 100 UNITS/ML 12 UNITS SUB-Q (20:06)
[2020-12-21] MEDS: SERTRALINE HCL 25 MG TABLET PO (20:06)
[2020-12-21 20:23] LABS: Glucose Point of Care 117 mg/dl (65-105)
[2020-12-22] VITALS (15 sets, daily range): BP systolic 84–178; BP diastolic 46–83; PULSE 71–99; RESP 16–18; TEMP 36.2–36.8; O2SAT 96–98
[2020-12-22] MEDS: INSULIN GLARGINE (*BKC) 100 UNITS/ML 20 UNITS SUB-Q (07:38)
[2020-12-22] MEDS: INSULIN ASPART (*BKC) 100 UNITS/ML SUB-Q ×3 (07:39→16:50)
[2020-12-22] MEDS: SODIUM CHLORIDE 0.9% IV 1,000 ML 60 ML IV CONT (07:39)
[2020-12-22 07:49] LABS: Glucose Point of Care 109 mg/dl (65-105)
[2020-12-22] MEDS: SILVERGEL (ELTA) 45 ML 1 APPLIC TOPICAL (08:40)
[2020-12-22] MEDS: MAGNESIUM OXIDE 400 MG TABLET PO (08:41)
[2020-12-22] MEDS: FLUDROCORTISONE ACETATE 0.1 MG TABLET PO (08:41)
[2020-12-22] MEDS: GABAPENTIN 400 MG CAPSULE PO ×3 (08:41→16:53)
[2020-12-22] MEDS: CYANOCOBALAMIN 1,000 MCG TABLET 1000 MCG PO (08:41)
[2020-12-22] MEDS: metFORMIN HCL 500 MG TABLET 1000 MG PO ×2 (08:41→16:51)
[2020-12-22] MEDS: ASPIRIN 81 MG ENTERIC TABLET PO (08:41)
[2020-12-22] MEDS: MIDODRINE HCL 2.5 MG TABLET 5 MG PO ×3 (08:42→16:51)
[2020-12-22] MEDS: METOPROLOL TARTRATE 12.5 MG TABLET PO (08:42)
--- NOTE | 2020-12-22 09:17 | PM.IMPN ---
Progress Note: A&P Assessment and Plan (1) Orthostatic hypotension: Code(s): I95.1 - Orthostatic hypotension Status: Acute (2) Insulin dependent type 2 diabetes mellitus: Code(s): E11.9 - Type 2 diabetes mellitus without complications; Z79.4 - termination clerk (current) use of insulin Status: Acute (3) Chronic anemia: Code(s): D64.9 - Anemia, unspecified Status: Acute (4) Essential hypertension: Code(s): I10 - Essential (primary) hypertension Status: Acute (5) Hyperlipidemia: Code(s): E78.5 - Hyperlipidemia, unspecified Status: Chronic (6) Paroxysmal atrial fibrillation: Code(s): I48.0 - Paroxysmal atrial fibrillation Status: Chronic Additional Plan 65yo man history of CVA DM2 HTN CHF CAD AFib CKD, presenting 12/15 for low BP to 60/40. Seen by cardiology, presumed to have orthostatic hypotension related to diabetic autonomic dysfunction. Currently on midodrine and Florinef. Per cardiology, not on AC for AFib given frequent falls. Will discuss d/c timeline and final recs with cardiology. Time Spent With Patient Time with patient: less than 15 minutes Subjective Date/time seen: 12/22/20 09:17 no acute complaints resting comfortably in bed Review of Systems Review of Systems: All systems reviewed & are unremarkable except as noted in HPI and below Exam Const: General: no acute distress Neck: Neck: no JVD Resp: Effort & Inspection: normal respiratory effort Auscultation: clear to auscultation bilaterally Cardio: Rate: regular rate Rhythm: regular rhythm GI: GI Palp: Yes Soft to palpation and No Tenderness to palpation present (GI) Objective Data Vital Signs Vital Signs: Vital Signs - 24 hr 12/21/20 09:27 12/21/20 10:25 12/21/20 12:00 Temperature Pulse Rate 109 H 109 H Pulse Rate [At Rest After Therapy Session] 97 Pulse Rate [At Rest Prior to Therapy Session] 90 Pulse Rate [With Activity During Therapy Session] 93 Respiratory Rate 18 Blood Pressure 88/48 L Pulse Oximetry 97 12/21/20 14:00 12/21/20 16:00 12/21/20 20:00 Temperature 97.9 F 97.9 F Pulse Rate 80 85 83 Pulse Rate [At Rest After Therapy Session] Pulse Rate [At Rest Prior to Therapy Session] Pulse Rate [With Activity During Therapy Session] Respiratory Rate 16 16 Blood Pressure 168/72 H 168/72 H Pulse Oximetry 98 98 12/21/20 22:00 12/21/20 22:28 12/22/20 00:00 Temperature 97.8 F Pulse Rate 74 75 Pulse Rate [At Rest After Therapy Session] Pulse Rate [At Rest Prior to Therapy Session] Pulse Rate [With Activity During Therapy Session] Respiratory Rate 18 Blood Pressure 142/53 H 86/49 L Pulse Oximetry 98 12/22/20 04:00 12/22/20 06:00 12/22/20 08:42 Temperature 97.2 F L Pulse Rate 84 84 76 Pulse Rate [At Rest After Therapy Session] Pulse Rate [At Rest Prior to Therapy Session] Pulse Rate [With Activity During Therapy Session] Respiratory Rate 18 Blood Pressure 178/76 H Pulse Oximetry 96 Intake/Output Intake/Output: Intake & Output 12/19/20 12/20/20 12/21/20 12/22/20 23:59 23:59 23:59 23:59 Intake Total 2220 3200 2770 1890 Output Total 300 Balance 2220 3200 2470 1890 Meds/Results Medications: Active Medications Generic Name Dose Route Start Last Admin Trade Name Freq PRN Reason Stop Dose Admin Acetaminophen 650 mg 12/15/20 23:47 Acetaminophen 325 Mg Tablet PO Q4H PRN Mild Pain (1-3) Or Fever Aspirin 81 mg 12/16/20 09:00 12/22/20 08:41 Aspirin 81 Mg Enteric Tablet PO 81 mg DAILY NIKA Administration Atorvastatin Calcium 40 mg 12/15/20 23:55 12/21/20 20:05 Atorvastatin 40 Mg Tablet PO 40 mg HS NIKA Administration Cyanocobalamin 1,000 mcg 12/16/20 09:00 12/22/20 08:41 Cyanocobalamin 1,000 Mcg Tablet PO 1,000 mcg QAM NIKA Administration Dextrose 12.5 gm 12/15/20 23:46 Dextrose 50% 25 Gm/50 Ml Syringe IV PUSH PRN
--- NOTE | 2020-12-22 09:45 | PM.PNCARD ---
Progress Note: A&P Assessment and Plan (1) Orthostatic hypotension: Code(s): I95.1 - Orthostatic hypotension Status: Acute Assessment and Plan: longstanding orthostatic hypotension presumed secondary to diabetic autonomic dysfunction. Low blood pressure in this situation is more dangerous and high blood pressure Patient agreed to try the Florinef again. Daily BMP. I recommend trying midodrine t.i.d., and avoiding the supine position during the daytime hours waist high compression stockings (may need RX to a medical supply store); can try thigh-high Teds and abdominal binder while here. increase fluid and liberalize salt intake. Sometimes salt tablets are needed Avoid large meals, avoid standing after large meals Muscle squeezing while standing to improve venous return Try droxidopa? atomoxetine? Supine exercise; agree w/ PH Tx. Avoid bedreset; up in chair as much as possible to retrain nervous system. Will increase midodrine 5 mg p.o. t.i.d. Lorsartan has been discontinued (2) Syncope and collapse: Code(s): R55 - Syncope and collapse Status: Acute Assessment and Plan: Secondary to the above, no arrhythmias found (3) Essential hypertension: Code(s): I10 - Essential (primary) hypertension Status: Acute Assessment and Plan: patient has supine hypertension. (4) Paroxysmal atrial fibrillation: Code(s): I48.0 - Paroxysmal atrial fibrillation Status: Chronic Assessment and Plan: Carries a history of paroxysmal atrial fibrillation, though not has been demonstrated on his multiple hospitalizations at [facility] so apparently infrequent. Not a candidate for anticoagulation because of his frequent falls. (5) Hypokalemia: Code(s): E87.6 - Hypokalemia Status: Acute Assessment and Plan: Once again, additional potassium chloride some 40 mEq p.o. x1 Subjective Date/time seen: 12/22/20 09:45 Interval history: Follow-up visit in this 65-year-old man with: Problematic orthostatic hypotension which appears to be the result of autonomic dysfunction related to his longstanding diabetes. Patient has multiple frequent hospitalizations here with ketoacidosis and frequent consultations by our practice because of elevated troponin in this setting. Because of problematic orthostasis he has been taken off clonidine and started on midodrine. He is asymptomatic this morning but lying supine in bed. Orthostatic vital signs this morning not yet on the chart. Date of service 12/19/2020: He still dizzy upon standing but he thinks that he is stabilizing. No chest pain or shortness of breath. No unusual/significant headache Date of service 12/20/2020: Feels about the same. Blood pressure still significantly dropping upon standing. No chest pain or shortness of breath date of service 12/21/2020: No complaints other than still significantly orthostatic this morning. Systolic blood pressure declines approximately 90 mmHg. Date of service 12/22/2020: Still experiencing some positional dizziness but no syncope. Vital signs review shows one SBP measurement of 86 mmHg last evening. Review of Systems Constitutional: Constitutional: Reports weakness Eyes: Eyes: Reports no additional eye complaints ENT: Denies epistaxis Cardiovascular: Cardiovascular: Denies chest pain, Denies diaphoresis, Denies leg edema, Reports lightheadedness, Denies palpitations, Denies dyspnea and Denies dyspnea on exertion Respiratory: Respiratory: Denies dyspnea and Denies dyspnea on exertion Gastrointestinal: Gastrointestinal: Denies abdominal pain and Denies hematochezia Genitourinary: Genitourinary: Denies hematuria Musculoskeletal: Musculoskeletal: Reports abnormal gait and Reports arthralgias Integumentary/Breasts: Skin/Breast: Reports wounds ( ecchymosis around left eye) Neurologic: Reports abnormal gait, Denies behavioral patel
[2020-12-22 11:34] LABS: Glucose Point of Care 102 mg/dl (65-105)
[2020-12-22 12:12] LABS: Alanine Aminotransferase 21 U/L (4-50); Albumin Level 3.6 g/dL (3.5-5.1); Alkaline Phosphatase 103 U/L (38-126); Anion Gap 7 mmol/L (8-16); Aspartate Amino Transferase 35 U/L (17-59); Basophils Absolute Auto 0.1 K/mm3 (0.0-0.1); Basophils Percent Auto 0.9 % (0.2-1.2); Bilirubin,Total 0.5 mg/dL (0.2-1.3); Blood Urea Nitrogen 14 mg/dL (9-20); Calcium 8.6 mg/dL (8.4-10.2); Carbon Dioxide 30 mmol/L (22-30); Chloride 104 mmol/L (98-107); Eosinophils Absolute Auto 0.2 K/mm3 (0-0.3); Eosinophils Percent Auto 2.4 % (0-4.4); Estimated CRCL calculation 96 ml/min; Estimated Glomerular Filt Rate > 60; Glucose 123 mg/dL (65-110); Hematocrit 35.5 % (42.0-52.0); Hemoglobin 11.8 g/dL (14.0-18.0); Immature Granulocyte Absolute 0.01 K/mm3 (0.00-0.031); Immature Granulocyte Percent A 0.2 % (0-0.5); Lymphocytes Absolute Auto 1.88 K/mm3 (0.9-3.2); Lymphocytes Percent Auto 29.6 % (18.3-44.2); Mean Corpuscular HGB Conc 33.2 g/dl (32-36); Mean Corpuscular Hemoglobin 31.5 pg (26-34); Mean Corpuscular Volume 94.7 fl (80-100); Mean Platelet Volume 10.4 fl (7.4-10.4); Monocytes Absolute Auto 0.5 K/mm3 (0.1-0.6); Monocytes Percent Auto 7.1 % (2.6-8.5); Neutrophils Absolute Auto 3.8 K/mm3 (1.3-6.7); Neutrophils Percent Auto 59.8 % (45.5-73.1); Platelet Count Result 208 k/mm3 (150-375); Potassium 4.2 mmol/L (3.4-5.0); Red Blood Count 3.75 M/mm3 (4.6-6.20); Red Cell Distribution Width 14.2 % (11.5-14.5); Sodium 141 mmol/L (137-145); White Blood Count 6.4 K/mm3 (4.5-10.0)
[2020-12-22] MEDS: POTASSIUM CHLORIDE 20 MEQ TABLET.ER PO (13:22)
[2020-12-22 17:02] LABS: Glucose Point of Care 109 mg/dl (65-105)
[2020-12-22] MEDS: INSULIN GLARGINE (*BKC) 100 UNITS/ML 12 UNITS SUB-Q (20:55)
[2020-12-22] MEDS: SERTRALINE HCL 25 MG TABLET PO (21:00)
[2020-12-22] MEDS: ATORVASTATIN 40 MG TABLET PO (21:00)
[2020-12-22 21:19] LABS: Glucose Point of Care 161 mg/dl (65-105)
[2020-12-23] VITALS (13 sets, daily range): BP systolic 74–178; BP diastolic 35–154; PULSE 70–112; RESP 16–17; TEMP 36.1–36.7; O2SAT 97–98
[2020-12-23 05:30] LABS: Basophils Percent Auto 0.6 % (0.2-1.2); Eosinophils Absolute Auto 0.2 K/mm3 (0-0.3); Eosinophils Percent Auto 2.3 % (0-4.4); Hematocrit 34.4 % (42.0-52.0); Hemoglobin 11.4 g/dL (14.0-18.0); Immature Granulocyte Absolute 0.02 K/mm3 (0.00-0.031); Immature Granulocyte Percent A 0.3 % (0-0.5); Lymphocytes Absolute Auto 2.27 K/mm3 (0.9-3.2); Lymphocytes Percent Auto 32.5 % (18.3-44.2); Mean Corpuscular HGB Conc 33.1 g/dl (32-36); Mean Corpuscular Volume 96.6 fl (80-100); Mean Platelet Volume 10.1 fl (7.4-10.4); Monocytes Absolute Auto 0.5 K/mm3 (0.1-0.6); Monocytes Percent Auto 6.9 % (2.6-8.5); Neutrophils Percent Auto 57.4 % (45.5-73.1); Platelet Count Result 187 k/mm3 (150-375); Red Blood Count 3.56 M/mm3 (4.6-6.20); Red Cell Distribution Width 14.2 % (11.5-14.5)
[2020-12-23 07:08] LABS: Alanine Aminotransferase 19 U/L (4-50); Albumin Level 3.3 g/dL (3.5-5.1); Alkaline Phosphatase 114 U/L (38-126); Anion Gap 7 mmol/L (8-16); Aspartate Amino Transferase 30 U/L (17-59); Bilirubin,Total 0.2 mg/dL (0.2-1.3); Blood Urea Nitrogen 13 mg/dL (9-20); Calcium 8.4 mg/dL (8.4-10.2); Carbon Dioxide 29 mmol/L (22-30); Chloride 104 mmol/L (98-107); Estimated CRCL calculation 96 ml/min; Estimated Glomerular Filt Rate > 60; Glucose 96 mg/dL (65-110); Magnesium 1.9 mg/dL (1.6-2.3); Phosphorus 3.1 mg/dL (2.5-4.5); Potassium 3.5 mmol/L (3.4-5.0); Sodium 140 mmol/L (137-145)
[2020-12-23 07:37] LABS: Glucose Point of Care 95 mg/dl (65-105)
[2020-12-23] MEDS: INSULIN ASPART (*BKC) 100 UNITS/ML SUB-Q ×4 (07:53→16:46)
[2020-12-23] MEDS: INSULIN GLARGINE (*BKC) 100 UNITS/ML 20 UNITS SUB-Q (07:54)
[2020-12-23] MEDS: SILVERGEL (ELTA) 45 ML 1 APPLIC TOPICAL (07:58)
[2020-12-23] MEDS: FLUDROCORTISONE ACETATE 0.1 MG TABLET PO (07:58)
[2020-12-23] MEDS: metFORMIN HCL 500 MG TABLET 1000 MG PO ×2 (07:58→16:45)
[2020-12-23] MEDS: POTASSIUM CHLORIDE 20 MEQ TABLET.ER PO (07:59)
[2020-12-23] MEDS: MIDODRINE HCL 2.5 MG TABLET 5 MG PO ×2 (07:59→12:39)
[2020-12-23] MEDS: MAGNESIUM OXIDE 400 MG TABLET PO (07:59)
[2020-12-23] MEDS: GABAPENTIN 400 MG CAPSULE PO ×3 (07:59→16:45)
[2020-12-23] MEDS: ASPIRIN 81 MG ENTERIC TABLET PO (07:59)
[2020-12-23] MEDS: ENOXAPARIN 40 MG/0.4 ML SYRINGE SUB-Q (07:59)
[2020-12-23] MEDS: CYANOCOBALAMIN 1,000 MCG TABLET 1000 MCG PO (07:59)
[2020-12-23] MEDS: METOPROLOL TARTRATE 12.5 MG TABLET PO (07:59)
[2020-12-23 11:39] LABS: Glucose Point of Care 81 mg/dl (65-105)
--- NOTE | 2020-12-23 12:12 | PM.IMPN ---
Progress Note: A&P Assessment and Plan (1) Orthostatic hypotension: Code(s): I95.1 - Orthostatic hypotension Status: Acute Assessment and Plan: Appreciate cardiology note Midodrine added Patient has been started on fludrocortisone Continue to monitor Abdominal binder on Some improvement (2) Insulin dependent type 2 diabetes mellitus: Code(s): E11.9 - Type 2 diabetes mellitus without complications; Z79.4 - group home (current) use of insulin Status: Acute Assessment and Plan: Continue to monitor continue insulin (3) Chronic anemia: Code(s): D64.9 - Anemia, unspecified Status: Acute Assessment and Plan: Continue to monitor (4) Essential hypertension: Code(s): I10 - Essential (primary) hypertension Status: Acute Assessment and Plan: Continue to monitor He continues to get his losartan and his metoprolol (5) Hyperlipidemia: Code(s): E78.5 - Hyperlipidemia, unspecified Status: Chronic Assessment and Plan: Continue to monitor Follow-up in outpatient setting Continue statin (6) Paroxysmal atrial fibrillation: Code(s): I48.0 - Paroxysmal atrial fibrillation Status: Chronic Assessment and Plan: Rate controlled Stable Additional Plan discussed bedside with patient and cardiology. Understands that this is a difficult problem to resolve completely. Understands he will need to take precautions to manage it following discharge. Offered him to d/c home today, but prefers to stay one more day before he feels safe to go home, which we will do. Time Spent With Patient Time with patient: less than 15 minutes Subjective Date/time seen: 12/23/20 12:12 resting comfortably in bed would like to stay one more day. Review of Systems Review of Systems: All systems reviewed & are unremarkable except as noted in HPI and below Exam Const: General: no acute distress Neck: Neck: no JVD Resp: Effort & Inspection: normal respiratory effort Auscultation: clear to auscultation bilaterally Cardio: Rate: regular rate Rhythm: regular rhythm GI: Inspection: non-distended Objective Data Vital Signs Vital Signs: Vital Signs - 24 hr 12/22/20 14:00 12/22/20 16:00 12/22/20 20:00 Temperature 98.2 F Pulse Rate 73 72 75 Respiratory Rate 18 18 Blood Pressure 156/61 H 178/83 H Pulse Oximetry 98 97 12/22/20 20:53 12/22/20 22:00 12/22/20 22:25 Temperature 97.6 F Pulse Rate 74 Respiratory Rate 16 Blood Pressure 176/69 H 121/52 L Pulse Oximetry 97 98 12/23/20 00:00 12/23/20 04:00 12/23/20 05:54 Temperature 97.0 F L Pulse Rate 78 86 88 Respiratory Rate 16 Blood Pressure 178/68 H Pulse Oximetry 97 12/23/20 07:59 12/23/20 08:00 12/23/20 08:03 Temperature Pulse Rate 108 H 112 H Respiratory Rate Blood Pressure 140/68 133/94 H Pulse Oximetry 12/23/20 08:06 Temperature Pulse Rate Respiratory Rate Blood Pressure 74/35 L Pulse Oximetry Intake/Output Intake/Output: Intake & Output 12/20/20 12/21/20 12/22/20 12/23/20 23:59 23:59 23:59 23:59 Intake Total 3200 2770 2570 720 Output Total 300 Balance 3200 2470 2570 720 Meds/Results Medications: Active Medications Generic Name Dose Route Start Last Admin Trade Name Freq PRN Reason Stop Dose Admin Acetaminophen 650 mg 12/15/20 23:47 Acetaminophen 325 Mg Tablet PO Q4H PRN Mild Pain (1-3) Or Fever Aspirin 81 mg 12/16/20 09:00 12/23/20 07:59 Aspirin 81 Mg Enteric Tablet PO 81 mg DAILY NIKA Administration Atorvastatin Calcium 40 mg 12/15/20 23:55 12/22/20 21:00 Atorvastatin 40 Mg Tablet PO 40 mg HS NIKA Administration Cyanocobalamin 1,000 mcg 12/16/20 09:00 12/23/20 07:59 Cyanocobalamin 1,000 Mcg Tablet PO 1,000 mcg QAM NIKA Administration Dextrose 12.5 gm 12/15/20 23:46 Dextrose 50% 25 Gm/50 Ml Syringe IV PUSH PRN PRN Hypoglycemia P
--- NOTE | 2020-12-23 12:48 | PM.PNCARD ---
Progress Note: A&P Assessment and Plan (1) Orthostatic hypotension: Code(s): I95.1 - Orthostatic hypotension Status: Acute Assessment and Plan: longstanding orthostatic hypotension presumed secondary to diabetic autonomic dysfunction. Low blood pressure in this situation is more dangerous and high blood pressure Patient agreed to try the Florinef again. Daily BMP. I recommend trying midodrine t.i.d., and avoiding the supine position during the daytime hours waist high compression stockings (may need RX to a medical supply store); can try thigh-high Teds and abdominal binder while here. increase fluid and liberalize salt intake. Sometimes salt tablets are needed Avoid large meals, avoid standing after large meals Muscle squeezing while standing to improve venous return Try droxidopa? atomoxetine? Supine exercise; agree w/ PH Tx. Avoid bedreset; up in chair as much as possible to retrain nervous system. Increase midodrine to 10 mg p.o. t.i.d.. Lorsartan has been discontinued His abdominal binder was entirely too loose. I did tighten it today. Long discussion was had with the patient regarding the complexities of his condition. 5 minutes at least is recommended to wait in between weighing and sitting and sitting to standing (2) Syncope and collapse: Code(s): R55 - Syncope and collapse Status: Acute Assessment and Plan: Secondary to the above, no arrhythmias found (3) Essential hypertension: Code(s): I10 - Essential (primary) hypertension Status: Acute Assessment and Plan: patient has supine hypertension. (4) Paroxysmal atrial fibrillation: Code(s): I48.0 - Paroxysmal atrial fibrillation Status: Chronic Assessment and Plan: Carries a history of paroxysmal atrial fibrillation, though not has been demonstrated on his multiple hospitalizations at [facility] so apparently infrequent. Not a candidate for anticoagulation because of his frequent falls. (5) Hypokalemia: Code(s): E87.6 - Hypokalemia Status: Acute Assessment and Plan: Once again, additional potassium chloride some 40 mEq p.o. x1 Subjective Date/time seen: 12/23/20 12:48 Interval history: Follow-up visit in this 65-year-old man with: Problematic orthostatic hypotension which appears to be the result of autonomic dysfunction related to his longstanding diabetes. Patient has multiple frequent hospitalizations here with ketoacidosis and frequent consultations by our practice because of elevated troponin in this setting. Because of problematic orthostasis he has been taken off clonidine and started on midodrine. He is asymptomatic this morning but lying supine in bed. Orthostatic vital signs this morning not yet on the chart. Date of service 12/19/2020: He still dizzy upon standing but he thinks that he is stabilizing. No chest pain or shortness of breath. No unusual/significant headache Date of service 12/20/2020: Feels about the same. Blood pressure still significantly dropping upon standing. No chest pain or shortness of breath date of service 12/21/2020: No complaints other than still significantly orthostatic this morning. Systolic blood pressure declines approximately 90 mmHg. Date of service 12/22/2020: Still experiencing some positional dizziness but no syncope. Vital signs review shows one SBP measurement of 86 mmHg last evening. Date of service 12/23/2020: Overall no significant change. Still dizzy upon standing. No chest pain shortness of breath Review of Systems Constitutional: Constitutional: Reports weakness Eyes: Eyes: Reports no additional eye complaints ENT: Denies epistaxis Cardiovascular: Cardiovascular: Denies chest pain, Denies diaphoresis, Denies leg edema, Reports lightheadedness, Denies palpitations, Denies dyspnea and Denies dyspnea on exertion Respiratory: Respiratory: Denies dyspnea and Denies dy
[2020-12-23] MEDS: POTASSIUM CHLORIDE 20 MEQ TABLET 40 MEQ PO (13:56)
[2020-12-23 16:00] LABS: Glucose Point of Care 278 mg/dl (65-105)
[2020-12-23] MEDS: ATORVASTATIN 40 MG TABLET PO (20:27)
[2020-12-23] MEDS: SERTRALINE HCL 25 MG TABLET PO (20:27)
[2020-12-23 20:42] LABS: Glucose Point of Care 88 mg/dl (65-105)
[2020-12-24] VITALS (17 sets, daily range): BP systolic 78–180; BP diastolic 41–75; PULSE 67–120; RESP 18–20; TEMP 35.9–36.9; O2SAT 92–99
[2020-12-24 02:19] LABS: Glucose Point of Care 123 mg/dl (65-105)
[2020-12-24 05:12] LABS: Basophils Absolute Auto 0.1 K/mm3 (0.0-0.1); Basophils Percent Auto 0.8 % (0.2-1.2); Eosinophils Absolute Auto 0.2 K/mm3 (0-0.3); Eosinophils Percent Auto 2.4 % (0-4.4); Hematocrit 33.5 % (42.0-52.0); Hemoglobin 10.9 g/dL (14.0-18.0); Immature Granulocyte Absolute 0.01 K/mm3 (0.00-0.031); Immature Granulocyte Percent A 0.2 % (0-0.5); Lymphocytes Absolute Auto 2.31 K/mm3 (0.9-3.2); Lymphocytes Percent Auto 36.2 % (18.3-44.2); Mean Corpuscular HGB Conc 32.5 g/dl (32-36); Mean Corpuscular Hemoglobin 31.7 pg (26-34); Mean Corpuscular Volume 97.4 fl (80-100); Mean Platelet Volume 10.7 fl (7.4-10.4); Monocytes Absolute Auto 0.5 K/mm3 (0.1-0.6); Monocytes Percent Auto 7.7 % (2.6-8.5); Neutrophils Absolute Auto 3.4 K/mm3 (1.3-6.7); Neutrophils Percent Auto 52.7 % (45.5-73.1); Platelet Count Result 185 k/mm3 (150-375); Red Blood Count 3.44 M/mm3 (4.6-6.20); Red Cell Distribution Width 14.5 % (11.5-14.5); White Blood Count 6.4 K/mm3 (4.5-10.0)
[2020-12-24 05:26] LABS: Alanine Aminotransferase 19 U/L (4-50); Albumin Level 3.4 g/dL (3.5-5.1); Alkaline Phosphatase 109 U/L (38-126); Anion Gap 9 mmol/L (8-16); Aspartate Amino Transferase 30 U/L (17-59); Bilirubin,Total < 0.1 mg/dL (0.2-1.3); Blood Urea Nitrogen 15 mg/dL (9-20); Calcium 8.5 mg/dL (8.4-10.2); Carbon Dioxide 29 mmol/L (22-30); Chloride 103 mmol/L (98-107); Estimated CRCL calculation 78 ml/min; Estimated Glomerular Filt Rate > 60; Glucose 176 mg/dL (65-110); Magnesium 1.8 mg/dL (1.6-2.3); Phosphorus 3.1 mg/dL (2.5-4.5); Potassium 3.6 mmol/L (3.4-5.0); Sodium 141 mmol/L (137-145)
[2020-12-24 07:47] LABS: Glucose Point of Care 161 mg/dl (65-105)
[2020-12-24] MEDS: CYANOCOBALAMIN 1,000 MCG TABLET 1000 MCG PO (08:06)
[2020-12-24] MEDS: metFORMIN HCL 500 MG TABLET 1000 MG PO ×2 (08:06→16:53)
[2020-12-24] MEDS: FLUDROCORTISONE ACETATE 0.1 MG TABLET PO (08:06)
[2020-12-24] MEDS: MAGNESIUM OXIDE 400 MG TABLET PO (08:06)
[2020-12-24] MEDS: MIDODRINE HCL 10 MG TABLET PO ×3 (08:06→16:53)
[2020-12-24] MEDS: POTASSIUM CHLORIDE 20 MEQ TABLET.ER PO (08:06)
[2020-12-24] MEDS: ASPIRIN 81 MG ENTERIC TABLET PO (08:06)
[2020-12-24] MEDS: GABAPENTIN 400 MG CAPSULE PO ×3 (08:07→16:53)
[2020-12-24] MEDS: SILVERGEL (ELTA) 45 ML 1 APPLIC TOPICAL (08:07)
[2020-12-24] MEDS: ENOXAPARIN 40 MG/0.4 ML SYRINGE SUB-Q (08:07)
[2020-12-24] MEDS: METOPROLOL TARTRATE 12.5 MG TABLET PO (08:08)
[2020-12-24] MEDS: INSULIN GLARGINE (*BKC) 100 UNITS/ML 20 UNITS SUB-Q (08:09)
[2020-12-24] MEDS: INSULIN ASPART (*BKC) 100 UNITS/ML SUB-Q ×3 (08:09→16:53)
--- NOTE | 2020-12-24 09:15 | PM.DS ---
DS: Admitting Diagnosis Discharge Date 12/24 Admitting Diagnosis low bp DS: Discharge Diagnosis Discharge Diagnosis (1) Orthostatic hypotension: Code(s): I95.1 - Orthostatic hypotension Status: Chronic DS: Summary Hospital Course Reason for hospitalization: hypotension Hospital Course: Patient is a 65-year-old male presenting to [facility] on December 15 for low blood pressure. He has visiting nurses at home, and on the day of admission blood pressure was taken at 60/40. He was asymptomatic, although some reports of not being totally coherent at time of admission. He has a known history of orthostatic hypotension and several episodes of hypotension and hypertension associated with this condition. Most recently he had a hospitalization related to a fall which left him with contusions and left sinus face. Patient has been seen by Cardiology, and several medications have been tried including Florinef, and might have been. There is a stable higher blood pressure with these medications, in addition to reducing blood pressure medications. Losartan has been stopped, and clonidine and hydrochlorothiazide have been held while he is here. Lengthy discussions with patient and with Cardiology, the consensus is that this is a condition which will be very hard to rectify completely. Best treatment will be understanding the condition, and changing behavior to prevent symptoms, especially since he has had a fall related to this in the past. Discussed with him the driving is not safe, in addition to being in any scenario where he is opening himself up to a fall. Discussed discharge medication regimen with Cardiology, they recommend continuing regimen that he has been on for the last few days, namely stopping losartan, hydrochlorothiazide, clonidine, continuing Florinef and midodrine, continue metoprolol. We understand that this will result in a potential high blood pressure at home, and patient encouraged to take blood pressures at home and discuss with primary care if poorly controlled, however at this point risk of serious adverse event from hypotension seems to outweigh hypertension risk. Close outpatient follow-up with Cardiology for trach care. Time spent discussing smoking cessation with patient: 3 to 10 minutes Status at Discharge Functional status at discharge: independent ambulation Overall status at discharge: patient is not back to baseline Time Spent with Patient Time attestation: Total time spent providing and/or coordinating discharge services: Time spent: Less than 30 minutes Exam Const: General: no acute distress Neck: Neck: no JVD Resp: Effort & Inspection: normal respiratory effort Auscultation: clear to auscultation bilaterally Cardio: Rate: regular rate Rhythm: regular rhythm GI: GI Palp: Yes Soft to palpation and No Tenderness to palpation present (GI) DS: Data Data Completed and Pending Labs on day of discharge: Labs from last 24 hours 12/24/20 12/24/20 12/24/20 07:44 04:19 04:18 WBC 6.4 RBC 3.44 L Hgb 10.9 L Hct 33.5 L MCV 97.4 MCH 31.7 MCHC 32.5 RDW 14.5 Plt Count 185 MPV 10.7 H Immature Gran % (Auto) 0.2 Neut % (Auto) 52.7 Lymph % (Auto) 36.2 [place] % (Auto) 7.7 Eos % (Auto) 2.4 Baso % (Auto) 0.8 Lymph # (Auto) 2.31 [place] # (Auto) 0.5 Eos # (Auto) 0.2 Baso # (Auto) 0.1 Abs Immat Gran (auto) 0.01 Absolute Neuts (auto) 3.4 Absolute Nucleated RBC 0.0 Nucleated RBC % 0.0 Sodium 141 Potassium 3.6 Chloride 103 Carbon Dioxide 29 Anion Gap 9 BUN 15 Creatinine 1.00 Estim Creat Clear Calc 78 Estimated GFR > 60 Glucose 176 H POC Capillary Glucose 161 H Calcium 8.5 Phosphorus 3.1 Magnesium 1.8 Total Bilirubin < 0.1 L AST 30 ALT 19 Alkaline Phosphatase 109 Total Protein 6.0 L Albumin 3.4 L 12/24/20 12/23/20 12/23/20 02:16 20:26 15:57 WBC
--- NOTE | 2020-12-24 10:06 | PCNWS ---
Weekly nutritional screen. Patient is tolerating current diet with adequate intake. No weight loss reported. No nutritional needs at this time.
[2020-12-24 11:52] LABS: Glucose Point of Care 176 mg/dl (65-105)
--- NOTE | 2020-12-24 12:05 | PM.IMPN ---
Progress Note: A&P Assessment and Plan (1) Orthostatic hypotension: Code(s): I95.1 - Orthostatic hypotension Status: Chronic Additional Plan patient is slowly improving, but discussed with him that we have offered about as much therapy that we can safely give while keeping in mind other possible effects of therapy incl bp. ok to go home, but asking to stay one more day to be comfortable 100%. So will send him tomorrow morning. Time Spent With Patient Time with patient: less than 15 minutes Subjective Date/time seen: 12/24/20 12:05planning on discharging patient today; but he says he wants to stay in hospital another day Review of Systems Review of Systems: All systems reviewed & are unremarkable except as noted in HPI and below Exam Const: General: no acute distress Neck: Neck: no JVD Resp: Effort & Inspection: normal respiratory effort Auscultation: clear to auscultation bilaterally Cardio: Rate: regular rate Rhythm: regular rhythm GI: Inspection: non-distended Objective Data Vital Signs Vital Signs: Vital Signs - 24 hr 12/23/20 14:00 12/23/20 16:00 12/23/20 20:00 Temperature 97.8 F 98.1 F Pulse Rate 70 74 78 Respiratory Rate 16 17 Blood Pressure 152/62 H 162/79 H Pulse Oximetry 97 98 12/23/20 20:42 12/23/20 21:23 12/24/20 00:00 Temperature 98.1 F Pulse Rate 82 82 Respiratory Rate 17 Blood Pressure 162/79 H 84/47 L Pulse Oximetry 98 12/24/20 03:01 12/24/20 04:00 12/24/20 08:00 Temperature 97.8 F 96.7 F L Pulse Rate 79 82 75 Respiratory Rate 18 18 Blood Pressure 126/46 L 87/48 L Pulse Oximetry 98 99 12/24/20 08:08 12/24/20 09:01 12/24/20 09:02 Temperature 96.9 F L 96.9 F L Pulse Rate 88 120 H 89 Respiratory Rate 20 20 Blood Pressure 78/41 L 176/75 H Pulse Oximetry 99 96 Intake/Output Intake/Output: Intake & Output 12/21/20 12/22/20 12/23/20 12/24/20 23:59 23:59 23:59 23:59 Intake Total 2770 2570 2080 1362 Output Total 300 300 Balance 2470 2570 1780 1362 Meds/Results Medications: Active Medications Generic Name Dose Route Start Last Admin Trade Name Freq PRN Reason Stop Dose Admin Acetaminophen 650 mg 12/15/20 23:47 Acetaminophen 325 Mg Tablet PO Q4H PRN Mild Pain (1-3) Or Fever Aspirin 81 mg 12/16/20 09:00 12/24/20 08:06 Aspirin 81 Mg Enteric Tablet PO 81 mg DAILY NIKA Administration Atorvastatin Calcium 40 mg 12/15/20 23:55 12/23/20 20:27 Atorvastatin 40 Mg Tablet PO 40 mg HS NIKA Administration Cyanocobalamin 1,000 mcg 12/16/20 09:00 12/24/20 08:06 Cyanocobalamin 1,000 Mcg Tablet PO 1,000 mcg QAM NIKA Administration Dextrose 12.5 gm 12/15/20 23:46 Dextrose 50% 25 Gm/50 Ml Syringe IV PUSH PRN PRN Hypoglycemia Protocol Enoxaparin Sodium 40 mg 12/23/20 09:00 12/24/20 08:07 Enoxaparin 40 Mg/0.4 Ml Syringe SUB-Q 40 mg DAILY NIKA Administration Fludrocortisone Acetate 0.1 mg 12/18/20 08:00 12/24/20 08:06 Fludrocortisone Acetate 0.1 Mg Tablet PO 0.1 mg DAILY@0800 NIKA Administration Gabapentin 400 mg 12/16/20 09:00 12/24/20 11:59 Gabapentin 400 Mg Capsule PO 400 mg TID NIKA Administration Glucagon 1 mg 12/15/20 23:46 Glucagon For Inj 1 Mg Vial IM PRN PRN Hypoglycemia Protocol Glucose 15 gm 12/15/20 23:46 Glucose Oral Gel 15 Gm Of Glucse In 37.5 Gm Tube PO PRN PRN Hypoglycemia Protocol Dextrose 1,000 mls @ 100 mls/hr 12/15/20 23:46 Dextrose 5% 1,000 Ml IVPB PRN PRN Hypoglycemia Protocol Insulin Aspart 4 - 8 units 12/17/20 08:00 12/24/20 11:53 Insulin Aspart (*Bkc) 100 Units/Ml SUB-Q Not Given TIDWM NIKA Protocol Insulin Aspart 3 units 12/18/20 08:00 12/24/20 11:55 Insulin Aspart (*Bkc) 100 Units/Ml SUB-Q 3 units TIDWM NIKA Administration Insulin Glargine 20 units 12/18/20 09:00 12/24/20 08:09 Insulin Glargine (*Bkc) 100 Units/Ml S
--- NOTE | 2020-12-24 14:10 | PM.PNCARD ---
Progress Note: A&P Assessment and Plan (1) Orthostatic hypotension: Code(s): I95.1 - Orthostatic hypotension Status: Acute Assessment and Plan: longstanding orthostatic hypotension presumed secondary to diabetic autonomic dysfunction. Low blood pressure in this situation is more dangerous and high blood pressure Patient agreed to try the Florinef again. Daily BMP. I recommend trying midodrine t.i.d., and avoiding the supine position during the daytime hours waist high compression stockings (may need RX to a medical supply store); can try thigh-high Teds and abdominal binder while here. increase fluid and liberalize salt intake. Sometimes salt tablets are needed Avoid large meals, avoid standing after large meals Muscle squeezing while standing to improve venous return Try droxidopa? atomoxetine? Supine exercise; agree w/ PH Tx. Avoid bedreset; up in chair as much as possible to retrain nervous system. Increase midodrine to 10 mg p.o. t.i.d.. Lorsartan has been discontinued Long discussion was had with the patient regarding the complexities of his condition. 5 minutes at least is recommended to wait in between weighing and sitting and sitting to standing (2) Syncope and collapse: Code(s): R55 - Syncope and collapse Status: Acute Assessment and Plan: Secondary to the above, no arrhythmias found (3) Essential hypertension: Code(s): I10 - Essential (primary) hypertension Status: Acute Assessment and Plan: patient has supine hypertension. (4) Paroxysmal atrial fibrillation: Code(s): I48.0 - Paroxysmal atrial fibrillation Status: Chronic Assessment and Plan: Carries a history of paroxysmal atrial fibrillation, though not has been demonstrated on his multiple hospitalizations at [facility] so apparently infrequent. Not a candidate for anticoagulation because of his frequent falls. (5) Hypokalemia: Code(s): E87.6 - Hypokalemia Status: Acute Assessment and Plan: KCL 40 mg p.o. x1 Subjective Date/time seen: 12/24/20 14:10 Interval history: Follow-up visit in this 65-year-old man with: Problematic orthostatic hypotension which appears to be the result of autonomic dysfunction related to his longstanding diabetes. Patient has multiple frequent hospitalizations here with ketoacidosis and frequent consultations by our practice because of elevated troponin in this setting. Because of problematic orthostasis he has been taken off clonidine and started on midodrine. He is asymptomatic this morning but lying supine in bed. Orthostatic vital signs this morning not yet on the chart. Date of service 12/19/2020: He still dizzy upon standing but he thinks that he is stabilizing. No chest pain or shortness of breath. No unusual/significant headache Date of service 12/24/2020: Dizzy still upon standing. He is sitting up to a chair though. No chest pain or shortness of breath Review of Systems Constitutional: Constitutional: Reports weakness Eyes: Eyes: Reports no additional eye complaints ENT: Denies epistaxis Cardiovascular: Cardiovascular: Denies chest pain, Denies diaphoresis, Denies leg edema, Reports lightheadedness, Denies palpitations, Denies dyspnea and Denies dyspnea on exertion Respiratory: Respiratory: Denies dyspnea and Denies dyspnea on exertion Gastrointestinal: Gastrointestinal: Denies abdominal pain and Denies hematochezia Genitourinary: Genitourinary: Denies hematuria Musculoskeletal: Musculoskeletal: Reports abnormal gait and Reports arthralgias Integumentary/Breasts: Skin/Breast: Reports wounds ( ecchymosis around left eye) Neurologic: Reports abnormal gait, Denies behavioral changes and Reports weakness Psychiatric: Psychiatric: Denies behavioral changes Endocrine: Endocrine: Denies palpitations Exam Narrative: Napping on my arrival, easily aroused. Const: General:
[2020-12-24] MEDS: POTASSIUM CHLORIDE 20 MEQ TABLET 40 MEQ PO (14:58)
[2020-12-24 16:44] LABS: Glucose Point of Care 147 mg/dl (65-105)
[2020-12-24] MEDS: SERTRALINE HCL 25 MG TABLET PO (20:36)
[2020-12-24] MEDS: ATORVASTATIN 40 MG TABLET PO (20:36)
[2020-12-24 21:20] LABS: Glucose Point of Care 98 mg/dl (65-105)
[2020-12-25] VITALS (9 sets, daily range): BP systolic 95–191; BP diastolic 46–83; PULSE 67–114; RESP 18–20; TEMP 36–36.1; O2SAT 96–99
[2020-12-25 08:04] LABS: Glucose Point of Care 176 mg/dl (65-105)
[2020-12-25] MEDS: GABAPENTIN 400 MG CAPSULE PO ×2 (08:18→12:00)
[2020-12-25] MEDS: MAGNESIUM OXIDE 400 MG TABLET PO (08:18)
[2020-12-25] MEDS: INSULIN GLARGINE (*BKC) 100 UNITS/ML 20 UNITS SUB-Q (08:23)
[2020-12-25] MEDS: INSULIN ASPART (*BKC) 100 UNITS/ML SUB-Q ×2 (08:24→11:57)
[2020-12-25] MEDS: ASPIRIN 81 MG ENTERIC TABLET PO (08:25)
[2020-12-25] MEDS: metFORMIN HCL 500 MG TABLET 1000 MG PO (08:25)
[2020-12-25] MEDS: FLUDROCORTISONE ACETATE 0.1 MG TABLET PO (08:25)
[2020-12-25] MEDS: CYANOCOBALAMIN 1,000 MCG TABLET 1000 MCG PO (08:25)
[2020-12-25] MEDS: ENOXAPARIN 40 MG/0.4 ML SYRINGE SUB-Q (08:25)
[2020-12-25] MEDS: METOPROLOL TARTRATE 12.5 MG TABLET PO (08:28)
[2020-12-25] MEDS: POTASSIUM CHLORIDE 20 MEQ TABLET.ER PO (08:28)
[2020-12-25] MEDS: MIDODRINE HCL 10 MG TABLET PO ×2 (08:28→12:00)
[2020-12-25] MEDS: SILVERGEL (ELTA) 45 ML 1 APPLIC TOPICAL (08:29)
--- NOTE | 2020-12-25 09:55 | PM.PNCARD ---
Progress Note: A&P Assessment and Plan (1) Orthostatic hypotension: Code(s): I95.1 - Orthostatic hypotension Status: Acute Assessment and Plan: longstanding orthostatic hypotension presumed secondary to diabetic autonomic dysfunction. Low blood pressure in this situation is more dangerous and high blood pressure Patient agreed to try the Florinef again. Daily BMP. I recommend trying midodrine t.i.d., and avoiding the supine position during the daytime hours waist high compression stockings (may need RX to a medical supply store); can try thigh-high Teds and abdominal binder while here. increase fluid and liberalize salt intake. Sometimes salt tablets are needed Avoid large meals, avoid standing after large meals Muscle squeezing while standing to improve venous return Try droxidopa? atomoxetine? Supine exercise; agree w/ PH Tx. Avoid bedreset; up in chair as much as possible to retrain nervous system. Continue midodrine, Florinef Lorsartan has been discontinued Long discussion was had with the patient regarding the complexities of his condition. 5 minutes at least is recommended to wait in between weighing and sitting and sitting to standing (2) Syncope and collapse: Code(s): R55 - Syncope and collapse Status: Acute Assessment and Plan: Secondary to the above, no arrhythmias found (3) Essential hypertension: Code(s): I10 - Essential (primary) hypertension Status: Acute Assessment and Plan: patient has supine hypertension. (4) Paroxysmal atrial fibrillation: Code(s): I48.0 - Paroxysmal atrial fibrillation Status: Chronic Assessment and Plan: Carries a history of paroxysmal atrial fibrillation, though not has been demonstrated on his multiple hospitalizations at [facility] so apparently infrequent. Not a candidate for anticoagulation because of his frequent falls. (5) Hypokalemia: Code(s): E87.6 - Hypokalemia Status: Acute Assessment and Plan: Replaced Additional Plan 65-year-old man with: Challenging situation with problematic orthostasis due to autonomic dysfunction related to his diabetes. I am going to stop his losartan at this time. Obviously as we withdraw antihypertensives his blood pressure will continue to climb and this will have to be Accepted as the necessary consequence of trying to keep him from having orthostatic related syncope. Patient while supine in bed is perfectly comfortable and in good spirits Subjective Date/time seen: 12/25/20 09:55 Interval history: Follow-up visit in this 65-year-old man with: Problematic orthostatic hypotension which appears to be the result of autonomic dysfunction related to his longstanding diabetes. Patient has multiple frequent hospitalizations here with ketoacidosis and frequent consultations by our practice because of elevated troponin in this setting. Because of problematic orthostasis he has been taken off clonidine and started on midodrine. He is asymptomatic this morning but lying supine in bed. Orthostatic vital signs this morning not yet on the chart. Date of service 12/19/2020: He still dizzy upon standing but he thinks that he is stabilizing. No chest pain or shortness of breath. No unusual/significant headache Date of service 12/24/2020: Dizzy still upon standing. He is sitting up to a chair though. No chest pain or shortness of breath Date of service 12/25/2020: He did get up and walk a little bit yesterday. He was dizzy upon standing but no syncope. Was able to sit down on 1 occasion in which he felt dizziness being more severe. Review of Systems Constitutional: Constitutional: Reports weakness Eyes: Eyes: Reports no additional eye complaints ENT: Denies epistaxis Cardiovascular: Cardiovascular: Denies chest pain, Denies diaphoresis, Denies leg edema, Reports lightheadedness, Denies palpitations, Denies
[2020-12-25 12:00] LABS: Glucose Point of Care 191 mg/dl (65-105)
== END 2020-12-25 13:35 | disposition home health service (06) | DRG 74 ==
LOC: ANHED 16:35 → ANH2MED 19:00
PROVIDERS: Hospitalist; Internal Medicine; Internal Medicine Cardiovascular Disease; Internal Medicine Critical Care Medicine; Physician Assistant; Admitting Provider Family Medicine; Emergency Provider Emergency Medicine; PCP Family Medicine; Visit Provider Internal Medicine
DX: E11.43 Type 2 diabetes mellitus with diabetic autonomic (poly)neuropathy (principal); I13.0 Hypertensive heart and chronic kidney disease with heart failure and stage 1 through stage 4 chronic kidney disease, or unspecified chronic kidney disease; I50.32 Chronic diastolic (congestive) heart failure; I95.1 Orthostatic hypotension; I48.0 Paroxysmal atrial fibrillation; D64.9 Anemia, unspecified; I25.10 Atherosclerotic heart disease of native coronary artery without angina pectoris; E11.42 Type 2 diabetes mellitus with diabetic polyneuropathy; E11.22 Type 2 diabetes mellitus with diabetic chronic kidney disease; N18.30 Chronic kidney disease, stage 3 unspecified; E78.5 Hyperlipidemia, unspecified; E87.6 Hypokalemia; I25.2 Old myocardial infarction; Z79.4 Long term (current) use of insulin; Z79.899 Other long term (current) drug therapy; Z86.73 Personal history of transient ischemic attack (TIA), and cerebral infarction without residual deficits; Z91.81 History of falling; Z98.42 Cataract extraction status, left eye; Z98.41 Cataract extraction status, right eye; Z96.1 Presence of intraocular lens
CPT/HCPCS: 36415; 80048; 80053; 80076; 82533; 82948; 83036; 83735; 84100; 84484; 85025; 93005; 96361; 97110; 97116; 97161; 97165; 97535; 99285; A9270; J0834; J1650; J1815; J7030; J7040

== ENCOUNTER 2020-12-27 19:05 | Inpatient (IN) | payer MEDICARE, MEDICAID, SELFPAY ==
[2020-12-27] VITALS (24 sets, daily range): BP systolic 129–169; BP diastolic 60–81; PULSE 73–93; RESP 9–20; TEMP 36.8; O2SAT 92–100
--- NOTE | ~2020-12-27 | CT_ITS ---
EXAMINATION: CT brain wo con DATE: 12/27/2020 20:03 INDICATION: Minor head injury. Ground level fall. TECHNIQUE: Computed tomography (CT) of the head was performed without intravenous contrast. The dose- length product was 681.00 mGy-cm. Automated exposure control and iterative reconstruction technique w ere employed. COMPARISON: CT dated 12/13/2020 FINDINGS: There is left frontal scalp swelling. There is agenesis of the corpus callosum with chronic white matter loss in the iqyagwhb-dmpiforr-bdxnynolg regions. There are scattered mild periventricul ar and subcortical white matter changes, most likely related to small vessel ischemic disease (microa ngiopathy). No acute intracranial hemorrhage, infarction, mass or mass effect. Basilar cisterns are p atent. Paranasal sinuses and mastoids are pneumatized. No depressed skull fractures. IMPRESSION: 1. No acute intracranial abnormality. No significant interval change. Reviewed, dictated and finalized at location A.
--- NOTE | ~2020-12-27 | CT_ITS ---
EXAMINATION: CT brain wo con INDICATION: Sudden vision loss COMPARISON: 12/30/2020 TECHNIQUE: Standard unenhanced head CT. The dose-length product (DLP) was 681.00 mGy-cm. The mA was a djusted according to patient size. Iterative reconstruction technique was employed. FINDINGS: There is no acute intraparenchymal hemorrhage. No evidence of mass lesion. No evidence of a cute infarction. There is mild periventricular and subcortical hypodensity probably related to small vessel ischemic disease. There is mild prominence of the sulci and ventricles related to cerebral atr ophy. Intracranial calcified cerebral atherosclerosis is noted. There are no extra-axial collections. 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 There is no mass effect or midline shift. Changes in the globes are likely from ocular lens surgery. The visualized sinuses and mastoid air cells are well aerated. IMPRESSION: 1. No acute intracranial abnormality. 2. Age related findings. Reviewed, dictated and finalized at location B. [employer]
--- NOTE | ~2020-12-27 | CT_ITS ---
EXAMINATION: CT cervical spine wo con DATE: 12/27/2020 20:03 INDICATION: Neck pain after trauma. TECHNIQUE: Computed tomography (CT) of the cervical spine was performed without intravenous contrast. The dose-length product was 532 mGy-cm. Automated exposure control and iterative reconstruction tech nique were employed. COMPARISON: CT dated 10/30/2019 FINDINGS: There is advanced degenerative disc disease and endplate degenerative change at C3-4 throug h C6-7. No significant change from prior examinations allowing for technique. No acute fracture or tr aumatic malalignment. There is moderate multilevel uncinate degenerative change. Lung apices are unre markable. No significant paraspinal soft tissue abnormality. There is carotid atherosclerosis. Thyroi d gland is unremarkable. IMPRESSION: 1. No acute abnormality of the cervical spine. 2: Severe cervical spondylosis. Reviewed, dictated and finalized at location A.
--- NOTE | ~2020-12-27 | CT_ITS ---
EXAMINATION: CT brain wo con INDICATION: Dizziness COMPARISON: 12/27/2020 TECHNIQUE: Standard unenhanced head CT. The dose-length product (DLP) was 681.00 mGy-cm. The mA was a djusted according to patient size. Iterative reconstruction technique was employed. FINDINGS: There is no acute intraparenchymal hemorrhage. No evidence of mass lesion. No evidence of a cute infarction. There is mild periventricular and subcortical hypodensity probably related to small vessel ischemic disease. 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 There is mild promi nence of the sulci and ventricles related to cerebral atrophy. Intracranial calcified cerebral athero sclerosis is noted. There are no extra-axial collections. There is no mass effect or midline shift. C hanges in the globes are likely from ocular lens surgery. The visualized sinuses and mastoid air cell s are well aerated. IMPRESSION: 1. No acute intracranial abnormality. 2. Age related findings. Reviewed, dictated and finalized at location B.
--- NOTE | 2020-12-27 19:38 | PC.NURSE ---
Pt arrives here c ems s/p glf at home. pt wearing c-collar applied by EMS for neck pain 05/06. pt lives at home and has frequent falls. seen last 2 days ago for same.
[2020-12-27] MEDS: SODIUM CHLORIDE 0.9% IV 1,000 ML 999 ML IV CONT ×2 (20:36→21:25)
[2020-12-27 20:44] LABS: Basophils Percent Auto 0.5 % (0.2-1.2); Eosinophils Absolute Auto 0.1 K/mm3 (0-0.3); Eosinophils Percent Auto 1.6 % (0-4.4); Hematocrit 31.9 % (42.0-52.0); Hemoglobin 10.3 g/dL (14.0-18.0); Immature Granulocyte Absolute 0.02 K/mm3 (0.00-0.031); Immature Granulocyte Percent A 0.3 % (0-0.5); Lymphocytes Percent Auto 21.8 % (18.3-44.2); Mean Corpuscular HGB Conc 32.3 g/dl (32-36); Mean Corpuscular Hemoglobin 31.8 pg (26-34); Mean Corpuscular Volume 98.5 fl (80-100); Mean Platelet Volume 10.3 fl (7.4-10.4); Monocytes Absolute Auto 0.5 K/mm3 (0.1-0.6); Monocytes Percent Auto 7.5 % (2.6-8.5); Neutrophils Absolute Auto 4.4 K/mm3 (1.3-6.7); Neutrophils Percent Auto 68.3 % (45.5-73.1); Platelet Count Result 165 k/mm3 (150-375); Red Blood Count 3.24 M/mm3 (4.6-6.20); Red Cell Distribution Width 14.3 % (11.5-14.5); White Blood Count 6.4 K/mm3 (4.5-10.0)
[2020-12-27 21:00] LABS: Alanine Aminotransferase 18 U/L (4-50); Albumin Level 3.4 g/dL (3.5-5.1); Alkaline Phosphatase 105 U/L (38-126); Anion Gap 12 mmol/L (8-16); Aspartate Amino Transferase 26 U/L (17-59); Bilirubin,Total 0.2 mg/dL (0.2-1.3); Blood Urea Nitrogen 28 mg/dL (9-20); Calcium 8.6 mg/dL (8.4-10.2); Carbon Dioxide 26 mmol/L (22-30); Chloride 100 mmol/L (98-107); Estimated CRCL calculation 50 ml/min; Estimated Glomerular Filt Rate 44; Glucose 371 mg/dL (65-110); Potassium 4.9 mmol/L (3.4-5.0); Sodium 138 mmol/L (137-145)
--- NOTE | 2020-12-27 21:44 | ED.GENADULT ---
HPI - General Adult General Chief complaint: Fall Stated complaint: fall Time Seen by Provider: 12/27/20 19:16 History of Present Illness HPI narrative: Patient is a 65-year-old male who presents the ER with reports of fall at home. He stood up from stable and was walking when he passed out and struck his face on the ground. She endorses neck pain. No numbness or tingling or weakness to the upper or lower extremities. Denies headache or change in vision. Patient has history of autonomic dysfunction from uncontrolled diabetes. He reports he has been taking his midodrine and his insulin at home however his blood sugars quite high which leads me to believe he is noncompliant. Patient has history of noncompliance. He spent more days in the hospital than at home over the last 6 weeks. He refuses to go to a ch[facility] but also refuses to take care of himself. Related Data Home Medications Medication Instructions Recorded Confirmed gabapentin 400 mg PO TID 01/08/19 12/28/20 cyanocobalamin (vitamin B-12) 1,000 mcg PO QAM 12/06/20 12/28/20 metformin 1,000 mg PO BID 12/11/20 12/28/20 potassium chloride [K-Tab] 20 meq PO DAILY@0800 12/15/20 12/28/20 Lantus U-100 Insulin 30 unit SUBCUT QAM 12/28/20 12/28/20 Allergies Allergy/AdvReac Type Severity Reaction Status Date / Time No Known Allergies Allergy Verified 12/28/20 01:27 Review of Systems Review of Systems: All systems reviewed & are unremarkable except as noted in HPI and below Constitutional: Constitutional: Denies chills, Denies fever(s) and Denies weakness ENT: Denies nasal congestion and Denies sore throat Cardiovascular: Cardiovascular: Denies chest pain, Denies rapid heart rate and Denies radiating jaw, neck or arm pain Respiratory: Respiratory: Denies cough and Denies dyspnea Gastrointestinal: Gastrointestinal: Denies abdominal pain, Denies nausea and Denies vomiting Musculoskeletal: Comments: Neck pain Neurologic: Reports syncope, Denies headache(s), Denies focal weakness and Denies numbness [facility] Past Medical History Medical History (Updated 12/28/20 @ 06:55 by Benton Zavala MD) Arthritis CAD (coronary artery disease) Negative stress test November 2018 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 Diabetic retinopathy S/p retinal surgery Diastolic dysfunction Noted on prior echocardiogram but most recent echocardiogram demonstrating hyperdynamic left ventricle with EF greater than 70% with no mention of diastolic dysfunction Essential hypertension History of angina Hyperlipidemia Kidney stones NSTEMI (non-ST elevated myocardial infarction) With chronic troponin elevation Orthostatic hypotension Paroxysmal atrial fibrillation Not on anticoagulation due to high has bled score/high fall risk Peripheral neuropathy Surgical History Surgical History History of cholecystectomy History of loop recorder patient states that it no longer works. Status post cataract extraction of both eyes with insertion of intraocular lens Family History Family History Sibling Hypertension Father Polycystic kidney disease Colon cancer Diabetes mellitus Prostate carcinoma Mother Cerebrovascular accident CHF (congestive heart failure) Diabetes mellitus Acute myocardial infarction Other Corpus callosum agenesis Social History Social History Social History: He is and lives alone in an apartment complex for seniors. He does not drive due to
--- NOTE | 2020-12-27 22:11 | PC.NURSE ---
C-collar removed by this RN after verbal instruction from Dr. Zavala.
[2020-12-27 23:50] LABS: Anion Gap 7 mmol/L (8-16); Blood Urea Nitrogen 29 mg/dL (9-20); Calcium 8.4 mg/dL (8.4-10.2); Carbon Dioxide 29 mmol/L (22-30); Chloride 102 mmol/L (98-107); Estimated CRCL calculation 61 ml/min; Estimated Glomerular Filt Rate 55; Glucose 336 mg/dL (65-110); Potassium 4.8 mmol/L (3.4-5.0); Sodium 138 mmol/L (137-145)
[2020-12-28] VITALS (11 sets, daily range): BP systolic 72–182; BP diastolic 45–86; PULSE 65–119; RESP 13–18; TEMP 36.2–36.8; O2SAT 97–100; BMI 28.4
--- NOTE | 2020-12-28 01:33 | ADMGEN ---
This patient, Jorge Alberto Cortez, was admitted to [facility] Surg Room 332-02 at 0130. Patient/family oriented to hospital policies and general routines including ID bracelet, bed and alarms, visiting hours, pain management, procedures, bathroom and other care routines, personal items, smoking policy, room service/diet, and visiting hours. Information on how to activate the Rapid Response Team has been discussed. Patient/Family are encouraged to report perceived risks to care and to ask questions if they do not understand what they are told or what they should do.
[2020-12-28] MEDS: SODIUM CHLORIDE 0.9% IV 1,000 ML 125 ML IV CONT ×3 (01:49→20:47)
--- NOTE | 2020-12-28 05:12 | PM.IMHP ---
H&P: HPI History of Present Illness Date/Time: 12/28/20 05:12 Chief Complaint: Syncope Narrative: This is a 65-year-old male with past medical history significant for chronic orthostatic these some secondary to autonomic dysregulation secondary to type 2 diabetes mellitus, dyslipidemia, peripheral neuropathy. Patient was just recently discharged from the hospital for same reason he had been having syncopal episodes falling at home with multiple repetitive trauma to the head. Patient was brought in today after he had a syncopal episode while he was standing in the kitchen and reach out to for a cabinet to open the door and he has no recollections of events after this, a neighbord happen to witness and EMS was called and patient was brought to the emergency room. Patient states that he has been in his usual state of health he denies any fevers, rigors, chills, cough, sputum production, shortness of breath, chest pain, PND ,orthopnea, leg swelling. Preliminary workup has been essentially nonrevealing. Review of Systems Review of Systems: Syncope and collapse Constitutional: Constitutional: Denies chills, Denies fatigue, Denies fever(s), Denies lethargy, Denies malaise and Denies weakness Eyes: Eyes: Denies change in vision, Denies diplopia, Denies floaters, Denies loss of vision, Denies seeing flashes and Denies spots in vision ENT: Denies dysphagia, Denies vertigo, Denies dizziness, Denies nasal congestion, Denies nasal discharge, Denies nasal obstruction and Denies odynophagia Cardiovascular: Cardiovascular: Denies chest pain with activity, Denies diaphoresis, Reports syncope, Denies irregular heart rhythm, Denies claudication, Denies leg edema, Denies lightheadedness, Denies radiating jaw, neck or arm pain, Denies palpitations, Denies dyspnea and Denies dyspnea on exertion Respiratory: Respiratory: Denies chest congestion, Denies cough, Denies dyspnea and Denies wheezing Gastrointestinal: Gastrointestinal: Denies abdominal pain, Denies dyspepsia, Denies diarrhea, Denies nausea and Denies vomiting Genitourinary: Genitourinary: Reports no additional male genitourinary complaints and Reports as per HPI Musculoskeletal: Musculoskeletal: Denies arthralgias and Denies muscle weakness Integumentary/Breasts: Skin/Breast: Denies rash Neurologic: Reports dizziness, Reports syncope, Denies focal weakness and Denies Sensory deficit (Neuro) Psychiatric: Psychiatric: Reports no additional psychiatric complaints and Reports as per HPI Endocrine: Endocrine: Reports no additional endocrine complaints and Reports as per HPI Hematologic/Lymphatic: Hematologic/Lymphatic: Reports no additional hematologic/lymphatic complaints and Reports as per HPI Allergic/Immunologic: Allergic/Immunologic: Reports no additional allergic/immunologic complaints and Reports as per HPI [facility] Past Medical History Medical History (Updated 12/28/20 @ 05:23 by Hermann Ware MD) Arthritis CAD (coronary artery disease) Negative stress test November 2018 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 Diabetic retinopathy S/p retinal surgery Diastolic dysfunction Noted on prior echocardiogram but most recent echocardiogram demonstrating hyperdynamic left ventricle with EF greater than 70% with no mention of diastolic dysfunction Essential hypertension History of angina Hyperlipidemia Kidney stones NSTEMI (non-ST elevated myocardial infarction) With chronic troponin elevation Orthostatic hypotension Paroxysmal atrial fibrillation Not on anticoagulation due to high has bled score/high fall risk Peripheral neuropathy Surgical History Surgical History (R
[2020-12-28 08:01] LABS: Glucose Point of Care 328 mg/dl (65-105)
[2020-12-28] MEDS: INSULIN ASPART (*BKC) 100 UNITS/ML 7 UNITS SUB-Q ×3 (09:16→17:20)
[2020-12-28] MEDS: INSULIN ASPART (*BKC) 100 UNITS/ML SUB-Q ×2 (09:16→12:42)
[2020-12-28] MEDS: MIDODRINE HCL 10 MG TABLET PO ×3 (09:17→17:20)
[2020-12-28] MEDS: INSULIN GLARGINE (*BKC) 100 UNITS/ML 30 UNITS SUB-Q (09:18)
[2020-12-28] MEDS: GABAPENTIN 400 MG CAPSULE PO ×3 (09:18→17:21)
[2020-12-28] MEDS: POTASSIUM CHLORIDE 20 MEQ TABLET.ER PO (09:18)
[2020-12-28] MEDS: MAGNESIUM OXIDE 400 MG TABLET PO (09:18)
[2020-12-28] MEDS: ASPIRIN 81 MG ENTERIC TABLET PO (09:18)
[2020-12-28] MEDS: CYANOCOBALAMIN 1,000 MCG TABLET 1000 MCG PO (09:18)
[2020-12-28] MEDS: FLUDROCORTISONE ACETATE 0.1 MG TABLET PO (09:18)
[2020-12-28] MEDS: METOPROLOL TARTRATE 12.5 MG TABLET PO (09:19)
--- NOTE | 2020-12-28 09:34 | ECG_ITS ---
Measurements Intervals [place] Rate: 65 P: 56 NM: 188 QRS: 80 QRSD: 97 T: 216 QT: 462 QTc: 483 Interpretive Statements SINUS RHYTHM ATRIAL PREMATURE COMPLEX LEFT VENTRICULAR HYPERTROPHY AND ST-T CHANGE ST-T WAVE ABNORMALITY IN DIFFUSE LEADS- CONSIDER ISCHEMIA ABNORMAL ECG Electronically Signed On 12-28-2020 14:23:45 CDT by Colin Moreland D.O.
[2020-12-28 10:07] LABS: Basophils Percent Auto 0.6 % (0.2-1.2); Eosinophils Absolute Auto 0.1 K/mm3 (0-0.3); Eosinophils Percent Auto 2.5 % (0-4.4); Hematocrit 33.2 % (42.0-52.0); Hemoglobin 10.9 g/dL (14.0-18.0); Immature Granulocyte Absolute 0.01 K/mm3 (0.00-0.031); Immature Granulocyte Percent A 0.2 % (0-0.5); Lymphocytes Absolute Auto 1.61 K/mm3 (0.9-3.2); Lymphocytes Percent Auto 30.9 % (18.3-44.2); Mean Corpuscular HGB Conc 32.8 g/dl (32-36); Mean Corpuscular Hemoglobin 32.1 pg (26-34); Mean Corpuscular Volume 97.6 fl (80-100); Mean Platelet Volume 10.3 fl (7.4-10.4); Monocytes Absolute Auto 0.3 K/mm3 (0.1-0.6); Monocytes Percent Auto 5.8 % (2.6-8.5); Neutrophils Absolute Auto 3.1 K/mm3 (1.3-6.7); Platelet Count Result 168 k/mm3 (150-375); White Blood Count 5.2 K/mm3 (4.5-10.0)
[2020-12-28 10:32] LABS: Alanine Aminotransferase 17 U/L (4-50); Albumin Level 3.5 g/dL (3.5-5.1); Alkaline Phosphatase 107 U/L (38-126); Anion Gap 11 mmol/L (8-16); Aspartate Amino Transferase 23 U/L (17-59); Bilirubin,Total 0.3 mg/dL (0.2-1.3); Blood Urea Nitrogen 27 mg/dL (9-20); Calcium 8.7 mg/dL (8.4-10.2); Carbon Dioxide 27 mmol/L (22-30); Chloride 99 mmol/L (98-107); Estimated CRCL calculation 78 ml/min; Estimated Glomerular Filt Rate > 60; Glucose 384 mg/dL (65-110); Potassium 3.8 mmol/L (3.4-5.0); Sodium 137 mmol/L (137-145)
[2020-12-28 12:06] LABS: Glucose Point of Care 218 mg/dl (65-105)
--- NOTE | 2020-12-28 15:08 | PM.CNCAR ---
Assessment and Plan Assessment and plan (1) Syncope due to orthostatic hypotension: Code(s): I95.1 - Orthostatic hypotension Status: Acute Assessment and Plan: Patient clearly relates history of position change with prodromal symptoms consistent with vasovagal syncope and longstanding history of well documented orthostatic hypotension presumably secondary to autonomic dysfunction related to diabetes mellitus. He remains on high-dose midodrine 10 mg t.i.d. and Florinef 0.1 mg daily. Patient claims compliance with medications. He indicates he drinks approximately 1.5-2 L fluid daily in addition to food. Creatinine elevated 1.6 and mild BUN elevation suggestive of a degree of intravascular volume depletion of presentation. Not associated with hypoglycemia as he reports. Extremely difficult and refractory management to longstanding orthostatic hypotension. Discussed alternative options such as Droxidopa and I explained I have no personal experience with this medication. I would not recommend adding to midodrine and Florinef given high risk for severe supine hypertension but perhaps as an alternative to midodrine. This medication is non formulary at this institution. I do not it would be in this patient's best interest nor safe to discharge on left supportive medication with the intention to start a new medication as an outpatient if we are unable to initiate while hospitalized. Patient agrees with this assessment. He claims he was wearing compression stockings earlier in the day prior to presentation but took them off for some reason and was not wearing them at the time of syncope. It is also apparent he did not take his time getting up as counseled multiple times. He has been counseled on the importance of taking his time waiting several minutes prior to ambulation getting his bearings compliance with compression stockings, pushing fluid intake monitor blood sugars which has been problematic in the past. Check orthostatic vital signs with IV fluids. May continue today plan to discontinue tomorrow if orthostasis improved. We need this documented to understand improvement with fundamental support. This is an extremely difficult situation refractory to medical management and with a history of noncompliance recommended therapies although he claims to been compliant for the less than 24 hours subsequent admissions since his last discharge. We need to monitor his response to therapy. Place compression stockings thigh-high to be worn during the day and with any ambulation. Orthostatics with vital signs. At this time, hydrated overnight, recheck orthostatic vital signs in a.m. and if orthostatic hypotension remains severe and symptomatic will discuss addition of and or substitution with Droxidopa. (2) Acute on chronic kidney failure: Qualifiers: Acute renal failure type: unspecified Chronic kidney disease stage: unspecified stage Qualified Code(s): N17.9 - Acute kidney failure, unspecified; N18.9 - Chronic kidney disease, unspecified Code(s): N17.9 - Acute kidney failure, unspecified; N18.9 - Chronic kidney disease, unspecified Status: Acute Assessment and Plan: Improved with IV fluids. Continue to monitor by routine labs check BMP in a.m.. (3) Hypertension associated with type 2 diabetes mellitus: Code(s): E11.59 - Type 2 diabetes mellitus with other circulatory complications; I15.2 - Hypertension secondary to endocrine disorders Status: Acute Assessment and Plan: Supine hypertension significant but acceptable. We discussed the dangers with additional therapy for his orthostatic hypotension and that symptomatic hypotension associated with syncope poses a greatest risk to his safety. We discussed the risk associated with uncontrolled hypertension, however, risk for fall with head injury and potential catastrophic complications must be avoided. (4) Paroxysmal atrial fibrillation: Code(s):
[2020-12-28 17:06] LABS: Glucose Point of Care 125 mg/dl (65-105)
--- NOTE | 2020-12-28 18:42 | PM.IMPN ---
Progress Note: A&P Assessment and Plan (1) Orthostatic hypotension: Code(s): I95.1 - Orthostatic hypotension Status: Acute (2) Hyperlipidemia: Qualifiers: Hyperlipidemia type: unspecified Qualified Code(s): E78.5 - Hyperlipidemia, unspecified Code(s): E78.5 - Hyperlipidemia, unspecified Status: Chronic (3) H/O: HTN (hypertension): Code(s): Z86.79 - Personal history of other diseases of the circulatory system Status: Chronic (4) Paroxysmal atrial fibrillation: Code(s): I48.0 - Paroxysmal atrial fibrillation Status: Chronic (5) Chronic anemia: Code(s): D64.9 - Anemia, unspecified Status: Chronic (6) Syncope and collapse: Code(s): R55 - Syncope and collapse Status: Acute (7) Acute on chronic kidney failure: Qualifiers: Acute renal failure type: unspecified Chronic kidney disease stage: unspecified stage Qualified Code(s): N17.9 - Acute kidney failure, unspecified; N18.9 - Chronic kidney disease, unspecified Code(s): N17.9 - Acute kidney failure, unspecified; N18.9 - Chronic kidney disease, unspecified Status: Acute (8) Diabetes mellitus: Qualifiers: Diabetes mellitus type: type 2 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 Syncopal episode possibly secondary to orthostatic hypotension given history of autonomic dysregulation complication of diabetes mellitus: -patient was significantly orthostatic positive vitals -patient reports compliance to midodrine and Florinef which was resumed -he was recently discharged with the above-mentioned medications -EKG was obtained which remained normal sinus rhythm with frequent premature atrial complexes -cardiology consult 2. AFib history: -as per cardiology review, patient does not have any EKG evidence of atrial fibrillation. He is currently on telemetry and we are observing the telemetry -cardiology recommends that we discontinue metoprolol. As and risks of continuing metoprolol outweigh the benefits. -patient is not on anticoagulation however is on aspirin. He is not on anticoagulation due to history of frequent falls -it would be however worthwhile discussing this with Cardiology, that patient when ready to be discharged, should be discharged on event monitor. 3. ANDREW: -patient noted to have ANDREW possibly secondary to dehydration -IV fluids to be continued at this time -creatinine improved from prior Time Spent With Patient Time with patient: 25 - 35 minutes Subjective Date/time seen: 12/28/20 18:42 Interval history: 65-year-old male with past medical history significant for hypertension, hyperlipidemia, type 2 diabetes mellitus, peripheral neuropathy and chronic orthostatic hypotension secondary to autonomic dysregulation presented after having experienced a syncopal episode. Patient was recently admitted for similar concerns and was discharged on 12/25. On arrival he was noted to have a creatinine slightly elevated to 1.6 which after fluid administration has normalized to 1.0. His orthostatic vitals were checked and he was noted to be severely orthostatic. However his supine blood pressure remains extremely elevated possibly because of the use of midodrine and Florinef together. However at this time it is very important that he continue with these medications because otherwise he would experience worsening orthostatic hypotension. Cardiology has been brought on
[2020-12-28] MEDS: ATORVASTATIN 40 MG TABLET PO (20:38)
[2020-12-28] MEDS: SERTRALINE HCL 25 MG TABLET PO (20:38)
[2020-12-28] MEDS: INSULIN GLARGINE (*BKC) 100 UNITS/ML 18 UNITS SUB-Q (20:38)
[2020-12-28 21:33] LABS: Glucose Point of Care 128 mg/dl (65-105)
[2020-12-29] VITALS (11 sets, daily range): BP systolic 124–205; BP diastolic 64–80; PULSE 66–94; RESP 16–18; TEMP 36.1–38.1; O2SAT 96–100
[2020-12-29] MEDS: SODIUM CHLORIDE 0.9% IV 1,000 ML 125 ML IV CONT ×3 (05:08→21:27)
[2020-12-29 06:00] LABS: Basophils Absolute Auto 0.1 K/mm3 (0.0-0.1); Eosinophils Absolute Auto 0.2 K/mm3 (0-0.3); Hematocrit 33.2 % (42.0-52.0); Hemoglobin 11.5 g/dL (14.0-18.0); Immature Granulocyte Absolute 0.02 K/mm3 (0.00-0.031); Immature Granulocyte Percent A 0.3 % (0-0.5); Lymphocytes Absolute Auto 1.97 K/mm3 (0.9-3.2); Lymphocytes Percent Auto 33.2 % (18.3-44.2); Mean Corpuscular HGB Conc 34.6 g/dl (32-36); Mean Corpuscular Hemoglobin 31.9 pg (26-34); Mean Corpuscular Volume 92.2 fl (80-100); Mean Platelet Volume 10.5 fl (7.4-10.4); Monocytes Absolute Auto 0.5 K/mm3 (0.1-0.6); Monocytes Percent Auto 8.6 % (2.6-8.5); Neutrophils Absolute Auto 3.2 K/mm3 (1.3-6.7); Neutrophils Percent Auto 53.9 % (45.5-73.1); Platelet Count Result 190 k/mm3 (150-375); Red Cell Distribution Width 13.5 % (11.5-14.5); White Blood Count 5.9 K/mm3 (4.5-10.0)
[2020-12-29 06:28] LABS: Alanine Aminotransferase 15 U/L (4-50); Albumin Level 3.5 g/dL (3.5-5.1); Alkaline Phosphatase 108 U/L (38-126); Anion Gap 6 mmol/L (8-16); Aspartate Amino Transferase 26 U/L (17-59); Bilirubin,Total 0.4 mg/dL (0.2-1.3); Blood Urea Nitrogen 18 mg/dL (9-20); Calcium 8.6 mg/dL (8.4-10.2); Carbon Dioxide 30 mmol/L (22-30); Chloride 102 mmol/L (98-107); Estimated CRCL calculation 96 ml/min; Estimated Glomerular Filt Rate > 60; Glucose 157 mg/dL (65-110); Potassium 3.4 mmol/L (3.4-5.0); Sodium 138 mmol/L (137-145)
[2020-12-29 08:08] LABS: Glucose Point of Care 137 mg/dl (65-105)
[2020-12-29] MEDS: INSULIN GLARGINE (*BKC) 100 UNITS/ML 30 UNITS SUB-Q (08:22)
[2020-12-29] MEDS: INSULIN ASPART (*BKC) 100 UNITS/ML 7 UNITS SUB-Q ×3 (08:23→16:56)
[2020-12-29] MEDS: FLUDROCORTISONE ACETATE 0.1 MG TABLET PO (08:26)
[2020-12-29] MEDS: POTASSIUM CHLORIDE 20 MEQ TABLET.ER PO (08:27)
[2020-12-29] MEDS: MIDODRINE HCL 10 MG TABLET PO ×3 (08:27→16:56)
[2020-12-29] MEDS: GABAPENTIN 400 MG CAPSULE PO ×3 (08:28→16:56)
[2020-12-29] MEDS: CYANOCOBALAMIN 1,000 MCG TABLET 1000 MCG PO (08:28)
[2020-12-29] MEDS: ASPIRIN 81 MG ENTERIC TABLET PO (08:28)
[2020-12-29] MEDS: MAGNESIUM OXIDE 400 MG TABLET PO (08:29)
[2020-12-29] MEDS: METOPROLOL TARTRATE 12.5 MG TABLET PO (08:30)
--- NOTE | 2020-12-29 10:45 | PC.NURSE ---
On 12/29/20, the student, [Josemanuel Sharma ], provided care and completed [facility] documentation on this patient. I have reviewed the student's documentation and agree with the findings.
[2020-12-29 11:15] LABS: Glucose Point of Care 168 mg/dl (65-105)
--- NOTE | 2020-12-29 14:15 | PM.PNCARD ---
Progress Note: A&P Assessment and Plan (1) Syncope due to orthostatic hypotension: Code(s): I95.1 - Orthostatic hypotension Status: Acute Assessment and Plan: Patient clearly relates history of position change with prodromal symptoms consistent with vasovagal syncope and longstanding history of well documented orthostatic hypotension presumably secondary to autonomic dysfunction related to diabetes mellitus. He remains on high-dose midodrine 10 mg t.i.d. and Florinef 0.1 mg daily. Patient claims compliance with medications. He indicates he drinks approximately 1.5-2 L fluid daily in addition to food. Creatinine elevated 1.6 and mild BUN elevation suggestive of a degree of intravascular volume depletion of presentation. Not associated with hypoglycemia as he reports. Extremely difficult and refractory management to longstanding orthostatic hypotension. Discussed alternative options such as Droxidopa and I explained I have no personal experience with this medication. I would not recommend adding to midodrine and Florinef given high risk for severe supine hypertension but perhaps as an alternative to midodrine. This medication is non formulary at this institution. I do not it would be in this patient's best interest nor safe to discharge on left supportive medication with the intention to start a new medication as an outpatient if we are unable to initiate while hospitalized. Patient agrees with this assessment. He claims he was wearing compression stockings earlier in the day prior to presentation but took them off for some reason and was not wearing them at the time of syncope. It is also apparent he did not take his time getting up as counseled multiple times. He has been counseled on the importance of taking his time waiting several minutes prior to ambulation getting his bearings compliance with compression stockings, pushing fluid intake monitor blood sugars which has been problematic in the past. Check orthostatic vital signs with IV fluids. Place compression stockings thigh-high to be worn during the day and with any ambulation. Patient best served with referral to Neurology at [place] given severe persistent orthostatic hypotension likely secondary to autonomic dysfunction related to diabetes mellitus and neurocardiogenic syncope. There is little else that can be done at this institution for him. Again discussed alternative therapy such as Droxidopa yet are limited experience with this therapy and questionable benefit be on his present regimen and lack of availability limit fundamental change to his regimen at this time. Patient verbalized understanding. Defer to primary service whether he needs to be transferred as an inpatient or very prompt referral as an outpatient which is unlikely to happen. Bilateral compression stockings to above the knees, abdominal binder with ambulation, counseled pt to sit or stand for at least 3 minutes to ensure stability, ambulate with extreme caution and push hydration at least 3-4L free water daily until seen by Neurology at [place]. (2) Acute on chronic kidney failure: Qualifiers: Acute renal failure type: unspecified Chronic kidney disease stage: unspecified stage Qualified Code(s): N17.9 - Acute kidney failure, unspecified; N18.9 - Chronic kidney disease, unspecified Code(s): N17.9 - Acute kidney failure, unspecified; N18.9 - Chronic kidney disease, unspecified Status: Acute Assessment and Plan: Resolved with IV fluids. Continue to monitor. (3) Hypertension associated with type 2 diabetes mellitus: Code(s): E11.59 - Type 2 diabetes mellitus with other circulatory complications; I15.2 - Hypertension secondary to endocrine disorders Status: Acute Assessment and Plan: Supine hypertension significant but acceptable. We again discussed the dangers with additional therapy for his orthostatic hypotension and that symptomatic hypotension associated wit
--- NOTE | 2020-12-29 14:50 | PM.IMPN ---
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 Diabetes mellitus complication status: with kidney complications Diabetes mellitus complication detail: with chronic kidney disease Chronic kidney disease stage: stage 3 (moderate) Qualified Code(s): E11.22 - Type 2 diabetes mellitus with diabetic chronic kidney disease; N18.3 - Chronic kidney disease, stage 3 (moderate); Z79.4 - rn long term care (current) use of insulin Code(s): E11.9 - Type 2 diabetes mellitus without complications Status: Chronic (4) Hyperlipidemia: Qualifiers: Hyperlipidemia type: unspecified Qualified Code(s): E78.5 - Hyperlipidemia, unspecified Code(s): E78.5 - Hyperlipidemia, unspecified Status: Chronic (5) Chronic anemia: Code(s): D64.9 - Anemia, unspecified Status: Chronic (6) Syncope and collapse: Code(s): R55 - Syncope and collapse Status: Acute (7) Acute on chronic kidney failure: Qualifiers: Acute renal failure type: unspecified Chronic kidney disease stage: unspecified stage Qualified Code(s): N17.9 - Acute kidney failure, unspecified; N18.9 - Chronic kidney disease, unspecified Code(s): N17.9 - Acute kidney failure, unspecified; N18.9 - Chronic kidney disease, unspecified Status: Acute (8) Chronic kidney disease: Qualifiers: Chronic kidney disease stage: stage 3 (moderate) Qualified Code(s): N18.3 - Chronic kidney disease, stage 3 (moderate) Code(s): N18.9 - Chronic kidney disease, unspecified Status: Chronic (9) Syncope due to orthostatic hypotension: Code(s): I95.1 - Orthostatic hypotension Status: Acute (10) Fever: Qualifiers: Fever type: unspecified Qualified Code(s): R50.9 - Fever, unspecified Code(s): R50.9 - Fever, unspecified Status: Acute Additional Plan 1. Syncopal episode possibly secondary to orthostatic hypotension given history of autonomic dysregulation complication of diabetes mellitus: -patient was significantly orthostatic positive vitals -patient reports compliance to midodrine and Florinef which was resumed -he was recently discharged with the above-mentioned medications -EKG was obtained which remained normal sinus rhythm with frequent premature atrial complexes -cardiology consult 2. AFib history: -as per cardiology review, patient does not have any EKG evidence of atrial fibrillation. He is currently on telemetry and we are observing the telemetry -cardiology recommends that we discontinue metoprolol. As and risks of continuing metoprolol outweigh the benefits. -patient is not on anticoagulation however is on aspirin. He is not on anticoagulation due to history of frequent falls -it would be however worthwhile discussing this with Cardiology, that patient when ready to be discharged, should be discharged on event monitor. 3. ANDREW-resolved: -patient noted to have ANDREW possibly secondary to dehydration -IV fluids to be continued at this time -creatinine improved from prior 4. New onset fever: - Patient with fever of 100.6 - no other symptoms reported - will get CBC, BMP, Blood cx, ESR and CRP. - AM labs to be followed as well. - will hold off on Abx at this time and follow closely Time Spent With Patient Time with patient: 15 - 25 minutes Subjective Date/time seen: 12/29/20 14:50 Interval history: 65-year-old male with past medical history significant for hypertension, hyperlipidemia, type 2 diabetes mellitus, peripheral neuropathy and chronic orthostatic hypotension secondary to autonomic dysregulation presented after having experienced a syncopal episode. Patient w
[2020-12-29] MEDS: ACETAMINOPHEN 325 MG TABLET 650 MG PO (14:57)
[2020-12-29 16:48] LABS: Glucose Point of Care 128 mg/dl (65-105)
[2020-12-29 17:43] LABS: Basophils Absolute Auto 0.1 K/mm3 (0.0-0.1); Basophils Percent Auto 0.8 % (0.2-1.2); Eosinophils Absolute Auto 0.2 K/mm3 (0-0.3); Eosinophils Percent Auto 3.3 % (0-4.4); Hematocrit 40.1 % (42.0-52.0); Immature Granulocyte Absolute 0.01 K/mm3 (0.00-0.031); Immature Granulocyte Percent A 0.2 % (0-0.5); Lymphocytes Absolute Auto 1.86 K/mm3 (0.9-3.2); Mean Corpuscular HGB Conc 32.4 g/dl (32-36); Mean Corpuscular Volume 98.8 fl (80-100); Mean Platelet Volume 10.3 fl (7.4-10.4); Monocytes Absolute Auto 0.4 K/mm3 (0.1-0.6); Monocytes Percent Auto 6.7 % (2.6-8.5); Neutrophils Absolute Auto 3.9 K/mm3 (1.3-6.7); Platelet Count Result 206 k/mm3 (150-375); Red Blood Count 4.06 M/mm3 (4.6-6.20); Red Cell Distribution Width 14.3 % (11.5-14.5); White Blood Count 6.4 K/mm3 (4.5-10.0)
[2020-12-29 18:04] LABS: Alanine Aminotransferase 20 U/L (4-50); Albumin Level 5.3 g/dL (3.5-5.1); Alkaline Phosphatase 121 U/L (38-126); Anion Gap 11 mmol/L (8-16); Aspartate Amino Transferase 36 U/L (17-59); Bilirubin,Total 0.5 mg/dL (0.2-1.3); Blood Urea Nitrogen 17 mg/dL (9-20); CRP < 0.5 mg/dL (<1.0); Calcium 8.7 mg/dL (8.4-10.2); Carbon Dioxide 25 mmol/L (22-30); Chloride 104 mmol/L (98-107); Estimated CRCL calculation 78 ml/min; Estimated Glomerular Filt Rate > 60; Glucose 101 mg/dL (65-110); Potassium 3.5 mmol/L (3.4-5.0); Sodium 140 mmol/L (137-145)
[2020-12-29 20:36] LABS: Erythrocyte Sedimentation Rate 71 mm/hr (0-20)
[2020-12-29] MEDS: INSULIN GLARGINE (*BKC) 100 UNITS/ML 18 UNITS SUB-Q (20:41)
[2020-12-29] MEDS: SERTRALINE HCL 25 MG TABLET PO (20:41)
[2020-12-29] MEDS: ATORVASTATIN 40 MG TABLET PO (20:41)
[2020-12-29 20:51] LABS: Glucose Point of Care 157 mg/dl (65-105)
[2020-12-30] VITALS (7 sets, daily range): BP systolic 131–191; BP diastolic 56–88; PULSE 72–90; RESP 16–18; TEMP 36.2–36.3; O2SAT 98–100
--- NOTE | 2020-12-30 00:46 | PC.NURSE ---
224: call placed to Maureen Aguirre to notify her of patients blood pressure and if any new orders needed - no answer 0: called Dr Ware to notify her of patients orthostatic blood pressure readings - no answer or return call.
[2020-12-30 06:07] LABS: Basophils Absolute Auto 0.1 K/mm3 (0.0-0.1); Basophils Percent Auto 0.9 % (0.2-1.2); Eosinophils Absolute Auto 0.2 K/mm3 (0-0.3); Eosinophils Percent Auto 3.6 % (0-4.4); Hematocrit 34.1 % (42.0-52.0); Hemoglobin 11.7 g/dL (14.0-18.0); Lymphocytes Percent Auto 34.4 % (18.3-44.2); Mean Corpuscular HGB Conc 34.3 g/dl (32-36); Mean Corpuscular Volume 93.2 fl (80-100); Mean Platelet Volume 10.3 fl (7.4-10.4); Monocytes Absolute Auto 0.4 K/mm3 (0.1-0.6); Monocytes Percent Auto 7.6 % (2.6-8.5); Neutrophils Percent Auto 53.5 % (45.5-73.1); Platelet Count Result 192 k/mm3 (150-375); Red Blood Count 3.66 M/mm3 (4.6-6.20); Red Cell Distribution Width 13.7 % (11.5-14.5); White Blood Count 5.5 K/mm3 (4.5-10.0)
[2020-12-30 06:16] LABS: Alanine Aminotransferase 17 U/L (4-50); Albumin Level 3.2 g/dL (3.5-5.1); Alkaline Phosphatase 103 U/L (38-126); Anion Gap 6 mmol/L (8-16); Aspartate Amino Transferase 29 U/L (17-59); Bilirubin,Total 0.4 mg/dL (0.2-1.3); Blood Urea Nitrogen 13 mg/dL (9-20); Calcium 8.4 mg/dL (8.4-10.2); Carbon Dioxide 30 mmol/L (22-30); Chloride 105 mmol/L (98-107); Estimated CRCL calculation 96 ml/min; Estimated Glomerular Filt Rate > 60; Glucose 107 mg/dL (65-110); Potassium 3.3 mmol/L (3.4-5.0); Sodium 141 mmol/L (137-145)
[2020-12-30] MEDS: SODIUM CHLORIDE 0.9% IV 1,000 ML 125 ML IV CONT (06:18)
[2020-12-30] MEDS: ASPIRIN 81 MG ENTERIC TABLET PO (09:34)
[2020-12-30] MEDS: FLUDROCORTISONE ACETATE 0.1 MG TABLET PO (09:34)
[2020-12-30] MEDS: MIDODRINE HCL 10 MG TABLET PO ×3 (09:34→17:44)
[2020-12-30] MEDS: POTASSIUM CHLORIDE 20 MEQ TABLET.ER PO (09:34)
[2020-12-30] MEDS: MAGNESIUM OXIDE 400 MG TABLET PO (09:35)
[2020-12-30] MEDS: CYANOCOBALAMIN 1,000 MCG TABLET 1000 MCG PO (09:35)
[2020-12-30] MEDS: METOPROLOL TARTRATE 12.5 MG TABLET PO (09:35)
[2020-12-30] MEDS: GABAPENTIN 400 MG CAPSULE PO ×2 (09:35→17:44)
[2020-12-30] MEDS: POTASSIUM CHLORIDE 20 MEQ PACKET (FOR LIQUID) 60 MEQ PO (09:39)
[2020-12-30] MEDS: INSULIN GLARGINE (*BKC) 100 UNITS/ML 30 UNITS SUB-Q (09:41)
[2020-12-30] MEDS: INSULIN ASPART (*BKC) 100 UNITS/ML 7 UNITS SUB-Q ×3 (09:42→17:43)
[2020-12-30 09:45] LABS: Glucose Point of Care 198 mg/dl (65-105)
[2020-12-30 12:05] LABS: Glucose Point of Care 214 mg/dl (65-105)
--- NOTE | 2020-12-30 12:06 | PM.PNCARD ---
Progress Note: A&P Assessment and Plan (1) Syncope due to orthostatic hypotension: Code(s): I95.1 - Orthostatic hypotension Status: Acute Assessment and Plan: Discontinue IV fluids, recheck orthostatic vital signs. Since patient now reports spinning sensation suggestive of vertigo along with nausea which is relatively new. He remains orthostatic but less severe as documented. Consider Neurology and/or ENT consultation. Defer to primary service in this regard. Check orthostatic vital signs with IV fluids. Compression stockings thigh-high to be worn during the day and with any ambulation. Patient best served with referral to Neurology at [facility] given severe persistent orthostatic hypotension likely secondary to autonomic dysfunction related to diabetes mellitus and neurocardiogenic syncope. There is little else that can be done at this institution for him. Again discussed alternative therapy such as Droxidopa yet are limited experience with this therapy and questionable benefit be on his present regimen and lack of availability limit fundamental change to his regimen at this time. Patient verbalized understanding. Defer to primary service whether he needs to be transferred as an inpatient or very prompt referral as an outpatient which is unlikely to happen. Bilateral compression stockings to above the knees, abdominal binder with ambulation, counseled pt to sit or stand for at least 3 minutes to ensure stability, ambulate with extreme caution and push hydration at least 3-4L free water daily until seen by Neurology at [facility]. Patient would be best served with [facility] follow-up upon discharge at [facility] with Neurology or transfer if not stable for discharge. (2) Acute on chronic kidney failure: Qualifiers: Acute renal failure type: unspecified Chronic kidney disease stage: unspecified stage Qualified Code(s): N17.9 - Acute kidney failure, unspecified; N18.9 - Chronic kidney disease, unspecified Code(s): N17.9 - Acute kidney failure, unspecified; N18.9 - Chronic kidney disease, unspecified Status: Acute Assessment and Plan: Resolved with IV fluids. Continue to monitor. (3) Hypertension associated with type 2 diabetes mellitus: Code(s): E11.59 - Type 2 diabetes mellitus with other circulatory complications; I15.2 - Hypertension secondary to endocrine disorders Status: Acute Assessment and Plan: Supine hypertension significant but acceptable. We again discussed the dangers with additional therapy for his orthostatic hypotension and that symptomatic hypotension associated with syncope poses a greatest risk to his safety. (4) Paroxysmal atrial fibrillation: Code(s): I48.0 - Paroxysmal atrial fibrillation Status: Chronic Assessment and Plan: I have no documentation of atrial fibrillation in our system by EKG dating back to 2019. Although he is not a candidate for anticoagulation due to recurrent falls as he has had multiple admissions for symptomatic orthostatic hypotension I would recommend discontinuation of metoprolol at this time despite the potential in reducing recurrence risk for atrial fibrillation. Metoprolol discontinued as the benefits likely outweighed by the risks due to blunting compensatory heart rate response to positional hypotension. Continue telemetry. Aspirin 81 mg daily. (5) Nausea: Code(s): R11.0 - Nausea Status: Acute Assessment and Plan: Etiology unclear although patient associated with spinning sensation with change in position suggestive of vertigo. Defer to primary service but consider medical seen, ENT and/or neuro consultation. Subjective Date/time seen: Date of service: 12/30/20 12:06 Follow-up for orthostatic hypotension Patient states he feels worse today. Feels nauseous which is exacerbated with sitting upright and ambulating along with a new symptom with the room spinning heavily when he stands up. Stacey
--- NOTE | 2020-12-30 12:07 | ECG_ITS ---
Measurements Intervals [place] Rate: 66 P: 39 WI: 176 QRS: 74 QRSD: 97 T: 194 QT: 444 QTc: 465 Interpretive Statements SINUS RHYTHM LEFT VENTRICULAR HYPERTROPHY AND ST-T CHANGE ST-T WAVE ABNORMALITY IN ANTEROLAT/HIGH LAT LEADS- CONSIDER ISCHEMIA BASELINE ARTIFACT- II, III, AVF ABNORMAL ECG Electronically Signed On 12-30-2020 12:49:10 CDT by Colin Moreland D.O.
[2020-12-30] MEDS: INSULIN ASPART (*BKC) 100 UNITS/ML SUB-Q (12:26)
[2020-12-30] MEDS: MECLIZINE HCL 12.5 MG TABLET PO ×3 (12:28→21:18)
[2020-12-30 13:28] LABS: Anion Gap 7 mmol/L (8-16); Blood Urea Nitrogen 14 mg/dL (9-20); Calcium 8.2 mg/dL (8.4-10.2); Carbon Dioxide 26 mmol/L (22-30); Chloride 105 mmol/L (98-107); Estimated CRCL calculation 96 ml/min; Estimated Glomerular Filt Rate > 60; Glucose 200 mg/dL (65-110); Potassium 4.3 mmol/L (3.4-5.0); Sodium 138 mmol/L (137-145)
[2020-12-30 17:15] LABS: Glucose Point of Care 129 mg/dl (65-105)
--- NOTE | 2020-12-30 17:31 | PM.IMPN ---
Progress Note: A&P Assessment and Plan (1) Orthostatic hypotension: Code(s): I95.1 - Orthostatic hypotension Status: Acute (2) BPV (benign positional vertigo): Qualifiers: Laterality: unspecified laterality Qualified Code(s): H81.10 - Benign paroxysmal vertigo, unspecified ear Code(s): H81.10 - Benign paroxysmal vertigo, unspecified ear Status: Acute (3) Syncope and collapse: Code(s): R55 - Syncope and collapse Status: Acute (4) Hypokalemia: Code(s): E87.6 - Hypokalemia Status: Acute (5) Insulin dependent type 2 diabetes mellitus: Code(s): E11.9 - Type 2 diabetes mellitus without complications; Z79.4 - MCFP (current) use of insulin Status: Acute Additional Plan 1. Syncopal episode possibly secondary to orthostatic hypotension given history of autonomic dysregulation complication of diabetes mellitus: -patient was significantly orthostatic positive vitals -significant supine hypertension and normal BP when checked in standing position however significant drop and positive orthostatic vitals noted - discussed with the patient that he needs to avoid supine position, care needs to be taken while changing positions, wear thigh high tedhose stockings - will discontinue metoprolol as per Cardiology recommendations 2. BPPV: - patent complains of sensation of room spinning; not limited to turning head aut significantly rrlated to changing positions, especially standing - will start low dose meclizine - CT scan with no findings - appreciate neuro input - Neuro exam performed by myself is reassuring and is not concerning for acute stroke 3. Fever- resolved: - likely measurement error; no other episodes noted Disposition: With regard to disposition, discussed with patient and gericare aide. PT and OT will be invited back to review the patient has his condition and dizziness have changed significantly since arrival. He is now more agreeable to assisted living facility Time Spent With Patient Time with patient: 25 - 35 minutes Subjective Date/time seen: 12/30/20 17:31 Interval history: 65-year-old male with past medical history significant for hypertension, hyperlipidemia, type 2 diabetes mellitus, peripheral neuropathy and chronic orthostatic hypotension secondary to autonomic dysregulation presented after having experienced a syncopal episode. Patient was recently admitted for similar concerns and was discharged on 12/25. On arrival he was noted to have a creatinine slightly elevated to 1.6 which after fluid administration has normalized. His orthostatic vitals were checked and he was noted to be severely orthostatic. However his supine blood pressure remains extremely elevated possibly because of the use of midodrine and Florinef together. However at this time it is very important that he continue with these medications because otherwise he would experience worsening orthostatic hypotension. he continues to remain orthostatic with acceptable standing and sitting blood pressures however the drop in blood pressure is noted to be >50 points, which is concerning. In addition, patient is noted to be feeling much more dizzy with episodes of spinning motion of his surroundings. We are starting patient on Meclizine scheduled at lower dose. CT head was obtained and neurological exam remains reassuring and less likely for stroke. Regardless, we're getting Neuro service on consult. Appreciate recommendation Cardiology is on board and we are being recommended to continue the patient on IV fluids, midodrine and Florinef in addition to discontinuing metoprolol due to the risk of hypotension related with it. Patient was noted to have spiked a fever to 100.6 which has not recurred and blood cultures drawn are so far negative. Review of Systems Review of Systems: A 10 point review of systems conducted which was otherwise negative Exam Narrative: Head: atraumatic, no
[2020-12-30] MEDS: ATORVASTATIN 40 MG TABLET PO (21:18)
[2020-12-30] MEDS: SERTRALINE HCL 25 MG TABLET PO (21:18)
[2020-12-30] MEDS: INSULIN GLARGINE (*BKC) 100 UNITS/ML 18 UNITS SUB-Q (21:21)
[2020-12-31 00:11] LABS: Glucose Point of Care 217 mg/dl (65-105)
[2020-12-31 06:00] VITALS: BP 174/78; PULSE 95; RESP 18; TEMP 36.1; O2SAT 94
[2020-12-31 06:22] LABS: Basophils Absolute Auto 0.1 K/mm3 (0.0-0.1); Basophils Percent Auto 0.9 % (0.2-1.2); Eosinophils Absolute Auto 0.2 K/mm3 (0-0.3); Eosinophils Percent Auto 3.5 % (0-4.4); Hematocrit 40.1 % (42.0-52.0); Hemoglobin 13.1 g/dL (14.0-18.0); Immature Granulocyte Absolute 0.03 K/mm3 (0.00-0.031); Immature Granulocyte Percent A 0.5 % (0-0.5); Lymphocytes Absolute Auto 1.96 K/mm3 (0.9-3.2); Lymphocytes Percent Auto 29.8 % (18.3-44.2); Mean Corpuscular HGB Conc 32.7 g/dl (32-36); Mean Corpuscular Hemoglobin 31.3 pg (26-34); Mean Corpuscular Volume 95.7 fl (80-100); Mean Platelet Volume 10.9 fl (7.4-10.4); Monocytes Absolute Auto 0.5 K/mm3 (0.1-0.6); Monocytes Percent Auto 8.1 % (2.6-8.5); Neutrophils Absolute Auto 3.8 K/mm3 (1.3-6.7); Neutrophils Percent Auto 57.2 % (45.5-73.1); Platelet Count Result 196 k/mm3 (150-375); Red Blood Count 4.19 M/mm3 (4.6-6.20); Red Cell Distribution Width 14.2 % (11.5-14.5); White Blood Count 6.6 K/mm3 (4.5-10.0)
[2020-12-31 06:46] LABS: Lactic Acid Reflex 0.9 mmol/L (0.7-2.1)
[2020-12-31 07:12] LABS: INR 0.9; Prothrombin Time 12.2 Seconds (11.1-14.7)
[2020-12-31 07:26] LABS: Alanine Aminotransferase 19 U/L (4-50); Albumin Level 3.8 g/dL (3.5-5.1); Alkaline Phosphatase 116 U/L (38-126); Anion Gap 9 mmol/L (8-16); Aspartate Amino Transferase 32 U/L (17-59); Bilirubin,Total 0.5 mg/dL (0.2-1.3); Blood Urea Nitrogen 14 mg/dL (9-20); CRP < 0.5 mg/dL (<1.0); Calcium 8.7 mg/dL (8.4-10.2); Carbon Dioxide 27 mmol/L (22-30); Chloride 104 mmol/L (98-107); Creatine Kinase 43 U/L (55-170); Estimated CRCL calculation 96 ml/min; Estimated Glomerular Filt Rate > 60; Glucose 150 mg/dL (65-110); Magnesium 1.7 mg/dL (1.6-2.3); Phosphorus 3.1 mg/dL (2.5-4.5); Potassium 3.2 mmol/L (3.4-5.0); Sodium 140 mmol/L (137-145)
[2020-12-31 08:21] LABS: Glucose Point of Care 163 mg/dl (65-105)
[2020-12-31] MEDS: MECLIZINE HCL 12.5 MG TABLET PO ×4 (09:27→21:28)
[2020-12-31] MEDS: MIDODRINE HCL 10 MG TABLET PO ×3 (09:27→16:57)
[2020-12-31] MEDS: CYANOCOBALAMIN 1,000 MCG TABLET 1000 MCG PO (09:27)
[2020-12-31] MEDS: ASPIRIN 81 MG ENTERIC TABLET PO (09:27)
[2020-12-31] MEDS: GABAPENTIN 400 MG CAPSULE PO ×3 (09:27→16:58)
[2020-12-31] MEDS: MAGNESIUM OXIDE 400 MG TABLET PO (09:27)
[2020-12-31] MEDS: POTASSIUM CHLORIDE 20 MEQ TABLET.ER PO (09:28)
[2020-12-31] MEDS: FLUDROCORTISONE ACETATE 0.1 MG TABLET PO (09:28)
[2020-12-31] MEDS: INSULIN ASPART (*BKC) 100 UNITS/ML 7 UNITS SUB-Q ×3 (09:30→16:57)
[2020-12-31] MEDS: INSULIN GLARGINE (*BKC) 100 UNITS/ML 30 UNITS SUB-Q (09:31)
[2020-12-31 10:04] VITALS: BP 159/75; PULSE 90; RESP 18; TEMP 36.5; O2SAT 98
[2020-12-31 10:05] VITALS: BP 77/46; BP 99/48; PULSE 105; PULSE 120; RESP 18; O2SAT 96
--- NOTE | 2020-12-31 10:09 | PM.PNCARD ---
Progress Note: A&P Assessment and Plan (1) Syncope due to orthostatic hypotension: Code(s): I95.1 - Orthostatic hypotension Status: Acute Assessment and Plan: Patient now reports spinning sensation suggestive of vertigo along with nausea which is relatively new. He remains orthostatic. IV fluids have been discontinued Compression stockings thigh-high to be worn during the day and with any ambulation. Neurology has been consulted. Will await their recommendations Bilateral compression stockings to above the knees abdominal binder with ambulation Pt to sit or stand for at least 3 minutes to ensure stability, ambulate with extreme caution and push hydration at least 3-4L free water daily until seen by Neurology (2) Acute on chronic kidney failure: Qualifiers: Acute renal failure type: unspecified Chronic kidney disease stage: unspecified stage Qualified Code(s): N17.9 - Acute kidney failure, unspecified; N18.9 - Chronic kidney disease, unspecified Code(s): N17.9 - Acute kidney failure, unspecified; N18.9 - Chronic kidney disease, unspecified Status: Acute Assessment and Plan: Resolved with IV fluids. Continue to monitor. (3) Hypertension associated with type 2 diabetes mellitus: Code(s): E11.59 - Type 2 diabetes mellitus with other circulatory complications; I15.2 - Hypertension secondary to endocrine disorders Status: Acute Assessment and Plan: Supine hypertension significant but acceptable. We again discussed the dangers with additional therapy for his orthostatic hypotension and that symptomatic hypotension associated with syncope poses a greatest risk to his safety. (4) Paroxysmal atrial fibrillation: Code(s): I48.0 - Paroxysmal atrial fibrillation Status: Chronic Assessment and Plan: I have no documentation of atrial fibrillation in our system by EKG dating back to 2019. Although he is not a candidate for anticoagulation due to recurrent falls as he has had multiple admissions for symptomatic orthostatic hypotension I would recommend discontinuation of metoprolol at this time despite the potential in reducing recurrence risk for atrial fibrillation. Metoprolol discontinued as the benefits likely outweighed by the risks due to blunting compensatory heart rate response to positional hypotension. Continue telemetry. Aspirin 81 mg daily. (5) Nausea: Code(s): R11.0 - Nausea Status: Acute Assessment and Plan: Etiology unclear although patient associated with spinning sensation with change in position suggestive of vertigo. Defer to primary service - neuro has been consulted Subjective Date/time seen: 12/31/20 10:09 Cardiology follow up for orthostatic hypotension Date of service 12/31/2020: Patient is not feeling well today.. States he was very dizzy upon standing and remains dizzy though he has been sitting up in the chair for a while. No other complaints. Review of Systems Review of Systems: All systems reviewed & are unremarkable except as noted in HPI and below Constitutional: Constitutional: Reports as per HPI, Reports no additional constitutional complaints and Denies headache(s) Eyes: Eyes: Reports as per HPI and Reports no additional eye complaints ENT: Reports system reviewed and no additional complaints, except as documented, Reports as per HPI and Denies headache(s) Cardiovascular: Cardiovascular: Reports as per HPI, Reports no additional cardiovascular complaints, Denies chest pain, Denies diaphoresis, Denies pedal edema, Denies leg edema, Reports lightheadedness, Denies palpitations, Denies dyspnea and Denies dyspnea on exertion Respiratory: Respiratory: Reports as per HPI, Reports no additional respiratory complaints, Denies dyspnea and Denies dyspnea on exertion Gastrointestinal: Gastrointestinal: Reports as per HPI, Reports no additional gastrointestinal complaints, Denies abdominal pain, Denies melena, D
[2020-12-31 11:46] LABS: Glucose Point of Care 260 mg/dl (65-105)
[2020-12-31 14:00] VITALS: BP 152/75; PULSE 72; RESP 18; TEMP 36.3; O2SAT 99
[2020-12-31 16:27] LABS: Glucose Point of Care 180 mg/dl (65-105)
[2020-12-31 16:37] LABS: Glucose Point of Care 180 mg/dl (65-105)
--- NOTE | 2020-12-31 19:11 | PM.IMPN ---
Progress Note: A&P Assessment and Plan (1) BPV (benign positional vertigo): Qualifiers: Laterality: unspecified laterality Qualified Code(s): H81.10 - Benign paroxysmal vertigo, unspecified ear Code(s): H81.10 - Benign paroxysmal vertigo, unspecified ear Status: Acute (2) Orthostatic hypotension: Code(s): I95.1 - Orthostatic hypotension Status: Acute (3) Syncope and collapse: Code(s): R55 - Syncope and collapse Status: Acute (4) Homelessness: Code(s): Z59.00 - Homelessness unspecified Status: Acute (5) Diabetes mellitus with hypoglycemia without coma: Qualifiers: Diabetes mellitus type: type 2 Diabetes mellitus terminal computer 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 insulin use: with terminal computer operator use Qualified Code(s): E11.649 - Type 2 diabetes mellitus with hypoglycemia without coma; Z79.4 - predatory animal exterminator (current) use of insulin Code(s): E11.649 - Type 2 diabetes mellitus with hypoglycemia without coma Status: Acute (6) Hypokalemia: Code(s): E87.6 - Hypokalemia Status: Acute (7) Acute kidney injury: Code(s): N17.9 - Acute kidney failure, unspecified Status: Resolved (8) Syncope due to orthostatic hypotension: Code(s): I95.1 - Orthostatic hypotension Status: Acute (9) Unable to care for self: Code(s): Z78.9 - Other specified health status Status: Acute Additional Plan 1. Syncopal episode possibly secondary to orthostatic hypotension given history of autonomic dysregulation complication of diabetes mellitus: -patient was significantly orthostatic positive vitals -significant supine hypertension and normal BP when checked in standing position however significant drop and positive orthostatic vitals noted - discussed with the patient that he needs to avoid supine position, care needs to be taken while changing positions, wear thigh high tedhose stockings - will discontinue metoprolol as per Cardiology recommendations -patient doing well today and has worked with therapy 2. BPPV: - patent complains of sensation of room spinning; not limited to turning head aut significantly rrlated to changing positions, especially standing -started on low dose meclizine - CT scan with no findings - appreciate neuro input - Neuro exam performed by myself is reassuring and is not concerning for acute stroke DISPOSITION: Patient has been rendered homeless as of 12/30; social work is working on placement appreciate recommendations Time Spent With Patient Time with patient: 25 - 35 minutes Subjective Date/time seen: 12/31/20 19:11 Interval history: 65-year-old male with past medical history significant for hypertension, hyperlipidemia, type 2 diabetes mellitus, peripheral neuropathy and chronic orthostatic hypotension secondary to autonomic dysregulation presented after having experienced a syncopal episode. Patient was recently admitted for similar concerns and was discharged on 12/25. On arrival he was noted to have a creatinine slightly elevated to 1.6 which after fluid administration has normalized. His orthostatic vitals were checked and he was noted to be severely orthostatic. However his supine blood pressure remains extremely elevated possibly because of the use of midodrine and Florinef together. However at this time it is very important that he continue with these medications because otherwise he would experience worsening orthostatic hypotension. he continues to remain orthostatic with acceptable standing and sitting blood pressures however the drop in blood pressure is noted to be >50 points, which is concerning. In addition, patient is noted to be feeling much more dizzy with episodes of spinning motion of his surroundings. We are starting patient on Meclizine scheduled at lower dose. CT head was obtained and neurological exam remains reassuring and less likely for stroke. Regardless, we're getting Neuro service on consult. Appreciate recommendation Ca
[2020-12-31 19:31] VITALS: RESP 18; O2SAT 98
[2020-12-31] MEDS: ATORVASTATIN 40 MG TABLET PO (21:28)
[2020-12-31] MEDS: SERTRALINE HCL 25 MG TABLET PO (21:29)
[2020-12-31] MEDS: INSULIN GLARGINE (*BKC) 100 UNITS/ML 18 UNITS SUB-Q (21:30)
[2020-12-31 21:36] LABS: Glucose Point of Care 134 mg/dl (65-105)
[2020-12-31 22:00] VITALS: BP 154/69; PULSE 72; RESP 16; TEMP 36.4; O2SAT 99
[2021-01-01] VITALS (7 sets, daily range): BP systolic 87–180; BP diastolic 50–84; PULSE 68–92; RESP 15–18; TEMP 36.2–36.6; O2SAT 94–99
[2021-01-01 06:15] LABS: Basophils Absolute Auto 0.1 K/mm3 (0.0-0.1); Eosinophils Absolute Auto 0.3 K/mm3 (0-0.3); Eosinophils Percent Auto 3.9 % (0-4.4); Hematocrit 36.8 % (42.0-52.0); Immature Granulocyte Absolute 0.02 K/mm3 (0.00-0.031); Immature Granulocyte Percent A 0.3 % (0-0.5); Lymphocytes Absolute Auto 2.16 K/mm3 (0.9-3.2); Lymphocytes Percent Auto 31.1 % (18.3-44.2); Mean Corpuscular HGB Conc 32.6 g/dl (32-36); Mean Corpuscular Hemoglobin 31.5 pg (26-34); Mean Corpuscular Volume 96.6 fl (80-100); Mean Platelet Volume 10.5 fl (7.4-10.4); Monocytes Absolute Auto 0.6 K/mm3 (0.1-0.6); Monocytes Percent Auto 8.2 % (2.6-8.5); Neutrophils Absolute Auto 3.9 K/mm3 (1.3-6.7); Neutrophils Percent Auto 55.5 % (45.5-73.1); Platelet Count Result 194 k/mm3 (150-375); Red Blood Count 3.81 M/mm3 (4.6-6.20); Red Cell Distribution Width 14.1 % (11.5-14.5); White Blood Count 6.9 K/mm3 (4.5-10.0)
[2021-01-01 06:25] LABS: Alanine Aminotransferase 19 U/L (4-50); Albumin Level 3.5 g/dL (3.5-5.1); Alkaline Phosphatase 106 U/L (38-126); Anion Gap 8 mmol/L (8-16); Aspartate Amino Transferase 31 U/L (17-59); Bilirubin,Total 0.4 mg/dL (0.2-1.3); Blood Urea Nitrogen 18 mg/dL (9-20); Calcium 8.6 mg/dL (8.4-10.2); Carbon Dioxide 29 mmol/L (22-30); Chloride 102 mmol/L (98-107); Estimated CRCL calculation 78 ml/min; Estimated Glomerular Filt Rate > 60; Glucose 222 mg/dL (65-110); Potassium 3.5 mmol/L (3.4-5.0); Sodium 139 mmol/L (137-145)
[2021-01-01 08:32] LABS: Glucose Point of Care 207 mg/dl (65-105)
[2021-01-01] MEDS: INSULIN ASPART (*BKC) 100 UNITS/ML 7 UNITS SUB-Q ×3 (09:03→17:56)
[2021-01-01] MEDS: INSULIN ASPART (*BKC) 100 UNITS/ML SUB-Q ×2 (09:04→12:14)
[2021-01-01] MEDS: MIDODRINE HCL 10 MG TABLET PO ×2 (09:07→12:12)
[2021-01-01] MEDS: GABAPENTIN 400 MG CAPSULE PO ×3 (09:08→17:55)
[2021-01-01] MEDS: ASPIRIN 81 MG ENTERIC TABLET PO (09:08)
[2021-01-01] MEDS: MAGNESIUM OXIDE 400 MG TABLET PO (09:08)
[2021-01-01] MEDS: POTASSIUM CHLORIDE 20 MEQ TABLET.ER PO (09:08)
[2021-01-01] MEDS: INSULIN GLARGINE (*BKC) 100 UNITS/ML 30 UNITS SUB-Q (09:09)
[2021-01-01] MEDS: FLUDROCORTISONE ACETATE 0.1 MG TABLET PO (09:09)
[2021-01-01] MEDS: MECLIZINE HCL 12.5 MG TABLET PO ×4 (09:09→21:15)
--- NOTE | 2021-01-01 12:04 | WPDNEURCNPN ---
Assessment and Plan Additional Plan severe orthostatic hypotension will try to control with the present medication with the strict time schedule although consideration to droxidopa/northera Consult date: 01/01/21 HPI: Jorge Alberto Cortez is a 65 year old male admitted to the hospital for the complaints of syncopal. Patient carries the ongoing diagnosis of chronic orthostatic hypotension secondary to autonomic dysregulation and again secondary to type 2 diabetes mellitus in addition to the diagnosis of 1. Peripheral neuropathy and 2. Recurrent syncopal episodes at home with resultant head trauma. This admission he patient has been seen by the investment underwriter as well he has been receiving IV fluids , IV fluids have been discontinued, compression stockings hi hi her being tried, patient does have chronic kidney disease, hypertension, type 2 diabetes mellitus, atrial fibrillation for which obviously he is not receiving anticoagulation therapy and metoprolol has been discontinued because of potential of accentuation of the symptomatology but he is on Florinef 0.1 mg daily, midodrine 10 mg 3 times a day Review of Systems Review of Systems: All systems reviewed & are unremarkable except as noted in HPI and below PMFSH Past Medical History Medical History Arthritis CAD (coronary artery disease) Negative stress test November 2018 patient's investment underwriter is Dr. Kaplan Chronic anemia Chronic kidney disease Stage III 0.9 and 1.4 over the last year Corpus callosum agenesis CVA (cerebral vascular accident) CTA head and neck September 2018: Old infarct in the right occipital lobe and right caudate nucleus Diabetes mellitus Historically uncontrolled with current hemoglobin A1c 9.9 in August 2019. Diabetic retinopathy S/p retinal surgery Diastolic dysfunction Noted on prior echocardiogram but most recent echocardiogram demonstrating hyperdynamic left ventricle with EF greater than 70% with no mention of diastolic dysfunction Essential hypertension History of angina Hyperlipidemia Kidney stones NSTEMI (non-ST elevated myocardial infarction) With chronic troponin elevation Orthostatic hypotension Paroxysmal atrial fibrillation Not on anticoagulation due to high has bled score/high fall risk Peripheral neuropathy Surgical History Surgical History History of cholecystectomy History of loop recorder patient states that it no longer works. Status post cataract extraction of both eyes with insertion of intraocular lens Family History Family History Sibling Hypertension Father Polycystic kidney disease Colon cancer Diabetes mellitus Prostate carcinoma Mother Cerebrovascular accident CHF (congestive heart failure) Diabetes mellitus Acute myocardial infarction Other Corpus callosum agenesis Social History Social History Social History: He is and lives alone in an apartment complex for seniors. He does not drive due to his poor vision. He is otherwise independent activities of daily living. 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 He is now on disability. He designates his sister, Yaz as his surrogate decision maker and he wishes to be a full code. He has 2 daughters who are relatively healthy. Smoking status: Never smoker Second hand tobacco smoke exposure: No Alcohol intake: never Substance use: never Substance use type: does not use Spiritual care concerns: No Meds Home Medications and Allergies Home Medications Medication Instructions Recorded Confirmed Type gabapentin 400 mg PO TID 01/08/19 12/28/20 History magnesium oxide 400 mg PO QAM #30 tablet 11/25/19 12/28/20 Rx dextrose [Glutose-15] 15 g PO PRN PRN #30 g 11/11/20 12/28/20 Rx s
[2021-01-01] MEDS: CYANOCOBALAMIN 1,000 MCG TABLET 1000 MCG PO (12:12)
[2021-01-01 12:30] LABS: Glucose Point of Care 279 mg/dl (65-105)
--- NOTE | 2021-01-01 14:08 | PM.PNCARD ---
Progress Note: A&P Assessment and Plan (1) Syncope due to orthostatic hypotension: Code(s): I95.1 - Orthostatic hypotension Status: Acute Assessment and Plan: Patient now reports spinning sensation suggestive of vertigo along with nausea which is relatively new. He remains orthostatic. IV fluids have been discontinued Compression stockings thigh-high to be worn during the day and with any ambulation. Neurology has been consulted. No medication changes were made. Recommended considering droxidopa Bilateral compression stockings to above the knees abdominal binder with ambulation Pt to sit or stand for at least 3 minutes to ensure stability, ambulate with extreme caution and push hydration at least 3-4L free water daily until seen by Neurology (2) Acute on chronic kidney failure: Qualifiers: Acute renal failure type: unspecified Chronic kidney disease stage: unspecified stage Qualified Code(s): N17.9 - Acute kidney failure, unspecified; N18.9 - Chronic kidney disease, unspecified Code(s): N17.9 - Acute kidney failure, unspecified; N18.9 - Chronic kidney disease, unspecified Status: Acute Assessment and Plan: Resolved with IV fluids. Continue to monitor. (3) Hypertension associated with type 2 diabetes mellitus: Code(s): E11.59 - Type 2 diabetes mellitus with other circulatory complications; I15.2 - Hypertension secondary to endocrine disorders Status: Acute Assessment and Plan: Supine hypertension significant but acceptable. We again discussed the dangers with additional therapy for his orthostatic hypotension and that symptomatic hypotension associated with syncope poses a greatest risk to his safety. (4) Paroxysmal atrial fibrillation: Code(s): I48.0 - Paroxysmal atrial fibrillation Status: Chronic Assessment and Plan: I have no documentation of atrial fibrillation in our system by EKG dating back to 2019. Although he is not a candidate for anticoagulation due to recurrent falls as he has had multiple admissions for symptomatic orthostatic hypotension I would recommend discontinuation of metoprolol at this time despite the potential in reducing recurrence risk for atrial fibrillation. Metoprolol discontinued as the benefits likely outweighed by the risks due to blunting compensatory heart rate response to positional hypotension. Continue telemetry. Aspirin 81 mg daily. (5) Nausea: Code(s): R11.0 - Nausea Status: Acute Assessment and Plan: Etiology unclear although patient associated with spinning sensation with change in position suggestive of vertigo. Defer to primary service - neuro has been consulted Subjective Date/time seen: 01/01/21 14:08 Cardiology follow up for orthostatic hypotension Date of service 01/01/2021: He's feeling better today. Has not experienced dizziness, vertigo, syncope, or pre-syncope today. He says he has ambulated to the bathroom several times without symptoms. Apparently he has been evicted from his home therefore he is going to require some assistance from social work in regards to his housing situation. Review of Systems Review of Systems: All systems reviewed & are unremarkable except as noted in HPI and below Constitutional: Constitutional: Reports as per HPI, Reports no additional constitutional complaints and Denies headache(s) Eyes: Eyes: Reports as per HPI and Reports no additional eye complaints ENT: Reports system reviewed and no additional complaints, except as documented, Reports as per HPI and Denies headache(s) Cardiovascular: Cardiovascular: Reports as per HPI, Reports no additional cardiovascular complaints, Denies chest pain, Denies diaphoresis, Denies pedal edema, Denies leg edema, Reports lightheadedness, Denies palpitations, Denies dyspnea and Denies dyspnea on exertion Respiratory: Respiratory: Reports as per HPI, Reports no additional respiratory complaints, Denies dys
[2021-01-01 17:15] LABS: Glucose Point of Care 157 mg/dl (65-105)
--- NOTE | 2021-01-01 20:14 | PM.IMPN ---
Progress Note: A&P Assessment and Plan (1) BPV (benign positional vertigo): Qualifiers: Laterality: unspecified laterality Qualified Code(s): H81.10 - Benign paroxysmal vertigo, unspecified ear Code(s): H81.10 - Benign paroxysmal vertigo, unspecified ear Status: Acute (2) Orthostatic hypotension: Code(s): I95.1 - Orthostatic hypotension Status: Acute (3) Syncope and collapse: Code(s): R55 - Syncope and collapse Status: Acute Assessment and Plan: Continue midodrine and Florinef Supportive care (4) Homelessness: Code(s): Z59.00 - Homelessness unspecified Status: Acute (5) Diabetes mellitus with hypoglycemia without coma: Qualifiers: Diabetes mellitus type: type 2 Diabetes mellitus ocean transportation intermediary insulin use: with long-term use Qualified Code(s): E11.649 - Type 2 diabetes mellitus with hypoglycemia without coma; Z79.4 - prison (current) use of insulin Code(s): E11.649 - Type 2 diabetes mellitus with hypoglycemia without coma Status: Acute (6) Hypokalemia: Code(s): E87.6 - Hypokalemia Status: Acute Assessment and Plan: Resolved. (7) Acute kidney injury: Code(s): N17.9 - Acute kidney failure, unspecified Status: Resolved (8) Syncope due to orthostatic hypotension: Code(s): I95.1 - Orthostatic hypotension Status: Acute (9) Unable to care for self: Code(s): Z78.9 - Other specified health status Status: Acute Additional Plan 1. Syncopal episode possibly secondary to orthostatic hypotension given history of autonomic dysregulation complication of diabetes mellitus: -patient was significantly orthostatic positive vitals -improving; currently asymptomatic. -significant supine hypertension and normal BP when checked in standing position however significant drop and positive orthostatic vitals noted - discussed with the patient that he needs to avoid supine position, care needs to be taken while changing positions, wear thigh high sarah-hose stockings - stopped metoprolol as per cardiology recommendations -patient doing well today and has worked with therapy 2. BPPV: - patent complains of sensation of room spinning; symptoms are in remission after patient was started on low dose meclizine - CT scan with no findings - appreciate neuro input - Neuro exam performed by myself is reassuring and is not concerning for acute stroke DISPOSITION: Patient has been rendered homeless as of 12/30; social work is working on placement appreciate recommendations. Subjective Date/time seen: 01/01/21 20:14 S: Patient was examined at the bedside. No complaints. Interval history: 65-year-old male with past medical history significant for hypertension, hyperlipidemia, type 2 diabetes mellitus, peripheral neuropathy and chronic orthostatic hypotension secondary to autonomic dysregulation presented after having experienced a syncopal episode. Patient was recently admitted for similar concerns and was discharged on 12/25. Currently patient is awaiting placement. Review of Systems Constitutional: Constitutional: Denies chills, Denies fatigue, Denies fever(s), Denies lethargy, Denies malaise and Denies weakness Eyes: Eyes: Denies change in vision, Denies diplopia, Denies floaters, Denies loss of vision, Denies seeing flashes and Denies spots in vision ENT: Denies dysphagia, Denies vertigo, Denies dizziness, Denies nasal congestion, Denies nasal discharge, Denies nasal obstruction and Denies odynophagia Cardiovascular: Cardiovascular: Denies chest pain with activity, Denies diaphoresis, Reports syncope, Denies irregular heart rhythm, Denies claudication, Denies leg edema, Denies lightheadedness, Denies radiating jaw, neck or arm pain, Denies palpitations, Denies dyspnea and Denies dyspnea on exertion Respiratory: Respiratory: Denies chest congestion, Denies cough, Denies dyspnea, Denies dyspnea on exertion and Denie
[2021-01-01] MEDS: SERTRALINE HCL 25 MG TABLET PO (21:15)
[2021-01-01] MEDS: ATORVASTATIN 40 MG TABLET PO (21:15)
[2021-01-01 21:24] LABS: Glucose Point of Care 217 mg/dl (65-105)
[2021-01-01] MEDS: INSULIN GLARGINE (*BKC) 100 UNITS/ML 18 UNITS SUB-Q (21:24)
[2021-01-02] VITALS (7 sets, daily range): BP systolic 74–190; BP diastolic 48–76; PULSE 73–110; RESP 14–20; TEMP 36.6–37.3; O2SAT 94–100
[2021-01-02 08:20] LABS: Glucose Point of Care 161 mg/dl (65-105)
[2021-01-02] MEDS: INSULIN ASPART (*BKC) 100 UNITS/ML 7 UNITS SUB-Q ×3 (09:55→17:35)
[2021-01-02] MEDS: POTASSIUM CHLORIDE 20 MEQ TABLET.ER PO (09:56)
[2021-01-02] MEDS: CYANOCOBALAMIN 1,000 MCG TABLET 1000 MCG PO (09:56)
[2021-01-02] MEDS: GABAPENTIN 400 MG CAPSULE PO ×3 (09:56→17:35)
[2021-01-02] MEDS: MIDODRINE HCL 10 MG TABLET PO ×2 (09:56→12:51)
[2021-01-02] MEDS: MECLIZINE HCL 12.5 MG TABLET PO ×4 (09:56→22:00)
[2021-01-02] MEDS: FLUDROCORTISONE ACETATE 0.1 MG TABLET PO (09:56)
[2021-01-02] MEDS: ASPIRIN 81 MG ENTERIC TABLET PO (09:56)
[2021-01-02] MEDS: MAGNESIUM OXIDE 400 MG TABLET PO (09:56)
[2021-01-02] MEDS: INSULIN GLARGINE (*BKC) 100 UNITS/ML 30 UNITS SUB-Q (09:57)
--- NOTE | 2021-01-02 11:05 | PM.DS ---
DS: Admitting Diagnosis Discharge Date 01/02/2021. Admitting Diagnosis Syncope due to orthostatic hypotension. DS: Discharge Diagnosis Discharge Diagnosis (1) Syncope and collapse: Code(s): R55 - Syncope and collapse Status: Acute DS: Summary Time Spent with Patient Time attestation: Total time spent providing and/or coordinating discharge services: DS: Data Data Completed and Pending Labs on day of discharge: Labs from last 24 hours 01/02/21 01/01/21 01/01/21 07:56 21:17 16:41 POC Capillary Glucose 161 H 217 H 157 H 01/01/21 12:01 POC Capillary Glucose 279 H Preliminary micro results at discharge 12/29/20 17:32 Blood Culture - Preliminary Blood 12/29/20 17:32 Blood Culture - Preliminary Blood Discharge Plan Discharge Attending physician on discharge: Mercedes Camarillo Consulting providers: Rey Marquez ; Slade Veloz Discharging Clinician: Mercedes Camarillo Anticipated Discharge Date/Time: 01/02/21 13:00 Activity: june shower Diet: regular Patient Instructions: Pain Management in Older Adults (DC), Hypotension (DC) Patient Language: Anguillan Follow-up/Referrals: Jam,Lobo Vasques MD [Primary Care Provider] - 1 Week Slade Veloz MD [Physician] - 6 Weeks Discharge Medications: New (DME) compression socks, x-large Misc See Rx Instructions .ROUTE Qty: 2 RF: 0 Continued gabapentin 400 mg Capsule 400 mg PO TID RF: 0 dextrose [Glutose-15] 40 % Gel 15 g PO PRN PRN (Reason: Hypoglycemia) Qty: 30 RF: 0 metoprolol tartrate 25 mg tablet 12.5 mg PO DAILY 30 Days Qty: 15 RF: 0 atorvastatin 40 mg Tablet 40 mg PO HS Qty: 30 RF: 0 aspirin [Aspirin Low Dose] 81 mg Tablet,Delayed Release (Dr/Ec) 81 mg PO DAILY Qty: 30 RF: 0 Lantus U-100 Insulin 100 unit/mL solution 30 unit subcut QAM RF: 0 magnesium oxide 400 mg (241.3 mg magnesium) Tablet 400 mg PO QAM Qty: 30 RF: 0 sertraline [Zoloft] 50 mg Tablet 25 mg PO HS 30 Days Qty: 15 RF: 0 cyanocobalamin (vitamin B-12) 1,000 mcg PO QAM RF: 0 metformin 1,000 mg tablet 1,000 mg PO BID RF: 0 acetaminophen [Mapap (acetaminophen)] 325 mg Tablet 650 mg PO Q4H PRN (Reason: Mild Pain (1-3) Or Fever) Qty: 30 RF: 0 insulin aspart U-100 [Novolog U-100 Insulin aspart] 100 unit/mL solution 7 unit subcut TIDWM Qty: 0 RF: 0 Basaglar KwikPen U-100 Insulin 100 unit/mL (3 mL) insulin pen 18 unit SUBCUT HS Qty: 0 RF: 0 potassium chloride [K-Tab] 20 mEq tablet extended release 20 meq PO DAILY@0800 RF: 0 midodrine 10 mg Tablet 10 mg PO TID 30 Days Qty: 90 RF: 2 fludrocortisone 0.1 mg Tablet 0.1 mg PO DAILY@0800 30 Days Qty: 30 RF: 2 Date of admission: 12/28/20 16:10 Primary Care Provider: Jam,Lobo Vasques Admitting Provider: Hermann Ware V. Attending physician on admission: Laxmi Calderon Condition: Stable Quality VTE Prophylaxis VTE prophylaxis: mechanical ordered and pharmacologic ordered
[2021-01-02] MEDS: SODIUM CHLORIDE 0.9% IV 500 ML IV CONT (11:10)
[2021-01-02 12:22] LABS: Glucose Point of Care 210 mg/dl (65-105)
--- NOTE | 2021-01-02 12:23 | PM.PNCARD ---
Progress Note: A&P Assessment and Plan (1) Syncope due to orthostatic hypotension: Code(s): I95.1 - Orthostatic hypotension Status: Acute Assessment and Plan: Patient now reports spinning sensation suggestive of vertigo along with nausea which is relatively new. He remains orthostatic. IV fluids have been discontinued Compression stockings thigh-high to be worn during the day and with any ambulation. Neurology has been consulted. No medication changes were made. Recommended considering droxidopa Bilateral compression stockings to above the knees abdominal binder with ambulation Pt to sit or stand for at least 3 minutes to ensure stability, ambulate with extreme caution and push hydration at least 3-4L free water daily until seen by Neurology Will sign off. Defer further recommendations and management to primary service and Neurology. Defer need for Droxidopa to Neurology as I have economic analysis director with this medication. Please do not hesitate to contact us with any additional questions or concerns. (2) Acute on chronic kidney failure: Qualifiers: Acute renal failure type: unspecified Chronic kidney disease stage: unspecified stage Qualified Code(s): N17.9 - Acute kidney failure, unspecified; N18.9 - Chronic kidney disease, unspecified Code(s): N17.9 - Acute kidney failure, unspecified; N18.9 - Chronic kidney disease, unspecified Status: Acute Assessment and Plan: Resolved with IV fluids. (3) Hypertension associated with type 2 diabetes mellitus: Code(s): E11.59 - Type 2 diabetes mellitus with other circulatory complications; I15.2 - Hypertension secondary to endocrine disorders Status: Acute Assessment and Plan: Supine hypertension significant but acceptable. As above. (4) Paroxysmal atrial fibrillation: Code(s): I48.0 - Paroxysmal atrial fibrillation Status: Chronic Assessment and Plan: I have no documentation of atrial fibrillation in our system by EKG dating back to 2019. Although he is not a candidate for anticoagulation due to recurrent falls as he has had multiple admissions for symptomatic orthostatic hypotension I would recommend discontinuation of metoprolol at this time despite the potential in reducing recurrence risk for atrial fibrillation. Metoprolol discontinued as the benefits likely outweighed by the risks due to blunting compensatory heart rate response to positional hypotension. Continue telemetry. Aspirin 81 mg daily. Subjective Date/time seen: Date of service: 01/02/21 12:23 Follow-up for orthostatic hypotension Patient feeling better overall today. Still dizzy with position change but less so. Remains severely orthostatic. Plan for rehabilitation at discharge transition to assisted living per patient. No chest pain, palpitations or shortness of breath. He states he feels okay at present and better overall. Unfortunately, social history issues with regards to housing noted. Review of Systems Review of Systems: All systems reviewed & are unremarkable except as noted in HPI and below Constitutional: Constitutional: Reports as per HPI, Reports no additional constitutional complaints and Denies headache(s) Eyes: Eyes: Reports as per HPI and Reports no additional eye complaints ENT: Reports system reviewed and no additional complaints, except as documented, Reports as per HPI and Denies headache(s) Cardiovascular: Cardiovascular: Reports as per HPI, Reports no additional cardiovascular complaints, Denies chest pain, Denies diaphoresis, Denies pedal edema, Denies leg edema, Reports lightheadedness, Denies palpitations, Denies dyspnea and Denies dyspnea on exertion Respiratory: Respiratory: Reports as per HPI, Reports no additional respiratory complaints, Denies dyspnea and Denies dyspnea on exertion Gastrointestinal: Gastrointestinal: Reports as per HPI, Reports no additional gastrointestinal complaints, Denies abdomin
[2021-01-02] MEDS: INSULIN ASPART (*BKC) 100 UNITS/ML SUB-Q (12:50)
--- NOTE | 2021-01-02 14:18 | WPDNEUROPN ---
Progress Note: A&P Additional Plan 1. Hydration 2. Compression stocking 3. 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, and paroxysmal atrial fibrillation for which patient is not on anticoagulation has been receiving midodrine 10 mg 3 times a day Review of Systems Review of Systems: All systems reviewed & are unremarkable except as noted in HPI and below Objective Data Vital Signs Vital Signs: Vital Signs - 24 hr 01/01/21 15:24 01/01/21 20:39 01/01/21 22:00 Temperature 36.6 C Pulse Rate 82 91 Respiratory Rate 16 16 Blood Pressure 87/50 L 144/78 H Pulse Oximetry 98 94 01/02/21 06:00 01/02/21 08:00 01/02/21 10:42 Temperature 37.3 C 37.1 C Pulse Rate 94 110 H 92 Respiratory Rate 16 20 18 Blood Pressure 160/76 H 152/69 H Pulse Oximetry 97 98 95 01/02/21 10:43 01/02/21 10:44 Temperature 37.1 C 36.6 C Pulse Rate 95 110 H Respiratory Rate 18 20 Blood Pressure 106/51 L 74/48 L Pulse Oximetry 100 98 Intake/Output Intake/Output: Intake & Output 12/30/20 12/31/20 01/01/21 01/02/21 23:59 23:59 23:59 23:59 Intake Total 2750 1670 2288 1060 Output Total 600 Balance 2150 1670 2288 1060 Meds/Results Medications: Active Medications Generic Name Dose Route Start Last Admin Trade Name Freq PRN Reason Stop Dose Admin Acetaminophen 650 mg 12/28/20 05:09 12/29/20 14:57 Acetaminophen 325 Mg Tablet PO 650 mg Q4H PRN Administration Mild Pain (1-3) Or Fever Aspirin 81 mg 12/28/20 09:00 01/02/21 09:56 Aspirin 81 Mg Enteric Tablet PO 81 mg DAILY NIKA Administration Atorvastatin Calcium 40 mg 12/28/20 21:00 01/01/21 21:15 Atorvastatin 40 Mg Tablet PO 40 mg HS NIKA Administration Cyanocobalamin 1,000 mcg 12/28/20 09:00 01/02/21 09:56 Cyanocobalamin 1,000 Mcg Tablet PO 01/27/21 08:59 1,000 mcg QAM NIKA Administration Dextrose 12.5 gm 12/28/20 05:36 Dextrose 50% 25 Gm/50 Ml Syringe IV PUSH PRN PRN Hypoglycemia Protocol Fludrocortisone Acetate 0.1 mg 12/28/20 08:00 01/02/21 09:56 Fludrocortisone Acetate 0.1 Mg Tablet PO 0.1 mg DAILY@0800 NIKA Administration Gabapentin 400 mg 12/28/20 09:00 01/02/21 12:51 Gabapentin 400 Mg Capsule PO 400 mg TID NIKA Administration Glucagon 1 mg 12/28/20 05:36 Glucagon For Inj 1 Mg Vial IM PRN PRN Hypoglycemia Protocol Glucose 15 gm 12/28/20 05:36 Glucose Oral Gel 15 Gm Of Glucse In 37.5 Gm Tube PO PRN PRN Hypoglycemia Protocol Dextrose 1,000 mls @ 100 mls/hr 12/28/20 05:36 Dextrose 5% 1,000 Ml IVPB PRN PRN Hypoglycemia Protocol Insulin Aspart 7 units 12/28/20 08:00 01/02/21 12:50 Insulin Aspart (*Bkc) 100 Units/Ml SUB-Q 01/27/21 07:59 7 units TIDWM NIKA Administration Insulin Aspart 4 - 8 units 12/28/20 08:00 01/02/21 12:50 Insulin Aspart (*Bkc) 100 Units/Ml SUB-Q 4 units TIDWM NIKA Administration Protocol Insulin Glargine 18 units 12/28/20 21:00 01/01/21 21:24 Insulin Glargine (*Bkc) 100 Units/Ml SUB-Q 18 units HS NIKA Administration Insulin Glargine 30 units 12/28/20 09:00 01/02/21 09:57 Insulin Glargine (*Bkc) 100 Units/Ml SUB-Q 30 units DAILY NIKA Administration Magnesium Oxide 400 mg 12/28/20 09:00 01/02/21 09:56 Magnesium Oxide 400 Mg Tablet PO 400 mg QAM NIKA Administration Meclizine HCl 12.5 mg 12/30/20 13:00 01/02/21 12:51
[2021-01-02 16:17] LABS: Glucose Point of Care 180 mg/dl (65-105)
--- NOTE | 2021-01-02 17:40 | PM.IMPN ---
Progress Note: A&P Assessment and Plan (1) Syncope and collapse: Code(s): R55 - Syncope and collapse Status: Acute Assessment and Plan: Continue midodrine and Florinef Supportive care Additional Plan 1. Syncopal episode possibly secondary to orthostatic hypotension given history of autonomic dysregulation complication of diabetes mellitus: -patient remains somewhat orthostatic. -improving; currently asymptomatic. -significant supine hypertension and normal BP when checked in standing position however significant drop and positive orthostatic vitals noted - discussed with the patient that he needs to avoid supine position, care needs to be taken while changing positions, wear thigh high sarah-hose stockings -Neurology has been consulted. No medication changes were made. Recommended considering droxidopa Bilateral compression stockings to above the knees abdominal binder with ambulation Pt to sit or stand for at least 3 minutes to ensure stability, ambulate with extreme caution and push hydration at least 3-4L free water daily. 2. BPPV: - patent complains of sensation of room spinning; symptoms are in remission after patient was started on low dose meclizine - CT scan with no findings - Neurology recommendations reviewed. - Neuro exam performed by myself is reassuring and is not concerning for acute stroke DISPOSITION: Patient has been rendered homeless as of 12/30; social work is working on placement appreciate recommendations. Subjective Date/time seen: 01/02/21 17:40 S: patient was examined at bedside. No additional episodes of dizziness. However now reports a spinning sensation later during the day along with nausea which is new. He remains relatively orthostatic. Will restart the IV fluids. Interval history: 65-year-old male with past medical history significant for hypertension, hyperlipidemia, type 2 diabetes mellitus, peripheral neuropathy and chronic orthostatic hypotension secondary to autonomic dysregulation presented after having experienced a syncopal episode. Patient was recently admitted for similar concerns and was discharged on 12/25. Currently patient is awaiting placement. Review of Systems Review of Systems: All systems reviewed & are unremarkable except as noted in HPI and below Constitutional: Constitutional: Reports as per HPI, Denies chills, Denies fatigue, Denies fever(s), Denies lethargy, Denies malaise and Denies weakness Eyes: Eyes: Denies change in vision, Denies diplopia, Denies floaters, Denies loss of vision, Denies seeing flashes and Denies spots in vision ENT: Denies dysphagia, Denies vertigo, Denies dizziness, Denies nasal congestion, Denies nasal discharge, Denies nasal obstruction and Denies odynophagia Cardiovascular: Cardiovascular: Denies chest pain with activity, Denies diaphoresis, Reports syncope, Denies irregular heart rhythm, Denies claudication, Denies leg edema, Denies lightheadedness, Denies radiating jaw, neck or arm pain, Denies palpitations, Denies dyspnea and Denies dyspnea on exertion Respiratory: Respiratory: Denies chest congestion, Denies cough, Denies dyspnea, Denies dyspnea on exertion and Denies wheezing Gastrointestinal: Gastrointestinal: Denies abdominal pain, Denies dysphagia, Denies dyspepsia, Denies diarrhea, Denies nausea, Denies odynophagia and Denies vomiting Genitourinary: Genitourinary: Reports no additional male genitourinary complaints and Reports as per HPI Musculoskeletal: Musculoskeletal: Denies arthralgias and Denies muscle weakness Integumentary/Breasts: Skin/Breast: Denies rash Neurologic: Denies vertigo, Denies dizziness, Reports syncope, Denies focal weakness, Denies loss of vision, Denies Sensory deficit (Neuro) and Denies weakness Psychiatric: Psychiatric: Reports no additional psychiatric complaints and Reports as per HPI Endocrine: Endocrine: Reports no additional endocrine complaints, Reports as per HPI, Denies fatigue and Denies p
[2021-01-02] MEDS: ATORVASTATIN 40 MG TABLET PO (22:00)
[2021-01-02] MEDS: SERTRALINE HCL 25 MG TABLET PO (22:00)
[2021-01-02] MEDS: INSULIN GLARGINE (*BKC) 100 UNITS/ML 18 UNITS SUB-Q (22:01)
[2021-01-02 23:01] LABS: Glucose Point of Care 250 mg/dl (65-105)
[2021-01-03] VITALS (7 sets, daily range): BP systolic 80–167; BP diastolic 51–86; PULSE 87–108; RESP 18–20; TEMP 36.3–37.2; O2SAT 95–98
--- NOTE | 2021-01-03 01:00 | PC.NURSE ---
Daylight Savings Time For Daylight Savings Time Ending in the Fall - Clocks are moved back. For Daylight Savings Time Beginning in the Spring - Clocks are moved ahead. For [facility], the time of change occurs at 0200 hrs. Time is taken from the inside plant supervisor. This entry on the patient's chart recognizes the change in time reflected during documentation. Example: 2 entries for vital signs may be charted for 0200 hrs.
[2021-01-03 07:58] LABS: Glucose Point of Care 201 mg/dl (65-105)
[2021-01-03] MEDS: POTASSIUM CHLORIDE 20 MEQ TABLET.ER PO (09:09)
[2021-01-03] MEDS: MECLIZINE HCL 12.5 MG TABLET PO ×4 (09:10→21:25)
[2021-01-03] MEDS: MIDODRINE HCL 10 MG TABLET PO (09:10)
[2021-01-03] MEDS: CYANOCOBALAMIN 1,000 MCG TABLET 1000 MCG PO (09:10)
[2021-01-03] MEDS: ASPIRIN 81 MG ENTERIC TABLET PO (09:10)
[2021-01-03] MEDS: GABAPENTIN 400 MG CAPSULE PO ×3 (09:10→18:07)
[2021-01-03] MEDS: FLUDROCORTISONE ACETATE 0.1 MG TABLET PO (09:10)
[2021-01-03] MEDS: INSULIN ASPART (*BKC) 100 UNITS/ML 7 UNITS SUB-Q ×3 (09:11→18:06)
[2021-01-03] MEDS: INSULIN ASPART (*BKC) 100 UNITS/ML SUB-Q ×2 (09:11→12:17)
[2021-01-03] MEDS: MAGNESIUM OXIDE 400 MG TABLET PO (09:11)
[2021-01-03] MEDS: INSULIN GLARGINE (*BKC) 100 UNITS/ML 30 UNITS SUB-Q (09:11)
[2021-01-03 11:30] LABS: Hematocrit 36.3 % (42.0-52.0); Hemoglobin 11.6 g/dL (14.0-18.0); Mean Corpuscular Hemoglobin 31.3 pg (26-34); Mean Corpuscular Volume 97.8 fl (80-100); Mean Platelet Volume 10.6 fl (7.4-10.4); Platelet Count Result 198 k/mm3 (150-375); Red Blood Count 3.71 M/mm3 (4.6-6.20); Red Cell Distribution Width 14.2 % (11.5-14.5); White Blood Count 5.7 K/mm3 (4.5-10.0)
[2021-01-03 11:41] LABS: Anion Gap 8 mmol/L (8-16); Blood Urea Nitrogen 17 mg/dL (9-20); Calcium 8.5 mg/dL (8.4-10.2); Carbon Dioxide 26 mmol/L (22-30); Chloride 104 mmol/L (98-107); Estimated CRCL calculation 86 ml/min; Estimated Glomerular Filt Rate > 60; Glucose 259 mg/dL (65-110); Potassium 3.8 mmol/L (3.4-5.0); Sodium 138 mmol/L (137-145)
[2021-01-03 12:02] LABS: Glucose Point of Care 323 mg/dl (65-105)
--- NOTE | 2021-01-03 13:04 | PM.IMPN ---
Progress Note: A&P Assessment and Plan (1) Syncope and collapse: Code(s): R55 - Syncope and collapse Status: Acute Assessment and Plan: Continue midodrine and Florinef. Continue lower extremity compression with socks. Patient was educated about the need to avoid supine position and be careful while changing position. Supportive care Additional Plan 1. Syncopal episode possibly secondary to orthostatic hypotension given history of autonomic dysregulation complication of diabetes mellitus: -patient remains somewhat orthostatic. -improving; currently asymptomatic. -significant supine hypertension and normal BP when checked in standing position however significant drop and positive orthostatic vitals noted - discussed with the patient that he needs to avoid supine position, care needs to be taken while changing positions, wear thigh high sarah-hose stockings -Neurology has been consulted. No medication changes were made. Recommended considering droxidopa Bilateral compression stockings to above the knees abdominal binder with ambulation Pt to sit or stand for at least 3 minutes to ensure stability, ambulate with extreme caution and push hydration at least 3-4L free water daily. 2. BPPV: - patent complains of sensation of room spinning; symptoms are in remission after patient was started on low dose meclizine - CT scan with no findings - Neurology recommendations reviewed. - Neuro exam performed by myself is reassuring and is not concerning for acute stroke DISPOSITION: Patient has been rendered homeless as of 12/30; social work is working on placement appreciate recommendations. Subjective Date/time seen: 01/03/21 13:04 S: Patient is examined at the bedside. He was lying flat in the bed. He denied any complaint. Compression socks thigh-high are in place. Interval history: 65-year-old male with past medical history significant for hypertension, hyperlipidemia, type 2 diabetes mellitus, peripheral neuropathy and chronic orthostatic hypotension secondary to autonomic dysregulation presented after having experienced a syncopal episode. Patient was recently admitted for similar concerns and was discharged on 12/25. Currently patient is awaiting placement. Review of Systems Review of Systems: All systems reviewed & are unremarkable except as noted in HPI and below Constitutional: Constitutional: Reports as per HPI, Denies chills, Denies fatigue, Denies fever(s), Denies lethargy, Denies malaise and Denies weakness Eyes: Eyes: Denies change in vision, Denies diplopia, Denies floaters, Denies loss of vision, Denies seeing flashes and Denies spots in vision ENT: Denies dysphagia, Denies vertigo, Denies dizziness, Denies nasal congestion, Denies nasal discharge, Denies nasal obstruction and Denies odynophagia Cardiovascular: Cardiovascular: Denies chest pain with activity, Denies diaphoresis, Reports syncope, Denies irregular heart rhythm, Denies claudication, Denies leg edema, Denies lightheadedness, Denies radiating jaw, neck or arm pain, Denies palpitations, Denies dyspnea and Denies dyspnea on exertion Respiratory: Respiratory: Denies chest congestion, Denies cough, Denies dyspnea, Denies dyspnea on exertion and Denies wheezing Gastrointestinal: Gastrointestinal: Denies abdominal pain, Denies dysphagia, Denies dyspepsia, Denies diarrhea, Denies nausea, Denies odynophagia and Denies vomiting Genitourinary: Genitourinary: Reports no additional male genitourinary complaints and Reports as per HPI Musculoskeletal: Musculoskeletal: Denies arthralgias and Denies muscle weakness Integumentary/Breasts: Skin/Breast: Denies rash Neurologic: Denies vertigo, Denies dizziness, Reports syncope, Denies focal weakness, Denies loss of vision, Denies Sensory deficit (Neuro) and Denies weakness Psychiatric: Psychiatric: Reports no additional psychiatric complaints and Reports as per HPI Endocrine: Endocrine: Reports no additional endocri
[2021-01-03 17:08] LABS: Glucose Point of Care 134 mg/dl (65-105)
[2021-01-03] MEDS: INSULIN GLARGINE (*BKC) 100 UNITS/ML 18 UNITS SUB-Q (21:25)
[2021-01-03] MEDS: SERTRALINE HCL 25 MG TABLET PO (21:25)
[2021-01-03] MEDS: ATORVASTATIN 40 MG TABLET PO (21:25)
[2021-01-03 21:35] LABS: Glucose Point of Care 287 mg/dl (65-105)
[2021-01-04 05:42] VITALS: BP 148/69; PULSE 113; RESP 14; TEMP 36.2; O2SAT 93
--- NOTE | 2021-01-04 07:31 | PM.IMPN ---
Progress Note: A&P Assessment and Plan (1) Syncope and collapse: Code(s): R55 - Syncope and collapse Status: Acute Assessment and Plan: Continue midodrine and florinef. Continue lower extremity compression with socks. Patient was educated about the need to avoid supine position and be careful while changing position. Supportive care Additional Plan 1. Syncopal episode possibly secondary to orthostatic hypotension given history of autonomic dysregulation complication of diabetes mellitus: -patient remains somewhat orthostatic. -improving; currently asymptomatic. -significant supine hypertension and normal BP when checked in standing position however significant drop and positive orthostatic vitals noted - discussed with the patient that he needs to avoid supine position, care needs to be taken while changing positions, wear thigh high sarah-hose stockings -Neurology has been consulted. No medication changes were made. Neurology considering droxidopa Bilateral compression stockings to above the knees abdominal binder with ambulation Pt to sit or stand for at least 3 minutes to ensure stability, ambulate with extreme caution and push hydration at least 3-4L free water daily. 2. BPPV: - patent complains of sensation of room spinning; symptoms are in remission after patient was started on low dose meclizine - CT scan with no findings - Neurology recommendations reviewed. - Neuro exam performed by myself is grossly nonfocal and is not concerning for acute stroke DISPOSITION: Patient has been rendered homeless as of 12/30; social work is working on placement appreciate recommendations. Subjective Date/time seen: 01/04/21 07:31 S: Patient is examined at the bedside. There is no complaints. Interval history: 65-year-old male with past medical history significant for hypertension, hyperlipidemia, type 2 diabetes mellitus, peripheral neuropathy and chronic orthostatic hypotension secondary to autonomic dysregulation presented after having experienced a syncopal episode. Patient was recently admitted for similar concerns and was discharged on 12/25. Currently patient is awaiting placement. Review of Systems Review of Systems: All systems reviewed & are unremarkable except as noted in HPI and below Constitutional: Constitutional: Reports as per HPI, Denies chills, Denies fatigue, Denies fever(s), Denies lethargy, Denies malaise and Denies weakness Eyes: Eyes: Denies change in vision, Denies diplopia, Denies floaters, Denies loss of vision, Denies seeing flashes and Denies spots in vision ENT: Denies dysphagia, Denies vertigo, Denies dizziness, Denies nasal congestion, Denies nasal discharge, Denies nasal obstruction and Denies odynophagia Cardiovascular: Cardiovascular: Denies chest pain with activity, Denies diaphoresis, Reports syncope, Denies irregular heart rhythm, Denies claudication, Denies leg edema, Denies lightheadedness, Denies radiating jaw, neck or arm pain, Denies palpitations, Denies dyspnea and Denies dyspnea on exertion Respiratory: Respiratory: Denies chest congestion, Denies cough, Denies dyspnea, Denies dyspnea on exertion and Denies wheezing Gastrointestinal: Gastrointestinal: Denies abdominal pain, Denies dysphagia, Denies dyspepsia, Denies diarrhea, Denies nausea, Denies odynophagia and Denies vomiting Genitourinary: Genitourinary: Reports no additional male genitourinary complaints and Reports as per HPI Musculoskeletal: Musculoskeletal: Denies arthralgias and Denies muscle weakness Integumentary/Breasts: Skin/Breast: Denies rash Neurologic: Denies vertigo, Denies dizziness, Reports syncope, Denies focal weakness, Denies loss of vision, Denies Sensory deficit (Neuro) and Denies weakness Psychiatric: Psychiatric: Reports no additional psychiatric complaints and Reports as per HPI Endocrine: Endocrine: Reports no additional endocrine complaints, Reports as per HPI, Denies fatigue and Denies palpitations
[2021-01-04 08:43] LABS: Glucose Point of Care 150 mg/dl (65-105)
[2021-01-04] MEDS: MAGNESIUM OXIDE 400 MG TABLET PO (10:53)
[2021-01-04] MEDS: POTASSIUM CHLORIDE 20 MEQ TABLET.ER PO (10:53)
[2021-01-04] MEDS: MECLIZINE HCL 12.5 MG TABLET PO ×4 (10:54→20:38)
[2021-01-04] MEDS: MIDODRINE HCL 10 MG TABLET PO ×2 (10:54→20:38)
[2021-01-04] MEDS: CYANOCOBALAMIN 1,000 MCG TABLET 1000 MCG PO (10:54)
[2021-01-04] MEDS: GABAPENTIN 400 MG CAPSULE PO ×3 (10:54→17:36)
[2021-01-04] MEDS: ASPIRIN 81 MG ENTERIC TABLET PO (10:54)
[2021-01-04] MEDS: FLUDROCORTISONE ACETATE 0.1 MG TABLET PO (10:54)
[2021-01-04] MEDS: INSULIN ASPART (*BKC) 100 UNITS/ML 7 UNITS SUB-Q ×2 (10:57→12:24)
[2021-01-04] MEDS: INSULIN GLARGINE (*BKC) 100 UNITS/ML 30 UNITS SUB-Q (10:58)
[2021-01-04 11:56] LABS: Glucose Point of Care 241 mg/dl (65-105)
[2021-01-04] MEDS: INSULIN ASPART (*BKC) 100 UNITS/ML SUB-Q (12:24)
--- NOTE | 2021-01-04 12:31 | PCNWS ---
Weekly nutritional screen. Patient is tolerating current diet with adequate intake. He is eating on average 80% of meals ordered. No weight loss reported. No nutritional needs at this time.
[2021-01-04 14:00] VITALS: BP 191/80; PULSE 91; RESP 18; TEMP 36.2; O2SAT 98
--- NOTE | 2021-01-04 14:53 | PCNSR ---
On 01/04/21, the student, Andressa Turpin, provided care and completed [facility] documentation on this patient. I have reviewed the student's documentation and agree with the findings.
[2021-01-04 15:00] VITALS: BP 148/79; BP 185/80; BP 90/69
[2021-01-04 16:58] LABS: Glucose Point of Care 152 mg/dl (65-105)
--- NOTE | 2021-01-04 17:32 | PC.NURSE ---
Dr. Veloz called and stated that he wanted blood pressure and orthostatics to be taken no sooner than 15 minutes after the administration of blood pressure medications and no later than 30 minutes after administration of blood pressure medications. The information was passed along to the CNAs as well.
[2021-01-04] MEDS: SERTRALINE HCL 25 MG TABLET PO (20:38)
[2021-01-04] MEDS: ATORVASTATIN 40 MG TABLET PO (20:38)
[2021-01-04] MEDS: INSULIN GLARGINE (*BKC) 100 UNITS/ML 18 UNITS SUB-Q (20:46)
[2021-01-04 21:00] VITALS: BP 183/99; PULSE 80; PULSE 93; RESP 16; TEMP 36.6; O2SAT 100
[2021-01-04 21:04] VITALS: BP 135/67; PULSE 99
[2021-01-04 21:07] VITALS: BP 106/47; PULSE 101
[2021-01-04 21:40] LABS: Glucose Point of Care 208 mg/dl (65-105)
[2021-01-05] VITALS (11 sets, daily range): BP systolic 76–199; BP diastolic 42–94; PULSE 91–110; RESP 14–22; TEMP 36.5–37; O2SAT 95–100
[2021-01-05 03:08] LABS: Glucose Point of Care 256 mg/dl (65-105)
[2021-01-05 06:37] LABS: Hematocrit 35.1 % (42.0-52.0); Hemoglobin 11.7 g/dL (14.0-18.0); Mean Corpuscular HGB Conc 33.3 g/dl (32-36); Mean Corpuscular Hemoglobin 31.4 pg (26-34); Mean Corpuscular Volume 94.1 fl (80-100); Mean Platelet Volume 10.7 fl (7.4-10.4); Platelet Count Result 190 k/mm3 (150-375); Red Blood Count 3.73 M/mm3 (4.6-6.20); Red Cell Distribution Width 13.6 % (11.5-14.5); White Blood Count 4.6 K/mm3 (4.5-10.0)
[2021-01-05 06:49] LABS: Anion Gap 7 mmol/L (8-16); Blood Urea Nitrogen 16 mg/dL (9-20); Calcium 8.5 mg/dL (8.4-10.2); Carbon Dioxide 29 mmol/L (22-30); Chloride 101 mmol/L (98-107); Estimated CRCL calculation 77 ml/min; Estimated Glomerular Filt Rate > 60; Glucose 237 mg/dL (65-110); Potassium 3.7 mmol/L (3.4-5.0); Sodium 137 mmol/L (137-145)
[2021-01-05 07:55] LABS: Glucose Point of Care 204 mg/dl (65-105)
[2021-01-05] MEDS: MECLIZINE HCL 12.5 MG TABLET PO ×4 (09:08→22:22)
[2021-01-05] MEDS: POTASSIUM CHLORIDE 20 MEQ TABLET.ER PO (09:08)
[2021-01-05] MEDS: MAGNESIUM OXIDE 400 MG TABLET PO (09:08)
[2021-01-05] MEDS: MIDODRINE HCL 10 MG TABLET PO ×3 (09:08→22:21)
[2021-01-05] MEDS: INSULIN ASPART (*BKC) 100 UNITS/ML 7 UNITS SUB-Q ×3 (09:09→17:13)
[2021-01-05] MEDS: FLUDROCORTISONE ACETATE 0.1 MG TABLET PO (09:09)
[2021-01-05] MEDS: INSULIN GLARGINE (*BKC) 100 UNITS/ML 30 UNITS SUB-Q (09:09)
[2021-01-05] MEDS: ASPIRIN 81 MG ENTERIC TABLET PO (09:09)
[2021-01-05] MEDS: GABAPENTIN 400 MG CAPSULE PO ×3 (09:09→17:14)
[2021-01-05] MEDS: CYANOCOBALAMIN 1,000 MCG TABLET 1000 MCG PO (09:09)
[2021-01-05] MEDS: INSULIN ASPART (*BKC) 100 UNITS/ML SUB-Q (09:10)
--- NOTE | 2021-01-05 11:19 | PC.NURSE ---
On 01/05/21, the student, [ Ольга Johnson], provided care and completed [facility] documentation on this patient. I have reviewed the student's documentation and agree with the findings.
[2021-01-05 12:11] LABS: Glucose Point of Care 140 mg/dl (65-105)
--- NOTE | 2021-01-05 15:37 | PM.IMPN ---
Progress Note: A&P Assessment and Plan (1) Syncope and collapse: Code(s): R55 - Syncope and collapse Status: Acute Assessment and Plan: Continue midodrine and florinef. Continue lower extremity compression with socks. Patient was educated about the need to avoid supine position and be careful while changing position. Supportive care Additional Plan 1. Syncopal episode possibly secondary to orthostatic hypotension given history of autonomic dysregulation complication of diabetes mellitus: -patient remains somewhat orthostatic. At the time of my examination he is asymptomatic. -improving; currently asymptomatic. -significant supine hypertension and normal BP when checked in standing position however significant drop and positive orthostatic vitals noted - discussed with the patient that he needs to avoid supine position, care needs to be taken while changing positions, wear thigh high sarah-hose stockings -Neurology has been consulted. No medication changes were made. Neurology considering droxidopa Bilateral compression stockings to above the knees abdominal binder with ambulation Pt to sit or stand for at least 3 minutes to ensure stability, ambulate with extreme caution and push hydration at least 3-4L free water daily. 2. BPPV: - patent complains of sensation of room spinning; symptoms are in remission after patient was started on low dose meclizine - CT scan with no findings - Neurology recommendations reviewed. - Neuro exam performed by myself is grossly nonfocal and is not concerning for acute stroke DISPOSITION: Patient has been rendered homeless as of 12/30; social work is working on placement appreciate recommendations. Subjective Date/time seen: 01/05/21 15:37 S: Patient was examined at the bedside. He was sleeping comfortably. He did not offer any complaints. There were no events overnight. Interval history: 66-year-old male with past medical history significant for hypertension, hyperlipidemia, type 2 diabetes mellitus, peripheral neuropathy and chronic orthostatic hypotension secondary to autonomic dysregulation presented after having experienced a syncopal episode. Patient was recently admitted for similar concerns and was discharged on 12/25. Currently patient is awaiting placement. Review of Systems Review of Systems: All systems reviewed & are unremarkable except as noted in HPI and below Constitutional: Constitutional: Reports as per HPI, Denies chills, Denies fatigue, Denies fever(s), Denies lethargy, Denies malaise and Denies weakness Eyes: Eyes: Denies change in vision, Denies diplopia, Denies floaters, Denies loss of vision, Denies seeing flashes and Denies spots in vision ENT: Denies dysphagia, Denies vertigo, Denies dizziness, Denies nasal congestion, Denies nasal discharge, Denies nasal obstruction and Denies odynophagia Cardiovascular: Cardiovascular: Denies chest pain with activity, Denies diaphoresis, Reports syncope, Denies irregular heart rhythm, Denies claudication, Denies leg edema, Denies lightheadedness, Denies radiating jaw, neck or arm pain, Denies palpitations, Denies dyspnea and Denies dyspnea on exertion Respiratory: Respiratory: Denies chest congestion, Denies cough, Denies dyspnea, Denies dyspnea on exertion and Denies wheezing Gastrointestinal: Gastrointestinal: Denies abdominal pain, Denies dysphagia, Denies dyspepsia, Denies diarrhea, Denies nausea, Denies odynophagia and Denies vomiting Genitourinary: Genitourinary: Reports no additional male genitourinary complaints and Reports as per HPI Musculoskeletal: Musculoskeletal: Denies arthralgias and Denies muscle weakness Integumentary/Breasts: Skin/Breast: Denies rash Neurologic: Denies vertigo, Denies dizziness, Reports syncope, Denies focal weakness, Denies loss of vision, Denies Sensory deficit (Neuro) and Denies weakness Psychiatric: Psychiatric: Reports no additional psychiatric complaints and Reports as per HPI End
[2021-01-05 16:47] LABS: Glucose Point of Care 140 mg/dl (65-105)
[2021-01-05] MEDS: ATORVASTATIN 40 MG TABLET PO (22:22)
[2021-01-05] MEDS: INSULIN GLARGINE (*BKC) 100 UNITS/ML 18 UNITS SUB-Q (22:25)
[2021-01-05] MEDS: SERTRALINE HCL 25 MG TABLET PO (22:57)
[2021-01-05 23:01] LABS: Glucose Point of Care 120 mg/dl (65-105)
[2021-01-06] VITALS (9 sets, daily range): BP systolic 94–166; BP diastolic 43–84; PULSE 76–127; RESP 18–20; TEMP 36.7–37.8; O2SAT 94–98
[2021-01-06 08:08] LABS: Glucose Point of Care 105 mg/dl (65-105)
[2021-01-06] MEDS: FLUDROCORTISONE ACETATE 0.1 MG TABLET PO (09:20)
[2021-01-06] MEDS: MECLIZINE HCL 12.5 MG TABLET PO ×4 (09:20→20:37)
[2021-01-06] MEDS: ASPIRIN 81 MG ENTERIC TABLET PO (09:20)
[2021-01-06] MEDS: CYANOCOBALAMIN 1,000 MCG TABLET 1000 MCG PO (09:21)
[2021-01-06] MEDS: INSULIN ASPART (*BKC) 100 UNITS/ML 7 UNITS SUB-Q ×3 (09:21→17:09)
[2021-01-06] MEDS: MAGNESIUM OXIDE 400 MG TABLET PO (09:21)
[2021-01-06] MEDS: GABAPENTIN 400 MG CAPSULE PO ×3 (09:22→18:16)
[2021-01-06] MEDS: INSULIN GLARGINE (*BKC) 100 UNITS/ML 30 UNITS SUB-Q (09:23)
--- NOTE | 2021-01-06 11:00 | PM.IMPN ---
Progress Note: A&P Assessment and Plan (1) Syncope and collapse: Code(s): R55 - Syncope and collapse Status: Acute Assessment and Plan: Continue midodrine and florinef. Continue lower extremity compression with socks. Patient was educated about the need to avoid supine position and be careful while changing position. Supportive care (2) Visual problems: Code(s): H54.7 - Unspecified visual loss Status: Acute Assessment and Plan: Patient is having visual problems. There is no eye pain, or redness. He has issues with his balance. We will do a brain CT to rule out an ischemic event. Additional Plan 1. Syncopal episode possibly secondary to orthostatic hypotension given history of autonomic dysregulation complication of diabetes mellitus: -patient remains somewhat orthostatic. At the time of my examination he is asymptomatic. -improving; currently asymptomatic. -significant supine hypertension and normal BP when checked in standing position however significant drop and positive orthostatic vitals noted - discussed with the patient that he needs to avoid supine position, care needs to be taken while changing positions, wear thigh high sarah-hose stockings -Neurology has been consulted. No medication changes were made. Neurology considering droxidopa Bilateral compression stockings to above the knees abdominal binder with ambulation Pt to sit or stand for at least 3 minutes to ensure stability, ambulate with extreme caution and push hydration at least 3-4L free water daily. 2. BPPV: - patent complains of sensation of room spinning; symptoms are in remission after patient was started on low dose meclizine - CT scan with no findings - Neurology recommendations reviewed. - Neuro exam performed by myself is grossly nonfocal and is not concerning for acute stroke 3. Acute visual problems. Unclear etiology. On exam the patient is non focal. He also has difficulties with his balance. Obtain head CT; neurochecks, cardiac monitoring, fall precautions, neuro consult. DISPOSITION: Patient has been rendered homeless as of 12/30; social work is working on placement appreciate recommendations. Subjective Date/time seen: 01/06/21 12:00 S: Patient was examined at the bedside. He reports blurry vision. He has never worn lenses. He is trying to reach for things that are not there. He denies any other . He was sleeping peacefully. Breathing is normal. Interval history: 66-year-old male with past medical history significant for hypertension, hyperlipidemia, type 2 diabetes mellitus, peripheral neuropathy and chronic orthostatic hypotension secondary to autonomic dysregulation presented after having experienced a syncopal episode. Patient was recently admitted for similar concerns and was discharged on 12/25. Currently patient is awaiting placement. Review of Systems Review of Systems: All systems reviewed & are unremarkable except as noted in HPI and below Constitutional: Constitutional: Reports as per HPI, Denies chills, Denies fatigue, Denies fever(s), Denies lethargy, Denies malaise and Denies weakness Eyes: Eyes: Reports blurry vision, Reports change in vision, Denies diplopia, Denies floaters, Reports loss of vision, Reports other visual disturbances, Denies seeing flashes and Denies spots in vision ENT: Denies dysphagia, Denies vertigo, Denies dizziness, Denies nasal congestion, Denies nasal discharge, Denies nasal obstruction and Denies odynophagia Cardiovascular: Cardiovascular: Denies chest pain with activity, Denies diaphoresis, Reports syncope, Denies irregular heart rhythm, Denies claudication, Denies leg edema, Denies lightheadedness, Denies radiating jaw, neck or arm pain, Denies palpitations, Denies dyspnea and Denies dyspnea on exertion Respiratory: Respiratory: Denies chest congestion, Denies cough, Denies dyspnea, Denies dyspnea on exertion and Denies wheezing Gastrointestinal: Gastrointestinal: Denies
[2021-01-06] MEDS: POTASSIUM CHLORIDE 20 MEQ TABLET.ER PO (11:06)
[2021-01-06 11:46] LABS: Glucose Point of Care 133 mg/dl (65-105)
[2021-01-06] MEDS: MIDODRINE HCL 10 MG TABLET PO ×2 (13:49→20:31)
[2021-01-06 17:11] LABS: Glucose Point of Care 192 mg/dl (65-105)
--- NOTE | 2021-01-06 18:16 | PM.PNCARD ---
Progress Note: A&P Assessment and Plan (1) Syncope due to orthostatic hypotension: Code(s): I95.1 - Orthostatic hypotension Status: Acute Assessment and Plan: Patient now reports spinning sensation suggestive of vertigo along with nausea which is relatively new. He remains orthostatic. Compression stockings thigh-high to be worn during the day and with any ambulation. - Neurology has been consulted. No medication changes were made. Recommended considering droxidopa. Reinforced with nursing staff importance of administering midodrine 15-30 minutes prior to patient getting out of bed. - abdominal binder with ambulation - Pt to sit or stand for at least 3 minutes to ensure stability, ambulate with extreme caution and push hydration at least 3-4L free water daily until seen by Neurology Will sign off. Defer further recommendations and management to primary service and Neurology. 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 Please do not hesitate to contact us with any additional questions or concerns. (2) Acute on chronic kidney failure: Qualifiers: Acute renal failure type: unspecified Chronic kidney disease stage: unspecified stage Qualified Code(s): N17.9 - Acute kidney failure, unspecified; N18.9 - Chronic kidney disease, unspecified Code(s): N17.9 - Acute kidney failure, unspecified; N18.9 - Chronic kidney disease, unspecified Status: Acute Assessment and Plan: Resolved with IV fluids. (3) Hypertension associated with type 2 diabetes mellitus: Code(s): E11.59 - Type 2 diabetes mellitus with other circulatory complications; I15.2 - Hypertension secondary to endocrine disorders Status: Acute Assessment and Plan: Supine hypertension significant but acceptable. As above. (4) Paroxysmal atrial fibrillation: Code(s): I48.0 - Paroxysmal atrial fibrillation Status: Chronic Assessment and Plan: I have no documentation of atrial fibrillation in our system by EKG dating back to 2019. Although he is not a candidate for anticoagulation due to recurrent falls as he has had multiple admissions for symptomatic orthostatic hypotension I would recommend discontinuation of metoprolol at this time despite the potential in reducing recurrence risk for atrial fibrillation. Metoprolol discontinued as the benefits likely outweighed by the risks due to blunting compensatory heart rate response to positional hypotension. Continue telemetry. Aspirin 81 mg daily. Subjective Date/time seen: 01/06/21 18:16 cardiology follow-up for orthostatic hypotension Date of service 01/06/2021: Patient says he is doing better. He says that he has not had a syncopal episode in a couple of days. He does say that he got up quickly this morning from a lying position to use the bathroom and was dizzy and lightheaded after that. According to the nurse, he does not notify staff when he is going to get up and ambulate therefore, his midodrine is not being given 15-30 minutes before he gets out of bed. Review of Systems Review of Systems: All systems reviewed & are unremarkable except as noted in HPI and below Constitutional: Constitutional: Reports as per HPI, Reports no additional constitutional complaints and Denies headache(s) Eyes: Eyes: Reports as per HPI and Reports no additional eye complaints ENT: Reports system reviewed and no additional complaints, except as documented, Reports as per HPI and Denies headache(s) Cardiovascular: Cardiovascular: Reports as per HPI, Reports no additional cardiovascular complaints, Denies chest pain, Denies diaphoresis, Denies pedal edema, Denies leg edema, Reports lightheadedness, Denies palpitations, Denies dyspnea and Denies dyspnea on exertion Respiratory: Respiratory: Reports as per HPI, Reports no additional respiratory complaints, Denies dyspnea and Denies dyspnea on exertion Gastrointestinal: Gas
[2021-01-06 20:30] LABS: Glucose Point of Care 230 mg/dl (65-105)
[2021-01-06] MEDS: ATORVASTATIN 40 MG TABLET PO (20:37)
[2021-01-06] MEDS: SERTRALINE HCL 25 MG TABLET PO (20:38)
[2021-01-06] MEDS: INSULIN GLARGINE (*BKC) 100 UNITS/ML 18 UNITS SUB-Q (20:39)
[2021-01-07] VITALS (9 sets, daily range): BP systolic 69–179; BP diastolic 34–74; PULSE 84–110; RESP 14–18; TEMP 36.2–37.1; O2SAT 92–98
[2021-01-07 07:57] LABS: Glucose Point of Care 248 mg/dl (65-105)
[2021-01-07] MEDS: MIDODRINE HCL 10 MG TABLET PO ×3 (09:08→22:24)
[2021-01-07] MEDS: POTASSIUM CHLORIDE 20 MEQ TABLET.ER PO (09:08)
[2021-01-07] MEDS: ASPIRIN 81 MG ENTERIC TABLET PO (09:08)
[2021-01-07] MEDS: MECLIZINE HCL 12.5 MG TABLET PO ×4 (09:08→22:24)
[2021-01-07] MEDS: GABAPENTIN 400 MG CAPSULE PO ×3 (09:09→17:20)
[2021-01-07] MEDS: INSULIN ASPART (*BKC) 100 UNITS/ML 7 UNITS SUB-Q ×3 (09:09→18:00)
[2021-01-07] MEDS: FLUDROCORTISONE ACETATE 0.1 MG TABLET PO (09:09)
[2021-01-07] MEDS: MAGNESIUM OXIDE 400 MG TABLET PO (09:09)
[2021-01-07] MEDS: CYANOCOBALAMIN 1,000 MCG TABLET 1000 MCG PO (09:09)
[2021-01-07] MEDS: INSULIN ASPART (*BKC) 100 UNITS/ML SUB-Q (09:10)
[2021-01-07] MEDS: INSULIN GLARGINE (*BKC) 100 UNITS/ML 30 UNITS SUB-Q (09:13)
[2021-01-07 11:27] LABS: Glucose Point of Care 144 mg/dl (65-105)
--- NOTE | 2021-01-07 14:15 | PM.IMPN ---
Progress Note: A&P Assessment and Plan (1) Syncope and collapse: Code(s): R55 - Syncope and collapse Status: Acute Assessment and Plan: Continue midodrine and florinef. Midodrine was increased to 50 mg p.o. 4 times daily as needed per Neurology recommendation. Continue lower extremity compression with socks; 20 mm compression. Patient was educated about the need to avoid supine position and be careful while changing position. Supportive care (2) Visual problems: Code(s): H54.7 - Unspecified visual loss Status: Acute Assessment and Plan: Patient is having visual problems, secondary to syncope with transient hypotension. There resolved at this time. No further evaluation. Additional Plan 1. Syncopal episode possibly secondary to orthostatic hypotension given history of autonomic dysregulation complication of diabetes mellitus: -patient remains somewhat orthostatic. At the time of my examination he is asymptomatic. -improving; currently asymptomatic. -significant supine hypertension and normal BP when checked in standing position however significant drop and positive orthostatic vitals noted - discussed with the patient that he needs to avoid supine position, care needs to be taken while changing positions, wear thigh high sarah-hose stockings -Neurology has been consulted. No medication changes were made. Neurology considering droxidopa Bilateral compression stockings to above the knees abdominal binder with ambulation Pt to sit or stand for at least 3 minutes to ensure stability, ambulate with extreme caution and push hydration at least 3-4L free water daily. 2. BPPV: - patent complains of sensation of room spinning; symptoms are in remission after patient was started on low dose meclizine - CT scan with no findings - Neurology recommendations reviewed. - Neuro exam performed by myself is grossly nonfocal and is not concerning for acute stroke 3. Acute visual problems. Likely part of the syncopal episode the he has been experiencing. Remaining neurologic exam unremarkable. Head CT without any acute findings. Per in your condition my during increased to 15 mg 4 times daily as needed. DISPOSITION: Patient has been rendered homeless as of 12/30; social work is working on placement appreciate recommendations. Subjective Date/time seen: 01/07/21 11:15 S: Patient was examined at the bedside. This morning his vision is normal. He was dizzy at the time of my examination. Earlier he was dizzy and fell to his knees. No trauma. He did not hit his head. Interval history: 66-year-old male with past medical history significant for hypertension, hyperlipidemia, type 2 diabetes mellitus, peripheral neuropathy and chronic orthostatic hypotension secondary to autonomic dysregulation presented after having experienced a syncopal episode. Patient was recently admitted for similar concerns and was discharged on 12/25. Currently patient is awaiting placement. Review of Systems Review of Systems: All systems reviewed & are unremarkable except as noted in HPI and below Constitutional: Constitutional: Reports as per HPI, Denies chills, Denies fatigue, Denies fever(s), Denies lethargy, Denies malaise and Denies weakness Eyes: Eyes: Reports blurry vision, Reports change in vision, Denies diplopia, Denies floaters, Reports loss of vision, Reports other visual disturbances, Denies seeing flashes and Denies spots in vision ENT: Denies dysphagia, Denies vertigo, Denies dizziness, Denies nasal congestion, Denies nasal discharge, Denies nasal obstruction and Denies odynophagia Cardiovascular: Cardiovascular: Denies chest pain with activity, Denies diaphoresis, Reports syncope, Denies irregular heart rhythm, Denies claudication, Denies leg edema, Denies lightheadedness, Denies radiating jaw, neck or arm pain, Denies palpitations, Denies dyspnea and Denies dyspnea on exertion Respiratory: Respiratory: Denies chest congestion,
[2021-01-07 16:08] LABS: Glucose Point of Care 79 mg/dl (65-105)
[2021-01-07] MEDS: ATORVASTATIN 40 MG TABLET PO (22:24)
[2021-01-07] MEDS: MIDODRINE HCL 2.5 MG TABLET 5 MG PO (22:24)
[2021-01-07] MEDS: SERTRALINE HCL 25 MG TABLET PO (22:24)
[2021-01-07 22:46] LABS: Glucose Point of Care 94 mg/dl (65-105)
[2021-01-08] VITALS (7 sets, daily range): BP systolic 85–178; BP diastolic 39–75; PULSE 72–95; RESP 16–18; TEMP 36.3–36.5; O2SAT 94–97
--- NOTE | 2021-01-08 07:32 | PM.IMPN ---
Progress Note: A&P Assessment and Plan (1) Syncope and collapse: Code(s): R55 - Syncope and collapse Status: Acute Assessment and Plan: Continue midodrine and florinef. Midodrine was increased to 15 mg p.o. 4 times daily as needed per Neurology recommendation. Continue lower extremity compression with socks; 20 mm compression. Patient was educated about the need to avoid supine position and be careful while changing position. Supportive care Encourage ambulation Q shift. Progressive standing station. (2) Visual problems: Code(s): H54.7 - Unspecified visual loss Status: Acute Assessment and Plan: Patient is having visual problems, secondary to syncope with transient hypotension. There resolved at this time. No further evaluation. Additional Plan 1. Syncopal episode possibly secondary to orthostatic hypotension given history of autonomic dysregulation complication of diabetes mellitus: -patient remains somewhat orthostatic. At the time of my examination he is asymptomatic. -improving; currently asymptomatic. -significant supine hypertension and normal BP when checked in standing position however significant drop and positive orthostatic vitals noted - discussed with the patient that he needs to avoid supine position, care needs to be taken while changing positions, wear thigh high sarah-hose stockings -Neurology has been consulted. No medication changes were made. Neurology considering droxidopa Bilateral compression stockings to above the knees; obtained 20 mm of mercury compression stockings abdominal binder with ambulation Pt to sit or stand for at least 3 minutes to ensure stability, ambulate with extreme caution and push hydration at least 3-4L free water daily. 2. BPPV: - patent complains of sensation of room spinning; symptoms are in remission after patient was started on low dose meclizine - CT scan with no findings - Neurology recommendations reviewed. - Neuro exam performed by myself is grossly nonfocal and is not concerning for acute stroke 3. Acute visual problems. Likely part of the syncopal episode the he has been experiencing. Remaining neurologic exam unremarkable. Head CT without any acute findings. Per in your condition my during increased to 15 mg 4 times daily as needed. DISPOSITION: Patient has been rendered homeless as of 12/30; social work is working on placement appreciate recommendations. Subjective Date/time seen: 01/08/21 07:32 S: Patient was examined at the bedside. He is sleeping peacefully. He did not offer any complaints. Patient the fell to his knees yesterday after feeling dizzy. His midodrine was increased per Neurology recommendations. Review of Systems Review of Systems: All systems reviewed & are unremarkable except as noted in HPI and below Constitutional: Constitutional: Reports as per HPI, Denies chills, Denies fatigue, Denies fever(s), Denies lethargy, Denies malaise and Denies weakness Eyes: Eyes: Reports blurry vision, Reports change in vision, Denies diplopia, Denies floaters, Reports loss of vision, Reports other visual disturbances, Denies seeing flashes and Denies spots in vision ENT: Denies dysphagia, Denies vertigo, Denies dizziness, Denies nasal congestion, Denies nasal discharge, Denies nasal obstruction and Denies odynophagia Cardiovascular: Cardiovascular: Denies chest pain with activity, Denies diaphoresis, Reports syncope, Denies irregular heart rhythm, Denies claudication, Denies leg edema, Denies lightheadedness, Denies radiating jaw, neck or arm pain, Denies palpitations, Denies dyspnea and Denies dyspnea on exertion Respiratory: Respiratory: Denies chest congestion, Denies cough, Denies dyspnea, Denies dyspnea on exertion and Denies wheezing Gastrointestinal: Gastrointestinal: Denies abdominal pain, Denies dysphagia, Denies dyspepsia, Denies diarrhea, Denies nausea, Denies odynophagia and Denies vomiting Genitourinary: Genitourinar
[2021-01-08 08:34] LABS: Glucose Point of Care 83 mg/dl (65-105)
[2021-01-08] MEDS: MIDODRINE HCL 10 MG TABLET PO ×4 (09:01→21:46)
[2021-01-08] MEDS: MECLIZINE HCL 12.5 MG TABLET PO ×4 (09:02→21:46)
[2021-01-08] MEDS: CYANOCOBALAMIN 1,000 MCG TABLET 1000 MCG PO (09:02)
[2021-01-08] MEDS: FLUDROCORTISONE ACETATE 0.1 MG TABLET PO (09:02)
[2021-01-08] MEDS: POTASSIUM CHLORIDE 20 MEQ TABLET.ER PO (09:02)
[2021-01-08] MEDS: MAGNESIUM OXIDE 400 MG TABLET PO (09:02)
[2021-01-08] MEDS: GABAPENTIN 400 MG CAPSULE PO ×3 (09:02→16:18)
[2021-01-08] MEDS: MIDODRINE HCL 2.5 MG TABLET 5 MG PO ×3 (09:02→16:17)
[2021-01-08] MEDS: ASPIRIN 81 MG ENTERIC TABLET PO (09:02)
[2021-01-08 11:56] LABS: Glucose Point of Care 141 mg/dl (65-105)
[2021-01-08] MEDS: INSULIN ASPART (*BKC) 100 UNITS/ML 7 UNITS SUB-Q ×2 (12:54→16:18)
[2021-01-08 16:18] LABS: Glucose Point of Care 159 mg/dl (65-105)
[2021-01-08 21:33] LABS: Glucose Point of Care 114 mg/dl (65-105)
[2021-01-08] MEDS: ATORVASTATIN 40 MG TABLET PO (21:46)
[2021-01-08] MEDS: SERTRALINE HCL 25 MG TABLET PO (21:47)
[2021-01-08] MEDS: INSULIN GLARGINE (*BKC) 100 UNITS/ML 18 UNITS SUB-Q (21:48)
[2021-01-09] VITALS (7 sets, daily range): BP systolic 90–167; BP diastolic 42–83; PULSE 83–86; RESP 14–18; TEMP 36.4–37.3; O2SAT 93–99
[2021-01-09] MEDS: INSULIN ASPART (*BKC) 100 UNITS/ML 7 UNITS SUB-Q ×3 (08:11→17:19)
[2021-01-09] MEDS: MAGNESIUM OXIDE 400 MG TABLET PO (08:12)
[2021-01-09] MEDS: POTASSIUM CHLORIDE 20 MEQ TABLET.ER PO (08:12)
[2021-01-09] MEDS: MIDODRINE HCL 10 MG TABLET PO ×3 (08:12→17:20)
[2021-01-09] MEDS: MIDODRINE HCL 2.5 MG TABLET 5 MG PO ×3 (08:12→17:20)
[2021-01-09] MEDS: FLUDROCORTISONE ACETATE 0.1 MG TABLET PO (08:12)
[2021-01-09] MEDS: ASPIRIN 81 MG ENTERIC TABLET PO (08:12)
[2021-01-09] MEDS: CYANOCOBALAMIN 1,000 MCG TABLET 1000 MCG PO (08:12)
[2021-01-09] MEDS: GABAPENTIN 400 MG CAPSULE PO ×3 (08:13→17:20)
[2021-01-09] MEDS: MECLIZINE HCL 12.5 MG TABLET PO ×4 (08:13→21:18)
[2021-01-09] MEDS: INSULIN GLARGINE (*BKC) 100 UNITS/ML 30 UNITS SUB-Q (08:14)
[2021-01-09 09:00] LABS: Glucose Point of Care 131 mg/dl (65-105)
[2021-01-09 12:05] LABS: Glucose Point of Care 200 mg/dl (65-105)
--- NOTE | 2021-01-09 15:10 | PM.IMPN ---
Progress Note: A&P Assessment and Plan (1) Syncope and collapse: Code(s): R55 - Syncope and collapse Status: Acute Assessment and Plan: Continue midodrine and florinef. He will be on midodrine 5 mg on a as needed basis every 6 are as per Neurology recommendation. Continue lower extremity compression with compression stockings with 20 mm compression. Patient was educated about the need to avoid supine position and be careful while changing position. Supportive care Encourage ambulation Q shift. Progressive standing Bilateral compression stockings to above the knees; obtained 20 mm of mercury compression stockings abdominal binder with ambulation Pt to sit or stand for at least 3 minutes to ensure stability, ambulate with extreme caution and push hydration at least 3-4L free water daily. Neurology recommendations appreciated. Neurology service is considering droxidopa. (2) Visual problems: Code(s): H54.7 - Unspecified visual loss Status: Acute Assessment and Plan: Patient is having visual problems, secondary to syncope with transient hypotension. There resolved at this time. No further evaluation. Additional Plan 2. BPPV: - patent complains of sensation of room spinning; symptoms are in remission after patient was started on low dose meclizine - CT scan with no findings - Neurology recommendations reviewed and appreciated - Neuro exam performed by myself is grossly nonfocal and is not concerning for acute stroke DISPOSITION: Patient has been rendered homeless as of 12/30; social work is working on placement to SNF appreciate recommendations. Subjective Date/time seen: 01/09/21 15:10 He denied have any significant symptoms today. He denied have any dizziness or lightheadedness when he stand up or tries to ambulate. Interval history: 66-year-old male with past medical history significant for hypertension, hyperlipidemia, type 2 diabetes mellitus, peripheral neuropathy and chronic orthostatic hypotension secondary to autonomic dysregulation presented after having experienced a syncopal episode. Patient was recently admitted for similar concerns and was discharged on 12/25. Currently patient is awaiting placement. 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 oriented x3 and grossly nonfocal neurological exam Psychiatric cooperative appropriate mood and affect Extremities no edema Objective Data Vital Signs Vital Signs: Vital Signs - 24 hr 01/08/21 20:35 01/08/21 21:20 01/08/21 22:05 Temperature 36.5 C Pulse Rate 90 79 Respiratory Rate 18 18 Blood Pressure 156/64 H Pulse Oximetry 96 94 96 01/08/21 22:08 01/08/21 22:10 01/09/21 05:54 Temperature 36.4 C Pulse Rate 82 90 86 Respiratory Rate 18 Blood Pressure 120/39 L 85/41 L 125/63 Pulse Oximetry 98 01/09/21 07:50 01/09/21 07:55 01/09/21 08:00 Temperature Pulse Rate Respiratory Rate Blood Pressure 167/78 H 133/53 L 90/42 L Pulse Oximetry 01/09/21 14:20 Temperature 36.7 C Pulse Rate 84 Respiratory Rate 14 Blood Pressure 156/83 H Pulse Oximetry 99 Intake/Output Intake/Output: Intake & Output 01/06/21 01/07/21 01/08/21 01/09/21 23:59 23:59 23:59 23:59 Intake Total 2300 1060 1892 600 Output Total 500 3850 1050 1000 Balance 1800 -2790 842 -400 Meds/Results Medications: Active Medications Generic Name Dose Route Start Last Admin Trade Name Freq PRN Reason Stop Dose Admin Acetaminophen 650 mg 12/28/20 05:09 12/29/20 14:57 Acetaminophen 325 Mg Tablet PO 650 mg Q4H PRN Administration Mild Pain (1-3) Or Fever Aspirin 81 mg 12/28/20 09:00 01/09/21 08:12 Aspirin 81 Mg E
[2021-01-09 16:33] LABS: Glucose Point of Care 188 mg/dl (65-105)
--- NOTE | 2021-01-09 17:47 | PC.NURSE ---
patient was asking to have a shower tonight. midodrine given and blood pressure checked: 143/72 laying, 114/48 sitting and 80/38 standing. discussed activity with patient. no shower at this time. patient verbalizes understanding. patient encouraged to drink water.
[2021-01-09 21:04] LABS: Glucose Point of Care 170 mg/dl (65-105)
[2021-01-09] MEDS: INSULIN GLARGINE (*BKC) 100 UNITS/ML 18 UNITS SUB-Q (21:14)
[2021-01-09] MEDS: HEPARIN SODIUM 5,000 UNITS/ML VIAL 5000 UNITS SUB-Q (21:18)
[2021-01-09] MEDS: SERTRALINE HCL 25 MG TABLET PO (21:18)
[2021-01-09] MEDS: ATORVASTATIN 40 MG TABLET PO (21:18)
--- NOTE | 2021-01-10 02:23 | PC.NURSE ---
Patient was found in the hallway by staff walking. Patient was very unsteady and was led back to his bed. Patient was not oriented to place and said he needed to go to the hospital because something was not right. Patient had stated earlier during his assessment that he knew how to deactivate his bed alarm and that he was tired of it going off every time he moved. i educated the patient that the bed alarm is in place to keep him safe and from falling. I reiterated to the patient the importance of calling before attempting to get out of bed. Patient stated he would call but patient does have periods of confusion.
[2021-01-10 04:10] VITALS: BP 136/58; BP 162/68; BP 96/48
[2021-01-10 05:31] VITALS: BP 162/60; PULSE 83; RESP 18; TEMP 36.6; O2SAT 93
[2021-01-10] MEDS: HEPARIN SODIUM 5,000 UNITS/ML VIAL 5000 UNITS SUB-Q ×2 (05:42→12:22)
[2021-01-10 07:53] LABS: Glucose Point of Care 245 mg/dl (65-105)
[2021-01-10 08:05] VITALS: BP 116/57
[2021-01-10 08:10] VITALS: BP 115/95
[2021-01-10] MEDS: CYANOCOBALAMIN 1,000 MCG TABLET 1000 MCG PO (08:28)
[2021-01-10] MEDS: POTASSIUM CHLORIDE 20 MEQ TABLET.ER PO (08:28)
[2021-01-10] MEDS: ASPIRIN 81 MG ENTERIC TABLET PO (08:28)
[2021-01-10] MEDS: MIDODRINE HCL 2.5 MG TABLET 5 MG PO ×2 (08:28→12:22)
[2021-01-10] MEDS: MECLIZINE HCL 12.5 MG TABLET PO ×2 (08:28→12:22)
[2021-01-10] MEDS: MAGNESIUM OXIDE 400 MG TABLET PO (08:29)
[2021-01-10] MEDS: GABAPENTIN 400 MG CAPSULE PO ×2 (08:29→12:22)
[2021-01-10] MEDS: MIDODRINE HCL 10 MG TABLET PO ×2 (08:29→12:22)
[2021-01-10] MEDS: FLUDROCORTISONE ACETATE 0.1 MG TABLET PO (08:29)
[2021-01-10] MEDS: INSULIN GLARGINE (*BKC) 100 UNITS/ML 30 UNITS SUB-Q (08:32)
[2021-01-10] MEDS: INSULIN ASPART (*BKC) 100 UNITS/ML SUB-Q (08:33)
[2021-01-10] MEDS: INSULIN ASPART (*BKC) 100 UNITS/ML 7 UNITS SUB-Q ×2 (08:33→12:19)
[2021-01-10 09:40] VITALS: BP 160/80
[2021-01-10 11:59] LABS: Glucose Point of Care 180 mg/dl (65-105)
--- NOTE | 2021-01-10 12:15 | PM.DS ---
DS: Admitting Diagnosis Discharge Date 01/09/21 Admitting Diagnosis Syncope Orthostatic hypotension Paroxysmal atrial fibrillation CAD Chronic kidney disease Diabetes mellitus DS: Discharge Diagnosis Discharge Diagnosis (1) Syncope and collapse: Code(s): R55 - Syncope and collapse Status: Acute Assessment and Plan: Continue midodrine and florinef. He will be on midodrine 15 mg on a as needed basis every 6 are as per Neurology recommendation. Continue lower extremity compression with compression stockings with 20 mm compression. Patient was educated about the need to avoid supine position and be careful while changing position. Supportive care Encourage ambulation Q shift. Progressive standing Bilateral compression stockings to above the knees; obtained 20 mm of mercury compression stockings abdominal binder with ambulation Pt to sit or stand for at least 3 minutes to ensure stability, ambulate with extreme caution and push hydration at least 3-4L free water daily. Neurology recommendations appreciated. Neurology service is considering droxidopa. (2) Visual problems: Code(s): H54.7 - Unspecified visual loss Status: Acute Assessment and Plan: Patient is having visual problems, secondary to syncope with transient hypotension. There resolved at this time. No further evaluation. (3) BPV (benign positional vertigo): Qualifiers: Laterality: unspecified laterality Qualified Code(s): H81.10 - Benign paroxysmal vertigo, unspecified ear Code(s): H81.10 - Benign paroxysmal vertigo, unspecified ear Status: Acute Assessment and Plan: - patent complains of sensation of room spinning; symptoms are in remission after patient was started on low dose meclizine - CT scan with no findings - Neurology recommendations reviewed and appreciated - Neuro exam performed by myself is grossly nonfocal and is not concerning for acute stroke DS: Summary Hospital Course Hospital Course: As above Time Spent with Patient Time attestation: Total time spent providing and/or coordinating discharge services: > 35 minutes Exam Narrative: General awake and alert not in acute distress CVS S1-S2 no murmur Respiratory no wheezes or crepitation respiration nonlabored GI soft nontender nondistended no hepatosplenomegaly 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 oriented x3 and grossly nonfocal neurological exam Psychiatric cooperative appropriate mood and affect Extremities no edema DS: Data Data Completed and Pending Labs on day of discharge: Labs from last 24 hours 01/10/21 01/10/21 01/09/21 11:54 07:45 20:47 POC Capillary Glucose 180 H 245 H 170 H 01/09/21 16:26 POC Capillary Glucose 188 H Discharge Plan Discharge Attending physician on discharge: Vidhya Boo Consulting providers: Rey Marquez ; Slade Veloz Discharging Clinician: Vidhya Boo Anticipated Discharge Date/Time: 01/10/21 12:10 Patient Disposition: SNF Activity: may shower and as tolerated Diet: heart healthy and diabetic Discharge Instructions: Pt to sit or stand for at least 3 minutes to ensure stability, ambulate with extreme caution and push hydration at least 3-4L free water daily. Patient needs to avoid supine position, care needs to be taken while changing positions, wear thigh high sarah-hose stockings Continue lower extremity compression with compression stockings with 20 mm compression. Encourage ambulation Q shift. Progressive standing Bilateral compression stockings to above the knees; obtained 20 mm of mercury compression stockings abdominal binder with ambulation Patient best served with referral to Neurology at [facility] given severe persistent orthostatic hypotension likely secondary to autonomic dysfunction related to diabetes mellitus and neurocardiogenic syncope. There is little else that can be done at [facility] for him. Patient Instructions: Pain Management
[2021-01-10 14:31] VITALS: BP 188/87; PULSE 89; RESP 18; TEMP 36.3; O2SAT 100
--- NOTE | 2021-01-10 19:13 | PC.NURSE ---
Yaniv COBOS called at 1910 to say that patient tested covid + there. attempted to contact [facility] house supervisor to make aware. will reattempt
== END 2021-01-10 15:51 | DRG 74 ==
LOC: ANHED 19:28 → ANH3MEDSUR 12-28 01:14
PROVIDERS: Internal Medicine; Admitting Provider Internal Medicine; Emergency Provider Emergency Medicine; PCP Family Medicine; Visit Provider Internal Medicine Critical Care Medicine
DX: E11.43 Type 2 diabetes mellitus with diabetic autonomic (poly)neuropathy (principal); N17.9 Acute kidney failure, unspecified; I48.0 Paroxysmal atrial fibrillation; E11.22 Type 2 diabetes mellitus with diabetic chronic kidney disease; N18.30 Chronic kidney disease, stage 3 unspecified; E11.42 Type 2 diabetes mellitus with diabetic polyneuropathy; I95.1 Orthostatic hypotension; E11.59 Type 2 diabetes mellitus with other circulatory complications; I15.2 Hypertension secondary to endocrine disorders; E11.319 Type 2 diabetes mellitus with unspecified diabetic retinopathy without macular edema; Z59.00 Homelessness unspecified; I25.10 Atherosclerotic heart disease of native coronary artery without angina pectoris; I25.2 Old myocardial infarction; H81.10 Benign paroxysmal vertigo, unspecified ear; E78.5 Hyperlipidemia, unspecified; D64.9 Anemia, unspecified; H54.7 Unspecified visual loss; R50.9 Fever, unspecified; E87.6 Hypokalemia; W19.XXXA Unspecified fall, initial encounter; Z28.21 Immunization not carried out because of patient refusal; Z79.4 Long term (current) use of insulin; Z79.82 Long term (current) use of aspirin; Z79.84 Long term (current) use of oral hypoglycemic drugs; Z79.899 Other long term (current) drug therapy; Z86.73 Personal history of transient ischemic attack (TIA), and cerebral infarction without residual deficits; Z98.42 Cataract extraction status, left eye; Z98.41 Cataract extraction status, right eye; Z96.1 Presence of intraocular lens
CPT/HCPCS: 36415; 70450; 72125; 80048; 80053; 82530; 82550; 82948; 83605; 83735; 84100; 85025; 85027; 85610; 85652; 86140; 87040; 93005; 96360; 96361; 97161; 97165; 99285; A9270; G0378; G0379; J1644; J1815; J7030; J7040

== ENCOUNTER 2021-11-21 21:13 | Observation (INO) | payer OTHER, SELFPAY ==
[2021-11-21] VITALS (8 sets, daily range): BP systolic 157–188; BP diastolic 74–82; PULSE 84–90; RESP 9–22; TEMP 36.9; O2SAT 95–98
--- NOTE | ~2021-11-21 | XR_ITS ---
EXAMINATION: XR chest 1V portable DATE: 11/21/2021 22:01 INDICATION: Syncope. TECHNIQUE: A single frontal view of the chest was obtained on 2 radiographs. COMPARISON: Chest single view 12/02/2020 FINDINGS: There is mild atelectasis at left lung base. No pleural effusion or pneumothorax. The heart size is normal. There is an electronic implant overlying left chest wall. IMPRESSION: 1. Mild atelectasis at left lung base. Reviewed, dictated and finalized at location A.
--- NOTE | 2021-11-21 21:20 | ECG_ITS ---
Measurements Intervals [place] Rate: 88 P: 46 ND: 178 QRS: 74 QRSD: 100 T: 188 QT: 380 QTc: 461 Interpretive Statements SINUS RHYTHM LEFT VENTRICULAR HYPERTROPHY AND ST-T CHANGE ST-T WAVE ABNORMALITY IN DIFFUSE LEADS- CONSIDER ISCHEMIA BASELINE ARTIFACT- I, II, III ABNORMAL ECG COMPARED TO ECG 12/30/2020 12:27:27 NO SIGNIFICANT CHANGES Electronically Signed On 11-22-2021 6:37:15 CDT by Colin Moreland D.O.
[2021-11-21] MEDS: SODIUM CHLORIDE 0.9% IV 1,000 ML 999 ML IV CONT (22:07)
[2021-11-21 22:34] LABS: Basophils Absolute Auto 0.1 K/mm3 (0.0-0.1); Basophils Percent Auto 0.6 % (0.2-1.2); Eosinophils Absolute Auto 0.1 K/mm3 (0-0.3); Eosinophils Percent Auto 0.6 % (0-4.4); Hematocrit 35.1 % (42.0-52.0); Hemoglobin 11.7 g/dL (14.0-18.0); Immature Granulocyte Absolute 0.03 K/mm3 (0.00-0.031); Immature Granulocyte Percent A 0.4 % (0-0.5); Lymphocytes Absolute Auto 1.85 K/mm3 (0.9-3.2); Lymphocytes Percent Auto 22.9 % (18.3-44.2); Mean Corpuscular HGB Conc 33.3 g/dl (32-36); Mean Corpuscular Hemoglobin 32.9 pg (26-34); Mean Corpuscular Volume 98.6 fl (80-100); Mean Platelet Volume 10.9 fl (7.4-10.4); Monocytes Absolute Auto 0.4 K/mm3 (0.1-0.6); Monocytes Percent Auto 4.8 % (2.6-8.5); Neutrophils Absolute Auto 5.7 K/mm3 (1.3-6.7); Neutrophils Percent Auto 70.7 % (45.5-73.1); Platelet Count Result 202 k/mm3 (150-375); Red Blood Count 3.56 M/mm3 (4.6-6.20); Red Cell Distribution Width 13.1 % (11.5-14.5); White Blood Count 8.1 K/mm3 (4.5-10.0)
[2021-11-21 22:48] LABS: Lactic Acid Reflex 2.8 mmol/L (0.7-2.0)
[2021-11-21 22:51] LABS: Alanine Aminotransferase 25 U/L (6-50); Albumin Level 4.3 g/dL (3.5-5.1); Alkaline Phosphatase 62 U/L (38-126); Anion Gap 10 mmol/L (8-16); Aspartate Amino Transferase 30 U/L (17-59); Bilirubin,Total 0.3 mg/dL (0.2-1.3); Blood Urea Nitrogen 33 mg/dL (9-20); Calcium 8.8 mg/dL (8.4-10.2); Carbon Dioxide 28 mmol/L (22-30); Chloride 105 mmol/L (98-107); Estimated CRCL calculation 52 ml/min; Estimated Glomerular Filt Rate 47; Glucose 169 mg/dL (65-110); Magnesium 1.9 mg/dL (1.6-2.3); Potassium 4.3 mmol/L (3.4-5.0); Sodium 143 mmol/L (137-145)
[2021-11-21 23:01] LABS: Appearance Urine Clear (Clear); Bilirubin Urine Negative (Negative); Blood Urine Trace-lysed (Negative); Color Urine Yellow (Yellow); Glucose Urine UA Trace mg/dL (Negative); Ketones Urine Negative (Negative); Leukocyte Esterase Ur Negative LEU/UL (Negative); Nitrate Urine Negative (Negative); Protein Urine 3+ mg/dL (Negative); Specific Grav Ur 1.025 (1.001-1.035); Urobilinogen Urine 0.2 mg/dL (<2.0)
[2021-11-21 23:11] LABS: Mucus Urine Rare /lpf; RBC Urine 0-2 /hpf (0-2); Squamous Epithelial Cell Urine Rare /hpf (Few); WBC Urine 0-3 /hpf
[2021-11-21 23:13] LABS: Add Urine Microscopic? YES
[2021-11-21 23:17] LABS: Troponin I 0.068 ng/mL (0.000-0.034)
[2021-11-21 23:52] LABS: Troponin I 0.064 ng/mL (0.000-0.034)
[2021-11-22] VITALS (22 sets, daily range): BP systolic 148–195; BP diastolic 61–87; PULSE 72–100; RESP 8–23; TEMP 36.1–36.6; O2SAT 94–100; BMI 29.2
--- NOTE | 2021-11-22 | ECHO_ITS ---
Patient Info Name: Jorge Alberto Cortez Age: 66 years : 1955 Gender: Male Ht: 75 in Wt: 233 lbs BSA: 2.38 m2 HR: 78 bpm BP: 148 / 71 mmHg Heart Rhythm: Sinus Rhythm Technical Quality: Fair Exam Date: 11/22/2021 3:13 PM Exam Location: [facility] Pulmonary Exam Room: 231 Patient Status: Inpatient Admit Date: 11/22/2021 Staff Ordering Physician: Leonel Alfonso MD Customer Sales Distributor: Sofia Sims RDCS Attending Provider: Leonel Alfonso MD Exam Type: CA echo doppler color flow Study Info Indications - syncope Complete two-dimensional, color flow and Doppler transthoracic echocardiogram is performed. Summary 1. Complete two-dimensional, color flow and Doppler transthoracic echocardiogram is performed. 2. Left ventricular chamber dimension is normal. 3. Left ventricular systolic function is normal, estimated at 65-70%. 4. There is moderately increased left ventricular wall thickness. 5. The left ventricular diastolic function is grade I diastolic dysfunction. 6. Left atrial chamber dimension is mildly enlarged. 7. There is mild aortic valve regurgitation. 8. There is mild mitral valve regurgitation. 9. The mitral valve has thickened leaflets. 10. There is mild tricuspid valve regurgitation. Left Ventricle Left ventricular chamber dimension is normal. Left ventricular systolic function is normal, estimated at 65-70%. There is moderately increased left ventricular wall thickness. The left ventricular diastolic function is grade I diastolic dysfunction. Right Ventricle Right ventricular chamber dimension is normal. Right ventricular systolic function is normal. Left Atria Left atrial chamber dimension is mildly enlarged. Right Atria Right atrial chamber dimension is normal. Atrial Septum Intact interatrial septum visualized by color flow imaging. Aortic Valve The aortic valve is trileaflet. There is mild aortic valve sclerosis. There is no aortic valve stenosis. There is mild aortic valve regurgitation. Pulmonic Valve The pulmonic valve is normal. There is no pulmonic valve stenosis. There is trace pulmonic regurgitation. Mitral Valve The mitral valve has thickened leaflets. There is no mitral valve stenosis. There is mild mitral valve regurgitation. Tricuspid Valve The tricuspid valve leaflets are normal. There is no significant tricuspid valve stenosis. There is mild tricuspid valve regurgitation. No pulmonary hypertension, estimated pulmonary arterial systolic pressure is 33 mmHg. Pericardium/Pleural The pericardium appears normal. There is trivial pericardial effusion. Inferior Vena Cava Normal inferior vena cava with >50% collapse upon inspiration consistent with normal right atrial pressure, 8 mmHg. Aorta The aortic root size at the sinus of Valsalva is normal. Left Ventricular Outflow Tract Name Value Normal LVOT 2D LVOT Diameter 2.1 cm LVOT Doppler LVOT Peak Gradient 6 mmHg LVOT Mean Gradient 4 mmHg LVOT VTI 21 cm LVOT VTI/AV VTI Ratio
--- NOTE | 2021-11-22 00:10 | ED.GENADULT ---
HPI - General Adult General Chief complaint: Syncope Stated complaint: possible syncopal episode Time Seen by Provider: 11/21/21 21:25 History of Present Illness HPI narrative: Patient is a 66-year-old gentleman who presents the emergency department with chief complaint of syncope. The patient reports that he was recently admitted [facility] and had a cardiac catheterization with stent placement. Patient was discharged back to the assisted living facility where he is at the patient reports that whenever he has been standing up he has had episodes where he feels as though he is going to pass out including today where he had an episode when he stood up he lost consciousness briefly. The patient denies any injuries from the syncopal episode but states he does generally feels unwell afterwards. Patient denies active chest pain denies shortness of breath. Related Data Home Medications Medication Instructions Recorded Confirmed gabapentin 400 mg capsule 400 mg PO TID 01/08/19 12/28/20 metformin 1,000 mg tablet 1,000 mg PO BID 12/11/20 12/28/20 potassium chloride 20 mEq 20 meq PO DAILY@0800 12/15/20 12/28/20 tablet,extended release (K-Tab) insulin glargine 100 unit/mL 30 unit subcut QAM 12/28/20 12/28/20 subcutaneous solution (Lantus U-100 Insulin) amlodipine 10 mg tablet 10 mg PO DAILY 11/21/21 buspirone 7.5 mg tablet mg 11/21/21 ergocalciferol (vitamin D2) 1,250 11/21/21 mcg (50,000 unit) capsule furosemide 20 mg tablet 20 mg PO DAILY 11/21/21 insulin aspart U-100 100 unit/mL subcut 11/21/21 (3 mL) subcutaneous pen (Novolog Flexpen U-100 Insulin aspart) insulin glargine 100 unit/mL (3 unit subcut 11/21/21 mL) subcutaneous pen (Lantus Solostar U-100 Insulin) lisinopril 40 mg tablet 40 mg PO DAILY 11/21/21 meclizine 12.5 mg tablet 25 mg PO QID 11/21/21 meloxicam 7.5 mg tablet mg 11/21/21 metoprolol succinate 50 mg 50 mg PO DAILY 11/21/21 tablet,extended release 24 hr ondansetron 4 mg disintegrating mg 11/21/21 tablet polyethylene glycol 3350 17 g 11/21/21 gram/dose oral powder sennosides 8.6 mg tablet (senna) mg 11/21/21 ticagrelor 90 mg tablet (Brilinta) mg 11/21/21 Allergies Allergy/AdvReac Type Severity Reaction Status Date / Time No Known Allergies Allergy Verified 11/21/21 22:03 Review of Systems Review of Systems: A 10 system review of systems was completed on the patient and is negative except for what is stated in the HPI. Nursing and ancillary documentation was reviewed. 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 Diabetic retinopathy S/p retinal surgery Diastolic dysfunction Noted on prior echocardiogram but most recent echocardiogram demonstrating hyperdynamic left ventricle with EF greater than 70% with no mention of diastolic dysfunction Essential hypertension History of angina Hyperlipidemia Kidney stones NSTEMI (non-ST elevated myocardial infarction) With chronic troponin elevation Orthostatic hypotension Paroxysmal atrial fibrillation Not on anticoagulation due to high has bled score/high fall risk Peripheral neuropathy Surgical History Surgical History History of cholecystectomy History of loop recorder patient states that it no longer works. Status post cataract extraction of both eyes with insertion of intraocular lens Family History Family History (Reviewed 11/22/21 @ 00:12 by Lamine
--- NOTE | 2021-11-22 00:16 | PM.IMHP ---
H&P: HPI History of Present Illness Date/Time: 11/22/21 00:16 Chief Complaint: syncope Narrative: This is a 66-year-old male with past medical history significant for orthostatic hypotension, type 2 diabetes mellitus, hypertension, coronary artery disease, status post stent placement just recently at outside hospital. Patient presents to the emergency room after having a syncopal episode well standing up no trauma has been found patient denies any pain he has been his usual state of health denies any fevers, rigors, chills, cough, lightheadedness, dizziness, chest pain, shortness of breath, leg swelling. States that he has been feeling well. Preliminary workup has been essentially nonrevealing. Patient has been admitted for further evaluation management and treatment. Patient is known to have recurrent syncopal episodes in the past. Review of Systems Review of Systems: syncope. Constitutional: Constitutional: Denies chills, Denies fever(s), Denies malaise and Denies weakness Eyes: Eyes: Denies change in vision ENT: Denies dysphagia, Denies vertigo, Reports dizziness and Denies odynophagia Cardiovascular: Cardiovascular: Denies chest pain, Reports syncope, Denies irregular heart rhythm, Denies lightheadedness, Denies palpitations and Denies dyspnea on exertion Respiratory: Respiratory: Denies chest congestion, Denies cough, Denies excessive phlegm production, Denies pain on inspiration, Denies dyspnea and Denies dyspnea on exertion Gastrointestinal: Gastrointestinal: Denies abdominal pain, Denies dyspepsia, Denies heartburn, Denies nausea and Denies vomiting Genitourinary: Genitourinary: Reports no additional male genitourinary complaints and Reports as per HPI Musculoskeletal: Musculoskeletal: Denies arthralgias Integumentary/Breasts: Skin/Breast: Denies rash Neurologic: Denies vertigo, Denies dizziness, Reports syncope, Denies focal weakness and Denies Sensory deficit (Neuro) Psychiatric: Psychiatric: Reports no additional psychiatric complaints and Reports as per HPI Endocrine: Endocrine: Denies cold intolerance, Denies flushing, Denies heat intolerance, Denies polyphagia, Denies polydipsia and Denies palpitations Hematologic/Lymphatic: Hematologic/Lymphatic: Reports no additional hematologic/lymphatic complaints and Reports as per HPI Allergic/Immunologic: Allergic/Immunologic: Reports no additional allergic/immunologic complaints and Reports as per HPI [facility] Past Medical History Medical History Arthritis CAD (coronary artery disease) Negative stress test 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 Diabetic retinopathy S/p retinal surgery Diastolic dysfunction Noted on prior echocardiogram but most recent echocardiogram demonstrating hyperdynamic left ventricle with EF greater than 70% with no mention of diastolic dysfunction Essential hypertension History of angina Hyperlipidemia Kidney stones NSTEMI (non-ST elevated myocardial infarction) With chronic troponin elevation Orthostatic hypotension Paroxysmal atrial fibrillation Not on anticoagulation due to high has bled score/high fall risk Peripheral neuropathy Surgical History Surgical History History of cholecystectomy History of loop recorder patient states that it no longer works. Status post cataract extraction of both eyes with insertion of intraocular lens Family History Family History Sibling Hypertension Father Polycyst
[2021-11-22 01:09] LABS: SARS-CoV-2 RNA PCR Negative
[2021-11-22 01:31] LABS: Reflex Lactic Acid Yes or No Add Lactic
[2021-11-22 02:30] LABS: Lactic Acid 1.2 mmol/L (0.7-2.0)
--- NOTE | 2021-11-22 02:53 | ADMGEN ---
This patient, Jorge Alberto Cortez, was admitted to IMU Room 231-01 on 11/22/21 at 0240. Patient/family oriented to hospital policies and general routines including ID bracelet, bed and alarms, visiting hours, pain management, procedures, bathroom and other care routines, personal items, smoking policy, room service/diet, and visiting hours. Information on how to activate the Rapid Response Team has been discussed. Patient/Family are encouraged to report perceived risks to care and to ask questions if they do not understand what they are told or what they should do.
[2021-11-22] MEDS: amLODIPine BESYLATE 5 MG TABLET 10 MG PO (05:04)
[2021-11-22 06:00] LABS: Troponin I 0.071 ng/mL (0.000-0.034)
[2021-11-22] MEDS: GABAPENTIN 400 MG CAPSULE PO ×3 (08:47→17:38)
[2021-11-22] MEDS: TICAGRELOR 90 MG TABLET PO ×2 (08:47→20:19)
[2021-11-22] MEDS: lisinopriL 20 MG TABLET 40 MG PO (08:48)
[2021-11-22] MEDS: ASPIRIN 81 MG ENTERIC TABLET PO (08:48)
[2021-11-22] MEDS: FERROUS SULFATE 324 MG TABLET PO ×2 (08:48→17:38)
[2021-11-22] MEDS: MAGNESIUM OXIDE 400 MG TABLET PO (08:48)
[2021-11-22] MEDS: POTASSIUM CHLORIDE 20 MEQ TABLET.ER PO (08:48)
[2021-11-22] MEDS: METOPROLOL SUCCINATE EXT REL 50 MG TABCR PO (08:48)
[2021-11-22] MEDS: FUROSEMIDE 20 MG TABLET PO (08:48)
[2021-11-22] MEDS: FLUDROCORTISONE ACETATE 0.1 MG TABLET PO (08:48)
[2021-11-22 09:04] LABS: Glucose Point of Care 120 mg/dl (65-105)
[2021-11-22] MEDS: INSULIN ASPART (*BKC) 100 UNITS/ML 9 UNITS SUB-Q ×3 (09:29→17:38)
--- NOTE | 2021-11-22 10:46 | PM.IMPN ---
Progress Note: A&P Assessment and Plan (1) Syncope: Code(s): R55 - Syncope and collapse Status: Acute (2) Orthostatic hypotension: Code(s): I95.1 - Orthostatic hypotension Status: Acute (3) CAD (coronary artery disease): Code(s): I25.10 - Atherosclerotic heart disease of [place] coronary artery without angina pectoris Status: Acute (4) Hypertension associated with type 2 diabetes mellitus: Code(s): E11.59 - Type 2 diabetes mellitus with other circulatory complications; I15.2 - Hypertension secondary to endocrine disorders Status: Acute (5) Insulin dependent type 2 diabetes mellitus: Code(s): E11.9 - Type 2 diabetes mellitus without complications; Z79.4 - [facility] (current) use of insulin Status: Acute (6) Chronic kidney disease: Qualifiers: Chronic kidney disease stage: stage 3 (moderate) Qualified Code(s): N18.3 - Chronic kidney disease, stage 3 (moderate) Code(s): N18.9 - Chronic kidney disease, unspecified Status: Chronic Plan Syncopal episode tele monitor. Orthostatic negative. Continue to monitor orthostatic vitals. Also presumably be have autonomic dysfunction related to diabetes mellitus leading to recurrent syncope used to be on midodrine and Florinef. Will obtain record from [facility] with regard to his recent catheterization and/or echo History of recurrent syncope from orthostatic hypotension/hypoglycemia in the past Moderate to severe short-term memory loss Coronary artery disease status post stents at [facility] recently on aspirin Brilinta metoprolol and atorvastatin. ANDREW mild 1.5 on admission with some lactic acidosis. Lactic acidosis 2.8 on admission resolved with fluid resuscitation Elevated troponin chronic elevation with flat trajectory. History of uncontrolled diabetes mellitus Chronic kidney disease stage 3 Orthostatic hypotension on fludrocortisone at home Vitamin B12 deficiency Peripheral neuropathy DVT prophylaxis Lovenox Code status full code Subjective Date/time seen: 11/22/21 10:46 Interval history: HPI:This is a 66-year-old male with past medical history significant for orthostatic hypotension, type 2 diabetes mellitus, hypertension, coronary artery disease, status post stent placement just recently at outside hospital.? Patient presents to the emergency room after having a syncopal episode well standing up no trauma has been found patient denies any pain he has been his usual state of health denies any fevers, rigors, chills, cough, lightheadedness, dizziness, chest pain, shortness of breath, leg swelling.? States that he has been feeling well.? Preliminary workup has been essentially nonrevealing.? Patient has been admitted for further evaluation management and treatment.? Patient is known to have recurrent syncopal episodes in the past. 11/22/2021: Patient presented with syncopal episode. Episodes of lightheadedness when he stands up reported no chest pain or shortness of breath. Prior history of similar episodes in the last. Recently had cardiac catheterization with stent placement at [facility]. Has underlying diagnosis of diabetes history of CVA hypertension retinopathy and peripheral neuropathy. He was hypertensive in the was evaluated in the ER negative for orthostasis. Labs with stable anemia monitor WBC, creatinine of 1.5 which is higher than his baseline of 1. Elevated lactic acid on admission at 2.8 which is improved to 1.2 this morning. Highly elevated troponin is 0.068-0.06 4-0.071 UA with some how we in cast along with proteinuria and trace glucose otherwise negative for infection. COVID swab is negative. Chest x-ray with mild atelectasis at left lung base. EKG with sinus rhythm, left ventricular hypertrophy with strain pattern. Compared to EKG dated 12/2020 new changes is noted. Line today he is feeling well without any complaints. He said he got up t
[2021-11-22 12:37] LABS: Glucose Point of Care 93 mg/dl (65-105)
[2021-11-22 13:22] LABS: Glucose Point of Care 119 mg/dl (65-105)
[2021-11-22 16:27] LABS: Glucose Point of Care 102 mg/dl (65-105)
[2021-11-22 19:53] LABS: Glucose Point of Care 161 mg/dl (65-105)
[2021-11-22] MEDS: SERTRALINE HCL 25 MG TABLET PO (20:19)
[2021-11-22] MEDS: INSULIN GLARGINE (*BKC) 100 UNITS/ML 30 UNITS SUB-Q (20:19)
[2021-11-22] MEDS: ATORVASTATIN 40 MG TABLET PO (20:19)
[2021-11-22] MEDS: MELOXICAM 7.5 MG TABLET PO (20:19)
[2021-11-22] MEDS: busPIRone HCL 2.5 MG TABLET 7.5 MG PO (20:19)
[2021-11-23] VITALS (7 sets, daily range): BP systolic 162–179; BP diastolic 67–90; PULSE 62–99; RESP 20–22; TEMP 35.9–37.3; O2SAT 99–100
[2021-11-23 04:45] LABS: Basophils Percent Auto 0.7 % (0.2-1.2); Eosinophils Absolute Auto 0.1 K/mm3 (0-0.3); Eosinophils Percent Auto 2.3 % (0-4.4); Hematocrit 32.9 % (42.0-52.0); Hemoglobin 10.9 g/dL (14.0-18.0); Immature Granulocyte Absolute 0.01 K/mm3 (0.00-0.031); Immature Granulocyte Percent A 0.2 % (0-0.5); Lymphocytes Absolute Auto 2.15 K/mm3 (0.9-3.2); Mean Corpuscular HGB Conc 33.1 g/dl (32-36); Mean Corpuscular Hemoglobin 32.7 pg (26-34); Mean Corpuscular Volume 98.8 fl (80-100); Mean Platelet Volume 10.3 fl (7.4-10.4); Monocytes Absolute Auto 0.5 K/mm3 (0.1-0.6); Monocytes Percent Auto 7.5 % (2.6-8.5); Neutrophils Absolute Auto 3.4 K/mm3 (1.3-6.7); Neutrophils Percent Auto 54.3 % (45.5-73.1); Platelet Count Result 164 k/mm3 (150-375); Red Blood Count 3.33 M/mm3 (4.6-6.20); White Blood Count 6.2 K/mm3 (4.5-10.0)
[2021-11-23 04:59] LABS: Alanine Aminotransferase 21 U/L (6-50); Albumin Level 3.4 g/dL (3.5-5.1); Alkaline Phosphatase 58 U/L (38-126); Anion Gap 10 mmol/L (8-16); Aspartate Amino Transferase 23 U/L (17-59); Bilirubin,Total 0.3 mg/dL (0.2-1.3); Blood Urea Nitrogen 23 mg/dL (9-20); Calcium 8.3 mg/dL (8.4-10.2); Carbon Dioxide 30 mmol/L (22-30); Chloride 104 mmol/L (98-107); Estimated CRCL calculation 52 ml/min; Estimated Glomerular Filt Rate 47; Glucose 264 mg/dL (65-110); Magnesium 2.1 mg/dL (1.6-2.3); Potassium 3.4 mmol/L (3.4-5.0); Sodium 144 mmol/L (137-145)
[2021-11-23 08:11] LABS: Glucose Point of Care 252 mg/dl (65-105)
[2021-11-23] MEDS: TICAGRELOR 90 MG TABLET PO (10:02)
[2021-11-23] MEDS: METOPROLOL SUCCINATE EXT REL 50 MG TABCR PO (10:02)
[2021-11-23] MEDS: FLUDROCORTISONE ACETATE 0.1 MG TABLET PO (10:03)
[2021-11-23] MEDS: GABAPENTIN 400 MG CAPSULE PO ×2 (10:03→13:14)
[2021-11-23] MEDS: amLODIPine BESYLATE 5 MG TABLET 10 MG PO (10:03)
[2021-11-23] MEDS: MAGNESIUM OXIDE 400 MG TABLET PO (10:03)
[2021-11-23] MEDS: ASPIRIN 81 MG ENTERIC TABLET PO (10:04)
[2021-11-23] MEDS: INSULIN ASPART (*BKC) 100 UNITS/ML 9 UNITS SUB-Q ×2 (10:04→13:14)
[2021-11-23] MEDS: POTASSIUM CHLORIDE 20 MEQ TABLET.ER PO (10:04)
[2021-11-23] MEDS: FERROUS SULFATE 324 MG TABLET PO (10:04)
[2021-11-23] MEDS: FUROSEMIDE 20 MG TABLET PO (10:04)
[2021-11-23] MEDS: lisinopriL 20 MG TABLET 40 MG PO (10:04)
[2021-11-23 11:46] LABS: Glucose Point of Care 132 mg/dl (65-105)
--- NOTE | 2021-11-23 15:35 | PM.DS ---
DS: Admitting Diagnosis Discharge Date 11/23/2021 Admitting Diagnosis syncope DS: Discharge Diagnosis Discharge Diagnosis (1) Syncope: Code(s): R55 - Syncope and collapse Status: Acute (2) Orthostatic hypotension: Code(s): I95.1 - Orthostatic hypotension Status: Acute (3) CAD (coronary artery disease): Code(s): I25.10 - Atherosclerotic heart disease of [place] coronary artery without angina pectoris Status: Acute (4) Hypertension associated with type 2 diabetes mellitus: Code(s): E11.59 - Type 2 diabetes mellitus with other circulatory complications; I15.2 - Hypertension secondary to endocrine disorders Status: Acute (5) Insulin dependent type 2 diabetes mellitus: Code(s): E11.9 - Type 2 diabetes mellitus without complications; Z79.4 - [facility] use of insulin Status: Acute (6) Chronic kidney disease: Qualifiers: Chronic kidney disease stage: stage 3 (moderate) Qualified Code(s): N18.3 - Chronic kidney disease, stage 3 (moderate) Code(s): N18.9 - Chronic kidney disease, unspecified Status: Chronic DS: Summary Hospital Course Hospital Course: #Syncopal episode tele monitor.? Orthostatic negative.? Continue to monitor orthostatic vitals which remain negative.? Also presumably be have autonomic dysfunction related to diabetes mellitus leading to recurrent syncope used to be on midodrine and Florinef. per never has been restarted.? Echo with ejection fraction 65-70%, grade 1 diastolic dysfunction no significant valvular abnormality noted. He will need to use compression stockings to avoid this also advised to hang onto something while he stands up and to take a longer time to get up all of his episodes are only when he stands up suggesting orthostasis. He has recurrent problem with this in the past Leading to multiple admissions his initial admission laboratory workup also reveals some mild ANDREW and lactic acidosis which quickly resolved with fluid resuscitation indicating some amount of dehydration. #History of recurrent syncope from orthostatic hypotension/hypoglycemia in the past . #Moderate to severe short-term memory loss #Coronary artery disease status post stents at [facility] recently on aspirin Brilinta metoprolol and atorvastatin. continue to follow with Cardiology as an outpatient basis as previously scheduled #ANDREW mild 1.5 on admission with some lactic acidosis. creatinine remained the same likely her baseline #Lactic acidosis 2.8 on admission resolved with fluid resuscitation #Elevated troponin chronic elevation with flat trajectory.? #History of uncontrolled diabetes mellitus #Chronic kidney disease stage 3 #Orthostatic hypotension on fludrocortisone at home #Vitamin B12 deficiency #Peripheral neuropathy #DVT prophylaxis Lovenox #Code status full code Time Spent with Patient Time attestation: Total time spent providing and/or coordinating discharge services: 45 minutes Exam Narrative: GENERAL: The patient is well developed, not in acute distress HEENT: Nonicteric sclerae, PERRLA, EOMI. Oropharynx clear. Moist mucous membranes. Conjunctivae appear well perfused. CHEST: Chest wall is nontender. HEART: Regular rate and rhythm without murmur, rubs, or gallops LUNGS: Clear to auscultation bilaterally. no respiratory distress ABDOMEN: Soft, positive bowel sounds, non-tender, no organomegaly. SKIN: No rash, no excessive bruising, petechiae, or purpura. NEUROLOGIC: Cranial nerves II-XII intact, alert and oriented x 3, no gross motor deficits slow speech EXTREMITIES: no edema, cyanosis or clubbing DS: Data Data Completed and Pending Completed studies during hospitalization: Exam Type: ? ? CA echo doppler color flow Study Info Indications ?? ? - syncope Complete two-dimensional, color flow and Doppler transthoracic echocardiogram is performed. Account #: ? ? [id number] Summary ? 1. Comple
== END 2021-11-23 15:57 ==
LOC: ANHED 11-22 00:14 → ANHIMU 11-22 02:19
PROVIDERS: Admitting Provider Internal Medicine; Emergency Provider Emergency Medicine; Visit Provider Internal Medicine
DX: I95.1 Orthostatic hypotension (principal); M19.90 Unspecified osteoarthritis, unspecified site; I25.10 Atherosclerotic heart disease of native coronary artery without angina pectoris; Z95.5 Presence of coronary angioplasty implant and graft; D64.9 Anemia, unspecified; E11.319 Type 2 diabetes mellitus with unspecified diabetic retinopathy without macular edema; E11.59 Type 2 diabetes mellitus with other circulatory complications; E78.5 Hyperlipidemia, unspecified; I12.9 Hypertensive chronic kidney disease with stage 1 through stage 4 chronic kidney disease, or unspecified chronic kidney disease; N18.30 Chronic kidney disease, stage 3 unspecified; E11.22 Type 2 diabetes mellitus with diabetic chronic kidney disease; Q04.0 Congenital malformations of corpus callosum; I25.2 Old myocardial infarction; I48.91 Unspecified atrial fibrillation; I08.3 Combined rheumatic disorders of mitral, aortic and tricuspid valves; R94.31 Abnormal electrocardiogram [ECG] [EKG]; J98.11 Atelectasis; Z20.822 Contact with and (suspected) exposure to COVID-19; R74.02 Elevation of levels of lactic acid dehydrogenase [LDH]; E53.8 Deficiency of other specified B group vitamins; E11.42 Type 2 diabetes mellitus with diabetic polyneuropathy; Z79.84 Long term (current) use of oral hypoglycemic drugs; Z79.4 Long term (current) use of insulin; Z79.02 Long term (current) use of antithrombotics/antiplatelets; Z86.73 Personal history of transient ischemic attack (TIA), and cerebral infarction without residual deficits; Z79.82 Long term (current) use of aspirin; Z79.899 Other long term (current) drug therapy; Z83.3 Family history of diabetes mellitus; Z82.49 Family history of ischemic heart disease and other diseases of the circulatory system
CPT/HCPCS: 36415; 71045; 80053; 81001; 82948; 83605; 83735; 84484; 85025; 85610; 85730; 93005; 93306; 96360; 97161; 97165; 99285; A9270; C9803; G0378; J1815; J7030; U0003; U0005